=== PATIENT | male | born 1945 | race Caucasian/White ===

== ENCOUNTER 2016-10-29 11:22 | Inpatient (IN) | payer MEDICARE, BC ==
[~2016-10-29] VITALS: Ht 182.9 cm; Wt 99.2 kg
[~2016-10-29 11:22] MED LIST: CALC0.5C6 PO; COLA100C3 PO; RENACAP2 PO; SENS60TA PO; SEVEL800 PO
[2016-10-29 11:23] VITALS: BP 179/106; PULSE 123; RESP 18; TEMP 98.4; O2SAT 97
[2016-10-29] MEDS ORDERED: VANCOMYCIN INJ 1,000 MG in SODIUM CHLOR 0.9% 250 ML INJ 250 ML IV STA (11:47)
--- NOTE | 2016-10-29 12:21 | PD ---
HPI Chief Complaint: Abnormal Results Time Seen by Provider: 11:57 Travel History International Travel<30 days: No Contact w/Intl Traveler<30days: No Traveled to known affect area: No History of Present Illness HPI 71-year-old male patient with history of end-stage renal disease on dialysis and following up with Dr. Danielle, presents to the ER today sent in by Dr. Danielle for osteomyelitis of the spine. Patient apparently had not been feeling well and had low-grade fevers and back pains for the last few weeks, had been on vancomycin for the past month, and had an MRI done several days ago which shows osteomyelitis and discitis at the L1 level. He was sent in for further treatment. Patient denies any recent fevers but is still having some lower back pains. He denies any other symptoms. Modifying Factors: None Associated Signs & Symptoms: Possible osteomyelitis of the lumbar spine Risk Factors: On dialysis PFSH Past Medical History Anemia: Yes Autoimmune Disease: No Cancer: No Cardiovascular Problems: Yes High Cholesterol: Yes Congestive Heart Failure: Yes Diabetes: Yes (PRE) Dialysis: Yes Diminished Hearing: No Endocrine: Yes GERD: Yes Genitourinary: Yes Hepatitis: No Hiatal Hernia: No Hypertension: Yes (hx of ) Immune Disorder: No Implanted Vascular Access Dvce: No Musculoskeletal: Yes Neurologic: No Psychiatric: No Reproductive: No Respiratory: No Immunizations Current: Yes Renal Failure: Yes ( ) Sleep Apnea: Yes (undiagnosed) Thyroid Disease: No Past Surgical History Abdominal Surgery: Yes (UMBILICAL HERNIA REPAIR) Cardiac Surgery: No Ear Surgery: No Endocrine Surgery: No Eye Surgery: No Genitourinary Surgery: No Gynecologic Surgery: No Oral Surgery: No Pacemaker: No Thoracic Surgery: No Other Surgery: Yes (left arm dialysis shunt) Social History Alcohol Use: Yes (Rarely) Tobacco Use: No Substance Use: No Allergies-Medications (Allergen,Severity, Reaction): Coded Allergies: *MDRO Multi-Drug Resistant Organism (Verified Adverse Reaction, Unknown, 03/19/16) MRSA PCR screen POSITIVE - 03/13/16 Reported Meds & Prescriptions Reported Meds & Active Scripts Active Reported Renal Vitamin (B-Complex W/ C & Folic Acid) 1 Cap 1 Cap PO DAILY If on dialysis, take after treatment. Sensipar (Cinacalcet) 60 Mg Tab 60 Mg PO DAILY@1600 Renvela (Sevelamer Carbonate) 800 Mg Tab 3,200 Mg PO TID Colace (Docusate Sodium) 100 Mg Cap 100 Mg PO BID Calcitriol 0.5 Mcg Cap 0.5 Mcg PO DAILY Review of Systems Except as stated in HPI: all other systems reviewed are Neg Physical Exam Narrative GENERAL: Well-developed elderly white male patient currently not in acute distress. Awake and oriented 3. SKIN: Focused skin assessment warm/dry. HEAD: Atraumatic. Normocephalic. EYES: Pupils equal and round. No scleral icterus. No injection or drainage. ENT: No nasal bleeding or discharge. Mucous membranes pink and moist. NECK: Trachea midline. No JVD. CARDIOVASCULAR: Regular rate and rhythm. With a notable systolic murmur. RESPIRATORY: No accessory muscle use. Clear to auscultation. Breath sounds equal bilaterally. GASTROINTESTINAL: Abdomen soft, non-tender, nondistended. Hepatic and splenic margins not palpable. MUSCULOSKELETAL: No obvious deformities. No clubbing. No cyanosis. No edema. NEUROLOGICAL: Awake and alert. No obvious cranial nerve deficits. Motor grossly within normal limits. Normal speech. PSYCHIATRIC: Appropriate mood and affect; insight and judgment normal. Data Data Last Documented VS Vital Signs Date Time Temp Pulse Resp B/P Pulse Ox O2 Delivery O2 Flow Rate FiO2 10/29/16 11:23 98.4 123 18 179/106 97 Orders Complete Blood Count With Diff (10/29/16 11:47) Comprehensive Metabolic Panel (10/29/16 11:47) Lactic Acid Sepsis Protocol (10/29/16 11:47) Blood Culture (10/29/16 11:47) Blood Glucose (10/29/16 11:47) Ecg Monitoring (10/29/16 11:47) Iv Access Insert/Monitor (10/29/16 11:47) Oximetry (10/29/16 11:47) Oxygen Administration (10/29/16 11:47) Vancomycin Inj (Vancomycin Inj) (10/29/16 11:47) Admit Order (Ed Use Only) (10/29/16 14:14) Labs Laboratory Tests Test 10/29/16 12:10 White Blood Count 5.7 TH/MM3 Red Blood Count 2.76 MIL/MM3 Hemoglobin 8.8 GM/DL Hematocrit 25.7 % Mean Corpuscular Volume 93.3 FL Mean Corpuscular Hemoglobin 31.9 PG Mean Corpuscular Hemoglobin 34.2 % Concent Red Cell Distribution Width 14.1 % Platelet Count 378 TH/MM3 Mean Platelet Volume 6.9 FL Neutrophils (%) (Auto) 75.6 % Lymphocytes (%) (Auto) 12.4 % Monocytes (%) (Auto) 8.7 % Eosinophils (%) (Auto) 2.3 % Basophils (%) (Auto) 1.0 % Neutrophils # (Auto) 4.3 TH/MM3 Lymphocytes # (Auto) 0.7 TH/MM3 Monocytes # (Auto) 0.5 TH/MM3 Eosinophils # (Auto) 0.1 TH/MM3 Basophils # (Auto) 0.1 TH/MM3 CBC Comment DIFF FINAL Differential Comment Sodium Level 137 MEQ/L Potassium Level 3.9 MEQ/L Chloride Level 98 MEQ/L Carbon Dioxide Level 27.0 MEQ/L Anion Gap 12 MEQ/L Blood Urea Nitrogen 46 MG/DL Creatinine 11.56 MG/DL Estimat Glomerular Filtration 4 ML/MIN Rate Random Glucose 119 MG/DL Lactic Acid Level 1.2 mmol/L Calcium Level 10.4 MG/DL Total Bilirubin 0.4 MG/DL Aspartate Amino Transf 20 U/L (AST/SGOT) Alanine Aminotransferase 20 U/L (ALT/SGPT) Alkaline Phosphatase 62 U/L Total Protein 6.7 GM/DL Albumin 2.8 GM/DL [facility] Medical Decision Making Medical Screen Exam Complete: Yes Emergency Medical Condition: Yes Medical Record Reviewed: Yes Interpretation(s) Laboratory Tests Test 10/29/16 12:10 Red Blood Count 2.76 MIL/MM3 (4.50-5.90) Hemoglobin 8.8 GM/DL (13.0-17.0) Hematocrit 25.7 % (39.0-51.0) Mean Platelet Volume 6.9 FL (7.0-11.0) Neutrophils (%) (Auto) 75.6 % (16.0-70.0) Monocytes (%) (Auto) 8.7 % (0.0-8.0) Lymphocytes # (Auto) 0.7 TH/MM3 (1.0-4.8) Blood Urea Nitrogen 46 MG/DL (7-18) Creatinine 11.56 MG/DL (0.60-1.30) Estimat Glomerular Filtration 4 ML/MIN (>89) Rate Random Glucose 119 MG/DL (74-106) Calcium Level 10.4 MG/DL (8.5-10.1) Albumin 2.8 GM/DL (3.4-5.0) Differential Diagnosis Osteomyelitis of the lumbar spinerule out sepsis Narrative Course MRI is concerning for osteomyelitis. Case is discussed with Dr. Comer who states that he would have the patient admitted with consult to him. Case was discussed with and were for admission. Patient had been given IV antibiotics, IV vancomycin in the ER. Diagnosis Primary Impression: Osteomyelitis of lumbar spine Admitting Information Admitting Physician Requests: Admit New [place] MD Oct 29, 2016 12:21
[2016-10-29 12:41] LABS: AUTOMATED NEUTROPHIL # 4.3 TH/MM3 (1.8-7.7); BASOPHIL # 0.1 TH/MM3 (0-0.2); EOSINOPHIL # 0.1 TH/MM3 (0-0.4); EOSINOPHIL % 2.3 % (0.0-4.0); HEMATOCRIT 25.7 % (39.0-51.0); HEMO FLAGS DIFF FINAL; LYMPH % 12.4 % (9.0-44.0); LYMPHOCYTE # 0.7 TH/MM3 (1.0-4.8); MEAN CELL VOLUME 93.3 FL (80.0-100.0); MEAN CORPUSCULAR HEMOGLOBIN 31.9 PG (27.0-34.0); MEAN CORPUSCULAR HGB CONC 34.2 % (32.0-36.0); MONO % 8.7 % (0.0-8.0); NEUT % 75.6 % (16.0-70.0); PLATELET COUNT 378 TH/MM3 (150-450); RED BLOOD COUNT 2.76 MIL/MM3 (4.50-5.90); RED CELL DISTRIBUTION WIDTH 14.1 % (11.6-17.2); WHITE BLOOD COUNT 5.7 TH/MM3 (4.0-11.0)
[2016-10-29 13:05] LABS: ALT (GPT) 20 U/L (12-78); ANION GAP 12 MEQ/L (5-15); AST (GOT) 20 U/L (15-37); BLOOD UREA NITROGEN 46 MG/DL (7-18); CHLORIDE 98 MEQ/L (98-107); GLOMERULAR FILTRATION RATE 4 ML/MIN (>89); POTASSIUM 3.9 MEQ/L (3.5-5.1); SODIUM (NA) 137 MEQ/L (136-145)
[2016-10-29 13:07] LABS: ALKALINE PHOSPHATASE 62 U/L (45-117); TOTAL BILIRUBIN ADULT 0.4 MG/DL (0.2-1.0)
[2016-10-29 14:00] VITALS: BP 132/80; PULSE 94; RESP 17; O2SAT 98
--- NOTE | 2016-10-29 14:16 | PD.CONS ---
[facility] Service Neurosurg Consult Requested By Dr Shelton Reason for Consult Diskitis Primary Care Physician Araceli Freire MD History of Present Illness This is a 71-year-old male patient with history of end-stage renal disease, on chronic dialysis treatment, following up with Dr. Freire. He presents to the ER today sent by Dr. Freire for osteomyelitis of the spine. He had not been feeling well and had low-grade fevers and back pains for the last few weeks, had been on vancomycin for the past month, and had an MRI done several days ago which shows osteomyelitis and discitis at the L1. He denies any recent fevers but is still having some lower back pains. He denies any other symptoms. Past Family Social History Allergies: Coded Allergies: *MDRO Multi-Drug Resistant Organism (Verified Adverse Reaction, Unknown, 03/19/16) MRSA PCR screen POSITIVE - 03/13/16 Physical Exam Vital Signs Vital Signs Date Time Temp Pulse Resp B/P Pulse Ox O2 Delivery O2 Flow Rate FiO2 10/29/16 11:23 98.4 123 18 179/106 97 Laboratory Laboratory Tests Test 10/29/16 12:10 White Blood Count 5.7 Red Blood Count 2.76 Hemoglobin 8.8 Hematocrit 25.7 Mean Corpuscular Volume 93.3 Mean Corpuscular Hemoglobin 31.9 Mean Corpuscular Hemoglobin 34.2 Concent Red Cell Distribution Width 14.1 Platelet Count 378 Mean Platelet Volume 6.9 Neutrophils (%) (Auto) 75.6 Lymphocytes (%) (Auto) 12.4 Monocytes (%) (Auto) 8.7 Eosinophils (%) (Auto) 2.3 Basophils (%) (Auto) 1.0 Neutrophils # (Auto) 4.3 Lymphocytes # (Auto) 0.7 Monocytes # (Auto) 0.5 Eosinophils # (Auto) 0.1 Basophils # (Auto) 0.1 CBC Comment DIFF FINAL Differential Comment Sodium Level 137 Potassium Level 3.9 Chloride Level 98 Carbon Dioxide Level 27.0 Anion Gap 12 Blood Urea Nitrogen 46 Creatinine 11.56 Estimat Glomerular Filtration 4 Rate Random Glucose 119 Lactic Acid Level 1.2 Calcium Level 10.4 Total Bilirubin 0.4 Aspartate Amino Transf 20 (AST/SGOT) Alanine Aminotransferase 20 (ALT/SGPT) Alkaline Phosphatase 62 Total Protein 6.7 Albumin 2.8 Date/Time Procedure Status Source Growth 10/29/16 12:15 Aerobic Blood Culture Received Blood Peripheral Pending 10/29/16 12:15 Anaerobic Blood Culture Received Blood Peripheral Pending Result Diagram: 10/29/16 1210 10/29/16 1210 Attending Statement Neuro. Recommend admission. Obtain ESR, CRP. neuro checks in a serial fashion. CT guided biopsy of the disk space. Start immediate empiric IV antibiotics with vancomycin, Fortaz, Flagyl as he is at risk for sudden clinical deterioration . HTN. Treat with antihypertensives as needed Pulmonary. aggressive pulmonary toilette, nasotracheal suction, and breathing treatments with nebulizers. PT and OT evaluation Nutrition. NPO Renal. Continue diualysis. monitor closely urine output, BUN and creatinine Endocrine. Monitor serial Acu checks and SSI as needed in detail ID Iv ABX. Consult infectious disease Protonix for stress ulcer prophylaxis Isai galaviz and SCD's for DVT prophylaxis The exam, history, and the medical decision-making described in the above note were completed with the assistance of the mid-level provider. I reviewed and agree with the findings presented. I attest that I had a [id number] encounter with the patient on the same day, and personally performed and documented my assessment and findings in the medical record. John Comer MD Oct 29, 2016 14:16
[2016-10-29] MEDS ORDERED: MORPHINE SULFATE 4 MG/ML INJ IV PUSH PRN (16:00)
[2016-10-29] MEDS ORDERED: fentaNYL CITRATE 250 MCG/5 ML AMP ONE (17:00)
[2016-10-29] MEDS ORDERED: MIDAZOLAM HCL 5 MG/5 ML VIAL ONE (17:00)
[2016-10-29 17:03] LABS: APTT (PATIENT) 26.4 SEC (24.3-30.1); PROTHROMBIN TIME - PATIENT 11.3 SEC (9.8-11.6)
--- NOTE | 2016-10-29 17:25 | HHI.HP ---
[facility] Service [facility] Primary Care Physician Araceli Freire MD Admission Diagnosis osteomyelitis of the lumbar spine Diagnoses: Chief Complaint: back pain Travel History International Travel<30 Days: No Contact w/Intl Traveler <30 Da: No Traveled to Known Affected Are: No History of Present Illness This is a pleasant 71-year-old gentleman with a past medical history which includes high cholesterol, CHF, diabetes mellitus diet controlled, end- stage renal disease with hemodialysis, GERD, hypertension. Patient was sent to the emergency room by his department secretary Dr. Freire. Apparently, patient had been having low-grade fevers and back pains for the last few weeks. He had been on vancomycin for the past month. He had an MRI done several days ago which showed osteomyelitis and discitis at level I. Eyes any recent fevers, no chills. He still having some low back pain. Denies any cough, no sputum production. Patient was last admitted to this facility February 2016 after he was found with MSSA bacteremia and required IV antibiotics. Prior to that in 2014, he was found with strep sepsis and discitis as well as septic right shoulder that require arthroplasty. Patient has been evaluated by neurosurgery , Dr. Comer recommended CT-guided biopsy of disc space. He has been started on empiric antibiotics and cultures have been obtained. At this time, patient is going to interventional radiology for biopsy. Patient is hemodynamically stable. He has no other complaints. Patient is admitted for further evaluation and treatment Review of Systems Constitutional: DENIES: Diaphoretic episodes, Fatigue, Fever, Weight gain, Weight loss, Chills, Dizziness, Change in appetite, Night Sweats Endocrine: DENIES: Heat/cold intolerance, Polydipsia, Polyuria, Polyphagia Eyes: DENIES: Blurred vision, Diplopia, Eye inflammation, Eye pain, Vision loss , Photosensitivity, Double Vision Ears, nose, mouth, throat: DENIES: Tinnitus, Hearing loss, Vertigo, Nasal discharge, Oral lesions, Throat pain, Hoarseness, Ear Pain, Running Nose, Epistaxis, Sinus Pain, Toothache, Odynophagia Respiratory: DENIES: Apneas, Cough, Snoring, Wheezing, Hemoptysis, Sputum production, Shortness of breath Cardiovascular: DENIES: Chest pain, Palpitations, Syncope, Dyspnea on Exertion , PND, Lower Extremity Edema, Orthopnea, Claudication Gastrointestinal: DENIES: Abdominal pain, Black stools, Bloody stools, Constipation, Diarrhea, Nausea, Vomiting, Difficulty Swallowing, Anorexia Genitourinary: DENIES: Sexual dysfunction, Urinary frequency, Urinary incontinence, Urgency, Hematuria, Dysuria, Nocturia, Penile Discharge, Testicular Pain, Testicular Swelling Musculoskeletal: COMPLAINS OF: Back pain, DENIES: Joint pain, Muscle aches, Stiffness, Joint Swelling, Neck pain Integumentary: DENIES: Abnormal pigmentation, Nail changes, Pruritus, Rash Hematologic/lymphatic: DENIES: Bruising, Lymphadenopathy Immunologic/allergic: DENIES: Eczema, Urticaria Neurologic: DENIES: Abnormal gait, Headache, Localized weakness, Paresthesias, Seizures, Speech Problems, Tremor, Poor Balance Psychiatric: DENIES: Anxiety, Confusion, Mood changes, Depression, Hallucinations, Agitation, Suicidal Ideation, Homicidal Ideation, Delusions Past Family Social History Past Medical History high cholesterol, CHF, diabetes mellitus diet controlled, end-stage renal disease with hemodialysis, GERD, hypertension Admitted in March 2015 with strep sepsis, discitis, as well as septic right shoulder. Required Arthroplasty R shoulder with Dr. Alcantar MSSA bacteremia 02/2016, no source was found. Had LEONARD. Required IV antibiotics as OP Past Surgical History Umbilical hernia repair, AV fistula left forearm,04/08/2015 Arthroplasty R shoulder with Dr. Alcantar Reported Medications Reported Meds & Active Scripts Active Reported Renal Vitamin (B-Complex W/ C & Folic Acid) 1 Cap 1 Cap PO DAILY If on dialysis, take after treatment. Sensipar (Cinacalcet) 60 Mg Tab 60 Mg PO DAILY@1600 Renvela (Sevelamer Carbonate) 800 Mg Tab 3,200 Mg PO TID Colace (Docusate Sodium) 100 Mg Cap 100 Mg PO BID Calcitriol 0.5 Mcg Cap 0.5 Mcg PO DAILY Allergies: Coded Allergies: *MDRO Multi-Drug Resistant Organism (Verified Adverse Reaction, Unknown, 03/19/16) MRSA PCR screen POSITIVE - 03/13/16 Active Ordered Medications Inpatient Medications Acetaminophen (Tylenol) 650 mg Q4H PRN PO Temp > 100.4; Start 10/29/16 at 17:30 Al Hydrox/Mg Hydrox/Simethicone (Mag-Al Plus Susp Liq) 30 ml Q6H PRN PO DYSPEPSIA; Start 10/29/16 at 17:30 Calcitriol (Rocaltrol) 0.5 mcg DAILY PO ; Start 10/30/16 at 09:00 Cinacalcet (Sensipar) 60 mg DAILY@1600 PO ; Start 10/29/16 at 16:00 Docusate Sodium (Colace) 100 mg BID PO ; Start 10/29/16 at 21:00 Magnesium Hydroxide (Milk Of Magnsasha Liq) 30 ml DAILY PRN PO for Severe Constipation; Start 10/29/16 at 17:30 Morphine Sulfate (Morphine Inj) 4 mg Q4H PRN IV PUSH PAIN 5 TO 10; Start at 16:00 Ondansetron HCl (Zofran Inj) 4 mg Q6H PRN IV NAUSEA; Start 10/29/16 at 17:30 Sevelamer Carbonate (Renvela) 3,200 mg TID PO ; Start 10/29/16 at 18:00 Vancomycin HCl/ Sodium Chloride (Vancomycin Inj/ NS 250 ml Inj) 250 ml @ 250 mls/hr ONCE STAT IV Last administered on 10/29/16t 14:14; Start 10/29/16 at 11 :47; Stop 10/29/16 at 12:46; Status DC Vitamin B Complex/ Vit C/Folic Acid (Nephrocaps) 1 cap DAILY PO ; Start at 09:00 Family History Reviewed and noncontributory Social History Currently lives with roommates Reports rare EtOH use Denies tobacco use now or in the past Denies illicit drug use Physical Exam Vital Signs Vital Signs Date Time Temp Pulse Resp B/P Pulse Ox O2 Delivery O2 Flow Rate FiO2 10/29/16 14:00 94 17 132/80 98 Room Air 10/29/16 11:23 98.4 123 18 179/106 97 Physical Exam GENERAL: This is a well-nourished, well-developed patient, in no apparent distress. SKIN: No rashes, ecchymoses or lesions. Cool and dry. HEAD: Atraumatic. Normocephalic. No temporal or scalp tenderness. EYES: Pupils equal round and reactive. Extraocular motions intact. No scleral icterus. No injection or drainage. ENT: Nose without bleeding, purulent drainage or septal hematoma. Throat without erythema, tonsillar hypertrophy or exudate. Uvula midline. Airway patent. NECK: Trachea midline. No JVD or lymphadenopathy. Supple, nontender, no meningeal signs. CARDIOVASCULAR: Regular rate and rhythm without murmurs, gallops, or rubs. RESPIRATORY: Clear to auscultation. Breath sounds equal bilaterally. No wheezes , rales, or rhonchi. GASTROINTESTINAL: Abdomen soft, non-tender, nondistended. No hepato-splenomegaly , or palpable masses. No guarding. MUSCULOSKELETAL: Extremities without clubbing, cyanosis, or edema. No joint tenderness, effusion, or edema noted. No calf tenderness. Negative Homans sign bilaterally. NEUROLOGICAL: Awake and alert. Cranial nerves II through XII intact. Motor and sensory grossly within normal limits. Five out of 5 muscle strength in all muscle groups. Normal speech. Laboratory Laboratory Tests Test 10/29/16 10/29/16 12:10 16:20 White Blood Count 5.7 Red Blood Count 2.76 Hemoglobin 8.8 Hematocrit 25.7 Mean Corpuscular Volume 93.3 Mean Corpuscular Hemoglobin 31.9 Mean Corpuscular Hemoglobin 34.2 Concent Red Cell Distribution Width 14.1 Platelet Count 378 Mean Platelet Volume 6.9 Neutrophils (%) (Auto) 75.6 Lymphocytes (%) (Auto) 12.4 Monocytes (%) (Auto) 8.7 Eosinophils (%) (Auto) 2.3 Basophils (%) (Auto) 1.0 Neutrophils # (Auto) 4.3 Lymphocytes # (Auto) 0.7 Monocytes # (Auto) 0.5 Eosinophils # (Auto) 0.1 Basophils # (Auto) 0.1 CBC Comment DIFF FINAL Differential Comment Sodium Level 137 Potassium Level 3.9 Chloride Level 98 Carbon Dioxide Level 27.0 Anion Gap 12 Blood Urea Nitrogen 46 Creatinine 11.56 Estimat Glomerular Filtration 4 Rate Random Glucose 119 Lactic Acid Level 1.2 Calcium Level 10.4 Total Bilirubin 0.4 Aspartate Amino Transf 20 (AST/SGOT) Alanine Aminotransferase 20 (ALT/SGPT) Alkaline Phosphatase 62 Total Protein 6.7 Albumin 2.8 Prothrombin Time 11.3 Prothromb Time International 1.0 Ratio Activated Partial 26.4 Thromboplast Time Date/Time Procedure Status Source Growth 10/29/16 12:15 Aerobic Blood Culture Received Blood Peripheral Pending 10/29/16 12:15 Anaerobic Blood Culture Received Blood Peripheral Pending Result Diagram: 10/29/16 1210 10/29/16 1210 Assessment and Plan Problem List: (1) Osteomyelitis of lumbar spine (2) Discitis (3) Murmur, cardiac (4) Diabetes (5) Anemia (6) ESRD (end stage renal disease) on dialysis Assessment and Plan Admit to Dr. Chang 71-year-old male patient with history of MSSA bacteremia, strep sepsis and discitis and septic right shoulder. Presented to the emergency room with complaint of back pain, had MRI done as outpatient showing osteomyelitis and discitis at L1 level. -Neurosurgery has been consulted, Dr. Comer has evaluated patient and recommended CT-guided biopsy. -Patient going to interventional radiology for biopsy -Continue with empiric antibiotics and follow cultures -Consult infectious disease for assistance with antibiotic management ESRD on HD -Nephrology consult -HD per schedule HTN, stable -We'll have nursing complete medication reconciliation. -We'll add clonidine 0.1 mg by mouth every 6 when necessary for systolic greater than 160 and diastolic greater than 90 Diet controlled diabetes -Accuchecks with low dose ISS Anemia, secondary to chronic kidney disease Monitor CBC closely, hemoglobin 8.8, noted with drop since last admission when he was 12. Murmur, stable Continue to monitor Home medications reviewed, some initiated as indicated. SCDs for DVT prophylaxis Plan of care discussed with attending, RN, and pt. Further management of the patient will be dependent on the hospital course. This patient was seen by myself and Dr. Chang, this H/P is written on his behalf. Physician Certification 2 Midnight Certification Type: Admission for Inpatient Services Order for Inpatient Services The services are ordered in accordance with Medicare regulations or non- Medicare payer requirements, as applicable. In the case of services not specified as inpatient-only, they are appropriately provided as inpatient services in accordance with the 2-midnight benchmark. Estimated LOS (days): 2 2 days is the estimated time the patient will need to remain in the hospital, assuming treatment plan goals are met and no additional complications. 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
[2016-10-29] MEDS ORDERED: ALUMINUM/MAGNESIUM/SIMETH 30 ML CUP PO PRN (17:30)
[2016-10-29] MEDS ORDERED: ONDANSETRON HCL 4 MG/2 ML VIAL IV PRN ×2 (17:30→19:45)
[2016-10-29] MEDS ORDERED: ACETAMINOPHEN 325 MG TAB PO PRN (17:30)
--- NOTE | 2016-10-29 17:47 | PD.RAD ---
Post Procedure Progress Note Pre Procedure Diagnosis: (1) Discitis Post Procedure Diagnosis: (1) Discitis Procedure Date: Oct 29, 2016 Supervising Radiologist: Alexys Nicolas Anesthesia: Local, Conscious Sedation Plan of Activity Patient to Unit: Other Patient Condition: Good Additional Comments: 3---Biopsies of the L1/L2 disc space taken and sent to pathology Pt tolerated procedure well. See PACS Report for procedural detail/treatment Alexys Nicolas MD Oct 29, 2016 17:47
[2016-10-29] MEDS ORDERED: DEXTROSE 50% IN WATER 50 ML VIAL(D50) IV PRN (19:15)
[2016-10-29] MEDS ORDERED: GLUCAGON 1 MG/ML VIAL OTHER PRN (19:15)
[2016-10-29] MEDS ORDERED: cloNIDine HCL 0.1 MG TAB PO PRN ×2 (19:30→19:45)
--- NOTE | 2016-10-29 19:42 | PD.CONS ---
HPI Service Nephrology Consult Requested By Dr. Chang Reason for Consult ESRD management Primary Care Physician Araceli Freire MD History of Present Illness Patient is a 71-year-old male with history of end-stage renal disease with recurrent staph aureus infection who was out of town and developed fever and discovered to have similar infection. Patient came back and I advised the nurse to order MRI of thoracic spine and lumbar spine, Dr. Draper called me and reported thoracic epidural abscess, and lumbar spine showed discitis, patient was directed to come to the emergency for evaluation, neurosurgery has seen him and a biopsy of the disc was done. Patient to home hemodialysis and he missed his dialysis today. Review of Systems Constitutional: COMPLAINS OF: Fatigue, Fever Musculoskeletal: COMPLAINS OF: Joint pain, Back pain Past Family Social History Allergies: Coded Allergies: *MDRO Multi-Drug Resistant Organism (Verified Adverse Reaction, Unknown, 03/19/16) MRSA PCR screen POSITIVE - 03/13/16 Past Medical History End-stage renal disease Recurrent discitis Hypertension History of diabetes Left forearm AV fistula Anemia Past Surgical History History fistula left forearm ORIF of the left wrist Umbilical hernia repair Rotator cuff repair Reported Medications Reported Meds & Active Scripts Active Reported Renal Vitamin (B-Complex W/ C & Folic Acid) 1 Cap 1 Cap PO DAILY If on dialysis, take after treatment. Sensipar (Cinacalcet) 60 Mg Tab 60 Mg PO DAILY@1600 Renvela (Sevelamer Carbonate) 800 Mg Tab 3,200 Mg PO TID Colace (Docusate Sodium) 100 Mg Cap 100 Mg PO BID Calcitriol 0.5 Mcg Cap 0.5 Mcg PO DAILY Active Ordered Medications Current Medications Medications (Trade) Dose Ordered Sig/Zenobia Route Start Time Stop Time Status Last Admin (Nephrocaps) 1 cap DAILY PO 10/30/16 09:00 (Rocaltrol) 0.5 mcg DAILY PO 10/30/16 09:00 (Colace) 100 mg BID PO 10/29/16 21:00 (Renvela) 3,200 mg TID PO 10/29/16 18:00 (Sensipar) 60 mg DAILY@1600 PO 10/29/16 16:00 (Morphine Inj) 4 mg Q4H PRN IV PUSH 10/29/16 16:00 (Tylenol) 650 mg Q4H PRN PO 10/29/16 17:30 (Zofran Inj) 4 mg Q6H PRN IV 10/29/16 17:30 (Milk Of Magnesia Liq) 30 ml DAILY PRN PO 10/29/16 17:30 (Mag-Al Plus Susp Liq) 30 ml Q6H PRN PO 10/29/16 17:30 (D50w (Vial) Inj) 50 ml UNSCH PRN IV 10/29/16 19:15 UNV (Glucagon Inj) 1 mg UNSCH PRN OTHER 10/29/16 19:15 UNV (Catapres) 0.1 mg Q6H PRN PO 10/29/16 19:30 UNV Family History Noncontributory Social History Denies smoking or alcohol Physical Exam Vital Signs Vital Signs Date Time Temp Pulse Resp B/P Pulse Ox O2 Delivery O2 Flow Rate FiO2 10/29/16 19:00 93 17 148/96 100 Room Air 10/29/16 18:30 91 15 161/96 99 Room Air 10/29/16 18:15 93 17 139/89 98 Room Air 10/29/16 18:00 97 16 136/83 97 Room Air 10/29/16 17:59 97.7 98 16 131/79 97 Room Air 10/29/16 14:00 94 17 132/80 98 Room Air 10/29/16 11:23 98.4 123 18 179/106 97 Physical Exam GENERAL: Well-nourished, well-developed patient. SKIN: Warm and dry. HEAD: Normocephalic. EYES: No scleral icterus. No injection or drainage. NECK: Supple, trachea midline. No JVD or lymphadenopathy. CARDIOVASCULAR: Regular rate and rhythm without murmurs, gallops, or rubs. 346 systolic murmur RESPIRATORY: Breath sounds equal bilaterally. No accessory muscle use. GASTROINTESTINAL: Abdomen soft, non-tender, nondistended. EXTREMITIES: No cyanosis, or edema. AV fistula left forearm NEUROLOGICAL: Awake, alert, and oriented x 3. Non-focal. Laboratory Laboratory Tests Test 10/29/16 10/29/16 12:10 16:20 White Blood Count 5.7 Red Blood Count 2.76 Hemoglobin 8.8 Hematocrit 25.7 Mean Corpuscular Volume 93.3 Mean Corpuscular Hemoglobin 31.9 Mean Corpuscular Hemoglobin 34.2 Concent Red Cell Distribution Width 14.1 Platelet Count 378 Mean Platelet Volume 6.9 Neutrophils (%) (Auto) 75.6 Lymphocytes (%) (Auto) 12.4 Monocytes (%) (Auto) 8.7 Eosinophils (%) (Auto) 2.3 Basophils (%) (Auto) 1.0 Neutrophils # (Auto) 4.3 Lymphocytes # (Auto) 0.7 Monocytes # (Auto) 0.5 Eosinophils # (Auto) 0.1 Basophils # (Auto) 0.1 CBC Comment DIFF FINAL Differential Comment Sodium Level 137 Potassium Level 3.9 Chloride Level 98 Carbon Dioxide Level 27.0 Anion Gap 12 Blood Urea Nitrogen 46 Creatinine 11.56 Estimat Glomerular Filtration 4 Rate Random Glucose 119 Lactic Acid Level 1.2 Calcium Level 10.4 Total Bilirubin 0.4 Aspartate Amino Transf 20 (AST/SGOT) Alanine Aminotransferase 20 (ALT/SGPT) Alkaline Phosphatase 62 Total Protein 6.7 Albumin 2.8 Prothrombin Time 11.3 Prothromb Time International 1.0 Ratio Activated Partial 26.4 Thromboplast Time Date/Time Procedure Status Source Growth 10/29/16 12:15 Aerobic Blood Culture Received Blood Peripheral Pending 10/29/16 12:15 Anaerobic Blood Culture Received Blood Peripheral Pending Result Diagram: 10/29/16 1210 10/29/16 1210 Assessment and Plan Problem List: (1) ESRD (end stage renal disease) on dialysis Plan: I will provide him with hemodialysis 3 times a week while he is in the hospital it can be arranged for tomorrow continue to monitor his progress The case was discussed with Dr. 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
[2016-10-29] MEDS ORDERED: SODIUM CHLOR 0.9% 1000 ML INJ 1,000 ML IV PRN ×3 (19:43)
[2016-10-29] MEDS ORDERED: SODIUM CHLORIDE 0.9% FLUSH 10 ML FLUSH IV FLUSH PRN (19:45)
[2016-10-29] MEDS ORDERED: HEPARIN SODIUM - IV 10,000 UNITS/10 ML VIAL IVF PRN (19:45)
[2016-10-29] MEDS ORDERED: NITROGLYCERIN 0.4 MG SL 25 TABS/BTL SL PRN (19:45)
[2016-10-29] MEDS ORDERED: MANNITOL 12.5 GM/50 ML VIAL IV PRN (19:45)
[2016-10-29] MEDS ORDERED: diphenhydrAMINE HCL 25 MG CAP PO PRN (19:45)
[2016-10-29] MEDS ORDERED: ALBUMIN HUMAN 25% 25 GM/100 ML BAGP IV PRN (19:45)
[2016-10-29] MEDS ORDERED: GELATIN 12 MM/7 MM FOAM TOP PRN (19:45)
[2016-10-29 20:00] VITALS: BP 153/95; PULSE 93; RESP 18; TEMP 96.5; O2SAT 96
[2016-10-29] MEDS: VANCOMYCIN INJ 1,000 MG in SODIUM CHLOR 0.9% 250 ML INJ 250 ML IV ONE ×2 (20:00→20:56)
[2016-10-29] MEDS ORDERED: CEFEPIME INJ 2,000 MG in SODIUM CHLORIDE 0.9% INJ 100 ML IV PRN (20:15)
[2016-10-29] MEDS: INSULIN ASPART SUPPLEMENTAL SCALE SQ SCH (20:56)
[2016-10-29] MEDS: DOCUSATE SODIUM 100 MG CAP PO SCH (20:56)
[2016-10-30] MEDS: INSULIN ASPART SUPPLEMENTAL SCALE SQ SCH ×4 (07:00→21:00)
[2016-10-30] MEDS: DOCUSATE SODIUM 100 MG CAP PO SCH ×2 (08:29→22:53)
[2016-10-30] MEDS: SEVELAMER CARBONATE 800 MG TAB PO SCH ×3 (08:29→18:13)
[2016-10-30] MEDS: VITAMIN B CMPLX/VITC/FOLIC AC CAP PO SCH (08:30)
[2016-10-30] MEDS: CALCITRIOL 0.25 MCG CAP PO SCH (08:30)
[2016-10-30 09:23] LABS: POTASSIUM 4.2 MEQ/L (3.5-5.1)
--- NOTE | 2016-10-30 11:07 | HHI.NPPN ---
Subjective History of Present Illness Hx back pain MRI T spine Epidural spine MRI L spine Discitis Review of Systems General Constitutional: Fatigue Objective Data Data 10/29/16 10/30/16 19:00 07:00 Intake Total 240 ml Balance 240 ml Intake Oral 240 ml IV Total 0 ml # Voids 1 Vital Signs Date Time Temp Pulse Resp B/P Pulse Ox O2 Delivery O2 Flow Rate FiO2 10/29/16 20:00 96.5 93 18 153/95 96 10/29/16 19:30 98.0 92 15 147/91 99 Room Air 10/29/16 19:00 93 17 148/96 100 Room Air 10/29/16 18:30 91 15 161/96 99 Room Air 10/29/16 18:15 93 17 139/89 98 Room Air 10/29/16 18:00 97 16 136/83 97 Room Air 10/29/16 17:59 97.7 98 16 131/79 97 Room Air 10/29/16 14:00 94 17 132/80 98 Room Air 10/29/16 11:23 98.4 123 18 179/106 97 -: 10/29/16 1210 10/30/16 0744 Microbiology 10/29/16 Aerobic Blood Culture, Received Pending 10/29/16 Anaerobic Blood Culture, Received Pending 10/29/16 Aerobic Blood Culture, Received Pending 10/29/16 Anaerobic Blood Culture, Received Pending Physical Exam General Appearance: Well Developed, Well Nourished Eyes Eye Exam: Pupils Equal Neck Neck Exam: Neck Supple Pulmonary Resp Exam: Clear Bilaterally, Breath Sounds Equal Cardiology CV Exam: Regular, Normal Sinus Rhythm Gastrointestinal/Abdomen GI Exam: Soft, Non-Tender, Bowel Sounds Present Extremeties Extremities Exam: No Edema Assessment/Plan Problem List: (1) ESRD (end stage renal disease) on dialysis Plan: he is seen during dialysis 3 L UF Vancomycin follow ID Neuro surgery for Epidural Abscess continue to monitor (2) Osteomyelitis of lumbar spine Plan: On vancomycin and this will continue with dialysis (3) 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
[2016-10-30] MEDS: EPOETIN ALFA 10,000 UNITS/ML VIAL IV PRN (11:19)
[2016-10-30] MEDS: VANCOMYCIN INJ 1,000 MG in SODIUM CHLOR 0.9% 250 ML INJ 250 ML IV SCH (11:20)
[2016-10-30 11:35] VITALS: O2SAT 96
--- NOTE | 2016-10-30 14:14 | PD.CONS ---
History of Present Illness Service Infectious disease Consult Requested By Dr Bayron Chang Reason for Consult Evaluate patient with discitis, vertebral osteo- Primary Care Physician Araceli Freire MD Diagnoses: History of Present Illness Patient seen and examined. Records reviewed. Patient is a 71-year-old male, with history of end-stage renal disease, does home hemodialysis, admitted to the hospital after he had an MRI that showed abnormality in his lumbar spine. Patient had prior history of treatment for's group B strep sepsis with discitis in T11 L1, back in 2014. He had a septic right shoulder at that time, and underwent surgery, and his culture had staph epidermides. He was treated with 8 weeks of antibiotics, and there was improvement in his back pain. Patient last year was admitted for MSSA bacteremia, and source at that time was not clearly defined, and he even had a LEONARD done which did not show any evidence of endocarditis. He received 6 weeks of IV vancomycin. Patient has been doing fine, up until the middle of September when he went to [place] for a two-week vacation. He was going to the dialysis clinic close to him in [place], and while he was there he started having problem with back pain. It was in his low back. The nephrologists who follows him in [place] started him on IV vancomycin. When he came back here, he was continued on his IV vancomycin. He had imaging studies done, and the MRI showed evidence of infection in the lumbar spine. Patient was told to go to the hospital for further evaluation and treatment. He has not had any fever or chills or sweats. The back pain has improved. He has not had any problem with skin infection. No problem with his AV fistula. No respiratory, GI or any urinary complaints. Patient underwent CT-guided aspiration of L1. The blood cultures were done yesterday. One of the 2 blood culture is now showing gram- positive cocci in pairs and clusters. Patient was started on vancomycin and cefepime yesterday. Infectious disease consultation has been requested to evaluate the patient. Review of Systems Constitutional: DENIES: Fever, Chills, Night Sweats Eyes: DENIES: Eye pain Ears, nose, mouth, throat: DENIES: Nasal discharge, Oral lesions, Throat pain, Ear Pain, Sinus Pain Respiratory: DENIES: Cough, Shortness of breath Cardiovascular: DENIES: Chest pain, Palpitations, Syncope, Lower Extremity Edema Gastrointestinal: DENIES: Abdominal pain, Diarrhea, Nausea, Vomiting Genitourinary: DENIES: Dysuria Musculoskeletal: COMPLAINS OF: Back pain, DENIES: Joint pain, Neck pain Integumentary: DENIES: Rash Psychiatric: DENIES: Confusion, Hallucinations Past Family Social History Allergies: Coded Allergies: *MDRO Multi-Drug Resistant Organism (Verified Adverse Reaction, Unknown, 03/19/16) MRSA PCR screen POSITIVE - 03/13/16 Past Medical History Hypertension Diabetes ESRD, on hemodialysis Pneumonia Osteoarthritis Hyperlipidemia Strep sepsis last March 2015 Discitis treated last March 2015 Right shoulder septic joint, had surgery, and treated last March 2015 Past Surgical History ORIF left wrist Umbilical hernia repair Left forearm AV fistula Surgery on the right shoulder Active Ordered Medications Tylenol Antacids Albumin Rocaltrol Sensipar Clonidine Benadryl Colace Epogen Heparin Insulin MOM Mannitol Morphine SL NTG Zofran Renvela Vancomycin Social History Lives at home, has some roommates Denies smoking history Denies alcohol abuse Denies illicit drug use Physical Exam Vital Signs Vital Signs Date Time Temp Pulse Resp B/P Pulse Ox O2 Delivery O2 Flow Rate FiO2 10/30/16 11:35 96 10/29/16 20:00 96.5 93 18 153/95 96 10/29/16 19:30 98.0 92 15 147/91 99 Room Air 10/29/16 19:00 93 17 148/96 100 Room Air 10/29/16 18:30 91 15 161/96 99 Room Air 10/29/16 18:15 93 17 139/89 98 Room Air 10/29/16 18:00 97 16 136/83 97 Room Air 10/29/16 17:59 97.7 98 16 131/79 97 Room Air Physical Exam GENERAL: Patient is a well-nourished, well-developed CM, awake and alert, not in respiratory distress. SKIN: Warm and dry. No generalized rash, no ecchymoses and no evidence of embolic lesions. HEAD: Atraumatic. Normocephalic. No temporal wasting, or tenderness. EYES: [place] conjunctiva. No petechia or hemorrhage. Pupils equal, round and reactive to light. Extraocular movements full and intact. No scleral icterus. No injection or drainage. EARS, NOSE AND THROAT: Nose without bleeding or purulent nasal discharge. No sinus tenderness. Mucous membranes pink and moist. No oral lesions noted. No exudate. No oral thrush. NECK: Trachea midline. Supple and not tender, no meningeal signs CARDIOVASCULAR: Regular rate and rhythm. No murmurs, rubs or gallops heard RESPIRATORY: Clear to auscultation. Breath sounds equal bilaterally. No rales , wheezing or rhonchi ABDOMEN: Soft, non-tender, nondistended. Bowel sounds present and normoactive. No guarding. No rebound. No organomegaly. EXTREMITIES: No clubbing, cyanosis, or edema. No joint effusion, has good ROM. No calf tenderness. Well perfused and warm. AVF looks ok NEUROLOGICAL: Awake and alert. Cranial nerves grossly intact. Motor grossly within normal limits. PSYCHIATRIC: Normal affect, calm and cooperative. LINE: No evidence of infection Laboratory Laboratory Tests Test 10/29/16 10/30/16 16:20 07:44 Prothrombin Time 11.3 Prothromb Time International 1.0 Ratio Activated Partial 26.4 Thromboplast Time Sodium Level 135 Potassium Level 4.2 Chloride Level 96 Carbon Dioxide Level 23.0 Anion Gap 16 Blood Urea Nitrogen 49 Creatinine 12.53 Estimat Glomerular Filtration 4 Rate Random Glucose 92 Calcium Level 10.1 Date/Time Procedure Status Source Growth 10/29/16 17:32 Gram Stain Received Fluid Other Pending 10/29/16 17:32 Body Fluid Culture Received Fluid Other Pending 10/29/16 17:32 Fungal Smear Received Fluid Other Pending 10/29/16 17:32 Fungal Culture Received Fluid Other Pending 10/29/16 17:32 Acid Fast Stain Received Fluid Other Pending 10/29/16 17:32 Mycobacterial Culture Received Fluid Other Pending 10/29/16 12:15 Aerobic Blood Culture - Preliminary Resulted Blood Peripheral NO GROWTH IN 1 DAY 10/29/16 12:15 Anaerobic Blood Culture - Preliminary Resulted Blood Peripheral NO GROWTH IN 1 DAY Result Diagram: 10/29/16 1210 10/30/16 0744 Assessment and Plan Assessment and Plan IMPRESSION Discitis spine, L1 - previous Rx for Tll-L1 discitis 2014, had BC with GBS - ?recurrent infection - ?new infection from seeding of his MSSA bacteremia that was Rx 2015 (LEONARD negative) - his BC has GPC in pairs and clusters ESRD Patient on transplant list RECOMMENDATION I have added cultures to the disc aspirate Follow C/S and path report Continue Vanco Add Ancef for MSSA coverage Repeat BC ESR and CRP Neurosurgery following also Monitor progress US AVF to check for thrombus Will determine course of Rx once work-up completed I will follow along with you Thank you for this consultation Discussed Condition With Explained plan to the patient Angela Farmer MD Oct 30, 2016 14:14
[2016-10-30] MEDS: ceFAZolin 2 GM PREMIX 50 ML IV SCH (15:17)
[2016-10-30 16:00] VITALS: BP 119/76; PULSE 91; RESP 18; TEMP 99.2; O2SAT 97
--- NOTE | 2016-10-30 16:34 | HHI.PR ---
Subjective Remarks low back pain no paresthesias sitting up in [place] no fever no cp no sob feeling discouraged over admission and infection, he will be removed from transplant list. not sleeping much, requesting Restoril. Objective Objective Results - Vital Signs Date Time Temp Pulse Resp B/P Pulse Ox O2 Delivery O2 Flow Rate FiO2 10/30/16 11:35 96 10/29/16 20:00 96.5 93 18 153/95 96 10/29/16 19:30 98.0 92 15 147/91 99 Room Air 10/29/16 19:00 93 17 148/96 100 Room Air 10/29/16 18:30 91 15 161/96 99 Room Air 10/29/16 18:15 93 17 139/89 98 Room Air 10/29/16 18:00 97 16 136/83 97 Room Air 10/29/16 17:59 97.7 98 16 131/79 97 Room Air I/O 10/29/16 10/29/16 10/29/16 10/30/16 10/30/16 10/30/16 07:00 15:00 23:00 07:00 15:00 23:00 Intake Total 0 ml 240 ml 50 ml Output Total 3000 ml Balance 0 ml 240 ml -3000 ml 50 ml Intake Oral 0 ml 240 ml IV Total 0 ml 50 ml Output Hemodialysis 3000 ml # Voids 0 1 Result Diagram: 10/29/16 1210 10/30/16 0744 Other Results Laboratory Tests Test 10/30/16 07:44 Sodium Level 135 Potassium Level 4.2 Chloride Level 96 Carbon Dioxide Level 23.0 Anion Gap 16 Blood Urea Nitrogen 49 Creatinine 12.53 Estimat Glomerular Filtration 4 Rate Random Glucose 92 Calcium Level 10.1 Date/Time Procedure Status Source Growth 10/30/16 15:35 Aerobic Blood Culture Received Blood Peripheral Pending 10/30/16 15:35 Anaerobic Blood Culture Received Blood Peripheral Pending 10/29/16 17:32 Gram Stain Received Fluid Other Pending 10/29/16 17:32 Body Fluid Culture Received Fluid Other Pending 10/29/16 17:32 Fungal Smear Received Fluid Other Pending 10/29/16 17:32 Fungal Culture Received Fluid Other Pending 10/29/16 17:32 Acid Fast Stain Received Fluid Other Pending 10/29/16 17:32 Mycobacterial Culture Received Fluid Other Pending 10/29/16 12:15 Aerobic Blood Culture - Preliminary Resulted Blood Peripheral NO GROWTH IN 1 DAY 10/29/16 12:15 Anaerobic Blood Culture - Preliminary Resulted Blood Peripheral NO GROWTH IN 1 DAY ROS General: No: Fatigue, Weakness HEENT: No: Sore Throat, Dysphagia Cardiac: No: Chest Pain, Edema, Palpitations Pulmonary: No: Cough, SOB, Wheezing GI: No: Abdominal Pain, BM, Diarrhea, N/V /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 SKIN: No rashes, ecchymoses or lesions. Cool and dry. HEAD: Atraumatic. Normocephalic. No temporal or scalp tenderness. EYES: Pupils equal round and reactive. Extraocular motions intact. No scleral icterus. No injection or drainage. ENT: Nose without bleeding, purulent drainage or septal hematoma. Throat without erythema, tonsillar hypertrophy or exudate. Uvula midline. Airway patent. NECK: Trachea midline. No JVD or lymphadenopathy. Supple, nontender, no meningeal signs. CARDIOVASCULAR: Regular rate and rhythm without murmurs, gallops, or rubs. RESPIRATORY: Clear to auscultation. Breath sounds equal bilaterally. No wheezes , rales, or rhonchi. GASTROINTESTINAL: Abdomen soft, non-tender, nondistended. No hepato-splenomegaly , or palpable masses. No guarding. MUSCULOSKELETAL: Extremities without clubbing, cyanosis, or edema. No joint tenderness, effusion, or edema noted. No calf tenderness. Negative Homans sign bilaterally. NEUROLOGICAL: Awake and alert. Cranial nerves II through XII intact. Motor and sensory grossly within normal limits. Five out of 5 muscle strength in all muscle groups. Normal speech. 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 Presented to the emergency room with complaint of back pain, had MRI done as outpatient showing osteomyelitis and discitis at L1 level. Thoracic epidural abscess -Neurosurgery has been consulted, Dr. Comer input appreciated -S/P CT guided Biopsies of the L1/L2 disc space 10/29 -Continue with empiric antibiotics, Vanco and Ancef -BC 1/2 + GPC, sens pending -Appreciate ID input, recommends US AVF to check for thrombus ESRD on HD -Nephrology consult -HD per schedule -pt. was pursuing renal transplant however because of infection he will be removed from list HTN, stable -Continue Clonidine 0.1 mg by mouth every 6 when necessary for systolic greater than 160 and diastolic greater than 90 Diet controlled diabetes -Accuchecks with low dose ISS Anemia, secondary to chronic kidney disease Monitor CBC closely, hemoglobin 8.8, noted with drop since last admission when he was 12. Murmur, stable Continue to monitor SCDs for DVT prophylaxis Cont to follow cultures OOB to ambulate, PT eval Add Restoril PRN Miralax daily D/W RN D/W Dr. Chang D/W pt This patient was seen by myself and Dr. Chang, this note is written on his behalf. Problem Qualifiers (1) Discitis: Qualified Code: M46.46 - Discitis of lumbar region (2) Diabetes: Qualified Code: E11.22 - Type 2 diabetes mellitus with chronic kidney disease on chronic dialysis, unspecified buttermaker helper insulin use status (3) Anemia: Latrice Wilson Oct 30, 2016 16:33
[2016-10-30] MEDS: CINACALCET HYDROCHLORIDE 30 MG TAB PO SCH ×2 (17:07→17:09)
[2016-10-30 20:00] VITALS: BP 117/67; PULSE 92; RESP 22; TEMP 96.9; O2SAT 94
[2016-10-30] MEDS: MAGNESIUM HYDROXIDE SUSP 30 ML CUP PO PRN (22:53)
[2016-10-30] MEDS: TEMAZEPAM 15 MG CAP PO PRN (22:59)
[2016-10-31] MEDS: INSULIN ASPART SUPPLEMENTAL SCALE SQ SCH ×4 (06:38→21:00)
[2016-10-31] MEDS: DOCUSATE SODIUM 100 MG CAP PO SCH ×2 (08:14→22:12)
[2016-10-31] MEDS: POLYETHYLENE GLYCOL 17 GM PKG PO SCH (08:14)
[2016-10-31] MEDS: SEVELAMER CARBONATE 800 MG TAB PO SCH ×4 (08:14→17:04)
[2016-10-31] MEDS: VITAMIN B CMPLX/VITC/FOLIC AC CAP PO SCH (08:14)
[2016-10-31] MEDS: CALCITRIOL 0.25 MCG CAP PO SCH (08:15)
[2016-10-31 08:16] VITALS: BP 137/77; PULSE 84; RESP 16; TEMP 96.9; O2SAT 98
[2016-10-31 10:30] VITALS: O2SAT 98
--- NOTE | 2016-10-31 11:54 | RADRPT ---
EXAM DATE/TIME: 10/31/2016 10:15 [facility] COMPARISON: No previous studies available for comparison. INDICATIONS : Abscess. Epidural abscess. MEDICAL HISTORY : Hypertension. Renal failure. SURGICAL HISTORY : Inguinal hernia repair. Left wrist and rotator cuff. ENCOUNTER: Initial ACUITY: 1 day PAIN SCORE: 6/10 LOCATION: Back. TECHNIQUE: Multiplanar multisequence MRI of the thoracic spine was performed. FINDINGS: Alignment: Thoracic vertebral body alignment is well maintained. Osseous structures and facet joints: T2 hyperintensity consistent with bone marrow edema is identified in the T3 and T4 vertebral bodies. The T3-4 disc is hyperintense as well. Mild edema is identified extending into the pedicles of both T 3 and T4. Anterior and left anterolateral epidural fluid collection is identified extending from mid T3-T7. Imm ediately superior to the T3-4 disc the anterior collection is bilobed in appearance with 2 discrete a nterior epidural collections measuring approximate 5 mm each. The collection below the disc level is predominantly in the anterior epidural space to approximately the T5 level. The fluid then extends la terally to the left at T6 and T7. Thoracic vertebral bodies otherwise demonstrate normal signal intensity with no other edematous or de structive changes. Intervertebral disc spaces: The T3-4 disc demonstrates decreasing delineation of the endplates and increased signal intensity in T2-weighted images within the disc. Bone marrow edematous changes are noted as described above. Small central disc protrusion is identified at T6-7. Degenerative disc disease with small posterior disc osteophyte complexes are noted at T7-8 T8-9 T9-10 and T11-12 causing mild epidural effacement but no evidence of spinal cord compression. Destructive endplate changes with hyperintensity in the disc and significant bone marrow edema is enedina ntified at the L1-2 level. Neurologic structures: Mild anterior effacement of the spinal cord is noted at the T3-4 level from the anterior epidural flu id collection. There is no evidence of significant cord compression. CONCLUSION: T3-T4 inflammatory disc disease consistent with discitis. Epidural abscess extending from T3-T7 as described. No significant cord compression is noted. Degenerative disc disease with disc osteophyte complexes causing mild anterior epidural effacement bu t no significant cord compression. Destructive disc process at L1 to characteristic of discitis and osteomyelitis. Magan Black MD on October 31, 2016 at 11:20 Board Certified Radiologist. This report was verified electronically.
--- NOTE | 2016-10-31 12:00 | RADRPT ---
EXAM DATE/TIME: 10/31/2016 10:15 [facility] COMPARISON: No previous studies available for comparison. INDICATIONS : Abscess. Epidural abscess. MEDICAL HISTORY : Hypertension. Renal failure. SURGICAL HISTORY : Inguinal hernia repair. Left wrist and rotator cuff. ENCOUNTER: Initial ACUITY: 1 day PAIN SCORE: 6/10 LOCATION: Back. TECHNIQUE: Multiplanar, multisequence MRI examination of the cervical spine was performed. FINDINGS: Alignment: Craniocervical and cervical vertebral body alignment are well-maintained. Osseous structures and facet joints: Cervical vertebral bodies and a straight normal height and signal intensity. There is no evidence of bone marrow edema, compression deformity or destructive changes. Inflammatory process is again noted involving the T3 vertebral body with diffuse bone marrow edema. Mild to moderate facet arthropathy is seen throughout the cervical spine slightly worse on the left. Epidural fluid collection described on MRI of the thoracic spine extends just above the T2-3 disc int erspace. There is no extension into the cervical spine. Intervertebral disc spaces: Degenerative disc changes ranging from mild to moderately severe noted. There is disc space narrowing with mild marginal spondylosis in C2-3, C3-4 C4-5. There is no signific ant disc herniation. Moderate degenerative disease is noted at C5-6 and C6-7. There is significant disc space narrowing, m ild endplate reactive changes and posterior disc osteophyte complex. There is no significant epidural mass effect. Small left paracentral disc protrusion identified at C7 T1 without significant mass effect. Neurologic structures: Spinal cord is normal in caliber and signal intensity. There is no significant compression in the cer vical spine. Mild abutment anterior effacement of the spinal cord is identified at the T3 level secondary to anter ior epidural fluid collection. CONCLUSION: Degenerative disc disease of the cervical spine without evidence of inflammatory dest ructive disc or vertebral body changes. Bone marrow edema in the T3 vertebral body secondary to the patient's suspected discitis. No evidence of acute disc herniation or focal spinal cord abnormalities. Magan Black MD on October 31, 2016 at 11:52 Board Certified Radiologist. This report was verified electronically.
[2016-10-31] MEDS: ceFAZolin 2 GM PREMIX 50 ML IV SCH (12:11)
[2016-10-31 13:06] VITALS: BP 136/77; PULSE 105; RESP 18; TEMP 97.1; O2SAT 96
--- NOTE | 2016-10-31 13:38 | HHI.IDPN ---
Subjective Subjective Remarks 71 Y/O with ESRD on HD, previous hx GBS bacteremia, L1 discitis 2014, MSSA bacteremia treated 2015, LEONARD negative; admitted with back pain, has been on IV Vancomycin since middle or end of September, admitted due to abnormal MRI done as outpatient Notes reviewed Temps 99+ One BC with Staph aureus MRI with T3-T4 discitis, epidural abscess T3-T7, L1 discitis/osteo D/W Dr Comer Aspirate L1-L2 negative so far; cytology pending ESR >140 CRP 5.86 Antibiotics Vanco with HD Ancef Lines PIV Past Medical History Hypertension Diabetes ESRD, on hemodialysis Pneumonia Osteoarthritis Hyperlipidemia Strep sepsis last March 2015 Discitis treated last March 2015 Right shoulder septic joint, had surgery, and treated last March 2015 Past Surgical History ORIF left wrist Umbilical hernia repair Left forearm AV fistula Surgery on the right shoulder Allergies: Coded Allergies: *MDRO Multi-Drug Resistant Organism (Verified Adverse Reaction, Unknown, 03/19/16) MRSA PCR screen POSITIVE - 03/13/16 Objective . Vital Signs Date Time Temp Pulse Resp B/P Pulse Ox O2 Delivery O2 Flow Rate FiO2 10/31/16 13:06 97.1 105 18 136/77 96 10/31/16 10:30 98 21 10/31/16 08:16 96.9 84 16 137/77 98 10/31/16 04:00 10/30/16 20:00 96.9 92 22 117/67 94 10/30/16 16:00 99.2 91 18 119/76 97 10/30/16 10/30/16 10/31/16 15:00 23:00 07:00 Intake Total 420 ml 50 ml Output Total 3000 ml Balance -2580 ml 50 ml Intake Oral 420 ml IV Total 50 ml Output Hemodialysis 3000 ml # Voids 0 . Laboratory Tests Test 10/30/16 15:35 Erythrocyte Sedimentation Rate GREATER THAN 140 mm/hr Laboratory Tests Test 10/30/16 10/30/16 07:44 15:35 Sodium Level 135 MEQ/L Potassium Level 4.2 MEQ/L Chloride Level 96 MEQ/L Carbon Dioxide Level 23.0 MEQ/L Anion Gap 16 MEQ/L Blood Urea Nitrogen 49 MG/DL Creatinine 12.53 MG/DL Estimat Glomerular Filtration 4 ML/MIN Rate Random Glucose 92 MG/DL Calcium Level 10.1 MG/DL C-Reactive Protein 5.86 MG/DL Microbiology Date/Time Procedure Status Source Growth 10/29/16 12:10 Aerobic Blood Culture - Preliminary Resulted Blood Peripheral NO GROWTH IN 2 DAYS 10/29/16 12:10 Anaerobic Blood Culture - Preliminary Resulted Staphylococcus Aureus 10/29/16 12:15 Aerobic Blood Culture - Preliminary Resulted Blood Peripheral NO GROWTH IN 2 DAYS 10/29/16 12:15 Anaerobic Blood Culture - Preliminary Resulted Blood Peripheral NO GROWTH IN 2 DAYS 10/29/16 17:32 Gram Stain - Final Resulted Fluid Other 10/29/16 17:32 Body Fluid Culture Resulted Fluid Other Pending 10/29/16 17:32 Acid Fast Stain - Final Resulted Fluid Other NO ACID FAST BACILLI SEEN 10/29/16 17:32 Mycobacterial Culture Resulted Fluid Other Pending 10/29/16 17:32 Fungal Smear - Final Resulted Fluid Other NO FUNGAL ELEMENTS SEEN. 10/29/16 17:32 Fungal Culture Resulted Fluid Other Pending 10/30/16 15:30 Aerobic Blood Culture - Preliminary Resulted Blood Peripheral NO GROWTH IN 1 DAY 10/30/16 15:30 Anaerobic Blood Culture - Preliminary Resulted Blood Peripheral NO GROWTH IN 1 DAY 10/30/16 15:35 Aerobic Blood Culture - Preliminary Resulted Blood Peripheral NO GROWTH IN 1 DAY 10/30/16 15:35 Anaerobic Blood Culture - Preliminary Resulted Blood Peripheral NO GROWTH IN 1 DAY Imaging Last Impressions Thoracic Spine MRI 10/31/16 0000 Signed Impressions: Service Date/Time: October 10:15 - CONCLUSION: T3-T4 inflammatory disc disease consistent with discitis. Epidural abscess extending from T3-T7 as described. No significant cord compression is noted. Degenerative disc disease with disc osteophyte complexes causing mild anterior epidural effacement but no significant cord compression. Destructive disc process at L1 to characteristic of discitis and osteomyelitis. Magan Black MD Cervical Spine MRI 10/31/16 0000 Signed Impressions: Service Date/Time: October 10:15 - CONCLUSION: Degenerative disc disease of the cervical spine without evidence of inflammatory destructive disc or vertebral body changes. Bone marrow edema in the T3 vertebral body secondary to the patient's suspected discitis. No evidence of acute disc herniation or focal spinal cord abnormalities. Magan Black MD Physical Exam GENERAL: awake and alert, not in respiratory distress. SKIN: Warm and dry. No generalized rash, no ecchymoses and no evidence of embolic lesions. HEAD: Atraumatic. Normocephalic. No temporal wasting, or tenderness. EYES: Laureles conjunctiva. No petechia or hemorrhage. Pupils equal, round and reactive to light. Extraocular movements full and intact. No scleral icterus. No injection or drainage. EARS, NOSE AND THROAT: Nose without bleeding or purulent nasal discharge. No sinus tenderness. Mucous membranes pink and moist. No oral lesions noted. No exudate. No oral thrush. NECK: Trachea midline. Supple and not tender, no meningeal signs CARDIOVASCULAR: Regular rate and rhythm. No murmurs, rubs or gallops heard RESPIRATORY: Clear to auscultation. Breath sounds equal bilaterally. No rales , wheezing or rhonchi ABDOMEN: Soft, non-tender, nondistended. Bowel sounds present and normoactive. No guarding. No rebound. No organomegaly. EXTREMITIES: No clubbing, cyanosis, or edema. No joint effusion, has good ROM. No calf tenderness. Well perfused and warm. AVF looks ok NEUROLOGICAL: Awake and alert. Cranial nerves grossly intact. Motor grossly within normal limits. PSYCHIATRIC: Normal affect, calm and cooperative. LINE: No evidence of infection Assessment & Plan Remarks IMPRESSION Discitis spine, L1 - previous Rx for T12-L1 discitis 2014, had BC with GBS - ?recurrent infection - ?new infection from seeding of his MSSA bacteremia that was Rx 2016 (LEONARD negative) - his BC has GPC in pairs and clusters New T3-T4 discitis and epidural abscess T3-T7 ESRD Patient on transplant list RECOMMENDATION Follow C/S and path report D/W Dr Comer - to sample new fluid collection Continue Vanco Continue Ancef for MSSA coverage Monitor progress US AVF to check for thrombus Will determine course of Rx once work-up completed Explained plan to the patient D/W Dr Comer D/W Angela Clements MD Oct 31, 2016 13:38
[2016-10-31] MEDS ORDERED: LIDOCAINE HCL 1% 20 ML VIAL ONE (14:22)
--- NOTE | 2016-10-31 14:26 | HHI.NPPN ---
Subjective History of Present Illness Hx back pain MRI T spine Epidural spine MRI L spine Discitis Review of Systems General Constitutional: Fatigue Objective Data Data 10/30/16 10/31/16 19:00 07:00 Intake Total 470 ml Output Total 3000 ml Balance -2530 ml Intake Oral 420 ml IV Total 50 ml Output Hemodialysis 3000 ml # Voids 0 Vital Signs Date Time Temp Pulse Resp B/P Pulse Ox O2 Delivery O2 Flow Rate FiO2 10/31/16 13:06 97.1 105 18 136/77 96 10/31/16 10:30 98 21 10/31/16 08:16 96.9 84 16 137/77 98 10/31/16 04:00 10/30/16 20:00 96.9 92 22 117/67 94 10/30/16 16:00 99.2 91 18 119/76 97 -: 10/29/16 1210 10/30/16 0744 Microbiology 10/30/16 Aerobic Blood Culture - Preliminary, Resulted NO GROWTH IN 1 DAY 10/30/16 Anaerobic Blood Culture - Preliminary, Resulted NO GROWTH IN 1 DAY 10/30/16 Aerobic Blood Culture - Preliminary, Resulted NO GROWTH IN 1 DAY 10/30/16 Anaerobic Blood Culture - Preliminary, Resulted NO GROWTH IN 1 DAY Physical Exam General Appearance: Well Developed, Well Nourished Eyes Eye Exam: Pupils Equal Neck Neck Exam: Neck Supple Pulmonary Resp Exam: Clear Bilaterally, Breath Sounds Equal Cardiology CV Exam: Regular, Normal Sinus Rhythm Gastrointestinal/Abdomen GI Exam: Soft, Non-Tender, Bowel Sounds Present Extremeties Extremities Exam: No Edema Assessment/Plan Problem List: (1) ESRD (end stage renal disease) on dialysis Plan: hemodialysis 3 times a week while he is in the hospital he has T spine Epidural Abscess, T3 discitis, L discitis osteo Staph Aureus in blood on Ancef and Vancomycin continue supportive care (2) Osteomyelitis of lumbar spine Plan: On vancomycin/Ancef and this will continue with dialysis (3) Abscess in epidural space of thoracic spine Plan: Patient is followed by neurosurgery Araceli Freire MD Oct 31, 2016 14:26
--- NOTE | 2016-10-31 14:33 | RADRPT ---
EXAM DATE/TIME: 10/31/2016 08:16 [facility] COMPARISON: US ARM LEFT HEMODIALYSIS DOPPLER, March 15, 2016, 21:44. INDICATIONS : Arm swelling. MEDICAL HISTORY : Hypercholesterolemia. Hypertension. Cardiac disorders. Sleep apnea. Umbilcal hernia. Renal failure. Dialysis. Back pain. Joint pain. Diabetes. Anemia. SURGICAL HISTORY : Umbilical hernia repair. Rotator cuff repair. Orif left wrist. Left arm dialysis shunt. ENCOUNTER: Initial ACUITY: > 1 year PAIN SCORE: 0/10 LOCATION: Left arm. AREA EVALUATED: Left forearm fistula. FINDINGS: The exam demonstrates a left arm AV fistula. No abscess or other significant abnormality is seen. The fistula is patent. CONCLUSION: 1. Left arm dialysis fistula. Exam is otherwise unremarkable. Alexys Nicolas MD on October 31, 2016 at 14:30 Board Certified Radiologist. This report was verified electronically.
[2016-10-31] MEDS ORDERED: MIDAZOLAM HCL 5 MG/5 ML VIAL ONE (15:04)
[2016-10-31] MEDS ORDERED: fentaNYL CITRATE 250 MCG/5 ML AMP ONE (15:04)
--- NOTE | 2016-10-31 16:08 | PD.RAD ---
Post CT Procedure Prog Note Pre Procedure Diagnosis: (1) Discitis (2) Bacteremia Post Procedure Diagnosis: (1) Discitis (2) Bacteremia Procedure Date: Oct 31, 2016 Supervising Radiologist: Magan Black Proceduralist/Assist: Saeid Ward RT(R)(CT) Anesthesia: Local, Conscious Sedation Plan of Activity Patient to Unit: Critical Care Patient Condition: Good See PACS Report for procedural detail/treatment Biopsy Imaging Guidance: CT Side: Right Biopsy Procedure: Soft Tissue, Spine Specimen: Core Biopsy Fluid Description: White Plan Gram stain, cytology and C&S Magan Black MD Oct 31, 2016 16:08
[2016-10-31 16:20] VITALS: BP 123/77; PULSE 89; RESP 20; TEMP 98.3; O2SAT 96
[2016-10-31 16:35] VITALS: BP 123/75; PULSE 89; RESP 18; O2SAT 95
[2016-10-31] MEDS: CINACALCET HYDROCHLORIDE 30 MG TAB PO SCH (17:05)
--- NOTE | 2016-10-31 17:08 | RADRPT ---
EXAM DATE/TIME: 10/29/2016 17:44 [facility] COMPARISON: No previous studies available for comparison. INDICATIONS : Patient with osteomyelitis of L1-L2 in need of Disc aspiration. MEDICAL HISTORY : 1.Anemia 2.CHF 3.DM 4.Renal disease 5.GERD 6. SURGICAL HISTORY : 1.Umbilical hernia 2.Left arm dialysis shunt ENCOUNTER: Initial ACUITY: 2 weeks PAIN SCORE: 0/10 FLUORO TIME: 5.7 minutes IMAGE SERIES: 0 SEDATION TIME: 30 minutes MEDICATION(S): 1.) 3 mcg fentanyl (Sublimaze) IV 2.) 150 mg midazolam (Versed) IV DEVICE(S): 1.) 22 gauge Chiba needle Core specimen(s) was obtained and submitted to laboratory for pathologic evaluation. PROCEDURE : 1. Fluoroscopically guided needle biopsy. 2. Conscious sedation with continuous EKG and Oximetry monitoring. Clinical history: The patient is a dialysis patient who developed back pain [place]. The patient was undergoi ng dialysis and has been treated on multiple occasions with vancomycin. He states that since having t he course of vancomycin and vancomycin giving during the dialysis his back pain has subsided. The pat ient underwent MRI imaging demonstrating extensive changes at the L1-2 disc space concerning for disc itis. The risks, benefits and alternatives to the procedure were explained and verbal and written consent w as obtained. The site was prepped in sterile fashion. Full sterile technique was used, including cap, mask, steri le gloves and gown and a large sterile sheet. Hand hygiene and 2% chlorhexidine and/or betadine/alco hol prep was utilized per protocol for cutaneous antisepsis. The skin and subcutaneous tissues were infiltrated with local anesthetic solution. A 22 gauge Chiba needle was advanced through the skin into the L1/L2 disc space. A total of 3 aspirat ion biopsies of the disc were performed. These were placed in sterile saline and sent to pathology. Conscious sedation was performed with the prescribed dosages and duration as above in the presence of an independent trained radiology nurse to assist in the monitoring of the patient. EKG and oximetry remained stable throughout the procedure. CONCLUSION: Uncomplicated needle biopsy of the L1/L2 disc space as above. Alexys Nicolas MD on October 31, 2016 at 17:05 Board Certified Radiologist. This report was verified electronically.
--- NOTE | 2016-10-31 17:16 | HHI.PR ---
Subjective Remarks Went for biopsy of thoracic spine, tolerated well Slept very well last night Some back pain Ambulatory No chest pain No shortness of breath Afebrile (Latrice Wilson) Objective Objective Results - Vital Signs Date Time Temp Pulse Resp B/P Pulse Ox O2 Delivery O2 Flow Rate FiO2 10/31/16 16:35 89 18 123/75 95 10/31/16 16:20 98.3 89 20 123/77 96 10/31/16 13:06 97.1 105 18 136/77 96 10/31/16 10:30 98 21 10/31/16 08:16 96.9 84 16 137/77 98 10/31/16 04:00 10/30/16 20:00 96.9 92 22 117/67 94 I/O 10/30/16 10/30/16 10/30/16 10/31/16 10/31/16 10/31/16 07:00 15:00 23:00 07:00 15:00 23:00 Intake Total 240 ml 420 ml 50 ml 240 ml Output Total 3000 ml Balance 240 ml -2580 ml 50 ml 240 ml Intake Oral 240 ml 420 ml 240 ml IV Total 50 ml Output Hemodialysis 3000 ml # Voids 1 0 3 # Bowel Movements 0 (Latrice Wilson) Result Diagram: 10/29/16 1210 10/30/16 0744 Other Results Date/Time Procedure Status Source Growth 10/31/16 15:50 Gram Stain Received Abscess Back Pending 10/31/16 15:50 Wound Culture Received Abscess Back Pending 10/30/16 15:35 Aerobic Blood Culture - Preliminary Resulted Blood Peripheral NO GROWTH IN 1 DAY 10/30/16 15:35 Anaerobic Blood Culture - Preliminary Resulted Blood Peripheral NO GROWTH IN 1 DAY 10/29/16 17:32 Gram Stain - Final Resulted Fluid Other 10/29/16 17:32 Body Fluid Culture - Preliminary Resulted Fluid Other NO GROWTH IN 24 HOURS. 10/29/16 17:32 Fungal Smear - Final Resulted Fluid Other NO FUNGAL ELEMENTS SEEN. 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 SKIN: No rashes, ecchymoses or lesions. Cool and dry. HEAD: Atraumatic. Normocephalic. No temporal or scalp tenderness. EYES: Pupils equal round and reactive. Extraocular motions intact. No scleral icterus. No injection or drainage. ENT: Nose without bleeding, purulent drainage or septal hematoma. Throat without erythema, tonsillar hypertrophy or exudate. Uvula midline. Airway patent. NECK: Trachea midline. No JVD or lymphadenopathy. Supple, nontender, no meningeal signs. CARDIOVASCULAR: Regular rate and rhythm without murmurs, gallops, or rubs. RESPIRATORY: Clear to auscultation. Breath sounds equal bilaterally. No wheezes , rales, or rhonchi. GASTROINTESTINAL: Abdomen soft, non-tender, nondistended. No hepato-splenomegaly , or palpable masses. No guarding. MUSCULOSKELETAL: Extremities without clubbing, cyanosis, or edema. No joint tenderness, effusion, or edema noted. No calf tenderness. Negative Homans sign bilaterally. NEUROLOGICAL: Awake and alert. Cranial nerves II through XII intact. Motor and sensory grossly within normal limits. Five out of 5 muscle strength in all muscle groups. Normal speech. (Latrice Wilson HYBRID DERIVATIVES TRADER) Urinary Catheter: No (Latrice Wilson. HYBRID DERIVATIVES TRADER) Vascular Central Line Catheter: No (Latrice Wilson. HYBRID DERIVATIVES TRADER) A/P Diagnosis: (1) Abscess in epidural space of thoracic spine (2) Osteomyelitis of lumbar spine (3) Discitis (4) Murmur, cardiac (5) Diabetes (6) Anemia (7) ESRD (end stage renal disease) on dialysis Assessment and Plan 71-year-old male patient with history of MSSA bacteremia, strep sepsis and discitis and septic right shoulder. Presented to the emergency room with complaint of back pain, had MRI done as outpatient showing osteomyelitis and discitis at L1 level. Thoracic epidural abscess -Neurosurgery has been consulted, Dr. Comer input appreciated -S/P CT guided Biopsies of the L1/L2 disc space 10/29 -Continue with empiric antibiotics, Vanco and Ancef -BC 1/2 positive for staph aureus, sens pending -Appreciate ID input, recommends US AVF negative for thrombus -Thoracic spine MRI done, inflammatory disc disease consistent with discitis, epidural abscess extending from T3 -T7. No cord compression. -Went to IR for CT-guided biopsy of thoracic epidural abscess 10/31 -Neurosurgery does not recommend surgery at this time. -Continue to follow cultures ESRD on HD -Nephrology consult -HD per schedule -pt. was pursuing renal transplant however because of infection he will be removed from list HTN, stable -Continue Clonidine 0.1 mg by mouth every 6 when necessary for systolic greater than 160 and diastolic greater than 90 Diet controlled diabetes -Accuchecks with low dose ISS Anemia, secondary to chronic kidney disease Monitor CBC closely, hemoglobin 8.8, noted with drop since last admission when he was 12. Murmur, stable Continue to monitor SCDs for DVT prophylaxis OOB to ambulate, PT eval Cont to follow cultures Discharge planning, likely to go home with antibiotics as outpatient. D/W RN D/W Dr. Chang D/W pt This patient was seen by myself and Dr. Chang, this note is written on his behalf. 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
--- NOTE | 2016-10-31 17:53 | HHI.NSPN ---
(Meghan Stiles) Note Status Status: Progress Note (Meghan Stiles) Interval History Interval History This is a 71-year-old male patient with history of end-stage renal disease, on chronic dialysis treatment, following up with Dr. Freire. He presents to the ER today sent by Dr. Freire for osteomyelitis of the spine. He had not been feeling well and had low-grade fevers and back pains for the last few weeks, had been on vancomycin for the past month, and had an MRI done several days ago which shows osteomyelitis and discitis at the L1. He denies any recent fevers but is still having some lower back pains. He denies any other symptoms. 10/31: reports of low back pain, MRI C, T spine w/o contrast (Meghan Stiles) Labs, Micro, & Vital Signs Results Date Time Temp Pulse Resp B/P Pulse Ox O2 Delivery O2 Flow Rate FiO2 10/31/16 16:35 89 18 123/75 95 10/31/16 16:20 98.3 89 20 123/77 96 10/31/16 13:06 97.1 105 18 136/77 96 10/31/16 10:30 98 21 10/31/16 08:16 96.9 84 16 137/77 98 10/31/16 04:00 10/30/16 20:00 96.9 92 22 117/67 94 10/31/16 07:00 Intake Total 470 ml Output Total 3000 ml Balance -2530 ml Constitutional Vital Signs Date Time Temp Pulse Resp B/P Pulse Ox O2 Delivery O2 Flow Rate FiO2 10/31/16 16:35 89 18 123/75 95 10/31/16 16:20 98.3 89 20 123/77 96 10/31/16 13:06 97.1 105 18 136/77 96 10/31/16 10:30 98 21 10/31/16 08:16 96.9 84 16 137/77 98 10/31/16 04:00 10/30/16 20:00 96.9 92 22 117/67 94 10/31/16 07:00 Intake Total 470 ml Output Total 3000 ml Balance -2530 ml (Meghan Stiles) Review of Systems/Exam Exam Mr. Conrad is alert, awake and oriented to time, place and person. Speech is fluent. Cranial nerve examination demonstrates the pupils to be equal, round, and reactive to light. Extra-ocular movements are intact. Facial motor and sensory function are normal and symmetrical. Neck is soft and supple. Muscle strength is 5/5 in all muscle groups of both upper extremities including deltoid, biceps, triceps, brachioradialis, wrist extension and fsr. In the lower extremities, strength is 5/5 in both iliopsoas, quadriceps, hamstrings, plantar flexion, dorsiflexion, and extensor hallicus longus. Sensory examination is intact to light touch in both the upper and lower extremities, symmetrically. Bilateral plantar flexion response. Hoffmanns sign is negative. There is no clonus or other abnormal reflexes noted. Cerebellar examination is intact to [id number] test (Meghan Stiles) Medications Current Medications Current Medications Medications (Trade) Dose Ordered Sig/Zenobia Route PRN Reason Start Time Stop Time Status Last Admin Dose Admin Vitamin B Complex/ Vit C/Folic Acid (Nephrocaps) 1 cap DAILY PO 10/30/16 09:00 10/31/16 08:14 Calcitriol (Rocaltrol) 0.5 mcg DAILY PO 10/30/16 09:00 10/31/16 08:15 Docusate Sodium (Colace) 100 mg BID PO 10/29/16 21:00 10/31/16 08:14 Sevelamer Carbonate (Renvela) 3,200 mg TID PO 10/29/16 18:00 10/31/16 12:11 Cinacalcet (Sensipar) 60 mg DAILY@1600 PO 10/29/16 16:00 10/31/16 17:05 Morphine Sulfate (Morphine Inj) 4 mg Q4H PRN IV PUSH PAIN 5 TO 10 10/29/16 16:00 Acetaminophen (Tylenol) 650 mg Q4H PRN PO Temp > 100.4 10/29/16 17:30 Ondansetron HCl (Zofran Inj) 4 mg Q6H PRN IV NAUSEA 10/29/16 17:30 Magnesium Hydroxide (Milk Of Magnesia Liq) 30 ml DAILY PRN PO for Severe Constipation 10/29/16 17:30 10/30/16 22:53 Al Hydrox/Mg Hydrox/Simethicone (Mag-Al Plus Susp Liq) 30 ml Q6H PRN PO DYSPEPSIA 10/29/16 17:30 Dextrose (D50w (Vial) Inj) 50 ml UNSCH PRN IV HYPOGLYCEMIA-SEE COMMENTS 10/29/16 19:15 Glucagon (Glucagon Inj) 1 mg UNSCH PRN OTHER HYPOGLYCEMIA-SEE COMMENTS 10/29/16 19:15 Clonidine 0.1 mg 0.1 mg Q6H PRN PO SBP>160, DBP>90 10/29/16 19:30 Sodium Chloride (NS 1000 ml Inj) 1,000 ml @ 0 mls/hr Q0M PRN IV For Prime & Rinse Back 10/29/16 19:43 Heparin Sodium (Porcine) 8000 units 8,000 units UNSCH PRN IVF WITH DIALYSIS 10/29/16 19:45 Sodium Chloride 1,000 ml @ 200 mls/hr Q5H PRN IV WITH DIALYSIS 10/29/16 19:43 Sodium Chloride (NS 1000 ml Inj) 1,000 ml @ 0 mls/hr Q0M PRN IV WITH DIALYSIS 10/29/16 19:43 Mannitol (Mannitol Inj) 12.5 gm UNSCH PRN IV WITH DIALYSIS 10/29/16 19:45 Albumin Human (Albumin 25% Inj) 25 gm UNSCH PRN IV WITH DIALYSIS 10/29/16 19:45 Sodium Chloride (NS Flush) 5 ml UNSCH PRN IV FLUSH WITH DIALYSIS 10/29/16 19:45 Ondansetron HCl (Zofran Inj) 4 mg UNSCH PRN IV WITH DIALYSIS 10/29/16 19:45 Acetaminophen (Tylenol) 650 mg UNSCH PRN PO for headach, pain, temp > 101F 10/29/16 19:45 Diphenhydramine HCl (Benadryl) 25 mg UNSCH PRN PO for hives/itching/anaphylaxis 10/29/16 19:45 Nitroglycerin (Nitrostat Sl) 0.4 mg UNSCH PRN SL CHEST PAIN 10/29/16 19:45 Clonidine (Catapres) 0.1 mg UNSCH PRN PO for BP > 180/100 X 2 readings 10/29/16 19:45 Epoetin Aidan (Epogen Inj) 10,000 units UNSCH PRN IV WITH DIALYSIS 10/29/16 19:45 10/30/16 11:19 Gelatin 1 foam 1 foam UNSCH PRN TOP SEE LABEL COMMENTS 10/29/16 19:45 Cefazolin Sodium/ Dextrose (Ancef 2 Gm Premix) 50 ml @ 100 mls/hr Q24H IV 10/30/16 14:00 10/31/16 12:11 Polyethylene Glycol (Miralax) 17 gm DAILY PO 10/31/16 09:00 10/31/16 08:14 Temazepam (Restoril) 30 mg HS PRN PO INSOMNIA 10/30/16 19:00 10/30/16 22:59 (Meghan Stiles) Medical Decision Making MDM Remarks 71 y/o male with lumbar discitis, osteomyelitis, possible thoracic epidural abscess (Meghan Stiles) Plan Plan Remarks MRIs reviewed by Dr. Comer, recommends CT guided biopsy of epidural fluid collection at T3-4, f/u cultures, cont abx per ID (Meghan Stiles) Attending Statement The exam, history, and the medical decision-making described in the above note were completed with the assistance of the mid-level provider. I reviewed and agree with the findings presented. I attest that I had a [id number] encounter with the patient on the same day, and personally performed and documented my assessment and findings in the medical record. (John Comer MD) Meghan Stiles Oct 31, 2016 17:53 John Comer MD Nov 01, 2016 16:27
[2016-10-31 20:00] VITALS: BP 126/72; PULSE 96; RESP 18; TEMP 97.9; O2SAT 98
[2016-10-31] MEDS: MAGNESIUM HYDROXIDE SUSP 30 ML CUP PO PRN (22:12)
[2016-10-31] MEDS: TEMAZEPAM 15 MG CAP PO PRN (22:12)
[2016-11-01] MEDS: INSULIN ASPART SUPPLEMENTAL SCALE SQ SCH ×4 (06:29→21:00)
[2016-11-01 08:13] VITALS: BP 122/68; PULSE 91; RESP 18; TEMP 96.2; O2SAT 96
--- NOTE | 2016-11-01 08:17 | RADRPT ---
EXAM DATE/TIME: 10/31/2016 15:07 [facility] COMPARISON: No previous studies available for comparison. INDICATIONS : Discitis. SEDATION TIME: 30 minutes BIOPSY SITE: T3-T4. MEDICATION(S): 1.) 5 mg midazolam (Versed) IV 2.) 250 mcg fentanyl (Sublimaze) IV DEVICE(S): 1.) 20 gauge Temno core biopsy needle MEDICAL HISTORY : Hernia, umbilical. Renal failure, chronic. Hypertension. Diabetes. SURGICAL HISTORY : Umbilical hernia repair. ENCOUNTER: Initial ACUITY: 1 day PAIN SCORE: 5/10 LOCATION: mid-back. A total of three core specimen(s) were obtained and sent to the laboratory for pathologic evaluation. PROCEDURE: 1. CT guided vertebral disc biopsy. 2. Conscious sedation with continuous EKG and oximetry monitoring. 3. EKG and oximetry remained stable throughout the procedure. Prior to the procedure informed consent was obtained. Any appropriate prior imaging studies were rev iewed. Using automated exposure control and adjustment of the mA and/or kV according to patient size, radiat ion dose was kept as low as reasonably achievable to obtain optimal diagnostic quality images. The site was prepped in a sterile fashion. Full sterile technique was used, including cap, mask, jeffrey rile gloves and gown and a large sterile sheet. Hand hygiene and 2% chlorhexidine and/or betadine/al cohol prep was utilized per protocol for cutaneous antisepsis. The skin and subcutaneous tissues wer e infiltrated with local anesthetic solution. With CT guidance the previously identified target was localized. Biopsy was performed using the presc ribed needle as above. Core biopsies were obtained of the right paraspinal soft tissue swelling adjac ent to the T3-4 disc interspace. A window for disc biopsy could not be identified. Adequate hemostasi s was obtained with compression at the puncture site. Follow-up CT scan reveals no hemorrhage. The patient tolerated the procedure well and there were no complications. The patient was returned to the Radiology Outpatient Unit in stable condition. CONCLUSION: Uncomplicated CT guided biopsy. Magan Black MD on November 01, 2016 at 8:15 Board Certified Radiologist. This report was verified electronically.
[2016-11-01] MEDS: POLYETHYLENE GLYCOL 17 GM PKG PO SCH (08:38)
[2016-11-01] MEDS: SEVELAMER CARBONATE 800 MG TAB PO SCH ×3 (08:38→17:04)
[2016-11-01] MEDS: DOCUSATE SODIUM 100 MG CAP PO SCH ×2 (08:38→22:28)
[2016-11-01] MEDS: CALCITRIOL 0.25 MCG CAP PO SCH (08:38)
[2016-11-01] MEDS: VITAMIN B CMPLX/VITC/FOLIC AC CAP PO SCH (08:38)
--- NOTE | 2016-11-01 09:55 | HHI.PR ---
Subjective Remarks no pain ambulating no cp no sob no fever thinks he's going home today, explained we need to wait for cultures. Verbalizes understanding Objective Objective Results - Vital Signs Date Time Temp Pulse Resp B/P Pulse Ox O2 Delivery O2 Flow Rate FiO2 11/01/16 08:13 96.2 91 18 122/68 96 10/31/16 20:00 97.9 96 18 126/72 98 10/31/16 16:35 89 18 123/75 95 10/31/16 16:20 98.3 89 20 123/77 96 10/31/16 13:06 97.1 105 18 136/77 96 10/31/16 10:30 98 21 I/O 10/31/16 10/31/16 10/31/16 11/01/16 11/01/16 11/01/16 07:00 15:00 23:00 07:00 15:00 23:00 Intake Total 240 ml Balance 240 ml Intake Oral 240 ml # Voids 3 1 # Bowel Movements 0 1 Result Diagram: 10/29/16 1210 10/30/16 0744 Other Results Date/Time Procedure Status Source Growth 10/31/16 15:50 Gram Stain - Final Resulted Abscess Back 10/31/16 15:50 Wound Culture Resulted Abscess Back Pending 10/30/16 15:35 Aerobic Blood Culture - Preliminary Resulted Blood Peripheral NO GROWTH IN 1 DAY 10/30/16 15:35 Anaerobic Blood Culture - Preliminary Resulted Blood Peripheral NO GROWTH IN 1 DAY 10/29/16 17:32 Fungal Smear - Final Resulted Fluid Other NO FUNGAL ELEMENTS SEEN. 10/29/16 17:32 Fungal Culture Resulted Fluid Other Pending 10/29/16 17:32 Acid Fast Stain - Final Resulted Fluid Other NO ACID FAST BACILLI SEEN 10/29/16 17:32 Mycobacterial Culture Resulted Fluid Other Pending ROS General: No: Fatigue, Weakness HEENT: No: Sore Throat, Dysphagia Cardiac: No: Chest Pain, Edema, Palpitations Pulmonary: No: Cough, SOB, Wheezing GI: No: Abdominal Pain, BM, Diarrhea, N/V /[employer] COUNSELOR: No: Dysuria, Urgency Neuro/MS: No: Lightheaded, Confusion Psych: No: Anxiety, Depression Skin: No: Itching, Rash Physical Exam Physical Exam GENERAL: This is a well-nourished, well-developed patient, in no apparent distress. SKIN: No rashes, ecchymoses or lesions. Cool and dry. HEAD: Atraumatic. Normocephalic. No temporal or scalp tenderness. EYES: Pupils equal round and reactive. Extraocular motions intact. No scleral icterus. No injection or drainage. ENT: Nose without bleeding, purulent drainage or septal hematoma. Throat without erythema, tonsillar hypertrophy or exudate. Uvula midline. Airway patent. NECK: Trachea midline. No JVD or lymphadenopathy. Supple, nontender, no meningeal signs. CARDIOVASCULAR: Regular rate and rhythm without murmurs, gallops, or rubs. RESPIRATORY: Clear to auscultation. Breath sounds equal bilaterally. No wheezes , rales, or rhonchi. GASTROINTESTINAL: Abdomen soft, non-tender, nondistended. No hepato-splenomegaly , or palpable masses. No guarding. MUSCULOSKELETAL: Extremities without clubbing, cyanosis, or edema. No joint tenderness, effusion, or edema noted. No calf tenderness. Negative Homans sign bilaterally. NEUROLOGICAL: Awake and alert. Cranial nerves II through XII intact. Motor and sensory grossly within normal limits. Five out of 5 muscle strength in all muscle groups. Normal speech. 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 Presented to the emergency room with complaint of back pain, had MRI done as outpatient showing osteomyelitis and discitis at L1 level. Thoracic epidural abscess -Neurosurgery has been consulted, Dr. Comer input appreciated -S/P CT guided Biopsies of the L1/L2 disc space 10/29 -Continue with empiric antibiotics, Vanco and Ancef -BC 1/2 positive for staph aureus, sens pending -Appreciate ID input, recommends US AVF negative for thrombus -Thoracic spine MRI done, inflammatory disc disease consistent with discitis, epidural abscess extending from T3 -T7. No cord compression. -Went to IR for CT-guided biopsy of thoracic epidural abscess 10/31 -Neurosurgery does not recommend surgery at this time. -Continue to follow cultures ESRD on HD -Nephrology consult -HD per schedule -pt. was pursuing renal transplant however because of infection he will be removed from list HTN, stable -Continue Clonidine 0.1 mg by mouth every 6 when necessary for systolic greater than 160 and diastolic greater than 90 Diet controlled diabetes -Accuchecks with low dose ISS Anemia, secondary to chronic kidney disease Monitor CBC closely, hemoglobin 8.8, noted with drop since last admission when he was 12. Murmur, stable Continue to monitor SCDs for DVT prophylaxis OOB to ambulate, PT eval Cont to follow cultures Discharge planning, likely to go home with antibiotics as outpatient. Labs in am D/W RN D/W Dr. Chang D/W pt This patient was seen by myself and Dr. Chang, this note is written on his behalf. 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
[2016-11-01 12:27] VITALS: BP 130/80; PULSE 90; RESP 18; TEMP 97; O2SAT 100
--- NOTE | 2016-11-01 13:01 | HHI.IDPN ---
Subjective Subjective Remarks 71 Y/O with ESRD on HD, previous hx GBS bacteremia, L1 discitis 2014, MSSA bacteremia treated 2015, LEONARD negative; admitted with back pain, has been on IV Vancomycin since middle or end of September, admitted due to abnormal MRI done as outpatient Notes reviewed Having HD Temps ok Had procedure at T3-T4 level G/S no organism C/S L1 - negative One BC with MRSA No new (+) BC MRI with T3-T4 discitis, epidural abscess T3-T7, L1 discitis/osteo D/W Dr Comer Aspirate L1-L2 negative so far; cytology pending ESR >140 CRP 5.86 US AVF - no thrombus D/W Dr Freire Patient had (+) BC from the dialysis center in [place] Antibiotics Vanco with HD Ancef Lines PIV Past Medical History Hypertension Diabetes ESRD, on hemodialysis Pneumonia Osteoarthritis Hyperlipidemia Strep sepsis last March 2015 Discitis treated last March 2015 Right shoulder septic joint, had surgery, and treated last March 2015 Past Surgical History ORIF left wrist Umbilical hernia repair Left forearm AV fistula Surgery on the right shoulder Allergies: Coded Allergies: *MDRO Multi-Drug Resistant Organism (Verified Adverse Reaction, Unknown, 03/19/16) MRSA PCR screen POSITIVE - 03/13/16 Objective . Vital Signs Date Time Temp Pulse Resp B/P Pulse Ox O2 Delivery O2 Flow Rate FiO2 11/01/16 12:27 97.0 90 18 130/80 100 11/01/16 08:13 96.2 91 18 122/68 96 10/31/16 20:00 97.9 96 18 126/72 98 10/31/16 16:35 89 18 123/75 95 10/31/16 16:20 98.3 89 20 123/77 96 10/31/16 13:06 97.1 105 18 136/77 96 10/31/16 10/31/16 11/01/16 15:00 23:00 07:00 Intake Total 240 ml Balance 240 ml Intake Oral 240 ml # Voids 3 1 # Bowel Movements 0 . Laboratory Tests Test 10/30/16 15:35 Erythrocyte Sedimentation Rate GREATER THAN 140 mm/hr Laboratory Tests Test 10/30/16 15:35 C-Reactive Protein 5.86 MG/DL Microbiology Date/Time Procedure Status Source Growth 10/29/16 17:32 Gram Stain - Final Resulted Fluid Other 10/29/16 17:32 Body Fluid Culture - Preliminary Resulted Fluid Other NO GROWTH IN 48 HOURS. 10/29/16 17:32 Acid Fast Stain - Final Resulted Fluid Other NO ACID FAST BACILLI SEEN 10/29/16 17:32 Mycobacterial Culture Resulted Fluid Other Pending 10/29/16 17:32 Fungal Smear - Final Resulted Fluid Other NO FUNGAL ELEMENTS SEEN. 10/29/16 17:32 Fungal Culture Resulted Fluid Other Pending 10/30/16 15:30 Aerobic Blood Culture - Preliminary Resulted Blood Peripheral NO GROWTH IN 2 DAYS 10/30/16 15:30 Anaerobic Blood Culture - Preliminary Resulted Blood Peripheral NO GROWTH IN 2 DAYS 10/30/16 15:35 Aerobic Blood Culture - Preliminary Resulted Blood Peripheral NO GROWTH IN 2 DAYS 10/30/16 15:35 Anaerobic Blood Culture - Preliminary Resulted Blood Peripheral NO GROWTH IN 2 DAYS 10/31/16 15:50 Gram Stain - Final Resulted Abscess Back 10/31/16 15:50 Wound Culture Resulted Abscess Back Pending Imaging Last Impressions Thoracic Spine MRI 10/31/16 0000 Signed Impressions: Service Date/Time: October 10:15 - CONCLUSION: T3-T4 inflammatory disc disease consistent with discitis. Epidural abscess extending from T3-T7 as described. No significant cord compression is noted. Degenerative disc disease with disc osteophyte complexes causing mild anterior epidural effacement but no significant cord compression. Destructive disc process at L1 to characteristic of discitis and osteomyelitis. Magan Black MD Cervical Spine MRI 10/31/16 0000 Signed Impressions: Service Date/Time: October 10:15 - CONCLUSION: Degenerative disc disease of the cervical spine without evidence of inflammatory destructive disc or vertebral body changes. Bone marrow edema in the T3 vertebral body secondary to the patient's suspected discitis. No evidence of acute disc herniation or focal spinal cord abnormalities. Magan Black MD Physical Exam GENERAL: awake and alert, not in respiratory distress. SKIN: Warm and dry. No generalized rash, no ecchymoses and no evidence of embolic lesions. HEAD: Atraumatic. Normocephalic. No temporal wasting, or tenderness. EYES: Diboll conjunctiva. No petechia or hemorrhage. Pupils equal, round and reactive to light. Extraocular movements full and intact. No scleral icterus. No injection or drainage. EARS, NOSE AND THROAT: Nose without bleeding or purulent nasal discharge. No sinus tenderness. Mucous membranes pink and moist. No oral lesions noted. No exudate. No oral thrush. NECK: Trachea midline. Supple and not tender, no meningeal signs CARDIOVASCULAR: Regular rate and rhythm. No murmurs, rubs or gallops heard RESPIRATORY: Clear to auscultation. Breath sounds equal bilaterally. No rales , wheezing or rhonchi ABDOMEN: Soft, non-tender, nondistended. Bowel sounds present and normoactive. No guarding. No rebound. No organomegaly. EXTREMITIES: No clubbing, cyanosis, or edema. No joint effusion, has good ROM. No calf tenderness. Well perfused and warm. AVF looks ok NEUROLOGICAL: Awake and alert. Cranial nerves grossly intact. Motor grossly within normal limits. PSYCHIATRIC: Normal affect, calm and cooperative. LINE: No evidence of infection Assessment & Plan Remarks IMPRESSION Discitis spine, L1 - previous Rx for T12-L1 discitis 2014, had BC with GBS - ?recurrent infection - ?new infection from seeding of his MSSA bacteremia that was Rx 2015 (LEONARD negative) - his BC has GPC in pairs and clusters New T3-T4 discitis and epidural abscess T3-T7 ESRD Patient on transplant list RECOMMENDATION Follow C/S and path report Continue Vanco - will check level and see if needs a higher dose - currently getting 1 gm with HD I spoke with micro and they will do an E-test for Vanco, since ANGELO is 2 D/C Ancef since BC with MRSA Add Rifampin (synergy vs Staph aureus) - follow LFT Monitor progress Will determine course of Rx once work-up completed Angela Farmer MD Nov 01, 2016 13:01
--- NOTE | 2016-11-01 13:35 | HHI.NPPN ---
Subjective History of Present Illness Hx back pain MRI T spine Epidural spine MRI L/T spine Discitis Review of Systems General Constitutional: Fatigue Objective Data Data 10/31/16 11/01/16 19:00 07:00 Intake Total 240 ml Balance 240 ml Intake Oral 240 ml # Voids 3 1 # Bowel Movements 0 Vital Signs Date Time Temp Pulse Resp B/P Pulse Ox O2 Delivery O2 Flow Rate FiO2 11/01/16 12:27 97.0 90 18 130/80 100 11/01/16 08:13 96.2 91 18 122/68 96 10/31/16 20:00 97.9 96 18 126/72 98 10/31/16 16:35 89 18 123/75 95 10/31/16 16:20 98.3 89 20 123/77 96 -: 10/29/16 1210 10/30/16 0744 Microbiology 10/31/16 Gram Stain - Final, Resulted 10/31/16 Wound Culture, Resulted Pending Physical Exam General Appearance: Well Developed, Well Nourished Eyes Eye Exam: Pupils Equal Neck Neck Exam: Neck Supple Pulmonary Resp Exam: Clear Bilaterally, Breath Sounds Equal Cardiology CV Exam: Regular, Normal Sinus Rhythm Gastrointestinal/Abdomen GI Exam: Soft, Non-Tender, Bowel Sounds Present Extremeties Extremities Exam: No Edema Assessment/Plan Problem List: (1) ESRD (end stage renal disease) on dialysis Plan: hemodialysis 3 times a week while he is in the hospital seen during dialysis 3 L planned he has T spine Epidural Abscess, T3 discitis, L discitis osteo Staph Aureus in blood on Ancef and Vancomycin continue supportive care ID to finalize the antibiotics T spine abscess needle aspiration culture pending (2) Osteomyelitis of lumbar spine Plan: On vancomycin/Ancef and this will continue with dialysis (3) Abscess in epidural space of thoracic spine Plan: Patient is followed by neurosurgery Araceli Freire MD Nov 01, 2016 13:35
[2016-11-01] MEDS: EPOETIN ALFA 10,000 UNITS/ML VIAL IV PRN (14:15)
[2016-11-01] MEDS: VANCOMYCIN INJ 1,000 MG in SODIUM CHLOR 0.9% 250 ML INJ 250 ML IV SCH (14:16)
[2016-11-01 16:18] VITALS: BP 148/83; PULSE 96; RESP 19; TEMP 97.3; O2SAT 96
--- NOTE | 2016-11-01 16:43 | HHI.NSPN ---
Note Status Status: Progress Note Interval History Diagnosis Recurrent chronic abscess Interval History This is a 71-year-old male patient with history of end-stage renal disease, on chronic dialysis treatment, following up with Dr. Freire. He presents to the ER today sent by Dr. Freire for osteomyelitis of the spine. He had not been feeling well and had low-grade fevers and back pains for the last few weeks, had been on vancomycin for the past month, and had an MRI done several days ago which shows osteomyelitis and discitis at the L1. He denies any recent fevers but is still having some lower back pains. He denies any other symptoms. 10/31: reports of low back pain, MRI C, T spine w/o contrast 11/01. Neurologically stable. No neurological deficits. Status post CT guided biopsy of T3 infection Labs, Micro, & Vital Signs Results Date Time Temp Pulse Resp B/P Pulse Ox O2 Delivery O2 Flow Rate FiO2 11/01/16 16:18 97.3 96 19 148/83 96 11/01/16 12:27 97.0 90 18 130/80 100 11/01/16 08:13 96.2 91 18 122/68 96 10/31/16 20:00 97.9 96 18 126/72 98 11/01/16 07:00 Intake Total 240 ml Balance 240 ml Constitutional Vital Signs Date Time Temp Pulse Resp B/P Pulse Ox O2 Delivery O2 Flow Rate FiO2 11/01/16 16:18 97.3 96 19 148/83 96 11/01/16 12:27 97.0 90 18 130/80 100 11/01/16 08:13 96.2 91 18 122/68 96 10/31/16 20:00 97.9 96 18 126/72 98 11/01/16 07:00 Intake Total 240 ml Balance 240 ml Review of Systems/Exam Exam Mr. Conrad is alert, awake and oriented to time, place and person. Speech is fluent. Cranial nerve examination demonstrates the pupils to be equal, round, and reactive to light. Extra-ocular movements are intact. Facial motor and sensory function are normal and symmetrical. Neck is soft and supple. Muscle strength is 5/5 in all muscle groups of both upper extremities including deltoid, biceps, triceps, brachioradialis, wrist extension and signal inspector. In the lower extremities, strength is 5/5 in both iliopsoas, quadriceps, hamstrings, plantar flexion, dorsiflexion, and extensor hallicus longus. Sensory examination is intact to light touch in both the upper and lower extremities, symmetrically. Bilateral plantar flexion response. Hoffmanns sign is negative. There is no clonus or other abnormal reflexes noted. Cerebellar examination is intact to [id number] test Medications Current Medications Current Medications Vancomycin HCl/ Sodium Chloride (Vancomycin Inj/ NS 250 ml Inj) 250 ml @ 250 mls/hr ONCE STAT IV Last administered on 10/29/16 14:14; Start 10/29/16 at 11 :47; Stop 10/29/16 at 12:46; Status DC Vitamin B Complex/ Vit C/Folic Acid (Nephrocaps) 1 cap DAILY PO Last administered on 11/01/16 08:38; Start 10/30/16 at 09:00 Calcitriol (Rocaltrol) 0.5 mcg DAILY PO Last administered on 11/01/16 08:38; Start 10/30/16 at 09:00 Docusate Sodium (Colace) 100 mg BID PO Last administered on 11/01/16 08:38; Start 10/29/16 at 21:00 Sevelamer Carbonate (Renvela) 3,200 mg TID PO Last administered on 10/31/16 12 :11; Start 10/29/16 at 18:00 Cinacalcet (Sensipar) 60 mg DAILY@1600 PO Last administered on 10/31/16 17:05 ; Start 10/29/16 at 16:00 Morphine Sulfate (Morphine Inj) 4 mg Q4H PRN IV PUSH PAIN 5 TO 10; Start at 16:00 Midazolam HCl (Versed Inj) 5 mg STK-MED ONCE .ROUTE Last administered on 17:00; Start 10/29/16 at 17:00; Stop 10/29/16 at 17:01; Status DC Fentanyl Citrate (fentaNYL INJ) 250 mcg STK-MED ONCE .ROUTE Last administered on 10/29/16 17:00; Start 10/29/16 at 17:00; Stop 10/29/16 at 17:01; Status DC Acetaminophen (Tylenol) 650 mg Q4H PRN PO Temp > 100.4; Start 10/29/16 at 17:30 Ondansetron HCl (Zofran Inj) 4 mg Q6H PRN IV NAUSEA; Start 10/29/16 at 17:30 Magnesium Hydroxide (Milk Of Magnesia Liq) 30 ml DAILY PRN PO for Severe Constipation Last administered on 10/31/16t 22:12; Start 10/29/16 at 17:30 Al Hydrox/Mg Hydrox/Simethicone (Mag-Al Plus Susp Liq) 30 ml Q6H PRN PO DYSPEPSIA; Start 10/29/16 at 17:30 Dextrose (D50w (Vial) Inj) 50 ml UNSCH PRN IV HYPOGLYCEMIA-SEE COMMENTS; Start 10/29/16 at 19:15 Glucagon (Glucagon Inj) 1 mg UNSCH PRN OTHER HYPOGLYCEMIA-SEE COMMENTS; Start 10/29/16 at 19:15 Insulin Aspart (NovoLOG SUPPLEMENTAL SCALE) 1 ACHS SLIDING SCALE SQ ; Start at 21:00 Clonidine 0.1 mg 0.1 mg Q6H PRN PO SBP>160, DBP>90; Start 10/29/16 at 19:30 Vancomycin HCl 1000 mg/Sodium Chloride 250 ml @ 250 mls/hr WITH DIALYSIS IV Last administered on 11/01/16t 14:16; Start 10/29/16 at 19:45 Sodium Chloride (NS 1000 ml Inj) 1,000 ml @ 0 mls/hr Q0M PRN IV For Prime & Rinse Back; Start 10/29/16 at 19:43 Heparin Sodium (Porcine) 8000 units 8,000 units UNSCH PRN IVF WITH DIALYSIS; Start 10/29/16 at 19:45 Sodium Chloride 1,000 ml @ 200 mls/hr Q5H PRN IV WITH DIALYSIS; Start 10/29/16 at 19:43 Sodium Chloride (NS 1000 ml Inj) 1,000 ml @ 0 mls/hr Q0M PRN IV WITH DIALYSIS; Start 10/29/16 at 19:43 Mannitol (Mannitol Inj) 12.5 gm UNSCH PRN IV WITH DIALYSIS; Start 10/29/16 at 19:45 Albumin Human (Albumin 25% Inj) 25 gm UNSCH PRN IV WITH DIALYSIS; Start at 19:45 Sodium Chloride (NS Flush) 5 ml UNSCH PRN IV FLUSH WITH DIALYSIS; Start at 19:45 Ondansetron HCl (Zofran Inj) 4 mg UNSCH PRN IV WITH DIALYSIS; Start 10/29/16 at 19:45 Acetaminophen (Tylenol) 650 mg UNSCH PRN PO for headach, pain, temp > 101F; Start 10/29/16 at 19:45 Diphenhydramine HCl (Benadryl) 25 mg UNSCH PRN PO for hives/itching/anaphylaxis ; Start 10/29/16 at 19:45 Nitroglycerin (Nitrostat Sl) 0.4 mg UNSCH PRN SL CHEST PAIN; Start 10/29/16 at 19:45 Clonidine (Catapres) 0.1 mg UNSCH PRN PO for BP > 180/100 X 2 readings; Start 10/29/16 at 19:45 Epoetin Aidan (Epogen Inj) 10,000 units UNSCH PRN IV WITH DIALYSIS Last administered on 11/01/16 14:15; Start 10/29/16 at 19:45 Gelatin 1 foam 1 foam UNSCH PRN TOP SEE LABEL COMMENTS; Start 10/29/16 at 19:45 Vancomycin HCl 1000 mg/Sodium Chloride 250 ml @ 250 mls/hr ONCE ONCE IV ; Start 10/29/16 at 20:00; Stop 10/29/16 at 20:59; Status DC Cefepime HCl 2000 mg/Sodium Chloride 100 ml @ 200 mls/hr Q48H PRN IV WITH DIALYSIS; Start 10/29/16 at 20:15; Stop 10/30/16 at 13:26; Status DC Cefazolin Sodium/ Dextrose (Ancef 2 Gm Premix) 50 ml @ 100 mls/hr Q24H IV Last administered on 10/31/16 12:11; Start 10/30/16 at 14:00 Polyethylene Glycol (Miralax) 17 gm DAILY PO Last administered on 11/01/16 08: 38; Start 10/31/16 at 09:00 Temazepam (Restoril) 30 mg HS PRN PO INSOMNIA Last administered on 10/31/16 22 :12; Start 10/30/16 at 19:00 Lidocaine HCl (Xylocaine 1% Inj) 20 ml STK-MED ONCE .ROUTE ; Start 10/31/16 at 14:22; Stop 10/31/16 at 14:23; Status DC Fentanyl Citrate (fentaNYL INJ) 250 mcg STK-MED ONCE .ROUTE Last administered on 10/31/16t 15:04; Start 10/31/16 at 15:04; Stop 10/31/16 at 15:05; Status DC Midazolam HCl (Versed Inj) 5 mg STK-MED ONCE .ROUTE Last administered on t 15:04; Start 10/31/16 at 15:04; Stop 10/31/16 at 15:05; Status DC Rifampin (Rifampin) 300 mg Q12HR PO ; Start 11/01/16 at 13:15 Medical Decision Making MDM Remarks Last Impressions Upper Extremity Ultrasound 10/31/16 0000 Signed Impressions: Service Date/Time: October 08:16 - CONCLUSION: 1. Left arm dialysis fistula. Exam is otherwise unremarkable. Alexys Nicolas MD Thoracic Spine MRI 10/31/16 0000 Signed Impressions: Service Date/Time: October 10:15 - CONCLUSION: T3-T4 inflammatory disc disease consistent with discitis. Epidural abscess extending from T3-T7 as described. No significant cord compression is noted. Degenerative disc disease with disc osteophyte complexes causing mild anterior epidural effacement but no significant cord compression. Destructive disc process at L1 to characteristic of discitis and osteomyelitis. Magan Black MD Needle Biopsy CT 10/31/16 0000 Signed Impressions: Service Date/Time: October 15:07 - CONCLUSION: Uncomplicated CT guided biopsy. Magan Black MD Cervical Spine MRI 10/31/16 0000 Signed Impressions: Service Date/Time: October 10:15 - CONCLUSION: Degenerative disc disease of the cervical spine without evidence of inflammatory destructive disc or vertebral body changes. Bone marrow edema in the T3 vertebral body secondary to the patient's suspected discitis. No evidence of acute disc herniation or focal spinal cord abnormalities. Magan Black MD Needle Biopsy/Aspiration X-Ray 10/29/16 [id number] Signed Impressions: Service Date/Time: Saturday, October 29, 2016 17:44 - CONCLUSION: Uncomplicated needle biopsy of the L1/L2 disc space as above. Alexys Nicolas MD Plan Plan Remarks 71 y/o male with lumbar discitis, osteomyelitis, possible thoracic epidural abscess Attending Statement Status post CT guided biopsy of epidural fluid collection at T3, Neurologically stable Follow up cultures, continue IV abx per ID Protonix for stress ulcer prophylaxis LINNEA hose and sequential compression devices for DVT prophylaxis. John Gunderson MD Nov 01, 2016 16:43
[2016-11-01] MEDS: RIFAMPIN 150 MG CAP PO SCH ×2 (17:01→22:28)
[2016-11-01] MEDS: ceFAZolin 2 GM PREMIX 50 ML IV SCH (17:02)
[2016-11-01] MEDS: CINACALCET HYDROCHLORIDE 30 MG TAB PO SCH (17:04)
[2016-11-01 20:00] VITALS: BP 135/96; PULSE 96; RESP 24; TEMP 97.2; O2SAT 96
--- NOTE | 2016-11-01 20:22 | RADRPT ---
EXAM DATE/TIME: 11/01/2016 19:15 [facility] COMPARISON: CHEST SINGLE AP, March 13, 2016, 1:10. INDICATIONS : Evaluate for pneumonia, pneumothorax, or communicable diseases. MEDICAL HISTORY : None. SURGICAL HISTORY : None. ENCOUNTER: Initial ACUITY: 1 day PAIN SCORE: 0/10 LOCATION: chest FINDINGS: Single AP view of the chest. Minimal blunting of the right costophrenic sulcus. Mild central pulmonar y vascular prominence. Lungs are clear. No evidence of pneumothorax. Diffuse aortic calcification. Ca rdiomediastinal silhouette otherwise within normal limits. CONCLUSION: Small right pleural effusion. Mild central pulmonary vascular congestion. Marvin Torres MD on November 01, 2016 at 20:18 Board Certified Radiologist. This report was verified electronically.
[2016-11-01] MEDS: TEMAZEPAM 15 MG CAP PO PRN (22:31)
[2016-11-02] MEDS: INSULIN ASPART SUPPLEMENTAL SCALE SQ SCH ×4 (06:11→21:00)
[2016-11-02 08:00] VITALS: BP 134/77; PULSE 92; RESP 18; TEMP 96.3; O2SAT 92
[2016-11-02] MEDS: SEVELAMER CARBONATE 800 MG TAB PO SCH (09:00)
[2016-11-02 09:35] LABS: MEAN CELL VOLUME 93.2 FL (80.0-100.0); MEAN CORPUSCULAR HEMOGLOBIN 31.9 PG (27.0-34.0); MEAN CORPUSCULAR HGB CONC 34.3 % (32.0-36.0); PLATELET COUNT 355 TH/MM3 (150-450); RED BLOOD COUNT 2.79 MIL/MM3 (4.50-5.90); RED CELL DISTRIBUTION WIDTH 14.3 % (11.6-17.2); REVIEW FLAG FINAL; WHITE BLOOD COUNT 6.5 TH/MM3 (4.0-11.0)
[2016-11-02] MEDS: DOCUSATE SODIUM 100 MG CAP PO SCH ×2 (09:55→21:18)
[2016-11-02] MEDS: POLYETHYLENE GLYCOL 17 GM PKG PO SCH (09:55)
[2016-11-02] MEDS: CALCITRIOL 0.25 MCG CAP PO SCH (09:56)
[2016-11-02] MEDS: RIFAMPIN 150 MG CAP PO SCH ×2 (09:57→21:18)
[2016-11-02] MEDS: VITAMIN B CMPLX/VITC/FOLIC AC CAP PO SCH (09:57)
--- NOTE | 2016-11-02 10:21 | HHI.NPPN ---
Subjective History of Present Illness Hx back pain MRI T spine Epidural spine MRI L/T spine Discitis Interval History Underwent HD on Friday. We will continue dialysis MWF. Review of Systems General Constitutional: Fatigue Objective Data Data 11/01/16 11/02/16 19:00 07:00 Intake Total 240 ml Output Total 3500 ml Balance -3500 ml 240 ml Intake Oral 240 ml Output Hemodialysis 3500 ml # Voids 3 # Bowel Movements 1 Vital Signs Date Time Temp Pulse Resp B/P Pulse Ox O2 Delivery O2 Flow Rate FiO2 11/02/16 08:00 96.3 92 18 134/77 92 11/01/16 20:00 97.2 96 24 135/96 96 11/01/16 16:18 97.3 96 19 148/83 96 11/01/16 12:27 97.0 90 18 130/80 100 -: 11/02/16 0758 10/30/16 0744 Physical Exam General Appearance: Well Developed, Well Nourished Eyes Eye Exam: Pupils Equal Neck Neck Exam: Neck Supple Pulmonary Resp Exam: Clear Bilaterally, Breath Sounds Equal Cardiology CV Exam: Regular, Normal Sinus Rhythm Gastrointestinal/Abdomen GI Exam: Soft, Non-Tender, Bowel Sounds Present Extremeties Extremities Exam: No Edema Assessment/Plan Problem List: (1) ESRD (end stage renal disease) on dialysis Plan: hemodialysis 3 times a week while he is in the hospital he has T spine Epidural Abscess, T3 discitis, L discitis osteo Staph Aureus in blood on Ancef and Vancomycin continue supportive care The patient is on Ancef daily: plan is to to stop it. Also on Vancomycin on MWF with dialysis. Rifampin added. T spine abscess needle aspiration culture pending Culture from 10/29 grew MRSA. 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
[2016-11-02 10:32] LABS: BICARBONATE 32.4 MEQ/L (21.0-32.0)
[2016-11-02 11:49] VITALS: BP 118/70; PULSE 87; RESP 18; TEMP 98.3; O2SAT 96
--- NOTE | 2016-11-02 13:23 | EKG ---
Date Performed: 11/01/2016 Time Performed: 19:17:19 PTAGE: 71 years EKG: Sinus rhythm MODERATE INTRAVENTRICULAR CONDUCTION DELAY NONSPECIFIC ST & T-WAVE ABNORMALITY ABNORMAL ECG PREVIOUS TRACING : 03/13/2016 01.42 Compared to prior tracing no significant change DOCTOR: Emery Mack Interpretating Date/Time 11/02/2016 13:22:05
[2016-11-02] MEDS: ceFAZolin 2 GM PREMIX 50 ML IV SCH (13:33)
--- NOTE | 2016-11-02 13:55 | HHI.PR ---
Subjective Remarks no pain ambulating no cp no sob no fever (Latrice WilsonP) Objective Objective Results - Vital Signs Date Time Temp Pulse Resp B/P Pulse Ox O2 Delivery O2 Flow Rate FiO2 11/02/16 11:49 98.3 87 18 118/70 96 11/02/16 08:00 96.3 92 18 134/77 92 11/01/16 20:00 97.2 96 24 135/96 96 11/01/16 16:18 97.3 96 19 148/83 96 I/O 11/01/16 11/01/16 11/01/16 11/02/16 11/02/16 11/02/16 06:59 14:59 22:59 06:59 14:59 22:59 Intake Total 240 ml Output Total 3500 ml Balance -3500 ml 240 ml Intake Oral 240 ml Output Hemodialysis 3500 ml # Voids 1 1 2 # Bowel Movements 1 (Latrice Wilson) Result Diagram: 11/02/16 0758 11/02/16 0758 Other Results Laboratory Tests Test 11/01/16 11/02/16 17:29 07:58 Random Vancomycin Level 22.1 White Blood Count 6.5 Red Blood Count 2.79 Hemoglobin 8.9 Hematocrit 26.0 Mean Corpuscular Volume 93.2 Mean Corpuscular Hemoglobin 31.9 Mean Corpuscular Hemoglobin 34.3 Concent Red Cell Distribution Width 14.3 Platelet Count 355 Mean Platelet Volume 7.4 Sodium Level 134 Potassium Level 4.0 Chloride Level 94 Carbon Dioxide Level 32.4 Anion Gap 8 Blood Urea Nitrogen 32 Creatinine 8.49 Estimat Glomerular Filtration 6 Rate Random Glucose 102 Calcium Level 10.2 Date/Time Procedure Status Source Growth 10/31/16 15:50 Gram Stain - Final Resulted Abscess Back 10/31/16 15:50 Wound Culture - Preliminary Resulted Abscess Back NO GROWTH IN 48 HOURS. 10/30/16 15:35 Aerobic Blood Culture - Preliminary Resulted Blood Peripheral NO GROWTH IN 3 DAYS 10/30/16 15:35 Anaerobic Blood Culture - Preliminary Resulted Blood Peripheral NO GROWTH IN 3 DAYS 10/29/16 17:32 Fungal Smear - Final Resulted Fluid Other NO FUNGAL ELEMENTS SEEN. 10/29/16 17:32 Fungal Culture Resulted Fluid Other Pending 10/29/16 17:32 Acid Fast Stain - Final Resulted Fluid Other NO ACID FAST BACILLI SEEN 10/29/16 17:32 Mycobacterial Culture Resulted Fluid Other Pending (Latrice Wilson) ROS General: No: Fatigue, Weakness HEENT: No: Sore Throat, Dysphagia Cardiac: No: Chest Pain, Edema, Palpitations Pulmonary: No: Cough, SOB, Wheezing GI: No: Abdominal Pain, BM, Diarrhea, N/V /HEAD OF SALES PROMOTION: No: Dysuria, Urgency Neuro/MS: No: Lightheaded, Confusion Psych: No: Anxiety, Depression Skin: No: Itching, Rash (Latrice Wilson) Physical Exam Physical Exam GENERAL: This is a well-nourished, well-developed patient, in no apparent distress. SKIN: No rashes, ecchymoses or lesions. Cool and dry. HEAD: Atraumatic. Normocephalic. No temporal or scalp tenderness. EYES: Pupils equal round and reactive. Extraocular motions intact. No scleral icterus. No injection or drainage. ENT: Nose without bleeding, purulent drainage or septal hematoma. Throat without erythema, tonsillar hypertrophy or exudate. Uvula midline. Airway patent. NECK: Trachea midline. No JVD or lymphadenopathy. Supple, nontender, no meningeal signs. CARDIOVASCULAR: Regular rate and rhythm without murmurs, gallops, or rubs. RESPIRATORY: Clear to auscultation. Breath sounds equal bilaterally. No wheezes , rales, or rhonchi. GASTROINTESTINAL: Abdomen soft, non-tender, nondistended. No hepato-splenomegaly , or palpable masses. No guarding. MUSCULOSKELETAL: Extremities without clubbing, cyanosis, or edema. No joint tenderness, effusion, or edema noted. No calf tenderness. Negative Homans sign bilaterally. NEUROLOGICAL: Awake and alert. Cranial nerves II through XII intact. Motor and sensory grossly within normal limits. Five out of 5 muscle strength in all muscle groups. Normal speech. (Latrice Wilson) Urinary Catheter: No (Latrice Wilson) Vascular Central Line Catheter: No (Latrice Wilson) A/P Diagnosis: (1) Abscess in epidural space of thoracic spine (2) Osteomyelitis of lumbar spine (3) Discitis (4) Murmur, cardiac (5) Diabetes (6) Anemia (7) ESRD (end stage renal disease) on dialysis Assessment and Plan 71-year-old male patient with history of MSSA bacteremia, strep sepsis and discitis and septic right shoulder. Presented to the emergency room with complaint of back pain, had MRI done as outpatient showing osteomyelitis and discitis at L1 level. Thoracic epidural abscess -Neurosurgery has been consulted, Dr. Comer input appreciated -S/P CT guided Biopsies of the L1/L2 disc space 10/29 -Continue with empiric antibiotics, Vanco and Ancef -BC 10/29, + MRSA, continue vanco, Rifampin added. Monitor LFTs. -continue to follow most recent cultures, pending -Appreciate ID input, recommends US AVF negative for thrombus -Thoracic spine MRI done, inflammatory disc disease consistent with discitis, epidural abscess extending from T3 -T7. No cord compression. -CT-guided biopsy of thoracic epidural abscess 10/31 -Neurosurgery does not recommend surgery at this time. -Continue to follow cultures ESRD on HD -Nephrology consult -HD per schedule -pt. was pursuing renal transplant however because of infection he will be removed from list HTN, stable -Continue Clonidine 0.1 mg by mouth every 6 when necessary for systolic greater than 160 and diastolic greater than 90 Diet controlled diabetes -Accuchecks with low dose ISS Anemia, secondary to chronic kidney disease Monitor CBC closely, hemoglobin 8.8, noted with drop since last admission when he was 12. Murmur, stable Continue to monitor SCDs for DVT prophylaxis OOB to ambulate, PT eval Cont to follow cultures Discharge planning, likely to go home with antibiotics as outpatient. LFTs in am D/W RN D/W Dr. Chang D/W pt This patient was seen by myself and Dr. Chang, this note is written on his behalf. (Latrice Wilson) Assessment and Plan pt is seen & examined d/w PT d/w Latrice bonds w above cont Vanco/rifampin f/u blood c/s cont current tx will f/u (Melecio Chang MD) Problem Qualifiers (1) Discitis: Qualified Code: M46.46 - Discitis of lumbar region (2) Diabetes: Qualified Code: E11.22 - Type 2 diabetes mellitus with chronic kidney disease on chronic dialysis, unspecified correction insulin use status (3) Anemia: Latrice Wilson Nov 02, 2016 13:55 Melecio Chang MD Nov 02, 2016 15:25
--- NOTE | 2016-11-02 15:25 | HHI.NSPN ---
History Chief Complaint: no complaints Interval History 71-year-old male on chronic dialysis. Recently presented with new onset back pain. Previous history of L1 discitis-recent treatment with IV vancomycin. 10/31/16-thoracic CT guided biopsy. Exam Results Vital Signs Date Time Temp Pulse Resp B/P Pulse Ox O2 Delivery O2 Flow Rate FiO2 11/02/16 11:49 98.3 87 18 118/70 96 10/31/16 10:30 21 10/29/16 19:30 Room Air Intake and Output 11/01/16 11/01/16 11/02/16 08:00 16:00 00:00 Output Total 3500 ml Balance -3500 ml Physical Examination Mr. Conrad is alert, awake and oriented to time, place and person. Speech is fluent. Neck is soft and supple. Sitting up in a chair in no apparent distress. Muscle strength is 5/5 in all muscle groups of both upper extremities including deltoid, biceps, triceps, brachioradialis, wrist extension and wire brusher. In the lower extremities, strength is 5/5 in both iliopsoas, quadriceps, hamstrings, plantar flexion, dorsiflexion, and extensor hallicus longus. Sensory examination is intact to light touch in both the upper and lower extremities, symmetrically. Bilateral plantar flexion response. Hoffmanns sign is negative. There is no clonus or other abnormal reflexes noted. Cerebellar examination is intact to [id number] test Lab, Micro, Other Results Microbiology Date/Time Procedure Status Source Growth 10/30/16 15:30 Aerobic Blood Culture - Preliminary Resulted Blood Peripheral NO GROWTH IN 3 DAYS 10/30/16 15:30 Anaerobic Blood Culture - Preliminary Resulted Blood Peripheral NO GROWTH IN 3 DAYS 10/30/16 15:35 Aerobic Blood Culture - Preliminary Resulted Blood Peripheral NO GROWTH IN 3 DAYS 10/30/16 15:35 Anaerobic Blood Culture - Preliminary Resulted Blood Peripheral NO GROWTH IN 3 DAYS 10/31/16 15:50 Gram Stain - Final Resulted Abscess Back 10/31/16 15:50 Wound Culture - Preliminary Resulted Abscess Back NO GROWTH IN 48 HOURS. Medical Decision Making Impression and Plan Impression: 1. T3-4 discitis-osteomyelitis. Remote L1 osteomyelitis. Ongoing treatment with vancomycin. Plan: Discussed with patient. Neurologic exam remains stable. No significant back pain Most recent CT-guided T3-4 aspiration no growth Rifampin added per infectious disease No neurosurgical intervention anticipated at this time Devonte Myers MD Nov 02, 2016 15:25
[2016-11-02] MEDS: CINACALCET HYDROCHLORIDE 30 MG TAB PO SCH (15:57)
[2016-11-02 16:00] VITALS: BP 122/73; PULSE 89; RESP 18; TEMP 97.3; O2SAT 98
[2016-11-02 20:00] VITALS: BP 118/70; PULSE 94; RESP 20; TEMP 97; O2SAT 98
[2016-11-02] MEDS: ACETAMINOPHEN 325 MG TAB PO PRN (21:21)
[2016-11-02] MEDS: TEMAZEPAM 15 MG CAP PO PRN (21:22)
[2016-11-03] MEDS: INSULIN ASPART SUPPLEMENTAL SCALE SQ SCH ×4 (06:21→20:25)
[2016-11-03 08:00] VITALS: BP 130/70; PULSE 88; RESP 20; TEMP 96.4; O2SAT 96
[2016-11-03 08:36] LABS: ALT (GPT) LESS THAN 6 U/L (12-78); AST (GOT) 32 U/L (15-37)
[2016-11-03 08:39] LABS: ALKALINE PHOSPHATASE 62 U/L (45-117); INDIRECT BILIRUBIN 0.2 MG/DL (0.0-0.8); TOTAL BILIRUBIN ADULT 0.3 MG/DL (0.2-1.0)
[2016-11-03] MEDS: SEVELAMER CARBONATE 800 MG TAB PO SCH ×3 (09:00→18:00)
[2016-11-03] MEDS: POLYETHYLENE GLYCOL 17 GM PKG PO SCH (09:03)
[2016-11-03] MEDS: DOCUSATE SODIUM 100 MG CAP PO SCH ×2 (09:03→20:34)
[2016-11-03] MEDS: CALCITRIOL 0.25 MCG CAP PO SCH (09:03)
[2016-11-03] MEDS: RIFAMPIN 150 MG CAP PO SCH ×2 (09:03→20:34)
[2016-11-03] MEDS: VITAMIN B CMPLX/VITC/FOLIC AC CAP PO SCH (09:03)
--- NOTE | 2016-11-03 09:46 | HHI.NPPN ---
Subjective History of Present Illness Hx back pain MRI T spine Epidural spine MRI L/T spine Discitis Interval History Neurosurgery noted. No plans for surgery at this time. Review of Systems General Constitutional: Fatigue Objective Data Data 11/02/16 11/03/16 19:00 07:00 Intake Total 240 ml Balance 240 ml Intake Oral 240 ml # Voids 6 3 # Bowel Movements 1 0 Vital Signs Date Time Temp Pulse Resp B/P Pulse Ox O2 Delivery O2 Flow Rate FiO2 11/03/16 08:00 96.4 88 20 130/70 96 11/02/16 20:00 97.0 94 20 118/70 98 11/02/16 16:00 97.3 89 18 122/73 98 11/02/16 11:49 98.3 87 18 118/70 96 -: 11/02/16 0758 11/02/16 0758 Physical Exam General Appearance: Well Developed, Well Nourished Eyes Eye Exam: Pupils Equal Neck Neck Exam: Neck Supple Pulmonary Resp Exam: Clear Bilaterally, Breath Sounds Equal Cardiology CV Exam: Regular, Normal Sinus Rhythm Gastrointestinal/Abdomen GI Exam: Soft, Non-Tender, Bowel Sounds Present Extremeties Extremities Exam: No Edema Assessment/Plan Problem List: (1) ESRD (end stage renal disease) on dialysis Plan: hemodialysis 3 times a week while he is in the hospital he has T spine Epidural Abscess, T3 discitis, L discitis osteo Staph Aureus in blood on Ancef and Vancomycin continue supportive care Also on Vancomycin on MWF with dialysis. Rifampin added. Consider stopping Ancef. T spine abscess needle aspiration culture pending Culture from 10/29 grew MRSA. (2) Osteomyelitis of lumbar spine Plan: See above. No plans for surgery. Medical management with antibiotics. (3) Abscess in epidural space of thoracic spine Plan: Patient is followed by neurosurgery Nando Ledezma MD Nov 03, 2016 09:46
--- NOTE | 2016-11-03 11:41 | HHI.PR ---
Subjective Remarks back pain yesterday, Tylenol took the "edge" off, better today indigestion yesterday, resolved now ate okay no n/v no fever moving bowels Objective Objective Results - Vital Signs Date Time Temp Pulse Resp B/P Pulse Ox O2 Delivery O2 Flow Rate FiO2 11/03/16 08:00 96.4 88 20 130/70 96 11/02/16 20:00 97.0 94 20 118/70 98 11/02/16 16:00 97.3 89 18 122/73 98 11/02/16 11:49 98.3 87 18 118/70 96 I/O 11/02/16 11/02/16 11/02/16 11/03/16 11/03/16 11/03/16 07:00 15:00 23:00 07:00 15:00 23:00 Intake Total 240 ml 240 ml Balance 240 ml 240 ml Intake Oral 240 ml 240 ml # Voids 2 6 2 1 # Bowel Movements 1 0 Result Diagram: 11/02/16 0758 11/02/16 0758 Other Results Laboratory Tests Test 11/03/16 07:44 Total Bilirubin 0.3 Direct Bilirubin 0.1 Indirect Bilirubin 0.2 Aspartate Amino Transf 32 (AST/SGOT) Alanine Aminotransferase LESS THAN 6 (ALT/SGPT) Alkaline Phosphatase 62 Total Protein 6.2 Albumin 2.6 Date/Time Procedure Status Source Growth 10/31/16 15:50 Gram Stain - Final Complete Abscess Back 10/31/16 15:50 Wound Culture - Final Complete Abscess Back NO GROWTH IN 72 HRS.--AEROBICALLY OR ... 10/30/16 15:35 Aerobic Blood Culture - Preliminary Resulted Blood Peripheral NO GROWTH IN 4 DAYS 10/30/16 15:35 Anaerobic Blood Culture - Preliminary Resulted Blood Peripheral NO GROWTH IN 4 DAYS 10/29/16 17:32 Fungal Smear - Final Resulted Fluid Other NO FUNGAL ELEMENTS SEEN. 10/29/16 17:32 Fungal Culture Resulted Fluid Other Pending 10/29/16 17:32 Acid Fast Stain - Final Resulted Fluid Other NO ACID FAST BACILLI SEEN 10/29/16 17:32 Mycobacterial Culture Resulted Fluid Other Pending 10/29/16 12:15 Aerobic Blood Culture - Final Complete Blood Peripheral NO GROWTH IN 5 DAYS 10/29/16 12:15 Anaerobic Blood Culture - Final Complete Blood Peripheral NO GROWTH IN 5 DAYS ROS General: No: Fatigue, Weakness HEENT: No: Sore Throat, Dysphagia Cardiac: No: Chest Pain, Edema, Palpitations Pulmonary: No: Cough, SOB, Wheezing GI: No: Abdominal Pain, BM, Diarrhea, N/V /ORDNANCE EQUIPMENT WORKER: No: Dysuria, Urgency Neuro/MS: No: Lightheaded, Confusion Psych: No: Anxiety, Depression Skin: No: Itching, Rash Physical Exam Physical Exam GENERAL: This is a well-nourished, well-developed patient, in no apparent distress. SKIN: No rashes, ecchymoses or lesions. Cool and dry. HEAD: Atraumatic. Normocephalic. No temporal or scalp tenderness. EYES: Pupils equal round and reactive. Extraocular motions intact. No scleral icterus. No injection or drainage. ENT: Nose without bleeding, purulent drainage or septal hematoma. Throat without erythema, tonsillar hypertrophy or exudate. Uvula midline. Airway patent. NECK: Trachea midline. No JVD or lymphadenopathy. Supple, nontender, no meningeal signs. CARDIOVASCULAR: Regular rate and rhythm without murmurs, gallops, or rubs. RESPIRATORY: Clear to auscultation. Breath sounds equal bilaterally. No wheezes , rales, or rhonchi. GASTROINTESTINAL: Abdomen soft, non-tender, nondistended. No hepato-splenomegaly , or palpable masses. No guarding. MUSCULOSKELETAL: Extremities without clubbing, cyanosis, or edema. No joint tenderness, effusion, or edema noted. No calf tenderness. Negative Homans sign bilaterally. NEUROLOGICAL: Awake and alert. Cranial nerves II through XII intact. Motor and sensory grossly within normal limits. Five out of 5 muscle strength in all muscle groups. Normal speech. 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 Presented to the emergency room with complaint of back pain, had MRI done as outpatient showing osteomyelitis and discitis at L1 level. Thoracic epidural abscess -Neurosurgery has been consulted, Dr. Comer input appreciated -S/P CT guided Biopsies of the L1/L2 disc space 10/29 -Continue with empiric antibiotics, Vanco and Ancef -BC 10/29, + MRSA, continue vanco, Rifampin added. LFTs okay -continue to follow most recent cultures, pending -Appreciate ID input, recommends US AVF negative for thrombus -Thoracic spine MRI done, inflammatory disc disease consistent with discitis, epidural abscess extending from T3 -T7. No cord compression. -CT-guided biopsy of thoracic epidural abscess 10/31 -Neurosurgery does not recommend surgery at this time. -Continue to follow cultures, negative so far. Patho pending ESRD on HD -Nephrology consult -HD per schedule -pt. was pursuing renal transplant however because of infection he will be removed from list HTN, stable -Continue Clonidine 0.1 mg by mouth every 6 when necessary for systolic greater than 160 and diastolic greater than 90 Diet controlled diabetes -Accuchecks with low dose ISS Anemia, secondary to chronic kidney disease Monitor CBC closely, hemoglobin 8.8, noted with drop since last admission when he was 12. Murmur, stable Continue to monitor SCDs for DVT prophylaxis OOB daily add [place] 7.5/35 PRN pain Cont to follow cultures Discharge planning, likely to go home with antibiotics as outpatient. darien dc tomorrow D/W RN D/W Dr. Chang D/W pt This patient was seen by myself and Dr. Chang, this note is written on his behalf. Problem Qualifiers (1) Discitis: Qualified Code: M46.46 - Discitis of lumbar region (2) Diabetes: Qualified Code: E11.22 - Type 2 diabetes mellitus with chronic kidney disease on chronic dialysis, unspecified terminal carman insulin use status (3) Anemia: Latrice Wilson Nov 03, 2016 11:40
[2016-11-03 11:45] VITALS: BP 124/87; PULSE 87; RESP 20; TEMP 97; O2SAT 98
[2016-11-03] MEDS ORDERED: ACETAMINOPHEN/HYDROcodone 325 MG/7.5 MG TAB PO PRN (11:45)
--- NOTE | 2016-11-03 13:20 | HHI.NSPN ---
(Andrei Bowles) History Chief Complaint: Some back pain earlier (Andrei Bowles) Interval History 71-year-old male on chronic dialysis. Recently presented with new onset back pain. Previous history of L1 discitis-recent treatment with IV vancomycin. 10/31/16-thoracic CT guided biopsy. 11/03: The patient is doing well when seen this afternoon. He has no complaints when seen but did endorse some back pain between the shoulder blades last night. He said that the plan is to discharge him home tomorrow after dialysis and for him to follow up in the clinic for his intravenous antibiotics. (Andrei Bowles) System Review Comments CONSTITUTIONAL: Denies any fever or chills. NECK: Denies any neck pain or limited movement. MUSCULOSKELETAL: Some back pain across the shoulder blades last night but none at present. Denies any arm or leg pain or weakness. NEUROLOGICAL: Denies any headache, dizziness, numbness or tingling. (Andrei Bowles) Exam Results Vital Signs Date Time Temp Pulse Resp B/P Pulse Ox O2 Delivery O2 Flow Rate FiO2 11/03/16 11:45 97.0 87 20 124/87 98 10/31/16 10:30 21 Intake and Output 11/02/16 11/02/16 11/02/16 07:59 15:59 23:59 Intake Total 240 ml 240 ml Balance 240 ml 240 ml (Andrei Bowles) Physical Examination GENERAL: Awake & alert, readily interacts, normal affect. HEENT: Normocephalic, atraumatic. NECK: Midline cervical spine NTTP, full AROM, no JVD, trachea midline. MUSCULOSKELETAL: DAVID w/o difficulty, no evident discolouration, deformity or clubbing. Thoracolumbar spine NTTP. Extremities NTTP. NEUROLOGICAL: AAOx3 Speech clear & appropriate Follows simple commands Sensation to light touch intact to all extremities Motor strength 5/5 to all major flexion & extension muscle groups (Andrei Bowles) Medical Decision Making Impression and Plan Impression: 1. T3-4 discitis-osteomyelitis. Remote L1 osteomyelitis. Ongoing treatment with vancomycin. Patient is doing well, neurologically intact Plan: Discussed plan of care with patient Primary mgmt per Hospitalist Abx per Infectious Disease No NSGY intervention indicated at present (Andrei Bowles) Attending Statement I have personally seen and examined the patient on the date of this note. Pertinent documentation and study results have been reviewed by the undersigned. I have personally developed the treatment plan and performed medical decision making. Agree with findings, exam, and treatment plan as noted above. Patient's neurologic exam remains within normal limits upper and lower extremities today. Discussed treatment plan with the patient. He is stable for discharge from neurosurgery standpoint with outpatient follow- up. (Devonte Myers MD) Andrei Bowles Nov 03, 2016 13:20 Devonte Myers MD Nov 03, 2016 20:12
[2016-11-03] MEDS: ACETAMINOPHEN 325 MG TAB PO PRN (14:00)
[2016-11-03] MEDS: ceFAZolin 2 GM PREMIX 50 ML IV SCH (14:01)
[2016-11-03 16:00] VITALS: BP 105/66; PULSE 83; RESP 20; TEMP 97.1; O2SAT 97
[2016-11-03] MEDS: CINACALCET HYDROCHLORIDE 30 MG TAB PO SCH (17:12)
[2016-11-03] MEDS: TEMAZEPAM 15 MG CAP PO PRN (20:34)
[2016-11-03 21:46] VITALS: BP 116/68; PULSE 88; RESP 20; TEMP 98.1; O2SAT 96
[2016-11-04] MEDS: ACETAMINOPHEN 325 MG TAB PO PRN ×2 (06:34→21:29)
[2016-11-04] MEDS: INSULIN ASPART SUPPLEMENTAL SCALE SQ SCH ×4 (06:35→21:00)
[2016-11-04 08:06] VITALS: BP 122/72; PULSE 81; RESP 20; TEMP 96; O2SAT 97
[2016-11-04] MEDS: SEVELAMER CARBONATE 800 MG TAB PO SCH ×3 (08:19→17:00)
[2016-11-04] MEDS: DOCUSATE SODIUM 100 MG CAP PO SCH ×2 (08:19→21:29)
[2016-11-04] MEDS: VITAMIN B CMPLX/VITC/FOLIC AC CAP PO SCH (08:19)
[2016-11-04] MEDS: RIFAMPIN 150 MG CAP PO SCH ×2 (08:19→21:29)
[2016-11-04] MEDS: CALCITRIOL 0.25 MCG CAP PO SCH (08:19)
[2016-11-04] MEDS: POLYETHYLENE GLYCOL 17 GM PKG PO SCH (08:19)
--- NOTE | 2016-11-04 11:04 | HHI.NPPN ---
Subjective History of Present Illness Hx back pain MRI T spine Epidural spine MRI L/T spine Discitis Review of Systems General Constitutional: Fatigue Objective Data Data 11/03/16 11/04/16 19:00 07:00 Output Total 0 ml Balance 0 ml Output Stool Total 0 ml # Voids 1 1 Vital Signs Date Time Temp Pulse Resp B/P Pulse Ox O2 Delivery O2 Flow Rate FiO2 11/04/16 08:06 96.0 81 20 122/72 97 11/03/16 21:46 98.1 88 20 116/68 96 11/03/16 16:00 97.1 83 20 105/66 97 11/03/16 15:15 16 11/03/16 11:45 97.0 87 20 124/87 98 -: 11/02/16 0758 11/02/16 0758 Physical Exam General Appearance: Well Developed, Well Nourished Eyes Eye Exam: Pupils Equal Neck Neck Exam: Neck Supple Pulmonary Resp Exam: Clear Bilaterally, Breath Sounds Equal Cardiology CV Exam: Regular, Normal Sinus Rhythm Gastrointestinal/Abdomen GI Exam: Soft, Non-Tender, Bowel Sounds Present Extremeties Extremities Exam: No Edema Assessment/Plan Problem List: (1) ESRD (end stage renal disease) on dialysis Plan: hemodialysis 3 times a week while he is in the hospital he has T spine Epidural Abscess, T3 discitis, L discitis osteo seen during dialysis 2.3 L UF on 3 K /hco3 Staph Aureus in blood on Vancomycin continue supportive care Also on Vancomycin on MWF with dialysis. Rifampin added. Consider stopping Ancef. T spine abscess needle aspiration culture pending Culture from 10/29 grew MRSA. (2) Osteomyelitis of lumbar spine Plan: See above. No plans for surgery. Medical management with antibiotics. 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
[2016-11-04] MEDS: EPOETIN ALFA 10,000 UNITS/ML VIAL IV PRN (12:09)
[2016-11-04] MEDS: VANCOMYCIN INJ 1,000 MG in SODIUM CHLOR 0.9% 250 ML INJ 250 ML IV SCH (12:10)
[2016-11-04] MEDS: ceFAZolin 2 GM PREMIX 50 ML IV SCH (13:24)
--- NOTE | 2016-11-04 14:32 | HHI.PR ---
Subjective Remarks pt is sitting on chair without any apparent distress Feeling better Review of system for 10 point system otherwise unremarkable Objective Objective Results - Vital Signs Date Time Temp Pulse Resp B/P Pulse Ox O2 Delivery O2 Flow Rate FiO2 11/04/16 08:06 96.0 81 20 122/72 97 11/03/16 21:46 98.1 88 20 116/68 96 11/03/16 16:00 97.1 83 20 105/66 97 11/03/16 15:15 16 I/O 11/03/16 11/03/16 11/03/16 11/04/16 11/04/16 11/04/16 07:00 15:00 23:00 07:00 15:00 23:00 Output Total 0 ml 2900 ml Balance 0 ml -2900 ml Output Stool Total 0 ml Hemodialysis 2900 ml # Voids 1 1 1 Result Diagram: 11/02/16 0758 11/02/16 0758 Other Results Date/Time Procedure Status Source Growth 10/31/16 15:50 Gram Stain - Final Complete Abscess Back 10/31/16 15:50 Wound Culture - Final Complete Abscess Back NO GROWTH IN 72 HRS.--AEROBICALLY OR ... 10/30/16 15:35 Aerobic Blood Culture - Final Complete Blood Peripheral NO GROWTH IN 5 DAYS 10/30/16 15:35 Anaerobic Blood Culture - Final Complete Blood Peripheral NO GROWTH IN 5 DAYS Physical Exam Physical Exam GENERAL: This is a well-nourished, well-developed patient, in no apparent distress. SKIN: Cool and dry. HEAD: Atraumatic. Normocephalic. No temporal or scalp tenderness. EYES: Extraocular motions intact. No scleral icterus. No injection or drainage. ENT: Airway patent. NECK: Trachea midline. CARDIOVASCULAR: Regular rate and rhythm, 3/6 systolic ejection murmurs, gallops , or rubs. RESPIRATORY: Clear to auscultation. Breath sounds equal bilaterally. No wheezes , rales, or rhonchi. GASTROINTESTINAL: Abdomen soft, non-tender, nondistended. No hepato-splenomegaly , or palpable masses. No guarding. MUSCULOSKELETAL: Extremities without clubbing, cyanosis, or edema. No joint tenderness, effusion, or edema noted. No calf tenderness. Negative Homans sign bilaterally. NEUROLOGICAL: Awake and alert. Cranial nerves II through XII intact. Motor and sensory grossly within normal limits. Five out of 5 muscle strength in all muscle groups. Normal speech. Urinary Catheter: No Vascular Central Line Catheter: No A/P Assessment and Plan (1) Abscess in epidural space of thoracic spine (2) Osteomyelitis of lumbar spine (3) Discitis (4) Murmur, cardiac (5) Diabetes (6) Anemia (7) ESRD (end stage renal disease) on dialysis Plan 71-year-old male patient with history of MSSA bacteremia, strep sepsis and discitis and septic right shoulder. Presented to the emergency room with complaint of back pain, had MRI done as outpatient showing osteomyelitis and discitis at L1 level. Thoracic epidural abscess -Neurosurgery has been consulted, Dr. Comer input appreciated -S/P CT guided Biopsies of the L1/L2 disc space 10/29 -Continue with empiric antibiotics, Vanco and Ancef -BC 10/29, + MRSA, continue vanco, Rifampin added. LFTs okay -continue to follow most recent cultures, pending -Appreciate ID input, recommends US AVF negative for thrombus -Thoracic spine MRI done, inflammatory disc disease consistent with discitis, epidural abscess extending from T3 -T7. No cord compression. -CT-guided biopsy of thoracic epidural abscess 10/31 -Neurosurgery does not recommend surgery at this time. -Continue to follow cultures, negative so far. Patho pending -Final recommendation of antibiotic as per ID ESRD on HD -Nephrology consult and input appreciated -HD per schedule -pt. was pursuing renal transplant however because of infection he will be removed from list HTN, stable -Continue Clonidine 0.1 mg by mouth every 6 when necessary for systolic greater than 160 and diastolic greater than 90 Diet controlled diabetes -Accuchecks with low dose ISS Anemia, secondary to chronic kidney disease Monitor CBC closely, hemoglobin 8.8, noted with drop since last admission when he was 12. Murmur, stable Continue to monitor SCDs for DVT prophylaxis OOB daily add [place] 7.5/35 PRN pain Cont to follow cultures Discharge planning, likely to go home with antibiotics as outpatient. Depending on the final recommendation by infectious disease Dr. ledezma dc tomorrow D/W RN Alejandro Evans MD Nov 04, 2016 14:32
[2016-11-04 16:05] VITALS: BP 109/64; PULSE 91; RESP 18; TEMP 98.2; O2SAT 99
[2016-11-04] MEDS: CINACALCET HYDROCHLORIDE 30 MG TAB PO SCH (17:00)
--- NOTE | 2016-11-04 17:41 | HHI.IDPN ---
Subjective Subjective Remarks 71 Y/O with ESRD on HD, previous hx GBS bacteremia, L1 discitis 2014, MSSA bacteremia treated 2015, LEONARD negative; admitted with back pain, has been on IV Vancomycin since middle or end of September, admitted due to abnormal MRI done as outpatient Notes reviewed Temps ok Had procedure at T3-T4 level - C/S negative C/S L1 - negative One BC with MRSA No new (+) BC D/W Dr luna last Friday - BC from [place] [facility] clinic had MSSA MRI with T3-T4 discitis, epidural abscess T3-T7, L1 discitis/osteo Biopsy back - chronic inflammation ESR >140 CRP 5.86 US AVF - no thrombus Antibiotics Vanco with HD Rifampin Lines PIV Past Medical History Hypertension Diabetes ESRD, on hemodialysis Pneumonia Osteoarthritis Hyperlipidemia Strep sepsis last March 2015 Discitis treated last March 2015 Right shoulder septic joint, had surgery, and treated last March 2015 Past Surgical History ORIF left wrist Umbilical hernia repair Left forearm AV fistula Surgery on the right shoulder Allergies: Coded Allergies: *MDRO Multi-Drug Resistant Organism (Verified Adverse Reaction, Unknown, ) MRSA PCR screen POSITIVE - 03/13/16 MRSA (blood)-10/29/16 Objective . Vital Signs Date Time Temp Pulse Resp B/P Pulse Ox O2 Delivery O2 Flow Rate FiO2 11/04/16 16:05 98.2 91 18 109/64 99 11/04/16 08:06 96.0 81 20 122/72 97 11/03/16 21:46 98.1 88 20 116/68 96 11/03/16 11/03/16 11/04/16 15:00 23:00 07:00 Output Total 0 ml Balance 0 ml Output Stool Total 0 ml # Voids 1 1 . Laboratory Tests Test 11/03/16 07:44 Total Bilirubin 0.3 MG/DL Direct Bilirubin 0.1 MG/DL Indirect Bilirubin 0.2 MG/DL Aspartate Amino Transf 32 U/L (AST/SGOT) Alanine Aminotransferase LESS THAN 6 U/L (ALT/SGPT) Alkaline Phosphatase 62 U/L Total Protein 6.2 GM/DL Albumin 2.6 GM/DL Imaging Last Impressions Thoracic Spine MRI 10/31/16 0000 Signed Impressions: Service Date/Time: October 10:15 - CONCLUSION: T3-T4 inflammatory disc disease consistent with discitis. Epidural abscess extending from T3-T7 as described. No significant cord compression is noted. Degenerative disc disease with disc osteophyte complexes causing mild anterior epidural effacement but no significant cord compression. Destructive disc process at L1 to characteristic of discitis and osteomyelitis. Magan Black MD Cervical Spine MRI 10/31/16 0000 Signed Impressions: Service Date/Time: , October 31, 2016 10:15 - CONCLUSION: Degenerative disc disease of the cervical spine without evidence of inflammatory destructive disc or vertebral body changes. Bone marrow edema in the T3 vertebral body secondary to the patient's suspected discitis. No evidence of acute disc herniation or focal spinal cord abnormalities. Magan Black MD Physical Exam GENERAL: awake and alert, not in respiratory distress. SKIN: Warm and dry. No generalized rash, no ecchymoses and no evidence of embolic lesions. HEENT: [place] conjunctiva. No petechia or hemorrhage. No scleral icterus. No injection or drainage. Mucous membranes pink and moist. No oral lesions noted. No exudate. No oral thrush. NECK: Trachea midline. Supple and not tender, no meningeal signs CARDIOVASCULAR: Regular rate and rhythm. No murmurs, rubs or gallops heard RESPIRATORY: Clear to auscultation. Breath sounds equal bilaterally. No rales , wheezing or rhonchi ABDOMEN: Soft, non-tender, nondistended. Bowel sounds present and normoactive. No guarding. No rebound. No organomegaly. EXTREMITIES: No clubbing, cyanosis, or edema. No joint effusion, has good ROM. No calf tenderness. Well perfused and warm. AVF looks ok NEUROLOGICAL: Awake and alert. Cranial nerves grossly intact. Motor grossly within normal limits. PSYCHIATRIC: Normal affect, calm and cooperative. LINE: No evidence of infection Assessment & Plan Remarks IMPRESSION Discitis spine, L1 - previous Rx for T12-L1 discitis 2014, had BC with GBS - ?recurrent infection - ?new infection from seeding of his MSSA bacteremia that was Rx 2015 (LEONARD negative) - BC from [place] last September with MSSA - BC here with MRSA New T3-T4 discitis and epidural abscess T3-T7 ESRD Patient on transplant list RECOMMENDATION Continue Vanco - give at least 12 weeks - follow ESR/CRP, should improve, may need longer if not decreasing and repeat imaging studies Continue Rifampin, longer if tolerated but at least 6 weeks - follow LFT while on this Monitor progress D/C plans noted Angela Farmer MD Nov 04, 2016 17:41
[2016-11-04 20:36] VITALS: BP 103/66; PULSE 90; RESP 19; TEMP 98.3; O2SAT 97
[2016-11-04] MEDS: TEMAZEPAM 15 MG CAP PO PRN (21:29)
[2016-11-05] MEDS: INSULIN ASPART SUPPLEMENTAL SCALE SQ SCH ×2 (06:43→11:00)
[2016-11-05 08:00] VITALS: BP 120/72; PULSE 85; RESP 18; TEMP 96.9; O2SAT 96
[2016-11-05 08:56] VITALS: BP 171/101
[2016-11-05] MEDS: SEVELAMER CARBONATE 800 MG TAB PO SCH ×3 (09:00→13:00)
--- NOTE | 2016-11-05 09:07 | HHI.PR ---
Subjective Remarks Sitting up in chair Alert oriented No acute pain or shortness of breath Afebrile vital signs with normal trends (Natasha Dumont) Objective Objective Results - Vital Signs Date Time Temp Pulse Resp B/P Pulse Ox O2 Delivery O2 Flow Rate FiO2 11/05/16 08:56 171/101 11/05/16 08:00 96.9 85 18 120/72 96 11/04/16 20:36 98.3 90 19 103/66 97 11/04/16 16:05 98.2 91 18 109/64 99 I/O 11/04/16 11/04/16 11/04/16 11/05/16 11/05/16 11/05/16 07:00 15:00 23:00 07:00 15:00 23:00 Output Total 5800 ml Balance -5800 ml Hemodialysis 5800 ml # Voids 1 1 (Natasha Dumont) Result Diagram: 11/02/16 0758 11/02/16 0758 ROS General: Fatigue (mild ), Other (10 point ROS done positives noted) GI: BM (bowel regimen) Skin: Other (discitis dural abscess) (Natasha Dumont) Physical Exam Physical Exam PHYSICAL EXAMINATION GENERAL: This is a well-developed, elderly male who appears to be in no acute distress. He is alert and awake, sitting up in chair HEAD: Normocephalic atraumatic OROPHARYNGEAL: Oropharynx clear NECK: Supple. CARDIAC: Regular rhythm, regular rate, S1 and S2 are heard. LUNGS: Clear to auscultation anteriorly and posteriorly ABDOMEN: Soft, nontender, bowel sounds are active EXTREMITIES: no edema. Pulses intact NEUROLOGICAL: Patient mood and affect appropriate. No focal deficit SKIN:Warm and moist (Natasha Dumont) A/P Assessment and Plan (1) Abscess in epidural space of thoracic spine (2) Osteomyelitis of lumbar spine (3) Discitis (4) Murmur, cardiac (5) Diabetes (6) Anemia (7) ESRD (end stage renal disease) on dialysis Plan Brief history 71-year-old male patient with history of MSSA bacteremia, strep sepsis and discitis and septic right shoulder. Presented to the emergency room with complaint of back pain, had MRI done as outpatient showing osteomyelitis and discitis at L1 level. Signs reviewed, patient is afebrile normal trends Labs reviewed Thoracic epidural abscess -Neurosurgery consulted, Dr. Comer input appreciated -S/P CT guided Biopsies of the L1/L2 disc space 10/29 -Continue with empiric antibiotics, vancomycin IV -BC 10/29, + MRSA, continue vanco, Rifampin for 6 week course -continue to follow most recent cultures, pending -Appreciate ID consult and input -Thoracic spine MRI done, inflammatory disc disease consistent with discitis, epidural abscess extending from T3 -T7. No cord compression. -CT-guided biopsy of thoracic epidural abscess 10/31 ESRD on HD -Nephrology consult and input appreciated -HD per schedule, working with case management for set up 3 times a week. Patient was currently on a 4 PM schedule. HTN, stable -Continue Clonidine 0.1 mg by mouth every 6 when necessary for systolic greater than 160 and diastolic greater than 90 Diet controlled diabetes -Accuchecks with low dose ISS Anemia, secondary to chronic kidney disease Monitor CBC Systolic Murmur, stable Continue to monitor SCDs for DVT prophylaxis OOB daily activity as tolerated Cont to follow cultures, pain management Discharge planning, likely to go home with antibiotics as outpatient. Her ID note vancomycin will be a 12 week course. Rifampin will be a 6 week course. Patient does dialysis in outpatient setting and is currently able to drive himself. Possible today Discussed with nurse Discussed with patient Discussed with case management Discussed with Dr. Evans, seen on his behalf (Natasha Dumont) Assessment and Plan pt seen and examined as above dw ID and nephrology about arrangement of abx dw casework supervisor about dc planning and arrangement of abx as outpt dw electrical test engineer about dc planning dw pt meds reviewed dw rn dc home today to follow pcp and ID as outpt as per dr luna he already gave instruction of abx vancomycin dose and timming and labs for dialysis center labs scripts given to pt note for pcp given to pt as well pt understood all (Alejandro Evans MD) Natasha Dumont Nov 05, 2016 09:07 Alejandro Evans MD Nov 05, 2016 10:17
[2016-11-05] MEDS: CALCITRIOL 0.25 MCG CAP PO SCH (09:46)
[2016-11-05] MEDS: RIFAMPIN 150 MG CAP PO SCH (09:47)
[2016-11-05] MEDS: DOCUSATE SODIUM 100 MG CAP PO SCH (09:47)
[2016-11-05] MEDS: VITAMIN B CMPLX/VITC/FOLIC AC CAP PO SCH (09:47)
[2016-11-05] MEDS: POLYETHYLENE GLYCOL 17 GM PKG PO SCH (09:47)
[2016-11-05] MEDS ORDERED: PERC5TAB12 PO (10:27)
[2016-11-05] MEDS ORDERED: SUCR5CHW CHEW (10:27)
[2016-11-05] MEDS ORDERED: RIFA150C2 PO (10:27)
[2016-11-05 12:00] VITALS: BP 130/80; PULSE 98; RESP 18; TEMP 98.5; O2SAT 96
--- NOTE | 2016-11-05 12:15 | HHI.FF ---
Infusion Therapy Location of Infusion Therapy: Dialysis Center Patient Information Patient Weight 99.2 kg Diagnosis: Diagnosis Discitis, epidural abscess thoracic spine MRSA bacteremia Coded Allergies: *MDRO Multi-Drug Resistant Organism (Verified Adverse Reaction, Unknown, ) MRSA PCR screen POSITIVE - 03/13/16 MRSA (blood)-10/29/16 Administer Medication Vancomycin 1 gram IV q 48 hours w/Hemodialysis ,,Fri Stop Treatment: Jan 27, 2017 Additional Information Venous access: Other (AVF) Additional Instructions [x] Peripheral flush and dressing changes per protocol [x] Implanted port and central online content editor: * Implanted port: 10 ml Normal Saline followed by 5 ml Heparin 100 units/ml Heparin flush after each use and monthly to maintain. [] May leave port accessed during therapy. [] May leave peripheral site accessed for duration of therapy. [x] If patient has SOB or respiratory distress, check oxygen saturation. If less than 90% or clinical signs of respiratory distress, administer oxygen at 2 L/min. via nasal cannula and notify physician. [x] Anaphylaxis/Reaction orders: * Stop infusion. * Keep IV line open with saline flush. * Notify physician. * Monitor vital signs every 15 minutes until symptoms resolve. * Check Oxygen saturation; Oxygen at 2 L/min. via nasal cannula if less than 90% or clinical signs of respiratory distress. * Administer diphenhydramine (Benadryl) 25 mg IV STAT, (unless patient has received as pre-med). May repeat once, if necessary. * Solu-Cortef 250 mg IVP over 30-60 seconds, use 100 mg vials for each dissolution. * Epinephrine (1mg/1 ml) 0.3 mg subcutaneously or IVP now with any signs of respiratory distress. * Check with physician for new additional pre-med orders if patient is re- challenged or re-treated. [x] May remove PICC line when treatment complete, after confirming with Physician. [x] If the patient is admitted to the hospital, the ED, or transferred via [facility] , complete transfer form including medication reconciliation order sheet. Laboratory Tests Weekly Labs: CBC w/diff, Creatinine, LFT's (Hepatic function test) (every friday) Angela Farmer MD Nov 05, 2016 12:14
--- NOTE | 2016-11-05 14:49 | HHI.DS ---
Discharge Summary Admission Date Oct 29, 2016 at 14:16 Admitting Diagnosis osteomyelitis of the lumbar spine (1) Abscess in epidural space of thoracic spine Diagnosis: Principal (2) Osteomyelitis of lumbar spine Diagnosis: Principal (3) Discitis Diagnosis: Principal (4) Murmur, cardiac Diagnosis: Secondary (5) Diabetes Diagnosis: Secondary (6) Anemia Diagnosis: Secondary (7) ESRD (end stage renal disease) on dialysis Diagnosis: Secondary Brief History This was a pleasant 71-year-old gentleman with a past medical history which includes high cholesterol, CHF, diabetes mellitus diet controlled, end- stage renal disease with hemodialysis, GERD, hypertension. Patient was sent to the emergency room by his hat lining paster Dr. Freire. Apparently, patient had been having low-grade fevers and back pains for the last few weeks. He had been on vancomycin for the past month. He had an MRI done several days ago which showed osteomyelitis and discitis at level I. Eyes any recent fevers, no chills. He still having some low back pain. Denies any cough, no sputum production. Patient was last admitted to this facility February 2016 after he was found with MSSA bacteremia and required IV antibiotics. Prior to that in 2014, he was found with strep sepsis and discitis as well as septic right shoulder that require arthroplasty. Patient had been evaluated by neurosurgery , Dr. Comer recommended CT-guided biopsy of disc space. He had been started on empiric antibiotics and cultures have been obtained. At this time, patient was going to interventional radiology for biopsy. Patient was hemodynamically stable. He had no other complaints. Patient was admitted for further evaluation and treatment CBC/BMP: 11/02/16 0758 11/02/16 0758 Significant Findings Laboratory Tests Test 11/03/16 07:44 Alanine Aminotransferase LESS THAN 6 (ALT/SGPT) U/L (12-78) Total Protein 6.2 GM/DL (6.4-8.2) Albumin 2.6 GM/DL (3.4-5.0) Imaging Last Impressions Chest X-Ray 11/01/16 0000 Signed Impressions: Service Date/Time: Tuesday, November 01, 2016 19:15 - CONCLUSION: Small right pleural effusion. Mild central pulmonary vascular congestion. Marvin Torres MD Upper Extremity Ultrasound 10/31/16 0000 Signed Impressions: Service Date/Time: October 08:16 - CONCLUSION: 1. Left arm dialysis fistula. Exam is otherwise unremarkable. Alexys Nicolas MD Thoracic Spine MRI 10/31/16 0000 Signed Impressions: Service Date/Time: October 10:15 - CONCLUSION: T3-T4 inflammatory disc disease consistent with discitis. Epidural abscess extending from T3-T7 as described. No significant cord compression is noted. Degenerative disc disease with disc osteophyte complexes causing mild anterior epidural effacement but no significant cord compression. Destructive disc process at L1 to characteristic of discitis and osteomyelitis. Magan Black MD Needle Biopsy CT 10/31/16 0000 Signed Impressions: Service Date/Time: October 15:07 - CONCLUSION: Uncomplicated CT guided biopsy. Magan Black MD Cervical Spine MRI 10/31/16 0000 Signed Impressions: Service Date/Time: , October 31, 2016 10:15 - CONCLUSION: Degenerative disc disease of the cervical spine without evidence of inflammatory destructive disc or vertebral body changes. Bone marrow edema in the T3 vertebral body secondary to the patient's suspected discitis. No evidence of acute disc herniation or focal spinal cord abnormalities. Magan Black MD Needle Biopsy/Aspiration X-Ray 10/29/16 1744 Signed Impressions: Service Date/Time: Saturday, October 29, 2016 17:44 - CONCLUSION: Uncomplicated needle biopsy of the L1/L2 disc space as above. Alexys Nicolas MD PE at Discharge Physical Exam PHYSICAL EXAMINATION GENERAL: This is a well-developed, elderly male who appears to be in no acute distress. He is alert and awake, sitting up in chair HEAD: Normocephalic atraumatic OROPHARYNGEAL: Oropharynx clear NECK: Supple. CARDIAC: Regular rhythm, regular rate, S1 and S2 are heard. LUNGS: Clear to auscultation anteriorly and posteriorly ABDOMEN: Soft, nontender, bowel sounds are active EXTREMITIES: no edema. Pulses intact NEUROLOGICAL: Patient mood and affect appropriate. No focal deficit SKIN:Warm and moist Hospital Course These are the diagnoses that were used to treat this patient during this hospital stay (1) Abscess in epidural space of thoracic spine (2) Osteomyelitis of lumbar spine (3) Discitis (4) Murmur, cardiac (5) Diabetes (6) Anemia (7) ESRD (end stage renal disease) on dialysis Plan Brief history 71-year-old male patient with history of MSSA bacteremia, strep sepsis and discitis and septic right shoulder. Presented to the emergency room with complaint of back pain, had MRI done as outpatient showing osteomyelitis and discitis at L1 level. Vital signs reviewed throughout patient's hospital stay, patient is afebrile normal trends on last day before discharge Labs reviewed throughout hospital stay and treated per his individualized needs. Thoracic epidural abscess -Neurosurgery consulted, Dr. Comer input appreciated -S/P CT guided Biopsies of the L1/L2 disc space 10/29 empiric antibiotics were initiated throughout hospital stay which included, vancomycin IV -BC 10/29, + MRSA, continue vanco, Rifampin for 6 week course -continue to follow most recent cultures, pending negative so far -Appreciate ID consult and input -Thoracic spine MRI done, inflammatory disc disease consistent with discitis, epidural abscess extending from T3 -T7. No cord compression. -CT-guided biopsy of thoracic epidural abscess 10/31 ESRD on HD -Nephrology consult and input appreciated Patient received his hemodialysis during hospital stay, worked with case management when patient was stable for discharge for his home set up -HD per schedule, working with case management for set up 3 times a week. Patient was currently on a 4 PM schedule. HTN, stable, monitored every 4 hours and when necessary throughout hospital stay. Patient did request not to be awake and during the a.m. hours if his vital signs have been stable trends -Continue Clonidine 0.1 mg by mouth every 6 when necessary for systolic greater than 160 and diastolic greater than 90 Diet controlled diabetes -Accuchecks with low dose ISS monitor throughout hospital stay Anemia, secondary to chronic kidney disease, monitored with his labs Monitor CBC Systolic Murmur, stable, no acute changes noted Continue to monitor SCDs for DVT prophylaxis OOB daily activity as tolerated Cont to follow cultures, pain management throughout his hospital stay. During this stay patient was up in the chair and up in his room without acute shortness of breath or unbearable pain Agents appetite was evaluated and monitored throughout stay which included renal needs. Discharge planning, likely to go home with antibiotics as outpatient. Her ID note vancomycin will be a 12 week course. Rifampin will be a 6 week course. Patient does dialysis in outpatient setting and is currently able to drive himself. Dr. 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 sekou pilot plant supervisor about dc planning dw pt meds reviewed dw rn dc home today to follow pcp and ID as outpt as per dr freire he already gave instruction of abx vancomycin dose and timming and labs for dialysis center labs scripts given to pt note for pcp given to pt as well pt understood all these discharge instructions were discussed with patient Pt Condition on Discharge: Good Discharge Disposition: Discharge Home Discharge Instructions DIET: Follow Instructions for: Renal Failure Diet Activities you can perform: Weight Bearing as [place] Follow up Referrals: Infectious Disease - 3 Weeks with bonnie deleon PCP Follow-up - 1 Week New Medications: Oxycodone-Acetaminophen (Percocet) 5-325 mg Tab 1 TAB PO Q6H PRN PAIN #30 Ref 0 TAB Sucroferric Oxyhydroxide (Velphoro) 500 Mg Chew 500 MG CHEW TIDPC High phosphate levels #90 Ref 0 TAB Rifampin (Rifampin) 150 Mg Cap 300 MG PO Q12HR bacterial infection #112 CAP Continued Medications: B-Complex W/ C & Folic Acid (Renal Vitamin) 1 Cap 1 CAP PO DAILY If on dialysis, take after treatment. Nutritional Supplement #30 Ref 0 CAP Calcitriol (Calcitriol) 0.5 Mcg Cap 0.5 MCG PO DAILY Calcium Supplement #30 Ref 0 CAP Cinacalcet (Sensipar) 60 Mg Tab 60 MG PO DAILY@1600 #30 Ref 0 TAB Docusate Sodium (Colace) 100 Mg Cap 100 MG PO BID Constipation #60 Ref 0 CAP Discontinued Medications: Sevelamer Carbonate (Renvela) 800 Mg Tab 3200 MG PO TID Control phosphorous levels #90 Ref 0 TAB Natasha Dumont Nov 05, 2016 14:49
== END 2016-11-05 13:41 | disposition home or self-care (01) | DRG 629 ==
LOC: NEPC 11:22 → NEDA 14:16 → N05A 20:01
PROVIDERS: ADMIT Specialist; ATTEND Specialist
PROC: 0QB03ZX Excision of Lumbar Vertebra, Percutaneous Approach, Diagnostic (ICD-10-PCS; principal; 2016-10-29)
PROC: 5A1D60Z (ICD-10-PCS; 2016-10-30)
PROC: 0PB43ZX Excision of Thoracic Vertebra, Percutaneous Approach, Diagnostic (ICD-10-PCS; 2016-10-31)
DX: E11.69 Type 2 diabetes mellitus with other specified complication (principal); M46.26 Osteomyelitis of vertebra, lumbar region; M86.9 Osteomyelitis, unspecified; G06.1 Intraspinal abscess and granuloma; I13.2 Hypertensive heart and chronic kidney disease with heart failure and with stage 5 chronic kidney disease, or end stage renal disease; Z76.82 Awaiting organ transplant status; N18.6 End stage renal disease; E11.22 Type 2 diabetes mellitus with diabetic chronic kidney disease; D63.1 Anemia in chronic kidney disease; K21.9 Gastro-esophageal reflux disease without esophagitis; E78.00 Pure hypercholesterolemia, unspecified; M46.46 Discitis, unspecified, lumbar region; R01.1 Cardiac murmur, unspecified; E78.4 Other hyperlipidemia; I50.9 Heart failure, unspecified; Z99.2 Dependence on renal dialysis; B95.61 Methicillin susceptible Staphylococcus aureus infection as the cause of diseases classified elsewhere
CPT/HCPCS: 62267; 71010; 72141; 72146; 77002; 77003; 77012; 80048; 80053; 80074; 80076; 80202; 82948; 83605; 85025; 85027; 85610; 85652; 85730; 86140; 86403; 87015; 87040; 87070; 87102; 87116; 87147; 87186; 87205; 87206; 88112; 88304; 88311; 90935; 93005; 93990; 96365; 96374; 96375; 99152; 99153; C1729; C1769; J0690; J2250; J3010; J3370; J7050; Q4081

== ENCOUNTER 2016-11-16 12:31 | Inpatient (IN) | payer MEDICARE, BC ==
[~2016-11-16] VITALS: Ht 182.9 cm; Wt 108.5 kg
[2016-11-16] VITALS (8 sets, daily range): BP systolic 97–137; BP diastolic 54–89; PULSE 66–109; RESP 17–30; TEMP 97.4–98.4; O2SAT 93–100
[~2016-11-16 12:31] MED LIST changes: +EPINEPHrine HCL (1:10,000) 1 MG/10 ML SYRINGE IV ONE; +PERC5TAB12 PO; +RIFA150C2 PO; -SEVEL800 PO; +SUCR5CHW CHEW
--- NOTE | 2016-11-16 12:42 | PD ---
HPI Chief Complaint: Cardiopulmonary Arrest Time Seen by Provider: 12:39 Travel History International Travel<30 days: No Contact w/Intl Traveler<30days: No History of Present Illness HPI The patient 71 years old. He arrives from dialysis where he suddenly became unresponsive. On scene providers performed CPR for approximately 5 minutes. He underwent defibrillation twice and had a return of spontaneous circulation evidently. The patient states he felt sleepy this morning and believes he may have actually fell asleep during dialysis. He does not recall the actual loss of consciousness. EMS reports that on scene he had a blood pressure 127/80 and a heart rate of 110 sinus tach. Occasional PVCs were observed. There is a glucose is 168. The dialysis session was about 50% complete when he became unresponsive and then was sent to the ER. At the time my examination the patient has no medical complaint. PFSH Past Medical History Anemia: Yes Autoimmune Disease: No Anxiety: No Depression: No Cancer: No Cardiovascular Problems: Yes High Cholesterol: Yes Congestive Heart Failure: No Diabetes: Yes (PRE-DIABETIC) Dialysis: Yes Diminished Hearing: No Endocrine: Yes GERD: No Genitourinary: Yes Hepatitis: No Hiatal Hernia: No Hypertension: Yes (hx of ) Immune Disorder: No Implanted Vascular Access Dvce: No Musculoskeletal: No Neurologic: No Psychiatric: No Reproductive: No Respiratory: No Immunizations Current: Yes Renal Failure: Yes ( ) Sleep Apnea: Yes (undiagnosed) Thyroid Disease: No Past Surgical History Abdominal Surgery: Yes (UMBILICAL HERNIA REPAIR) Cardiac Surgery: No Ear Surgery: No Endocrine Surgery: No Eye Surgery: No Genitourinary Surgery: No Gynecologic Surgery: No Oral Surgery: No Pacemaker: No Thoracic Surgery: No Other Surgery: Yes (left arm dialysis shunt) Social History Alcohol Use: Yes (Rarely) Tobacco Use: No Substance Use: No Allergies-Medications (Allergen,Severity, Reaction): Coded Allergies: *MDRO Multi-Drug Resistant Organism (Verified Adverse Reaction, Unknown, ) MRSA PCR screen POSITIVE - 03/13/16 MRSA (blood)-10/29/16 Reported Meds & Prescriptions Reported Meds & Active Scripts Active Velphoro (Sucroferric Oxyhydroxide) 500 Mg Chew 500 Mg CHEW TIDPC Rifampin 150 Mg Cap 300 Mg PO Q12HR Percocet (Oxycodone-Acetaminophen) 5-325 mg Tab 1 Tab PO Q6H PRN Reported Temazepam 30 Mg Cap 30 Mg PO HS PRN Vielka-Jitendra (B-Complex W/ C & Folic Acid) 1 Tab 1 Tab PO DAILY Fish Oil 1000 mg (Erwin-3 Fatty Acids) 1 Cap Cap Unknown Dose PO DAILY Aspirin 325 Mg Tab 325 Mg PO DAILY Colace (Docusate Sodium) 100 Mg Capsule 100 Mg PO DAILY Sensipar (Cinacalcet) 60 Mg Tab 60 Mg PO DAILY@1600 Calcitriol 0.5 Mcg Cap 0.5 Mcg PO DAILY Review of Systems Except as stated in HPI: all other systems reviewed are Neg General / Constitutional: No: Fever, Chills Musculoskeletal: Positive: Other (patient has a chronic recurrent epidural abscess and is currently receiving vancomycin with dialysis) Physical Exam Narrative GENERAL: 71-year-old male well-nourished well-developed speaking full sentences. SKIN: Focused skin assessment warm/dry. HEAD: Atraumatic. Normocephalic. EYES: Pupils equal and round. No scleral icterus. No injection or drainage. ENT: No nasal bleeding or discharge. Mucous membranes pink and moist. NECK: Trachea midline. No JVD. CARDIOVASCULAR: Regular rate and rhythm. No murmur appreciated. RESPIRATORY: No accessory muscle use. Clear to auscultation. Breath sounds equal bilaterally. GASTROINTESTINAL: Abdomen soft, non-tender, nondistended. Hepatic and splenic margins not palpable. MUSCULOSKELETAL: No obvious deformities. No clubbing. No cyanosis. There is a hemodialysis catheter in the left arteriovenous fistula. NEUROLOGICAL: Awake and alert. No obvious cranial nerve deficits. Motor grossly within normal limits. Normal speech. PSYCHIATRIC: Appropriate mood and affect; insight and judgment normal. Data Data Last Documented VS Vital Signs Date Time Temp Pulse Resp B/P Pulse Ox O2 Delivery O2 Flow Rate FiO2 11/16/16 15:16 76 17 108/57 97 Room Air 11/16/16 12:42 98.4 Vital signs reviewed Orders Complete Blood Count With Diff (11/16/16 12:40) Comprehensive Metabolic Panel (11/16/16 12:40) Act Partial Throm Time (Ptt) (11/16/16 12:40) Prothrombin Time / Inr (Pt) (11/16/16 12:40) Magnesium (Mg) (11/16/16 12:40) Ckmb (Isoenzyme) Profile (11/16/16 12:40) Troponin I (11/16/16 12:40) Iv Access Insert/Monitor (11/16/16 12:40) Electrocardiogram (11/16/16 12:40) Ecg Monitoring (11/16/16 12:40) Oximetry (11/16/16 12:40) Oxygen Administration (11/16/16 12:40) Chest, Single Ap (11/16/16 12:40) Sodium Chloride 0.9% Flush (Ns Flush) (11/16/16 12:45) Ventilation & Perfusion Scan (11/16/16 ) Electrocardiogram (11/16/16 14:06) Calcium Gluconate Inj (Calcium Gluconate (11/16/16 14:15) Sodium Polysty Sulfate Liq (Kayexalate L (11/16/16 14:15) Cefepime Inj (Maxipime Inj) (11/16/16 15:45) Vancomycin Inj (Vancomycin Inj) (11/16/16 15:45) Blood Culture (11/16/16 15:32) Admit Order (Ed Use Only) (11/16/16 15:39) Labs Laboratory Tests Test 11/16/16 12:50 White Blood Count 5.5 TH/MM3 Red Blood Count 2.72 MIL/MM3 Hemoglobin 8.9 GM/DL Hematocrit 26.4 % Mean Corpuscular Volume 97.2 FL Mean Corpuscular Hemoglobin 32.6 PG Mean Corpuscular Hemoglobin 33.5 % Concent Red Cell Distribution Width 16.3 % Platelet Count 322 TH/MM3 Mean Platelet Volume 7.7 FL Neutrophils (%) (Auto) 69.3 % Lymphocytes (%) (Auto) 17.3 % Monocytes (%) (Auto) 10.7 % Eosinophils (%) (Auto) 2.0 % Basophils (%) (Auto) 0.7 % Neutrophils # (Auto) 3.8 TH/MM3 Lymphocytes # (Auto) 0.9 TH/MM3 Monocytes # (Auto) 0.6 TH/MM3 Eosinophils # (Auto) 0.1 TH/MM3 Basophils # (Auto) 0.0 TH/MM3 CBC Comment DIFF FINAL Differential Comment Prothrombin Time 11.8 SEC Prothromb Time International 1.1 RATIO Ratio Activated Partial 38.3 SEC Thromboplast Time Sodium Level 140 MEQ/L Potassium Level 3.5 MEQ/L Chloride Level 99 MEQ/L Carbon Dioxide Level 28.4 MEQ/L Anion Gap 13 MEQ/L Blood Urea Nitrogen 26 MG/DL Creatinine 7.24 MG/DL Estimat Glomerular Filtration 8 ML/MIN Rate Random Glucose 171 MG/DL Calcium Level 9.9 MG/DL Magnesium Level 2.2 MG/DL Total Bilirubin 0.5 MG/DL Aspartate Amino Transf 62 U/L (AST/SGOT) Alanine Aminotransferase 28 U/L (ALT/SGPT) Alkaline Phosphatase 97 U/L Total Creatine Kinase 44 U/L Troponin I 1.26 NG/ML Total Protein 7.0 GM/DL Albumin 3.1 GM/DL MDM Medical Decision Making Medical Screen Exam Complete: Yes Emergency Medical Condition: Yes Medical Record Reviewed: Yes Differential Diagnosis Arrhythmia, anemia, electrolyte imbalance, PE, acute coronary syndrome Narrative Course CBC & BMP Diagram 11/16/16 12:50 AST 62 LFTs otherwise normal Troponin 1.26 Last 24 hours Impressions Chest X-Ray 11/16/16 1240 Signed Impressions: Service Date/Time: Wednesday, November 16, 2016 12:41 - CONCLUSION: Basilar airspace disease suspected, mild. This is a change from the previous study. Steve Yates MD EKG reveals on one study atrial fibrillation with rate about 110 Repeat EKG appears to demonstrate P waves with a rate of approximately 100 consistent with a sinus tachycardia Rhythm strip appears irregular. Patient will be admitted to the IM. Case discussed with Dr. Evans for [facility]. Case d/w Dr Craig of cardiology who advised amiodarone, which has been started. Patient has remained comfortable throughout his ER stay. In nuclear medicine the patient became unresponsive. ALCS protocol was initiated and the patient was defibrillated once followed by a ROSC and normal mentation. Pt will be admitted to the thermal intelligence analyst service. Dr Rios of thermal intelligence analyst service present nuclear medicine suite. Diagnosis Primary Impression: Cardiopulmonary arrest with successful resuscitation Additional Impression: Elevated troponin Admitting Information Admitting Physician Requests: Admit Alexys Miller MD Nov 16, 2016 12:42
[2016-11-16] MEDS ORDERED: SODIUM CHLORIDE 0.9% FLUSH 10 ML FLUSH IVF PRN (12:45)
[2016-11-16] MEDS ORDERED: RENATAB5 PO (12:57)
[2016-11-16] MEDS ORDERED: COLA100C PO (12:57)
[2016-11-16] MEDS ORDERED: FISH100020 PO (12:57)
[2016-11-16] MEDS ORDERED: ASPI325T PO (12:57)
[2016-11-16] MEDS ORDERED: TEMA30CA PO (12:57)
--- NOTE | 2016-11-16 12:59 | RADRPT ---
EXAM DATE/TIME: 11/16/2016 12:41 [facility] COMPARISON: CHEST SINGLE AP, November 01, 2016, 19:15. INDICATIONS : Shortness of breath and syncopal episode. MEDICAL HISTORY : None. SURGICAL HISTORY : None. ENCOUNTER: Initial ACUITY: 1 day PAIN SCORE: 0/10 LOCATION: chest FINDINGS: Small right pleural effusion unchanged. Minimal patchy opacities at both lung bases slightly increase d in conspicuity from the previous study. CONCLUSION: Basilar airspace disease suspected, mild. This is a change from the previous study. Steve Yates MD on November 16, 2016 at 12:55 Board Certified Radiologist. This report was verified electronically.
[2016-11-16 13:05] LABS: AUTOMATED NEUTROPHIL # 3.8 TH/MM3 (1.8-7.7); BASOPHIL % 0.7 % (0.0-2.0); EOSINOPHIL # 0.1 TH/MM3 (0-0.4); HEMATOCRIT 26.4 % (39.0-51.0); HEMO FLAGS DIFF FINAL; LYMPH % 17.3 % (9.0-44.0); LYMPHOCYTE # 0.9 TH/MM3 (1.0-4.8); MEAN CELL VOLUME 97.2 FL (80.0-100.0); MEAN CORPUSCULAR HEMOGLOBIN 32.6 PG (27.0-34.0); MEAN CORPUSCULAR HGB CONC 33.5 % (32.0-36.0); MONO % 10.7 % (0.0-8.0); NEUT % 69.3 % (16.0-70.0); PLATELET COUNT 322 TH/MM3 (150-450); RED BLOOD COUNT 2.72 MIL/MM3 (4.50-5.90); RED CELL DISTRIBUTION WIDTH 16.3 % (11.6-17.2); WHITE BLOOD COUNT 5.5 TH/MM3 (4.0-11.0)
[2016-11-16 13:13] LABS: APTT (PATIENT) 38.3 SEC (24.3-30.1); INTERNATIONAL NORMALIZED RATIO 1.1 RATIO; PROTHROMBIN TIME - PATIENT 11.8 SEC (9.8-11.6)
[2016-11-16 13:27] LABS: ANION GAP 13 MEQ/L (5-15); AST (GOT) 62 U/L (15-37); BICARBONATE 28.4 MEQ/L (21.0-32.0); BLOOD UREA NITROGEN 26 MG/DL (7-18); CHLORIDE 99 MEQ/L (98-107); GLOMERULAR FILTRATION RATE 8 ML/MIN (>89); MAGNESIUM 2.2 MG/DL (1.5-2.5); POTASSIUM 3.5 MEQ/L (3.5-5.1); SODIUM (NA) 140 MEQ/L (136-145)
[2016-11-16 13:32] LABS: ALKALINE PHOSPHATASE 97 U/L (45-117); ALT (GPT) 28 U/L (12-78); TOTAL BILIRUBIN ADULT 0.5 MG/DL (0.2-1.0)
[2016-11-16 13:38] LABS: CREATINE KINASE 44 U/L (39-308)
[2016-11-16] MEDS ORDERED: SODIUM POLYSTYRENE SULFONATE SUSP 15 GM/60 ML CUP PO ONE (14:15)
[2016-11-16] MEDS ORDERED: CALCIUM GLUCONATE 10% 1 GM/10 ML VIAL SLOW IVP ONE (14:15)
[2016-11-16] MEDS ORDERED: CEFEPIME INJ 1,000 MG in SODIUM CHLORIDE 0.9% INJ 100 ML IV ONE (15:45)
[2016-11-16] MEDS ORDERED: VANCOMYCIN INJ 1,000 MG in SODIUM CHLOR 0.9% 250 ML INJ 250 ML IV ONE (15:45)
[2016-11-16] MEDS ORDERED: AMIODARONE INJ 900 MG in D5W 500 ML (EXCEL BAG) 482 ML IV SCH (16:00)
[2016-11-16] MEDS ORDERED: MAGNESIUM HYDROXIDE SUSP 30 ML CUP PO PRN (16:15)
[2016-11-16] MEDS ORDERED: oxyCODONE/ACETAMINOPHEN 5 MG/325 MG TAB PO PRN (16:15)
[2016-11-16] MEDS ORDERED: SENNOSIDES 8.6 MG TAB PO PRN (16:15)
[2016-11-16] MEDS ORDERED: AMIODARONE INJ 150 MG in DEXTROSE 5% IN WATER 100ML INJ 97 ML IV ONE ×2 (16:15)
[2016-11-16] MEDS ORDERED: TEMAZEPAM 15 MG CAP PO PRN (16:15)
[2016-11-16] MEDS ORDERED: BISACODYL 10 MG SUPP RECTAL PRN (16:15)
[2016-11-16] MEDS ORDERED: ONDANSETRON HCL 4 MG/2 ML VIAL IVP PRN (16:15)
[2016-11-16] MEDS ORDERED: NALOXONE HCL 0.4 MG/ML AMP IV PRN (16:15)
[2016-11-16] MEDS ORDERED: LACTULOSE SYRUP 20 GM/30 ML CUP PO PRN (16:15)
[2016-11-16] MEDS ORDERED: SODIUM CHLORIDE 0.9% FLUSH 10 ML FLUSH IV FLUSH PRN (16:15)
--- NOTE | 2016-11-16 16:48 | MB ---
cc: VALERY ART M.D., JAWED GOLDSMITH, ALAN S. M.D. HORENSTEIN, JOSHUA A. MD DATE OF CONSULTATION: 11/16/2016. REASON FOR CONSULTATION: Cardiac arrest. HISTORY OF PRESENT ILLNESS: I have reviewed office and hospital records. The patient is a pleasant 71-year-old gentleman who I am seeing for cardiac arrest. The patient has end-stage renal disease and is on dialysis. He had been considered for renal transplant but this is on hold because of a recent infection. Transesophageal echocardiogram last month showed preserved ventricular function without any vegetations or significant valvular disease and SPECT nuclear 07/05 was normal with a fixed inferior defect. The patient was in dialysis today when he was noted to be unresponsive. Apparently he was not on a monitor. An AED was used to the did have a shockable rhythm requiring two shocks and CPR. He does not remember any of this. He has no cardiac symptoms now. He does note that he might have been perhaps a little short of breath last night but really not out of the ordinary and has no cardiac symptoms otherwise. PAST MEDICAL HISTORY: 1. Cardiac as above. 2. Staph aureus epidural abscess and right shoulder abscess 03/03 with shoulder surgery. He had recurrent back pain a month ago was found to have L1 osteomyelitis with MRSA. He has been on vancomycin and rifampin as an outpatient. His back pain is feeling better. 3. Hypertension 4. Pre diabetes 5. Left AV fistula. 6. End-stage renal disease. 7. Left wrist surgery 8. Umbilical hernia repair. SOCIAL HISTORY: He is single and does not smoke and rarely drinks. FAMILY HISTORY: Remarkable for father with an ID. ALLERGIES: NONE. MEDICATIONS: Medication list reviewed. REVIEW OF SYSTEMS: Review of systems only remarkable for the mild back discomfort but is otherwise unremarkable. PHYSICAL EXAMINATION: GENERAL: On exam, he is alert and oriented times three and resting comfortably. VITAL SIGNS: Afebrile. The vital signs are stable with borderline heart rate. SKIN: There are no xanthelasma and oropharyngeal mucosa normal. CHEST: Clear. CARDIOVASCULAR: JVD normal. S1, S2 with a 2/6 early peaking systolic ejection murmur at the base, which he states he has had. ABDOMEN: Benign except for a scar. EXTREMITIES: No cyanosis, clubbing or edema. PULSES: Carotids without bruits. There is a left AV fistula with 2+ pulse. Right radial 2+. Femorals 2+ without bruits. Pedals 1+. NEUROLOGIC: He was not ambulated. EKGS: EKG and monitor shows perhaps slow atrial flutter with borderline controlled heart rate and borderline nonspecific intraventricular conduction defect. IMAGING STUDIES: Chest x-ray: Mild basilar air disease. LABORATORY DATA: He is anemic with hematocrit 26.4, which he has had before. PT/PTT normal. Potassium 3.5, creatinine 7.24. Troponin 1.26 which he has had before and a CPK of 44 with minimally elevated liver functions. PROBLEMS: 1. Cardiac arrest. 2. Paroxysmal atrial flutter -- apparently in the last he was told he might have had atrial fibrillation or flutter, but this was not documented. 3. Recent recurrent disc osteomyelitis. 4. End-stage renal disease. 5. Mildly elevated troponin - nonspecific. 6. Pre-diabetes. RECOMMENDATIONS: 1. Continue home medication. 2. DVT prophylaxis. 3. I will hold anticoagulation at this point given lack of chest pain and the fact that he is significantly anemic. 4. He has been placed on an amiodarone drip. 5. I will consult Dr. Bucio (I have spoken with him) to see the patient tomorrow, assume care and possibly pursue cardiac catheterization. This is a very difficult situation as the patient does have an active infection and bypass surgery would probably be out of the question. All questions have been answered. MD MOHSEN Choi/JOSE MIGUEL /4:21 PM /4:41 PM MARI
[2016-11-16] MEDS ORDERED: GLUCAGON 1 MG/ML VIAL OTHER PRN (17:30)
[2016-11-16] MEDS ORDERED: DEXTROSE 50% IN WATER 50 ML VIAL(D50) IV PRN (17:30)
--- NOTE | 2016-11-16 17:36 | RADRPT ---
EXAM DATE/TIME: 11/16/2016 16:52 [facility] COMPARISON: No previous studies available for comparison. INDICATIONS : Dyspnea. DOSE: 8.5 mCi Tc99m Labeled MAA IV MEDICAL HISTORY : Hypertension. Renal failure, chronic. SURGICAL HISTORY : Hernia repair. ENCOUNTER: Initial ACUITY: 1 day PAIN SCALE: 0/10 LOCATION: chest TECHNIQUE: The patient was injected with MAA, and eight-view perfusion scan was performed. FINDINGS: PERFUSION: There is a homogenous pattern of radiotracer uptake throughout both lungs. CONCLUSION: Negative for pulmonary embolism. Kei Gu MD on November 16, 2016 at 17:32 Board Certified Radiologist. This report was verified electronically.
--- NOTE | 2016-11-16 18:00 | MH ---
cc: WILLY EVANS DATE OF ADMISSION: 11/16/2016 REASON FOR ADMISSION: Cardiopulmonary arrest while in the dialysis center. TRAVEL IN THE LAST THIRTY DAYS: None, according to the record. HISTORY OF PRESENT ILLNESS: This is a 71-year-old male who has been on dialysis for approximately seven years. He was diagnosed with end-stage renal disease and was initially placed on the kidney transplant list. The patient had to be removed from that list very recently due to some infection in his spine. He states that he also had a stress echocardiogram done in June of 2016 for his workup related to the kidney transplant. The patient denies any type of chest pain. He does note some shortness of breath last night before he went to bed. He went on for his dialysis today and approximately alf through the dialysis, he became unresponsive. According to the record, the patient was defibrillated twice and CPR was done for approximately five minutes. He regained spontaneous circulation and was sent to the emergency room for further testing. The patient was alert and oriented, cooperative and answering simple questions. He did not remember any of the event that happened at dialysis. He denies any headache. He has no numbness or tingling and no weakness in his extremities. Amiodarone drip was started and the patient was sent over to have a VQ scan where he arrested for the second time. CPR was initiated. The patient was defibrillated times one back into a sinus tachycardia rhythm with unifocal PVCs noted. The patient currently is again alert, oriented. He did remember this time the sensation of feeling like he was passing out before his unresponsiveness. Currently the patient has one-on-one nursing care and there is an attempt being made to complete his VQ scan before admission to the coronary intensive care unit. The patient has no significant history of heart disease. PAST MEDICAL HISTORY: His past medical history according to the record: 1. Anemia. 2. End-stage renal disease approximately seven years on hemodialysis. 3. Hyperlipidemia. 4. Pre-diabetes. 5. Hypertension. 6. According to the record, undiagnosed sleep apnea. PAST SURGICAL HISTORY: 1. Umbilical hernia repair. 2. Left arm dialysis shunt. ALLERGIES: 1. MULTIDRUG-RESISTANT ORGANISM. 2. HE IS POSITIVE FOR MRSA PCR SCREEN AND HE HAS DOCUMENTED MRSA IN HIS BLOOD FROM OCTOBER 29, 2016. ACTIVE MEDICATIONS: 1. Rifampin. 2. Percocet. 3. Temazepam. 4. Vitamin B-complex with folic acid. 5. Fish oil. 6. Aspirin. 7. Velphoro. 8. Colace. 9. Sensipar. 10. Calcium. SOCIAL HISTORY: According to the record, rare alcohol use. No tobacco use. No illicit drug use. REVIEW OF SYSTEMS: Limited secondary to the patient's recent cardiopulmonary arrest. Positives noted are some shortness of breath initially noted last night before he went to bed. Denies any chest pain. Denies any numbness or tingling in his extremities. Other systems negative or unremarkable. PHYSICAL EXAMINATION: VITAL SIGNS: Currently temperature was 98.4, pulse 68, respirations 21, blood pressure 121/74, 02 saturation 96%. He was currently on room air but now on nasal cannula at 2 liters. GENERAL: Well-developed white male looks to be his stated age resting on a stretcher currently alert and able to respond and give symptomatic information. SKIN: Skin color is lindy. The mucous membranes are pale-pink. HEAD, EYES, EARS, NOSE, THROAT: Pupils equal, round and reactive to light and accommodation. NECK: The neck is supple. CARDIOVASCULAR: S1 and S2. Heart sounds are distant but a mild murmur is detected. He has a trace of edema in his lower extremities bilaterally. They are warm to touch. PULMONARY: Lung sounds essentially clear anteriorly and posteriorly with no wheezes or rhonchi. He does have some diminished sounds in his bases. ABDOMEN: Flat, soft, nontender, nondistended. Bowel sounds are soft but active. MUSCULOSKELETAL: Moving his extremities with purpose. He has equal hand placement interviewer. No obvious deformities. NEUROLOGIC: He is now alert, understands where he is and can give symptomatic information on recent events. PSYCHIATRIC: Mood and affect are appropriate. DIAGNOSTIC DATA: WBC count is 5.5, RBCs 2.72, hemoglobin 8.9, hematocrit 26.4. The differential shows elevated monocyte count at 10.7. PT and INR is 1.1. Sodium 140, potassium 3.5, chloride 99, carbon dioxide 28.4, anion gap 13, BUN 26, creatinine 7.24. GFR 8. Random glucose 171. Initial troponin was 1.26. Albumin 3.1. IMAGING STUDIES: Chest x-ray has basilar airspace disease. This is a change from his previous study. ASSESSMENT: 1. Cardiopulmonary arrest x2 with successful resuscitation. One event was in the field at the dialysis center and the other event was here in the radiology department during his emergency room stay. 2. End-stage renal disease on hemodialysis. 3. History of hypertension. 4. Anemia. 5. Pre-diabetes. 6. Dysrhythmias. 7. Rule out myocardial infarction. PLAN: 1. Admit inpatient status. 2. Will monitor his vital signs q. 1-4 as warranted based on his medications. 3. His home medications have been reviewed and continued as needed. 4. 02 therapy. 5. Continuous ECG monitoring. 6. He received a dose of Cefepime and Vancomycin in the emergency room. 7. Amiodarone IV was started. A bolus was given and drip was started. 8. Consult cardiology for his expert opinion. 9. SCDs for DVT prophylaxis. 10. PRN medications for pain, nausea, bowel regimen. 11. MRSA PCR surveillance. Will need contact isolation. The patient is full code, full aggressive care. We will continue to follow. I spoke to Dr. Evans and updated him on the patient's condition. We will also consult the intensivists for their expert care during the cardiac intensive care stay. Dictated by NATASHA Nettles. Willy Evans MD JP/JOSE MIGUEL /5:19 PM /5:40 PM Patient was seen and examined yesterday in the ER as above [id number] time spent with patient Chart was reviewed and some of all records were reviewed Discussed with ER physician in detail Discussed with patient Plan of care discussed with STONE CRUSHER OPERATOR in detail Discussed with band instrument repairer later on as well Appreciate cardiology input and help Condition critical prognosis guarded MTDD
--- NOTE | 2016-11-16 18:06 | PD.CONS ---
[facility] Service Critical Care Medicine Consult Requested By Dr. Evans Reason for Consult Recurrent Cardiac arrest Primary Care Physician Andres Alvarenag MD (Paul) History of Present Illness History of Present Illness HPI 71 years old male with ESRD on HD who was brought to ER from dialysis where he suddenly became unresponsive. On scene providers performed CPR for approximately 5 minutes. He underwent defibrillation twice and had a return of spontaneous circulation per ER documentation. The patient states he felt sleepy this morning and believes he may have actually fell asleep during dialysis. He does not recall the actual loss of consciousness. EMS reports that on scene he had a blood pressure 127/80 and a heart rate of 110 sinus tach. Occasional PVCs were observed. FS Glucose was 168. The dialysis session was about 50% complete when he became unresponsive and then was sent to the ER. On evaluation in the ER patient was completely asymptomatic without any chest pain. He was admitted by [facility] and was evaluated by Dr. Craig from cardiology. Patient was initiated on amiodarone drip and subsequently proceeded for VQ scan where he had another episode of V. tach arrest, CODE BLUE cardiac arrest code was activated. Patient was shocked out of the V. tach had about 2.5 minutes of CPR at that time. Subsequently he was transported to [facility] where I evaluated him immediately following his arrival. At that time patient was awake and alert and denied any chest pain or shortness of breath. He says that he passed out and does not recollect any other events. Shortly following patient's arrival to ICU he had a third episode where he became unresponsive and went into V. tach arrest. CPR/ACLS protocol initiated, patient converted spontaneously to sinus rhythm prior to defibrillation and became responsive. He denied any chest pain or shortness of breath following regaining of consciousness. Patient was given amiodarone 300 mg IV bolus following third episode of V. tach along with 2 g of magnesium sulfate IV push as well as 1 g of calcium chloride. Discussed with Dr. Craig followed by Dr. Issac Bucio from cardiology-Dr. Bucio planning cardiac catheterization. Patient is being treated with antibiotics for L1 osteomyelitis/ epidural abscess with rifampin and IV vancomycin. PFSH Past Medical History Anemia: Yes Autoimmune Disease: No Anxiety: No Depression: No Cancer: No Cardiovascular Problems: Yes High Cholesterol: Yes Congestive Heart Failure: No Diabetes: Yes (PRE-DIABETIC) Dialysis: Yes Diminished Hearing: No Endocrine: Yes GERD: No Genitourinary: Yes Hepatitis: No Hiatal Hernia: No Hypertension: Yes (hx of ) Immune Disorder: No Implanted Vascular Access Dvce: No Musculoskeletal: No Neurologic: No Psychiatric: No Reproductive: No Respiratory: No Immunizations Current: Yes Renal Failure: Yes ( ) Sleep Apnea: Yes (undiagnosed) Thyroid Disease: No Past Surgical History Abdominal Surgery: Yes (UMBILICAL HERNIA REPAIR) Cardiac Surgery: No Ear Surgery: No Endocrine Surgery: No Eye Surgery: No Genitourinary Surgery: No Gynecologic Surgery: No Oral Surgery: No Pacemaker: No Thoracic Surgery: No Other Surgery: Yes (left arm dialysis shunt) Social History Alcohol Use: Yes (Rarely) Tobacco Use: No Substance Use: No Allergies-Medications (Allergen,Severity, Reaction): Coded Allergies: *MDRO Multi-Drug Resistant Organism (Verified Adverse Reaction, Unknown, ) MRSA PCR screen POSITIVE - 03/13/16 MRSA (blood)-10/29/16 Reported Meds & Prescriptions Reported Meds & Active Scripts Active Velphoro (Sucroferric Oxyhydroxide) 500 Mg Chew 500 Mg CHEW TIDPC Rifampin 150 Mg Cap 300 Mg PO Q12HR Percocet (Oxycodone-Acetaminophen) 5-325 mg Tab 1 Tab PO Q6H PRN Reported Temazepam 30 Mg Cap 30 Mg PO HS PRN Vielka-Jitendra (B-Complex W/ C & Folic Acid) 1 Tab 1 Tab PO DAILY Fish Oil 1000 mg (Sigourney-3 Fatty Acids) 1 Cap Cap Unknown Dose PO DAILY Aspirin 325 Mg Tab 325 Mg PO DAILY Colace (Docusate Sodium) 100 Mg Capsule 100 Mg PO DAILY Sensipar (Cinacalcet) 60 Mg Tab 60 Mg PO DAILY@1600 Calcitriol 0.5 Mcg Cap 0.5 Mcg PO DAILY Review of Systems Except as stated in HPI: all other systems reviewed are Neg General / Constitutional: No: Fever, Chills Musculoskeletal: Positive: Other (patient has a chronic recurrent epidural abscess and is currently receiving vancomycin with dialysis) Review of Systems ROS Limitations: Clinical Condition Physical Exam Vital Signs Vital Signs Date Time Temp Pulse Resp B/P Pulse Ox O2 Delivery O2 Flow Rate FiO2 11/16/16 17:30 100 Non-Rebreather 10.00 11/16/16 16:23 68 21 121/74 96 Room Air 11/16/16 15:16 76 17 108/57 97 Room Air 11/16/16 15:10 76 17 97/54 97 Room Air 11/16/16 12:42 98.4 109 19 137/76 100 Room Air 11/16/16 12:35 98.4 109 23 100 Physical Exam Physical Exam Narrative GENERAL: 71-year-old male well-nourished well-developed speaking full sentences. SKIN: Focused skin assessment warm/dry. HEAD: Atraumatic. Normocephalic. EYES: Pupils equal and round. No scleral icterus. No injection or drainage. ENT: No nasal bleeding or discharge. Mucous membranes pink and moist. NECK: Trachea midline. No JVD. CARDIOVASCULAR: Regular rate and rhythm. No murmur appreciated. RESPIRATORY: No accessory muscle use. Clear to auscultation. Breath sounds equal bilaterally. GASTROINTESTINAL: Abdomen soft, non-tender, nondistended. Hepatic and splenic margins not palpable. MUSCULOSKELETAL: No obvious deformities. No clubbing. No cyanosis. Left arteriovenous fistula. NEUROLOGICAL: Awake and alert. No obvious cranial nerve deficits. Motor grossly within normal limits. Normal speech. PSYCHIATRIC: Appropriate mood and affect; insight and judgment normal. Laboratory Laboratory Tests Test 11/16/16 12:50 White Blood Count 5.5 Red Blood Count 2.72 Hemoglobin 8.9 Hematocrit 26.4 Mean Corpuscular Volume 97.2 Mean Corpuscular Hemoglobin 32.6 Mean Corpuscular Hemoglobin 33.5 Concent Red Cell Distribution Width 16.3 Platelet Count 322 Mean Platelet Volume 7.7 Neutrophils (%) (Auto) 69.3 Lymphocytes (%) (Auto) 17.3 Monocytes (%) (Auto) 10.7 Eosinophils (%) (Auto) 2.0 Basophils (%) (Auto) 0.7 Neutrophils # (Auto) 3.8 Lymphocytes # (Auto) 0.9 Monocytes # (Auto) 0.6 Eosinophils # (Auto) 0.1 Basophils # (Auto) 0.0 CBC Comment DIFF FINAL Differential Comment Prothrombin Time 11.8 Prothromb Time International 1.1 Ratio Activated Partial 38.3 Thromboplast Time Sodium Level 140 Potassium Level 3.5 Chloride Level 99 Carbon Dioxide Level 28.4 Anion Gap 13 Blood Urea Nitrogen 26 Creatinine 7.24 Estimat Glomerular Filtration 8 Rate Random Glucose 171 Calcium Level 9.9 Magnesium Level 2.2 Total Bilirubin 0.5 Aspartate Amino Transf 62 (AST/SGOT) Alanine Aminotransferase 28 (ALT/SGPT) Alkaline Phosphatase 97 Total Creatine Kinase 44 Troponin I 1.26 Total Protein 7.0 Albumin 3.1 Date/Time Procedure Status Source Growth 11/16/16 16:05 Aerobic Blood Culture Received Blood Peripheral Pending 11/16/16 16:05 Anaerobic Blood Culture Received Blood Peripheral Pending Result Diagram: 11/16/16 1250 11/16/16 1250 Imaging Last Impressions Chest X-Ray 11/16/16 1240 Signed Impressions: Service Date/Time: Friday, November 16, 2016 12:41 - CONCLUSION: Basilar airspace disease suspected, mild. This is a change from the previous study. Steve Yates MD Assessment and Plan Assessment and Plan 71-year-old male with: Recurrent ventricular tachycardia Elevated troponin End-stage renal disease on hemodialysis L1 osteomyelitis/epidural abscess status on IV vancomycin/rifampin Hypertension Prediabetes Anemia Plan: Neuro: Follow neuro status. Cardiovascular: 3 episodes of V. tach arrest status post CPR/ACLS. Patient has been evaluated by cardiology and has been loaded with amiodarone which will be continued as drip. Given magnesium sulfate 2 g IV and calcium chloride 1 g IV following third episode of V. tach. Discussed with Dr. Issac Bucio and Dr. Craig from cardiology. Dr. Bucio planning cardiac catheterization now for further evaluation. Serial cardiac enzymes. Continue ASA Pulmonary: Continue supplemental O2. Adequately protecting airway at this time. If he continues to have the current V. tach may require endotracheal intubation. GI/liver: Nothing by mouth for now Renal/: Underwent hemodialysis today. Nephrology consult to continue hemodialysis while in hospital. Strict intake output, monitor and replete electrolytes, follow BUN/creatinine. ID: Continue IV vancomycin and rifampin for L1 osteomyelitis/epidural abscess. We'll consult ID for further evaluation. Endocrine: SSI for glycemic control as needed Prophylaxis: SCDs, subcutaneous heparin/Lovenox if okay with cardiology following cardiac catheterization. Time spent on critical care excluding procedures 60 minutes Jarrett Moreno MD Nov 16, 2016 18:06
[2016-11-16] MEDS ORDERED: SUCROFERRIC OXYHYDROXIDE 500 MG CHEW SCH (18:30)
[2016-11-16] MEDS ORDERED: ASPIRIN 81 MG CHEW TAB ONE (18:42)
[2016-11-16] MEDS ORDERED: MIDAZOLAM HCL 2 MG/2 ML VIAL ONE (18:47)
[2016-11-16] MEDS ORDERED: HEPARIN-NS/PF INJ 500 ML ONE (18:51)
[2016-11-16 19:34] LABS: I-STAT POTASSIUM 3.4 MMOL/L (3.5-4.9)
[2016-11-16 19:37] LABS: MAGNESIUM 2.8 MG/DL (1.5-2.5)
[2016-11-16] MEDS ORDERED: HEPARIN SODIUM - IV 10,000 UNITS/10 ML VIAL ONE (19:40)
[2016-11-16] MEDS ORDERED: NITROGLYCERIN-DEXTROSE INJ 250 ML ONE (19:40)
[2016-11-16] MEDS ORDERED: METOPROLOL TARTRATE 5 MG/5 ML VIAL ONE (19:45)
[2016-11-16 20:07] LABS: AUTOMATED NEUTROPHIL # 9.8 TH/MM3 (1.8-7.7); BASOPHIL % 0.4 % (0.0-2.0); EOSINOPHIL % 0.4 % (0.0-4.0); HEMO FLAGS DIFF FINAL; LYMPH % 4.4 % (9.0-44.0); LYMPHOCYTE # 0.5 TH/MM3 (1.0-4.8); MEAN CELL VOLUME 96.7 FL (80.0-100.0); MEAN CORPUSCULAR HEMOGLOBIN 31.8 PG (27.0-34.0); MEAN CORPUSCULAR HGB CONC 32.9 % (32.0-36.0); MONO % 6.4 % (0.0-8.0); NEUT % 88.4 % (16.0-70.0); PLATELET COUNT 300 TH/MM3 (150-450); RED BLOOD COUNT 2.59 MIL/MM3 (4.50-5.90); RED CELL DISTRIBUTION WIDTH 15.6 % (11.6-17.2); WHITE BLOOD COUNT 11.1 TH/MM3 (4.0-11.0)
[2016-11-16 20:16] LABS: APTT (PATIENT) 25.9 SEC (24.3-30.1); PROTHROMBIN TIME - PATIENT 11.5 SEC (9.8-11.6)
--- NOTE | 2016-11-16 20:24 | PD.CONS ---
History of Present Illness Service CT Surgery Consult Requested By Dr. Bucio Reason for Consult Ventricular fibrillation arrest, multivessel CAD Primary Care Physician Andres Alvarenga MD (Paul) Diagnoses: (1) Elevated troponin I level (2) Bacteremia (3) ESRD (end stage renal disease) on dialysis (4) Cardiopulmonary arrest with successful resuscitation (5) Aortic stenosis (6) 3-vessel coronary artery disease (7) Non-STEMI (non-ST elevated myocardial infarction) (8) Coronary aneurysm History of Present Illness 71 y/o male presented with cardiac arrest during dialysis. He was successfully resuscitated and emergently taken to the ED. He experienced a second arrest and was resuscitated ~5:30 PM. He denies chest pain, nausea, dyspnea, diaphoresis, palpitations. He was emergently taken to the [facility] where he was found to have 3 vessel CAD with a large aneurysm of a diagonal vessel. The patient has numerous comorbidities including dialysis dependent renal failure with recent sepsis for which he is on IV Vancomycin. He is being considered for CABG and may also have aortic valve disease. He denies a prior cardiac history except a heart murmur for which he has been followed by Dr. Nuñez. Review of Systems ROS Limitations: Clinical Condition Constitutional: COMPLAINS OF: Fatigue, DENIES: Diaphoretic episodes, Fever, Weight gain, Weight loss, Chills, Dizziness, Change in appetite, Night Sweats Endocrine: DENIES: Heat/cold intolerance, Polydipsia, Polyuria, Polyphagia Eyes: DENIES: Blurred vision, Diplopia, Eye inflammation, Eye pain, Vision loss , Photosensitivity, Double Vision Ears, nose, mouth, throat: DENIES: Tinnitus, Hearing loss, Vertigo, Nasal discharge, Oral lesions, Throat pain, Hoarseness, Ear Pain, Running Nose, Epistaxis, Sinus Pain, Toothache, Odynophagia Respiratory: DENIES: Apneas, Cough, Snoring, Wheezing, Hemoptysis, Sputum production, Shortness of breath Cardiovascular: DENIES: Chest pain, Palpitations, Syncope, Dyspnea on Exertion , PND, Lower Extremity Edema, Orthopnea, Claudication Gastrointestinal: DENIES: Abdominal pain, Black stools, Bloody stools, Constipation, Diarrhea, Nausea, Vomiting, Difficulty Swallowing, Anorexia Genitourinary: DENIES: Sexual dysfunction, Urinary frequency, Urinary incontinence, Urgency, Hematuria, Dysuria, Nocturia, Penile Discharge, Testicular Pain, Testicular Swelling Musculoskeletal: DENIES: Joint pain, Muscle aches, Stiffness, Joint Swelling, Back pain, Neck pain Integumentary: DENIES: Abnormal pigmentation, Nail changes, Pruritus, Rash Hematologic/lymphatic: COMPLAINS OF: Bruising Immunologic/allergic: DENIES: Eczema, Urticaria Neurologic: DENIES: Abnormal gait, Headache, Localized weakness, Paresthesias, Seizures, Speech Problems, Tremor, Poor Balance Psychiatric: DENIES: Anxiety, Confusion, Mood changes, Depression, Hallucinations, Agitation, Suicidal Ideation, Homicidal Ideation, Delusions He has chronic anemia related to renal failure Past Family Social History Allergies: Coded Allergies: *MDRO Multi-Drug Resistant Organism (Verified Adverse Reaction, Unknown, ) MRSA PCR screen POSITIVE - 03/13/16 MRSA (blood)-10/29/16 Past Medical History ESRD HTN Type 2 DM MRSA sepsis 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 Mason Active Ordered Medications Current Medications Medications (Trade) Dose Ordered Sig/Zenobia Route Start Time Stop Time Status Last Admin Amiodarone HCl 450 mg/Dextrose 250 ml @ 0 mls/hr CONTINUOUS IV 11/16/16 16:15 11/17/16 02:43 (NS 1000 ml Inj) 1,000 ml @ 15 mls/hr Q24H IV 11/16/16 17:00 11/16/16 21:17 (NS Flush) 2 ml UNSCH PRN IV FLUSH 11/16/16 16:15 (NS Flush) 2 ml BID IV FLUSH 11/16/16 21:00 11/17/16 09:49 (Tylenol) 650 mg Q4H PRN PO 11/16/16 16:15 (Narcan Inj) 0.4 mg UNSCH PRN IV 11/16/16 16:15 (Indu-Colace) 1 tab BID PO 11/16/16 21:00 11/17/16 09:49 (Milk Of Magnesia Liq) 30 ml Q12H PRN PO 11/16/16 16:15 (Senokot) 17.2 mg Q12H PRN PO 11/16/16 16:15 (Dulcolax Supp) 10 mg DAILY PRN RECTAL 11/16/16 16:15 (Lactulose Liq) 30 ml DAILY PRN PO 11/16/16 16:15 (Aspirin) 325 mg DAILY PO 11/17/16 09:00 11/17/16 09:49 (Rocaltrol) 0.5 mcg DAILY PO 11/17/16 09:00 11/17/16 09:48 (Percocet 5-325 Mg) 1 tab Q6H PRN PO 11/16/16 16:15 (Rifampin) 300 mg Q12HR PO 11/16/16 21:00 11/17/16 09:49 (Restoril) 30 mg HS PRN PO 11/16/16 16:15 (Nephrocaps) 1 cap DAILY PO 11/17/16 09:00 11/17/16 09:48 (Sensipar) 60 mg DAILY@16 PO 11/17/16 16:00 Patient Own Medication PT OWN MED:VELPHORO(SUCROFERRIC OXYHYDROXIDE)500... TIDAC OTHER 11/17/16 08:00 Hold (D50w (Vial) Inj) 50 ml UNSCH PRN IV 11/16/16 17:30 (Glucagon Inj) 1 mg UNSCH PRN OTHER 11/16/16 17:30 (Heparin Inj) 5,000 units UNSCH PRN IV 11/17/16 02:30 Heparin Sodium (Porcine) 2500 units 2,500 units UNSCH PRN IV 11/17/16 02:30 11/17/16 04:55 Heparin Sodium/ Dextrose 250 ml @ 0 mls/hr TITRATE IV 11/16/16 20:30 11/16/16 21:19 (Nitroglycerin-Dextrose Inj) 250 ml @ 0 mls/hr TITRATE IV 11/16/16 20:30 Ondansetron HCl 4 mg 4 mg Q4H PRN IV 11/16/16 20:30 (NS 250 ml Inj) 250 ml @ 15 mls/hr ONCE ONCE IV 11/17/16 07:00 11/17/16 23:39 11/17/16 08:51 (Lopressor) 25 mg BID PO 11/17/16 21:00 Current Medications Medications (Trade) Dose Ordered Sig/Zenobia Route Start Time Stop Time Status Last Admin Amiodarone HCl 450 mg/Dextrose 250 ml @ 0 mls/hr CONTINUOUS IV 11/16/16 16:15 (NS 1000 ml Inj) 1,000 ml @ 50 mls/hr Q20H IV 11/16/16 17:00 (NS Flush) 2 ml UNSCH PRN IV FLUSH 11/16/16 16:15 (NS Flush) 2 ml BID IV FLUSH 11/16/16 21:00 (Tylenol) 650 mg Q4H PRN PO 11/16/16 16:15 (Zofran Inj) 4 mg Q6H PRN IVP 11/16/16 16:15 11/16/16 18:27 (Narcan Inj) 0.4 mg UNSCH PRN IV 11/16/16 16:15 (Indu-Colace) 1 tab BID PO 11/16/16 21:00 (Milk Of Magnesia Liq) 30 ml Q12H PRN PO 11/16/16 16:15 (Senokot) 17.2 mg Q12H PRN PO 11/16/16 16:15 (Dulcolax Supp) 10 mg DAILY PRN RECTAL 11/16/16 16:15 (Lactulose Liq) 30 ml DAILY PRN PO 11/16/16 16:15 (Aspirin) 325 mg DAILY PO 11/17/16 09:00 (Rocaltrol) 0.5 mcg DAILY PO 11/17/16 09:00 (Percocet 5-325 Mg) 1 tab Q6H PRN PO 11/16/16 16:15 (Rifampin) 300 mg Q12HR PO 11/16/16 21:00 (Restoril) 30 mg HS PRN PO 11/16/16 16:15 (Nephrocaps) 1 cap DAILY PO 11/17/16 09:00 (Sensipar) 60 mg DAILY@16 PO 11/17/16 16:00 Patient Own Medication PT OWN MED:VELPHORO(SUCROFERRIC OXYHYDROXIDE)500... 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 Denies tobacco, ETOH abuse Physical Exam Vital Signs Vital Signs Date Time Temp Pulse Resp B/P Pulse Ox O2 Delivery O2 Flow Rate FiO2 11/16/16 18:13 100 Nasal Cannula 5.00 11/16/16 17:30 97.7 102 30 129/89 93 11/16/16 17:30 100 Non-Rebreather 10.00 11/16/16 16:23 68 21 121/74 96 Room Air 11/16/16 15:16 76 17 108/57 97 Room Air 11/16/16 15:10 76 17 97/54 97 Room Air 11/16/16 12:42 98.4 109 19 137/76 100 Room Air 11/16/16 12:35 98.4 109 23 100 Physical Exam GENERAL: This is a well-nourished, well-developed patient, in no apparent distress. SKIN: No rashes, ecchymoses or lesions. Cool and dry. HEAD: Atraumatic. Normocephalic. No temporal or scalp tenderness. EYES: Pupils equal round and reactive. Extraocular motions intact. No scleral icterus. No injection or drainage. ENT: Nose without bleeding, purulent drainage or septal hematoma. Throat without erythema, tonsillar hypertrophy or exudate. Uvula midline. Airway patent. NECK: Trachea midline. No JVD or lymphadenopathy. Supple, nontender, no meningeal signs. CARDIOVASCULAR: Regular rate and rhythm with 3/6 TONY at the RUSB. RESPIRATORY: Clear to auscultation. Breath sounds equal bilaterally. No wheezes , rales, or rhonchi. GASTROINTESTINAL: Abdomen soft, non-tender, nondistended. No hepato-splenomegaly , or palpable masses. No guarding. MUSCULOSKELETAL: Extremities without clubbing, cyanosis, or edema. No joint tenderness, effusion, or edema noted. No calf tenderness. Negative Homans sign bilaterally. Patent AV fistula in left arm NEUROLOGICAL: Awake and alert. Cranial nerves II through XII intact. Motor and sensory grossly within normal limits. Five out of 5 muscle strength in all muscle groups. Normal speech. Laboratory Laboratory Tests Test 11/16/16 11/16/16 12:50 18:58 White Blood Count 5.5 11.1 Red Blood Count 2.72 2.59 Hemoglobin 8.9 8.2 Hematocrit 26.4 25.0 Mean Corpuscular Volume 97.2 96.7 Mean Corpuscular Hemoglobin 32.6 31.8 Mean Corpuscular Hemoglobin 33.5 32.9 Concent Red Cell Distribution Width 16.3 15.6 Platelet Count 322 300 Mean Platelet Volume 7.7 7.6 Neutrophils (%) (Auto) 69.3 88.4 Lymphocytes (%) (Auto) 17.3 4.4 Monocytes (%) (Auto) 10.7 6.4 Eosinophils (%) (Auto) 2.0 0.4 Basophils (%) (Auto) 0.7 0.4 Neutrophils # (Auto) 3.8 9.8 Lymphocytes # (Auto) 0.9 0.5 Monocytes # (Auto) 0.6 0.7 Eosinophils # (Auto) 0.1 0.0 Basophils # (Auto) 0.0 0.0 CBC Comment DIFF FINAL DIFF FINAL Differential Comment Prothrombin Time 11.8 Prothromb Time International 1.1 Ratio Activated Partial 38.3 Thromboplast Time Sodium Level 140 Potassium Level 3.5 Chloride Level 99 Carbon Dioxide Level 28.4 Anion Gap 13 Blood Urea Nitrogen 26 Creatinine 7.24 Estimat Glomerular Filtration 8 Rate Random Glucose 171 Calcium Level 9.9 Magnesium Level 2.2 2.8 Total Bilirubin 0.5 Aspartate Amino Transf 62 (AST/SGOT) Alanine Aminotransferase 28 (ALT/SGPT) Alkaline Phosphatase 97 Total Creatine Kinase 44 Troponin I 1.26 Total Protein 7.0 Albumin 3.1 Bedside Hemoglobin 8.8 Bedside Hematocrit 26.0 Bedside Sodium 138 Bedside Potassium 3.4 Bedside Chloride 100 Bedside Blood Urea Nitrogen 27 Bedside Creatinine 7.3 Bedside Glucose 178 Date/Time Procedure Status Source Growth 11/16/16 16:05 Aerobic Blood Culture Received Blood Peripheral Pending 11/16/16 16:05 Anaerobic Blood Culture Received Blood Peripheral Pending Result Diagram: 11/16/16 1858 11/16/16 1250 Imaging Last Impressions Chest X-Ray 11/16/16 1240 Signed Impressions: Service Date/Time: Wednesday, November 16, 2016 12:41 - CONCLUSION: Basilar airspace disease suspected, mild. This is a change from the previous study. Steve Yates MD Lung Scan Nuclear Medicine 11/16/16 0000 Signed Impressions: Service Date/Time: Wednesday, November 16, 2016 16:52 - CONCLUSION: Negative for pulmonary embolism. Kei Gu MD Course Patient stabilized with amiodarone and beta lobo tx. He had an ECHO this morning which shows significant MAC as well as a moderately calcified AV with mild /trace AI. EF ~45%. Assessment and Plan Problem List: (1) Elevated troponin I level Status: Acute (2) Cardiopulmonary arrest with successful resuscitation Status: Acute (3) ESRD (end stage renal disease) on dialysis Status: Acute (4) CAD (coronary artery disease) Status: Acute (5) Coronary aneurysm Status: Acute Assessment and Plan 71 y/o male presents with ventricular fibrillation arrest x 2. He was found to have multivessel CAD on [facility] this evening with a coronary aneurysm from a diagonal branch. The etiology of this may be mycotic given his recent h/o MRSA sepsis. STS risk as follows: RISK SCORES About the STS Risk Calculator Procedure: CAB Only Risk of Mortality: 5.354% Morbidity or Mortality: 32.006% Long Length of Stay: 16.214% Short Length of Stay: 11.22% Permanent Stroke: 1.545% Prolonged Ventilation: 24.238% DSW Infection: 1.288% Renal Failure: N/A Reoperation: 10.081% This is underestimated based on him also having a coronary aneurysm/ pseudoaneurysm. He has blood cultures and an ID consult pending. I would not intervene on the aortic valve at this time due to the /AI being mild and his infection risk. His rhythm has stabilized with IV amiodarone and beta blockade. I will request preop studies as well as a non-contrast CT of the chest. I would tentatively plan surgery for 11/20/16. Discussed Condition With patient Problem Qualifiers (1) Aortic stenosis: Qualified Code: I35.0 - Aortic valve stenosis, unspecified etiology (2) CAD (coronary artery disease): Qualified Code: I25.118 - Coronary artery disease involving [place] coronary artery of [place] heart with other form of angina pectoris Mariel Pretty MD Nov 16, 2016 20:24
[2016-11-16] MEDS ORDERED: NITROGLYCERIN-DEXTROSE INJ 250 ML IV SCH (20:30)
[2016-11-16] MEDS ORDERED: ONDANSETRON HCL 4 MG/2 ML VIAL IV PRN (20:30)
--- NOTE | 2016-11-16 20:41 | CATHPROC ---
[employer] HIS Report Study Information Study Number Admission Scheduled Start Study Start [id number] Nov 16 2016 3:40PM 11/16/2016 Nov 16 2016 6:32PM [place] Service Cardiac Catheterization Admit Source Facility Department Emergency department [facility] Physician and Clinical Staff Initial Issac Robles School Bus Driver Berhane Vides,RT(R) School Bus Driver Oni RN, Anjel Recorder Bruna Newsome,RT(R) (BS) Scrub Xavier Chou RCIS(BS) Procedures Performed Procedure Location (Site) Vessel Name Angiogram LV LV Ventricle Coronary Angiograms LCA Left Coronary Coronary Angiograms RCA Right Coronary L Heart Cath PTCA ADD ON'S Wire insertion Fem Art (right) Femoral Art Equipment Time Injury/Safety Hazard Assessment Description Size Mfg Part Number Used/Scraped TRANSDUCER, JES [id number] 18:53 NanoRacks DOTSON * Used W/STOCKCOCK *[id number] *[id number] 534-622T *[id number] MPA-2 INFINITI 125CM 534-544T CATHETER *[id number] PIGTAIL ANG. 145 INFINITI 534-652S CATHETER *[id number] PIGTAIL ANG. 145 INFINITI 534-652S CATHETER *[id number] 20:04 DAIG/[facility] ANGIOSEAL, FR6 VIP FR 6 Used *[id number] 18:53 MEDLINE INDUSTRIES PACK, CCL CUSTOM * Used *[id number] 18:53 tab ticketbroker PACER PEN, SKIN DUAL W/ RULER * Used *[id number] 19:06 Lolly Wolly Doodle MEDICAL 30 LEENA INDEFLATOR Used *[id number] 18:53 InCytu SHEATH, FR6.5 PRELUDE 11CM FR 6.5 038ACT Used *[id number] 18:53 Lolly Wolly Doodle MEDICAL WIRE, 3MMJ .035 180CM 180CM Used *[id number] 19:25 Lolly Wolly Doodle MEDICAL WIRE, EXCHANGE 260CM 3MMJ 260CM Used *[id number] 18:53 NAMIC MANIFOLD, 4 PORT * Used *[id number] 18:53 NYCOMED OMNIPAQUE, 350 MG, 100ML 100ML [id number] Used [id number] 18:53 Technisys BLANKET,WARM AIR CCL * Used *[id number] Equipment Model, Serial, Lot Number and Expiration Data Description Model Number Serial Number Lot Number Expiration Date EMILY MIX [facility] [id number] 07-16-2017 History: Current Medications Medication Dosage/Unit Route Frequency Last Date/Time Taken ASA History: Allergies Allergy Reaction *MDRO Multi-Drug Resistant Organism History: Risk Factors Family History of Hypertension Dyslipidemia Previous [place] Previous Heart Failure Premature CAD No No No No No Prior Valve Prior PCI Prior CABG Surgery No No No Cerebrovascular Peripheral Artery Chronic Lung On Dialysis Diabetes Diabetes Therapy Disease Disease Disease Yes No No No Yes Diet History: Stress Tests Stress or Imaging Studies Performed No History: Other Current Smoker No Labs Hgb (g/dl) Hct (%) RBC (MIL/MM3) WBC (l/cumm) Platelets (thousands) 11.60-17.00 35.00-51.00 4.00-5.90 4.00-11.00 150.00-450.00 8.9 26.4 2.7 5.5 322 Glucose (mg/dl) BUN (mg/dl) Creatinine (mg/dl) BUN:Creatinine (1:x) 74.00-106.00 7.00-18.00 0.50-1.30 10.00-20.00 171 26 7.2 3.6 Na (meq/l) K (meq/l) Cl (meq/l) CO2 (mmol/L) Ca (mg/dl) 136.00-145.00 3.50-5.10 98.00-107.00 21.00-32.00 8.50-10.10 140 3.5 99 28.4 9.9 PT (sec) PTT (sec) INR (PTT:PT) 9.80-11.60 24.30-30.10 0.90-1.10 11.8 38.3 1.1 Troponin I (ng/ml) CPK-MB (ng/ML) 0.02-0.05 0.50-3.60 1.26 Not Drawn Medication Medication Total Dose (Bolus/Oral) Medication Total Dosage/Unit 1% XYLOCAINE 20 mL ASPIRIN 325 mg HEPARIN 5000 units METOPROLOL 5 mg VERSED 2 mg Medications (Bolus/Oral) Medication Time Given Dosage/Unit Administered By Reason ASPIRIN 11/16/2016 6:45:25 PM 325 mg Anjel Bunn RN 325 mg ASPIRIN given by Anjel Bunn RN via Oral. VERSED 11/16/2016 6:49:12 PM 1 mg Anjel Bunn RN 1 mg VERSED given in lab by Anjel Bunn RN in Right Antecubital via Peripheral IV. VERSED 11/16/2016 6:51:11 PM 1 mg Anjel Bunn RN 1 mg VERSED given in lab by Anjel Bunn RN in Right Antecubital via Peripheral IV. 1% XYLOCAINE 11/16/2016 6:54:22 PM 20 mL Issac Bucio 20 mL 1% XYLOCAINE given in lab by Issac Bucio in Right Groin via Subcutaneous. HEPARIN 11/16/2016 7:41:01 PM 5000 units Anjel Bunn RN 5000 units HEPARIN given in lab by Anjel Bunn RN in Right Antecubital via Peripheral IV. METOPROLOL 11/16/2016 7:47:33 PM 5 mg Anjel Bunn RN 5 mg METOPROLOL given in lab by Anjel Bunn RN in Right Radial via Peripheral IV. Medication (Drip) Medication Time Given Dosage/Unit Concentration/Unit Diluent (ml) Solutio n Amiodarone Drip 11/16/2016 6:55:59 PM 0.99 mg/min 450 mg 250 D5W Patient arrived on 0.99 mg/min Amiodarone Drip given by Issac Bucio in Right Antecubital via Periph eral IV. Pump/Drip Flow = 33 ml/hr using D5W with a concentration of 450 mg in 250 ml. IV Solutions 11/16/2016 6:50:29 PM 0 mL (IV) 500 NaCl .9 Patient arrived on IV Solutions in Right Antecubital via Peripheral IV. Pump/Drip Flow = 20 ml/hr usi ng NaCl .9. NITROGLYCERIN DRIP 11/16/2016 7:44:59 PM 5 mcg/min 50 mg 250 D5W 5 mcg/min NITROGLYCERIN DRIP given in lab by Anjel Bunn RN in Right Antecubital via Peripheral IV. Pump/Drip Flow = 1.5 ml/hr using D5W with a concentration of 50 mg in 250 ml. Initial Case Assessment Cardiovascular HR Rhythm NIBP Chest Pain 82 reg 132/84 0 Edema Present Skin color Skin None Normal Warm Dry Circulatory - Right Pulses Dorsalis Pedis Femoral 2 2 Scale (0,1,2,3,4,d) Circulatory - Left Pulses Dorsalis Pedis Femoral 2 2 Scale (0,1,2,3,4,d) Circulatory - Lower Extremities Color Lower Right Color Lower Left Normal Normal Neurological State Oriented to time-place- Alert Moves all extremities person Respiration - General Respiration Rate SpO2 (%) O2 (lpm) (B/min) 19 95 2 Chronological Log Time Study Chronological Log 18:28:43 [facility] called to inform them recyclable materials sorter is on the way to get patient 18:39:05 Patient arrived via Bed. 18:39:06 Patient Name, D.O.B, / Armband Verified By R.N. 18:39:07 Consent signed by the physician and the patient and verified by the [facility] staff. 18:39:15 MD arrived 18:39:18 Disposable Defibrillator Pads Placed On Patient. 18:45:25 325 mg ASPIRIN given by Anjel Bunn RN via Oral. 18:48:15 Right groin prepped with 2% chlorhexidine, and with a 3 min. waiting time. 18:48:53 Pre-op and post- op instructions given; patient acknowledges understanding of instructions. 18:48:53 Verbal Stimulation=2 Physical Stimulation=2 Airway=2 Respiration=2 TOTAL=8. (0=absent, 1=li mited, 2=present) 18:48:56 Presedation assessment performed by [facility] RN. 18:49:00 Patient has been NPO for More than 6Hrs. 18:49:05 Skin Breakdown- none per pt 18:49:12 1 mg VERSED given in lab by Anjel Bunn RN in Right Antecubital via Peripheral IV. Vitals capture started with the following parameters, Patient=Adult, Interval=5 min, Initial Pr cazyub=378 mmHg, 18:50:00 Deflation Rate=5 mmHg 18:50:16 Patient Warmer Placed on the Table. 18:50:26 Alden Prominences Protected 18:50:29 A # 20 IV was noted in the Antecubital (right). Grade = 0 18:50:29 Patient arrived on IV Solutions in Right Antecubital via Peripheral IV. Pump/Drip Flow = 20 ml/hr using NaCl .9. 18:50:31 History and physical on the chart or being dictated. Assessment: Initial Case, HR=82 BPM, Rhythm=reg, XMMC=196/84 mmhg, Chest Pain=0, Edema=None, Co dolores=Normal, Skin = Warm, Dry Right Pulses: Hernan Ped=2, Femoral=2 Left Pulses: Hernan Ped=2, Femoral=2 18:50:33 Lower Right Extremities: Color=Normal Lower Left Extremities: Color=Normal Neurological: State=Alert, Ox3, DAVID Respiration: Resp=19 B/min, SpO2=95 %, O2=2 lpm 18:50:39 HR=96 bpm, LYZJ=725/84 mmhg, SpO2=98.0 %, Resp=24 B/min 18:51:11 1 mg VERSED given in lab by Anjel Bunn RN in Right Antecubital via Peripheral IV. Time Out. Correct patient, correct procedure,correct physician, power injector not loaded with contrast with surgical 18:51:31 team present. Time Out Concurred by , individual staff in procedure 18:51:45 Case Start 18:52:40 HR=91 bpm, CDFQ=550/74 mmhg, SpO2=92.0 %, Resp=21 B/min, Pain=0, Wilson=10, Hall=2 18:53:04 Pressure channel 1 zeroed. 18:53:54 Reference ECG taken 18:54:22 20 mL 1% XYLOCAINE given in lab by Issac Bucio in Right Groin via Subcutaneous. 18:54:35 HR=90 bpm, UOCX=132/69 mmhg, SpO2=87.0 %, Resp=29 B/min, Pain=0, Wilson=10, Hall=2 Patient arrived on 0.99 mg/min Amiodarone Drip given by Issac Bucio in Right Antecubital via Peripheral IV. 18:55:59 Pump/Drip Flow = 33 ml/hr using D5W with a concentration of 450 mg in 250 ml. 18:56:33 Access site was Right Femoral Artery. 18:56:36 HR=88 bpm, QDAQ=237/72 mmhg, SpO2=87.0 %, Resp=23 B/min, Pain=0, Wilson=10, Hall=2 18:56:38 A SHEATH, FR6.5 PRELUDE 11CM FR 6.5 was advanced into the Fem Art (right) using the Percuta neous technique. A JL 5.0 INFINITI CATHETER FR 6 was advanced over a wire. OMNIPAQUE, 350 MG, 100ML 100ML was us ed for 18:57:53 injections. 18:58:32 HR=93 bpm, RQDC=664/79 mmhg, SpO2=91.0 %, Resp=28 B/min, Pain=0, Wilson=10, Hall=2 Recorded Pressure: Ao, HR=93, Condition=Condition 1 18:59:04 (Aorta) Ao 114/71/89 19:00:02 The LCA was injected and visualized at various angles. OMNIPAQUE, 350 MG, 100ML 100ML used . 19:00:37 HR=66 bpm, DPJU=564/59 mmhg, SpO2=93.0 %, Resp=22 B/min, Pain=0, Wilson=10, Hall=2 19:02:36 HR=55 bpm, MHFZ=223/56 mmhg, SpO2=95.0 %, Resp=19 B/min, Pain=0, Wilson=10, Hall=2 19:02:45 MD reviewing images. 19:04:35 HR=55 bpm, XWTN=436/61 mmhg, SpO2=97.0 %, Resp=22 B/min, Pain=0, Wilson=10, Hall=2 19:05:34 OMNIPAQUE, 350 MG, 100ML 100ML and 30 LEENA INDEFLATOR added. 19:06:36 HR=64 bpm, CNQW=204/66 mmhg, SpO2=97.0 %, Resp=21 B/min, Pain=0, Wilson=10, Hall=2 19:08:34 HR=64 bpm, EVLL=434/75 mmhg, SpO2=96.0 %, Resp=20 B/min, Pain=0, Wilson=10, Hall=2 19:10:37 HR=78 bpm, LBEK=922/65 mmhg, SpO2=99.0 %, Resp=21 B/min, Pain=0, Wilson=10, Hall=2 19:12:36 HR=87 bpm, XJOF=175/68 mmhg, SpO2=98.0 %, Resp=17 B/min, Pain=0, Wilson=10, Hall=2 19:14:35 HR=86 bpm, XRZC=363/67 mmhg, JhY6=247.0 %, Resp=17 B/min, Pain=0, Wilson=10, Hall=2 After removing the current catheter a 3DRC INFINITI CATHETER FR 6 was advanced over a WIRE, 3MM J .035 180CM 19:15:09 180CM. 19:16:36 HR=86 bpm, SNJQ=192/72 mmhg, SpO2=99.0 %, Resp=22 B/min, Pain=0, Wilson=10, Hall=2 19:18:10 The RCA was injected and visualized at various angles. OMNIPAQUE, 350 MG, 100ML 100ML used . 19:18:35 HR=84 bpm, KQSI=388/74 mmhg, SpO2=99.0 %, Resp=18 B/min, Pain=0, Wilosn=10, Hall=2 19:19:38 Catheter was removed A PIGTAIL ANG. 145 INFINITI CATHETER FR 6 was advanced over a wire. OMNIPAQUE, 350 MG, 100ML 10 0ML was 19:20:17 used for injections. 19:20:37 HR=67 bpm, AFMX=172/65 mmhg, SpO2=98.0 %, Resp=23 B/min, Pain=0, Wilson=10, Hall=2 19:22:36 HR=89 bpm, UBUF=540/72 mmhg, SpO2=98.0 %, Resp=20 B/min, Pain=0, Wilson=10, Hall=2 19:22:52 Catheter was removed A MPA-2 INFINITI 125CM CATHETER FR 5 was advanced over a wire. OMNIPAQUE, 350 MG, 100ML 100ML w as used 19:23:44 for injections. 19:24:39 HR=88 bpm, PWEF=412/63 mmhg, SpO2=98.0 %, Resp=20 B/min, Pain=0, Wilson=10, Hall=2 19:24:49 Wire removed 19:25:55 A WIRE, EXCHANGE 260CM 3MMJ 260CM was inserted via Fem Art (right). 19:26:36 HR=86 bpm, NIBP=99/69 mmhg, SpO2=99.0 %, Resp=10 B/min, Pain=0, Wilson=10, Hall=2 After removing the current catheter a PIGTAIL ANG. 145 INFINITI CATHETER FR 6 was advanced over a WIRE, 19:27:25 EXCHANGE 260CM 3MMJ 260CM. 19:28:37 HR=85 bpm, EJXU=089/72 mmhg, SpO2=97.0 %, Resp=18 B/min, Pain=0, Wilson=10, Hall=2 Recorded Pressure: LV, HR=85, Condition=Condition 1 19:29:39 (Left Ventricle) LV 129/7/28 19:30:30 The LV was injected at 10 cc/sec for a total of 40. OMNIPAQUE, 350 MG, 100ML 100ML used. 19:30:38 HR=86 bpm, YLOD=089/72 mmhg, SpO2=97.0 %, Resp=26 B/min, Pain=0, Wilson=10, Hall=2 Recorded Pressure: LV, Ao, HR=85, Condition=Condition 1 19:31:19 (Left Ventricle) LV 135/9/28, (Aorta) Ao 115/68/89 19:32:26 Catheter was removed 19:32:38 HR=89 bpm, AIMY=527/75 mmhg, SpO2=97.0 %, Resp=32 B/min, Pain=0, Wilson=10, Hall=2 19:32:58 An injection in the Fem Art (right) was made through the SHEATH, FR6.5 PRELUDE 11CM FR 6.5. 19:34:39 HR=84 bpm, WPKY=361/72 mmhg, SpO2=97.0 %, Resp=17 B/min, Pain=0, Wilson=10, Hall=2 19:36:34 HR=84 bpm, DWJP=717/74 mmhg, SpO2=97.0 %, Resp=20 B/min, Pain=0, Wilson=10, Hall=2 19:38:39 HR=86 bpm, SNQD=707/71 mmhg, SpO2=98.0 %, Resp=22 B/min, Pain=0, Wilson=10, Hall=2 19:40:42 HR=90 bpm, LLDA=511/75 mmhg, SpO2=96.0 %, Resp=20 B/min, Pain=0, Wilson=10, Hall=2 19:41:01 5000 units HEPARIN given in lab by Anjel Bunn RN in Right Antecubital via Peripheral IV. 19:42:41 HR=83 bpm, JPJG=165/83 mmhg, SpO2=97.0 %, Resp=20 B/min, Pain=0, Wilson=10, Hall=2 19:44:39 HR=85 bpm, UHSW=093/81 mmhg, SpO2=96.0 %, Resp=20 B/min, Pain=0, Wilson=10, Hall=2 5 mcg/min NITROGLYCERIN DRIP given in lab by Anjel Bunn RN in Right Antecubital via Periphera l IV. Pump/Drip Flow 19:44:59 = 1.5 ml/hr using D5W with a concentration of 50 mg in 250 ml. 19:46:42 HR=68 bpm, ASJX=942/77 mmhg, SpO2=96.0 %, Resp=22 B/min, Pain=0, Wilson=10, Hall=2 19:47:33 5 mg METOPROLOL given in lab by Anjel Bunn RN in Right Radial via Peripheral IV. 19:48:41 HR=75 bpm, CXWQ=117/73 mmhg, SpO2=96.0 %, Resp=20 B/min, Pain=0, Wilson=10, Hall=2 19:50:[address] surgeon 19:50:42 HR=71 bpm, LGBG=796/69 mmhg, SpO2=95.0 %, Resp=21 B/min, Pain=0, Wilson=10, Hall=2 19:52:41 HR=71 bpm, GFAK=939/70 mmhg, SpO2=93.0 %, Resp=27 B/min, Pain=0, Wilson=10, Hall=2 19:54:37 HR=69 bpm, YTKE=984/74 mmhg, SpO2=96.0 %, Resp=18 B/min, Pain=0, Wilson=10, Hall=2 19:56:38 HR=70 bpm, KFNL=848/72 mmhg, SpO2=97.0 %, Resp=17 B/min, Pain=0, Wilson=10, Hall=2 19:58:39 HR=71 bpm, MNXP=452/72 mmhg, SpO2=98.0 %, Resp=19 B/min, Pain=0, Wilson=10, Hall=2 20:00:40 HR=70 bpm, RIVF=519/68 mmhg, SpO2=99.0 %, Resp=22 B/min, Pain=0, Wilson=10, Hall=2 20:02:39 HR=71 bpm, LUMS=470/70 mmhg, SpO2=97.0 %, Resp=8 B/min, Pain=0, Wilson=10, Hall=2 20:04:32 ANGIOSEAL, FR6 VIP FR 6 placement in the Fem Art (right) 20:04:40 HR=71 bpm, SQNH=545/71 mmhg, SpO2=96.0 %, Resp=17 B/min, Pain=0, Wilson=10, Hall=2 20:04:50 Case End 20:04:56 Catheter(s) removed without difficulty 20:05:03 No case complications noted. 20:05:04 Cine recording checked. 20:05:06 Bedside Report will be given. 20:05:08 Implantable Device card placed in patient's chart. 20:05:16 Contrast Scanned 20:05:22 A Left Heart Cath was performed. 20:06:38 HR=70 bpm, LIDL=646/72 mmhg, SpO2=96.0 %, Resp=10 B/min, Pain=0, Wilson=10, Hall=2 20:08:41 HR=71 bpm, NIBP=99/73 mmhg, SpO2=97.0 %, Resp=18 B/min, Pain=0, Wilson=10, Hall=2 20:10:40 HR=70 bpm, LMSQ=062/72 mmhg, JoG5=907.0 %, Resp=16 B/min, Pain=0, Wilson=10, Hall=2 20:12:41 HR=70 bpm, NIBP=96/70 mmhg, SpO2=99.0 %, Resp=22 B/min, Pain=0, Wilson=10, Hall=2 20:14:40 HR=70 bpm, HOUS=483/73 mmhg, SpO2=98.0 %, Resp=19 B/min, Pain=0, Wilson=10, Hall=2 20:16:40 HR=70 bpm, WTIK=715/71 mmhg, KgN5=997.0 %, Resp=20 B/min, Pain=0, Wilson=10, Hall=2 20:18:41 HR=72 bpm, NIBP=98/69 mmhg, MmN4=091.0 %, Resp=19 B/min, Pain=0, Wilson=10, Hall=2 20:20:40 HR=70 bpm, FNFQ=179/70 mmhg, DzI6=186.0 %, Resp=4 B/min, Pain=0, Wilson=10, Hall=2 20:22:41 HR=70 bpm, NIBP=99/68 mmhg, AwZ1=539.0 %, Resp=19 B/min, Pain=0, Wilson=10, Hall=2 20:24:40 HR=71 bpm, XTKB=191/72 mmhg, VfX3=105.0 %, Resp=26 B/min, Pain=0, Wilson=10, Hall=2 Vitals capture started with the following parameters, Patient=Adult, Interval=5 min, Initial Pr pmbfcx=593 mmHg, 20:26:25 Deflation Rate=5 mmHg 20:26:38 Patient moved to stretcher 20:26:59 HR=72 bpm, UPZJ=113/62 mmhg, KdX1=395.0 %, Resp=22 B/min, Pain=0, Wilson=10, Hall=2 20:31:58 HR=69 bpm, FTIW=897/67 mmhg, SpO2=99.0 %, Resp=15 B/min, Pain=0, Wilson=10, Hall=2 20:36:57 HR=68 bpm, OODC=592/69 mmhg, CvB0=900.0 %, Resp=17 B/min, Pain=0, Wilson=10, Hall=2 20:41:08 Vitals capture stopped. End Study - Contrast Media Used In Study Contrast Total Opened (mL) Total Used (mL) Total Wasted (mL) Omnipaque 130 130 0 End Study - Maximum Contrast Load Max Contrast Load (mL) 70.7 End Study - Radiation Exposure Fluoro Time (minutes) 8.5 End Study - Sheaths Sheaths Pulled By Sheath Hold Time (min) Issac Bucio End Study - Patient Disposition Complications Transferred To Interventional Outcome No Critical Care Bed No attempt made
[2016-11-16] MEDS: INSULIN NovoLIN REGULAR SUPPLEMENTAL SCALE SQ SCH (21:00)
[2016-11-16] MEDS ORDERED: POTASSIUM CHLOR 20 MEQ PREMIX 100 ML IV ONE (21:15)
[2016-11-16] MEDS: SODIUM CHLOR 0.9% 1000 ML INJ 1,000 ML IV SCH (21:17)
[2016-11-16] MEDS: AMIODARONE INJ 450 MG in DEXTROSE 5% IN WATE(EXCEL) INJ 241 ML IV SCH ×2 (21:18)
[2016-11-16] MEDS: HEPARIN-D5W INJ 250 ML IV SCH (21:19)
--- NOTE | 2016-11-16 21:38 | MA ---
cc: JOAN BARTH M.D. DATE 11/16/16 PROCEDURE PERFORMED Left heart catheterization, left ventriculography, coronary angiography, right femoral angiography with Angio-Seal placement. BRIEF HISTORY Roland Conrad is a complicated 71-year-old man with hypertension, prediabetes and end-stage renal disease. He has had two VF arrests today. He has had no anginal symptoms. He is still having ongoing salvos of VT. Decision was made to perform emergency cardiac catheterization to see if there was an ischemic etiology. DESCRIPTION OF PROCEDURE The patient was brought to the cardiac laborer landscape. He had not eaten since this morning, he was in a fasting state. He received a total 2 milligrams of IV Versed for sedation. He was prepped and draped in sterile fashion. Using 1% lidocaine for local anesthesia a 6.5-Croatian sheath was inserted in the right femoral artery. Coronary angiography was then performed. Next, using a Halima for the left coronary artery and a 3DRC for the right coronary artery, I tried to cross the aortic valve with the pigtail catheter but the pigtail was not long enough to reach. I was able to cross the valve with a multipurpose catheter and then using a long J exchange wire exchanged to a pigtail catheter whereupon I performed left ventriculography and then a pullback. Angiography was then obtained of the right femoral artery via the sheath followed by uncomplicated Angio-Seal placement with good hemostasis. Dr. Mariel Pretty was consulted during the case who came in during the procedure. Decision was made to perform bypass surgery but not tonight, at a later date. The patient received 5 mg of IV metoprolol which dramatically improved his cardiac rhythm. Instead of being in sinus rhythm in the 90s he converted to sinus rhythm at 70 and all of his ventricular ectopy stopped. He also was started on a 5 microgram nitroglycerin drip and an IV heparin bolus and IV heparin drip were started. The patient has no anginal symptoms and is comfortable at this time. FINDINGS 1. Hemodynamics. Left ventricular pressure was 135/9 with an end-diastolic pressure of 28. The aortic pressure is 115/68 with a mean of 89. There is a 20 mm cndt-id-pajw gradient during pullback. 2. Left ventriculography: Left ventriculography shows anterolateral akinesis, apical hypokinesis. Ejection fraction appears to be 35-40%. There is no mitral regurgitation seen. There is significant coronary artery and valvular calcification. 3. Coronary angiography: The left main coronary artery is a large vessel that appears normal. It bifurcates into the LAD and circumflex vessels. The LAD has proximal irregularities with about a 15% ostial stenosis. After the first septal theatrical rigger branch the LAD has a tubular 80% stenosis. Coming off the LAD is a very small diagonal branch that comes off at about the same level as where the septal branch comes off. The diagonal branch feeds an aneurysm that appears to be about 3 cm in size. There is no distal flow on the diagonal branch and one could see some calcification and diagonal branch but no flow. The circumflex artery is codominant and gives off multiple branches. The first marginal branch courses almost like a ramus intermediate branch and has about 70% ostial disease but is somewhat small. The second obtuse marginal branch also comes off proximally. This was a large vessel and it has an 80% stenosis. Coming off next are the posterolateral branches. There is a small posterolateral branch and then a large posterolateral branch. The large posterolateral branch has 80-90% stenosis. Then there are two additional posterolateral branches given off that are small. The right coronary artery is codominant, demonstrates complex disease. There is a 95% proximal stenosis just before an area of marked ectasia. Coming out of the area of marked ectasia is a large acute marginal branch just beyond the large ectotic segment is another tubular 95% stenosis. There is good flow, however, in the right coronary artery. Distally near the crux is a 35% stenosis. CONCLUSION 1. Impaired LV function, estimated ejection fraction of 35%. Wall motion abnormalities correspond best to the diagonal branch. 2. 20 mm aortic valve gradient consistent with at least mild aortic stenosis. 3. Critical three-vessel coronary artery disease. 4. 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 PLAN The patient's rhythm has stabilized dramatically with the use of beta blockers, so bypass surgery will be avoided tonight. He is having no anginal symptoms. I am going to continue him on a beta lobo, nitroglycerin and IV heparin. He needs further evaluation by ID. He needs a 2-D echo Doppler study. Plan is to have bypass surgery once all the other issues have been sorted out. If he remains stable this probably can wait till Friday. MD ENDY Shafer/WILLOW /8:24 PM /9:23 PM
[2016-11-16] MEDS: METOPROLOL TARTRATE 25 MG TAB PO SCH ×2 (22:00→22:51)
[2016-11-16] MEDS: RIFAMPIN 150 MG CAP PO SCH (22:51)
[2016-11-16] MEDS: DOCUSATE SODIUM 50 MG/SENNA 8.6 MG TAB PO SCH (22:51)
[2016-11-16] MEDS: SODIUM CHLORIDE 0.9% FLUSH 10 ML FLUSH IV FLUSH SCH (23:04)
[2016-11-17] VITALS (8 sets, daily range): BP systolic 95–116; BP diastolic 64–82; PULSE 62–69; RESP 16–20; TEMP 97.6–98.4; O2SAT 98–99
[2016-11-17] MEDS ORDERED: HEPARIN SODIUM - IV 10,000 UNITS/10 ML VIAL IV PRN (02:30)
[2016-11-17] MEDS: AMIODARONE INJ 450 MG in DEXTROSE 5% IN WATE(EXCEL) INJ 241 ML IV SCH ×4 (02:43→16:25)
[2016-11-17 04:15] LABS: AUTOMATED NEUTROPHIL # 5.4 TH/MM3 (1.8-7.7); BASOPHIL # 0.1 TH/MM3 (0-0.2); BASOPHIL % 0.9 % (0.0-2.0); EOSINOPHIL % 0.4 % (0.0-4.0); HEMATOCRIT 23.2 % (39.0-51.0); HEMO FLAGS DIFF FINAL; LYMPH % 8.8 % (9.0-44.0); LYMPHOCYTE # 0.6 TH/MM3 (1.0-4.8); MEAN CELL VOLUME 97.1 FL (80.0-100.0); MEAN CORPUSCULAR HEMOGLOBIN 31.5 PG (27.0-34.0); MEAN CORPUSCULAR HGB CONC 32.4 % (32.0-36.0); MONO % 9.1 % (0.0-8.0); NEUT % 80.8 % (16.0-70.0); PLATELET COUNT 213 TH/MM3 (150-450); RED BLOOD COUNT 2.38 MIL/MM3 (4.50-5.90); RED CELL DISTRIBUTION WIDTH 15.8 % (11.6-17.2); WHITE BLOOD COUNT 6.7 TH/MM3 (4.0-11.0)
[2016-11-17 04:26] LABS: APTT (PATIENT) 36.9 SEC (24.3-30.1)
[2016-11-17 04:48] LABS: ALKALINE PHOSPHATASE 75 U/L (45-117); ALT (GPT) 23 U/L (12-78); ANION GAP 10 MEQ/L (5-15); AST (GOT) 39 U/L (15-37); BICARBONATE 26.4 MEQ/L (21.0-32.0); BLOOD UREA NITROGEN 33 MG/DL (7-18); CHLORIDE 100 MEQ/L (98-107); GLOMERULAR FILTRATION RATE 7 ML/MIN (>89); POTASSIUM 4.5 MEQ/L (3.5-5.1); SODIUM (NA) 136 MEQ/L (136-145); TOTAL BILIRUBIN ADULT 0.5 MG/DL (0.2-1.0)
[2016-11-17] MEDS: HEPARIN SODIUM - IV 10,000 UNITS/10 ML VIAL IV PRN ×2 (04:55→22:37)
[2016-11-17] MEDS: INSULIN NovoLIN REGULAR SUPPLEMENTAL SCALE SQ SCH ×4 (06:03→21:00)
[2016-11-17] MEDS: METOPROLOL TARTRATE 25 MG TAB PO SCH ×2 (06:12→21:33)
[2016-11-17] MEDS ORDERED: SODIUM CHLOR 0.9% 250 ML INJ 250 ML IV ONE (07:00)
--- NOTE | 2016-11-17 07:29 | HHI.CCPN ---
Subjective Remarks/Hospital Course 11/16: 71 years old male with ESRD on HD who was brought to ER from dialysis where he suddenly became unresponsive. On scene providers performed CPR for approximately 5 minutes. He underwent defibrillation twice and had a return of spontaneous circulation per ER documentation. The patient states he felt sleepy this morning and believes he may have actually fell asleep during dialysis. He does not recall the actual loss of consciousness. EMS reports that on scene he had a blood pressure 127/80 and a heart rate of 110 sinus tach. Occasional PVCs were observed. FS Glucose was 168. The dialysis session was about 50% complete when he became unresponsive and then was sent to the ER. On evaluation in the ER patient was completely asymptomatic without any chest pain. [facility] and was evaluated by Dr. Craig from cardiology. Patient was initiated on amiodarone drip and subsequently proceeded for VQ scan where he had another episode of V. tach arrest, CODE BLUE cardiac arrest code was activated. Patient was shocked out of the V. tach had about 2.5 minutes of CPR at that time. Subsequently he was transported to [facility] where I evaluated him immediately following his arrival. At that time patient was awake and alert and denied any chest pain or shortness of breath. He says that he passed out and does not recollect any other events. Shortly following patient's arrival to ICU he had a third episode where he became unresponsive and went into V. tach arrest. CPR/ACLS protocol initiated, patient converted spontaneously to sinus rhythm prior to defibrillation and became responsive. He denied any chest pain or shortness of breath following regaining of consciousness. Patient was given amiodarone 300 mg IV bolus following third episode of V. tach along with 2 g of magnesium sulfate IV push as well as 1 g of calcium chloride. Discussed with Dr. Craig followed by Dr. Issac Bucio from cardiology-Dr. Bucio planning cardiac catheterization. Patient is being treated with antibiotics for L1 osteomyelitis/ epidural abscess with rifampin and IV vancomycin. 11/17: Underwent cardiac cath by Dr. Bucio last night. 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 Placed on heparin and NTG gtt following cardiac cath and evaluated by CTS dr Conrad. No episodes of Vtach following cardiac cath. Denies any chest pain/ SOB this morning. Objective Vital Signs Date Time Temp Pulse Resp B/P Pulse Ox O2 Delivery O2 Flow Rate FiO2 11/17/16 04:00 98 Nasal Cannula 4.00 11/17/16 04:00 64 11/17/16 04:00 97.6 18 102/72 Result Diagram: 11/17/16 0337 11/17/16 0337 Other Results Laboratory Tests Test 11/16/16 11/16/16 11/16/16 11/17/16 12:50 18:58 23:15 03:37 White Blood Count 5.5 TH/MM3 11.1 TH/MM3 6.7 TH/MM3 Red Blood Count 2.72 MIL/MM3 2.59 MIL/MM3 2.38 MIL/MM3 Hemoglobin 8.9 GM/DL 8.2 GM/DL 7.5 GM/DL Hematocrit 26.4 % 25.0 % 23.2 % Mean Corpuscular Volume 97.2 FL 96.7 FL 97.1 FL Mean Corpuscular Hemoglobin 32.6 PG 31.8 PG 31.5 PG Mean Corpuscular Hemoglobin 33.5 % 32.9 % 32.4 % Concent Red Cell Distribution Width 16.3 % 15.6 % 15.8 % Platelet Count 322 TH/MM3 300 TH/MM3 213 TH/MM3 Mean Platelet Volume 7.7 FL 7.6 FL 7.4 FL Neutrophils (%) (Auto) 69.3 % 88.4 % 80.8 % Lymphocytes (%) (Auto) 17.3 % 4.4 % 8.8 % Monocytes (%) (Auto) 10.7 % 6.4 % 9.1 % Eosinophils (%) (Auto) 2.0 % 0.4 % 0.4 % Basophils (%) (Auto) 0.7 % 0.4 % 0.9 % Neutrophils # (Auto) 3.8 TH/MM3 9.8 TH/MM3 5.4 TH/MM3 Lymphocytes # (Auto) 0.9 TH/MM3 0.5 TH/MM3 0.6 TH/MM3 Monocytes # (Auto) 0.6 TH/MM3 0.7 TH/MM3 0.6 TH/MM3 Eosinophils # (Auto) 0.1 TH/MM3 0.0 TH/MM3 0.0 TH/MM3 Basophils # (Auto) 0.0 TH/MM3 0.0 TH/MM3 0.1 TH/MM3 CBC Comment DIFF FINAL DIFF FINAL DIFF FINAL Differential Comment Prothrombin Time 11.8 SEC 11.5 SEC Prothromb Time International 1.1 RATIO 1.0 RATIO Ratio Activated Partial 38.3 SEC 25.9 SEC 36.9 SEC Thromboplast Time Sodium Level 140 MEQ/L 136 MEQ/L Potassium Level 3.5 MEQ/L 4.5 MEQ/L Chloride Level 99 MEQ/L 100 MEQ/L Carbon Dioxide Level 28.4 MEQ/L 26.4 MEQ/L Anion Gap 13 MEQ/L 10 MEQ/L Blood Urea Nitrogen 26 MG/DL 33 MG/DL Creatinine 7.24 MG/DL 7.99 MG/DL Estimat Glomerular Filtration 8 ML/MIN 7 ML/MIN Rate Random Glucose 171 MG/DL 121 MG/DL Calcium Level 9.9 MG/DL 10.4 MG/DL 9.7 MG/DL Magnesium Level 2.2 MG/DL 2.8 MG/DL Total Bilirubin 0.5 MG/DL 0.5 MG/DL Aspartate Amino Transf 62 U/L 39 U/L (AST/SGOT) Alanine Aminotransferase 28 U/L 23 U/L (ALT/SGPT) Alkaline Phosphatase 97 U/L 75 U/L Total Creatine Kinase 44 U/L 56 U/L Troponin I 1.26 NG/ML 1.24 NG/ML Total Protein 7.0 GM/DL 6.0 GM/DL Albumin 3.1 GM/DL 2.6 GM/DL Bedside Hemoglobin 8.8 G/DL Bedside Hematocrit 26.0 % Bedside Sodium 138 MMOL/L Bedside Potassium 3.4 MMOL/L Bedside Chloride 100 MMOL/L Bedside Blood Urea Nitrogen 27 MG/DL Bedside Creatinine 7.3 MG/DL Bedside Glucose 178 MG/DL B-Type Natriuretic Peptide 1688 PG/ML Blood Type O POSITIVE Antibody Screen NEGATIVE Nasal Screen MRSA (PCR) MRSA DETECTED Imaging Last Impressions Chest X-Ray 11/16/16 1240 Signed Impressions: Service Date/Time: Wednesday, November 16, 2016 12:41 - CONCLUSION: Basilar airspace disease suspected, mild. This is a change from the previous study. Steve Yates MD Objective Remarks Physical Exam Narrative GENERAL: 71-year-old male well-nourished well-developed. Resting comfortably in bed, in no acute distress. SKIN: Focused skin assessment warm/dry. HEAD: Atraumatic. Normocephalic. EYES: Pupils equal and round. No scleral icterus. No injection or drainage. ENT: No nasal bleeding or discharge. Mucous membranes pink and moist. NECK: Trachea midline. No JVD. CARDIOVASCULAR: Regular rate and rhythm. No murmur appreciated. RESPIRATORY: No accessory muscle use. Clear to auscultation. Breath sounds equal bilaterally. GASTROINTESTINAL: Abdomen soft, non-tender, nondistended. Hepatic and splenic margins not palpable. MUSCULOSKELETAL: No obvious deformities. No clubbing. No cyanosis. Left arteriovenous fistula. NEUROLOGICAL: Awake and alert. No obvious cranial nerve deficits. Motor grossly within normal limits. Normal speech. PSYCHIATRIC: Appropriate mood and affect; insight and judgment normal. A/P Assessment and Plan 71-year-old male with: Recurrent ventricular tachycardia Elevated troponin End-stage renal disease on hemodialysis thoracic/ lumbar spine osteomyelitis/epidural abscess on IV vancomycin/rifampin Hypertension Prediabetes Anemia Plan: Neuro: Follow neuro status. Cardiovascular: 3 episodes of V. tach arrest status post CPR/ACLS. Patient has been evaluated by cardiology and has been loaded with amiodarone which was continued as drip. Given magnesium sulfate 2 g IV and calcium chloride 1 g IV following third episode of V. tach. Discussed with Dr. Issac Bucio and Dr. Craig from cardiology. 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 Placed on heparin and NTG gtt following cardiac cath and evaluated by CTS dr Conrad for CABG. Serial cardiac enzymes. Continue ASA Pulmonary: Continue supplemental O2. Adequately protecting airway at this time. GI/liver: Renal diet as tolerated. Renal/: Underwent hemodialysis 11/16. Nephrology consult to continue hemodialysis while in hospital. Strict intake output, monitor and replete electrolytes, follow BUN/creatinine. ID: Continue IV vancomycin and rifampin for L1 osteomyelitis/epidural abscess. ID consulted for further evaluation as patient will need CABG. Heme: Ordered 1 unit PRBCs for Hgb 7.5 Endocrine: SSI for glycemic control as needed Prophylaxis: SCDs, subcutaneous heparin/Lovenox if okay with cardiology following cardiac catheterization. Jarrett Moreno MD Nov 17, 2016 07:29
[2016-11-17] MEDS ORDERED: [UNRECOGNIZED DRUG - OTHER] OTHER SCH (08:00)
[2016-11-17] MEDS ORDERED: NON-FORMULARY DRUG (B-Complex W/ C & Folic Acid (Rena-Vite) 1 TAB) PO SCH (09:00)
[2016-11-17] MEDS ORDERED: DOCUSATE SODIUM 100 MG CAP PO SCH (09:00)
[2016-11-17] MEDS: CALCITRIOL 0.25 MCG CAP PO SCH (09:48)
[2016-11-17] MEDS: VITAMIN B CMPLX/VITC/FOLIC AC CAP PO SCH (09:48)
[2016-11-17] MEDS: DOCUSATE SODIUM 50 MG/SENNA 8.6 MG TAB PO SCH ×2 (09:49→21:33)
[2016-11-17] MEDS: ASPIRIN 325 MG TAB PO SCH (09:49)
[2016-11-17] MEDS: SODIUM CHLORIDE 0.9% FLUSH 10 ML FLUSH IV FLUSH SCH ×3 (09:49→21:33)
[2016-11-17] MEDS: RIFAMPIN 150 MG CAP PO SCH ×2 (09:49→21:33)
--- NOTE | 2016-11-17 10:08 | ECHRPT ---
Indication: cad CONCLUSIONS Normal left ventricular size. Wall thickness is measured at the upper limits of normal. The left ventricular systolic function is moderately reduced with an estimated ejection fraction in the range of 40-45%. There is global left ventricular dysfunction. Mild thickening of the mitral valve leaflets. Moderate mitral annular calcification. Trace mitral valve regurgitation. The aortic valve is not well visualized. Severe thickening of the aortic valve leaflets. Mild to moderate aortic valve stenosis. AV max gradient is 27mmhg mean PG 16 VMAX is 259 cm/s There is moderate tricuspid regurgitation. 29 RVSPThe pulmonary valve is not well visualized. The inferior vena cava is dilated. BP: / HR: Rhythm: MEASUREMENTS (Male / Female) Normal Values Technical Quality:Technically difficult study, Pierre r 2D ECHO LV Diastolic Diameter PLAX 4.9 cm 4.2 - 5.9 / 3.9 - 5.3 cm LV Systolic Diameter PLAX 4.2 cm IVS Diastolic Thickness 1.1 cm 0.6 - 1.0 / 0.6 - 0.9 cm LVPW Diastolic Thickness 1.3 cm 0.6 - 1.0 / 0.6 - 0.9 cm LV Relative Wall Thickness 0.5 RV Internal Dim ED PLAX 3.8 cm LVOT Diameter 2.2 cm M-MODE Aortic Root Diameter MM 3.9 cm LA Systolic Diameter MM 3.8 cm LA Ao Ratio MM 1.0 AV Cusp Separation MM 1.0 cm DOPPLER AV Peak Velocity 254.5 cm/s AV Peak Gradient 25.9 mmHg AV Mean Gradient 14.7 mmHg AV Velocity Time Integral 55.5 cm LVOT Peak Velocity 66.9 cm/s LVOT Peak Gradient 1.8 mmHg LVOT Velocity Time Integral 15.9 cm AV Area Cont Eq vti 1.1 cm AV Area Cont Eq pk 1.0 cm Mitral E Point Velocity 131.0 cm/s Mitral A Point Velocity 56.3 cm/s Mitral E to A Ratio 2.3 LV E' Lateral Velocity 9.0 cm/s Mitral E to LV E' Lateral Ratio 14.6 LV E' Septal Velocity 7.7 cm/s Mitral E to LV E' Septal Ratio 17.0 TR Peak Velocity 273.0 cm/s TR Peak Gradient 29.8 mmHg FINDINGS LEFT VENTRICLE Normal left ventricular size. Wall thickness is measured at the upper limits of normal. The left ventricular systolic function is moderately reduced with an estimated ejection fraction in the range of 40-45%. There is global left ventricular dysfunction. RIGHT VENTRICLE Normal right ventricular size and systolic function. LEFT ATRIUM The left atrial size is normal. RIGHT ATRIUM The right atrial size is normal. ATRIAL SEPTUM Normal atrial septal thickness without atrial level shunting by limited color doppler interrogation. AORTA The aortic root and proximal ascending aorta are normal in size on limited imaging. MITRAL VALVE Mild thickening of the mitral valve leaflets. Moderate mitral annular calcification. Trace mitral valve regurgitation. AORTIC VALVE The aortic valve is not well visualized. Severe thickening of the aortic valve leaflets. Mild to moderate aortic valve stenosis. AV max gradient is 27mmhg mean PG 16 VMAX is 259 cm/s TRICUSPID VALVE Structurally normal tricuspid valve. There is moderate tricuspid regurgitation. 29 RVSP PULMONARY VALVE The pulmonary valve is not well visualized. VESSELS The inferior vena cava is dilated. PERICARDIUM No pericardial effusion. Davi Craig MD (Electronically Signed) Final Date:17 November 2016 10:07
--- NOTE | 2016-11-17 11:17 | PD.CARD.PN ---
Subjective Subjective Remarks Ribs hurt with deep breath. No angina. No SOB Objective Medications Current Medications Medications (Trade) Dose Ordered Sig/Zenobia Route Start Time Stop Time Status Last Admin Amiodarone HCl 450 mg/Dextrose 250 ml @ 0 mls/hr CONTINUOUS IV 11/16/16 16:15 11/17/16 02:43 (NS 1000 ml Inj) 1,000 ml @ 15 mls/hr Q24H IV 11/16/16 17:00 11/16/16 21:17 (NS Flush) 2 ml UNSCH PRN IV FLUSH 11/16/16 16:15 (NS Flush) 2 ml BID IV FLUSH 11/16/16 21:00 11/17/16 09:49 (Tylenol) 650 mg Q4H PRN PO 11/16/16 16:15 (Narcan Inj) 0.4 mg UNSCH PRN IV 11/16/16 16:15 (Indu-Colace) 1 tab BID PO 11/16/16 21:00 11/17/16 09:49 (Milk Of Magnesia Liq) 30 ml Q12H PRN PO 11/16/16 16:15 (Senokot) 17.2 mg Q12H PRN PO 11/16/16 16:15 (Dulcolax Supp) 10 mg DAILY PRN RECTAL 11/16/16 16:15 (Lactulose Liq) 30 ml DAILY PRN PO 11/16/16 16:15 (Aspirin) 325 mg DAILY PO 11/17/16 09:00 11/17/16 09:49 (Rocaltrol) 0.5 mcg DAILY PO 11/17/16 09:00 11/17/16 09:48 (Percocet 5-325 Mg) 1 tab Q6H PRN PO 11/16/16 16:15 (Rifampin) 300 mg Q12HR PO 11/16/16 21:00 11/17/16 09:49 (Restoril) 30 mg HS PRN PO 11/16/16 16:15 (Nephrocaps) 1 cap DAILY PO 11/17/16 09:00 11/17/16 09:48 (Sensipar) 60 mg DAILY@16 PO 11/17/16 16:00 Patient Own Medication PT OWN MED:VELPHORO(SUCROFERRIC OXYHYDROXIDE)500... TIDAC OTHER 11/17/16 08:00 Hold (D50w (Vial) Inj) 50 ml UNSCH PRN IV 11/16/16 17:30 (Glucagon Inj) 1 mg UNSCH PRN OTHER 11/16/16 17:30 (Heparin Inj) 5,000 units UNSCH PRN IV 11/17/16 02:30 Heparin Sodium (Porcine) 2500 units 2,500 units UNSCH PRN IV 11/17/16 02:30 11/17/16 04:55 Heparin Sodium/ Dextrose 250 ml @ 0 mls/hr TITRATE IV 11/16/16 20:30 11/16/16 21:19 (Nitroglycerin-Dextrose Inj) 250 ml @ 0 mls/hr TITRATE IV 11/16/16 20:30 Ondansetron HCl 4 mg 4 mg Q4H PRN IV 11/16/16 20:30 (NS 250 ml Inj) 250 ml @ 15 mls/hr ONCE ONCE IV 11/17/16 07:00 11/17/16 23:39 11/17/16 08:51 (Lopressor) 25 mg BID PO 11/17/16 21:00 UNV Vital Signs / I&O Vital Signs Date Time Temp Pulse Resp B/P Pulse Ox O2 Delivery O2 Flow Rate FiO2 11/17/16 07:00 66 11/17/16 07:00 97.7 66 20 107/73 99 11/17/16 07:00 99 Nasal Cannula 4.00 11/17/16 04:00 98 Nasal Cannula 4.00 11/17/16 04:00 64 11/17/16 04:00 97.6 69 18 102/72 99 11/17/16 00:00 98 Nasal Cannula 4.00 11/17/16 00:00 68 11/17/16 00:00 68 16 95/64 98 11/16/16 23:00 98 Nasal Cannula 4.00 11/16/16 21:00 97.4 67 18 100/71 99 11/16/16 21:00 66 11/16/16 21:00 99 Nasal Cannula 2.00 11/16/16 20:51 99 Nasal Cannula 2.00 11/16/16 18:13 100 Nasal Cannula 5.00 11/16/16 17:30 97.7 102 30 129/89 93 11/16/16 17:30 100 Non-Rebreather 10.00 11/16/16 16:23 68 21 121/74 96 Room Air 11/16/16 15:16 76 17 108/57 97 Room Air 11/16/16 15:10 76 17 97/54 97 Room Air 11/16/16 12:42 98.4 109 19 137/76 100 Room Air 11/16/16 12:35 98.4 109 23 100 I/O 11/16/16 11/16/16 11/16/16 11/17/16 11/17/16 11/17/16 07:00 15:00 23:00 07:00 15:00 23:00 Intake Total 1346 ml Output Total 0 ml Balance 1346 ml Intake Oral 240 ml IV Total 1106 ml Output Urine Total 0 ml # Bowel Movements 0 Physical Exam Alert Chest: trace crackles left base CV S1S2 RRR. 2/6 mild-mod murmur. Abd: soft Ext: Right groin without hematoma. pedal pulse weak but present and foot is warm Tele: NSR with first degree AV block Laboratory Laboratory Tests Test 11/16/16 11/16/16 11/16/16 11/17/16 12:50 18:58 23:15 03:37 White Blood Count 5.5 TH/MM3 11.1 TH/MM3 6.7 TH/MM3 Red Blood Count 2.72 MIL/MM3 2.59 MIL/MM3 2.38 MIL/MM3 Hemoglobin 8.9 GM/DL 8.2 GM/DL 7.5 GM/DL Hematocrit 26.4 % 25.0 % 23.2 % Mean Corpuscular Volume 97.2 FL 96.7 FL 97.1 FL Mean Corpuscular Hemoglobin 32.6 PG 31.8 PG 31.5 PG Mean Corpuscular Hemoglobin 33.5 % 32.9 % 32.4 % Concent Red Cell Distribution Width 16.3 % 15.6 % 15.8 % Platelet Count 322 TH/MM3 300 TH/MM3 213 TH/MM3 Mean Platelet Volume 7.7 FL 7.6 FL 7.4 FL Neutrophils (%) (Auto) 69.3 % 88.4 % 80.8 % Lymphocytes (%) (Auto) 17.3 % 4.4 % 8.8 % Monocytes (%) (Auto) 10.7 % 6.4 % 9.1 % Eosinophils (%) (Auto) 2.0 % 0.4 % 0.4 % Basophils (%) (Auto) 0.7 % 0.4 % 0.9 % Neutrophils # (Auto) 3.8 TH/MM3 9.8 TH/MM3 5.4 TH/MM3 Lymphocytes # (Auto) 0.9 TH/MM3 0.5 TH/MM3 0.6 TH/MM3 Monocytes # (Auto) 0.6 TH/MM3 0.7 TH/MM3 0.6 TH/MM3 Eosinophils # (Auto) 0.1 TH/MM3 0.0 TH/MM3 0.0 TH/MM3 Basophils # (Auto) 0.0 TH/MM3 0.0 TH/MM3 0.1 TH/MM3 CBC Comment DIFF FINAL DIFF FINAL DIFF FINAL Differential Comment Prothrombin Time 11.8 SEC 11.5 SEC Prothromb Time International 1.1 RATIO 1.0 RATIO Ratio Activated Partial 38.3 SEC 25.9 SEC 36.9 SEC Thromboplast Time Sodium Level 140 MEQ/L 136 MEQ/L Potassium Level 3.5 MEQ/L 4.5 MEQ/L Chloride Level 99 MEQ/L 100 MEQ/L Carbon Dioxide Level 28.4 MEQ/L 26.4 MEQ/L Anion Gap 13 MEQ/L 10 MEQ/L Blood Urea Nitrogen 26 MG/DL 33 MG/DL Creatinine 7.24 MG/DL 7.99 MG/DL Estimat Glomerular Filtration 8 ML/MIN 7 ML/MIN Rate Random Glucose 171 MG/DL 121 MG/DL Calcium Level 9.9 MG/DL 10.4 MG/DL 9.7 MG/DL Magnesium Level 2.2 MG/DL 2.8 MG/DL 2.7 MG/DL Total Bilirubin 0.5 MG/DL 0.5 MG/DL Aspartate Amino Transf 62 U/L 39 U/L (AST/SGOT) Alanine Aminotransferase 28 U/L 23 U/L (ALT/SGPT) Alkaline Phosphatase 97 U/L 75 U/L Total Creatine Kinase 44 U/L 56 U/L Troponin I 1.26 NG/ML 1.24 NG/ML Total Protein 7.0 GM/DL 6.0 GM/DL Albumin 3.1 GM/DL 2.6 GM/DL Bedside Hemoglobin 8.8 G/DL Bedside Hematocrit 26.0 % Bedside Sodium 138 MMOL/L Bedside Potassium 3.4 MMOL/L Bedside Chloride 100 MMOL/L Bedside Blood Urea Nitrogen 27 MG/DL Bedside Creatinine 7.3 MG/DL Bedside Glucose 178 MG/DL B-Type Natriuretic Peptide 1688 PG/ML Blood Type O POSITIVE Antibody Screen NEGATIVE Nasal Screen MRSA (PCR) MRSA DETECTED Test 11/17/16 07:13 Blood Type O POSITIVE Crossmatch Leukocyte-Reduced Red Blood Cells Blood Bank Comment Imaging Last 48 hours Impressions Chest X-Ray 11/16/16 1240 Signed Impressions: Service Date/Time: Wednesday, November 16, 2016 12:41 - CONCLUSION: Basilar airspace disease suspected, mild. This is a change from the previous study. Steve Yates MD Lung Scan Nuclear Medicine 11/16/16 0000 Signed Impressions: Service Date/Time: Wednesday, November 16, 2016 16:52 - CONCLUSION: Negative for pulmonary embolism. Kei Gu MD Assessment and Plan Problem List: (1) Aortic stenosis Assessment and Plan: At least mild. (2) Ventricular fibrillation Assessment and Plan: Probably due to ischemia (3) 3-vessel coronary artery disease Assessment and Plan: Severe. 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 Rec ligation during CABG (5) Cardiopulmonary arrest with successful resuscitation (6) Elevated troponin I level Assessment and Plan: Due to NSTEMI (7) Non-STEMI (non-ST elevated myocardial infarction) Assessment and Plan: secondary to occluded diagonal. EF in 40's (8) First degree AV block Assessment and Plan Beta lobo reduced to 25 mg bid. Await ID consult Issac Bucio MD Nov 17, 2016 11:17
[2016-11-17] MEDS ORDERED: CHLORHEXIDINE GLUCONATE 4% SOLN 120 ML BTL TOPICAL SCH (11:45)
[2016-11-17] MEDS ORDERED: SODIUM CHLORIDE 0.9% FLUSH 10 ML FLUSH IV FLUSH PRN ×2 (11:45→14:30)
[2016-11-17] MEDS ORDERED: INSULIN REGULAR (IV INFUSION) 100 UNITS in SODIUM CHLORIDE 0.9% INJ 100 ML IV SCH (11:45)
[2016-11-17] MEDS ORDERED: VANCOMYCIN INJ 1,000 MG in SODIUM CHLOR 0.9% 250 ML INJ 250 ML IV SCH (11:45)
[2016-11-17] MEDS ORDERED: VANCOMYCIN INJ 1,000 MG in SODIUM CHLORIDE 0.9% IRR BTL 1,000 ML IRRIGATION SCH (11:45)
[2016-11-17] MEDS ORDERED: PAPAVERINE INJ 60 MG, NITROGLYCERIN INJ 100 MCG, DILTIAZEM INJ 100 MG in SODIUM CHLORID... IRRIGATION SCH (11:45)
[2016-11-17] MEDS: MUPIROCIN 2% OINT 1 APPLIC/GM SYR EACH NARE SCH ×2 (12:54→21:33)
[2016-11-17 13:01] LABS: APTT (PATIENT) 42.2 SEC (24.3-30.1)
[2016-11-17 13:02] LABS: HEMOGLOBIN A1a 1.9 %; HEMOGLOBIN A1b 0.9 %; HEMOGLOBIN Ao 83.2 %; HEMOGLOBIN F 1.5 %; HEMOGLOBIN LA1C 2.3 %; HEMOGLOBIN P3 5.8 %
[2016-11-17 13:19] LABS: INTERNATIONAL NORMALIZED RATIO 1.1 RATIO; PROTHROMBIN TIME - PATIENT 12.7 SEC (9.8-11.6)
--- NOTE | 2016-11-17 13:25 | PD.ID.CON ---
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 Primary Care Physician Andres Alvarenga MD (Paul) Diagnoses: History of Present Illness Mr. Conrad is a 71-year-old occasional male with past medical history significant for end-stage renal disease on hemodialysis using an AV fistula. His past medical history is also significant for multiple infections likely related to Hemodialysis access site. Upon review of medical records it appears that in March 2015 patient had group B strep bacteremia. In February 2016 patient had MSSA bacteremia. 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 Upon review of the medical records it appears that patient was being seen by Dr. Farmer of infectious disease and the plan was to treat him for 12 weeks with IV vancomycin as well as rifampin. Patient reports having seen Dr. Mckeon of infectious diseases outpatient for follow-up. At the present time I do not have the records of his vancomycin levels or any other workup done as outpatient during this course of treatment. Patient reports to me that he is now into week 3 of his vancomycin IV and rifampin oral treatment. Patient reports to me that last week he had pain in his back which was new despite being on IV antibiotics. Patient reports compliance with his hemodialysis sessions. Patient also sees Dr. Nav Dean every 3 months for his dialysis access site maintenance. Upon discussion with the patient reports no issues with his IV access site recently. Patient was brought in from his dialysis session to the emergency room at [facility] when he suddenly became unresponsive. On seeing providers provided CPR for approximately 5 minutes. He underwent defibrillation twice and had a return of spontaneous circulation per ER documentation. The patient reports that he felt sleepy this morning and believes he may actually have been following asleep during dialysis on multiple occasions. Patient reports that he has been told that he may have sleep apnea but this remains to be confirmed. EMS reported that on scene his blood pressure 121 27 x 80 and a heart rate of 110 sinus tachycardia. Occasional PVCs were observed as well. Patient's fasting blood sugar was 168. The dialysis session was about 50% complete when he turned in his unresponsive and was brought to the emergency room. On evaluation in the ER patient was completely asymptomatic without any chest pain. [facility] and was evaluated by Dr. Craig from cardiology. Patient was initiated on amiodarone drip and subsequently proceeded for VQ scan where he had another episode of V. tach arrest, CODE BLUE cardiac arrest code was activated. Patient was shocked out of the V. tach had about 2.5 minutes of CPR at that time. Shortly following patient's arrival to ICU he had a third episode where he became unresponsive and went into V. tach arrest. CPR/ACLS protocol initiated, patient converted spontaneously to sinus rhythm prior to defibrillation and became responsive. He denied any chest pain or shortness of breath following regaining of consciousness. Patient was given amiodarone 300 mg IV bolus following third episode of V. tach along with 2 g of magnesium sulfate IV push as well as [address] Bucio of cardiology performed and there was a 3 cm distal aneurysm noted. 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 I discussed the case with Dr. Bucio as well as . Given the patient's history of being treated for MRSA spinal osteomyelitis the aneurysm could possibly be infected/mycotic. I also discussed case with Dr.Danny Dean and he was ok with me ordering an MRI spine without contrast given new back pain. Review of Systems Constitutional: DENIES: Diaphoretic episodes, Fatigue, Fever, Weight gain, Weight loss, Chills, Dizziness, Change in appetite, Night Sweats Endocrine: DENIES: Heat/cold intolerance, Polydipsia, Polyuria, Polyphagia Eyes: DENIES: Blurred vision, Diplopia, Eye inflammation, Eye pain, Vision loss , Photosensitivity, Double Vision Ears, nose, mouth, throat: DENIES: Tinnitus, Hearing loss, Vertigo, Nasal discharge, Oral lesions, Throat pain, Hoarseness, Ear Pain, Running Nose, Epistaxis, Sinus Pain, Toothache, Odynophagia Respiratory: DENIES: Apneas, Cough, Snoring, Wheezing, Hemoptysis, Sputum production, Shortness of breath Cardiovascular: DENIES: Chest pain, Palpitations, Syncope, Dyspnea on Exertion , PND, Lower Extremity Edema, Orthopnea, Claudication Gastrointestinal: DENIES: Abdominal pain, Black stools, Bloody stools, Constipation, Diarrhea, Nausea, Vomiting, Difficulty Swallowing, Anorexia Genitourinary: DENIES: Sexual dysfunction, Urinary frequency, Urinary incontinence, Urgency, Hematuria, Dysuria, Nocturia, Penile Discharge, Testicular Pain, Testicular Swelling Musculoskeletal: COMPLAINS OF: Back pain, DENIES: Joint pain, Muscle aches, Stiffness, Joint Swelling, Neck pain Integumentary: DENIES: Abnormal pigmentation, Nail changes, Pruritus, Rash Hematologic/lymphatic: DENIES: Bruising, Lymphadenopathy Immunologic/allergic: DENIES: Eczema, Urticaria Neurologic: DENIES: Abnormal gait, Headache, Localized weakness, Paresthesias, Seizures, Speech Problems, Tremor, Poor Balance Psychiatric: DENIES: Anxiety, Confusion, Mood changes, Depression, Hallucinations, Agitation, Suicidal Ideation, Homicidal Ideation, Delusions Except as stated in HPI: all other systems reviewed are Neg Past Family Social History Allergies: Coded Allergies: *MDRO Multi-Drug Resistant Organism (Verified Adverse Reaction, Unknown, ) MRSA PCR screen POSITIVE - 03/13/16 MRSA (blood)-10/29/16 Past Medical History Prior history of infections as described in history of present illness No known history of endocarditis in the past. 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 Coronary artery disease High cholesterol Anemia of chronic disease Past Surgical History Umbilical hernia repair Cardiac catheterization Left arm AV shunt for dialysis Reported Medications Reported Meds & Active Scripts Active Velphoro (Sucroferric Oxyhydroxide) 500 Mg Chew 500 Mg CHEW TIDPC Rifampin 150 Mg Cap 300 Mg PO Q12HR Percocet (Oxycodone-Acetaminophen) 5-325 mg Tab 1 Tab PO Q6H PRN Reported Temazepam 30 Mg Cap 30 Mg PO HS PRN Vielka-Jitendra (B-Complex W/ C & Folic Acid) 1 Tab 1 Tab PO DAILY Fish Oil 1000 mg (Bigelow-3 Fatty Acids) 1 Cap Cap Unknown Dose PO DAILY Aspirin 325 Mg Tab 325 Mg PO DAILY Colace (Docusate Sodium) 100 Mg Capsule 100 Mg PO DAILY Sensipar (Cinacalcet) 60 Mg Tab 60 Mg PO DAILY@1600 Calcitriol 0.5 Mcg Cap 0.5 Mcg PO DAILY Vanco in HD Active Ordered Medications Current Medications Medications (Trade) Dose Ordered Sig/Zenobia Route Start Time Stop Time Status Last Admin Amiodarone HCl 450 mg/Dextrose 250 ml @ 0 mls/hr CONTINUOUS IV 11/16/16 16:15 11/17/16 02:43 (NS 1000 ml Inj) 1,000 ml @ 15 mls/hr Q24H IV 11/16/16 17:00 11/16/16 21:17 (NS Flush) 2 ml UNSCH PRN IV FLUSH 11/16/16 16:15 (NS Flush) 2 ml BID IV FLUSH 11/16/16 21:00 11/17/16 09:49 (Tylenol) 650 mg Q4H PRN PO 11/16/16 16:15 (Narcan Inj) 0.4 mg UNSCH PRN IV 11/16/16 16:15 (Indu-Colace) 1 tab BID PO 11/16/16 21:00 11/17/16 09:49 (Milk Of Magnesia Liq) 30 ml Q12H PRN PO 11/16/16 16:15 (Senokot) 17.2 mg Q12H PRN PO 11/16/16 16:15 (Dulcolax Supp) 10 mg DAILY PRN RECTAL 11/16/16 16:15 (Lactulose Liq) 30 ml DAILY PRN PO 11/16/16 16:15 (Aspirin) 325 mg DAILY PO 11/17/16 09:00 11/17/16 09:49 (Rocaltrol) 0.5 mcg DAILY PO 11/17/16 09:00 11/17/16 09:48 (Percocet 5-325 Mg) 1 tab Q6H PRN PO 11/16/16 16:15 (Rifampin) 300 mg Q12HR PO 11/16/16 21:00 11/17/16 09:49 (Restoril) 30 mg HS PRN PO 11/16/16 16:15 (Nephrocaps) 1 cap DAILY PO 11/17/16 09:00 11/17/16 09:48 (Sensipar) 60 mg DAILY@16 PO 11/17/16 16:00 Patient Own Medication PT OWN MED:VELPHORO(SUCROFERRIC OXYHYDROXIDE)500... TIDAC OTHER 11/17/16 08:00 Hold (D50w (Vial) Inj) 50 ml UNSCH PRN IV 11/16/16 17:30 (Glucagon Inj) 1 mg UNSCH PRN OTHER 11/16/16 17:30 (Heparin Inj) 5,000 units UNSCH PRN IV 11/17/16 02:30 Heparin Sodium (Porcine) 2500 units 2,500 units UNSCH PRN IV 11/17/16 02:30 11/17/16 04:55 Heparin Sodium/ Dextrose 250 ml @ 0 mls/hr TITRATE IV 11/16/16 20:30 11/16/16 21:19 (Nitroglycerin-Dextrose Inj) 250 ml @ 0 mls/hr TITRATE IV 11/16/16 20:30 Ondansetron HCl 4 mg 4 mg Q4H PRN IV 11/16/16 20:30 (NS 250 ml Inj) 250 ml @ 15 mls/hr ONCE ONCE IV 11/17/16 07:00 11/17/16 23:39 11/17/16 08:51 (Lopressor) 25 mg BID PO 11/17/16 21:00 (NS Flush) 2 ml BID IV FLUSH 11/17/16 21:00 (NS Flush) 2 ml UNSCH PRN IV FLUSH 11/17/16 11:45 Mupirocin 1 applic 1 applic BID EACH NARE 11/17/16 11:45 11/22/16 11:44 11/17/16 12:54 (Cubicin Inj/NS Inj) 100 ml @ 200 mls/hr Q24H IV 11/17/16 15:00 Family History Father 95 yrs old and healthy Mother details not known Brothers ok. Son healthy Social History Lives in [facility]. He rents part of his home to a couple. Father lives in [facility]. Son lives in [place]. Alcohol Use: Yes (Rarely) Tobacco Use: No Substance Use: No Physical Exam Vital Signs Vital Signs Date Time Temp Pulse Resp B/P Pulse Ox O2 Delivery O2 Flow Rate FiO2 11/17/16 07:00 66 11/17/16 07:00 97.7 66 20 107/73 99 11/17/16 07:00 99 Nasal Cannula 4.00 11/17/16 04:00 98 Nasal Cannula 4.00 11/17/16 04:00 64 11/17/16 04:00 97.6 69 18 102/72 99 11/17/16 00:00 98 Nasal Cannula 4.00 11/17/16 00:00 68 11/17/16 00:00 68 16 95/64 98 11/16/16 23:00 98 Nasal Cannula 4.00 11/16/16 21:00 97.4 67 18 100/71 99 11/16/16 21:00 66 11/16/16 21:00 99 Nasal Cannula 2.00 11/16/16 20:51 99 Nasal Cannula 2.00 11/16/16 18:13 100 Nasal Cannula 5.00 11/16/16 17:30 97.7 102 30 129/89 93 11/16/16 17:30 100 Non-Rebreather 10.00 11/16/16 16:23 68 21 121/74 96 Room Air 11/16/16 15:16 76 17 108/57 97 Room Air 11/16/16 15:10 76 17 97/54 97 Room Air Physical Exam GENERAL: This is a well-nourished, well-developed patient, in no apparent distress. SKIN: No rashes, ecchymoses or lesions. Cool and dry. HEAD: Atraumatic. Normocephalic. No temporal or scalp tenderness. EYES: Pupils equal round and reactive. Extraocular motions intact. No scleral icterus. No injection or drainage. ENT: Nose without bleeding, purulent drainage or septal hematoma. Throat without erythema, tonsillar hypertrophy or exudate. Uvula midline. Airway patent. NECK: Trachea midline. Supple, nontender, no meningeal signs. CARDIOVASCULAR: HS audible. RESPIRATORY: Clear to auscultation. Breath sounds equal bilaterally. No wheezes , rales, or rhonchi. GASTROINTESTINAL: Abdomen soft, non-tender, nondistended. MUSCULOSKELETAL: Extremities without clubbing, cyanosis, or edema. No joint tenderness, effusion, or edema noted. No calf tenderness. Negative Homans sign bilaterally. NEUROLOGICAL: Awake and alert. Grossly non focal Psych: cooperative IV line sites with no e.o infection. Laboratory Laboratory Tests Test 11/16/16 11/16/16 11/17/16 11/17/16 18:58 23:15 03:37 07:13 White Blood Count 11.1 6.7 Red Blood Count 2.59 2.38 Hemoglobin 8.2 7.5 Bedside Hemoglobin 8.8 Hematocrit 25.0 23.2 Bedside Hematocrit 26.0 Mean Corpuscular Volume 96.7 97.1 Mean Corpuscular Hemoglobin 31.8 31.5 Mean Corpuscular Hemoglobin 32.9 32.4 Concent Red Cell Distribution Width 15.6 15.8 Platelet Count 300 213 Mean Platelet Volume 7.6 7.4 Neutrophils (%) (Auto) 88.4 80.8 Lymphocytes (%) (Auto) 4.4 8.8 Monocytes (%) (Auto) 6.4 9.1 Eosinophils (%) (Auto) 0.4 0.4 Basophils (%) (Auto) 0.4 0.9 Neutrophils # (Auto) 9.8 5.4 Lymphocytes # (Auto) 0.5 0.6 Monocytes # (Auto) 0.7 0.6 Eosinophils # (Auto) 0.0 0.0 Basophils # (Auto) 0.0 0.1 CBC Comment DIFF FINAL DIFF FINAL Differential Comment Prothrombin Time 11.5 Prothromb Time International 1.0 Ratio Activated Partial 25.9 36.9 Thromboplast Time Bedside Sodium 138 Bedside Potassium 3.4 Bedside Chloride 100 Bedside Blood Urea Nitrogen 27 Bedside Creatinine 7.3 Bedside Glucose 178 Calcium Level 10.4 9.7 Magnesium Level 2.8 2.7 Total Creatine Kinase 56 Troponin I 1.24 1.45 B-Type Natriuretic Peptide 1688 Blood Type O POSITIVE O POSITIVE Antibody Screen NEGATIVE Nasal Screen MRSA (PCR) MRSA DETECTED Sodium Level 136 Potassium Level 4.5 Chloride Level 100 Carbon Dioxide Level 26.4 Anion Gap 10 Blood Urea Nitrogen 33 Creatinine 7.99 Estimat Glomerular Filtration 7 Rate Random Glucose 121 Total Bilirubin 0.5 Aspartate Amino Transf 39 (AST/SGOT) Alanine Aminotransferase 23 (ALT/SGPT) Alkaline Phosphatase 75 Total Protein 6.0 Albumin 2.6 Crossmatch Leukocyte-Reduced Red Blood Cells Blood Bank Comment Test 11/17/16 11/17/16 11:43 12:16 Crossmatch Leukocyte-Reduced Red Blood Cells Blood Bank Comment Prothrombin Time 12.7 Prothromb Time International 1.1 Ratio Activated Partial 42.2 Thromboplast Time Date/Time Procedure Status Source Growth 11/16/16 16:05 Aerobic Blood Culture - Preliminary Resulted Blood Peripheral NO GROWTH IN 1 DAY 11/16/16 16:05 Anaerobic Blood Culture - Preliminary Resulted Blood Peripheral NO GROWTH IN 1 DAY Result Diagram: 11/17/16 0337 11/17/16 0337 Imaging Last Impressions Chest X-Ray 11/16/16 1240 Signed Impressions: Service Date/Time: Wednesday, November 16, 2016 12:41 - CONCLUSION: Basilar airspace disease suspected, mild. This is a change from the previous study. Steve Yates MD Lung Scan Nuclear Medicine 11/16/16 0000 Signed Impressions: Service Date/Time: Wednesday, November 16, 2016 16:52 - CONCLUSION: Negative for pulmonary embolism. 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 CAD h/o code blue this admission. Recs: Daptomycin 10 mg/kg IV q 48 hours, 1st dose now. (ASP: Clinical Suspected Vanco failure, Vanco ANGELO 2 on last blood culture) Continue Rifampin. Check CRP MRI L-,C-,T-Spine to workup for any drainable foci given new back pain and possibility of surgery early next week. D/w Dr.Danny Dean about MRI non contrast Dw Radiology about optimal imaging technique. d.w RN D.w Will d/w CTS about sending a coronary segment intraop (if possible) to pathology and microbiology to confirm the diagnosis of coronary mycotic aneurysm. Follow cultures Follow clinically. Jemma Moreno MD Nov 17, 2016 13:25
--- NOTE | 2016-11-17 13:28 | EKG ---
Date Performed: 11/16/2016 Time Performed: 14:12:50 PTAGE: 71 years EKG: SINUS TACHYCARDIA INTRAVENTRICULAR CONDUCTION DELAY ABNORMAL ECG PREVIOUS TRACING : 11/16/2016 12.40 Compared to prior tracing no significant change DOCTOR: Krystal Kee Interpretating Date/Time 11/17/2016 13:21:16
--- NOTE | 2016-11-17 13:28 | EKG ---
Date Performed: 11/17/2016 Time Performed: 06:15:08 PTAGE: 71 years EKG: Possible ectopic atrial rhythm IV conduction defect Abnormal ECG PREVIOUS TRACING : 11/16/2016 17.27 Compared to prior tracing no significant change DOCTOR: Krystal Kee Interpretating Date/Time 11/17/2016 13:21:25
--- NOTE | 2016-11-17 14:17 | EKG ---
Date Performed: 11/16/2016 Time Performed: 12:40:09 PTAGE: 71 years EKG: Supraventricular tachycardia of uncertain mechanism as there is too much baseline artifact to determine the rhythm. A repeat tracing is advised. PREMATURE COMPLEXES INTRAVENTRICULAR CONDUCTION DELAY ABNORMAL ECG PREVIOUS TRACING 11/01/2016 Since the prior tracing, there is improvement in the ST segment de pression in V4-V6 and an increase in the supraventricular rate. DOCTOR: Krystal Kee Interpretating Date/Time 11/17/2016 14:15:59
--- NOTE | 2016-11-17 14:19 | EKG ---
Date Performed: 11/16/2016 Time Performed: 17:27:36 PTAGE: 71 years EKG: Probable sinus tachycardia although the artifact in the tracing makes it difficult to preci sely determine the rhythm IV conduction defect Possible left ventricular hypertrophy Lateral ST-T brennon nges are probably due to ventricular hypertrophy Abnormal ECG PREVIOUS TRACING : 11/16/2016 14.12 There appears to be organized atrial activity at least in l ead V2. Since the prior tracing, there has been no significant serial change. DOCTOR: Krystal Kee Interpretating Date/Time 11/17/2016 14:17:45
[2016-11-17] MEDS ORDERED: SODIUM CHLOR 0.9% 1000 ML INJ 1,000 ML IV PRN ×3 (14:23)
[2016-11-17] MEDS ORDERED: GELATIN 12 MM/7 MM FOAM TOP PRN (14:30)
[2016-11-17] MEDS ORDERED: GENTAMICIN SULFATE (DIALYSIS USE ONLY) 20 MG/2 ML VIAL IV PRN (14:30)
[2016-11-17] MEDS ORDERED: ONDANSETRON HCL 4 MG/2 ML VIAL IV PRN (14:30)
[2016-11-17] MEDS ORDERED: HEPARIN SODIUM - IV 10,000 UNITS/10 ML VIAL PRN (14:30)
[2016-11-17] MEDS ORDERED: diphenhydrAMINE HCL 25 MG CAP PO PRN (14:30)
[2016-11-17] MEDS ORDERED: ACETAMINOPHEN 325 MG TAB PO PRN (14:30)
[2016-11-17] MEDS ORDERED: cloNIDine HCL 0.1 MG TAB PO PRN (14:30)
[2016-11-17] MEDS ORDERED: MANNITOL 12.5 GM/50 ML VIAL IV PRN (14:30)
[2016-11-17] MEDS ORDERED: NITROGLYCERIN 0.4 MG SL 25 TABS/BTL SL PRN (14:30)
[2016-11-17] MEDS ORDERED: ALBUMIN HUMAN 25% 25 GM/100 ML BAGP IV PRN (14:30)
[2016-11-17] MEDS ORDERED: HEPARIN SODIUM - IV 10,000 UNITS/10 ML VIAL IVF PRN (14:30)
[2016-11-17] MEDS ORDERED: DAPTOMYCIN IV ONE (15:00)
[2016-11-17] MEDS ORDERED: SODIUM CHLORIDE 0.9% IV ONE (15:00)
[2016-11-17] MEDS ORDERED: SODIUM CHLORIDE 0.9% IV SCH (15:00)
[2016-11-17] MEDS ORDERED: DAPTOMYCIN IV SCH (15:00)
[2016-11-17 15:28] LABS: HEMATOCRIT 30.1 % (39.0-51.0); REVIEW FLAG FINAL
--- NOTE | 2016-11-17 15:32 | HHI.PR ---
Subjective Remarks Patient is feeling okay Offering no complaint no chest pain shortness of breath nausea or vomiting No abdominal pain Review of system for 12 point system otherwise unremarkable Objective Objective Results - Vital Signs Date Time Temp Pulse Resp B/P Pulse Ox O2 Delivery O2 Flow Rate FiO2 11/17/16 11:00 99 Nasal Cannula 4.00 11/17/16 11:00 62 11/17/16 11:00 98.2 62 20 115/76 99 11/17/16 09:30 99 Nasal Cannula 4.00 11/17/16 07:00 66 11/17/16 07:00 97.7 66 20 107/73 99 11/17/16 07:00 99 Nasal Cannula 4.00 11/17/16 04:00 98 Nasal Cannula 4.00 11/17/16 04:00 64 11/17/16 04:00 97.6 69 18 102/72 99 11/17/16 00:00 98 Nasal Cannula 4.00 11/17/16 00:00 68 11/17/16 00:00 68 16 95/64 98 11/16/16 23:00 98 Nasal Cannula 4.00 11/16/16 21:00 97.4 67 18 100/71 99 11/16/16 21:00 66 11/16/16 21:00 99 Nasal Cannula 2.00 11/16/16 20:51 99 Nasal Cannula 2.00 11/16/16 18:13 100 Nasal Cannula 5.00 11/16/16 17:30 97.7 102 30 129/89 93 11/16/16 17:30 100 Non-Rebreather 10.00 11/16/16 16:23 68 21 121/74 96 Room Air I/O 11/16/16 11/16/16 11/16/16 11/17/16 11/17/16 11/17/16 07:00 15:00 23:00 07:00 15:00 23:00 Intake Total 1346 ml Output Total 0 ml Balance 1346 ml Intake Oral 240 ml IV Total 1106 ml Output Urine Total 0 ml # Bowel Movements 0 Result Diagram: 11/17/16 0337 11/17/16 0337 Other Results Laboratory Tests Test 11/16/16 11/16/16 11/17/16 11/17/16 18:58 23:15 03:37 07:13 White Blood Count 11.1 6.7 Red Blood Count 2.59 2.38 Hemoglobin 8.2 7.5 Bedside Hemoglobin 8.8 Hematocrit 25.0 23.2 Bedside Hematocrit 26.0 Mean Corpuscular Volume 96.7 97.1 Mean Corpuscular Hemoglobin 31.8 31.5 Mean Corpuscular Hemoglobin 32.9 32.4 Concent Red Cell Distribution Width 15.6 15.8 Platelet Count 300 213 Mean Platelet Volume 7.6 7.4 Neutrophils (%) (Auto) 88.4 80.8 Lymphocytes (%) (Auto) 4.4 8.8 Monocytes (%) (Auto) 6.4 9.1 Eosinophils (%) (Auto) 0.4 0.4 Basophils (%) (Auto) 0.4 0.9 Neutrophils # (Auto) 9.8 5.4 Lymphocytes # (Auto) 0.5 0.6 Monocytes # (Auto) 0.7 0.6 Eosinophils # (Auto) 0.0 0.0 Basophils # (Auto) 0.0 0.1 CBC Comment DIFF FINAL DIFF FINAL Differential Comment Prothrombin Time 11.5 Prothromb Time International 1.0 Ratio Activated Partial 25.9 36.9 Thromboplast Time Bedside Sodium 138 Bedside Potassium 3.4 Bedside Chloride 100 Bedside Blood Urea Nitrogen 27 Bedside Creatinine 7.3 Bedside Glucose 178 Calcium Level 10.4 9.7 Magnesium Level 2.8 2.7 Total Creatine Kinase 56 64 Troponin I 1.24 1.45 B-Type Natriuretic Peptide 1688 Blood Type O POSITIVE O POSITIVE Antibody Screen NEGATIVE Nasal Screen MRSA (PCR) MRSA DETECTED Sodium Level 136 Potassium Level 4.5 Chloride Level 100 Carbon Dioxide Level 26.4 Anion Gap 10 Blood Urea Nitrogen 33 Creatinine 7.99 Estimat Glomerular Filtration 7 Rate Random Glucose 121 Total Bilirubin 0.5 Aspartate Amino Transf 39 (AST/SGOT) Alanine Aminotransferase 23 (ALT/SGPT) Alkaline Phosphatase 75 Total Protein 6.0 Albumin 2.6 Crossmatch Leukocyte-Reduced Red Blood Cells Blood Bank Comment Test 11/17/16 11/17/16 11:43 12:16 Crossmatch Leukocyte-Reduced Red Blood Cells Blood Bank Comment Prothrombin Time 12.7 Prothromb Time International 1.1 Ratio Activated Partial 42.2 Thromboplast Time Date/Time Procedure Status Source Growth 11/16/16 16:05 Aerobic Blood Culture - Preliminary Resulted Blood Peripheral NO GROWTH IN 1 DAY 11/16/16 16:05 Anaerobic Blood Culture - Preliminary Resulted Blood Peripheral NO GROWTH IN 1 DAY Physical Exam Physical Exam GENERAL: Well-developed white male looks to be his stated age resting on a Bed currently alert and able to respond and give symptomatic information. SKIN: Skin color is lindy. The mucous membranes are pale-pink. HEAD, EYES, EARS, NOSE, THROAT: Pupils equal, round and reactive to light and accommodation. NECK: The neck is supple. CARDIOVASCULAR: S1 and S2. Heart sounds are distant but a mild murmur is detected. He has a trace of edema in his lower extremities bilaterally. They are warm to touch. PULMONARY: Lung sounds essentially clear anteriorly and posteriorly with no wheezes or rhonchi. He does have some diminished sounds in his bases. ABDOMEN: Flat, soft, nontender, nondistended. Bowel sounds are soft but active. MUSCULOSKELETAL: Moving his extremities with purpose. 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 No obvious deformities. NEUROLOGIC: He is now alert, understands where he is and can give symptomatic information on recent events. PSYCHIATRIC: Mood and affect are appropriate. A/P Assessment and Plan 1. Cardiopulmonary arrest x3 with successful resuscitation. One event was in the field at the dialysis center and the other event was here in the Hospital. 2. End-stage renal disease on hemodialysis. 3. History of hypertension. 4. Anemia. 5. Pre-diabetes. 6. Dysrhythmias. 7. Rule out myocardial infarction. PLAN: Seen in CVICU Labs reviewed Leukocytosis improved Anemia for blood transfusion Increased troponin likely secondary to shock during code Status post cardiac catheterization report reviewed and discussed with Dr. Bucio. 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 Antibiotic as per infectious disease Labs for tomorrow For MRI of back home medications have been reviewed and continued as needed. 02 therapy as needed. DVT prophylaxis. PRN medications for pain, nausea, bowel regimen. MRSA PCR surveillance. Will need contact isolation. Discussed with RN Discussed with patient Condition critical Prognosis guarded Alejandro Evans MD Nov 17, 2016 15:31
[2016-11-17] MEDS ORDERED: NON-FORMULARY DRUG (Cinacalcet (Sensipar) 60 MG) PO SCH (16:00)
--- NOTE | 2016-11-17 16:22 | RADRPT ---
EXAM DATE/TIME: 11/17/2016 15:18 [facility] COMPARISON: No previous studies available for comparison. INDICATIONS : Preop cardiac surgery. MEDICAL HISTORY : Myocardial infarction. Hypercholesterolemia. Arthritis. Irregular heartbeat. HTN. Dyspnea. Renal dise ase and failure. Diabetes. Anemia. Anticoagulant therapy, Aspirin 325mg. MRSA. SURGICAL HISTORY : Umbilical hernia repair. Peritoneal dialysis. ORIF left wrist. Rotator cuff repair. Left arm fistula. Blood transfusions. Cardiac cath. ENCOUNTER: Initial ACUITY: 1 day PAIN SCORE: 0/10 LOCATION: Bilateral leg. TECHNIQUE: Venous ultrasound of the left and right leg was performed from the inguinal ligament to the proximal calf. Real-time, color Doppler and spectral tracing, compression and augmentation techniques were us ed. FINDINGS: RIGHT LEG: There is normal compressibility of the deep venous system from the inguinal region to the proximal ca lf. No echogenic clot is seen in the lumen of the common femoral, femoral, popliteal, and posterior tibial veins. There is a normal response of the venous system to proximal and distal augmentation an d respiration. LEFT LEG: There is normal compressibility of the deep venous system from the inguinal region to the proximal ca lf. No echogenic clot is seen in the lumen of the common femoral, femoral, popliteal, and posterior tibial veins. There is a normal response of the venous system to proximal and distal augmentation an d respiration. CONCLUSION: No DVT. Geovanni Flanagan MD on November 17, 2016 at 16:19 Board Certified Radiologist. This report was verified electronically.
--- NOTE | 2016-11-17 16:24 | RADRPT ---
EXAM DATE/TIME: 11/17/2016 15:27 [facility] COMPARISON: No previous studies available for comparison. INDICATIONS : Preop cardiac surgery. MEDICAL HISTORY : Myocardial infarction. Hypercholesterolemia. Arthritis. Irregular heartbeat. HTN. Dyspnea. Renal dise ase and failure. Diabetes. Anemia. Anticoagulant therapy, Aspirin 325mg. MRSA. SURGICAL HISTORY : Umbilical hernia repair. Peritoneal dialysis. ORIF left wrist. Rotator cuff repair. Left arm fistul a. Blood transfusions. Cardiac cath. ENCOUNTER: Initial ACUITY: 1 day PAIN SCORE: 0/10 LOCATION: Bilateral leg. GREATER SAPHENOUS VEIN THIGH: PROXIMAL: Right 5 mm Left 6 mm MID: Right 3 mm Left 5 mm DISTAL: Right 3 mm Left 3 mm CALF: PROXIMAL: Right 3 mm Left 3 mm MID: Right 3 mm Left 2 mm DISTAL: Right 1 mm Left 2 mm FINDINGS: The venous system of the lower extremities are patent by color Doppler imaging. Measurements of the leg veins (in mm) are listed above. CONCLUSION: Venous mapping as delineated above. Geovanni Flanagan MD on November 17, 2016 at 16:21 Board Certified Radiologist. This report was verified electronically.
[2016-11-17] MEDS: CINACALCET HYDROCHLORIDE 30 MG TAB PO SCH (16:25)
--- NOTE | 2016-11-17 16:44 | RADRPT ---
EXAM DATE/TIME: 11/17/2016 15:05 [facility] COMPARISON: No previous studies available for comparison. INDICATIONS : Preop cardiac surgery. MEDICAL HISTORY : Myocardial infarction. Hypercholesterolemia. Arthritis. Irregular heartbeat. HTN. Dyspnea. Renal dise ase and failure. Diabetes. Anemia. Anticoagulant therapy, Aspirin 325mg. MRSA. SURGICAL HISTORY : Umbilical hernia repair. Peritoneal dialysis. ORIF left wrist. Rotator cuff repair. Left arm fist cora. Blood transfusions. Cardiac cath. ENCOUNTER: Initial ACUITY: 1 day PAIN SCORE: 0/10 LOCATION: Bilateral neck PEAK SYSTOLIC VELOCITIES (cm/sec): ICA/CCA RATIO: Right: 0.9 Left: 0.9 ICA: Right: 55 Left: 53 CCA: Right: 59 Left: 62 ECA: Right: 63 Left: 50 VERTEBRAL: Right: 29 antegrade Left: 37 antegrade Elevated flow velocities and ICA/CCA ratios have been found to correlate with increased degrees of vessel stenosis, calculated as percentage of diameter relative to a normal segment of distal ICA/CCA FINDINGS: RIGHT CAROTID: No significant stenosis is visualized. The waveforms are within normal limits. LEFT CAROTID: No significant stenosis is visualized. The waveforms are within normal limits. VERTEBRAL ARTERIES: Antegrade flow is seen in both vertebral arteries. MISCELLANEOUS: None. CONCLUSION: 1. Calcified plaque seen in the carotid arteries bilaterally, especially around the bifurcations. How ever, no hemodynamically significant stenosis is identified. Vertebral artery flow antegrade marlena kirkpatrick. Kei Gu MD on November 17, 2016 at 16:39 Board Certified Radiologist. This report was verified electronically.
[2016-11-17] MEDS: ACETAMINOPHEN 325 MG TAB PO PRN ×2 (16:48→21:42)
[2016-11-17] MEDS ORDERED: EPINEPHrine HCL (1:10,000) 1 MG/10 ML SYRINGE ONE (17:00)
[2016-11-17] MEDS ORDERED: ATROPINE SULFATE 1 MG/10 ML SYRINGE ONE (17:01)
--- NOTE | 2016-11-17 18:45 | RADRPT ---
EXAM DATE/TIME: 11/17/2016 17:29 [facility] COMPARISON: MRI THORACIC SPINE W/O CONTRAST, October 31, 2016, 10:15. INDICATIONS : Abscess. MEDICAL HISTORY : Renal failure, chronic. SURGICAL HISTORY : Umbilical hernia repair. Orthopaedic surgeries. ENCOUNTER: Initial ACUITY: 1 day PAIN SCORE: 4/10 LOCATION: Paraspinal TECHNIQUE: Multiplanar multisequence MRI of the thoracic spine was performed. FINDINGS: Comparison is October 31. Again seen is abnormal signal in T3 and T4 as well as abnormal signal in the i n the disc interspace characteristic of an evolving discitis and osteomyelitis. There is residual dis c disease at L3-4 effacing the anterior thecal sac. The previous epidural fluid collection extending from C3-C7 has resolved. Previous disc protrusion seen at T6-7 is stable. Currently no significant canal stenosis within the thoracic spine. No fracture or spondylolisthesis. No cord signal abnormality. CONCLUSION: 1. Resolution of previous epidural abscess. 2. Residual probable disc protrusion at T3-4 and T6-7 is stable. 3. Discitis and osteomyelitis at T3-4 with a relatively stable signal changes in the structures since October 31. Kei Gu MD on November 17, 2016 at 18:36 Board Certified Radiologist. This report was verified electronically.
--- NOTE | 2016-11-17 18:47 | RADRPT ---
EXAM DATE/TIME: 11/17/2016 17:29 [facility] COMPARISON: MRI CERVICAL SPINE W/O CONTRAST, October 31, 2016, 10:15. INDICATIONS : Abscess. MEDICAL HISTORY : Renal failure, chronic. SURGICAL HISTORY : Umbilical hernia repair. Orthopaedic surgeries. ENCOUNTER: Initial ACUITY: 1 day PAIN SCORE: 5/10 LOCATION: Paraspinal TECHNIQUE: Multiplanar, multisequence MRI examination of the cervical spine was performed. FINDINGS: Compare October 31. No significant abnormality at C2-3. Stable central disc osteophyte complex at C3-4. At C4-5, C5-6 and C6-7 as well as C7-T1 there are stable posterior disc osteophyte complexes. Mild ca nal stenosis at C5-6 is stable. No cord signal abnormality. No fracture or spondylolisthesis. CONCLUSION: 1. Stable moderate degenerative disc disease since October 31. Mild canal stenosis at C5-6. No cord sign al abnormality. No evidence for discitis or osteomyelitis of the cervical spine. Kei Gu MD on November 17, 2016 at 18:43 Board Certified Radiologist. This report was verified electronically.
--- NOTE | 2016-11-17 18:53 | RADRPT ---
EXAM DATE/TIME: 11/17/2016 17:29 [facility] COMPARISON: No previous studies available for comparison. INDICATIONS : Abscess. MEDICAL HISTORY : Renal failure, chronic. SURGICAL HISTORY : Umbilical hernia repair. Orthopaedic surgeries. ENCOUNTER: Initial ACUITY: 1 day PAIN SCORE: 4/10 LOCATION: Paraspinal TECHNIQUE: Multiplanar multisequence MRI of the lumbar spine was performed without contrast. FINDINGS: At T12-L1 there is a mild disc bulge without significant stenosis. At L1-2 there is a broad-based disc osteophyte complex resulting in a mild to moderate canal and fora maryann stenosis at this level. At L2-3, L3-4, L4-5 there are posterior disc osteophyte complexes that result in mild encroachment of the recesses. This also true at L5-S1. Please note that the disc interspaces are labeled differently from March 2015 based on the current thoracic spine MRI. Also previous epidural fluid collections have resolved. CONCLUSION: 1. Chronic disc degeneration at L1-2 with mild to moderate stenosis. No other significant canal steno sis. No evidence for acute discitis or osteomyelitis. Kei Gu MD on November 17, 2016 at 18:45 Board Certified Radiologist. This report was verified electronically.
--- NOTE | 2016-11-17 18:57 | RADRPT ---
EXAM DATE/TIME: 11/17/2016 18:23 [facility] COMPARISON: No previous studies available for comparison. INDICATIONS : Post code; congestive heart failure. RADIATION DOSE: 8.07 CTDIvol (mGy) MEDICAL HISTORY : Renal failure, chronic. Diabetes mellitus type 1. Hypertension. SURGICAL HISTORY : Umbilical hernia repair. ENCOUNTER: Initial ACUITY: 1 day PAIN SCALE: 0/10 LOCATION: chest TECHNIQUE: Volumetric scanning of the chest was performed. Using automated exposure control and adjustment of t he mA and/or kV according to patient size, radiation dose was kept as low as reasonably achievable to obtain optimal diagnostic quality images. DICOM format image data is available electronically for r eview and comparison. FINDINGS: There is a small right-sided pleural effusion and [id number] left pleural effusion with depend ent consolidation in both lungs. There is no pericardial effusion. There is severe coronary artery calcifications. No hilar, mediastinal axillary adenopathy. No acute findings in the upper abdomen. No acute bony abnormalities. CONCLUSION: 1. Small right-sided effusion and small to moderate left effusion. Right effusion is at least partial ly loculated. There is dependent consolidation and atelectasis in both lungs. No adenopathy or pneumo thorax. Kei Gu MD on November 17, 2016 at 18:52 Board Certified Radiologist. This report was verified electronically.
[2016-11-17] MEDS: SODIUM CHLOR 0.9% 1000 ML INJ 1,000 ML IV SCH (18:59)
[2016-11-17] MEDS: HEPARIN-D5W INJ 250 ML IV SCH (19:07)
--- NOTE | 2016-11-17 19:40 | MB ---
cc: CHRISTOPHER MCDONALD MD DATE OF CONSULTATION: 11/17/2016. REASON FOR CONSULTATION: End-stage renal disease management. HISTORY OF PRESENT ILLNESS: This is a 71-year-old male with history of end-stage renal disease on hemodialysis Friday, and Friday. The patient is followed up as an outpatient with Dr. Freire for his dialysis issues. The patient recently has been evaluated for multiple infections and had a recent diagnosis of MRSA bacteremia with apparent lumbar and thoracic diskitis and osteomyelitis. He is in week three apparently of outpatient treatment with vancomycin as well as rifampin. The patient was at his dialysis treatment on Friday. Approximately correction through his treatment after about an hour and a half, the patient had become unresponsive. Apparently he was defibrillated there and was coded. The patient was resuscitated and brought to the emergency room. When the patient was brought here to [facility], he again became unresponsive and had CPR for five more minutes with defibrillation twice with return of circulation. Subsequently the patient had a third episode later in the day in the ICU with CPR. All these times he was resuscitated back. The patient was seen with cardiology and had an urgent cardiac cath which revealed three-vessel disease. 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 The patient otherwise is stable at this point and is resting comfortably in his bed. His respiratory status has remained stable and he is being monitored in the cardiac ICU. The patient reports he had been feeling generally well prior to all these episodes. Yesterday he had some weakness at home and was looking forward to catching some rest and taking a nap at dialysis. Otherwise, he reports he has had some mild constipation but otherwise feels well. Nephrology was consulted for further evaluation of end-stage renal disease management. PAST MEDICAL HISTORY: Past medical history includes: 1. Previous infections with MSSA then MRSA attributed to diskitis and treatment on vancomycin. 2. No history of endocarditis in the past. 3. 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 4. History of coronary artery disease. 5. Dyslipidemia. 6. Anemia. 7. End-stage renal disease on dialysis Tuesdays, and Saturdays followed up with Dr. Freire as an outpatient. PAST SURGICAL HISTORY: His surgical history includes: 1. Umbilical hernia repair. 2. Left radiocephalic AV fistula. ALLERGIES NO KNOWN DRUG ALLERGIES. MEDICATIONS AT HOME: 1. Rifampin. 2. Percocet. 3. Temazepam. 4. Vitamin D. 5. Fish oil. 6. Aspirin. 7. Velphoro. 8. Colace. 9. Sensipar. 10. Calcium. SOCIAL HISTORY: Social alcohol use. No tobacco or drug use. The patient lives at home. REVIEW OF SYSTEMS: The patient denies any fevers, chills, no nausea, no vomiting, no diarrhea. The patient does report having some constipation. No current chest pains; however, did have previous chest tightness and dizziness at time of cardiac episodes. Otherwise review of systems is negative. PHYSICAL EXAMINATION: VITAL SIGNS: At the time of evaluation, temperature 98.2, pulse 62, respiratory 20, blood pressure 115/76, pulse ox 99% on 4 liters nasal cannula. GENERAL: Awake, alert, oriented, no apparent distress. HEAD, EYES, EARS, NOSE, THROAT / NECK: Soft supple. CARDIAC: Regular rate and rhythm. PULMONARY: Lungs clear auscultation. ABDOMEN: Soft, nontender, nondistended. EXTREMITIES: No edema. Left radiocephalic with good thrill at the fistula. LABORATORY FINDINGS: White count 6.7, hemoglobin 7.5, hematocrit 23.2 with platelet count of 213,000. Sodium 136, potassium of 4.5, chloride 100, bicarb 26.4, BUN 33, creatinine 7.99 with glucose of 121, magnesium 2.7, AST 39, ALT 23, alkaline phosphatase 75, albumin 2.6. ASSESSMENT AND PLAN: 1. End-stage renal disease: The patient has outpatient hemodialysis Friday, and Saturdays and is followed up with Dr. Freire. He had approximately 1-1/2 hours of hemodialysis on Friday when he developed a cardiac arrest. The patient was adequately resuscitated after several further arrests here in the hospital. At this point, the patient's volume status and electrolytes are stable. He is resting comfortably and breathing well without any respiratory issues. His volume status is stable. He is anuric; however, at this point I do not believe he needs any further hemodialysis at this point and it looks like he got adequate treatment on Friday. He apparently had a goal for 2 liters of ultrafiltration with his dialysis at that point. Continue monitor at this time. Would ideally further stabilize over the next 24 hours and may consider further dialysis on Friday prior to planned CABG surgery Friday. Continue to monitor volume status and electrolytes at this time. 2. Coronary artery disease with NSTEMI and ventricular tachycardia: The patient coded three times yesterday and was adequately resuscitated. At this point, he is resting comfortably. A cardiac catheterization reveals signs of triple-vessel disease and the plan is for a possible CABG on Friday. Continue medical management and continue to monitor. The patient was found to have 35% to 40% ejection fraction. 3. 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 The patient had been on Vancomycin as well as rifampin and was on week three of an apparent twelve weeks of therapy. The patient was seen with Dr. Moreno here. The plan is for repeat imaging of the spine given his apparent ongoing back pains. Avoid any gadolinium as possible with the risk of nephrogenic systemic fibrosis. Discussed with Dr. Moreno. CT with iodine contrast may be possible if necessary. However, a plain MRI has been ordered and will continue to follow results of that. 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 Continue to follow up with cardiology as well as infectious disease. 4. Anemia. The patient has a hemoglobin of 7.5. He was transfused one unit of blood, which was ordered for today. Continue to monitor hemoglobin as well as volume status. Can give Epogen with dialysis as well. MD STEFFANIE Meade/JOSE MIGUEL /2:54 PM /7:25 PM MARI
[2016-11-17 21:29] LABS: APTT (PATIENT) 33.1 SEC (24.3-30.1)
[2016-11-18] VITALS (9 sets, daily range): BP systolic 81–123; BP diastolic 51–73; PULSE 54–62; RESP 16–18; TEMP 97.5–98.2; O2SAT 97–99
[2016-11-18] MEDS ORDERED: MORPHINE SULFATE 4 MG/ML INJ IV PUSH PRN (03:00)
[2016-11-18] MEDS: oxyCODONE/ACETAMINOPHEN 10 MG/325 MG TAB PO PRN ×4 (03:04→21:32)
[2016-11-18 05:00] LABS: HEMATOCRIT 27.9 % (39.0-51.0); MEAN CELL VOLUME 95.6 FL (80.0-100.0); MEAN CORPUSCULAR HEMOGLOBIN 31.5 PG (27.0-34.0); MEAN CORPUSCULAR HGB CONC 32.9 % (32.0-36.0); PLATELET COUNT 216 TH/MM3 (150-450); RED BLOOD COUNT 2.92 MIL/MM3 (4.50-5.90); RED CELL DISTRIBUTION WIDTH 17.6 % (11.6-17.2); REVIEW FLAG FINAL; WHITE BLOOD COUNT 8.7 TH/MM3 (4.0-11.0)
[2016-11-18 05:14] LABS: APTT (PATIENT) 40.6 SEC (24.3-30.1)
[2016-11-18 06:54] LABS: BICARBONATE 24.4 MEQ/L (21.0-32.0); POTASSIUM 5.1 MEQ/L (3.5-5.1)
[2016-11-18] MEDS: INSULIN NovoLIN REGULAR SUPPLEMENTAL SCALE SQ SCH ×4 (07:00→21:39)
[2016-11-18] MEDS: MUPIROCIN 2% OINT 1 APPLIC/GM SYR EACH NARE SCH ×2 (08:07→20:51)
[2016-11-18] MEDS: VITAMIN B CMPLX/VITC/FOLIC AC CAP PO SCH (08:07)
[2016-11-18] MEDS: RIFAMPIN 150 MG CAP PO SCH ×2 (08:07→20:47)
[2016-11-18] MEDS: CALCITRIOL 0.25 MCG CAP PO SCH (08:08)
[2016-11-18] MEDS: ASPIRIN 325 MG TAB PO SCH (08:08)
[2016-11-18] MEDS: METOPROLOL TARTRATE 25 MG TAB PO SCH ×2 (08:30→20:47)
[2016-11-18] MEDS: DOCUSATE SODIUM 50 MG/SENNA 8.6 MG TAB PO SCH ×2 (08:31→20:47)
[2016-11-18] MEDS: SODIUM CHLORIDE 0.9% FLUSH 10 ML FLUSH IV FLUSH SCH ×3 (08:31→20:51)
[2016-11-18] MEDS: AMIODARONE INJ 450 MG in DEXTROSE 5% IN WATE(EXCEL) INJ 241 ML IV SCH ×2 (08:41)
--- NOTE | 2016-11-18 09:29 | HHI.CCPN ---
Subjective Remarks/Hospital Course 11/16: 71 years old male with ESRD on HD who was brought to ER from dialysis where he suddenly became unresponsive. On scene providers performed CPR for approximately 5 minutes. He underwent defibrillation twice and had a return of spontaneous circulation per ER documentation. The patient states he felt sleepy this morning and believes he may have actually fell asleep during dialysis. He does not recall the actual loss of consciousness. EMS reports that on scene he had a blood pressure 127/80 and a heart rate of 110 sinus tach. Occasional PVCs were observed. FS Glucose was 168. The dialysis session was about 50% complete when he became unresponsive and then was sent to the ER. On evaluation in the ER patient was completely asymptomatic without any chest pain. He was admitted by [facility] and was evaluated by Dr. Craig from cardiology. Patient was initiated on amiodarone drip and subsequently proceeded for VQ scan where he had another episode of V. tach arrest, CODE BLUE cardiac arrest code was activated. Patient was shocked out of the V. tach had about 2.5 minutes of CPR at that time. Subsequently he was transported to [facility] where I evaluated him immediately following his arrival. At that time patient was awake and alert and denied any chest pain or shortness of breath. He says that he passed out and does not recollect any other events. Shortly following patient's arrival to ICU he had a third episode where he became unresponsive and went into V. tach arrest. CPR/ACLS protocol initiated, patient converted spontaneously to sinus rhythm prior to defibrillation and became responsive. He denied any chest pain or shortness of breath following regaining of consciousness. Patient was given amiodarone 300 mg IV bolus following third episode of V. tach along with 2 g of magnesium sulfate IV push as well as 1 g of calcium chloride. Discussed with Dr. Craig followed by Dr. Issac Bucio from cardiology-Dr. Bucio planning cardiac catheterization. Patient is being treated with antibiotics for L1 osteomyelitis/ epidural abscess with rifampin and IV vancomycin. 11/17: Underwent cardiac cath by Dr. Bucio last night. 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 Placed on heparin and NTG gtt following cardiac cath and evaluated by CTS dr Conrad. No episodes of Vtach following cardiac cath. Denies any chest pain/ SOB this morning. 11/18: Complaining of low back pain. Denies any chest pain or shortness of breath currently. Objective Vital Signs Date Time Temp Pulse Resp B/P Pulse Ox O2 Delivery O2 Flow Rate FiO2 11/18/16 08:34 98 Nasal Cannula 2.00 11/18/16 07:00 97.8 59 16 91/56 Intake and Output 11/17/16 11/17/16 11/18/16 08:00 16:00 00:00 Intake Total 1346 ml 1444 ml Output Total 0 ml 0 ml Balance 1346 ml 1444 ml Result Diagram: 11/18/16 0450 11/18/16 0450 Other Results Laboratory Tests Test 11/17/16 11/17/16 11/17/16 11/17/16 11:43 12:16 14:10 20:06 Crossmatch Leukocyte-Reduced Red Blood Cells Blood Bank Comment Prothrombin Time 12.7 SEC Prothromb Time International 1.1 RATIO Ratio Activated Partial 42.2 SEC 33.1 SEC Thromboplast Time Hemoglobin 10.0 GM/DL Hematocrit 30.1 % Platelet Function Screen (ADP) 93 SECONDS Platelet Function Scrn 176 SECONDS (Epinephrine Test 11/18/16 04:50 White Blood Count 8.7 TH/MM3 Red Blood Count 2.92 MIL/MM3 Hemoglobin 9.2 GM/DL Hematocrit 27.9 % Mean Corpuscular Volume 95.6 FL Mean Corpuscular Hemoglobin 31.5 PG Mean Corpuscular Hemoglobin 32.9 % Concent Red Cell Distribution Width 17.6 % Platelet Count 216 TH/MM3 Mean Platelet Volume 7.7 FL Activated Partial 40.6 SEC Thromboplast Time Sodium Level 134 MEQ/L Potassium Level 5.1 MEQ/L Chloride Level 98 MEQ/L Carbon Dioxide Level 24.4 MEQ/L Anion Gap 12 MEQ/L Blood Urea Nitrogen 47 MG/DL Creatinine 9.30 MG/DL Estimat Glomerular Filtration 6 ML/MIN Rate Random Glucose 110 MG/DL Calcium Level 9.6 MG/DL C-Reactive Protein 5.76 MG/DL Imaging Last Impressions Chest X-Ray 11/16/16 1240 Signed Impressions: Service Date/Time: Wednesday, November 16, 2016 12:41 - CONCLUSION: Basilar airspace disease suspected, mild. This is a change from the previous study. Steve Yates MD Objective Remarks Physical Exam Narrative GENERAL: 71-year-old male well-nourished well-developed. Resting comfortably in bed, in no acute distress. SKIN: Focused skin assessment warm/dry. HEAD: Atraumatic. Normocephalic. EYES: Pupils equal and round. No scleral icterus. No injection or drainage. ENT: No nasal bleeding or discharge. Mucous membranes pink and moist. NECK: Trachea midline. No JVD. CARDIOVASCULAR: Regular rate and rhythm. No murmur appreciated. RESPIRATORY: No accessory muscle use. Clear to auscultation. Breath sounds equal bilaterally. GASTROINTESTINAL: Abdomen soft, non-tender, nondistended. Hepatic and splenic margins not palpable. MUSCULOSKELETAL: No obvious deformities. No clubbing. No cyanosis. Left arteriovenous fistula. NEUROLOGICAL: Awake and alert. No obvious cranial nerve deficits. Motor grossly within normal limits. Normal speech. PSYCHIATRIC: Appropriate mood and affect; insight and judgment normal. A/P Assessment and Plan 71-year-old male with: Recurrent ventricular tachycardia Elevated troponin End-stage renal disease on hemodialysis thoracic/ lumbar spine osteomyelitis/epidural abscess on IV vancomycin/rifampin Hypertension Prediabetes Anemia Plan: Neuro: Follow neuro status. MRI C-spine/thoracolumbar spine did not reveal any new lesions. Cardiovascular: 3 episodes of V. tach arrest status post CPR/ACLS. Patient has been evaluated by cardiology and has been loaded with amiodarone which was continued as drip. Given magnesium sulfate 2 g IV and calcium chloride 1 g IV following third episode of V. tach. Discussed with Dr. Issac Bucio and Dr. Craig from cardiology. 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 Placed on heparin and NTG gtt following cardiac cath and evaluated by CTS dr Conrad for CABG. Serial cardiac enzymes. Continue ASA, beta lobo Pulmonary: Continue supplemental O2. Adequately protecting airway at this time. GI/liver: Renal diet as tolerated. Renal/: Underwent hemodialysis 11/16. Nephrology consulted to continue hemodialysis while in hospital. Strict intake output, monitor and replete electrolytes, follow BUN/creatinine. ID: IV vancomycin switched to daptomycin on 11/17. Continue rifampin for thoracolumbar osteomyelitis/cervical epidural abscess which is now resolved. ID consulted and following for further evaluation as patient will need CABG. Heme: Transfused 1 unit PRBCs for Hgb 7.5 on 11/17. Endocrine: SSI for glycemic control as needed Prophylaxis: SCDs, subcutaneous heparin/Lovenox when okay with cardiology/ CTS Critical care will sign off at this time, please reconsult if needed. Patient being followed by Dr. [facility]. Jarrett Moreno MD Nov 18, 2016 09:29
[2016-11-18] MEDS ORDERED: PILL SPLITTER OTHER PRN (10:45)
[2016-11-18 11:59] LABS: APTT (PATIENT) 37.4 SEC (24.3-30.1)
--- NOTE | 2016-11-18 12:28 | HHI.PR ---
Subjective Interval History Alert, oriented, feeling fatigued and some back pain but otherwise without pain , no chest pain Review of Systems Constitutional Constitutional Remarks General weakness, back pain, intolerance to minimal activity, 10 systems reviewed otherwise negative Vitals/Results Intake & Output 11/17/16 11/17/16 11/18/16 15:00 23:00 07:00 Intake Total 1444 ml 657 ml Output Total 0 ml 0 ml Balance 1444 ml 657 ml Intake Oral 720 ml 240 ml IV Total 474 ml 417 ml Packed Cells 250 ml Output Urine Total 0 ml 0 ml # Bowel Movements 0 0 Vital Signs Vital Signs Date Time Temp Pulse Resp B/P Pulse Ox O2 Delivery O2 Flow Rate FiO2 11/18/16 11:00 98 Nasal Cannula 2.00 11/18/16 11:00 56 11/18/16 11:00 97.8 59 16 91/56 98 11/18/16 09:08 16 11/18/16 08:34 98 Nasal Cannula 2.00 11/18/16 07:00 97.8 59 16 91/56 98 11/18/16 07:00 98 Nasal Cannula 2.00 11/18/16 07:00 56 11/18/16 04:00 54 11/18/16 04:00 98 Nasal Cannula 4.00 11/18/16 04:00 98.0 54 18 81/51 98 11/18/16 00:00 59 16 98/67 99 11/18/16 00:00 99 Nasal Cannula 4.00 11/18/16 00:00 59 11/17/16 21:04 99 Nasal Cannula 3.50 11/17/16 20:00 68 11/17/16 20:00 98 Nasal Cannula 4.00 11/17/16 20:00 97.7 68 18 116/82 98 11/17/16 15:00 99 Nasal Cannula 4.00 11/17/16 15:00 98.4 64 20 116/69 99 11/17/16 15:00 64 CBC/BMP: 11/18/16 0450 11/18/16 0450 Lab Results Laboratory Tests Test 11/17/16 11/17/16 11/18/16 11/18/16 14:10 20:06 04:50 11:08 Hemoglobin 10.0 GM/DL 9.2 GM/DL Hematocrit 30.1 % 27.9 % Activated Partial 33.1 SEC 40.6 SEC Thromboplast Time Platelet Function Screen (ADP) 93 SECONDS Platelet Function Scrn 176 SECONDS (Epinephrine White Blood Count 8.7 TH/MM3 Red Blood Count 2.92 MIL/MM3 Mean Corpuscular Volume 95.6 FL Mean Corpuscular Hemoglobin 31.5 PG Mean Corpuscular Hemoglobin 32.9 % Concent Red Cell Distribution Width 17.6 % Platelet Count 216 TH/MM3 Mean Platelet Volume 7.7 FL Sodium Level 134 MEQ/L Potassium Level 5.1 MEQ/L Chloride Level 98 MEQ/L Carbon Dioxide Level 24.4 MEQ/L Anion Gap 12 MEQ/L Blood Urea Nitrogen 47 MG/DL Creatinine 9.30 MG/DL Estimat Glomerular Filtration 6 ML/MIN Rate Random Glucose 110 MG/DL Calcium Level 9.6 MG/DL C-Reactive Protein 5.76 MG/DL Phosphorus Level 4.8 MG/DL Test 11/18/16 11:28 Activated Partial 37.4 SEC Thromboplast Time Physical Exam General General Appearance: Well Developed, Comfortable Ears & Nose Ears & Nose Exam: Nasal Mucosa [place] Throat Throat Exam: Oral Mucosa [place] & Moist Neck Neck Exam: Trachea Midline Pulmonary Resp Exam: Breath Sounds Equal, No Distress Cardiology CV Exam: Irregular, Murmur Gastrointestinal/Abdomen GI Exam: Soft, Non-Tender, Bowel Sounds Present Musculoskeletal MS Exam: Normal Tone Integumentary Skin Exam: Warm, Dry Extremeties Extremeties Remarks AV fistula both upper extremities Neurologic Neuro Exam: Alert, Awake, Oriented, Speech Clear, Moving All Extremities, Firearms Inspector Equal, No Focal Deficits Psychiatric Psych Exam: Appropriate Responses Assessment/Plan Assessment/Plan Assessment Syncope Status post cardiac arrest 3 Non-ST elevation myocardial infarction Status post cardiac catheterization 11/17/16 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
[2016-11-18] MEDS: HEPARIN SODIUM - IV 10,000 UNITS/10 ML VIAL IV PRN (12:36)
--- NOTE | 2016-11-18 14:03 | PD.CARD.PN ---
Subjective Subjective Remarks No CV complaints Objective Medications Current Medications Medications (Trade) Dose Ordered Sig/Zenobia Route Start Time Stop Time Status Last Admin Amiodarone HCl 450 mg/Dextrose 250 ml @ 0 mls/hr CONTINUOUS IV 11/16/16 16:15 11/18/16 08:41 (NS 1000 ml Inj) 1,000 ml @ 15 mls/hr Q24H IV 11/16/16 17:00 11/17/16 18:59 (Tylenol) 650 mg Q4H PRN PO 11/16/16 16:15 11/17/16 21:42 (Narcan Inj) 0.4 mg UNSCH PRN IV 11/16/16 16:15 (Indu-Colace) 1 tab BID PO 11/16/16 21:00 11/17/16 21:33 (Milk Of Magnesia Liq) 30 ml Q12H PRN PO 11/16/16 16:15 (Senokot) 17.2 mg Q12H PRN PO 11/16/16 16:15 (Dulcolax Supp) 10 mg DAILY PRN RECTAL 11/16/16 16:15 (Lactulose Liq) 30 ml DAILY PRN PO 11/16/16 16:15 (Aspirin) 325 mg DAILY PO 11/17/16 09:00 11/18/16 08:08 (Rocaltrol) 0.5 mcg DAILY PO 11/17/16 09:00 11/18/16 08:08 (Rifampin) 300 mg Q12HR PO 11/16/16 21:00 11/18/16 08:07 (Restoril) 30 mg HS PRN PO 11/16/16 16:15 (Nephrocaps) 1 cap DAILY PO 11/17/16 09:00 11/18/16 08:07 (Sensipar) 60 mg DAILY@16 PO 11/17/16 16:00 11/17/16 16:25 Patient Own Medication PT OWN MED:VELPHORO(SUCROFERRIC OXYHYDROXIDE)500... TIDAC OTHER 11/17/16 08:00 Hold (D50w (Vial) Inj) 50 ml UNSCH PRN IV 11/16/16 17:30 (Glucagon Inj) 1 mg UNSCH PRN OTHER 11/16/16 17:30 (Heparin Inj) 5,000 units UNSCH PRN IV 11/17/16 02:30 Heparin Sodium (Porcine) 2500 units 2,500 units UNSCH PRN IV 11/17/16 02:30 11/18/16 12:36 Heparin Sodium/ Dextrose 250 ml @ 0 mls/hr TITRATE IV 11/16/16 20:30 11/17/16 19:07 (Nitroglycerin-Dextrose Inj) 250 ml @ 0 mls/hr TITRATE IV 11/16/16 20:30 (Zofran Inj) 4 mg Q4H PRN IV 11/16/16 20:30 11/17/16 19:02 (NS Flush) 2 ml BID IV FLUSH 11/17/16 21:00 11/17/16 21:33 (NS Flush) 2 ml UNSCH PRN IV FLUSH 11/17/16 11:45 Mupirocin 1 applic 1 applic BID EACH NARE 11/17/16 11:45 11/22/16 11:44 11/18/16 08:07 (NS 1000 ml Inj) 1,000 ml @ 0 mls/hr Q0M PRN IV 11/17/16 14:23 Heparin Sodium (Porcine) 8000 units 8,000 units UNSCH PRN IVF 11/17/16 14:30 Sodium Chloride 1,000 ml @ 200 mls/hr Q5H PRN IV 11/17/16 14:23 (NS 1000 ml Inj) 1,000 ml @ 0 mls/hr Q0M PRN IV 11/17/16 14:23 (Mannitol Inj) 12.5 gm UNSCH PRN IV 11/17/16 14:30 (Albumin 25% Inj) 25 gm UNSCH PRN IV 11/17/16 14:30 (NS Flush) 5 ml UNSCH PRN IV FLUSH 11/17/16 14:30 (Heparin Inj) UNSCH PRN .XX 11/17/16 14:30 (Gentamicin (Dialysis) Inj) 20 mg UNSCH PRN IV 11/17/16 14:30 (Zofran Inj) 4 mg UNSCH PRN IV 11/17/16 14:30 (Tylenol) 650 mg UNSCH PRN PO 11/17/16 14:30 (Benadryl) 25 mg UNSCH PRN PO 11/17/16 14:30 (Nitrostat Sl) 0.4 mg UNSCH PRN SL 11/17/16 14:30 (Catapres) 0.1 mg UNSCH PRN PO 11/17/16 14:30 (Gelfoam 12 Mm/7 Mm Top) 1 foam UNSCH PRN TOP 11/17/16 14:30 (Percocet 5-325 Mg) 1 tab Q4H PRN PO 11/18/16 06:15 (Percocet 10-325 Mg) 1 tab Q4H PRN PO 11/18/16 03:00 11/18/16 08:08 Morphine Sulfate 4 mg 4 mg Q3H PRN IV PUSH 11/18/16 03:00 (Cubicin Inj/NS Inj) 100 ml @ 200 mls/hr Q48H IV 11/18/16 15:00 (Lopressor) 12.5 mg BID PO 11/18/16 21:00 (Pill Splitter) 1 ea UNSCH PRN OTHER 11/18/16 10:45 Vital Signs / I&O Vital Signs Date Time Temp Pulse Resp B/P Pulse Ox O2 Delivery O2 Flow Rate FiO2 11/18/16 11:00 98 Nasal Cannula 2.00 11/18/16 11:00 56 11/18/16 11:00 97.8 59 16 91/56 98 11/18/16 09:08 16 11/18/16 08:34 98 Nasal Cannula 2.00 11/18/16 07:00 97.8 59 16 91/56 98 11/18/16 07:00 98 Nasal Cannula 2.00 11/18/16 07:00 56 11/18/16 04:00 54 11/18/16 04:00 98 Nasal Cannula 4.00 11/18/16 04:00 98.0 54 18 81/51 98 11/18/16 00:00 59 16 98/67 99 11/18/16 00:00 99 Nasal Cannula 4.00 11/18/16 00:00 59 11/17/16 21:04 99 Nasal Cannula 3.50 11/17/16 20:00 68 11/17/16 20:00 98 Nasal Cannula 4.00 11/17/16 20:00 97.7 68 18 116/82 98 11/17/16 15:00 99 Nasal Cannula 4.00 11/17/16 15:00 98.4 64 20 116/69 99 11/17/16 15:00 64 I/O 11/17/16 11/17/16 11/17/16 11/18/16 11/18/16 11/18/16 06:59 14:59 22:59 06:59 14:59 22:59 Intake Total 1346 ml 1444 ml 657 ml Output Total 0 ml 0 ml 0 ml Balance 1346 ml 1444 ml 657 ml Intake Oral 240 ml 720 ml 240 ml IV Total 1106 ml 474 ml 417 ml Packed Cells 250 ml Output Urine Total 0 ml 0 ml 0 ml # Bowel Movements 0 0 0 Physical Exam Alert Chest: clear CV S1S2 RRR. 2/6 mild-mod murmur. Abd: soft Ext: Right groin without hematoma. pedal pulse weak but present and foot is warm Tele: sinus julio c with 1sr degree AV block Laboratory Laboratory Tests Test 11/17/16 11/17/16 11/18/16 11/18/16 14:10 20:06 04:50 11:08 Hemoglobin 10.0 GM/DL 9.2 GM/DL Hematocrit 30.1 % 27.9 % Activated Partial 33.1 SEC 40.6 SEC Thromboplast Time Platelet Function Screen (ADP) 93 SECONDS Platelet Function Scrn 176 SECONDS (Epinephrine White Blood Count 8.7 TH/MM3 Red Blood Count 2.92 MIL/MM3 Mean Corpuscular Volume 95.6 FL Mean Corpuscular Hemoglobin 31.5 PG Mean Corpuscular Hemoglobin 32.9 % Concent Red Cell Distribution Width 17.6 % Platelet Count 216 TH/MM3 Mean Platelet Volume 7.7 FL Sodium Level 134 MEQ/L Potassium Level 5.1 MEQ/L Chloride Level 98 MEQ/L Carbon Dioxide Level 24.4 MEQ/L Anion Gap 12 MEQ/L Blood Urea Nitrogen 47 MG/DL Creatinine 9.30 MG/DL Estimat Glomerular Filtration 6 ML/MIN Rate Random Glucose 110 MG/DL Calcium Level 9.6 MG/DL C-Reactive Protein 5.76 MG/DL Phosphorus Level 4.8 MG/DL Test 11/18/16 11:28 Activated Partial 37.4 SEC Thromboplast Time Imaging Last 48 hours Impressions Thoracic Spine MRI 11/17/16 0000 Signed Impressions: Service Date/Time: Thursday, November 17, 2016 17:29 - CONCLUSION: 1. Resolution of previous epidural abscess. 2. Residual probable disc protrusion at T3-4 and T6- 7 is stable. 3. Discitis and osteomyelitis at T3-4 with a relatively stable signal changes in the structures since October 31. Kei Gu MD Lumbar Spine MRI 11/17/16 Signed Impressions: Service Date/Time: Thursday, November 17, 2016 17:29 - CONCLUSION: 1. Chronic disc degeneration at L1-2 with mild to moderate stenosis. No other significant canal stenosis. No evidence for acute discitis or osteomyelitis. Kei Gu MD Lower Extremity Ultrasound 11/17/16 Signed Impressions: Service Date/Time: Thursday, November 17, 2016 15:27 - CONCLUSION: Venous mapping as delineated above. Geovanni Flanagan MD Lower Extremity Ultrasound 11/17/16 Signed Impressions: Service Date/Time: Thursday, November 17, 2016 15:18 - CONCLUSION: No DVT. Geovanni Flanagan MD Chest CT 11/17/16 Signed Impressions: Service Date/Time: Thursday, November 17, 2016 18:23 - CONCLUSION: 1. Small right-sided effusion and small to moderate left effusion. Right effusion is at least partially loculated. There is dependent consolidation and atelectasis in both lungs. No adenopathy or pneumothorax. Kei Gu MD Cervical Spine MRI 11/17/16 Signed Impressions: Service Date/Time: Thursday, November 17, 2016 17:29 - CONCLUSION: 1. Stable moderate degenerative disc disease since October 31. Mild canal stenosis at C5-6. No cord signal abnormality. No evidence for discitis or osteomyelitis of the cervical spine. Kei Gu MD Carotid Artery Ultrasound 11/17/16 Signed Impressions: Service Date/Time: Thursday, November 17, 2016 15:05 - CONCLUSION: 1. Calcified plaque seen in the carotid arteries bilaterally, especially around the bifurcations. However, no hemodynamically significant stenosis is identified. Vertebral artery flow antegrade bilaterally. 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 Problem Qualifiers (1) Aortic stenosis: Qualified Code: I35.0 - Aortic valve stenosis, unspecified etiology Issac Bucio MD Nov 18, 2016 14:03
--- NOTE | 2016-11-18 14:53 | PD.CAR.PN ---
CVT Progress Note Subjective/Hospital Course: 11/16: 71 years old male with ESRD on HD who was brought to ER from dialysis where he suddenly became unresponsive. On scene providers performed CPR for approximately 5 minutes. He underwent defibrillation twice and had a return of spontaneous circulation per ER documentation. The patient states he felt sleepy this morning and believes he may have actually fell asleep during dialysis. He does not recall the actual loss of consciousness. EMS reports that on scene he had a blood pressure 127/80 and a heart rate of 110 sinus tach. Occasional PVCs were observed. FS Glucose was 168. The dialysis session was about 50% complete when he became unresponsive and then was sent to the ER. On evaluation in the ER patient was completely asymptomatic without any chest pain. He was admitted by [facility] and was evaluated by Dr. Craig from cardiology. Patient was initiated on amiodarone drip and subsequently proceeded for VQ scan where he had another episode of V. tach arrest, CODE BLUE cardiac arrest code was activated. Patient was shocked out of the V. tach had about 2.5 minutes of CPR at that time. Subsequently he was transported to [facility] where I evaluated him immediately following his arrival. At that time patient was awake and alert and denied any chest pain or shortness of breath. He says that he passed out and does not recollect any other events. Shortly following patient's arrival to ICU he had a third episode where he became unresponsive and went into V. tach arrest. CPR/ACLS protocol initiated, patient converted spontaneously to sinus rhythm prior to defibrillation and became responsive. He denied any chest pain or shortness of breath following regaining of consciousness. Patient was given amiodarone 300 mg IV bolus following third episode of V. tach along with 2 g of magnesium sulfate IV push as well as 1 g of calcium chloride.. Patient is being treated with antibiotics for L1 osteomyelitis/ epidural abscess with rifampin and IV vancomycin. 11/17:cardiac cath by Dr. Bucio last night. 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 on heparin and NTG gtt following cardiac cath 11/18 Dr Pretty spoke with Dr Novak ID , agree pt is high risk, however with 2 episodes of Vtach arrest / requiring resuscitation / pt is even higher risk without revascularization. Dr Pretty spoke in depth with pt today , he will receive dialysis on and is now scheduled for CABG on 11/20 will dc IV amiodarone and change to po amiodarone Objective: GENERAL: SKIN: Warm and dry. skin color fair HEAD: Normocephalic. EYES: No scleral icterus. No injection or drainage. NECK: Supple, trachea midline. No JVD or lymphadenopathy. CARDIOVASCULAR: Regular rate and rhythm without murmurs, gallops, or rubs. sinus julio c + AV bruit left forearm RESPIRATORY: few basilar crackles Breath sounds equal bilaterally. No accessory muscle use. GASTROINTESTINAL: Abdomen soft, non-tender, nondistended. MUSCULOSKELETAL: No cyanosis, or edema. BACK: Nontender without obvious deformity. No CVA tenderness. Vital Signs Date Time Temp Pulse Resp B/P Pulse Ox O2 Delivery O2 Flow Rate FiO2 11/18/16 11:00 98 Nasal Cannula 2.00 11/18/16 11:00 56 11/18/16 11:00 97.8 59 16 91/56 98 11/18/16 09:08 16 11/18/16 08:34 98 Nasal Cannula 2.00 11/18/16 07:00 97.8 59 16 91/56 98 11/18/16 07:00 98 Nasal Cannula 2.00 11/18/16 07:00 56 11/18/16 04:00 54 11/18/16 04:00 98 Nasal Cannula 4.00 11/18/16 04:00 98.0 54 18 81/51 98 11/18/16 00:00 59 16 98/67 99 11/18/16 00:00 99 Nasal Cannula 4.00 11/18/16 00:00 59 11/17/16 21:04 99 Nasal Cannula 3.50 11/17/16 20:00 68 11/17/16 20:00 98 Nasal Cannula 4.00 11/17/16 20:00 97.7 68 18 116/82 98 11/17/16 15:00 99 Nasal Cannula 4.00 11/17/16 15:00 98.4 64 20 116/69 99 11/17/16 15:00 64 Labs: Laboratory Tests Test 11/18/16 11/18/16 11/18/16 04:50 11:08 11:28 White Blood Count 8.7 TH/MM3 (4.0-11.0) Red Blood Count 2.92 MIL/MM3 (4.50-5.90) Hemoglobin 9.2 GM/DL (13.0-17.0) Hematocrit 27.9 % (39.0-51.0) Mean Corpuscular Volume 95.6 FL (80.0-100.0) Mean Corpuscular Hemoglobin 31.5 PG (27.0-34.0) Mean Corpuscular Hemoglobin 32.9 % Concent (32.0-36.0) Red Cell Distribution Width 17.6 % (11.6-17.2) Platelet Count 216 TH/MM3 (150-450) Mean Platelet Volume 7.7 FL (7.0-11.0) Activated Partial 40.6 SEC 37.4 SEC Thromboplast Time (24.3-30.1) (24.3-30.1) Sodium Level 134 MEQ/L (136-145) Potassium Level 5.1 MEQ/L (3.5-5.1) Chloride Level 98 MEQ/L (98-107) Carbon Dioxide Level 24.4 MEQ/L (21.0-32.0) Anion Gap 12 MEQ/L (5-15) Blood Urea Nitrogen 47 MG/DL (7-18) Creatinine 9.30 MG/DL (0.60-1.30) Estimat Glomerular Filtration 6 ML/MIN (>89) Rate Random Glucose 110 MG/DL (74-106) Calcium Level 9.6 MG/DL (8.5-10.1) C-Reactive Protein 5.76 MG/DL (0.00-0.30) Phosphorus Level 4.8 MG/DL (2.5-4.9) Result Diagram: 11/18/1644911/18/16449 Telemetry: sinus julio c (1) Aortic stenosis Plan: Mild (2) Ventricular fibrillation Plan: no recurrence (3) 3-vessel coronary artery disease Plan: needs CABG scheduled for 11/20 (4) Coronary aneurysm Plan: possibly mycotic (5) Cardiopulmonary arrest with successful resuscitation (6) Elevated troponin I level (7) Non-STEMI (non-ST elevated myocardial infarction) (8) First degree AV block Problem Qualifiers (1) Aortic stenosis: Qualified Code: I35.0 - Aortic valve stenosis, unspecified etiology Katie Riojas Nov 18, 2016 14:53
[2016-11-18] MEDS ORDERED: SODIUM CHLORIDE 0.9% IV SCH (15:00)
[2016-11-18] MEDS ORDERED: DAPTOMYCIN IV SCH (15:00)
[2016-11-18] MEDS: AMIODARONE 200 MG TAB PO SCH ×2 (15:15→20:46)
[2016-11-18] MEDS: SODIUM CHLORIDE 0.9% IV SCH (15:17)
[2016-11-18] MEDS: DAPTOMYCIN IV SCH (15:17)
[2016-11-18] MEDS ORDERED: IOHEXOL 350 MG/ML 100 ML BTL (for Cath Lab) OTHER ONE (16:00)
[2016-11-18] MEDS: CINACALCET HYDROCHLORIDE 30 MG TAB PO SCH (16:43)
[2016-11-18] MEDS: SODIUM CHLOR 0.9% 1000 ML INJ 1,000 ML IV SCH (17:00)
[2016-11-18 17:14] LABS: HEMOGLOBIN A1a 1.4 %; HEMOGLOBIN A1b 0.9 %; HEMOGLOBIN Ao 83.6 %; HEMOGLOBIN F 1.5 %; HEMOGLOBIN LA1C 2.3 %; HEMOGLOBIN P3 5.8 %
[2016-11-18] MEDS: HEPARIN-D5W INJ 250 ML IV SCH (17:44)
--- NOTE | 2016-11-18 18:35 | HHI.IDPN ---
Subjective Subjective Remarks History of Present Illness Mr. Conrad is a 71-year-old occasional male with past medical history significant for end-stage renal disease on hemodialysis using an AV fistula. His past medical history is also significant for multiple infections likely related to Hemodialysis access site. Upon review of medical records it appears that in March 2015 patient had group B strep bacteremia. In February 2016 patient had MSSA bacteremia. 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 Upon review of the medical records it appears that patient was being seen by Dr. Farmer of infectious disease and the plan was to treat him for 12 weeks with IV vancomycin as well as rifampin. 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 Overnight events reviewed. Remains in the ICU. Not on pressors. No fevers No rash No Diarrhea Antibiotics Daptomycin IV Rifampin oral Lines Line sites with no evidence of infection. Past Medical History Reviewed. Allergies: Coded Allergies: *MDRO Multi-Drug Resistant Organism (Verified Adverse Reaction, Unknown, ) MRSA PCR screen POSITIVE - 03/13/16 MRSA (blood)-10/29/16 Objective . Vital Signs Date Time Temp Pulse Resp B/P Pulse Ox O2 Delivery O2 Flow Rate FiO2 11/18/16 15:00 97.8 55 16 91/56 98 11/18/16 15:00 55 11/18/16 15:00 99 Nasal Cannula 2.00 11/18/16 11:00 98 Nasal Cannula 2.00 11/18/16 11:00 56 11/18/16 11:00 97.8 59 16 91/56 98 11/18/16 09:08 16 11/18/16 08:34 98 Nasal Cannula 2.00 11/18/16 07:00 97.8 59 16 91/56 98 11/18/16 07:00 98 Nasal Cannula 2.00 11/18/16 07:00 56 11/18/16 04:00 54 11/18/16 04:00 98 Nasal Cannula 4.00 11/18/16 04:00 98.0 54 18 81/51 98 11/18/16 00:00 59 16 98/67 99 11/18/16 00:00 99 Nasal Cannula 4.00 11/18/16 00:00 59 11/17/16 21:04 99 Nasal Cannula 3.50 7/2/17 20:00 68 11/17/16 20:00 98 Nasal Cannula 4.00 11/17/16 20:00 97.7 68 18 116/82 98 11/17/16 11/17/16 11/18/16 15:00 23:00 07:00 Intake Total 1444 ml 657 ml Output Total 0 ml 0 ml Balance 1444 ml 657 ml Intake Oral 720 ml 240 ml IV Total 474 ml 417 ml Packed Cells 250 ml Output Urine Total 0 ml 0 ml # Bowel Movements 0 0 . Laboratory Tests Test 11/16/16 11/17/16 11/17/16 11/18/16 18:58 03:37 14:10 04:50 White Blood Count 11.1 TH/MM3 6.7 TH/MM3 8.7 TH/MM3 Red Blood Count 2.59 MIL/MM3 2.38 MIL/MM3 2.92 MIL/MM3 Hemoglobin 8.2 GM/DL 7.5 GM/DL 10.0 GM/DL 9.2 GM/DL Bedside Hemoglobin 8.8 G/DL Hematocrit 25.0 % 23.2 % 30.1 % 27.9 % Bedside Hematocrit 26.0 % Mean Corpuscular Volume 96.7 FL 97.1 FL 95.6 FL Mean Corpuscular Hemoglobin 31.8 PG 31.5 PG 31.5 PG Mean Corpuscular Hemoglobin 32.9 % 32.4 % 32.9 % Concent Red Cell Distribution Width 15.6 % 15.8 % 17.6 % Platelet Count 300 TH/MM3 213 TH/MM3 216 TH/MM3 Mean Platelet Volume 7.6 FL 7.4 FL 7.7 FL Neutrophils (%) (Auto) 88.4 % 80.8 % Lymphocytes (%) (Auto) 4.4 % 8.8 % Monocytes (%) (Auto) 6.4 % 9.1 % Eosinophils (%) (Auto) 0.4 % 0.4 % Basophils (%) (Auto) 0.4 % 0.9 % Neutrophils # (Auto) 9.8 TH/MM3 5.4 TH/MM3 Lymphocytes # (Auto) 0.5 TH/MM3 0.6 TH/MM3 Monocytes # (Auto) 0.7 TH/MM3 0.6 TH/MM3 Eosinophils # (Auto) 0.0 TH/MM3 0.0 TH/MM3 Basophils # (Auto) 0.0 TH/MM3 0.1 TH/MM3 CBC Comment DIFF FINAL DIFF FINAL Differential Comment Laboratory Tests Test 11/16/16 11/17/16 11/18/16 11/18/16 18:58 03:37 04:50 11:08 Bedside Sodium 138 MMOL/L Bedside Potassium 3.4 MMOL/L Bedside Chloride 100 MMOL/L Bedside Blood Urea Nitrogen 27 MG/DL Bedside Creatinine 7.3 MG/DL Bedside Glucose 178 MG/DL Calcium Level 10.4 MG/DL 9.7 MG/DL 9.6 MG/DL Magnesium Level 2.8 MG/DL 2.7 MG/DL Total Creatine Kinase 56 U/L 64 U/L Troponin I 1.24 NG/ML 1.45 NG/ML B-Type Natriuretic Peptide 1688 PG/ML Sodium Level 136 MEQ/L 134 MEQ/L Potassium Level 4.5 MEQ/L 5.1 MEQ/L Chloride Level 100 MEQ/L 98 MEQ/L Carbon Dioxide Level 26.4 MEQ/L 24.4 MEQ/L Anion Gap 10 MEQ/L 12 MEQ/L Blood Urea Nitrogen 33 MG/DL 47 MG/DL Creatinine 7.99 MG/DL 9.30 MG/DL Estimat Glomerular Filtration 7 ML/MIN 6 ML/MIN Rate Random Glucose 121 MG/DL 110 MG/DL Total Bilirubin 0.5 MG/DL Aspartate Amino Transf 39 U/L (AST/SGOT) Alanine Aminotransferase 23 U/L (ALT/SGPT) Alkaline Phosphatase 75 U/L Total Protein 6.0 GM/DL Albumin 2.6 GM/DL C-Reactive Protein 5.76 MG/DL Phosphorus Level 4.8 MG/DL Microbiology Date/Time Procedure Status Source Growth 11/16/16 15:50 Aerobic Blood Culture - Preliminary Resulted Blood Peripheral NO GROWTH IN 2 DAYS 11/16/16 15:50 Anaerobic Blood Culture - Preliminary Resulted Blood Peripheral NO GROWTH IN 2 DAYS 11/16/16 16:05 Aerobic Blood Culture - Preliminary Resulted Blood Peripheral NO GROWTH IN 2 DAYS 11/16/16 16:05 Anaerobic Blood Culture - Preliminary Resulted Blood Peripheral NO GROWTH IN 2 DAYS Imaging Last Impressions Thoracic Spine MRI 11/17/16 0000 Signed Impressions: Service Date/Time: Thursday, November 17, 2016 17:29 - CONCLUSION: 1. Resolution of previous epidural abscess. 2. Residual probable disc protrusion at T3-4 and T6- 7 is stable. 3. Discitis and osteomyelitis at T3-4 with a relatively stable signal changes in the structures since October 31. Kei Gu MD Lumbar Spine MRI 11/17/16 0000 Signed Impressions: Service Date/Time: Thursday, November 17, 2016 17:29 - CONCLUSION: 1. Chronic disc degeneration at L1-2 with mild to moderate stenosis. No other significant canal stenosis. No evidence for acute discitis or osteomyelitis. Kei Gu MD Lower Extremity Ultrasound 11/17/16 Signed Impressions: Service Date/Time: Thursday, November 17, 2016 15:27 - CONCLUSION: Venous mapping as delineated above. Geovanni Flanagan MD Chest CT 11/17/16 Signed Impressions: Service Date/Time: Thursday, November 17, 2016 18:23 - CONCLUSION: 1. Small right-sided effusion and small to moderate left effusion. Right effusion is at least partially loculated. There is dependent consolidation and atelectasis in both lungs. No adenopathy or pneumothorax. Kei Gu MD Cervical Spine MRI 11/17/16 Signed Impressions: Service Date/Time: Thursday, November 17, 2016 17:29 - CONCLUSION: 1. Stable moderate degenerative disc disease since October 31. Mild canal stenosis at C5-6. No cord signal abnormality. No evidence for discitis or osteomyelitis of the cervical spine. Kei Gu MD Carotid Artery Ultrasound 11/17/16 0000 Signed Impressions: Service Date/Time: Thursday, November 17, 2016 15:05 - CONCLUSION: 1. Calcified plaque seen in the carotid arteries bilaterally, especially around the bifurcations. However, no hemodynamically significant stenosis is identified. Vertebral artery flow antegrade bilaterally. Kei Gu MD Chest X-Ray 11/16/16 1240 Signed Impressions: Service Date/Time: Wednesday, November 16, 2016 12:41 - CONCLUSION: Basilar airspace disease suspected, mild. This is a change from the previous study. Steve Yates MD Lung Scan Nuclear Medicine 11/16/16 0000 Signed Impressions: Service Date/Time: Wednesday, November 16, 2016 16:52 - CONCLUSION: Negative for pulmonary embolism. Kei Gu MD Physical Exam GENERAL: This is a well-nourished, well-developed patient, in no apparent distress. SKIN: No rashes, ecchymoses or lesions. Cool and dry. HEAD: Atraumatic. Normocephalic. No temporal or scalp tenderness. EYES: Pupils equal round and reactive. Extraocular motions intact. No scleral icterus. No injection or drainage. ENT: Nose without bleeding, purulent drainage or septal hematoma. Throat without erythema, tonsillar hypertrophy or exudate. Uvula midline. Airway patent. NECK: Trachea midline. Supple, nontender, no meningeal signs. CARDIOVASCULAR: HS audible. RESPIRATORY: Clear to auscultation. Breath sounds equal bilaterally. No wheezes , rales, or rhonchi. GASTROINTESTINAL: Abdomen soft, non-tender, nondistended. MUSCULOSKELETAL: Extremities without clubbing, cyanosis, or edema. No joint tenderness, effusion, or edema noted. No calf tenderness. Negative Homans sign bilaterally. NEUROLOGICAL: Awake and alert. Grossly non focal Psych: cooperative IV line sites with no e.o infection. 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 CAD h/o code blue this admission. Recs: Daptomycin 10 mg/kg IV q 48 hours, 1st dose now. (ASP: Clinical Suspected Vanco failure, Vanco ANGELO 2 on last blood culture) Continue Rifampin. CRP elevated. MRI L-,C-,T-Spine no drainable foci of infection. Discitis as noted in prior sites. No new foci of infection. d.w RN D/w CTS CABG ok to perform if medically necessary. Patient appears to have stable but ongoing infection at this time. Still concerned about mycotic aneurysm and seeding of blood vessel due to suboptimal vanco in HD. D/w him about sending a coronary segment intraop (if possible) to pathology and microbiology to confirm the diagnosis of coronary mycotic aneurysm. Follow cultures Follow clinically. Will follow after CABG. If any change in clinical condition or questions please call sooner. Jemma Moreno MD Nov 18, 2016 18:35
[2016-11-19] VITALS (9 sets, daily range): BP systolic 94–108; BP diastolic 55–67; PULSE 57–80; RESP 14–18; TEMP 97.4–98.4; O2SAT 95–100
[2016-11-19 01:09] LABS: APTT (PATIENT) 42.2 SEC (24.3-30.1)
--- NOTE | 2016-11-19 05:55 | PD.CARD.PN ---
Subjective Subjective Remarks Notes a little back pain he thinks from the bed. No angina Objective Medications Current Medications Medications (Trade) Dose Ordered Sig/Zenobia Route Start Time Stop Time Status Last Admin (NS 1000 ml Inj) 1,000 ml @ 15 mls/hr Q24H IV 11/16/16 17:00 11/17/16 18:59 (Tylenol) 650 mg Q4H PRN PO 11/16/16 16:15 11/17/16 21:42 (Narcan Inj) 0.4 mg UNSCH PRN IV 11/16/16 16:15 (Indu-Colace) 1 tab BID PO 11/16/16 21:00 11/18/16 20:47 (Milk Of Magnesia Liq) 30 ml Q12H PRN PO 11/16/16 16:15 (Senokot) 17.2 mg Q12H PRN PO 11/16/16 16:15 (Dulcolax Supp) 10 mg DAILY PRN RECTAL 11/16/16 16:15 (Lactulose Liq) 30 ml DAILY PRN PO 11/16/16 16:15 (Aspirin) 325 mg DAILY PO 11/17/16 09:00 11/18/16 08:08 (Rocaltrol) 0.5 mcg DAILY PO 11/17/16 09:00 11/18/16 08:08 (Rifampin) 300 mg Q12HR PO 11/16/16 21:00 11/18/16 20:47 (Restoril) 30 mg HS PRN PO 11/16/16 16:15 11/18/16 21:33 (Nephrocaps) 1 cap DAILY PO 11/17/16 09:00 11/18/16 08:07 (Sensipar) 60 mg DAILY@16 PO 11/17/16 16:00 11/18/16 16:43 Patient Own Medication PT OWN MED:VELPHORO(SUCROFERRIC OXYHYDROXIDE)500... TIDAC OTHER 11/17/16 08:00 Hold (D50w (Vial) Inj) 50 ml UNSCH PRN IV 11/16/16 17:30 (Glucagon Inj) 1 mg UNSCH PRN OTHER 11/16/16 17:30 (Heparin Inj) 5,000 units UNSCH PRN IV 11/17/16 02:30 Heparin Sodium (Porcine) 2500 units 2,500 units UNSCH PRN IV 11/17/16 02:30 11/18/16 12:36 Heparin Sodium/ Dextrose 250 ml @ 0 mls/hr TITRATE IV 11/16/16 20:30 11/18/16 17:44 (Nitroglycerin-Dextrose Inj) 250 ml @ 0 mls/hr TITRATE IV 11/16/16 20:30 (Zofran Inj) 4 mg Q4H PRN IV 11/16/16 20:30 11/17/16 19:02 (NS Flush) 2 ml BID IV FLUSH 11/17/16 21:00 11/18/16 20:51 (NS Flush) 2 ml UNSCH PRN IV FLUSH 11/17/16 11:45 Mupirocin 1 applic 1 applic BID EACH NARE 11/17/16 11:45 11/22/16 11:44 11/18/16 20:51 (NS 1000 ml Inj) 1,000 ml @ 0 mls/hr Q0M PRN IV 11/17/16 14:23 Heparin Sodium (Porcine) 8000 units 8,000 units UNSCH PRN IVF 11/17/16 14:30 Sodium Chloride 1,000 ml @ 200 mls/hr Q5H PRN IV 11/17/16 14:23 (NS 1000 ml Inj) 1,000 ml @ 0 mls/hr Q0M PRN IV 11/17/16 14:23 (Mannitol Inj) 12.5 gm UNSCH PRN IV 11/17/16 14:30 (Albumin 25% Inj) 25 gm UNSCH PRN IV 11/17/16 14:30 (NS Flush) 5 ml UNSCH PRN IV FLUSH 11/17/16 14:30 (Heparin Inj) UNSCH PRN .XX 11/17/16 14:30 (Gentamicin (Dialysis) Inj) 20 mg UNSCH PRN IV 11/17/16 14:30 (Zofran Inj) 4 mg UNSCH PRN IV 11/17/16 14:30 (Tylenol) 650 mg UNSCH PRN PO 11/17/16 14:30 (Benadryl) 25 mg UNSCH PRN PO 11/17/16 14:30 (Nitrostat Sl) 0.4 mg UNSCH PRN SL 11/17/16 14:30 (Catapres) 0.1 mg UNSCH PRN PO 11/17/16 14:30 (Gelfoam 12 Mm/7 Mm Top) 1 foam UNSCH PRN TOP 11/17/16 14:30 (Percocet 5-325 Mg) 1 tab Q4H PRN PO 11/18/16 06:15 (Percocet 10-325 Mg) 1 tab Q4H PRN PO 11/18/16 03:00 11/18/16 21:32 Morphine Sulfate 4 mg 4 mg Q3H PRN IV PUSH 11/18/16 03:00 (Cubicin Inj/NS Inj) 100 ml @ 200 mls/hr Q48H IV 11/18/16 15:00 11/18/16 15:17 (Lopressor) 12.5 mg BID PO 11/18/16 21:00 11/18/16 20:47 (Pill Splitter) 1 ea UNSCH PRN OTHER 11/18/16 10:45 (Cordarone) 400 mg Q12HR PO 11/18/16 15:00 11/18/16 20:46 Vital Signs / I&O Vital Signs Date Time Temp Pulse Resp B/P Pulse Ox O2 Delivery O2 Flow Rate FiO2 11/19/16 03:00 58 11/19/16 03:00 97.8 58 18 100/63 95 11/19/16 03:00 95 Nasal Cannula 2.00 11/18/16 23:00 98.2 62 18 107/70 97 11/18/16 23:00 62 11/18/16 23:00 97 Nasal Cannula 2.00 11/18/16 22:35 18 11/18/16 21:25 98 Nasal Cannula 2.00 11/18/16 19:00 61 11/18/16 19:00 98 Nasal Cannula 2.00 11/18/16 19:00 97.5 61 18 123/73 98 11/18/16 15:00 97.8 55 16 91/56 98 11/18/16 15:00 55 11/18/16 15:00 99 Nasal Cannula 2.00 11/18/16 11:00 98 Nasal Cannula 2.00 11/18/16 11:00 56 11/18/16 11:00 97.8 59 16 91/56 98 11/18/16 08:34 98 Nasal Cannula 2.00 11/18/16 07:00 97.8 59 16 91/56 98 11/18/16 07:00 98 Nasal Cannula 2.00 11/18/16 07:00 56 I/O 11/18/16 11/18/16 11/18/16 11/19/16 11/19/16 11/19/16 07:00 15:00 23:00 07:00 15:00 23:00 Intake Total 657 ml 1660 ml Output Total 0 ml 0 ml Balance 657 ml 1660 ml Intake Oral 240 ml 960 ml IV Total 417 ml 700 ml Output Urine Total 0 ml 0 ml # Bowel Movements 0 0 Physical Exam Alert Chest: clear CV S1S2 RRR. 2/6 mild-mod murmur. Abd: soft Ext: Right groin stable. No C/C/E Tele: sinus julio c/ sinus rhythm with 1sr degree AV block Laboratory Laboratory Tests Test 11/18/16 11/18/16 11/18/16 11/19/16 11:08 11:28 18:30 00:49 Phosphorus Level 4.8 MG/DL Activated Partial 37.4 SEC 48.0 SEC 42.2 SEC Thromboplast Time Assessment and Plan Problem List: (1) Aortic stenosis Assessment and Plan: [id number]. (2) Ventricular fibrillation Assessment and Plan: has stabilized very well with BB/ Amio. Hardly any ectopy. 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 Conrad. He is stable on IV heparin/ current meds. I' m out until next week. My group available prn for follow-up. Problem Qualifiers (1) Aortic stenosis: Qualified Code: I35.0 - Aortic valve stenosis, unspecified etiology Issac Bucio MD Nov 19, 2016 05:55
[2016-11-19] MEDS: oxyCODONE/ACETAMINOPHEN 10 MG/325 MG TAB PO PRN ×3 (06:39→20:40)
[2016-11-19] MEDS: INSULIN NovoLIN REGULAR SUPPLEMENTAL SCALE SQ SCH ×4 (06:45→20:41)
[2016-11-19 07:56] LABS: HEMATOCRIT 26.3 % (39.0-51.0); MEAN CELL VOLUME 95.6 FL (80.0-100.0); MEAN CORPUSCULAR HEMOGLOBIN 31.7 PG (27.0-34.0); MEAN CORPUSCULAR HGB CONC 33.2 % (32.0-36.0); PLATELET COUNT 199 TH/MM3 (150-450); RED BLOOD COUNT 2.76 MIL/MM3 (4.50-5.90); RED CELL DISTRIBUTION WIDTH 17.2 % (11.6-17.2); REVIEW FLAG FINAL
[2016-11-19 08:10] LABS: APTT (PATIENT) 39.2 SEC (24.3-30.1)
[2016-11-19] MEDS: SODIUM CHLORIDE 0.9% FLUSH 10 ML FLUSH IV FLUSH SCH ×2 (09:00→20:41)
[2016-11-19] MEDS: METOPROLOL TARTRATE 25 MG TAB PO SCH ×2 (09:00→20:41)
[2016-11-19] MEDS: DOCUSATE SODIUM 50 MG/SENNA 8.6 MG TAB PO SCH ×2 (09:00→20:40)
[2016-11-19] MEDS: MUPIROCIN 2% OINT 1 APPLIC/GM SYR EACH NARE SCH ×2 (09:00→20:40)
--- NOTE | 2016-11-19 09:27 | PD.CAR.PN ---
CVT Progress Note Subjective/Hospital Course: 11/16: 71 years old male with ESRD on HD who was brought to ER from dialysis where he suddenly became unresponsive. On scene providers performed CPR for approximately 5 minutes. He underwent defibrillation twice and had a return of spontaneous circulation per ER documentation. The patient states he felt sleepy this morning and believes he may have actually fell asleep during dialysis. He does not recall the actual loss of consciousness. EMS reports that on scene he had a blood pressure 127/80 and a heart rate of 110 sinus tach. Occasional PVCs were observed. FS Glucose was 168. The dialysis session was about 50% complete when he became unresponsive and then was sent to the ER. On evaluation in the ER patient was completely asymptomatic without any chest pain. He was admitted by [facility] and was evaluated by Dr. Craig from cardiology. Patient was initiated on amiodarone drip and subsequently proceeded for VQ scan where he had another episode of V. tach arrest, CODE BLUE cardiac arrest code was activated. Patient was shocked out of the V. tach had about 2.5 minutes of CPR at that time. Subsequently he was transported to [facility] where I evaluated him immediately following his arrival. At that time patient was awake and alert and denied any chest pain or shortness of breath. He says that he passed out and does not recollect any other events. Shortly following patient's arrival to ICU he had a third episode where he became unresponsive and went into V. tach arrest. CPR/ACLS protocol initiated, patient converted spontaneously to sinus rhythm prior to defibrillation and became responsive. He denied any chest pain or shortness of breath following regaining of consciousness. Patient was given amiodarone 300 mg IV bolus following third episode of V. tach along with 2 g of magnesium sulfate IV push as well as 1 g of calcium chloride.. Patient is being treated with antibiotics for L1 osteomyelitis/ epidural abscess with rifampin and IV vancomycin. 11/17:cardiac cath by Dr. Bucio last night. 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 on heparin and NTG gtt following cardiac cath 11/18 Dr Pretty spoke with Dr Novak ID , agree pt is high risk, however with 2 episodes of Vtach arrest / requiring resuscitation / pt is even higher risk without revascularization. Dr Pretty spoke in depth with pt today , he will receive dialysis on and is now scheduled for CABG on 11/20 will dc IV amiodarone and change to po amiodarone 11/19 remain on heparin gtt, no fevers, receiving dialysis today no ectopy noted sinus julio c, will decrease dose of amiodarone for surgery in am Objective: GENERAL: SKIN: Warm and dry. color fair HEAD: Normocephalic. EYES: No scleral icterus. No injection or drainage. NECK: Supple, trachea midline. No JVD or lymphadenopathy. CARDIOVASCULAR: sinus julio c Regular rate and rhythm without murmurs, gallops, or rubs. RESPIRATORY: Breath sounds equal bilaterally. No accessory muscle use. GASTROINTESTINAL: Abdomen soft, non-tender, nondistended. MUSCULOSKELETAL: No cyanosis, or edema. BACK: Nontender without obvious deformity. No CVA tenderness. renal: receiving dialysis Vital Signs Date Time Temp Pulse Resp B/P Pulse Ox O2 Delivery O2 Flow Rate FiO2 11/19/16 07:39 16 11/19/16 07:00 98.4 57 16 95/66 95 11/19/16 07:00 95 Nasal Cannula 2.00 11/19/16 07:00 57 11/19/16 03:00 58 11/19/16 03:00 97.8 58 18 100/63 95 11/19/16 03:00 95 Nasal Cannula 2.00 11/18/16 23:00 98.2 62 18 107/70 97 11/18/16 23:00 62 11/18/16 23:00 97 Nasal Cannula 2.00 11/18/16 21:25 98 Nasal Cannula 2.00 11/18/16 19:00 61 11/18/16 19:00 98 Nasal Cannula 2.00 11/18/16 19:00 97.5 61 18 123/73 98 11/18/16 15:00 97.8 55 16 91/56 98 11/18/16 15:00 55 11/18/16 15:00 99 Nasal Cannula 2.00 11/18/16 11:00 98 Nasal Cannula 2.00 11/18/16 11:00 56 11/18/16 11:00 97.8 59 16 91/56 98 Labs: Laboratory Tests Test 11/19/16 11/19/16 00:49 07:42 Activated Partial 42.2 SEC 39.2 SEC Thromboplast Time (24.3-30.1) (24.3-30.1) White Blood Count 9.0 TH/MM3 (4.0-11.0) Red Blood Count 2.76 MIL/MM3 (4.50-5.90) Hemoglobin 8.7 GM/DL (13.0-17.0) Hematocrit 26.3 % (39.0-51.0) Mean Corpuscular Volume 95.6 FL (80.0-100.0) Mean Corpuscular Hemoglobin 31.7 PG (27.0-34.0) Mean Corpuscular Hemoglobin 33.2 % Concent (32.0-36.0) Red Cell Distribution Width 17.2 % (11.6-17.2) Platelet Count 199 TH/MM3 (150-450) Mean Platelet Volume 8.1 FL (7.0-11.0) Blood Type O POSITIVE Antibody Screen NEGATIVE Crossmatch Leukocyte-Reduced Red Blood Cells Blood Bank Comment Result Diagram: 11/19/16 0742 11/18/16 0450 (1) Aortic stenosis Plan: [id number]. (2) Ventricular fibrillation Plan: has stabilized very well with BB/ Amio. Hardly any ectopy. decrease dose of amiodarone (3) 3-vessel coronary artery disease Plan: for surgery in am CABG (4) Coronary aneurysm Plan: Suspected mycotic (5) Cardiopulmonary arrest with successful resuscitation (6) Elevated troponin I level (7) Non-STEMI (non-ST elevated myocardial infarction) Plan: prob secondary to diagonal occlusion (8) First degree AV block Problem Qualifiers (1) Aortic stenosis: Qualified Code: I35.0 - Aortic valve stenosis, unspecified etiology Katie Riojas Nov 19, 2016 09:27
[2016-11-19] MEDS ORDERED: BISACODYL 10 MG SUPP RECTAL ONE (10:00)
[2016-11-19] MEDS ORDERED: LACTULOSE SYRUP 20 GM/30 ML CUP PO ONE (10:00)
--- NOTE | 2016-11-19 11:03 | HHI.NPPN ---
Subjective History of Present Illness late entry for 11/18 he was seen Objective Data Data 11/18/16 11/19/16 19:00 07:00 Intake Total 1660 ml 564 ml Output Total 0 ml 0 ml Balance 1660 ml 564 ml Intake Oral 960 ml 210 ml IV Total 700 ml 354 ml Output Urine Total 0 ml 0 ml # Bowel Movements 0 0 Vital Signs Date Time Temp Pulse Resp B/P Pulse Ox O2 Delivery O2 Flow Rate FiO2 11/19/16 07:39 16 11/19/16 07:00 98.4 57 16 95/66 95 11/19/16 07:00 95 Nasal Cannula 2.00 11/19/16 07:00 57 11/19/16 03:00 58 11/19/16 03:00 97.8 58 18 100/63 95 11/19/16 03:00 95 Nasal Cannula 2.00 11/18/16 23:00 98.2 62 18 107/70 97 11/18/16 23:00 62 11/18/16 23:00 97 Nasal Cannula 2.00 11/18/16 21:25 98 Nasal Cannula 2.00 11/18/16 19:00 61 11/18/16 19:00 98 Nasal Cannula 2.00 11/18/16 19:00 97.5 61 18 123/73 98 11/18/16 15:00 97.8 55 16 91/56 98 11/18/16 15:00 55 11/18/16 15:00 99 Nasal Cannula 2.00 -: 11/19/16 0742 11/18/16 0450 Physical Exam General Appearance: Well Developed, Comfortable Ears & Nose Ears & Nose Exam: Nasal Mucosa [place] Throat Throat Exam: Oral Mucosa [place] & Moist Neck Neck Exam: Trachea Midline Pulmonary Resp Exam: Breath Sounds Equal, No Distress Cardiology CV Exam: Irregular, Murmur Gastrointestinal/Abdomen GI Exam: Soft, Non-Tender, Bowel Sounds Present Musculoskeletal MS Exam: Normal Tone Integumentary Skin Exam: Warm, Dry Neurologic Neuro Exam: Alert, Awake, Oriented, Speech Clear, Moving All Extremities, Unit Secy Equal, No Focal Deficits Psychiatric Psych Exam: Appropriate Responses Assessment/Plan Problem List: (1) ESRD (end stage renal disease) on dialysis Plan: I saw him he was stable CAD Mycotic aneurysm no CP on HD MWF on Daptomycin for Epidural abscess Vtach resuscitated Araceli Freire MD Nov 19, 2016 11:03
--- NOTE | 2016-11-19 11:04 | HHI.NPPN ---
Subjective History of Present Illness he was seen at dialysis today Objective Data Data 11/18/16 11/19/16 19:00 07:00 Intake Total 1660 ml 564 ml Output Total 0 ml 0 ml Balance 1660 ml 564 ml Intake Oral 960 ml 210 ml IV Total 700 ml 354 ml Output Urine Total 0 ml 0 ml # Bowel Movements 0 0 Vital Signs Date Time Temp Pulse Resp B/P Pulse Ox O2 Delivery O2 Flow Rate FiO2 11/19/16 07:39 16 11/19/16 07:00 98.4 57 16 95/66 95 11/19/16 07:00 95 Nasal Cannula 2.00 11/19/16 07:00 57 11/19/16 03:00 58 11/19/16 03:00 97.8 58 18 100/63 95 11/19/16 03:00 95 Nasal Cannula 2.00 11/18/16 23:00 98.2 62 18 107/70 97 11/18/16 23:00 62 11/18/16 23:00 97 Nasal Cannula 2.00 11/18/16 21:25 98 Nasal Cannula 2.00 11/18/16 19:00 61 11/18/16 19:00 98 Nasal Cannula 2.00 11/18/16 19:00 97.5 61 18 123/73 98 11/18/16 15:00 97.8 55 16 91/56 98 11/18/16 15:00 55 11/18/16 15:00 99 Nasal Cannula 2.00 -: 11/19/16 0742 11/18/16 0450 Physical Exam General Appearance: Well Developed, Comfortable Ears & Nose Ears & Nose Exam: Nasal Mucosa Power Throat Throat Exam: Oral Mucosa Power & Moist Neck Neck Exam: Trachea Midline Pulmonary Resp Exam: Breath Sounds Equal, No Distress Cardiology CV Exam: Irregular, Murmur Gastrointestinal/Abdomen GI Exam: Soft, Non-Tender, Bowel Sounds Present Musculoskeletal MS Exam: Normal Tone Integumentary Skin Exam: Warm, Dry Neurologic Neuro Exam: Alert, Awake, Oriented, Speech Clear, Moving All Extremities, Metal [employer] Equal, No Focal Deficits Psychiatric Psych Exam: Appropriate Responses Assessment/Plan Problem List: (1) ESRD (end stage renal disease) on dialysis Plan: HD progress ow BP UF 1 L severe 3 vessel disease 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
[2016-11-19] MEDS: HEPARIN-D5W INJ 250 ML IV SCH (11:33)
--- NOTE | 2016-11-19 13:10 | HHI.PR ---
Subjective Subjective Remarks no cp no sob no ectopy on Amiodarone and hep gtt some back pain sleeping okay appetite fair Review of Systems Constitutional Constitutional Remarks 12 point ros completed, negative except as noted above Vitals/Results Intake & Output 11/18/16 11/18/16 11/19/16 15:00 23:00 07:00 Intake Total 1660 ml 564 ml Output Total 0 ml 0 ml Balance 1660 ml 564 ml Intake Oral 960 ml 210 ml IV Total 700 ml 354 ml Output Urine Total 0 ml 0 ml # Bowel Movements 0 0 Vital Signs Vital Signs Date Time Temp Pulse Resp B/P Pulse Ox O2 Delivery O2 Flow Rate FiO2 11/19/16 11:00 69 11/19/16 11:00 97.4 59 14 94/58 100 11/19/16 11:00 100 Nasal Cannula 1.00 11/19/16 07:39 16 11/19/16 07:00 98.4 57 16 95/66 95 11/19/16 07:00 95 Nasal Cannula 2.00 11/19/16 07:00 57 11/19/16 03:00 58 11/19/16 03:00 97.8 58 18 100/63 95 11/19/16 03:00 95 Nasal Cannula 2.00 11/18/16 23:00 98.2 62 18 107/70 97 11/18/16 23:00 62 11/18/16 23:00 97 Nasal Cannula 2.00 11/18/16 21:25 98 Nasal Cannula 2.00 11/18/16 19:00 61 11/18/16 19:00 98 Nasal Cannula 2.00 11/18/16 19:00 97.5 61 18 123/73 98 11/18/16 15:00 97.8 55 16 91/56 98 11/18/16 15:00 55 11/18/16 15:00 99 Nasal Cannula 2.00 CBC/BMP: 11/19/16 0742 11/18/16 0450 Lab Results Laboratory Tests Test 11/18/16 11/19/16 11/19/16 18:30 00:49 07:42 Activated Partial 48.0 SEC 42.2 SEC 39.2 SEC Thromboplast Time White Blood Count 9.0 TH/MM3 Red Blood Count 2.76 MIL/MM3 Hemoglobin 8.7 GM/DL Hematocrit 26.3 % Mean Corpuscular Volume 95.6 FL Mean Corpuscular Hemoglobin 31.7 PG Mean Corpuscular Hemoglobin 33.2 % Concent Red Cell Distribution Width 17.2 % Platelet Count 199 TH/MM3 Mean Platelet Volume 8.1 FL Blood Type O POSITIVE Antibody Screen NEGATIVE Crossmatch Leukocyte-Reduced Red Blood Cells Blood Bank Comment Physical Exam General General Appearance: Well Developed, Comfortable Eyes Eye Exam: Pupils Equal, Pupils Reactive Ears & Nose Ears & Nose Exam: Nasal Mucosa [place] Throat Throat Exam: Oral Mucosa [place] & Moist Neck Neck Exam: Trachea Midline Pulmonary Resp Exam: Breath Sounds Equal, No Distress Cardiology CV Exam: Irregular, Murmur Gastrointestinal/Abdomen GI Exam: Soft, Non-Tender, Bowel Sounds Present, Non-Distended Musculoskeletal MS Exam: Normal Tone Integumentary Skin Exam: Warm, Dry Extremeties Extremities Exam: Pedal Pulses Palpable, Trace Edema Neurologic Neuro Exam: Alert, Awake, Oriented, Speech Clear, Moving All Extremities, Printer Apprentice Equal, No Focal Deficits Psychiatric Psych Exam: Appropriate Responses VTE Prophylaxis VTE Prophylaxis Meds: Heparin Assessment/Plan Assessment/Plan Assessment Syncope Status post cardiac arrest 3 Non-ST elevation myocardial infarction Status post cardiac catheterization 11/17/16 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 Recinos This patient was seen by myself and Dr. Recinos, this note is written on his behalf. Latrice Wilson Nov 19, 2016 13:10
[2016-11-19 15:36] LABS: APTT (PATIENT) 49.1 SEC (24.3-30.1)
[2016-11-19] MEDS: CINACALCET HYDROCHLORIDE 30 MG TAB PO SCH (16:00)
[2016-11-19] MEDS: VITAMIN B CMPLX/VITC/FOLIC AC CAP PO SCH (16:44)
[2016-11-19] MEDS: ASPIRIN 325 MG TAB PO SCH (16:45)
[2016-11-19] MEDS: RIFAMPIN 150 MG CAP PO SCH ×2 (16:45→20:40)
[2016-11-19] MEDS: CALCITRIOL 0.25 MCG CAP PO SCH (16:46)
[2016-11-19] MEDS: SODIUM CHLOR 0.9% 1000 ML INJ 1,000 ML IV SCH (17:00)
[2016-11-19] MEDS: AMIODARONE 200 MG TAB PO SCH (20:41)
[2016-11-19 23:31] LABS: APTT (PATIENT) 45.7 SEC (24.3-30.1)
[2016-11-20] VITALS (10 sets, daily range): BP systolic 88–121; BP diastolic 47–72; PULSE 52–83; RESP 15–20; TEMP 97–98.8; O2SAT 95–99
[2016-11-20] MEDS: HEPARIN-D5W INJ 250 ML IV SCH (04:42)
[2016-11-20 04:58] LABS: APTT (PATIENT) 49.9 SEC (24.3-30.1)
[2016-11-20] MEDS ORDERED: PHENYLEPHRINE HCL 10 MG/ML VIAL IV ONE (05:00)
[2016-11-20] MEDS ORDERED: VECURONIUM BROMIDE 10 MG VIAL IV ONE (05:00)
[2016-11-20] MEDS ORDERED: SODIUM BICARBONATE 8.4% INJ 50 MEQ/50 ML SYR IV ONE ×2 (05:00→20:00)
[2016-11-20] MEDS ORDERED: ARTIFICIAL TEARS OPTH OINT 3.5 APPLIC/3.5 GM TUBO ONE (05:00)
[2016-11-20] MEDS ORDERED: PROTAMINE SULFATE 250 MG/25 ML VIAL IV ONE ×2 (05:00→13:11)
[2016-11-20] MEDS ORDERED: CALCIUM CHLORIDE 10% SOLN 1 GRAM/10 ML SYR IV ONE (05:00)
[2016-11-20] MEDS: INSULIN NovoLIN REGULAR SUPPLEMENTAL SCALE SQ SCH ×3 (06:17→20:03)
[2016-11-20] MEDS: METOPROLOL TARTRATE 25 MG TAB PO SCH ×3 (06:18→06:30)
[2016-11-20] MEDS: VITAMIN B CMPLX/VITC/FOLIC AC CAP PO SCH (09:00)
[2016-11-20] MEDS: CALCITRIOL 0.25 MCG CAP PO SCH (09:00)
[2016-11-20] MEDS: DOCUSATE SODIUM 50 MG/SENNA 8.6 MG TAB PO SCH ×2 (09:00→22:45)
[2016-11-20] MEDS: RIFAMPIN 150 MG CAP PO SCH ×2 (09:16→22:46)
[2016-11-20] MEDS: AMIODARONE 200 MG TAB PO SCH ×2 (09:16→22:46)
[2016-11-20] MEDS: MUPIROCIN 2% OINT 1 APPLIC/GM SYR EACH NARE SCH ×2 (09:16→20:04)
[2016-11-20] MEDS: SODIUM CHLORIDE 0.9% FLUSH 10 ML FLUSH IV FLUSH SCH ×2 (09:16→20:04)
[2016-11-20] MEDS: ASPIRIN 325 MG TAB PO SCH (09:16)
[2016-11-20] MEDS ORDERED: VANCOMYCIN HCL 1000 MG VIAL ONE ×2 (11:50→11:56)
[2016-11-20] MEDS ORDERED: methylPREDNISolone SOD SUCC 125 MG/2 ML VIAL ONE (11:56)
[2016-11-20] MEDS ORDERED: HEPARIN SODIUM - SQ 10,000 UNITS/ML VIAL ONE ×2 (11:56→12:00)
[2016-11-20] MEDS ORDERED: CARDIOPLEGIC IRR 1,000 ML ONE (12:19)
[2016-11-20] MEDS ORDERED: POTASSIUM CHLORIDE 40 MEQ/20 ML VIAL ONE (12:20)
[2016-11-20] MEDS ORDERED: HEPARIN SODIUM - IV 10,000 UNITS/10 ML VIAL ONE (12:20)
[2016-11-20] MEDS ORDERED: CHLORHEXIDINE GLUCONATE 2 % 1 PACK (2 CLOTHS) TOPICAL ONE (12:47)
[2016-11-20] MEDS ORDERED: SODIUM CHLOR 0.9% 250 ML INJ 500 ML IV ONE (13:11)
[2016-11-20] MEDS ORDERED: NITROGLYCERIN 50 MG/DEXTROSE 5% SOLN 250 ML BTL IV ONE (13:11)
[2016-11-20] MEDS ORDERED: NORMOSOL R INJ 1,000 ML IV ONE (13:11)
[2016-11-20] MEDS ORDERED: SODIUM CHLORIDE 0.9% INJ 200 ML IV ONE (13:11)
[2016-11-20] MEDS ORDERED: AMINOCAPROIC ACID INJ 250 MG/ML 20 ML VIAL IV ONE (13:11)
[2016-11-20] MEDS ORDERED: EPINEPHrine HCL (1:1000) 30 MG/30 ML VIAL IV ONE (13:11)
--- NOTE | 2016-11-20 15:26 | HHI.NPPN ---
Subjective History of Present Illness he is going for CV surgery Objective Data Data 11/19/16 11/20/16 19:00 07:00 Intake Total 457 ml 610 ml Output Total 1000 ml 0 ml Balance -543 ml 610 ml Intake Oral 120 ml 240 ml IV Total 337 ml 370 ml Output Urine Total 0 ml 0 ml Hemodialysis 1000 ml # Voids 0 # Bowel Movements 0 0 Vital Signs Date Time Temp Pulse Resp B/P Pulse Ox O2 Delivery O2 Flow Rate FiO2 11/20/16 11:00 98.8 66 18 121/72 99 11/20/16 11:00 66 11/20/16 11:00 99 Nasal Cannula 2.00 11/20/16 07:40 97.0 59 20 88/53 98 11/20/16 07:40 98 Nasal Cannula 2.00 11/20/16 07:00 55 11/20/16 03:02 95 Nasal Cannula 2.00 11/20/16 03:02 52 11/20/16 03:02 98.0 52 15 93/59 95 11/19/16 23:17 60 11/19/16 23:17 97.9 58 15 94/55 99 11/19/16 23:17 98 Nasal Cannula 2.00 11/19/16 20:50 97 Nasal Cannula 2.00 11/19/16 19:15 98.1 60 17 101/65 99 11/19/16 19:15 99 Nasal Cannula 2.00 11/19/16 19:00 61 11/19/16 15:55 97 2.00 11/19/16 15:50 16 -: 11/19/16 0742 11/18/16 0450 Physical Exam General Appearance: Well Developed, Comfortable Eyes Eye Exam: Pupils Equal, Pupils Reactive Ears & Nose Ears & Nose Exam: Nasal Mucosa [place] Throat Throat Exam: Oral Mucosa [place] & Moist Neck Neck Exam: Trachea Midline Pulmonary Resp Exam: Breath Sounds Equal, No Distress Cardiology CV Exam: Irregular, Murmur Gastrointestinal/Abdomen GI Exam: Soft, Non-Tender, Bowel Sounds Present, Non-Distended Musculoskeletal MS Exam: Normal Tone Integumentary Skin Exam: Warm, Dry Extremeties Extremities Exam: Pedal Pulses Palpable, Trace Edema Neurologic Neuro Exam: Alert, Awake, Oriented, Speech Clear, Moving All Extremities, Touch Up Worker Equal, No Focal Deficits Psychiatric Psych Exam: Appropriate Responses Assessment/Plan Problem List: (1) ESRD (end stage renal disease) on dialysis Plan: severe 3 vessel disease 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
[2016-11-20] MEDS ORDERED: DEXMEDETOMIDINE HCL 200 MCG/2 ML VIAL ONE (16:12)
[2016-11-20] MEDS ORDERED: ACETAMINOPHEN 1000 MG/100 ML VIAL IV ONE (16:12)
[2016-11-20] MEDS ORDERED: LACTATED RINGER'S 1000 ML INJ 500 ML IV PRN (18:08)
[2016-11-20] MEDS ORDERED: CLEVIDIPINE INJ 50 ML IV SCH (18:15)
[2016-11-20] MEDS ORDERED: DEXTROSE 50% IN WATER 50 ML VIAL(D50) IV PUSH PRN (18:15)
[2016-11-20] MEDS ORDERED: Post-op Orders (for Pharmacy) MISC OTHER ONE (18:15)
[2016-11-20] MEDS ORDERED: CALCIUM CHLORIDE INJ 1 GM in SODIUM CHLORIDE 0.9% INJ 100 ML IV PRN (18:15)
[2016-11-20] MEDS ORDERED: INSULIN REGULAR (IV INFUSION) 100 UNITS in SODIUM CHLORIDE 0.9% INJ 99 ML IV SCH (18:15)
[2016-11-20] MEDS ORDERED: MAGNESIUM SULFATE INJ 2 GM in SODIUM CHLORIDE 0.9% INJ 100 ML IV PRN ×4 (18:15)
[2016-11-20] MEDS ORDERED: RESP: RACEPINEPHRINE 2.25% 0.5 ML NEB NEB PRN (18:15)
[2016-11-20] MEDS ORDERED: ONDANSETRON HCL 4 MG/2 ML VIAL IV PUSH PRN (18:15)
[2016-11-20] MEDS ORDERED: hydrALAZINE HCL 20 MG/ML VIAL IV PRN (18:15)
[2016-11-20] MEDS ORDERED: ACETAMINOPHEN 650 MG SUPP RECTAL PRN (18:15)
[2016-11-20] MEDS ORDERED: ACETAMINOPHEN 325 MG TAB PO PRN (18:15)
[2016-11-20] MEDS ORDERED: CALCIUM CHLORIDE 10% 1 GRAM/10 ML VIAL IV PRN (18:15)
[2016-11-20] MEDS ORDERED: METOPROLOL TARTRATE 5 MG/5 ML VIAL IV PUSH PRN (18:15)
[2016-11-20] MEDS ORDERED: RESP: ALBUTEROL 2.5 MG/IPRATROPIUM 0.5 MG NEB (PRN) NEB (18:15)
--- NOTE | 2016-11-20 18:29 | PD.OP ---
cc: Mariel Pretty MD; Issac Bucio MD Operative Report Date of Surgery: Nov 20, 2016 Preoperative Diagnosis: (1) 3-vessel coronary artery disease (2) Non-STEMI (non-ST elevated myocardial infarction) (3) Coronary aneurysm (4) Cardiopulmonary arrest with successful resuscitation Postoperative Diagnosis: same Procedure: CABG x 5 NUNEZ to LAD SVG to AM SVG to LPDA SVG to OM2 SVG to D! 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 Pink Surgeon: Mariel Pretty Development Expert(s): LUIS ALBERTO Bello Operation and Findings: The risks, benefits, complications, treatment options, and expected outcomes were discussed with the patient. The possibilities of reaction to medication, pulmonary aspiration, perforation of viscus, bleeding, recurrent infection, the need for additional procedures, failure to diagnose a condition, and creating a complication requiring transfusion or operation were discussed with the patient. The patient concurred with the proposed plan, giving informed consent. The site of surgery properly noted/marked. The patient was taken to Operating Room, identified as Roland Conrad and the procedure verified as CABG, EVH, LEONARD, possible repair of coronary artery aneurysm. A Time Out was held and the above information confirmed. Standard monitoring lines were placed. General anesthesia was induced. The patient was prepped and draped in a sterile fashion. A median sternotomy was performed and electrocautery was used to obtain hemostasis. The left internal mammary artery was procured as a pedicle from the 7th rib to the 1st rib in the usual manner. A 700ml serous left pleural effusion was drained. Simultaneously left greater saphenous vein was procured from the left leg using a minimally invasive endoscopic technique. The vein was prepared for anastomosis and the leg wound was irrigated and closed in 2 layers. The pericardium was opened and a pericardial sling was created using interrupted 0 silk sutures. The patient was heparinized for cardiopulmonary bypass and the distal mammary pedicle was instrumented for anastomosis. The heart was instrumented for cardiopulmonary bypass in the usual manner. Antegrade blood cardioplegia was employed. The patient was placed on cardiopulmonary bypass. Adhesions between the pericardium and epicardium were encountered in the area of the coronary aneurysm. The LAD and D1 were palpably calcified. An aortic cross-clamp was applied and the heart was arrested using cold blood cardioplegia. Antegrade cardioplegia was administered after he each anastomosis. Adhesions were carefully lysed around this aneurysm which clearly involved the D1 artery. After adequate arrest, the distal right coronary circulation was investigated and the acute marginal artery was opened with a [place] blade and found to be a 1.5 millimeter fair target. Saphenous vein was approximated to the AM artery using a running 7 0 Prolene suture. The graft was measured for length and orientation and the proximal anastomosis was constructed to the ascending aorta using a running 5 0 Prolene suture after creating an aortotomy with a 5 millimeter punch. The left PDA was opened with a [place] blade and found to be a 1.5 millimeter fair target. Saphenous vein was approximated to the LPDA artery using a running 7 0 Prolene suture. The graft was measured for length and orientation and the proximal anastomosis was constructed to the ascending aorta using a running 5 0 Prolene suture after creating an aortotomy with a 5 millimeter punch. The OM2 artery was opened with a [place] blade and found to be a 1.5 millimeter fair target. Saphenous vein was approximated to the OM2 artery using a running 7 0 Prolene suture. The graft was measured for length and orientation and the proximal anastomosis was constructed to the ascending aorta using a running 5 0 Prolene suture after creating an aortotomy with a 5 millimeter punch. The 1st diagonal artery was then opened with a [place] blade and found to be a 1.5 millimeter good target. Saphenous vein was approximated to the D1 artery using a running 7 0 Prolene suture. The graft was measured for length and orientation and was suspended from the pericardium. The aneurysm was then opened and the wall was submitted for cultures as well as pathology. Thrombus was evacuated from the cavity and the origin was a fractured calcified D1 artery. This artery was ligated proximally and distally. to exclude the aneurysm. The distal LAD was opened with a [place] blade and found to be a 1.5 millimeter good target. The left internal mammary artery was approximated to the LAD using a running 7 0 Prolene suture. The pedicle was attached to the epicardium using interrupted 5 0 silk suture. The patient was systemically rewarmed and received a hotshot dose of warm blood cardioplegia. The aorta was vented and the proximal anastomosis to the D1 graft was accomplished using a running 5 0 Prolene suture after creating an aortotomy was a 5 millimeter punch. The cross-clamp was removed and all proximal and distal anastomoses were examined for hemostasis. Temporary atrial pacing on wires were positioned and brought out through the skin in the usual manner. The patient was weaned from cardiopulmonary bypass. Protamine was given. There was no adverse reaction. Decannulation was carried out without incident. Wound was checked for hemostasis which was obtained using electrocautery. A 36 Georgian mediastinal and 32 Georgian left pleural chest was were placed and secured to the skin with 0 silk suture. The sternum was closed with stainless steel wire. The fascia was closed with 1. PDS. The subcutaneous tissue was closed using a running 2-0 Vicryl suture. The skin was closed with 4-0 Monocryl. Sterile dressings were placed. At the end of the operation, all sponge, instruments, and needle counts were correct. The patient was transferred to the CVICU in stable condition. Findings: Large D1 pseudo aneurysm with surrounding inflammation. Diffuse CAD and moderate . XC: 102 min CPB: 138 min Drains: mediastinal x 1 pleural x 1 Specimens: aneurysm wall for culture and permanent examination Complications: none Disposition: to CVICU in guarded condition Condition:stable Pacing Wires: 2 atrial Mariel Pretty MD Nov 20, 2016 18:29
[2016-11-20] MEDS ORDERED: SODIUM BICARBONATE 8.4% INJ 50 ML ONE (19:15)
[2016-11-20] MEDS ORDERED: fentaNYL CITRATE 1000 MCG/20 ML VIAL ONE (19:35)
[2016-11-20] MEDS ORDERED: MIDAZOLAM HCL 5 MG/5 ML VIAL ONE (19:35)
--- NOTE | 2016-11-20 19:36 | RADRPT ---
EXAM DATE/TIME: 11/20/2016 19:06 [facility] COMPARISON: CHEST SINGLE AP, November 16, 2016, 12:41. INDICATIONS : Status post CABG. MEDICAL HISTORY : Renal failure, chronic. Diabetes mellitus type 1. Hypertension. SURGICAL HISTORY : CABG. ENCOUNTER: Initial ACUITY: 1 day PAIN SCORE: Non-responsive. LOCATION: Bilateral chest FINDINGS: A single view of the chest demonstrates endotracheal tube in satisfactory position. Central and left- sided chest tubes present. No pneumothorax. Right central line in right atrium. Small amount of locul ated fluid in minor fissure. Mild basilar atelectasis. No significant effusion. CONCLUSION: 1. Postoperative CABG with support apparatus as above. No pneumothorax. Small bowel loculated fluid r ight minor fissure. Subsegmental airspace disease at the bases most characteristic of atelectasis. Kei Gu MD on November 20, 2016 at 19:32 Board Certified Radiologist. This report was verified electronically.
[2016-11-20] MEDS: ALBUMIN HUMAN 5% 12.5 GM/250 ML BOTTLE IV PRN ×2 (20:09→22:46)
[2016-11-20] MEDS: ACETAMINOPHEN 1000 MG/100 ML VIAL IV SCH (20:41)
[2016-11-20] MEDS: RESP: ALBUTEROL 2.5 MG/IPRATROPIUM 0.5 MG NEB (SCH) NEB (21:29)
[2016-11-20] MEDS: PHENYLEPHRINE INJ 40 MG in DEXTROSE 5% IN WATE 500 ML INJ 496 ML IV SCH ×2 (22:23)
[2016-11-21] VITALS (9 sets, daily range): BP systolic 82–135; BP diastolic 43–72; PULSE 56–70; RESP 15–20; TEMP 97.3–98; O2SAT 98–100
[2016-11-21] MEDS: ACETAMINOPHEN 1000 MG/100 ML VIAL IV SCH ×3 (02:11→14:00)
[2016-11-21] MEDS: RESP: ALBUTEROL 2.5 MG/IPRATROPIUM 0.5 MG NEB (SCH) NEB ×3 (04:20→22:40)
--- NOTE | 2016-11-21 04:22 | RADRPT ---
EXAM DATE/TIME: 11/21/2016 03:42 [facility] COMPARISON: CHEST SINGLE AP, November 20, 2016, 19:06. INDICATIONS : Shortness of breath, possible pulmonary disease. MEDICAL HISTORY : Renal failure, chronic. Hypertension Anemia SURGICAL HISTORY : CABG. Umbilical hernia repair. Left arm A-V shunt ENCOUNTER: Subsequent ACUITY: 2 days PAIN SCORE: Non-responsive. LOCATION: Bilateral chest FINDINGS: A single view of the chest demonstrates right midlung fluid in the major fissure versus opacity. Lung s are otherwise clear. Right jugular central line in chest tubes are stable. No pneumothorax. Status post median sternotomy.. Osseous structures are intact. CONCLUSION: 1. Cardiomegaly and previous CABG. 2. No pneumothorax. 3. Minimal fluid in the minor fissure on the right versus minimal opacity. Chris Sorto MD on November 21, 2016 at 4:19 Board Certified Radiologist. This report was verified electronically.
[2016-11-21 04:35] LABS: HEMATOCRIT 27.9 % (39.0-51.0); MEAN CORPUSCULAR HEMOGLOBIN 30.8 PG (27.0-34.0); MEAN CORPUSCULAR HGB CONC 33.1 % (32.0-36.0); PLATELET COUNT 226 TH/MM3 (150-450); RED CELL DISTRIBUTION WIDTH 18.9 % (11.6-17.2); REVIEW FLAG FINAL; WHITE BLOOD COUNT 15.4 TH/MM3 (4.0-11.0)
[2016-11-21 05:06] LABS: BICARBONATE 24.8 MEQ/L (21.0-32.0); MAGNESIUM 3.2 MG/DL (1.5-2.5); POTASSIUM 5.1 MEQ/L (3.5-5.1)
[2016-11-21] MEDS: PHENYLEPHRINE INJ 40 MG in DEXTROSE 5% IN WATE 500 ML INJ 496 ML IV SCH ×4 (05:55→20:28)
[2016-11-21] MEDS: INSULIN NovoLIN REGULAR SUPPLEMENTAL SCALE SQ SCH (05:55)
[2016-11-21] MEDS: PANTOPRAZOLE SOD 40 MG DELAYED RELEASE TAB PO SCH (05:58)
[2016-11-21] MEDS ORDERED: SODIUM CHLOR 0.45% 500 ML INJ 500 ML IV ONE (07:30)
[2016-11-21] MEDS: SODIUM CHLORIDE 0.9% FLUSH 10 ML FLUSH IV FLUSH SCH ×2 (09:00→20:29)
[2016-11-21] MEDS: AMIODARONE 200 MG TAB PO SCH ×2 (09:00→20:29)
[2016-11-21] MEDS: RIFAMPIN 150 MG CAP PO SCH ×2 (09:00→20:29)
[2016-11-21] MEDS: VITAMIN B CMPLX/VITC/FOLIC AC CAP PO SCH (09:00)
[2016-11-21] MEDS: CALCITRIOL 0.25 MCG CAP PO SCH (09:00)
[2016-11-21] MEDS: ASPIRIN 81 MG CHEW TAB PO SCH (09:00)
[2016-11-21] MEDS: INSULIN ASPART SUPPLEMENTAL SCALE SQ SCH ×4 (10:00→22:00)
[2016-11-21] MEDS ORDERED: BISACODYL 10 MG SUPP RECTAL PRN (10:15)
[2016-11-21] MEDS ORDERED: DEXTROSE 50% IN WATER 50 ML VIAL(D50) IV PRN (10:15)
[2016-11-21] MEDS ORDERED: GLUCAGON 1 MG/ML VIAL OTHER PRN (10:15)
[2016-11-21] MEDS ORDERED: SOD PHOSPHATE/SOD BIPHOSPHATE (ADULT) ENEMA 133ML RECTAL PRN (10:15)
--- NOTE | 2016-11-21 10:32 | HHI.NPPN ---
Subjective History of Present Illness he had CV surgery Additional Remarks sitting in chair Review of Systems General Constitutional: Fatigue Cardiovascular Cardiac: Chest Pain Objective Data Data 11/20/16 11/21/16 19:00 07:00 Intake Total 1380 ml Output Total 770 ml Balance 610 ml Intake Oral 480 ml IV Total 900 ml Output Urine Total 0 ml Chest Tube Drainage Total 770 ml # Bowel Movements 0 Vital Signs Date Time Temp Pulse Resp B/P Pulse Ox O2 Delivery O2 Flow Rate FiO2 11/21/16 08:55 100 Nasal Cannula 2.00 11/21/16 03:11 98 Nasal Cannula 2.00 11/21/16 03:11 98.0 65 15 96/59 98 123/57 11/21/16 03:11 67 11/21/16 03:11 66 11/20/16 23:10 60 11/20/16 23:10 97.9 60 15 88/60 99 104/47 11/20/16 23:10 60 11/20/16 23:10 99 Nasal Cannula 2.00 11/20/16 21:31 97 Nasal Cannula 2.00 11/20/16 21:25 97 Nasal Cannula 2 11/20/16 21:00 98 40 11/20/16 21:00 40 11/20/16 19:05 99 Mechanical Ventilator 70 11/20/16 19:05 98.6 83 19 99/58 99 102/58 11/20/16 19:05 70 11/20/16 19:00 99 70 11/20/16 19:00 83 11/20/16 11:00 98.8 66 18 121/72 99 11/20/16 11:00 66 11/20/16 11:00 99 Nasal Cannula 2.00 -: 11/21/16 0357 11/21/16 0357 Microbiology 11/20/16 Gram Stain - Final, Resulted 11/20/16 Wound Culture, Resulted Pending 11/20/16 Acid Fast Stain, Received Pending 11/20/16 Mycobacterial Culture, Received Pending 11/20/16 Fungal Smear - Final, Resulted NO FUNGAL ELEMENTS SEEN. 11/20/16 Fungal Culture, Resulted Pending Medication Review Current Medications Medications (Trade) Dose Ordered Sig/[place] Route Start Time Stop Time Status Last Admin (Narcan Inj) 0.4 mg UNSCH PRN IV 11/16/16 16:15 (Dulcolax Supp) 10 mg DAILY PRN RECTAL 11/16/16 16:15 (Lactulose Liq) 30 ml DAILY PRN PO 11/16/16 16:15 (Rocaltrol) 0.5 mcg DAILY PO 11/17/16 09:00 11/19/16 16:46 (Rifampin) 300 mg Q12HR PO 11/16/16 21:00 11/20/16 22:46 (Nephrocaps) 1 cap DAILY PO 11/17/16 09:00 11/19/16 16:44 (Sensipar) 60 mg DAILY@16 PO 11/17/16 16:00 11/19/16 16:00 Patient Own Medication PT OWN MED:VELPHORO(SUCROFERRIC OXYHYDROXIDE)500... TIDAC OTHER 11/17/16 08:00 Hold (NS Flush) 2 ml BID IV FLUSH 11/17/16 21:00 11/20/16 20:04 (NS Flush) 2 ml UNSCH PRN IV FLUSH 11/17/16 11:45 (Bactroban Nasal 2% Oint) 1 applic BID EACH NARE 11/17/16 11:45 11/22/16 11:44 11/20/16 09:16 Oxycodone/ Acetaminophen 1 tab 1 tab Q4H PRN PO 11/18/16 06:15 (Cubicin Inj/NS Inj) 100 ml @ 200 mls/hr Q48H IV 11/18/16 15:00 11/18/16 15:17 (Pill Splitter) 1 ea UNSCH PRN OTHER 11/18/16 10:45 Amiodarone HCl 200 mg 200 mg Q12HR PO 11/19/16 21:00 11/20/16 22:46 (Neosynephrine Inj/D5W 500 ml Inj) 500 ml @ 0 mls/hr TITRATE IV 11/20/16 18:15 11/21/16 05:55 (Albumin 5% Inj) 12.5 gm UNSCH PRN IV 11/20/16 18:15 11/20/16 22:46 (Aspirin Chew) 81 mg DAILY PO 11/21/16 09:00 (Protonix) 40 mg DAILY@06 PO 11/21/16 06:00 11/21/16 05:58 (Tylenol) 650 mg Q4H PRN PO 11/20/16 18:15 (Ofirmev Inj) 1,000 mg Q6H IV 11/20/16 20:00 11/21/16 14:01 11/21/16 02:11 (Zofran Inj) 4 mg Q6H PRN IV PUSH 11/20/16 18:15 (Apresoline Inj) 10 mg Q4H PRN IV 11/20/16 18:15 (D50w (Vial) Inj) 50 ml UNSCH PRN IV PUSH 11/20/16 18:15 (Colace) 100 mg BID PO 11/21/16 21:00 (Theragran M Tab) 1 tab DAILY PO 11/22/16 09:00 UNV (Milk Of Magnesia Liq) 30 ml DAILY PO 11/22/16 09:00 UNV (Miralax) 17 gm DAILY PO 11/22/16 09:00 (Senokot) 8.6 mg HS PO 11/21/16 21:00 UNV (Fleets Enema (Adult)) 133 ml UNSCH PRN RECTAL 11/21/16 10:15 UNV (Lopressor) 12.5 mg BID PO 11/22/16 09:00 UNV (NovoLOG SUPPLEMENTAL SCALE) 1 02,06,10,14,18,22 SQ 11/21/16 14:00 UNV (D50w (Vial) Inj) 50 ml UNSCH PRN IV 11/21/16 10:15 UNV (Glucagon Inj) 1 mg UNSCH PRN OTHER 11/21/16 10:15 UNV Physical Exam General Appearance: Well Developed, Comfortable Eyes Eye Exam: Pupils Equal, Pupils Reactive Ears & Nose Ears & Nose Exam: Nasal Mucosa [place] Throat Throat Exam: Oral Mucosa [place] & Moist Neck Neck Exam: Trachea Midline Pulmonary Resp Exam: Breath Sounds Equal, No Distress Cardiology CV Exam: Irregular, Arrhythmia, Murmur Gastrointestinal/Abdomen GI Exam: Soft, Non-Tender, Bowel Sounds Present, Non-Distended Musculoskeletal MS Exam: Normal Tone Integumentary Skin Exam: Warm, Dry Extremeties Extremities Exam: Pedal Pulses Palpable, Trace Edema Neurologic Neuro Exam: Alert, Awake, Oriented, Speech Clear, Moving All Extremities, Corporate Administrator Equal, No Focal Deficits Psychiatric Psych Exam: Appropriate Responses Assessment/Plan Problem List: (1) ESRD (end stage renal disease) on dialysis Plan: severe 3 vessel disease Mycotic aneurysm had CV surgery follow culture on Daptomycin for Epidural abscess doing well BP low side may do HD tomorrow (2) 3-vessel coronary artery disease Plan: he had surgery mycotic aneurysm repaired Araceli Freire MD Nov 21, 2016 10:32
--- NOTE | 2016-11-21 11:08 | PD.CAR.PN ---
CVT Progress Note Subjective/Hospital Course: 11/16: 71 years old male with ESRD on HD who was brought to ER from dialysis where he suddenly became unresponsive. On scene providers performed CPR for approximately 5 minutes. He underwent defibrillation twice and had a return of spontaneous circulation per ER documentation. The patient states he felt sleepy this morning and believes he may have actually fell asleep during dialysis. He does not recall the actual loss of consciousness. EMS reports that on scene he had a blood pressure 127/80 and a heart rate of 110 sinus tach. Occasional PVCs were observed. FS Glucose was 168. The dialysis session was about 50% complete when he became unresponsive and then was sent to the ER. On evaluation in the ER patient was completely asymptomatic without any chest pain. [facility] and was evaluated by Dr. Craig from cardiology. Patient was initiated on amiodarone drip and subsequently proceeded for VQ scan where he had another episode of V. tach arrest, CODE BLUE cardiac arrest code was activated. Patient was shocked out of the V. tach had about 2.5 minutes of CPR at that time. Subsequently he was transported to [facility] where I evaluated him immediately following his arrival. At that time patient was awake and alert and denied any chest pain or shortness of breath. He says that he passed out and does not recollect any other events. Shortly following patient's arrival to ICU he had a third episode where he became unresponsive and went into V. tach arrest. CPR/ACLS protocol initiated, patient converted spontaneously to sinus rhythm prior to defibrillation and became responsive. He denied any chest pain or shortness of breath following regaining of consciousness. Patient was given amiodarone 300 mg IV bolus following third episode of V. tach along with 2 g of magnesium sulfate IV push as well as 1 g of calcium chloride.. Patient is being treated with antibiotics for L1 osteomyelitis/ epidural abscess with rifampin and IV vancomycin. 11/17:cardiac cath by Dr. Bucio last night. 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 on heparin and NTG gtt following cardiac cath 11/18 Dr Pretty spoke with Dr Novak ID , agree pt is high risk, however with 2 episodes of Vtach arrest / requiring resuscitation / pt is even higher risk without revascularization. Dr Pretty spoke in depth with pt today , he will receive dialysis on / and is now scheduled for CABG on 11/20 will dc IV amiodarone and change to po amiodarone 11/19 remain on heparin gtt, no fevers, receiving dialysis today no ectopy noted sinus julio c, will decrease dose of amiodarone for surgery in am 11/20 surgery: CABG x 5, NUNEZ to LAD, SVG to AM, SVG to LPDA, SVG to OM2, SVG to Diag , EVH, LEONARD crystalloid 1000cc, 1900cc cell saver, 2500cc EBL, one unit plt extubated after surgery 11/21 on Maikol gtt during the night on nasal cannula , received small fluid bolus last pm hold on dialysis today 06/20 labile BP / resume in am / and re-eval later today K + 5.1 aggressive pulm toileting , OOB ambulate leave in ICU today Objective: Vital Signs Date Time Temp Pulse Resp B/P Pulse Ox O2 Delivery O2 Flow Rate FiO2 11/21/16 08:55 100 Nasal Cannula 2.00 11/21/16 03:11 98 Nasal Cannula 2.00 11/21/16 03:11 98.0 65 15 96/59 98 123/57 11/21/16 03:11 67 11/21/16 03:11 66 11/20/16 23:10 60 11/20/16 23:10 97.9 60 15 88/60 99 104/47 11/20/16 23:10 60 11/20/16 23:10 99 Nasal Cannula 2.00 11/20/16 21:31 97 Nasal Cannula 2.00 11/20/16 21:25 97 Nasal Cannula 2 11/20/16 21:00 98 40 11/20/16 21:00 40 11/20/16 19:05 99 Mechanical Ventilator 70 11/20/16 19:05 98.6 83 19 99/58 99 102/58 11/20/16 19:05 70 11/20/16 19:00 99 70 11/20/16 19:00 83 11/20/16 11:00 98.8 66 18 121/72 99 11/20/16 11:00 66 11/20/16 11:00 99 Nasal Cannula 2.00 Labs: Laboratory Tests Test 11/21/16 03:57 White Blood Count 15.4 TH/MM3 (4.0-11.0) Red Blood Count 3.00 MIL/MM3 (4.50-5.90) Hemoglobin 9.2 GM/DL (13.0-17.0) Hematocrit 27.9 % (39.0-51.0) Mean Corpuscular Volume 93.0 FL (80.0-100.0) Mean Corpuscular Hemoglobin 30.8 PG (27.0-34.0) Mean Corpuscular Hemoglobin 33.1 % Concent (32.0-36.0) Red Cell Distribution Width 18.9 % (11.6-17.2) Platelet Count 226 TH/MM3 (150-450) Mean Platelet Volume 8.0 FL (7.0-11.0) Sodium Level 141 MEQ/L (136-145) Potassium Level 5.1 MEQ/L (3.5-5.1) Chloride Level 105 MEQ/L (98-107) Carbon Dioxide Level 24.8 MEQ/L (21.0-32.0) Anion Gap 11 MEQ/L (5-15) Blood Urea Nitrogen 39 MG/DL (7-18) Creatinine 8.11 MG/DL (0.60-1.30) Estimat Glomerular Filtration 7 ML/MIN (>89) Rate Random Glucose 110 MG/DL (74-106) Calcium Level 8.9 MG/DL (8.5-10.1) Magnesium Level 3.2 MG/DL (1.5-2.5) Total Creatine Kinase 115 U/L (39-308) Result Diagram: 11/21/1635611/21/167 Telemetry: NSR (1) Aortic stenosis Plan: [id number]. 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
[2016-11-21] MEDS: MAGNESIUM HYDROXIDE SUSP 30 ML CUP PO SCH (13:00)
[2016-11-21 13:39] LABS: APTT (PATIENT) 46.5 SEC (24.3-30.1)
[2016-11-21] MEDS: CINACALCET HYDROCHLORIDE 30 MG TAB PO SCH (16:00)
--- NOTE | 2016-11-21 17:46 | HHI.PR ---
Review of Systems Constitutional Constitutional Remarks General weakness, back pain, intolerance to minimal activity, 10 systems reviewed otherwise negative Vitals/Results Intake & Output 11/20/16 11/20/16 11/21/16 15:00 23:00 07:00 Intake Total 1380 ml Output Total 770 ml Balance 610 ml Intake Oral 480 ml IV Total 900 ml Output Urine Total 0 ml Chest Tube Drainage Total 770 ml # Bowel Movements 0 Vital Signs Vital Signs Date Time Temp Pulse Resp B/P Pulse Ox O2 Delivery O2 Flow Rate FiO2 11/21/16 17:03 98.0 11/21/16 15:00 61 11/21/16 15:00 64 11/21/16 15:00 97.6 61 20 135/43 100 94/44 11/21/16 15:00 Nasal Cannula 11/21/16 11:00 97.3 64 20 129/72 99 82/45 11/21/16 11:00 64 11/21/16 11:00 97.3 64 20 129/72 99 82/45 11/21/16 11:00 Nasal Cannula 2.00 11/21/16 11:00 64 11/21/16 08:55 100 Nasal Cannula 2.00 11/21/16 07:00 56 11/21/16 07:00 98.0 56 20 95/59 99 96/50 11/21/16 07:00 Nasal Cannula 2.00 11/21/16 03:11 98 Nasal Cannula 2.00 11/21/16 03:11 98.0 65 15 96/59 98 123/57 11/21/16 03:11 67 11/21/16 03:11 66 11/20/16 23:10 60 11/20/16 23:10 97.9 60 15 88/60 99 104/47 11/20/16 23:10 60 11/20/16 23:10 99 Nasal Cannula 2.00 11/20/16 21:31 97 Nasal Cannula 2.00 11/20/16 21:25 97 Nasal Cannula 2 11/20/16 21:00 98 40 11/20/16 21:00 40 11/20/16 19:05 99 Mechanical Ventilator 70 11/20/16 19:05 98.6 83 19 99/58 99 102/58 11/20/16 19:05 70 11/20/16 19:00 99 70 11/20/16 19:00 83 CBC/BMP: 11/21/16 0357 11/21/16 0357 Lab Results Laboratory Tests Test 11/21/16 11/21/16 03:57 12:17 White Blood Count 15.4 TH/MM3 Red Blood Count 3.00 MIL/MM3 Hemoglobin 9.2 GM/DL Hematocrit 27.9 % Mean Corpuscular Volume 93.0 FL Mean Corpuscular Hemoglobin 30.8 PG Mean Corpuscular Hemoglobin 33.1 % Concent Red Cell Distribution Width 18.9 % Platelet Count 226 TH/MM3 Mean Platelet Volume 8.0 FL Sodium Level 141 MEQ/L Potassium Level 5.1 MEQ/L Chloride Level 105 MEQ/L Carbon Dioxide Level 24.8 MEQ/L Anion Gap 11 MEQ/L Blood Urea Nitrogen 39 MG/DL Creatinine 8.11 MG/DL Estimat Glomerular Filtration 7 ML/MIN Rate Random Glucose 110 MG/DL Calcium Level 8.9 MG/DL Magnesium Level 3.2 MG/DL Total Creatine Kinase 115 U/L Activated Partial 46.5 SEC Thromboplast Time Physical Exam General General Appearance: Well Developed, Comfortable Eyes Eye Exam: Pupils Equal, Pupils Reactive Ears & Nose Ears & Nose Exam: Nasal Mucosa [place] Throat Throat Exam: Oral Mucosa [place] & Moist Neck Neck Exam: Trachea Midline Pulmonary Resp Exam: Breath Sounds Equal, No Distress Cardiology CV Exam: Irregular, Arrhythmia, Murmur Gastrointestinal/Abdomen GI Exam: Soft, Non-Tender, Bowel Sounds Present, Non-Distended Musculoskeletal MS Exam: Normal Tone Integumentary Skin Exam: Warm, Dry Extremeties Extremities Exam: Pedal Pulses Palpable, Trace Edema Extremeties Remarks AV fistula both upper extremities Neurologic Neuro Exam: Alert, Awake, Oriented, Speech Clear, Moving All Extremities, Director Cardiac Equal, No Focal Deficits Psychiatric Psych Exam: Appropriate Responses VTE Prophylaxis VTE Prophylaxis Meds: Heparin Assessment/Plan Assessment/Plan Assessment Admitted following Syncope Status post cardiac arrest 3 Non-ST elevation myocardial infarction Status post cardiac catheterization 11/17/16 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 Status post CABG 5 on 11/20/16 Postoperative hypotension on pressors L1 osteomyelitis with back pain, on abx per ID End-stage renal disease Chronic hyperphosphatemia, today's phosphate level is normal History of anemia, diabetes, hypertension Anemia CKD Valvular disease Management Continue pressors to keep mean arterial pressure above 65 Routine post open-heart protocol appreciate consultants input, Nephrology, infectious disease, critical care, cardiology and cardiac surgery following continue abx per ID We will follow peripherally while on ICU Discussed with patient Discussed with nurse Puma Recinos MD Nov 21, 2016 17:46
--- NOTE | 2016-11-21 19:00 | EKG ---
Date Performed: 11/21/2016 Time Performed: 05:15:44 PTAGE: 71 years EKG: Sinus rhythm with 1st degree A-V block. Incomplete LBBB Low QRS voltages in precordial leads Compared to previous tracing, there's been no significant serial change Abnormal ECG PREVIOUS TRACING : 11/17/2016 06.15 DOCTOR: Krystal Kee Interpretating Date/Time 11/21/2016 19:00:04
[2016-11-21] MEDS: SENNOSIDES 8.6 MG TAB PO SCH (20:28)
[2016-11-21] MEDS: MUPIROCIN 2% OINT 1 APPLIC/GM SYR EACH NARE SCH (20:29)
[2016-11-21] MEDS: DOCUSATE SODIUM 100 MG CAP PO SCH (20:29)
[2016-11-22] VITALS (8 sets, daily range): BP systolic 80–130; BP diastolic 53–74; PULSE 66–86; RESP 16–20; TEMP 97.5–98.2; O2SAT 96–100
[2016-11-22] MEDS: INSULIN ASPART SUPPLEMENTAL SCALE SQ SCH ×6 (02:00→21:48)
[2016-11-22 04:38] LABS: AUTOMATED NEUTROPHIL # 7.1 TH/MM3 (1.8-7.7); BASOPHIL # 0.1 TH/MM3 (0-0.2); BASOPHIL % 1.1 % (0.0-2.0); EOSINOPHIL # 0.4 TH/MM3 (0-0.4); EOSINOPHIL % 3.5 % (0.0-4.0); HEMATOCRIT 25.6 % (39.0-51.0); HEMO FLAGS DIFF FINAL; LYMPH % 11.7 % (9.0-44.0); LYMPHOCYTE # 1.2 TH/MM3 (1.0-4.8); MEAN CELL VOLUME 94.4 FL (80.0-100.0); MEAN CORPUSCULAR HGB CONC 32.9 % (32.0-36.0); MONO % 14.6 % (0.0-8.0); NEUT % 69.1 % (16.0-70.0); PLATELET COUNT 192 TH/MM3 (150-450); RED BLOOD COUNT 2.72 MIL/MM3 (4.50-5.90); RED CELL DISTRIBUTION WIDTH 18.7 % (11.6-17.2); WHITE BLOOD COUNT 10.2 TH/MM3 (4.0-11.0)
[2016-11-22 05:14] LABS: BICARBONATE 26.7 MEQ/L (21.0-32.0); POTASSIUM 4.8 MEQ/L (3.5-5.1)
[2016-11-22] MEDS: oxyCODONE/ACETAMINOPHEN 5 MG/325 MG TAB PO PRN (05:41)
[2016-11-22] MEDS: PANTOPRAZOLE SOD 40 MG DELAYED RELEASE TAB PO SCH (05:44)
[2016-11-22] MEDS: RESP: ALBUTEROL 2.5 MG/IPRATROPIUM 0.5 MG NEB (SCH) NEB ×3 (07:49→20:39)
[2016-11-22] MEDS: MAGNESIUM HYDROXIDE SUSP 30 ML CUP PO SCH (09:00)
[2016-11-22] MEDS ORDERED: METOPROLOL TARTRATE 25 MG TAB PO SCH (09:00)
--- NOTE | 2016-11-22 10:34 | HHI.NPPN ---
Subjective History of Present Illness he had CV surgery Additional Remarks back in bed c/o pain at surgery site Review of Systems General Constitutional: Fatigue Cardiovascular Cardiac: Chest Pain Objective Data Data 11/21/16 11/22/16 19:00 07:00 Intake Total 3018 ml 1147 ml Output Total 250 ml 450 ml Balance 2768 ml 697 ml Intake Oral 720 ml 360 ml IV Total 2298 ml 787 ml Output Urine Total 0 ml 0 ml Chest Tube Drainage Total 250 ml 450 ml # Bowel Movements 0 Vital Signs Date Time Temp Pulse Resp B/P Pulse Ox O2 Delivery O2 Flow Rate FiO2 11/22/16 07:49 100 Nasal Cannula 3.00 11/22/16 03:00 66 11/22/16 03:00 97.5 67 20 101/65 99 11/22/16 03:00 67 11/22/16 03:00 99 Nasal Cannula 2.00 11/21/16 23:00 99 Nasal Cannula 2.00 11/21/16 23:00 70 11/21/16 23:00 97.4 68 20 95/58 99 11/21/16 23:00 68 11/21/16 22:52 99 Nasal Cannula 3.00 11/21/16 19:00 67 11/21/16 19:00 99 Nasal Cannula 2.00 11/21/16 19:00 60 11/21/16 19:00 97.8 61 20 83/50 99 11/21/16 17:03 98.0 11/21/16 15:00 61 11/21/16 15:00 64 11/21/16 15:00 97.6 61 20 135/43 100 94/44 11/21/16 15:00 Nasal Cannula 11/21/16 11:00 97.3 64 20 129/72 99 82/45 11/21/16 11:00 64 11/21/16 11:00 97.3 64 20 129/72 99 82/45 11/21/16 11:00 Nasal Cannula 2.00 11/21/16 11:00 64 -: 11/22/16 0350 11/22/16 0350 Physical Exam General Appearance: Well Developed, Comfortable Eyes Eye Exam: Pupils Equal, Pupils Reactive Ears & Nose Ears & Nose Exam: Nasal Mucosa [place] Throat Throat Exam: Oral Mucosa [place] & Moist Neck Neck Exam: Trachea Midline Pulmonary Resp Exam: Breath Sounds Equal, No Distress Cardiology CV Exam: Irregular, Arrhythmia, Murmur Gastrointestinal/Abdomen GI Exam: Soft, Non-Tender, Bowel Sounds Present, Non-Distended Musculoskeletal MS Exam: Normal Tone Integumentary Skin Exam: Warm, Dry Extremeties Extremities Exam: Pedal Pulses Palpable, Trace Edema Neurologic Neuro Exam: Alert, Awake, Oriented, Speech Clear, Moving All Extremities, Cause Analyst Equal, No Focal Deficits Psychiatric Psych Exam: Appropriate Responses Assessment/Plan Problem List: (1) ESRD (end stage renal disease) on dialysis Plan: severe 3 vessel disease 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
[2016-11-22] MEDS: PHENYLEPHRINE INJ 40 MG in DEXTROSE 5% IN WATE 500 ML INJ 496 ML IV SCH ×2 (11:06)
[2016-11-22] MEDS: MULTIVITAMINS/MINERALS THERAPEUTIC TAB PO SCH (12:14)
[2016-11-22] MEDS: CALCITRIOL 0.25 MCG CAP PO SCH (12:14)
[2016-11-22] MEDS: DOCUSATE SODIUM 100 MG CAP PO SCH ×2 (12:14→21:44)
[2016-11-22] MEDS: ASPIRIN 81 MG CHEW TAB PO SCH (12:14)
[2016-11-22] MEDS: VITAMIN B CMPLX/VITC/FOLIC AC CAP PO SCH (12:14)
[2016-11-22] MEDS: RIFAMPIN 150 MG CAP PO SCH ×2 (12:14→21:44)
[2016-11-22] MEDS: SODIUM CHLORIDE 0.9% FLUSH 10 ML FLUSH IV FLUSH SCH ×2 (12:15→21:00)
[2016-11-22] MEDS: MUPIROCIN 2% OINT 1 APPLIC/GM SYR EACH NARE SCH (12:15)
[2016-11-22] MEDS: AMIODARONE 200 MG TAB PO SCH ×2 (12:16→21:44)
[2016-11-22] MEDS: POLYETHYLENE GLYCOL 17 GM PKG PO SCH (12:17)
--- NOTE | 2016-11-22 13:19 | HHI.IDPN ---
Subjective Subjective Remarks Mr. Conrad is a 71-year-old occasional male with past medical history significant for end-stage renal disease on hemodialysis using an AV fistula. His past medical history is also significant for multiple infections likely related to Hemodialysis access site. Upon review of medical records it appears that in March 2015 patient had group B strep bacteremia. In February 2016 patient had MSSA bacteremia. 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 Upon review of the medical records it appears that patient was being seen by Dr. Farmer of infectious disease and the plan was to treat him for 12 weeks with IV vancomycin as well as rifampin. 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 Overnight events reviewed. Remains in the ICU. Not on pressors. No fevers No rash No Diarrhea Antibiotics Daptomycin IV Rifampin oral Lines Line sites with no evidence of infection. Past Medical History Reviewed. Allergies: Coded Allergies: *MDRO Multi-Drug Resistant Organism (Verified Adverse Reaction, Unknown, ) MRSA PCR screen POSITIVE - 03/13/16 MRSA (blood)-10/29/16 Objective . Vital Signs Date Time Temp Pulse Resp B/P Pulse Ox O2 Delivery O2 Flow Rate FiO2 11/22/16 11:00 98.2 74 16 104/59 99 104/74 11/22/16 07:49 100 Nasal Cannula 3.00 11/22/16 07:00 97.9 66 16 92/55 98 80/57 11/22/16 07:00 98 Nasal Cannula 2.00 11/22/16 07:00 18 11/22/16 03:00 66 11/22/16 03:00 97.5 67 20 101/65 99 11/22/16 03:00 67 11/22/16 03:00 99 Nasal Cannula 2.00 11/21/16 23:00 99 Nasal Cannula 2.00 11/21/16 23:00 70 11/21/16 23:00 97.4 68 20 95/58 99 11/21/16 23:00 68 11/21/16 22:52 99 Nasal Cannula 3.00 11/21/16 19:00 67 11/21/16 19:00 99 Nasal Cannula 2.00 11/21/16 19:00 60 11/21/16 19:00 97.8 61 20 83/50 99 11/21/16 17:03 98.0 11/21/16 15:00 61 11/21/16 15:00 64 11/21/16 15:00 97.6 61 20 135/43 100 94/44 11/21/16 15:00 Nasal Cannula 11/21/16 11/21/16 11/22/16 15:00 23:00 07:00 Intake Total 3018 ml 1147 ml Output Total 250 ml 450 ml Balance 2768 ml 697 ml Intake Oral 720 ml 360 ml IV Total 2298 ml 787 ml Output Urine Total 0 ml 0 ml Chest Tube Drainage Total 250 ml 450 ml # Bowel Movements 0 . Laboratory Tests Test 11/21/16 11/22/16 03:57 03:50 White Blood Count 15.4 TH/MM3 10.2 TH/MM3 Red Blood Count 3.00 MIL/MM3 2.72 MIL/MM3 Hemoglobin 9.2 GM/DL 8.4 GM/DL Hematocrit 27.9 % 25.6 % Mean Corpuscular Volume 93.0 FL 94.4 FL Mean Corpuscular Hemoglobin 30.8 PG 31.0 PG Mean Corpuscular Hemoglobin 33.1 % 32.9 % Concent Red Cell Distribution Width 18.9 % 18.7 % Platelet Count 226 TH/MM3 192 TH/MM3 Mean Platelet Volume 8.0 FL 7.7 FL Neutrophils (%) (Auto) 69.1 % Lymphocytes (%) (Auto) 11.7 % Monocytes (%) (Auto) 14.6 % Eosinophils (%) (Auto) 3.5 % Basophils (%) (Auto) 1.1 % Neutrophils # (Auto) 7.1 TH/MM3 Lymphocytes # (Auto) 1.2 TH/MM3 Monocytes # (Auto) 1.5 TH/MM3 Eosinophils # (Auto) 0.4 TH/MM3 Basophils # (Auto) 0.1 TH/MM3 CBC Comment DIFF FINAL Differential Comment Laboratory Tests Test 11/21/16 11/22/16 03:57 03:50 Sodium Level 141 MEQ/L 134 MEQ/L Potassium Level 5.1 MEQ/L 4.8 MEQ/L Chloride Level 105 MEQ/L 98 MEQ/L Carbon Dioxide Level 24.8 MEQ/L 26.7 MEQ/L Anion Gap 11 MEQ/L 9 MEQ/L Blood Urea Nitrogen 39 MG/DL 43 MG/DL Creatinine 8.11 MG/DL 9.05 MG/DL Estimat Glomerular Filtration 7 ML/MIN 6 ML/MIN Rate Random Glucose 110 MG/DL 130 MG/DL Calcium Level 8.9 MG/DL 8.8 MG/DL Magnesium Level 3.2 MG/DL 3.0 MG/DL Total Creatine Kinase 115 U/L Microbiology Date/Time Procedure Status Source Growth 11/20/16 16:43 Gram Stain - Final Resulted Wound Other 11/20/16 16:43 Wound Culture - Preliminary Resulted Wound Other NO GROWTH IN 48 HOURS. 11/20/16 16:43 Acid Fast Stain - Final Resulted Wound Other NO ACID FAST BACILLI SEEN 11/20/16 16:43 Mycobacterial Culture Resulted Wound Other Pending 11/20/16 16:43 Fungal Smear - Final Resulted Wound Other NO FUNGAL ELEMENTS SEEN. 11/20/16 16:43 Fungal Culture Resulted Wound Other Pending Imaging Last Impressions Thoracic Spine MRI 11/17/16 0000 Signed Impressions: Service Date/Time: Thursday, November 17, 2016 17:29 - CONCLUSION: 1. Resolution of previous epidural abscess. 2. Residual probable disc protrusion at T3-4 and T6- 7 is stable. 3. Discitis and osteomyelitis at T3-4 with a relatively stable signal changes in the structures since October 31. Kei Gu MD Lumbar Spine MRI 11/17/16 0000 Signed Impressions: Service Date/Time: Thursday, November 17, 2016 17:29 - CONCLUSION: 1. Chronic disc degeneration at L1-2 with mild to moderate stenosis. No other significant canal stenosis. No evidence for acute discitis or osteomyelitis. Kei Gu MD Lower Extremity Ultrasound 11/17/16 0000 Signed Impressions: Service Date/Time: Thursday, November 17, 2016 15:27 - CONCLUSION: Venous mapping as delineated above. Geovanni Flanagan MD Chest CT 11/17/16 0000 Signed Impressions: Service Date/Time: Thursday, November 17, 2016 18:23 - CONCLUSION: 1. Small right-sided effusion and small to moderate left effusion. Right effusion is at least partially loculated. There is dependent consolidation and atelectasis in both lungs. No adenopathy or pneumothorax. Kei Gu MD Cervical Spine MRI 11/17/16 0000 Signed Impressions: Service Date/Time: Thursday, November 17, 2016 17:29 - CONCLUSION: 1. Stable moderate degenerative disc disease since October 31. Mild canal stenosis at C5-6. No cord signal abnormality. No evidence for discitis or osteomyelitis of the cervical spine. Kei Gu MD Carotid Artery Ultrasound 11/17/16 0000 Signed Impressions: Service Date/Time: Thursday, November 17, 2016 15:05 - CONCLUSION: 1. Calcified plaque seen in the carotid arteries bilaterally, especially around the bifurcations. However, no hemodynamically significant stenosis is identified. Vertebral artery flow antegrade bilaterally. Kei Gu MD Chest X-Ray 11/16/16 1240 Signed Impressions: Service Date/Time: Wednesday, November 16, 2016 12:41 - CONCLUSION: Basilar airspace disease suspected, mild. This is a change from the previous study. Steve Yates MD Lung Scan Nuclear Medicine 11/16/16 0000 Signed Impressions: Service Date/Time: Wednesday, November 16, 2016 16:52 - CONCLUSION: Negative for pulmonary embolism. Kei Gu MD Physical Exam GENERAL: This is a well-nourished, well-developed patient, in no apparent distress. SKIN: No rashes, ecchymoses or lesions. Cool and dry. HEAD: Atraumatic. Normocephalic. No temporal or scalp tenderness. EYES: Pupils equal round and reactive. Extraocular motions intact. No scleral icterus. No injection or drainage. ENT: Nose without bleeding, purulent drainage or septal hematoma. Throat without erythema, tonsillar hypertrophy or exudate. Uvula midline. Airway patent. NECK: Trachea midline. Supple, nontender, no meningeal signs. CARDIOVASCULAR: HS audible. RESPIRATORY: Clear to auscultation. Breath sounds equal bilaterally. No wheezes , rales, or rhonchi. GASTROINTESTINAL: Abdomen soft, non-tender, nondistended. MUSCULOSKELETAL: Extremities without clubbing, cyanosis, or edema. No joint tenderness, effusion, or edema noted. No calf tenderness. Negative Homans sign bilaterally. NEUROLOGICAL: Awake and alert. Grossly non focal Psych: cooperative IV line sites with no e.o infection. 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 CAD h/o code blue this admission. Recs: Continue IV Daptomycin 10 mg/kg IV q 48 hours, 1st dose now. (ASP: Clinical Suspected Vanco failure, Vanco ANGELO 2 on last blood culture) Continue Rifampin. CRP elevated. MRI L-,C-,T-Spine no drainable foci of infection. Discitis as noted in prior sites. No new foci of infection. tristonw RN D/w Pathologist to perform gram stain on Pathology specimen as at this point cultures can be negative due to being partially treated. Follow cultures Follow clinically. Patient known to she will resume care on Friday11/25/16. Jemma Moreno MD Nov 22, 2016 13:19
--- NOTE | 2016-11-22 15:52 | PD.CAR.PN ---
CVT Progress Note Subjective/Hospital Course: 11/16: 71 years old male with ESRD on HD who was brought to ER from dialysis where he suddenly became unresponsive. On scene providers performed CPR for approximately 5 minutes. He underwent defibrillation twice and had a return of spontaneous circulation per ER documentation. The patient states he felt sleepy this morning and believes he may have actually fell asleep during dialysis. He does not recall the actual loss of consciousness. EMS reports that on scene he had a blood pressure 127/80 and a heart rate of 110 sinus tach. Occasional PVCs were observed. FS Glucose was 168. The dialysis session was about 50% complete when he became unresponsive and then was sent to the ER. On evaluation in the ER patient was completely asymptomatic without any chest pain. [facility] and was evaluated by Dr. Craig from cardiology. Patient was initiated on amiodarone drip and subsequently proceeded for VQ scan where he had another episode of V. tach arrest, CODE BLUE cardiac arrest code was activated. Patient was shocked out of the V. tach had about 2.5 minutes of CPR at that time. Subsequently he was transported to [facility] where I evaluated him immediately following his arrival. At that time patient was awake and alert and denied any chest pain or shortness of breath. He says that he passed out and does not recollect any other events. Shortly following patient's arrival to ICU he had a third episode where he became unresponsive and went into V. tach arrest. CPR/ACLS protocol initiated, patient converted spontaneously to sinus rhythm prior to defibrillation and became responsive. He denied any chest pain or shortness of breath following regaining of consciousness. Patient was given amiodarone 300 mg IV bolus following third episode of V. tach along with 2 g of magnesium sulfate IV push as well as 1 g of calcium chloride.. Patient is being treated with antibiotics for L1 osteomyelitis/ epidural abscess with rifampin and IV vancomycin. 11/17:cardiac cath by Dr. Bucio last night. 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 on heparin and NTG gtt following cardiac cath 11/18 Dr Pretty spoke with Dr Novak ID , agree pt is high risk, however with 2 episodes of Vtach arrest / requiring resuscitation / pt is even higher risk without revascularization. Dr Pretty spoke in depth with pt today , he will receive dialysis on / and is now scheduled for CABG on 11/20 will dc IV amiodarone and change to po amiodarone 11/19 remain on heparin gtt, no fevers, receiving dialysis today no ectopy noted sinus julio c, will decrease dose of amiodarone for surgery in am 11/20 surgery: CABG x 5, NUNEZ to LAD, SVG to AM, SVG to LPDA, SVG to OM2, SVG to Diag , EVH, LEONARD crystalloid 1000cc, 1900cc cell saver, 2500cc EBL, one unit plt extubated after surgery 11/21 on Maikol gtt during the night on nasal cannula , received small fluid bolus last pm hold on dialysis today 2/2 labile BP / resume in am / and re-eval later today K + 5.1 aggressive pulm toileting , OOB ambulate leave in ICU today 11/22 Bp still labile, despite giving one unit PRBC with dialysis weaning Maikol gtt slowly, NO BB due to labile and low BP add midodrine to facilitate weaning off Maikol leave chest tubes in , drained 450cc serous bloody drainage Objective: GENERAL: SKIN: Warm and dry. prevena to chest HEAD: Normocephalic. EYES: No scleral icterus. No injection or drainage. NECK: Supple, trachea midline. No JVD or lymphadenopathy. CARDIOVASCULAR: Regular rate and rhythm without murmurs, gallops, or rubs. left forearm AV fistula RESPIRATORY: Breath sounds equal bilaterally. No accessory muscle use. GASTROINTESTINAL: Abdomen soft, non-tender, nondistended. MUSCULOSKELETAL: No cyanosis, or edema. BACK: Nontender without obvious deformity. No CVA tenderness. Vital Signs Date Time Temp Pulse Resp B/P Pulse Ox O2 Delivery O2 Flow Rate FiO2 11/22/16 11:00 98.2 74 16 104/59 99 104/74 11/22/16 11:00 74 11/22/16 11:00 99 Nasal Cannula 2.00 11/22/16 11:00 68 11/22/16 07:49 100 Nasal Cannula 3.00 11/22/16 07:00 97.9 66 16 92/55 98 80/57 11/22/16 07:00 68 11/22/16 07:00 98 Nasal Cannula 2.00 11/22/16 07:00 18 11/22/16 07:00 66 11/22/16 03:00 66 11/22/16 03:00 97.5 67 20 101/65 99 11/22/16 03:00 67 11/22/16 03:00 99 Nasal Cannula 2.00 11/21/16 23:00 99 Nasal Cannula 2.00 11/21/16 23:00 70 11/21/16 23:00 97.4 68 20 95/58 99 11/21/16 23:00 68 11/21/16 22:52 99 Nasal Cannula 3.00 11/21/16 19:00 67 11/21/16 19:00 99 Nasal Cannula 2.00 11/21/16 19:00 60 11/21/16 19:00 97.8 61 20 83/50 99 11/21/16 17:03 98.0 Labs: Laboratory Tests Test 11/22/16 11/22/16 03:50 09:40 White Blood Count 10.2 TH/MM3 (4.0-11.0) Red Blood Count 2.72 MIL/MM3 (4.50-5.90) Hemoglobin 8.4 GM/DL (13.0-17.0) Hematocrit 25.6 % (39.0-51.0) Mean Corpuscular Volume 94.4 FL (80.0-100.0) Mean Corpuscular Hemoglobin 31.0 PG (27.0-34.0) Mean Corpuscular Hemoglobin 32.9 % Concent (32.0-36.0) Red Cell Distribution Width 18.7 % (11.6-17.2) Platelet Count 192 TH/MM3 (150-450) Mean Platelet Volume 7.7 FL (7.0-11.0) Neutrophils (%) (Auto) 69.1 % (16.0-70.0) Lymphocytes (%) (Auto) 11.7 % (9.0-44.0) Monocytes (%) (Auto) 14.6 % (0.0-8.0) Eosinophils (%) (Auto) 3.5 % (0.0-4.0) Basophils (%) (Auto) 1.1 % (0.0-2.0) Neutrophils # (Auto) 7.1 TH/MM3 (1.8-7.7) Lymphocytes # (Auto) 1.2 TH/MM3 (1.0-4.8) Monocytes # (Auto) 1.5 TH/MM3 (0-0.9) Eosinophils # (Auto) 0.4 TH/MM3 (0-0.4) Basophils # (Auto) 0.1 TH/MM3 (0-0.2) CBC Comment DIFF FINAL Differential Comment Sodium Level 134 MEQ/L (136-145) Potassium Level 4.8 MEQ/L (3.5-5.1) Chloride Level 98 MEQ/L (98-107) Carbon Dioxide Level 26.7 MEQ/L (21.0-32.0) Anion Gap 9 MEQ/L (5-15) Blood Urea Nitrogen 43 MG/DL (7-18) Creatinine 9.05 MG/DL (0.60-1.30) Estimat Glomerular Filtration 6 ML/MIN (>89) Rate Random Glucose 130 MG/DL (74-106) Calcium Level 8.8 MG/DL (8.5-10.1) Magnesium Level 3.0 MG/DL (1.5-2.5) Blood Type O POSITIVE Antibody Screen NEGATIVE Crossmatch Leukocyte-Reduced Red Blood Cells Blood Bank Comment Result Diagram: 11/22/1634911/22/16349 Telemetry: NSR (1) Aortic stenosis Plan: [id number]. 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
[2016-11-22] MEDS: CINACALCET HYDROCHLORIDE 30 MG TAB PO SCH (15:56)
[2016-11-22] MEDS: DAPTOMYCIN IV SCH ×2 (15:57→15:59)
[2016-11-22] MEDS: SODIUM CHLORIDE 0.9% IV SCH ×2 (15:57→15:59)
--- NOTE | 2016-11-22 16:22 | HHI.PR ---
Subjective Interval History Alert, oriented, pain well-controlled, no trouble breathing, still on a small dose of Maikol-Synephrine, midodrine started today Review of Systems Constitutional Constitutional Remarks Improving General weakness, well-controlled back pain, intolerance to minimal activity, 10 systems reviewed otherwise negative Vitals/Results Intake & Output 11/21/16 11/21/16 11/22/16 15:00 23:00 07:00 Intake Total 3018 ml 1147 ml Output Total 250 ml 450 ml Balance 2768 ml 697 ml Intake Oral 720 ml 360 ml IV Total 2298 ml 787 ml Output Urine Total 0 ml 0 ml Chest Tube Drainage Total 250 ml 450 ml # Bowel Movements 0 Vital Signs Vital Signs Date Time Temp Pulse Resp B/P Pulse Ox O2 Delivery O2 Flow Rate FiO2 11/22/16 11:00 98.2 74 16 104/59 99 104/74 11/22/16 11:00 74 11/22/16 11:00 99 Nasal Cannula 2.00 11/22/16 11:00 68 11/22/16 07:49 100 Nasal Cannula 3.00 11/22/16 07:00 97.9 66 16 92/55 98 80/57 11/22/16 07:00 68 11/22/16 07:00 98 Nasal Cannula 2.00 11/22/16 07:00 18 11/22/16 07:00 66 11/22/16 03:00 66 11/22/16 03:00 97.5 67 20 101/65 99 11/22/16 03:00 67 11/22/16 03:00 99 Nasal Cannula 2.00 11/21/16 23:00 99 Nasal Cannula 2.00 11/21/16 23:00 70 11/21/16 23:00 97.4 68 20 95/58 99 11/21/16 23:00 68 11/21/16 22:52 99 Nasal Cannula 3.00 11/21/16 19:00 67 11/21/16 19:00 99 Nasal Cannula 2.00 11/21/16 19:00 60 11/21/16 19:00 97.8 61 20 83/50 99 11/21/16 17:03 98.0 CBC/BMP: 11/22/16 0350 11/22/16 0350 Lab Results Laboratory Tests Test 11/22/16 11/22/16 03:50 09:40 White Blood Count 10.2 TH/MM3 Red Blood Count 2.72 MIL/MM3 Hemoglobin 8.4 GM/DL Hematocrit 25.6 % Mean Corpuscular Volume 94.4 FL Mean Corpuscular Hemoglobin 31.0 PG Mean Corpuscular Hemoglobin 32.9 % Concent Red Cell Distribution Width 18.7 % Platelet Count 192 TH/MM3 Mean Platelet Volume 7.7 FL Neutrophils (%) (Auto) 69.1 % Lymphocytes (%) (Auto) 11.7 % Monocytes (%) (Auto) 14.6 % Eosinophils (%) (Auto) 3.5 % Basophils (%) (Auto) 1.1 % Neutrophils # (Auto) 7.1 TH/MM3 Lymphocytes # (Auto) 1.2 TH/MM3 Monocytes # (Auto) 1.5 TH/MM3 Eosinophils # (Auto) 0.4 TH/MM3 Basophils # (Auto) 0.1 TH/MM3 CBC Comment DIFF FINAL Differential Comment Sodium Level 134 MEQ/L Potassium Level 4.8 MEQ/L Chloride Level 98 MEQ/L Carbon Dioxide Level 26.7 MEQ/L Anion Gap 9 MEQ/L Blood Urea Nitrogen 43 MG/DL Creatinine 9.05 MG/DL Estimat Glomerular Filtration 6 ML/MIN Rate Random Glucose 130 MG/DL Calcium Level 8.8 MG/DL Magnesium Level 3.0 MG/DL Blood Type O POSITIVE Antibody Screen NEGATIVE Crossmatch Leukocyte-Reduced Red Blood Cells Blood Bank Comment Physical Exam General General Appearance: Well Developed, Comfortable Eyes Eye Exam: Pupils Equal, Pupils Reactive Ears & Nose Ears & Nose Exam: Nasal Mucosa [place] Throat Throat Exam: Oral Mucosa [place] & Moist Neck Neck Exam: Trachea Midline Pulmonary Resp Exam: Breath Sounds Equal, No Distress Resp Remarks Chest tubes in place Cardiology CV Exam: Irregular, Arrhythmia, Murmur Gastrointestinal/Abdomen GI Exam: Soft, Non-Tender, Bowel Sounds Present, Non-Distended Musculoskeletal MS Exam: Normal Tone Integumentary Skin Exam: Warm, Dry Extremeties Extremities Exam: Pedal Pulses Palpable, Trace Edema Extremeties Remarks AV fistula both upper extremities Neurologic Neuro Exam: Alert, Awake, Oriented, Speech Clear, Moving All Extremities, Rubber Goods Assembler Equal, No Focal Deficits Psychiatric Psych Exam: Appropriate Responses VTE Prophylaxis VTE Prophylaxis Meds: Heparin Assessment/Plan Assessment/Plan Assessment Admitted following Syncope Status post cardiac arrest 3 Non-ST elevation myocardial infarction Status post cardiac catheterization 11/17/16 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 Status post CABG 5 on 11/20/16 Postoperative hypotension on pressors L1 osteomyelitis with back pain, on abx per ID End-stage renal disease Chronic hyperphosphatemia, today's phosphate level is normal History of anemia, diabetes, hypertension Anemia CKD Valvular disease Management Continue pressors to keep mean arterial pressure above 65 Routine post open-heart protocol appreciate consultants input, Nephrology, infectious disease, critical care, cardiology and cardiac surgery following continue abx per ID We will follow peripherally while on ICU Discussed with patient Discussed with nurse Puma Recinos MD Nov 22, 2016 16:22
[2016-11-22] MEDS ORDERED: MIDODRINE 5 MG TAB PO SCH (17:00)
[2016-11-22] MEDS: MIDODRINE 5 MG TAB PO SCH (18:05)
[2016-11-22] MEDS: SENNOSIDES 8.6 MG TAB PO SCH (21:44)
[2016-11-23] VITALS (17 sets, daily range): BP systolic 89–153; BP diastolic 55–73; PULSE 68–84; RESP 18–20; TEMP 98–98.7; O2SAT 96–100
[2016-11-23] MEDS: INSULIN ASPART SUPPLEMENTAL SCALE SQ SCH ×6 (02:00→22:21)
[2016-11-23 05:28] LABS: BICARBONATE 29.2 MEQ/L (21.0-32.0); POTASSIUM 4.4 MEQ/L (3.5-5.1)
[2016-11-23] MEDS: PANTOPRAZOLE SOD 40 MG DELAYED RELEASE TAB PO SCH (06:00)
[2016-11-23] MEDS: MIDODRINE 5 MG TAB PO SCH ×4 (06:10→17:40)
[2016-11-23 06:39] LABS: MEAN CELL VOLUME 93.9 FL (80.0-100.0); MEAN CORPUSCULAR HGB CONC 31.9 % (32.0-36.0); PLATELET COUNT 136 TH/MM3 (150-450); RED BLOOD COUNT 2.56 MIL/MM3 (4.50-5.90); REVIEW FLAG FINAL; WHITE BLOOD COUNT 5.3 TH/MM3 (4.0-11.0)
--- NOTE | 2016-11-23 08:16 | PD.CAR.PN ---
CVT Progress Note Subjective/Hospital Course: 11/16: 71 years old male with ESRD on HD who was brought to ER from dialysis where he suddenly became unresponsive. On scene providers performed CPR for approximately 5 minutes. He underwent defibrillation twice and had a return of spontaneous circulation per ER documentation. The patient states he felt sleepy this morning and believes he may have actually fell asleep during dialysis. He does not recall the actual loss of consciousness. EMS reports that on scene he had a blood pressure 127/80 and a heart rate of 110 sinus tach. Occasional PVCs were observed. FS Glucose was 168. The dialysis session was about 50% complete when he became unresponsive and then was sent to the ER. On evaluation in the ER patient was completely asymptomatic without any chest pain. He was admitted by [facility] and was evaluated by Dr. Craig from cardiology. Patient was initiated on amiodarone drip and subsequently proceeded for VQ scan where he had another episode of V. tach arrest, CODE BLUE cardiac arrest code was activated. Patient was shocked out of the V. tach had about 2.5 minutes of CPR at that time. Subsequently he was transported to [facility] where I evaluated him immediately following his arrival. At that time patient was awake and alert and denied any chest pain or shortness of breath. He says that he passed out and does not recollect any other events. Shortly following patient's arrival to ICU he had a third episode where he became unresponsive and went into V. tach arrest. CPR/ACLS protocol initiated, patient converted spontaneously to sinus rhythm prior to defibrillation and became responsive. He denied any chest pain or shortness of breath following regaining of consciousness. Patient was given amiodarone 300 mg IV bolus following third episode of V. tach along with 2 g of magnesium sulfate IV push as well as 1 g of calcium chloride.. Patient is being treated with antibiotics for L1 osteomyelitis/ epidural abscess with rifampin and IV vancomycin. 11/17:cardiac cath by Dr. Bucio last night. 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 on heparin and NTG gtt following cardiac cath 11/18 Dr Pretty spoke with Dr Novak ID , agree pt is high risk, however with 2 episodes of Vtach arrest / requiring resuscitation / pt is even higher risk without revascularization. Dr Pretty spoke in depth with pt today , he will receive dialysis on / and is now scheduled for CABG on 11/20 will dc IV amiodarone and change to po amiodarone 11/19 remain on heparin gtt, no fevers, receiving dialysis today no ectopy noted sinus julio c, will decrease dose of amiodarone for surgery in am 11/20 surgery: CABG x 5, NUNEZ to LAD, SVG to AM, SVG to LPDA, SVG to OM2, SVG to Diag , EVH, LEONARD crystalloid 1000cc, 1900cc cell saver, 2500cc EBL, one unit plt extubated after surgery 11/21 on Maikol gtt during the night on nasal cannula , received small fluid bolus last pm hold on dialysis today 06/20 labile BP / resume in am / and re-eval later today K + 5.1 aggressive pulm toileting , OOB ambulate leave in ICU today 11/22 Bp still labile, despite giving one unit PRBC with dialysis weaning Maikol gtt slowly, NO BB due to labile and low BP add midodrine to facilitate weaning off Maikol leave chest tubes in , drained 450cc serous bloody drainage 11/23 Doing better Off of Maikol Maintain CT Ambulate Transfer CIC Objective: Vital Signs Date Time Temp Pulse Resp B/P Pulse Ox O2 Delivery O2 Flow Rate FiO2 11/23/16 07:00 71 11/23/16 07:00 71 11/23/16 07:00 98.3 71 20 114/64 99 Arterial Line 11/23/16 07:00 100 Nasal Cannula 3.00 11/23/16 03:00 98.0 83 18 102/73 100 11/23/16 03:00 99 Nasal Cannula 2.00 11/23/16 03:00 84 11/23/16 03:00 84 11/22/16 23:00 99 Nasal Cannula 2.00 11/22/16 23:00 86 11/22/16 23:00 97.9 86 20 130/60 100 11/22/16 23:00 87 11/22/16 20:39 99 Nasal Cannula 3.00 11/22/16 19:00 84 11/22/16 19:00 100 Nasal Cannula 2.00 11/22/16 19:00 98.0 69 20 111/69 100 11/22/16 19:00 84 11/22/16 15:00 98.0 72 16 103/60 96 93/53 11/22/16 15:00 72 11/22/16 15:00 96 Nasal Cannula 2.00 11/22/16 15:00 72 11/22/16 11:00 98.2 74 16 104/59 99 104/74 11/22/16 11:00 74 11/22/16 11:00 99 Nasal Cannula 2.00 11/22/16 11:00 68 Labs: Laboratory Tests Test 11/23/16 04:00 White Blood Count 5.3 TH/MM3 (4.0-11.0) Red Blood Count 2.56 MIL/MM3 (4.50-5.90) Hemoglobin 7.7 GM/DL (13.0-17.0) Hematocrit 24.0 % (39.0-51.0) Mean Corpuscular Volume 93.9 FL (80.0-100.0) Mean Corpuscular Hemoglobin 30.0 PG (27.0-34.0) Mean Corpuscular Hemoglobin 31.9 % Concent (32.0-36.0) Red Cell Distribution Width 18.0 % (11.6-17.2) Platelet Count 136 TH/MM3 (150-450) Mean Platelet Volume 7.7 FL (7.0-11.0) Sodium Level 136 MEQ/L (136-145) Potassium Level 4.4 MEQ/L (3.5-5.1) Chloride Level 97 MEQ/L (98-107) Carbon Dioxide Level 29.2 MEQ/L (21.0-32.0) Anion Gap 10 MEQ/L (5-15) Blood Urea Nitrogen 30 MG/DL (7-18) Creatinine 7.38 MG/DL (0.60-1.30) Estimat Glomerular Filtration 7 ML/MIN (>89) Rate Random Glucose 112 MG/DL (74-106) Calcium Level 8.8 MG/DL (8.5-10.1) Result Diagram: 11/23/1639911/23/160 (1) Aortic stenosis Plan: [id number]. 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
[2016-11-23] MEDS ORDERED: DEXTROSE 50% IN WATER 50 ML VIAL(D50) IV PRN (08:30)
[2016-11-23] MEDS ORDERED: GLUCAGON 1 MG/ML VIAL OTHER PRN (08:30)
[2016-11-23] MEDS: RESP: ALBUTEROL 2.5 MG/IPRATROPIUM 0.5 MG NEB (SCH) NEB ×3 (09:31→18:58)
--- NOTE | 2016-11-23 10:09 | HHI.NPPN ---
Subjective History of Present Illness he had CV surgery Additional Remarks Patient was seen and examined. Sitting on a chair. Off pressor. He is comfortable except for some post operative pain. Review of Systems General Constitutional: Fatigue Cardiovascular Cardiac: Chest Pain Objective Data Data 11/22/16 11/23/16 19:00 07:00 Intake Total 1380 ml 218 ml Output Total 1790 ml 230 ml Balance -410 ml -12 ml Intake Oral 480 ml 120 ml IV Total 550 ml 98 ml Packed Cells 350 ml Output Urine Total 0 ml Chest Tube Drainage Total 290 ml 230 ml Hemodialysis 1500 ml # Bowel Movements 0 Vital Signs Date Time Temp Pulse Resp B/P Pulse Ox O2 Delivery O2 Flow Rate FiO2 11/23/16 09:26 96 21 11/23/16 07:00 71 11/23/16 07:00 71 11/23/16 07:00 98.3 71 20 114/64 99 Arterial Line 11/23/16 07:00 100 Nasal Cannula 3.00 11/23/16 03:00 98.0 83 18 102/73 100 11/23/16 03:00 99 Nasal Cannula 2.00 11/23/16 03:00 84 11/23/16 03:00 84 11/22/16 23:00 99 Nasal Cannula 2.00 11/22/16 23:00 86 11/22/16 23:00 97.9 86 20 130/60 100 11/22/16 23:00 87 11/22/16 20:39 99 Nasal Cannula 3.00 11/22/16 19:00 84 11/22/16 19:00 100 Nasal Cannula 2.00 11/22/16 19:00 98.0 69 20 111/69 100 11/22/16 19:00 84 11/22/16 15:00 98.0 72 16 103/60 96 93/53 11/22/16 15:00 72 11/22/16 15:00 96 Nasal Cannula 2.00 11/22/16 15:00 72 11/22/16 11:00 98.2 74 16 104/59 99 104/74 11/22/16 11:00 74 11/22/16 11:00 99 Nasal Cannula 2.00 11/22/16 11:00 68 -: 11/23/16 0400 11/23/16 0400 Physical Exam General Appearance: Well Developed, Comfortable Eyes Eye Exam: Pupils Equal, Pupils Reactive Ears & Nose Ears & Nose Exam: Nasal Mucosa [place] Throat Throat Exam: Oral Mucosa [place] & Moist Neck Neck Exam: Trachea Midline Pulmonary Resp Exam: Breath Sounds Equal, No Distress Cardiology CV Exam: Irregular, Arrhythmia, Murmur Gastrointestinal/Abdomen GI Exam: Soft, Non-Tender, Bowel Sounds Present, Non-Distended Musculoskeletal MS Exam: Normal Tone Integumentary Skin Exam: Warm, Dry Extremeties Extremities Exam: No Edema, Pedal Pulses Palpable Neurologic Neuro Exam: Alert, Awake, Oriented, Speech Clear, Moving All Extremities, Machine Chocolate Molder Equal, No Focal Deficits Psychiatric Psych Exam: Appropriate Responses Assessment/Plan Problem List: (1) ESRD (end stage renal disease) on dialysis Plan: continue dialysis MWF. Continue to monitor fluid and electrolyte status. (2) 3-vessel coronary artery disease Plan: s/p CABG mycotic aneurysm repaired (3) Anemia Plan: Epogen with dialysis. Monitor. Nando Ledezma MD Nov 23, 2016 10:09
[2016-11-23] MEDS: MULTIVITAMINS/MINERALS THERAPEUTIC TAB PO SCH (10:15)
[2016-11-23] MEDS: VITAMIN B CMPLX/VITC/FOLIC AC CAP PO SCH (10:15)
[2016-11-23] MEDS: MAGNESIUM HYDROXIDE SUSP 30 ML CUP PO SCH (10:15)
[2016-11-23] MEDS: POLYETHYLENE GLYCOL 17 GM PKG PO SCH (10:15)
[2016-11-23] MEDS: CALCITRIOL 0.25 MCG CAP PO SCH (10:16)
[2016-11-23] MEDS: AMIODARONE 200 MG TAB PO SCH ×2 (10:16→21:49)
[2016-11-23] MEDS: DOCUSATE SODIUM 100 MG CAP PO SCH ×2 (10:17→21:49)
[2016-11-23] MEDS: ASPIRIN 81 MG CHEW TAB PO SCH (10:17)
[2016-11-23] MEDS: RIFAMPIN 150 MG CAP PO SCH ×2 (10:18→21:49)
[2016-11-23] MEDS: SODIUM CHLORIDE 0.9% FLUSH 10 ML FLUSH IV FLUSH SCH ×2 (10:20→22:21)
--- NOTE | 2016-11-23 15:58 | HHI.PR ---
Subjective Subjective Remarks Up in chair Awake alert talkative Family in room Denies any acute pain or distress Decreased appetite (Natasha Dumont) Review of Systems Constitutional Constitutional: Fatigue, Weakness Constitutional Remarks 10 point ROS done positives noted (Natasha Dumont) Pulmonary Respiratory: Coughing (encouraged to cough and deep breathe) (Natasha Dumont) Chest/Breast Chest/Breast: Tenderness Chest/Breast Remarks Recent CABG, midline chest dressing clean dry and intact (Natasha Dumont) GI/Abdomen GI/Abdominal Exam: Constipation (3-4 days, bowel regimen and discussed with patient) (Natasha Dumont) Musculoskeletal MS: Weakness (Natasha Dumont) Psychiatric Psychiatric: Normal Mood (Natasha Dumont) Vitals/Results Intake & Output 11/22/16 11/22/16 11/23/16 15:00 23:00 07:00 Intake Total 1380 ml 218 ml Output Total 1500 ml 290 ml 230 ml Balance -1500 ml 1090 ml -12 ml Intake Oral 480 ml 120 ml IV Total 550 ml 98 ml Packed Cells 350 ml Output Urine Total 0 ml Chest Tube Drainage Total 290 ml 230 ml Hemodialysis 1500 ml # Bowel Movements 0 Vital Signs Vital Signs Date Time Temp Pulse Resp B/P Pulse Ox O2 Delivery O2 Flow Rate FiO2 11/23/16 15:40 97 Room Air 11/23/16 15:39 68 11/23/16 15:00 76 11/23/16 11:00 68 11/23/16 11:00 98.1 68 20 153/63 99 11/23/16 11:00 98 Room Air 11/23/16 11:00 68 11/23/16 09:26 96 21 11/23/16 07:00 71 11/23/16 07:00 71 11/23/16 07:00 98.3 71 20 114/64 99 Arterial Line 11/23/16 07:00 100 Nasal Cannula 3.00 11/23/16 03:00 98.0 83 18 102/73 100 11/23/16 03:00 99 Nasal Cannula 2.00 11/23/16 03:00 84 11/23/16 03:00 84 11/22/16 23:00 99 Nasal Cannula 2.00 11/22/16 23:00 86 11/22/16 23:00 97.9 86 20 130/60 100 11/22/16 23:00 87 11/22/16 20:39 99 Nasal Cannula 3.00 11/22/16 19:00 84 11/22/16 19:00 100 Nasal Cannula 2.00 11/22/16 19:00 98.0 69 20 111/69 100 11/22/16 19:00 84 (Natasha Dumont) CBC/BMP: 11/23/16 0400 11/23/16 0400 Lab Results Laboratory Tests Test 11/23/16 04:00 White Blood Count 5.3 TH/MM3 Red Blood Count 2.56 MIL/MM3 Hemoglobin 7.7 GM/DL Hematocrit 24.0 % Mean Corpuscular Volume 93.9 FL Mean Corpuscular Hemoglobin 30.0 PG Mean Corpuscular Hemoglobin 31.9 % Concent Red Cell Distribution Width 18.0 % Platelet Count 136 TH/MM3 Mean Platelet Volume 7.7 FL Sodium Level 136 MEQ/L Potassium Level 4.4 MEQ/L Chloride Level 97 MEQ/L Carbon Dioxide Level 29.2 MEQ/L Anion Gap 10 MEQ/L Blood Urea Nitrogen 30 MG/DL Creatinine 7.38 MG/DL Estimat Glomerular Filtration 7 ML/MIN Rate Random Glucose 112 MG/DL Calcium Level 8.8 MG/DL Current Medications Administered Medications Medications (Trade) Dose Ordered Sig/Zenobia Route PRN Reason Start Time Stop Time Status Last Admin Dose Admin Calcitriol (Rocaltrol) 0.5 mcg DAILY PO 11/17/16 09:00 11/23/16 10:16 Rifampin (Rifampin) 300 mg Q12HR PO 11/16/16 21:00 11/23/16 10:18 Vitamin B Complex/ Vit C/Folic Acid (Nephrocaps) 1 cap DAILY PO 11/17/16 09:00 11/23/16 10:15 Cinacalcet (Sensipar) 60 mg DAILY@16 PO 11/17/16 16:00 11/22/16 15:56 Sodium Chloride (NS Flush) 2 ml BID IV FLUSH 11/17/16 21:00 11/23/16 10:20 Oxycodone/ Acetaminophen 1 tab 1 tab Q4H PRN PO PAIN 1-5 11/18/16 06:15 11/22/16 05:41 Daptomycin/Sodium Chloride (Cubicin Inj/NS Inj) 100 ml @ 200 mls/hr Q48H IV 11/18/16 15:00 11/22/16 15:59 Amiodarone HCl 200 mg 200 mg Q12HR PO 11/19/16 21:00 11/23/16 10:16 Phenylephrine HCl/ Dextrose (Neosynephrine Inj/D5W 500 ml Inj) 500 ml @ 0 mls/hr TITRATE IV 11/20/16 18:15 11/22/16 11:06 Albumin Human (Albumin 5% Inj) 12.5 gm UNSCH PRN IV SEE LABEL COMMENTS 11/20/16 18:15 11/20/16 22:46 Aspirin (Aspirin Chew) 81 mg DAILY PO 11/21/16 09:00 11/23/16 10:17 Pantoprazole Sodium (Protonix) 40 mg DAILY@06 PO 11/21/16 06:00 11/23/16 06:00 Docusate Sodium (Colace) 100 mg BID PO 11/21/16 21:00 11/23/16 10:17 Multivitamins/ Minerals Therapeutic (Theragran M Tab) 1 tab DAILY PO 11/22/16 09:00 11/23/16 10:15 Magnesium Hydroxide (Milk Of Magnesia Liq) 30 ml DAILY PO 11/21/16 13:00 11/23/16 10:15 Polyethylene Glycol (Miralax) 17 gm DAILY PO 11/22/16 09:00 11/23/16 10:15 Sennosides (Senokot) 8.6 mg HS PO 11/21/16 21:00 11/22/16 21:44 Insulin Aspart (NovoLOG SUPPLEMENTAL SCALE) 1 02,06,10,14,18,22 SQ 11/21/16 14:00 11/23/16 11:23 Midodrine (Proamatine) 2.5 mg TID@07,12,17 PO 11/22/16 17:00 11/23/16 11:21 (Natasha Dumont) Physical Exam General General Appearance: Well Developed, Comfortable (Ntaasha Dumont) Eyes Eye Exam: Pupils Equal, Pupils Reactive (Natasha Dumont) Ears & Nose Ears & Nose Exam: Nasal Mucosa [place] (HoustonNatasha M. BOBBIN CLEANER) Throat Throat Exam: Oral Mucosa [place] & Moist (JuliaNatasha M. BOBBIN CLEANER) Neck Neck Exam: Trachea Midline ([place]Natasha M. BOBBIN CLEANER) Pulmonary Resp Exam: Breath Sounds Equal, No Distress ([place]Natasha M. BOBBIN CLEANER) Cardiology CV Exam: Irregular, Arrhythmia, Murmur (JuliaNatasha M. BOBBIN CLEANER) Gastrointestinal/Abdomen GI Exam: Soft, Non-Tender, Bowel Sounds Present, Non-Distended ([place]Natasha M. BOBBIN CLEANER) Musculoskeletal MS Exam: Normal Tone ([place]Natasha M. BOBBIN CLEANER) Integumentary Skin Exam: Warm, Dry ([place]Natasha M. BOBBIN CLEANER) Extremeties Extremities Exam: No Edema, Pedal Pulses Palpable (HoustonNatasha M. BOBBIN CLEANER) Neurologic Neuro Exam: Alert, Awake, Oriented, Speech Clear, Moving All Extremities, Flight Line Mechanic Equal, No Focal Deficits ([place]Natasha M. BOBBIN CLEANER) Psychiatric Psych Exam: Appropriate Responses ([place],Natasha M. BOBBIN CLEANER) VTE Prophylaxis VTE Prophylaxis Meds: Heparin (JuliaNatasha M. BOBBIN CLEANER) Assessment/Plan Assessment/Plan Vital signs reviewed, normal trends for now, afebrile Labs reviewed, anemia, noted 7.7, patient has end-stage renal disease and is monitored per nephrology. Currently asymptomatic sitting up in chair Hypokalemia resolved currently 4.2 Leukocytosis normalized at 8.5 today Syncope Status post cardiac arrest 3 on admission in the first 12 hours. 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 up in chair, continue to increase activity and monitor symptoms of pain, SOB, vertigo, dysrhythmias. Continue and appreciate cardiology input as well as cardiothoracic surgeon, post op care per their expert opinion L1 osteomyelitis with back pain, on abx per ID , probable 10-12 weeks per patient. Will recieve during HD. End-stage renal disease, followed per nephrology currently patient is receiving hemodialysis Friday while in the hospital Chronic hyperphosphatemia, today's phosphate level is normal, appreciate their input monitoring History of anemia, medical management and monitor CBC as well as symptoms diabetes, Accu-Cheks before meals and at bedtime with sliding scale hypertension, normal trends for now monitor with medical management Bowel regimen, no BM in 3-4 days but patient feels the urge, meds available and discussed with him in detail Discussed with patient and family Discussed with nurse Discussed with Dr. Recinso, seen on his behalf (Natasha Dumont) Assessment/Plan seen, examined by myself, Dr Recinos, today 11/23/16 Discussed with patient Possible need for transfusion Discussed with mid level provider The exam, history, and the medical decision-making described in the above note were completed with the assistance of the mid-level provider. I reviewed the findings presented. I attest that I had a [id number] encounter with the patient on the same day, and personally performed and documented my assessment and findings in the medical record. (Puma Recinos MD) Natasha Dumont Nov 23, 2016 15:58 Puma Recinos MD Nov 23, 2016 17:24
[2016-11-23] MEDS: CINACALCET HYDROCHLORIDE 30 MG TAB PO SCH (17:41)
[2016-11-23] MEDS: SENNOSIDES 8.6 MG TAB PO SCH (21:49)
[2016-11-24] VITALS (30 sets, daily range): BP systolic 96–119; BP diastolic 55–73; PULSE 4–84; RESP 18–20; TEMP 97.8–98.2; O2SAT 96–99
[2016-11-24] MEDS: INSULIN ASPART SUPPLEMENTAL SCALE SQ SCH ×2 (02:30→06:23)
[2016-11-24 05:27] LABS: BICARBONATE 29.1 MEQ/L (21.0-32.0); MAGNESIUM 3.1 MG/DL (1.5-2.5); POTASSIUM 4.3 MEQ/L (3.5-5.1)
[2016-11-24 05:39] LABS: AUTOMATED NEUTROPHIL # 4.6 TH/MM3 (1.8-7.7); BASOPHIL # 0.1 TH/MM3 (0-0.2); BASOPHIL % 0.8 % (0.0-2.0); EOSINOPHIL # 0.2 TH/MM3 (0-0.4); EOSINOPHIL % 2.8 % (0.0-4.0); HEMATOCRIT 25.2 % (39.0-51.0); HEMO FLAGS DIFF FINAL; LYMPH % 12.9 % (9.0-44.0); LYMPHOCYTE # 0.8 TH/MM3 (1.0-4.8); MEAN CELL VOLUME 94.6 FL (80.0-100.0); MEAN CORPUSCULAR HEMOGLOBIN 31.6 PG (27.0-34.0); MEAN CORPUSCULAR HGB CONC 33.4 % (32.0-36.0); MONO % 11.4 % (0.0-8.0); NEUT % 72.1 % (16.0-70.0); PLATELET COUNT 175 TH/MM3 (150-450); RED BLOOD COUNT 2.66 MIL/MM3 (4.50-5.90); RED CELL DISTRIBUTION WIDTH 18.3 % (11.6-17.2); WHITE BLOOD COUNT 6.4 TH/MM3 (4.0-11.0)
[2016-11-24] MEDS: PANTOPRAZOLE SOD 40 MG DELAYED RELEASE TAB PO SCH (06:20)
[2016-11-24] MEDS: MIDODRINE 5 MG TAB PO SCH ×3 (06:20→16:27)
--- NOTE | 2016-11-24 08:54 | PD.CAR.PN ---
CVT Progress Note Subjective/Hospital Course: 11/16: 71 years old male with ESRD on HD who was brought to ER from dialysis where he suddenly became unresponsive. On scene providers performed CPR for approximately 5 minutes. He underwent defibrillation twice and had a return of spontaneous circulation per ER documentation. The patient states he felt sleepy this morning and believes he may have actually fell asleep during dialysis. He does not recall the actual loss of consciousness. EMS reports that on scene he had a blood pressure 127/80 and a heart rate of 110 sinus tach. Occasional PVCs were observed. FS Glucose was 168. The dialysis session was about 50% complete when he became unresponsive and then was sent to the ER. On evaluation in the ER patient was completely asymptomatic without any chest pain. [facility] and was evaluated by Dr. Craig from cardiology. Patient was initiated on amiodarone drip and subsequently proceeded for VQ scan where he had another episode of V. tach arrest, CODE BLUE cardiac arrest code was activated. Patient was shocked out of the V. tach had about 2.5 minutes of CPR at that time. Subsequently he was transported to [facility] where I evaluated him immediately following his arrival. At that time patient was awake and alert and denied any chest pain or shortness of breath. He says that he passed out and does not recollect any other events. Shortly following patient's arrival to ICU he had a third episode where he became unresponsive and went into V. tach arrest. CPR/ACLS protocol initiated, patient converted spontaneously to sinus rhythm prior to defibrillation and became responsive. He denied any chest pain or shortness of breath following regaining of consciousness. Patient was given amiodarone 300 mg IV bolus following third episode of V. tach along with 2 g of magnesium sulfate IV push as well as 1 g of calcium chloride.. Patient is being treated with antibiotics for L1 osteomyelitis/ epidural abscess with rifampin and IV vancomycin. 11/17:cardiac cath by Dr. Bucio last night. 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 on heparin and NTG gtt following cardiac cath 11/18 Dr Pretty spoke with Dr Novak ID , agree pt is high risk, however with 2 episodes of Vtach arrest / requiring resuscitation / pt is even higher risk without revascularization. Dr Pretty spoke in depth with pt today , he will receive dialysis on / and is now scheduled for CABG on 11/20 will dc IV amiodarone and change to po amiodarone 11/19 remain on heparin gtt, no fevers, receiving dialysis today no ectopy noted sinus julio c, will decrease dose of amiodarone for surgery in am 11/20 surgery: CABG x 5, NUNEZ to LAD, SVG to AM, SVG to LPDA, SVG to OM2, SVG to Diag , EVH, LEONARD crystalloid 1000cc, 1900cc cell saver, 2500cc EBL, one unit plt extubated after surgery 11/21 on Maikol gtt during the night on nasal cannula , received small fluid bolus last pm hold on dialysis today 2/2 labile BP / resume in am / and re-eval later today K + 5.1 aggressive pulm toileting , OOB ambulate leave in ICU today 11/22 Bp still labile, despite giving one unit PRBC with dialysis weaning Maikol gtt slowly, NO BB due to labile and low BP add midodrine to facilitate weaning off Maikol leave chest tubes in , drained 450cc serous bloody drainage 11/23 Doing better Off of Maikol Maintain CT Ambulate Transfer [facility] 11/[address] continue to drain Received PRBC yesterday Monitor CBC Objective: Vital Signs Date Time Temp Pulse Resp B/P Pulse Ox O2 Delivery O2 Flow Rate FiO2 11/24/16 08:00 81 11/24/16 08:00 98.0 84 18 112/60 96 11/24/16 07:49 95 Room Air 11/24/16 07:00 75 11/24/16 06:00 74 11/24/16 05:00 76 11/24/16 04:00 78 11/24/16 03:15 97 Room Air 11/24/16 03:00 97.8 84 18 100/59 96 11/24/16 03:00 75 11/24/16 02:00 73 11/24/16 01:00 76 11/24/16 00:00 78 11/23/16 23:40 97 Room Air 11/23/16 23:40 98.2 68 20 89/55 99 11/23/16 23:11 72 11/23/16 22:00 78 11/23/16 21:00 78 11/23/16 20:00 76 11/23/16 19:42 79 11/23/16 19:40 98.7 74 20 109/65 99 11/23/16 19:40 97 Room Air 11/23/16 18:58 99 21 11/23/16 18:00 78 11/23/16 17:29 98/62 11/23/16 17:00 75 11/23/16 16:00 98.2 68 20 138/62 99 11/23/16 16:00 78 11/23/16 15:40 97 Room Air 11/23/16 15:39 68 11/23/16 15:00 76 11/23/16 11:00 68 11/23/16 11:00 98.1 68 20 153/63 99 11/23/16 11:00 98 Room Air 11/23/16 11:00 68 11/23/16 09:26 96 21 Labs: Laboratory Tests Test 11/24/16 04:42 White Blood Count 6.4 TH/MM3 (4.0-11.0) Red Blood Count 2.66 MIL/MM3 (4.50-5.90) Hemoglobin 8.4 GM/DL (13.0-17.0) Hematocrit 25.2 % (39.0-51.0) Mean Corpuscular Volume 94.6 FL (80.0-100.0) Mean Corpuscular Hemoglobin 31.6 PG (27.0-34.0) Mean Corpuscular Hemoglobin 33.4 % Concent (32.0-36.0) Red Cell Distribution Width 18.3 % (11.6-17.2) Platelet Count 175 TH/MM3 (150-450) Mean Platelet Volume 7.7 FL (7.0-11.0) Neutrophils (%) (Auto) 72.1 % (16.0-70.0) Lymphocytes (%) (Auto) 12.9 % (9.0-44.0) Monocytes (%) (Auto) 11.4 % (0.0-8.0) Eosinophils (%) (Auto) 2.8 % (0.0-4.0) Basophils (%) (Auto) 0.8 % (0.0-2.0) Neutrophils # (Auto) 4.6 TH/MM3 (1.8-7.7) Lymphocytes # (Auto) 0.8 TH/MM3 (1.0-4.8) Monocytes # (Auto) 0.7 TH/MM3 (0-0.9) Eosinophils # (Auto) 0.2 TH/MM3 (0-0.4) Basophils # (Auto) 0.1 TH/MM3 (0-0.2) CBC Comment DIFF FINAL Differential Comment Sodium Level 134 MEQ/L (136-145) Potassium Level 4.3 MEQ/L (3.5-5.1) Chloride Level 98 MEQ/L (98-107) Carbon Dioxide Level 29.1 MEQ/L (21.0-32.0) Anion Gap 7 MEQ/L (5-15) Blood Urea Nitrogen 38 MG/DL (7-18) Creatinine 8.79 MG/DL (0.60-1.30) Estimat Glomerular Filtration 6 ML/MIN (>89) Rate Random Glucose 72 MG/DL (74-106) Calcium Level 9.5 MG/DL (8.5-10.1) Magnesium Level 3.1 MG/DL (1.5-2.5) Result Diagram: 11/24/1644111/24/16441 (1) Aortic stenosis Plan: [id number]. (2) Ventricular fibrillation Plan: on amiodarone No BB , pt BP labile , too low start midodrine (3) 3-vessel coronary artery disease (4) Coronary aneurysm Plan: Suspected mycotic (5) Cardiopulmonary arrest with successful resuscitation Plan: s/p (6) Elevated troponin I level (7) Non-STEMI (non-ST elevated myocardial infarction) Plan: prob secondary to diagonal occlusion (8) First degree AV block (9) S/P CABG x 5 Plan: on ASA, statin , No BB ( labile BP) pulm toileting nebs ezpap , acapellla OOB ambulate (10) ESRD (end stage renal disease) on dialysis Plan: hold dialysis today / resume in am Problem Qualifiers (1) Aortic stenosis: Qualified Code: I35.0 - Aortic valve stenosis, unspecified etiology Huyen Villatoro MD Nov 24, 2016 08:54
[2016-11-24] MEDS: SODIUM CHLORIDE 0.9% FLUSH 10 ML FLUSH IV FLUSH SCH ×2 (09:00→21:00)
[2016-11-24] MEDS ORDERED: TEMAZEPAM 15 MG CAP PO PRN (09:30)
[2016-11-24] MEDS: RESP: ALBUTEROL 2.5 MG/IPRATROPIUM 0.5 MG NEB (SCH) NEB ×3 (09:43→18:55)
--- NOTE | 2016-11-24 09:46 | HHI.NPPN ---
Subjective History of Present Illness he had CV surgery Additional Remarks Transferred out of ICU. Clinically stable. Review of Systems General Constitutional: Fatigue Cardiovascular Cardiac: Chest Pain Objective Data Data 11/23/16 11/24/16 19:00 07:00 Intake Total 1140 ml 240 ml Output Total 320 ml 280 ml Balance 820 ml -40 ml Intake Oral 1130 ml 240 ml IV Total 10 ml Output Urine Total 0 ml 0 ml Chest Tube Drainage Total 320 ml 280 ml # Bowel Movements 0 Vital Signs Date Time Temp Pulse Resp B/P Pulse Ox O2 Delivery O2 Flow Rate FiO2 11/24/16 08:00 81 11/24/16 08:00 98.0 84 18 112/60 96 11/24/16 07:49 95 Room Air 11/24/16 07:00 75 11/24/16 06:00 74 11/24/16 05:00 76 11/24/16 04:00 78 11/24/16 03:15 97 Room Air 11/24/16 03:00 97.8 84 18 100/59 96 11/24/16 03:00 75 11/24/16 02:00 73 11/24/16 01:00 76 11/24/16 00:00 78 11/23/16 23:40 97 Room Air 11/23/16 23:40 98.2 68 20 89/55 99 11/23/16 23:11 72 11/23/16 22:00 78 11/23/16 21:00 78 11/23/16 20:00 76 11/23/16 19:42 79 11/23/16 19:40 98.7 74 20 109/65 99 11/23/16 19:40 97 Room Air 11/23/16 18:58 99 21 11/23/16 18:00 78 11/23/16 17:29 98/62 11/23/16 17:00 75 11/23/16 16:00 98.2 68 20 138/62 99 11/23/16 16:00 78 11/23/16 15:40 97 Room Air 11/23/16 15:39 68 11/23/16 15:00 76 11/23/16 11:00 68 11/23/16 11:00 98.1 68 20 153/63 99 11/23/16 11:00 98 Room Air 11/23/16 11:00 68 -: 11/24/16 0442 11/24/16 0442 Physical Exam General Appearance: Well Developed, Comfortable Eyes Eye Exam: Pupils Equal, Pupils Reactive Ears & Nose Ears & Nose Exam: Nasal Mucosa [place] Throat Throat Exam: Oral Mucosa [place] & Moist Neck Neck Exam: Trachea Midline Pulmonary Resp Exam: Breath Sounds Equal, No Distress Cardiology CV Exam: Irregular, Arrhythmia, Murmur Gastrointestinal/Abdomen GI Exam: Soft, Non-Tender, Bowel Sounds Present, Non-Distended Musculoskeletal MS Exam: Normal Tone Integumentary Skin Exam: Warm, Dry Extremeties Extremities Exam: No Edema, Pedal Pulses Palpable Neurologic Neuro Exam: Alert, Awake, Oriented, Speech Clear, Moving All Extremities, Ssrs Report Developer Equal, No Focal Deficits Psychiatric Psych Exam: Appropriate Responses Assessment/Plan Problem List: (1) ESRD (end stage renal disease) on dialysis Plan: continue dialysis MWF. Continue to monitor fluid and electrolyte status. (2) 3-vessel coronary artery disease Plan: s/p CABG mycotic aneurysm repaired (3) Anemia Plan: Epogen with dialysis. Monitor. Nando Ledezma MD Nov 24, 2016 09:46
[2016-11-24] MEDS: POLYETHYLENE GLYCOL 17 GM PKG PO SCH (09:51)
[2016-11-24] MEDS: MAGNESIUM HYDROXIDE SUSP 30 ML CUP PO SCH (09:51)
[2016-11-24] MEDS: CALCITRIOL 0.25 MCG CAP PO SCH (09:53)
[2016-11-24] MEDS: VITAMIN B CMPLX/VITC/FOLIC AC CAP PO SCH (09:53)
[2016-11-24] MEDS: ASPIRIN 81 MG CHEW TAB PO SCH (09:54)
[2016-11-24] MEDS: DOCUSATE SODIUM 100 MG CAP PO SCH ×2 (09:54→21:00)
[2016-11-24] MEDS: RIFAMPIN 150 MG CAP PO SCH ×2 (09:54→21:00)
[2016-11-24] MEDS: MULTIVITAMINS/MINERALS THERAPEUTIC TAB PO SCH (09:55)
[2016-11-24] MEDS: AMIODARONE 200 MG TAB PO SCH ×2 (09:55→21:00)
[2016-11-24] MEDS ORDERED: MAGNESIUM CITRATE SOLN 300 ML BTL PO ONE (12:30)
--- NOTE | 2016-11-24 12:37 | HHI.PR ---
Subjective Subjective Remarks Up in chair Awake, oriented, feels better constipation continues Right Chest tube still draining clear fluid Review of Systems Constitutional Constitutional: Fatigue (improved), Weakness Constitutional Remarks 10 point ROS done positives noted Pulmonary Respiratory: Coughing (occasional improved) Chest/Breast Chest/Breast: Tenderness GI/Abdomen GI/Abdominal Exam: Constipation (3-4 days, bowel regimen and discussed with patient) Musculoskeletal MS: Weakness Psychiatric Psychiatric: Normal Mood Vitals/Results Intake & Output 11/23/16 11/23/16 11/24/16 15:00 23:00 07:00 Intake Total 660 ml 480 ml 240 ml Output Total 270 ml 50 ml 280 ml Balance 390 ml 430 ml -40 ml Intake Oral 650 ml 480 ml 240 ml IV Total 10 ml Output Urine Total 0 ml 0 ml 0 ml Chest Tube Drainage Total 270 ml 50 ml 280 ml # Bowel Movements 0 0 Vital Signs Vital Signs Date Time Temp Pulse Resp B/P Pulse Ox O2 Delivery O2 Flow Rate FiO2 11/24/16 11:52 98.2 84 18 119/73 96 11/24/16 11:27 95 Room Air 11/24/16 11:00 73 11/24/16 10:00 79 11/24/16 09:00 78 11/24/16 08:00 81 11/24/16 08:00 98.0 84 18 112/60 96 11/24/16 07:49 95 Room Air 11/24/16 07:00 75 11/24/16 06:00 74 11/24/16 05:00 76 11/24/16 04:00 78 11/24/16 03:15 97 Room Air 11/24/16 03:00 97.8 84 18 100/59 96 11/24/16 03:00 75 11/24/16 02:00 73 11/24/16 01:00 76 11/24/16 00:00 78 11/23/16 23:40 97 Room Air 11/23/16 23:40 98.2 68 20 89/55 99 11/23/16 23:11 72 11/23/16 22:00 78 11/23/16 21:00 78 11/23/16 20:00 76 11/23/16 19:42 79 11/23/16 19:40 98.7 74 20 109/65 99 11/23/16 19:40 97 Room Air 11/23/16 18:58 99 21 11/23/16 18:00 78 11/23/16 17:29 98/62 11/23/16 17:00 75 11/23/16 16:00 98.2 68 20 138/62 99 11/23/16 16:00 78 11/23/16 15:40 97 Room Air 11/23/16 15:39 68 11/23/16 15:00 76 CBC/BMP: 11/24/16 0442 11/24/16 0442 Lab Results Laboratory Tests Test 11/24/16 04:42 White Blood Count 6.4 TH/MM3 Red Blood Count 2.66 MIL/MM3 Hemoglobin 8.4 GM/DL Hematocrit 25.2 % Mean Corpuscular Volume 94.6 FL Mean Corpuscular Hemoglobin 31.6 PG Mean Corpuscular Hemoglobin 33.4 % Concent Red Cell Distribution Width 18.3 % Platelet Count 175 TH/MM3 Mean Platelet Volume 7.7 FL Neutrophils (%) (Auto) 72.1 % Lymphocytes (%) (Auto) 12.9 % Monocytes (%) (Auto) 11.4 % Eosinophils (%) (Auto) 2.8 % Basophils (%) (Auto) 0.8 % Neutrophils # (Auto) 4.6 TH/MM3 Lymphocytes # (Auto) 0.8 TH/MM3 Monocytes # (Auto) 0.7 TH/MM3 Eosinophils # (Auto) 0.2 TH/MM3 Basophils # (Auto) 0.1 TH/MM3 CBC Comment DIFF FINAL Differential Comment Sodium Level 134 MEQ/L Potassium Level 4.3 MEQ/L Chloride Level 98 MEQ/L Carbon Dioxide Level 29.1 MEQ/L Anion Gap 7 MEQ/L Blood Urea Nitrogen 38 MG/DL Creatinine 8.79 MG/DL Estimat Glomerular Filtration 6 ML/MIN Rate Random Glucose 72 MG/DL Calcium Level 9.5 MG/DL Magnesium Level 3.1 MG/DL Current Medications Administered Medications Medications (Trade) Dose Ordered Sig/Zenobia Route PRN Reason Start Time Stop Time Status Last Admin Dose Admin Calcitriol (Rocaltrol) 0.5 mcg DAILY PO 11/17/16 09:00 11/24/16 09:53 Rifampin (Rifampin) 300 mg Q12HR PO 11/16/16 21:00 11/24/16 09:54 Vitamin B Complex/ Vit C/Folic Acid (Nephrocaps) 1 cap DAILY PO 11/17/16 09:00 11/24/16 09:53 Cinacalcet (Sensipar) 60 mg DAILY@16 PO 11/17/16 16:00 11/23/16 17:41 Sodium Chloride (NS Flush) 2 ml BID IV FLUSH 11/17/16 21:00 11/24/16 09:00 Oxycodone/ Acetaminophen 1 tab 1 tab Q4H PRN PO PAIN 1-5 11/18/16 06:15 11/22/16 05:41 Daptomycin/Sodium Chloride (Cubicin Inj/NS Inj) 100 ml @ 200 mls/hr Q48H IV 11/18/16 15:00 11/22/16 15:59 Amiodarone HCl 200 mg 200 mg Q12HR PO 11/19/16 21:00 11/24/16 09:55 Phenylephrine HCl/ Dextrose (Neosynephrine Inj/D5W 500 ml Inj) 500 ml @ 0 mls/hr TITRATE IV 11/20/16 18:15 11/22/16 11:06 Albumin Human (Albumin 5% Inj) 12.5 gm UNSCH PRN IV SEE LABEL COMMENTS 11/20/16 18:15 11/20/16 22:46 Aspirin (Aspirin Chew) 81 mg DAILY PO 11/21/16 09:00 11/24/16 09:54 Pantoprazole Sodium (Protonix) 40 mg DAILY@06 PO 11/21/16 06:00 11/24/16 06:20 Docusate Sodium (Colace) 100 mg BID PO 11/21/16 21:00 11/24/16 09:54 Multivitamins/ Minerals Therapeutic (Theragran M Tab) 1 tab DAILY PO 11/22/16 09:00 11/24/16 09:55 Magnesium Hydroxide (Milk Of Magnesia Liq) 30 ml DAILY PO 11/21/16 13:00 11/24/16 09:51 Polyethylene Glycol (Miralax) 17 gm DAILY PO 11/22/16 09:00 11/24/16 09:51 Sennosides (Senokot) 8.6 mg HS PO 11/21/16 21:00 11/23/16 21:49 Midodrine (Proamatine) 2.5 mg TID@07,12,17 PO 11/22/16 17:00 11/24/16 11:50 Physical Exam General General Appearance: Well Developed, Comfortable Eyes Eye Exam: Pupils Equal, Pupils Reactive Ears & Nose Ears & Nose Exam: Nasal Mucosa [place] Throat Throat Exam: Oral Mucosa [place] & Moist Neck Neck Exam: Trachea Midline Pulmonary Resp Exam: Breath Sounds Equal, No Distress Cardiology CV Exam: Irregular, Arrhythmia, Murmur Gastrointestinal/Abdomen GI Exam: Soft, Non-Tender, Bowel Sounds Present, Non-Distended Musculoskeletal MS Exam: Normal Tone Integumentary Skin Exam: Warm, Dry Extremeties Extremities Exam: No Edema, Pedal Pulses Palpable Neurologic Neuro Exam: Alert, Awake, Oriented, Speech Clear, Moving All Extremities, [place] Chocolate Dipper Equal, No Focal Deficits Psychiatric Psych Exam: Appropriate Responses VTE Prophylaxis VTE Prophylaxis Meds: Heparin Assessment/Plan Assessment/Plan Assessment/Plan Vital signs reviewed, normal trends , rhythm regular sinus rhythm Labs reviewed, anemia, 8.4, Mild hyponatremia 134 hemoglobin up today Brief history Syncope Status post cardiac arrest 3 on admission in the first 12 hours. 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 up in chair, activity increased and monitored continue to increase activity and monitor symptoms of pain, SOB, vertigo, dysrhythmias. Continue and appreciate cardiology input as well as cardiothoracic surgeon, post op care per their expert opinion Bowel regimen constipation, no results from meds so far, patient feels the urge occasionally, passing gas, mag citrate ordered with bedside commode in case patient needs to move in a hurry. L1 osteomyelitis with back pain, on abx per ID , probable 10-12 weeks per patient. Will recieve during HD. End-stage renal disease, followed per nephrology currently patient is receiving hemodialysis Friday while in the hospital Check labs in the morning plan for hemodialysis History of anemia, trended to 7.7 yesterday, continue to monitor symptoms and his anemia, hemoglobin 8.4 today, patient feels much stronger today diabetes, Accu-Cheks before meals and at bedtime with sliding scale hypertension, normal trends for now monitor with medical management Patient requested sleep meds, ordered as needed for at bedtime per his medical team Discussed with patient Discussed with nurse Discussed with Dr. Recinos, patient seen on his behalf, 30 min. Natasha Dumont Nov 24, 2016 12:37 Natasha Dumont Nov 24, 2016 12:37
[2016-11-24] MEDS: CINACALCET HYDROCHLORIDE 30 MG TAB PO SCH (15:34)
[2016-11-24] MEDS: DAPTOMYCIN IV SCH (15:34)
[2016-11-24] MEDS: SODIUM CHLORIDE 0.9% IV SCH (15:34)
[2016-11-24] MEDS: SENNOSIDES 8.6 MG TAB PO SCH (21:00)
[2016-11-24] MEDS: TEMAZEPAM 15 MG CAP PO PRN (23:15)
[2016-11-25] VITALS (27 sets, daily range): BP systolic 95–116; BP diastolic 64–70; PULSE 68–83; RESP 16–20; TEMP 97.8–98.8; O2SAT 94–98
[2016-11-25] MEDS: oxyCODONE/ACETAMINOPHEN 5 MG/325 MG TAB PO PRN ×2 (01:20→06:42)
[2016-11-25] MEDS: MIDODRINE 5 MG TAB PO SCH ×3 (05:55→16:50)
[2016-11-25] MEDS: PANTOPRAZOLE SOD 40 MG DELAYED RELEASE TAB PO SCH (05:55)
[2016-11-25] MEDS: RESP: ALBUTEROL 2.5 MG/IPRATROPIUM 0.5 MG NEB (SCH) NEB (08:00)
[2016-11-25] MEDS ORDERED: HEPARIN SODIUM - IV 10,000 UNITS/10 ML VIAL IV FLUSH PRN (09:15)
[2016-11-25] MEDS ORDERED: ACETAMINOPHEN 325 MG TAB PO PRN (09:15)
[2016-11-25] MEDS ORDERED: diphenhydrAMINE HCL 25 MG CAP PO PRN (09:15)
[2016-11-25] MEDS ORDERED: SODIUM CHLORIDE 0.9% FLUSH 10 ML FLUSH IV FLUSH PRN (09:15)
[2016-11-25] MEDS ORDERED: cloNIDine HCL 0.1 MG TAB PO PRN (09:15)
[2016-11-25] MEDS ORDERED: GENTAMICIN SULFATE (DIALYSIS USE ONLY) 20 MG/2 ML VIAL OTHER PRN (09:15)
[2016-11-25] MEDS ORDERED: SODIUM CHLOR 0.9% 1000 ML IV PRN (09:15)
[2016-11-25] MEDS ORDERED: HEPARIN SODIUM - IV 10,000 UNITS/10 ML VIAL OTHER PRN (09:15)
[2016-11-25] MEDS ORDERED: NS 250 ML IV PRN (09:15)
[2016-11-25] MEDS ORDERED: ONDANSETRON HCL 4 MG/2 ML VIAL IV PRN (09:15)
[2016-11-25] MEDS ORDERED: NITROGLYCERIN 0.4 MG SL 25 TABS/BTL SL PRN (09:15)
[2016-11-25] MEDS ORDERED: MANNITOL 12.5 GM/50 ML VIAL IV PRN (09:15)
[2016-11-25] MEDS: ALBUMIN HUMAN 25% 25 GM/100 ML BAGP IV PRN (09:23)
[2016-11-25] MEDS: SODIUM CHLOR 0.9% 1000 ML IV PRN (09:23)
[2016-11-25] MEDS: GELATIN 12 MM/7 MM FOAM TOPICAL PRN (09:24)
[2016-11-25] MEDS: POLYETHYLENE GLYCOL 17 GM PKG PO SCH (12:00)
[2016-11-25] MEDS: MULTIVITAMINS/MINERALS THERAPEUTIC TAB PO SCH (12:00)
[2016-11-25] MEDS: VITAMIN B CMPLX/VITC/FOLIC AC CAP PO SCH (12:00)
[2016-11-25] MEDS: RIFAMPIN 150 MG CAP PO SCH ×2 (12:00→21:08)
[2016-11-25] MEDS: CALCITRIOL 0.25 MCG CAP PO SCH (12:00)
[2016-11-25] MEDS: DOCUSATE SODIUM 100 MG CAP PO SCH ×2 (12:00→21:00)
[2016-11-25] MEDS: MAGNESIUM HYDROXIDE SUSP 30 ML CUP PO SCH (12:00)
[2016-11-25] MEDS: SODIUM CHLORIDE 0.9% FLUSH 10 ML FLUSH IV FLUSH SCH ×2 (12:00→21:06)
[2016-11-25] MEDS: ASPIRIN 81 MG CHEW TAB PO SCH (12:00)
[2016-11-25] MEDS: AMIODARONE 200 MG TAB PO SCH ×2 (12:00→21:08)
--- NOTE | 2016-11-25 13:41 | HHI.NPPN ---
Subjective History of Present Illness he had CV surgery Additional Remarks Transferred out of ICU. Clinically stable. Review of Systems General Constitutional: Fatigue Cardiovascular Cardiac: Chest Pain Objective Data Data 11/24/16 11/25/16 19:00 07:00 Intake Total 1075 ml Output Total 130 ml 570 ml Balance 945 ml -570 ml Intake Oral 975 ml IV Total 100 ml Output Urine Total 0 ml Chest Tube Drainage Total 130 ml 570 ml Vital Signs Date Time Temp Pulse Resp B/P Pulse Ox O2 Delivery O2 Flow Rate FiO2 11/25/16 12:10 81 11/25/16 12:10 95 Room Air 11/25/16 12:10 98.0 81 20 116/68 95 11/25/16 07:45 98.7 72 16 105/64 98 11/25/16 07:40 94 Room Air 11/25/16 07:40 97.8 70 20 105/64 94 11/25/16 07:40 70 11/25/16 05:03 68 11/25/16 04:57 71 11/25/16 04:23 75 11/25/16 03:38 96 Room Air 11/25/16 03:36 97.9 72 18 95/64 96 11/25/16 03:34 18 11/25/16 03:00 75 11/25/16 02:00 75 11/25/16 01:00 75 11/25/16 00:00 76 11/24/16 23:53 96 Room Air 11/24/16 23:15 98.0 76 20 96/55 97 11/24/16 23:00 75 11/24/16 22:00 78 11/24/16 21:00 79 11/24/16 20:45 97 Room Air 11/24/16 20:44 98.1 74 20 102/68 97 11/24/16 20:00 82 11/24/16 19:00 80 11/24/16 18:59 99 21 11/24/16 18:00 75 11/24/16 17:00 72 11/24/16 16:00 73 11/24/16 15:15 97 Room Air 11/24/16 15:15 98.1 72 20 116/58 99 11/24/16 15:00 77 11/24/16 14:00 77 -: 11/24/16 0442 11/24/16 0442 Physical Exam General Appearance: Well Developed, Comfortable Eyes Eye Exam: Pupils Equal, Pupils Reactive Ears & Nose Ears & Nose Exam: Nasal Mucosa [place] Throat Throat Exam: Oral Mucosa [place] & Moist Neck Neck Exam: Trachea Midline Pulmonary Resp Exam: Breath Sounds Equal, No Distress Cardiology CV Exam: Irregular, Arrhythmia, Murmur Gastrointestinal/Abdomen GI Exam: Soft, Non-Tender, Bowel Sounds Present, Non-Distended Musculoskeletal MS Exam: Normal Tone Integumentary Skin Exam: Warm, Dry Extremeties Extremities Exam: No Edema, Pedal Pulses Palpable Neurologic Neuro Exam: Alert, Awake, Oriented, Speech Clear, Moving All Extremities, Insolvency Practitioner Equal, No Focal Deficits Psychiatric Psych Exam: Appropriate Responses Assessment/Plan Problem List: (1) ESRD (end stage renal disease) on dialysis Plan: continue dialysis MWF. HD done 3 L off tolerates it well Continue to monitor fluid and electrolyte status. (2) 3-vessel coronary artery disease Plan: s/p CABG mycotic aneurysm repaired (3) Anemia Plan: Epogen with dialysis. Monitor. Araceli Freire MD Nov 25, 2016 13:41
--- NOTE | 2016-11-25 13:50 | PD.CAR.PN ---
CVT Progress Note Subjective/Hospital Course: 11/16: 71 years old male with ESRD on HD who was brought to ER from dialysis where he suddenly became unresponsive. On scene providers performed CPR for approximately 5 minutes. He underwent defibrillation twice and had a return of spontaneous circulation per ER documentation. The patient states he felt sleepy this morning and believes he may have actually fell asleep during dialysis. He does not recall the actual loss of consciousness. EMS reports that on scene he had a blood pressure 127/80 and a heart rate of 110 sinus tach. Occasional PVCs were observed. FS Glucose was 168. The dialysis session was about 50% complete when he became unresponsive and then was sent to the ER. On evaluation in the ER patient was completely asymptomatic without any chest pain. He was admitted by [facility] and was evaluated by Dr. Craig from cardiology. Patient was initiated on amiodarone drip and subsequently proceeded for VQ scan where he had another episode of V. tach arrest, CODE BLUE cardiac arrest code was activated. Patient was shocked out of the V. tach had about 2.5 minutes of CPR at that time. Subsequently he was transported to [facility] where I evaluated him immediately following his arrival. At that time patient was awake and alert and denied any chest pain or shortness of breath. He says that he passed out and does not recollect any other events. Shortly following patient's arrival to ICU he had a third episode where he became unresponsive and went into V. tach arrest. CPR/ACLS protocol initiated, patient converted spontaneously to sinus rhythm prior to defibrillation and became responsive. He denied any chest pain or shortness of breath following regaining of consciousness. Patient was given amiodarone 300 mg IV bolus following third episode of V. tach along with 2 g of magnesium sulfate IV push as well as 1 g of calcium chloride.. Patient is being treated with antibiotics for L1 osteomyelitis/ epidural abscess with rifampin and IV vancomycin. 11/17:cardiac cath by Dr. Bucio last night. 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 on heparin and NTG gtt following cardiac cath 11/18 Dr Pretty spoke with Dr Novak ID , agree pt is high risk, however with 2 episodes of Vtach arrest / requiring resuscitation / pt is even higher risk without revascularization. Dr Pretty spoke in depth with pt today , he will receive dialysis on / and is now scheduled for CABG on 11/20 will dc IV amiodarone and change to po amiodarone 11/19 remain on heparin gtt, no fevers, receiving dialysis today no ectopy noted sinus julio c, will decrease dose of amiodarone for surgery in am 11/20 surgery: CABG x 5, NUNEZ to LAD, SVG to AM, SVG to LPDA, SVG to OM2, SVG to Diag , EVH, LEONARD crystalloid 1000cc, 1900cc cell saver, 2500cc EBL, one unit plt extubated after surgery 11/21 on Maikol gtt during the night on nasal cannula , received small fluid bolus last pm hold on dialysis today 06/20 labile BP / resume in am / and re-eval later today K + 5.1 aggressive pulm toileting , OOB ambulate leave in ICU today 11/22 Bp still labile, despite giving one unit PRBC with dialysis weaning Maikol gtt slowly, NO BB due to labile and low BP add midodrine to facilitate weaning off Maikol leave chest tubes in , drained 450cc serous bloody drainage 11/23 Doing better Off of Maikol Maintain CT Ambulate Transfer [facility] 11/[address] continue to drain Received PRBC yesterday Monitor CBC 11/25 still having large amount of serous drainage from chest tube will add colchicine and decadron had dialysis today / removed 3Kg still edematous in the legs remains in NSR + BM, place to water seal Objective: GENERAL: SKIN: Warm and dry. prevena to chest HEAD: Normocephalic. EYES: No scleral icterus. No injection or drainage. NECK: Supple, trachea midline. No JVD or lymphadenopathy. CARDIOVASCULAR: Regular rate and rhythm without murmurs, gallops, or rubs. + 2 edema lower ext RESPIRATORY: Breath sounds equal bilaterally. No accessory muscle use. chestt tube to wall suction, drained 570cc serous fluid / 12 hrs GASTROINTESTINAL: Abdomen soft, non-tender, nondistended. MUSCULOSKELETAL: No cyanosis, or edema. BACK: Nontender without obvious deformity. No CVA tenderness. Vital Signs Date Time Temp Pulse Resp B/P Pulse Ox O2 Delivery O2 Flow Rate FiO2 11/25/16 12:10 81 11/25/16 12:10 95 Room Air 11/25/16 12:10 98.0 81 20 116/68 95 11/25/16 07:45 98.7 72 16 105/64 98 11/25/16 07:40 94 Room Air 11/25/16 07:40 97.8 70 20 105/64 94 11/25/16 07:40 70 11/25/16 05:03 68 11/25/16 04:57 71 11/25/16 04:23 75 11/25/16 03:38 96 Room Air 11/25/16 03:36 97.9 72 18 95/64 96 11/25/16 03:34 18 11/25/16 03:00 75 11/25/16 02:00 75 11/25/16 01:00 75 11/25/16 00:00 76 11/24/16 23:53 96 Room Air 11/24/16 23:15 98.0 76 20 96/55 97 11/24/16 23:00 75 11/24/16 22:00 78 11/24/16 21:00 79 11/24/16 20:45 97 Room Air 11/24/16 20:44 98.1 74 20 102/68 97 11/24/16 20:00 82 11/24/16 19:00 80 11/24/16 18:59 99 21 11/24/16 18:00 75 11/24/16 17:00 72 11/24/16 16:00 73 11/24/16 15:15 97 Room Air 11/24/16 15:15 98.1 72 20 116/58 99 11/24/16 15:00 77 11/24/16 14:00 77 Result Diagram: 11/24/1644111/24/16441 Telemetry: NSR (1) Aortic stenosis Plan: [id number]. (2) Ventricular fibrillation Plan: on amiodarone No BB , pt BP labile , too low on midodrine (3) 3-vessel coronary artery disease (4) Coronary aneurysm Plan: Suspected mycotic (5) Cardiopulmonary arrest with successful resuscitation Plan: s/p (6) Elevated troponin I level (7) Non-STEMI (non-ST elevated myocardial infarction) Plan: prob secondary to diagonal occlusion (8) First degree AV block (9) S/P CABG x 5 Plan: on ASA, statin , No BB ( labile BP) pulm toileting nebs ezpap , acapellla OOB ambulate add Decadron and colchicine to decrease chest tube drainage (10) ESRD (end stage renal disease) on dialysis Plan: dialysis today / Problem Qualifiers (1) Aortic stenosis: Qualified Code: I35.0 - Aortic valve stenosis, unspecified etiology Katie Riojas Nov 25, 2016 13:50
--- NOTE | 2016-11-25 13:58 | HHI.FF ---
Face to Face Verification Diagnosis: (1) ESRD (end stage renal disease) on dialysis (2) Bacteremia (3) Diabetes (4) Non-STEMI (non-ST elevated myocardial infarction) (5) S/P CABG x 5 (6) Cardiopulmonary arrest with successful resuscitation Home Health Nursing Order: Signs/symptoms of disease process Medication education-adverse effect Wound care and dressing changes Nursing assessment with vital signs Instructions: Heart and Vascular Surgery patients *Special attention to sternal dressing Mandatory frequency Assess and evaluation, 4 days in a row The next week 3X week 2 times a week for 4 weeks 1 time a week for 5 weeks Schedule Heart and Vascular patients for full 60 day certification period Initial visit Review Open Heart Surgery Discharge Instructions (Sternal precautions, Activity, Elastic hose, Incision care, Driving, Incentive spirometry, Smoking, [place], Work and other) Need Betadine to paint incision Medication reconciliation Importance of follow up care/ check on appointments Make calendar record temperature daily When to call [facility] nurse, review instructions, phone list Incentive Spirometry, demonstration Visit 1- Begin discharge instruction for patient family and/ or caregiver using teach back method- Signs and symptoms of infection Disease characteristics Medicines and side effects Foods and nutrition/ appetite Infection control/ hand washing/ hygiene Visit 2- Continue teaching Discharge instructions- include additional information on smoking cessation , sternal dressing (sternal vac) Visit 3- Continue teaching- Cough and deep breathing, incision monitoring. Choose my plate Visit 4- Continue teaching- Discuss limitations Discuss how they are feeling Discuss progress toward goals Remaining visits- continue teaching and monitoring Incentive spirometry Q1 hr x 10, while awake, also use acapella device hourly whole awake Sternal Breast Bone Precautions: NO pushing or pulling, ( pt must use sternal pillow to support chest with all activities and with coughing ( takes up to 3 months breast bone to heal ) Daily incision care: ok to shower daily, no tub bath. Wash all incisions with liquid dial soap, clean wash cloth to each site, rinse and pat dry. Observe for any signs of infection, such as drainage which is dark yellow, morales, green or foul smelling. Immediately report to the surgeon any drainage from the chest incision, or legs, and for any abnormal drainage from the chest tube sites. Notify surgeon if any temp >101.5 degrees F. When specialty dressing removed/ or if you do not have one, continue to shower daily as above, then rinse and pat incision dry and paint with betadine daily x 5 days. Allow steri strips to fall off if you have any. Avoid lotions, creams, salves, oils, etc. for the first month For Dr. Pretty patients , please obtain CBC, BMP, PA & Lat CXR in 2 weeks, results to Dr. Pretty ( prescription will be given) ( ) (Tele: [phone]) , Valve replacement pts will need 2decho in 2 weeks with results to Dr. Pretty . Please obtain 2 d echo at your cna ltc office if possible F/U appointment: as per [facility] instructions: PCP in 2 weeks, CV surgeon 2 weeks, Cloth Examiner Machine 3-4 weeks For any questions regarding incisions/ dressing / meds / post op care or above Symptoms, Friday 8am-5pm Heart & Vascular Surgery Office ( Dr. Villatoro & Dr. Pretty), After Hours / Nights (5pm -8am) Weekends and Holidays Please call [facility] ([facility]) Charge Nurse I have seen patient Roland Conrad on 11/25/16. My clinical findings support the need for the requested home health care services because: Deconditioned w/ increased weakness I certify that my clinical findings support that this patient is homebound because: Post-op weakness Katie Riojas Nov 25, 2016 13:58
[2016-11-25] MEDS: DEXAMETHASONE SOD PHOS 4 MG/ML VIAL IV PUSH SCH ×2 (14:53→21:07)
--- NOTE | 2016-11-25 15:03 | HHI.PR ---
Subjective Subjective Remarks Up in chair father and younger brother in to visit. Awake, talkative constipation resolved, BMs X 2-3, formed Right Chest tube still draining clear fluid, amount decreasing (Natasha Dumont) Review of Systems Constitutional Constitutional: Fatigue (improved), Weakness Constitutional Remarks 10 point ROS done positives noted (Natasha Dumont) Pulmonary Respiratory: Coughing (occasional improved) (Natasha Dumont) Chest/Breast Chest/Breast: Tenderness (Natasha Dumont) GI/Abdomen GI/Abdominal Exam: Constipation (resolved, ) (Natasha Dumont) Musculoskeletal MS: Weakness (Natasha Dumont) Psychiatric Psychiatric: Normal Mood (Natasha Dumont) Vitals/Results Intake & Output 11/24/16 11/24/16 11/25/16 15:00 23:00 07:00 Intake Total 1075 ml Output Total 130 ml 570 ml Balance 945 ml -570 ml Intake Oral 975 ml IV Total 100 ml Output Urine Total 0 ml Chest Tube Drainage Total 130 ml 570 ml # Bowel Movements 1 Vital Signs Vital Signs Date Time Temp Pulse Resp B/P Pulse Ox O2 Delivery O2 Flow Rate FiO2 11/25/16 12:10 81 11/25/16 12:10 95 Room Air 11/25/16 12:10 98.0 81 20 116/68 95 11/25/16 07:45 98.7 72 16 105/64 98 11/25/16 07:40 94 Room Air 11/25/16 07:40 97.8 70 20 105/64 94 11/25/16 07:40 70 11/25/16 05:03 68 11/25/16 04:57 71 11/25/16 04:23 75 11/25/16 03:38 96 Room Air 11/25/16 03:36 97.9 72 18 95/64 96 11/25/16 03:34 18 11/25/16 03:00 75 11/25/16 02:00 75 11/25/16 01:00 75 11/25/16 00:00 76 11/24/16 23:53 96 Room Air 11/24/16 23:15 98.0 76 20 96/55 97 11/24/16 23:00 75 11/24/16 22:00 78 11/24/16 21:00 79 11/24/16 20:45 97 Room Air 11/24/16 20:44 98.1 74 20 102/68 97 11/24/16 20:00 82 11/24/16 19:00 80 11/24/16 18:59 99 21 11/24/16 18:00 75 11/24/16 17:00 72 11/24/16 16:00 73 11/24/16 15:15 97 Room Air 11/24/16 15:15 98.1 72 20 116/58 99 11/24/16 15:00 77 (Natasha Dumont) CBC/BMP: 11/24/16 0442 11/24/16 0442 Current Medications Administered Medications Medications (Trade) Dose Ordered Sig/[place] Route PRN Reason Start Time Stop Time Status Last Admin Dose Admin Calcitriol (Rocaltrol) 0.5 mcg DAILY PO 11/17/16 09:00 11/25/16 12:00 Rifampin (Rifampin) 300 mg Q12HR PO 11/16/16 21:00 11/25/16 12:00 Vitamin B Complex/ Vit C/Folic Acid (Nephrocaps) 1 cap DAILY PO 11/17/16 09:00 11/25/16 12:00 Cinacalcet (Sensipar) 60 mg DAILY@16 PO 11/17/16 16:00 11/24/16 15:34 Sodium Chloride (NS Flush) 2 ml BID IV FLUSH 11/17/16 21:00 11/25/16 12:00 Oxycodone/ Acetaminophen 1 tab 1 tab Q4H PRN PO PAIN 1-5 11/18/16 06:15 11/25/16 06:42 Daptomycin/Sodium Chloride (Cubicin Inj/NS Inj) 100 ml @ 200 mls/hr Q48H IV 11/18/16 15:00 11/24/16 15:34 Amiodarone HCl (Cordarone) 200 mg Q12HR PO 11/19/16 21:00 11/25/16 12:00 Albumin Human (Albumin 5% Inj) 12.5 gm UNSCH PRN IV SEE LABEL COMMENTS 11/20/16 18:15 11/20/16 22:46 Aspirin (Aspirin Chew) 81 mg DAILY PO 11/21/16 09:00 11/25/16 12:00 Pantoprazole Sodium (Protonix) 40 mg DAILY@06 PO 11/21/16 06:00 11/25/16 05:55 Docusate Sodium (Colace) 100 mg BID PO 11/21/16 21:00 11/25/16 12:00 Multivitamins/ Minerals Therapeutic (Theragran M Tab) 1 tab DAILY PO 11/22/16 09:00 11/25/16 12:00 Magnesium Hydroxide (Milk Of Magnesia Liq) 30 ml DAILY PO 11/21/16 13:00 11/24/16 09:51 Polyethylene Glycol (Miralax) 17 gm DAILY PO 11/22/16 09:00 11/24/16 09:51 Sennosides (Senokot) 8.6 mg HS PO 11/21/16 21:00 11/23/16 21:49 Midodrine (Proamatine) 2.5 mg TID@07,12,17 PO 11/22/16 17:00 11/25/16 12:19 Temazepam 15 mg 15 mg HS PRN PO insomnia 11/24/16 17:00 11/24/16 23:15 Sodium Chloride (NS 1000 ml Inj) 1,000 ml @ 0 mls/hr TITRATE PRN IV WITH DIALYSIS 11/25/16 09:15 11/25/16 09:23 Albumin Human (Albumin 25% Inj) 25 gm UNSCH PRN IV WITH DIALYSIS 11/25/16 09:15 11/25/16 09:23 Gelatin (Gelfoam 12 Mm/7 Mm Top) 1 foam UNSCH PRN TOPICAL WITH DIALYSIS 11/25/16 09:15 11/25/16 09:24 (Natasha Dumont) Physical Exam General General Appearance: Well Developed, Comfortable (Natasha Dumont) Eyes Eye Exam: Pupils Equal, Pupils Reactive (Natasha Dumont) Ears & Nose Ears & Nose Exam: Nasal Mucosa [place] (Natasha Dumont) Throat Throat Exam: Oral Mucosa [place] & Moist (Natasha Dumont) Neck Neck Exam: Trachea Midline (Natasha Dumont) Pulmonary Resp Exam: Breath Sounds Equal, No Distress (Julia,Susan M. BEAUTY THERAPIST) Cardiology CV Exam: Irregular, Arrhythmia, Murmur (Julia,Natasha M. BEAUTY THERAPIST) Gastrointestinal/Abdomen GI Exam: Soft, Non-Tender, Bowel Sounds Present, Non-Distended ([place],Natasha M. BEAUTY THERAPIST) Musculoskeletal MS Exam: Normal Tone (JuliaSwethaNatasha M. BEAUTY THERAPIST) Integumentary Skin Exam: Warm, Dry (JuliaNatasha M. BEAUTY THERAPIST) Extremeties Extremities Exam: No Edema, Pedal Pulses Palpable ([place],Natasha M. BEAUTY THERAPIST) Neurologic Neuro Exam: Alert, Awake, Oriented, Speech Clear, Moving All Extremities, Copying Machine Mechanic Equal, No Focal Deficits (Julia,Susan M. BEAUTY THERAPIST) Psychiatric Psych Exam: Appropriate Responses (Natasha Dumont M. BEAUTY THERAPIST) VTE Prophylaxis VTE Prophylaxis Meds: Heparin (Julia,Susan M. BEAUTY THERAPIST) Assessment/Plan Assessment/Plan Assessment/Plan Vital signs reviewed, normal trends , regular rhythm check labs am Brief history Syncope Status post cardiac arrest 3 on admission in the first 12 hours. 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 up in chair, activity increased and monitored continue to increase activity and monitor symptoms of pain, SOB, vertigo, dysrhythmias. Continue and appreciate cardiology input as well as cardiothoracic surgeon, post op care per their expert opinion chest tube still in. Bowel regimen constipation,effective last pm, BM X 2-3 formed. L1 osteomyelitis with back pain, on abx per ID , probable 10-12 weeks per patient. Will recieve during HD. End-stage renal disease, followed per nephrology currently patient is receiving hemodialysis Friday while in the hospita hemodialysis today. Monitoring BP, edema >rt. arm, lower extremities. History of anemia, monitoring hgb diabetes, Accu-Cheks before meals and at bedtime with sliding scale hypertension,low normal trends for now monitor with medical management Patient requested sleep meds, ordered as needed for at bedtime per his medical team Discussed with patient Discussed with nurse Discussed with Dr. Recinos, patient seen on his behalf, 35 min. (Natasha Dumont) Assessment/Plan seen, examined by myself, Dr Recinos, today 11/25/16 Discussed with patient He has a chronic systolic murmur As several bowel movements today, the last one with diarrhea Have swelling in the legs Overall feels better Chest tube still in place Had dialysis today Arrange for rehabilitation Discussed with mid level provider The exam, history, and the medical decision-making described in the above note were completed with the assistance of the mid-level provider. I reviewed the findings presented. I attest that I had a [id number] encounter with the patient on the same day, and personally performed and documented my assessment and findings in the medical record. 35 minutes spent (Puma Recinos MD) Natasha Dumont Nov 25, 2016 15:03 Puma Recinos MD Nov 25, 2016 15:26
[2016-11-25] MEDS: CINACALCET HYDROCHLORIDE 30 MG TAB PO SCH (15:06)
[2016-11-25] MEDS: COLCHICINE 0.6 MG TAB PO SCH (15:08)
[2016-11-25] MEDS: SENNOSIDES 8.6 MG TAB PO SCH (21:00)
[2016-11-25] MEDS: TEMAZEPAM 15 MG CAP PO PRN (23:40)
[2016-11-26] VITALS (29 sets, daily range): BP systolic 94–116; BP diastolic 56–74; PULSE 71–88; RESP 14–18; TEMP 97.5–98.3; O2SAT 96–99
[2016-11-26 05:54] LABS: HEMATOCRIT 26.9 % (39.0-51.0); MEAN CELL VOLUME 95.3 FL (80.0-100.0); MEAN CORPUSCULAR HEMOGLOBIN 31.1 PG (27.0-34.0); MEAN CORPUSCULAR HGB CONC 32.6 % (32.0-36.0); PLATELET COUNT 235 TH/MM3 (150-450); RED BLOOD COUNT 2.82 MIL/MM3 (4.50-5.90); RED CELL DISTRIBUTION WIDTH 19.3 % (11.6-17.2); REVIEW FLAG FINAL
[2016-11-26 06:09] LABS: BICARBONATE 30.6 MEQ/L (21.0-32.0); POTASSIUM 5.4 MEQ/L (3.5-5.1)
[2016-11-26] MEDS: PANTOPRAZOLE SOD 40 MG DELAYED RELEASE TAB PO SCH (06:42)
[2016-11-26] MEDS: MIDODRINE 5 MG TAB PO SCH ×3 (06:42→18:29)
[2016-11-26] MEDS: POLYETHYLENE GLYCOL 17 GM PKG PO SCH (09:00)
[2016-11-26] MEDS: SODIUM CHLORIDE 0.9% FLUSH 10 ML FLUSH IV FLUSH SCH ×2 (09:00→23:05)
[2016-11-26] MEDS: VITAMIN B CMPLX/VITC/FOLIC AC CAP PO SCH (09:00)
[2016-11-26] MEDS: MAGNESIUM HYDROXIDE SUSP 30 ML CUP PO SCH (09:00)
[2016-11-26] MEDS: COLCHICINE 0.6 MG TAB PO SCH (09:00)
[2016-11-26] MEDS: DOCUSATE SODIUM 100 MG CAP PO SCH ×2 (09:42→21:00)
[2016-11-26] MEDS: ASPIRIN 81 MG CHEW TAB PO SCH (09:43)
[2016-11-26] MEDS: MULTIVITAMINS/MINERALS THERAPEUTIC TAB PO SCH (09:44)
[2016-11-26] MEDS: CALCITRIOL 0.25 MCG CAP PO SCH (09:44)
[2016-11-26] MEDS: RIFAMPIN 150 MG CAP PO SCH ×2 (09:44→23:05)
[2016-11-26] MEDS: AMIODARONE 200 MG TAB PO SCH ×2 (09:44→23:05)
[2016-11-26] MEDS: DEXAMETHASONE SOD PHOS 4 MG/ML VIAL IV PUSH SCH ×2 (09:45→23:05)
--- NOTE | 2016-11-26 09:54 | PD.CAR.PN ---
CVT Progress Note Subjective/Hospital Course: 11/16: 71 years old male with ESRD on HD who was brought to ER from dialysis where he suddenly became unresponsive. On scene providers performed CPR for approximately 5 minutes. He underwent defibrillation twice and had a return of spontaneous circulation per ER documentation. The patient states he felt sleepy this morning and believes he may have actually fell asleep during dialysis. He does not recall the actual loss of consciousness. EMS reports that on scene he had a blood pressure 127/80 and a heart rate of 110 sinus tach. Occasional PVCs were observed. FS Glucose was 168. The dialysis session was about 50% complete when he became unresponsive and then was sent to the ER. On evaluation in the ER patient was completely asymptomatic without any chest pain. [facility] and was evaluated by Dr. Craig from cardiology. Patient was initiated on amiodarone drip and subsequently proceeded for VQ scan where he had another episode of V. tach arrest, CODE BLUE cardiac arrest code was activated. Patient was shocked out of the V. tach had about 2.5 minutes of CPR at that time. Subsequently he was transported to [facility] where I evaluated him immediately following his arrival. At that time patient was awake and alert and denied any chest pain or shortness of breath. He says that he passed out and does not recollect any other events. Shortly following patient's arrival to ICU he had a third episode where he became unresponsive and went into V. tach arrest. CPR/ACLS protocol initiated, patient converted spontaneously to sinus rhythm prior to defibrillation and became responsive. He denied any chest pain or shortness of breath following regaining of consciousness. Patient was given amiodarone 300 mg IV bolus following third episode of V. tach along with 2 g of magnesium sulfate IV push as well as 1 g of calcium chloride.. Patient is being treated with antibiotics for L1 osteomyelitis/ epidural abscess with rifampin and IV vancomycin. 11/17:cardiac cath by Dr. Bucio last night. 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 on heparin and NTG gtt following cardiac cath 11/18 Dr Pretty spoke with Dr Novak ID , agree pt is high risk, however with 2 episodes of Vtach arrest / requiring resuscitation / pt is even higher risk without revascularization. Dr Pretty spoke in depth with pt today , he will receive dialysis on / and is now scheduled for CABG on 11/20 will dc IV amiodarone and change to po amiodarone 11/19 remain on heparin gtt, no fevers, receiving dialysis today no ectopy noted sinus julio c, will decrease dose of amiodarone for surgery in am 11/20 surgery: CABG x 5, NUNEZ to LAD, SVG to AM, SVG to LPDA, SVG to OM2, SVG to Diag , EVH, LEONARD crystalloid 1000cc, 1900cc cell saver, 2500cc EBL, one unit plt extubated after surgery 11/21 on Maikol gtt during the night on nasal cannula , received small fluid bolus last pm hold on dialysis today 06/20 labile BP / resume in am / and re-eval later today K + 5.1 aggressive pulm toileting , OOB ambulate leave in ICU today 11/22 Bp still labile, despite giving one unit PRBC with dialysis weaning Maikol gtt slowly, NO BB due to labile and low BP add midodrine to facilitate weaning off Maikol leave chest tubes in , drained 450cc serous bloody drainage 11/23 Doing better Off of Maikol Maintain CT Ambulate Transfer CIC 11/[address] continue to drain Received PRBC yesterday Monitor CBC 11/25 still having large amount of serous drainage from chest tube will add colchicine and decadron had dialysis today / removed 3Kg still edematous in the legs remains in NSR + BM, place to water seal 11/26 decrease in chest tube drainage 140cc/ 12hrs leave chest tube in today on room air , still + balance, for dialysis tommorow elevate legs while in bed and in chair continue Decadron and colchicine Objective: GENERAL: SKIN: Warm and dry. prevena to chest , incisions to leg HEAD: Normocephalic. EYES: No scleral icterus. No injection or drainage. NECK: Supple, trachea midline. No JVD or lymphadenopathy. CARDIOVASCULAR: Regular rate and rhythm without murmurs, gallops, or rubs. + 2 edema lower ext RESPIRATORY: Breath sounds equal bilaterally. No accessory muscle use. GASTROINTESTINAL: Abdomen soft, non-tender, nondistended. MUSCULOSKELETAL: No cyanosis, or edema. BACK: Nontender without obvious deformity. No CVA tenderness. Vital Signs Date Time Temp Pulse Resp B/P Pulse Ox O2 Delivery O2 Flow Rate FiO2 11/26/16 08:04 97.9 76 14 94/56 97 11/26/16 07:28 73 11/26/16 06:00 80 11/26/16 05:00 81 11/26/16 04:00 82 11/26/16 03:00 97.6 81 16 101/65 98 11/26/16 03:00 98 Room Air 11/26/16 03:00 81 11/26/16 02:00 88 11/26/16 01:00 82 11/26/16 00:00 82 11/25/16 23:00 78 11/25/16 23:00 96 Room Air 11/25/16 23:00 98.1 79 16 112/70 96 11/25/16 22:00 76 11/25/16 21:00 78 11/25/16 20:00 97 Room Air 11/25/16 20:00 80 11/25/16 20:00 98.8 83 16 106/66 97 11/25/16 19:00 82 11/25/16 18:03 80 11/25/16 17:00 78 11/25/16 16:30 75 11/25/16 16:30 95 Room Air 11/25/16 16:30 97.8 75 18 108/66 95 11/25/16 16:00 74 11/25/16 15:00 72 11/25/16 14:00 76 11/25/16 13:00 80 11/25/16 12:10 81 11/25/16 12:10 95 Room Air 11/25/16 12:10 98.0 81 20 116/68 95 11/25/16 12:00 74 11/25/16 11:00 78 11/25/16 10:00 72 Labs: Laboratory Tests Test 11/26/16 05:11 White Blood Count 6.0 TH/MM3 (4.0-11.0) Red Blood Count 2.82 MIL/MM3 (4.50-5.90) Hemoglobin 8.8 GM/DL (13.0-17.0) Hematocrit 26.9 % (39.0-51.0) Mean Corpuscular Volume 95.3 FL (80.0-100.0) Mean Corpuscular Hemoglobin 31.1 PG (27.0-34.0) Mean Corpuscular Hemoglobin 32.6 % Concent (32.0-36.0) Red Cell Distribution Width 19.3 % (11.6-17.2) Platelet Count 235 TH/MM3 (150-450) Mean Platelet Volume 7.1 FL (7.0-11.0) Sodium Level 136 MEQ/L (136-145) Potassium Level 5.4 MEQ/L (3.5-5.1) Chloride Level 97 MEQ/L (98-107) Carbon Dioxide Level 30.6 MEQ/L (21.0-32.0) Anion Gap 8 MEQ/L (5-15) Blood Urea Nitrogen 32 MG/DL (7-18) Creatinine 8.23 MG/DL (0.60-1.30) Estimat Glomerular Filtration 7 ML/MIN (>89) Rate Random Glucose 104 MG/DL (74-106) Calcium Level 9.5 MG/DL (8.5-10.1) Result Diagram: 11/26/1651011/26/16510 Telemetry: NSR (1) Aortic stenosis Plan: [id number]. (2) Ventricular fibrillation Plan: on amiodarone No BB , pt BP labile , too low continue midodrine (3) 3-vessel coronary artery disease (4) Coronary aneurysm Plan: Suspected mycotic (5) Cardiopulmonary arrest with successful resuscitation Plan: s/p (6) Elevated troponin I level (7) Non-STEMI (non-ST elevated myocardial infarction) Plan: prob secondary to diagonal occlusion (8) First degree AV block (9) S/P CABG x 5 Plan: on ASA, statin , No BB ( labile BP) pulm toileting nebs ezpap , acapellla OOB ambulate continue Decadron and colchicine to decrease chest tube drainage eval for removal in am (10) ESRD (end stage renal disease) on dialysis Plan: dialysis in am Problem Qualifiers (1) Aortic stenosis: Qualified Code: I35.0 - Aortic valve stenosis, unspecified etiology Katie Riojas Nov 26, 2016 09:54
--- NOTE | 2016-11-26 11:57 | HHI.NPPN ---
Subjective History of Present Illness he had CV surgery Additional Remarks Clinically stable. Review of Systems General Constitutional: Fatigue Cardiovascular Cardiac: Chest Pain Objective Data Data 11/25/16 11/26/16 19:00 07:00 Intake Total 960 ml 480 ml Output Total 3240 ml 140 ml Balance -2280 ml 340 ml Intake Oral 960 ml 480 ml IV Total 0 ml Output Urine Total 0 ml Chest Tube Drainage Total 240 ml 140 ml Hemodialysis 3000 ml # Bowel Movements 1 1 Vital Signs Date Time Temp Pulse Resp B/P Pulse Ox O2 Delivery O2 Flow Rate FiO2 11/26/16 11:52 98.2 74 16 112/68 96 11/26/16 10:52 71 11/26/16 10:00 72 11/26/16 09:00 74 11/26/16 08:57 96 21 11/26/16 08:05 97 Room Air 11/26/16 08:04 97.9 76 14 94/56 97 11/26/16 08:00 74 11/26/16 07:28 73 11/26/16 07:00 80 11/26/16 06:00 80 11/26/16 05:00 81 11/26/16 04:00 82 11/26/16 03:00 97.6 81 16 101/65 98 11/26/16 03:00 98 Room Air 11/26/16 03:00 81 11/26/16 02:00 88 11/26/16 01:00 82 11/26/16 00:00 82 11/25/16 23:00 78 11/25/16 23:00 96 Room Air 11/25/16 23:00 98.1 79 16 112/70 96 11/25/16 22:00 76 11/25/16 21:00 78 11/25/16 20:00 97 Room Air 11/25/16 20:00 80 11/25/16 20:00 98.8 83 16 106/66 97 11/25/16 19:00 82 11/25/16 18:03 80 11/25/16 17:00 78 11/25/16 16:30 75 11/25/16 16:30 95 Room Air 11/25/16 16:30 97.8 75 18 108/66 95 11/25/16 16:00 74 11/25/16 15:00 72 11/25/16 14:00 76 11/25/16 13:00 80 11/25/16 12:10 81 11/25/16 12:10 95 Room Air 11/25/16 12:10 98.0 81 20 116/68 95 11/25/16 12:00 74 -: 11/26/16 0511 11/26/16 0511 Physical Exam General Appearance: Well Developed, Comfortable Eyes Eye Exam: Pupils Equal, Pupils Reactive Ears & Nose Ears & Nose Exam: Nasal Mucosa [place] Throat Throat Exam: Oral Mucosa [place] & Moist Neck Neck Exam: Trachea Midline Pulmonary Resp Exam: Breath Sounds Equal, No Distress Cardiology CV Exam: Irregular, Arrhythmia, Murmur Gastrointestinal/Abdomen GI Exam: Soft, Non-Tender, Bowel Sounds Present, Non-Distended Musculoskeletal MS Exam: Normal Tone Integumentary Skin Exam: Warm, Dry Extremeties Extremities Exam: No Edema, Pedal Pulses Palpable Neurologic Neuro Exam: Alert, Awake, Oriented, Speech Clear, Moving All Extremities, Senior Tax Analyst Equal, No Focal Deficits Psychiatric Psych Exam: Appropriate Responses Assessment/Plan Problem List: (1) ESRD (end stage renal disease) on dialysis Plan: continue dialysis MWF. HD next tomorrow K 5.4 restrict k in diet Continue to monitor fluid and electrolyte status. (2) 3-vessel coronary artery disease Plan: s/p CABG mycotic aneurysm repaired (3) Anemia Plan: Epogen with dialysis. Monitor. Araceli Freire MD Nov 26, 2016 11:57
[2016-11-26] MEDS: SODIUM CHLORIDE 0.9% IV SCH ×2 (15:00→16:00)
[2016-11-26] MEDS: DAPTOMYCIN IV SCH ×2 (15:00→16:00)
[2016-11-26] MEDS: CINACALCET HYDROCHLORIDE 30 MG TAB PO SCH (15:58)
[2016-11-26] MEDS: oxyCODONE/ACETAMINOPHEN 5 MG/325 MG TAB PO PRN (15:58)
[2016-11-26] MEDS: FLUTICASONE PROPIONATE 50 MCG/ACT 16 GM NASAL SPRAY NASAL SCH ×2 (16:00→23:06)
--- NOTE | 2016-11-26 16:01 | HHI.PR ---
Subjective Interval History Alert, oriented, complaining of postnasal drip, chest tube still in place Review of Systems Constitutional Constitutional: Fatigue (improved), Weakness Constitutional Remarks Improving General weakness, well-controlled back pain, postnasal drip,, 10 systems reviewed otherwise negative Pulmonary Respiratory: Coughing (occasional improved) Chest/Breast Chest/Breast: Tenderness GI/Abdomen GI/Abdominal Exam: Constipation (resolved, ) Musculoskeletal MS: Weakness Psychiatric Psychiatric: Normal Mood Vitals/Results Intake & Output 11/25/16 11/25/16 11/26/16 15:00 23:00 07:00 Intake Total 960 ml 480 ml Output Total 3000 ml 240 ml 140 ml Balance -3000 ml 720 ml 340 ml Intake Oral 960 ml 480 ml IV Total 0 ml Output Urine Total 0 ml Chest Tube Drainage Total 240 ml 140 ml Hemodialysis 3000 ml # Bowel Movements 1 1 Vital Signs Vital Signs Date Time Temp Pulse Resp B/P Pulse Ox O2 Delivery O2 Flow Rate FiO2 11/26/16 15:21 73 11/26/16 14:19 73 11/26/16 13:10 78 11/26/16 12:30 95 Room Air 11/26/16 12:30 73 11/26/16 11:52 98.2 74 16 112/68 96 11/26/16 10:52 71 11/26/16 10:00 72 11/26/16 09:00 74 11/26/16 08:57 96 21 11/26/16 08:05 97 Room Air 11/26/16 08:04 97.9 76 14 94/56 97 11/26/16 08:00 74 11/26/16 07:28 73 11/26/16 07:00 80 11/26/16 06:00 80 11/26/16 05:00 81 11/26/16 04:00 82 11/26/16 03:00 97.6 81 16 101/65 98 11/26/16 03:00 98 Room Air 11/26/16 03:00 81 11/26/16 02:00 88 11/26/16 01:00 82 11/26/16 00:00 82 11/25/16 23:00 78 11/25/16 23:00 96 Room Air 11/25/16 23:00 98.1 79 16 112/70 96 11/25/16 22:00 76 11/25/16 21:00 78 11/25/16 20:00 97 Room Air 11/25/16 20:00 80 11/25/16 20:00 98.8 83 16 106/66 97 11/25/16 19:00 82 11/25/16 18:03 80 11/25/16 17:00 78 11/25/16 16:30 75 11/25/16 16:30 95 Room Air 11/25/16 16:30 97.8 75 18 108/66 95 11/25/16 16:00 74 CBC/BMP: 11/26/16 0511 11/26/16 0511 Lab Results Laboratory Tests Test 11/26/16 05:11 White Blood Count 6.0 TH/MM3 Red Blood Count 2.82 MIL/MM3 Hemoglobin 8.8 GM/DL Hematocrit 26.9 % Mean Corpuscular Volume 95.3 FL Mean Corpuscular Hemoglobin 31.1 PG Mean Corpuscular Hemoglobin 32.6 % Concent Red Cell Distribution Width 19.3 % Platelet Count 235 TH/MM3 Mean Platelet Volume 7.1 FL Sodium Level 136 MEQ/L Potassium Level 5.4 MEQ/L Chloride Level 97 MEQ/L Carbon Dioxide Level 30.6 MEQ/L Anion Gap 8 MEQ/L Blood Urea Nitrogen 32 MG/DL Creatinine 8.23 MG/DL Estimat Glomerular Filtration 7 ML/MIN Rate Random Glucose 104 MG/DL Calcium Level 9.5 MG/DL Physical Exam General General Appearance: Well Developed, Comfortable Eyes Eye Exam: Pupils Equal, Pupils Reactive Ears & Nose Ears & Nose Exam: Nasal Mucosa [place] Throat Throat Exam: Oral Mucosa [place] & Moist Neck Neck Exam: Trachea Midline Pulmonary Resp Exam: Breath Sounds Equal, No Distress Resp Remarks Chest tubes in place Cardiology CV Exam: Irregular, Arrhythmia, Murmur Gastrointestinal/Abdomen GI Exam: Soft, Non-Tender, Bowel Sounds Present, Non-Distended Musculoskeletal MS Exam: Normal Tone Integumentary Skin Exam: Warm, Dry Extremeties Extremities Exam: No Edema, Pedal Pulses Palpable Extremeties Remarks AV fistula both upper extremities Neurologic Neuro Exam: Alert, Awake, Oriented, Speech Clear, Moving All Extremities, Casino Floor Runner Equal, No Focal Deficits Psychiatric Psych Exam: Appropriate Responses VTE Prophylaxis VTE Prophylaxis Meds: Heparin Assessment/Plan Assessment/Plan Assessment Postnasal drip today Admitted following Syncope Status post cardiac arrest 3 Non-ST elevation myocardial infarction Status post cardiac catheterization 11/17/16 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
[2016-11-26] MEDS: SENNOSIDES 8.6 MG TAB PO SCH (21:00)
[2016-11-26] MEDS: TEMAZEPAM 15 MG CAP PO PRN (23:06)
[2016-11-27] VITALS (28 sets, daily range): BP systolic 112–140; BP diastolic 66–87; PULSE 60–96; RESP 16–18; TEMP 97.3–98.4; O2SAT 95–98
[2016-11-27] MEDS: MIDODRINE 5 MG TAB PO SCH (06:28)
[2016-11-27] MEDS: PANTOPRAZOLE SOD 40 MG DELAYED RELEASE TAB PO SCH (06:28)
[2016-11-27] MEDS: GELATIN 12 MM/7 MM FOAM TOPICAL PRN (08:39)
[2016-11-27] MEDS: SODIUM CHLOR 0.9% 1000 ML IV PRN (08:39)
[2016-11-27] MEDS: ALBUMIN HUMAN 25% 25 GM/100 ML BAGP IV PRN (08:39)
[2016-11-27] MEDS: SODIUM CHLORIDE 0.9% FLUSH 10 ML FLUSH IV FLUSH SCH ×2 (09:00→21:00)
[2016-11-27] MEDS: VITAMIN B CMPLX/VITC/FOLIC AC CAP PO SCH (09:00)
[2016-11-27] MEDS: AMIODARONE 200 MG TAB PO SCH ×2 (09:00→21:13)
[2016-11-27] MEDS: FLUTICASONE PROPIONATE 50 MCG/ACT 16 GM NASAL SPRAY NASAL SCH ×2 (09:00→21:16)
[2016-11-27] MEDS: COLCHICINE 0.6 MG TAB PO SCH (09:00)
[2016-11-27] MEDS: MAGNESIUM HYDROXIDE SUSP 30 ML CUP PO SCH (09:00)
[2016-11-27] MEDS: DOCUSATE SODIUM 100 MG CAP PO SCH ×2 (09:00→21:15)
[2016-11-27] MEDS: POLYETHYLENE GLYCOL 17 GM PKG PO SCH (09:00)
--- NOTE | 2016-11-27 09:54 | RSPPFT ---
DATE OF PROCEDURE: 11/17/16 COMMENTS: Spirometry demonstrates an FEV1 of 1.9 at 55% of predicted, FVC of 2.3 at 50%, FEF 25-75 at 68%. Post-bronchodilator study was not conducted. Flow volume loops are incomplete due to a technical problem. Lung volumes were not performed. IMPRESSION: 1. Probable moderate restrictive disease. 2. No significant obstructive disease. 3. Please repeat with lung volumes to confirm restrictive disease.
--- NOTE | 2016-11-27 10:51 | HHI.IDPN ---
Subjective Subjective Remarks Mr. Conrad is a 71-year-old occasional male with past medical history significant for end-stage renal disease on hemodialysis using an AV fistula. His past medical history is also significant for multiple infections likely related to Hemodialysis access site. Upon review of medical records it appears that in March 2015 patient had group B strep bacteremia. In February 2016 patient had MSSA bacteremia. 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 He has been set up to complete 12 weeks IV vancomycin which will end Jan 27. Admitted this time after he had cardiac arrest during his HD and had 2nd arrest here. 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 He is S/P CABG x 5, path of aneurysm with neutrophils though G/S negative for presence of organisms His BC have been negative C/S from OR negative Patient seen during HD He is afebrile Has CT in place Has a vac dressing over his sternal incision Not SOB No rash or itching Having BM after laxatives given Back pain almost gone Patient plans to go home on D/C; brother in town to help him out Antibiotics Daptomycin IV Rifampin oral Lines Line sites with no evidence of infection. Past Medical History Reviewed. Allergies: Coded Allergies: *MDRO Multi-Drug Resistant Organism (Verified Adverse Reaction, Unknown, ) MRSA PCR screen POSITIVE - 03/13/16 MRSA (blood)-10/29/16 Objective . Vital Signs Date Time Temp Pulse Resp B/P Pulse Ox O2 Delivery O2 Flow Rate FiO2 11/27/16 10:00 68 11/27/16 09:34 98 21 11/27/16 09:00 80 11/27/16 08:00 71 11/27/16 07:00 98.0 77 16 129/69 11/27/16 07:00 86 11/27/16 06:00 77 11/27/16 05:00 75 11/27/16 04:00 77 11/27/16 03:20 97.3 78 16 121/74 98 11/27/16 03:00 78 11/27/16 02:00 73 11/27/16 01:00 79 11/27/16 00:00 73 11/26/16 23:00 97.9 73 16 101/65 99 11/26/16 23:00 71 11/26/16 22:00 72 11/26/16 21:00 74 11/26/16 20:30 98 Room Air 11/26/16 20:30 98.3 74 18 96/65 98 11/26/16 20:00 80 11/26/16 19:00 77 11/26/16 18:06 81 11/26/16 17:00 14 11/26/16 16:01 98 Room Air 11/26/16 16:01 78 11/26/16 16:00 97.5 78 14 116/74 98 11/26/16 15:21 73 11/26/16 14:19 73 11/26/16 13:10 78 11/26/16 12:30 95 Room Air 11/26/16 12:30 73 11/26/16 11:52 98.2 74 16 112/68 96 11/26/16 10:52 71 11/26/16 11/26/16 11/27/16 15:00 23:00 07:00 Intake Total 780 ml 720 ml Output Total 320 ml 130 ml Balance 460 ml 590 ml Intake Oral 680 ml 720 ml IV Total 100 ml 0 ml Output Urine Total 0 ml Chest Tube Drainage Total 320 ml 130 ml # Voids 6 # Bowel Movements 1 1 . Laboratory Tests Test 11/26/16 05:11 White Blood Count 6.0 TH/MM3 Red Blood Count 2.82 MIL/MM3 Hemoglobin 8.8 GM/DL Hematocrit 26.9 % Mean Corpuscular Volume 95.3 FL Mean Corpuscular Hemoglobin 31.1 PG Mean Corpuscular Hemoglobin 32.6 % Concent Red Cell Distribution Width 19.3 % Platelet Count 235 TH/MM3 Mean Platelet Volume 7.1 FL Laboratory Tests Test 11/26/16 05:11 Sodium Level 136 MEQ/L Potassium Level 5.4 MEQ/L Chloride Level 97 MEQ/L Carbon Dioxide Level 30.6 MEQ/L Anion Gap 8 MEQ/L Blood Urea Nitrogen 32 MG/DL Creatinine 8.23 MG/DL Estimat Glomerular Filtration 7 ML/MIN Rate Random Glucose 104 MG/DL Calcium Level 9.5 MG/DL Imaging Last Impressions Thoracic Spine MRI 11/17/16 0000 Signed Impressions: Service Date/Time: Thursday, November 17, 2016 17:29 - CONCLUSION: 1. Resolution of previous epidural abscess. 2. Residual probable disc protrusion at T3-4 and T6- 7 is stable. 3. Discitis and osteomyelitis at T3-4 with a relatively stable signal changes in the structures since October 31. Kei Gu MD Lumbar Spine MRI 11/17/16 Signed Impressions: Service Date/Time: Thursday, November 17, 2016 17:29 - CONCLUSION: 1. Chronic disc degeneration at L1-2 with mild to moderate stenosis. No other significant canal stenosis. No evidence for acute discitis or osteomyelitis. Kei Gu MD Lower Extremity Ultrasound 11/17/16 Signed Impressions: Service Date/Time: Thursday, November 17, 2016 15:27 - CONCLUSION: Venous mapping as delineated above. Geovanni Flanagan MD Chest CT 11/17/16 Signed Impressions: Service Date/Time: Thursday, November 17, 2016 18:23 - CONCLUSION: 1. Small right-sided effusion and small to moderate left effusion. Right effusion is at least partially loculated. There is dependent consolidation and atelectasis in both lungs. No adenopathy or pneumothorax. Kei Gu MD Cervical Spine MRI 11/17/16 0000 Signed Impressions: Service Date/Time: Thursday, November 17, 2016 17:29 - CONCLUSION: 1. Stable moderate degenerative disc disease since October 31. Mild canal stenosis at C5-6. No cord signal abnormality. No evidence for discitis or osteomyelitis of the cervical spine. Kei Gu MD Carotid Artery Ultrasound 11/17/16 0000 Signed Impressions: Service Date/Time: Thursday, November 17, 2016 15:05 - CONCLUSION: 1. Calcified plaque seen in the carotid arteries bilaterally, especially around the bifurcations. However, no hemodynamically significant stenosis is identified. Vertebral artery flow antegrade bilaterally. Kei Gu MD Chest X-Ray 11/16/16 1240 Signed Impressions: Service Date/Time: Wednesday, November 16, 2016 12:41 - CONCLUSION: Basilar airspace disease suspected, mild. This is a change from the previous study. Steve Yates MD Lung Scan Nuclear Medicine 11/16/16 0000 Signed Impressions: Service Date/Time: Wednesday, November 16, 2016 16:52 - CONCLUSION: Negative for pulmonary embolism. Kei Gu MD Physical Exam GENERAL: Awake and laert, in no apparent distress. SKIN: No rashes, ecchymoses or lesions. Cool and dry. HEAD: Atraumatic. Normocephalic. No temporal or scalp tenderness. EYES: Pupils equal round and reactive. No petchia or hemorrhage. No scleral icterus. No injection or drainage. ENT: Nose without bleeding, purulent drainage or septal hematoma. MOist oral mucosa, no oral lesions NECK: Trachea midline. Supple, nontender, no meningeal signs. CARDIOVASCULAR: Regular, with murmur at base of heart, no rub. has dressing on his sternal incision RESPIRATORY: CT in place. Decreased BS at bases GASTROINTESTINAL: Abdomen soft, non-tender, nondistended. (+) BS MUSCULOSKELETAL: Extremities without clubbing, cyanosis, or edema. No calf tenderness. Negative Homans sign bilaterally. AVF LUE looks ok NEUROLOGICAL: Awake and alert. Grossly non focal Psych: cooperative IV line sites with no e.o infection. 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 (ASP: Clinical Suspected Vanco failure, Vanco ANGELO 2 on last blood culture) - on his HD days, give after his HD Continue Rifampin. MRI L-,C-,T-Spine no drainable foci of infection. Discitis as noted in prior sites. No new foci of infection. PICC - D/W Dr Freire, and he is ok with this Lab monitoring while on Abx: CBC, LFT, CPK Plan to complete Rx Jan 27 Explained plan to the patient Will consult CM to arrange for home health nurse to administer his IV Abx Angela Farmer MD Nov 27, 2016 10:51
--- NOTE | 2016-11-27 11:10 | PD.CAR.PN ---
CVT Progress Note Subjective/Hospital Course: 11/16: 71 years old male with ESRD on HD who was brought to ER from dialysis where he suddenly became unresponsive. On scene providers performed CPR for approximately 5 minutes. He underwent defibrillation twice and had a return of spontaneous circulation per ER documentation. The patient states he felt sleepy this morning and believes he may have actually fell asleep during dialysis. He does not recall the actual loss of consciousness. EMS reports that on scene he had a blood pressure 127/80 and a heart rate of 110 sinus tach. Occasional PVCs were observed. FS Glucose was 168. The dialysis session was about 50% complete when he became unresponsive and then was sent to the ER. On evaluation in the ER patient was completely asymptomatic without any chest pain. [facility] and was evaluated by Dr. Craig from cardiology. Patient was initiated on amiodarone drip and subsequently proceeded for VQ scan where he had another episode of V. tach arrest, CODE BLUE cardiac arrest code was activated. Patient was shocked out of the V. tach had about 2.5 minutes of CPR at that time. Subsequently he was transported to [facility] where I evaluated him immediately following his arrival. At that time patient was awake and alert and denied any chest pain or shortness of breath. He says that he passed out and does not recollect any other events. Shortly following patient's arrival to ICU he had a third episode where he became unresponsive and went into V. tach arrest. CPR/ACLS protocol initiated, patient converted spontaneously to sinus rhythm prior to defibrillation and became responsive. He denied any chest pain or shortness of breath following regaining of consciousness. Patient was given amiodarone 300 mg IV bolus following third episode of V. tach along with 2 g of magnesium sulfate IV push as well as 1 g of calcium chloride.. Patient is being treated with antibiotics for L1 osteomyelitis/ epidural abscess with rifampin and IV vancomycin. 11/17:cardiac cath by Dr. Bucio last night. 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 on heparin and NTG gtt following cardiac cath 11/18 Dr Pretty spoke with Dr Novak ID , agree pt is high risk, however with 2 episodes of Vtach arrest / requiring resuscitation / pt is even higher risk without revascularization. Dr Pretty spoke in depth with pt today , he will receive dialysis on / and is now scheduled for CABG on 11/20 will dc IV amiodarone and change to po amiodarone 11/19 remain on heparin gtt, no fevers, receiving dialysis today no ectopy noted sinus julio c, will decrease dose of amiodarone for surgery in am 11/20 surgery: CABG x 5, NUNEZ to LAD, SVG to AM, SVG to LPDA, SVG to OM2, SVG to Diag , EVH, LEONARD crystalloid 1000cc, 1900cc cell saver, 2500cc EBL, one unit plt extubated after surgery 11/21 on Maikol gtt during the night on nasal cannula , received small fluid bolus last pm hold on dialysis today 06/20 labile BP / resume in am / and re-eval later today K + 5.1 aggressive pulm toileting , OOB ambulate leave in ICU today 11/22 Bp still labile, despite giving one unit PRBC with dialysis weaning Maikol gtt slowly, NO BB due to labile and low BP add midodrine to facilitate weaning off Maikol leave chest tubes in , drained 450cc serous bloody drainage 11/23 Doing better Off of Maikol Maintain CT Ambulate Transfer CIC 11/[address] continue to drain Received PRBC yesterday Monitor CBC 11/25 still having large amount of serous drainage from chest tube will add colchicine and decadron had dialysis today / removed 3Kg still edematous in the legs remains in NSR + BM, place to water seal 11/26 decrease in chest tube drainage 140cc/ 12hrs leave chest tube in today on room air , still + balance, for dialysis tommorow elevate legs while in bed and in chair continue Decadron and colchicine 11/27 chest tube drained 130cc serous drainage / will dc after dialysis today discussed with ID, will need IV antibiotics for home will need to have Nephro eval for outpt dialysis will he is IV antibiotics plan for possible dc in am Objective: GENERAL: SKIN: Warm and dry. prevena to chest , incision intact to leg HEAD: Normocephalic. EYES: No scleral icterus. No injection or drainage. NECK: Supple, trachea midline. No JVD or lymphadenopathy. CARDIOVASCULAR: Regular rate and rhythm soft systolic murmur + 1 edema lower ext RESPIRATORY: Breath sounds equal bilaterally. No accessory muscle use. GASTROINTESTINAL: Abdomen soft, non-tender, nondistended. MUSCULOSKELETAL: No cyanosis, or edema. BACK: Nontender without obvious deformity. No CVA tenderness. Vital Signs Date Time Temp Pulse Resp B/P Pulse Ox O2 Delivery O2 Flow Rate FiO2 11/27/16 10:00 68 11/27/16 09:34 98 21 11/27/16 09:00 80 11/27/16 08:00 71 11/27/16 07:00 98.0 77 16 129/69 11/27/16 07:00 86 11/27/16 06:00 77 11/27/16 05:00 75 11/27/16 04:00 77 11/27/16 03:20 97.3 78 16 121/74 98 11/27/16 03:00 78 11/27/16 02:00 73 11/27/16 01:00 79 11/27/16 00:00 73 11/26/16 23:00 97.9 73 16 101/65 99 11/26/16 23:00 71 11/26/16 22:00 72 11/26/16 21:00 74 11/26/16 20:30 98 Room Air 11/26/16 20:30 98.3 74 18 96/65 98 11/26/16 20:00 80 11/26/16 19:00 77 11/26/16 18:06 81 11/26/16 17:00 14 11/26/16 16:01 98 Room Air 11/26/16 16:01 78 11/26/16 16:00 97.5 78 14 116/74 98 11/26/16 15:21 73 11/26/16 14:19 73 11/26/16 13:10 78 11/26/16 12:30 95 Room Air 11/26/16 12:30 73 11/26/16 11:52 98.2 74 16 112/68 96 Result Diagram: 11/26/1651011/26/16510 Telemetry: NSR (1) Aortic stenosis Plan: [id number]. (2) Ventricular fibrillation Plan: on amiodarone No BB , pt BP labile , too low attempt to wean midodrine (3) 3-vessel coronary artery disease (4) Coronary aneurysm Plan: Suspected mycotic/ path coronary aneurysm/ scattered neutrophils (5) Cardiopulmonary arrest with successful resuscitation Plan: s/p (6) Elevated troponin I level (7) Non-STEMI (non-ST elevated myocardial infarction) Plan: prob secondary to diagonal occlusion (8) First degree AV block (9) S/P CABG x 5 Plan: on ASA, statin , No BB ( labile BP) pulm toileting nebs ezpap , acapellla OOB ambulate dc Decadron and colchicine dc chest tube after dialysis today eval for discharge in am (10) ESRD (end stage renal disease) on dialysis Plan: dialysis today Problem Qualifiers (1) Aortic stenosis: Qualified Code: I35.0 - Aortic valve stenosis, unspecified etiology Katie Riojas Nov 27, 2016 11:10
--- NOTE | 2016-11-27 11:16 | HHI.NPPN ---
Subjective History of Present Illness he had CV surgery Additional Remarks Clinically stable. Review of Systems General Constitutional: Fatigue Cardiovascular Cardiac: Chest Pain Objective Data Data 11/26/16 11/27/16 18:59 06:59 Intake Total 780 ml 720 ml Output Total 320 ml 130 ml Balance 460 ml 590 ml Intake Oral 680 ml 720 ml IV Total 100 ml 0 ml Output Urine Total 0 ml Chest Tube Drainage Total 320 ml 130 ml # Voids 6 # Bowel Movements 1 1 Vital Signs Date Time Temp Pulse Resp B/P Pulse Ox O2 Delivery O2 Flow Rate FiO2 11/27/16 10:00 68 11/27/16 09:34 98 21 11/27/16 09:00 80 11/27/16 08:00 71 11/27/16 07:00 98.0 77 16 129/69 11/27/16 07:00 86 11/27/16 06:00 77 11/27/16 05:00 75 11/27/16 04:00 77 11/27/16 03:20 97.3 78 16 121/74 98 11/27/16 03:00 78 11/27/16 02:00 73 11/27/16 01:00 79 11/27/16 00:00 73 11/26/16 23:00 97.9 73 16 101/65 99 11/26/16 23:00 71 11/26/16 22:00 72 11/26/16 21:00 74 11/26/16 20:30 98 Room Air 11/26/16 20:30 98.3 74 18 96/65 98 11/26/16 20:00 80 11/26/16 19:00 77 11/26/16 18:06 81 11/26/16 17:00 14 11/26/16 16:01 98 Room Air 11/26/16 16:01 78 11/26/16 16:00 97.5 78 14 116/74 98 11/26/16 15:21 73 11/26/16 14:19 73 11/26/16 13:10 78 11/26/16 12:30 95 Room Air 11/26/16 12:30 73 11/26/16 11:52 98.2 74 16 112/68 96 -: 11/26/16 0511 11/26/16 0511 Physical Exam General Appearance: Well Developed, Comfortable Eyes Eye Exam: Pupils Equal, Pupils Reactive Ears & Nose Ears & Nose Exam: Nasal Mucosa [place] Throat Throat Exam: Oral Mucosa [place] & Moist Neck Neck Exam: Trachea Midline Pulmonary Resp Exam: Breath Sounds Equal, No Distress Cardiology CV Exam: Irregular, Arrhythmia, Murmur Gastrointestinal/Abdomen GI Exam: Soft, Non-Tender, Bowel Sounds Present, Non-Distended Musculoskeletal MS Exam: Normal Tone Integumentary Skin Exam: Warm, Dry Extremeties Extremities Exam: No Edema, Pedal Pulses Palpable Neurologic Neuro Exam: Alert, Awake, Oriented, Speech Clear, Moving All Extremities, Switch Operator Equal, No Focal Deficits Psychiatric Psych Exam: Appropriate Responses Assessment/Plan Problem List: (1) ESRD (end stage renal disease) on dialysis Plan: continue dialysis MWF. HD Proceedings noted 3 L UF BP low normal D/W Dr. Darian TAPIA for PICC due to MRSA infection on Daptomycin Continue to monitor fluid and electrolyte status. (2) 3-vessel coronary artery disease Plan: s/p CABG mycotic aneurysm repaired (3) Anemia Plan: Epogen with dialysis. Monitor. Araceli Freire MD Nov 27, 2016 11:16
[2016-11-27] MEDS: MULTIVITAMINS/MINERALS THERAPEUTIC TAB PO SCH (12:07)
[2016-11-27] MEDS: ASPIRIN 81 MG CHEW TAB PO SCH (12:07)
[2016-11-27] MEDS: CALCITRIOL 0.25 MCG CAP PO SCH (12:08)
[2016-11-27] MEDS: RIFAMPIN 150 MG CAP PO SCH ×2 (12:09→21:13)
[2016-11-27] MEDS: DEXAMETHASONE SOD PHOS 4 MG/ML VIAL IV PUSH SCH (12:10)
--- NOTE | 2016-11-27 14:16 | HHI.PR ---
Subjective Subjective Remarks Resting in bed Young family member and Alert talkative No acute pain or shortness of breath Chest tube out (Natasha Dumont) Review of Systems Constitutional Constitutional: Fatigue (improved), Weakness Constitutional Remarks 10 point ROS done positives noted (Natasha Dumont) Pulmonary Respiratory: Coughing (occasional improved) (Natasha Dumont) Cardiology CV Remarks Chest tube removed today (Natasha Dumont) Chest/Breast Chest/Breast: Tenderness (Natasha Dumont) GI/Abdomen GI/Abdominal Exam: Constipation (resolved, ) (Natasha Dumont) Musculoskeletal MS: Weakness (Natasha Dumont) Psychiatric Psychiatric: Normal Mood (Natasha Dumont) Vitals/Results Intake & Output 11/26/16 11/26/16 11/27/16 15:00 23:00 07:00 Intake Total 780 ml 720 ml Output Total 320 ml 130 ml Balance 460 ml 590 ml Intake Oral 680 ml 720 ml IV Total 100 ml 0 ml Output Urine Total 0 ml Chest Tube Drainage Total 320 ml 130 ml # Voids 6 # Bowel Movements 1 1 Vital Signs Vital Signs Date Time Temp Pulse Resp B/P Pulse Ox O2 Delivery O2 Flow Rate FiO2 11/27/16 13:26 91 11/27/16 12:09 82 11/27/16 11:00 98.4 61 18 112/74 97 11/27/16 11:00 72 11/27/16 11:00 68 11/27/16 10:00 68 11/27/16 09:34 98 21 11/27/16 09:00 80 11/27/16 08:00 71 11/27/16 07:00 98.0 77 16 129/69 11/27/16 07:00 86 11/27/16 06:00 77 11/27/16 05:00 75 11/27/16 04:00 77 11/27/16 03:20 97.3 78 16 121/74 98 11/27/16 03:00 78 11/27/16 02:00 73 11/27/16 01:00 79 11/27/16 00:00 73 11/26/16 23:00 97.9 73 16 101/65 99 11/26/16 23:00 71 11/26/16 22:00 72 11/26/16 21:00 74 11/26/16 20:30 98 Room Air 11/26/16 20:30 98.3 74 18 96/65 98 11/26/16 20:00 80 11/26/16 19:00 77 11/26/16 18:06 81 11/26/16 17:00 14 11/26/16 16:01 98 Room Air 11/26/16 16:01 78 11/26/16 16:00 97.5 78 14 116/74 98 11/26/16 15:21 73 11/26/16 14:19 73 (Natasha Dumont) CBC/BMP: 11/26/16 0511 11/26/16 0511 Current Medications Administered Medications Medications (Trade) Dose Ordered Sig/[place] Route PRN Reason Start Time Stop Time Status Last Admin Dose Admin Calcitriol (Rocaltrol) 0.5 mcg DAILY PO 11/17/16 09:00 11/27/16 12:08 Rifampin (Rifampin) 300 mg Q12HR PO 11/16/16 21:00 11/27/16 12:09 Vitamin B Complex/ Vit C/Folic Acid (Nephrocaps) 1 cap DAILY PO 11/17/16 09:00 11/27/16 09:00 Cinacalcet (Sensipar) 60 mg DAILY@16 PO 11/17/16 16:00 11/26/16 15:58 Sodium Chloride (NS Flush) 2 ml BID IV FLUSH 11/17/16 21:00 11/27/16 09:00 Oxycodone/ Acetaminophen (Percocet 5-325 Mg) 1 tab Q4H PRN PO PAIN 1-5 11/18/16 06:15 11/26/16 15:58 Amiodarone HCl (Cordarone) 200 mg Q12HR PO 11/19/16 21:00 11/27/16 09:00 Albumin Human (Albumin 5% Inj) 12.5 gm UNSCH PRN IV SEE LABEL COMMENTS 11/20/16 18:15 11/20/16 22:46 Aspirin (Aspirin Chew) 81 mg DAILY PO 11/21/16 09:00 11/27/16 12:07 Pantoprazole Sodium (Protonix) 40 mg DAILY@06 PO 11/21/16 06:00 11/27/16 06:28 Docusate Sodium (Colace) 100 mg BID PO 11/21/16 21:00 11/26/16 09:42 Multivitamins/ Minerals Therapeutic (Theragran M Tab) 1 tab DAILY PO 11/22/16 09:00 11/27/16 12:07 Magnesium Hydroxide (Milk Of Magnesia Liq) 30 ml DAILY PO 11/21/16 13:00 11/24/16 09:51 Polyethylene Glycol (Miralax) 17 gm DAILY PO 11/22/16 09:00 11/27/16 09:00 Sennosides (Senokot) 8.6 mg HS PO 11/21/16 21:00 11/23/16 21:49 Temazepam 15 mg 15 mg HS PRN PO insomnia 11/24/16 17:00 11/26/16 23:06 Sodium Chloride (NS 1000 ml Inj) 1,000 ml @ 0 mls/hr TITRATE PRN IV WITH DIALYSIS 11/25/16 09:15 11/27/16 08:39 Albumin Human (Albumin 25% Inj) 25 gm UNSCH PRN IV WITH DIALYSIS 11/25/16 09:15 11/27/16 08:39 Gelatin (Gelfoam 12 Mm/7 Mm Top) 1 foam UNSCH PRN TOPICAL WITH DIALYSIS 11/25/16 09:15 11/27/16 08:39 Fluticasone Propionate (Flonase Carlos Spr) 1 spray BID NASAL 11/26/16 16:00 11/26/16 23:06 (Natasha Dumont) Physical Exam General General Appearance: Well Developed, Comfortable (Natasha Dumont) Eyes Eye Exam: Pupils Equal, Pupils Reactive (Natasha DumnotP) Ears & Nose Ears & Nose Exam: Nasal Mucosa [place] (Natasha Dumont) Throat Throat Exam: Oral Mucosa [place] & Moist (Natasha DumontP) Neck Neck Exam: Trachea Midline (Natasha DumontP) Pulmonary Resp Exam: Breath Sounds Equal, No Distress (Natasha DumontP) Cardiology CV Exam: Irregular, Arrhythmia, Murmur CV Remarks Chest tube removed today dressing clean dry and intact, no shortness of breath ( Natasha Dumont) Gastrointestinal/Abdomen GI Exam: Soft, Non-Tender, Bowel Sounds Present, Non-Distended (Natasha Dumont) Musculoskeletal MS Exam: Normal Tone MS Remarks Extremity edema 2-3+ (Natasha DumontP) Integumentary Skin Exam: Warm, Dry (Natasha Dumont) Extremeties Extremities Exam: No Edema, Pedal Pulses Palpable (Natasha DumontP) Neurologic Neuro Exam: Alert, Awake, Oriented, Speech Clear, Moving All Extremities, Freelance Copywriter Equal, No Focal Deficits (Natasha Dumont) Psychiatric Psych Exam: Appropriate Responses (Natasha Dumont) VTE Prophylaxis VTE Prophylaxis Meds: Heparin (Natasha Dumont) Assessment/Plan Assessment/Plan Assessment Vital signs reviewed trends are normal Labs reviewed, chest tube removed today, no shortness of breath Labs are stable Postnasal drip today, started Flonase twice a day Admitted following Syncope Status post cardiac arrest 3 Non-ST elevation myocardial infarction Status post cardiac catheterization 11/17/16 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 Status post CABG 5 on 11/20/16 Postoperative hypotension on pressors Chest tube removed today 11-27, continue activity Discharge planning tomorrow tentative L1 osteomyelitis with back pain, abx per ID continue IV antibiotics with hemodialysis, PICC line for extra dose that will be given per home health End-stage renal disease, hemodialysis will be done with antibiotic being given at that time, Chronic hyperphosphatemia, most recent level was normalized, appreciate nephrology consult and plan a care, dialysis due tomorrow History of anemia, diabetes, hypertension Anemia CKD, with hyperkalemia, lower extremity edema continues, upper extremities improvement Valvular disease Maintain nutrition, pain management Call for any acute pain or shortness of breath Activity continue out of bed and ambulating Discussed with patient and family at bedside Discussed with nurse Discussed with Dr. Recinos, seen on his behalf 25 minutes (Natasha Dumont) Assessment/Plan seen, examined by myself, Dr Recinos, today 11/27/16 Discussed with patient Chest tube is now removed Discussed with mid level provider The exam, history, and the medical decision-making described in the above note were completed with the assistance of the mid-level provider. I reviewed the findings presented. I attest that I had a [id number] encounter with the patient on the same day, and personally performed and documented my assessment and findings in the medical record. (Puma Recinos MD) Natasha Dumont Nov 27, 2016 14:16 Puma Recinos MD Nov 27, 2016 17:03
[2016-11-27] MEDS: CINACALCET HYDROCHLORIDE 30 MG TAB PO SCH (16:00)
--- NOTE | 2016-11-27 16:16 | RADRPT ---
EXAM DATE/TIME: 11/27/2016 15:48 [place] COMPARISON: CHEST SINGLE AP, November 21, 2016, 3:42. INDICATIONS : Post PICC line placement. MEDICAL HISTORY : Renal failure, chronic. Hypertension SURGICAL HISTORY : CABG. Umbilical hernia repair. ENCOUNTER: Initial ACUITY: 1 day PAIN SCORE: 0/10 LOCATION: Bilateral chest FINDINGS: Interval removal of right IJ central line, mediastinal drain, and left-sided chest tube. Interval esequiel cement of right-sided PICC line with tip in the central SVC approximately 2.5 cm above the atriocaval junction. Redemonstration of probable small amount of fluid sequestered in the minor fissure. Mild i nterstitial prominence. Cardiac silhouette is enlarged. Remainder of the exam is unchanged. CONCLUSION: 1. Right-sided PICC line tip in the central SVC approximately 2.5 cm above the cavoatrial junction. 2. Cardiomegaly with slight positive fluid balance. 3. Small amount of sequestered pleural fluid in the minor fissure. Kane Chapin MD on November 27, 2016 at 16:11 Board Certified Radiologist. This report was verified electronically.
[2016-11-27] MEDS ORDERED: SODIUM CHLORIDE 0.9% FLUSH 10 ML FLUSH IV FLUSH PRN (16:30)
[2016-11-27] MEDS ORDERED: MIDODRINE 5 MG TAB PO SCH (21:00)
[2016-11-27] MEDS: SENNOSIDES 8.6 MG TAB PO SCH (21:00)
[2016-11-27] MEDS: TEMAZEPAM 15 MG CAP PO PRN (23:14)
[2016-11-28] VITALS (14 sets, daily range): BP systolic 109–117; BP diastolic 62–68; PULSE 73–91; RESP 16–18; TEMP 98–98.3; O2SAT 94–99
[2016-11-28] MEDS: PANTOPRAZOLE SOD 40 MG DELAYED RELEASE TAB PO SCH (05:20)
[2016-11-28 05:39] LABS: AUTOMATED NEUTROPHIL # 4.6 TH/MM3 (1.8-7.7); BASOPHIL # 0.1 TH/MM3 (0-0.2); BASOPHIL % 1.5 % (0.0-2.0); EOSINOPHIL # 0.3 TH/MM3 (0-0.4); EOSINOPHIL % 4.4 % (0.0-4.0); HEMATOCRIT 24.4 % (39.0-51.0); HEMO FLAGS DIFF FINAL; LYMPH % 15.5 % (9.0-44.0); LYMPHOCYTE # 1.1 TH/MM3 (1.0-4.8); MEAN CORPUSCULAR HEMOGLOBIN 31.3 PG (27.0-34.0); MONO % 10.2 % (0.0-8.0); NEUT % 68.4 % (16.0-70.0); PLATELET COUNT 271 TH/MM3 (150-450); RED BLOOD COUNT 2.56 MIL/MM3 (4.50-5.90); RED CELL DISTRIBUTION WIDTH 19.8 % (11.6-17.2); WHITE BLOOD COUNT 6.8 TH/MM3 (4.0-11.0)
[2016-11-28] MEDS ORDERED: MIDODRINE 5 MG TAB PO SCH (06:00)
[2016-11-28 06:15] LABS: BICARBONATE 29.5 MEQ/L (21.0-32.0); POTASSIUM 4.7 MEQ/L (3.5-5.1)
[2016-11-28] MEDS: POLYETHYLENE GLYCOL 17 GM PKG PO SCH (09:00)
[2016-11-28] MEDS: VITAMIN B CMPLX/VITC/FOLIC AC CAP PO SCH (09:00)
[2016-11-28] MEDS: MAGNESIUM HYDROXIDE SUSP 30 ML CUP PO SCH (09:00)
[2016-11-28] MEDS ORDERED: SODIUM CHLORIDE 0.9% FLUSH 10 ML FLUSH IV FLUSH SCH (09:00)
[2016-11-28] MEDS: DOCUSATE SODIUM 100 MG CAP PO SCH (09:42)
[2016-11-28] MEDS: AMIODARONE 200 MG TAB PO SCH (09:42)
[2016-11-28] MEDS: MULTIVITAMINS/MINERALS THERAPEUTIC TAB PO SCH (09:43)
[2016-11-28] MEDS: ASPIRIN 81 MG CHEW TAB PO SCH (09:43)
[2016-11-28] MEDS: RIFAMPIN 150 MG CAP PO SCH (09:43)
[2016-11-28] MEDS: CALCITRIOL 0.25 MCG CAP PO SCH (09:43)
[2016-11-28] MEDS: FLUTICASONE PROPIONATE 50 MCG/ACT 16 GM NASAL SPRAY NASAL SCH (09:44)
[2016-11-28] MEDS: SODIUM CHLORIDE 0.9% FLUSH 10 ML FLUSH IV FLUSH SCH (09:45)
--- NOTE | 2016-11-28 10:08 | HHI.FF ---
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 Coded Allergies: *MDRO Multi-Drug Resistant Organism (Verified Adverse Reaction, Unknown, ) MRSA PCR screen POSITIVE - 03/13/16 MRSA (blood)-10/29/16 Administer Medication Cubicin 950 mg IV q48H, please give dose early evening Stop Treatment: Jan 27, 2017 Additional Information Additional Medications rifampin 300 mg po BID till Jan 27 Venous access: PICC Line Additional Instructions [x] Peripheral flush and dressing changes per protocol [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 [] May leave port accessed during therapy. [] May leave peripheral site accessed for duration of therapy. [x] If patient has SOB or respiratory distress, check oxygen saturation. If less than 90% or clinical signs of respiratory distress, administer oxygen at 2 L/min. via nasal cannula and notify physician. [x] Anaphylaxis/Reaction orders: * Stop infusion. * Keep IV line open with saline flush. * Notify physician. * Monitor vital signs every 15 minutes until symptoms resolve. * Check Oxygen saturation; Oxygen at 2 L/min. via nasal cannula if less than 90% or clinical signs of respiratory distress. * Administer diphenhydramine (Benadryl) 25 mg IV STAT, (unless patient has received as pre-med). May repeat once, if necessary. * Solu-Cortef 250 mg IVP over 30-60 seconds, use 100 mg vials for each dissolution. * Epinephrine (1mg/1 ml) 0.3 mg subcutaneously or IVP now with any signs of respiratory distress. * Check with physician for new additional pre-med orders if patient is re- challenged or re-treated. [x] May remove PICC line when treatment complete, after confirming with Physician. [x] If the patient is admitted to the hospital, the ED, or transferred via [facility] , complete transfer form including medication reconciliation order sheet. Laboratory Tests Weekly Labs: CBC w/diff, CRP, LFT's (Hepatic function test), SED Rate (labs every Friday, copy to me; please make sure that during his HD days, cubicin dose needs to be given after his HD) Angela Farmer MD Nov 28, 2016 10:08
[2016-11-28] MEDS ORDERED: RIFA300C2 PO (10:11)
[2016-11-28] MEDS ORDERED: AMIO200T PO (11:05)
[2016-11-28] MEDS: DAPTOMYCIN IV SCH (12:57)
[2016-11-28] MEDS: SODIUM CHLORIDE 0.9% IV SCH (12:57)
--- NOTE | 2016-11-28 14:34 | HHI.NPPN ---
Subjective History of Present Illness he had CV surgery Additional Remarks Clinically stable. Review of Systems General Constitutional: Fatigue Cardiovascular Cardiac: Chest Pain Objective Data Data 11/27/16 11/28/16 18:59 06:59 Intake Total 400 ml 240 ml Output Total 3100 ml 0 ml Balance -2700 ml 240 ml Intake Oral 400 ml 240 ml IV Total 0 ml Output Urine Total 0 ml 0 ml Chest Tube Drainage Total 100 ml Hemodialysis 3000 ml # Bowel Movements 0 Vital Signs Date Time Temp Pulse Resp B/P Pulse Ox O2 Delivery O2 Flow Rate FiO2 11/28/16 11:14 84 11/28/16 11:14 98.1 84 18 109/62 98 11/28/16 11:00 84 11/28/16 10:00 84 11/28/16 09:00 82 11/28/16 08:00 74 11/28/16 07:45 73 11/28/16 07:45 98.3 76 16 117/66 99 11/28/16 07:45 98.3 73 18 117/66 96 11/28/16 06:00 77 11/28/16 05:00 80 11/28/16 04:00 84 11/28/16 03:40 98.0 85 16 117/68 94 11/28/16 03:00 85 11/28/16 02:00 82 11/28/16 01:00 85 11/28/16 00:00 91 11/27/16 23:00 92 11/27/16 23:00 97.6 76 16 140/87 97 11/27/16 22:00 74 11/27/16 21:00 76 11/27/16 20:30 97.7 76 16 130/71 95 11/27/16 20:00 80 11/27/16 19:00 84 11/27/16 18:03 78 11/27/16 17:31 86 11/27/16 16:15 96 11/27/16 16:15 98.3 78 18 133/84 97 11/27/16 15:29 60 -: 11/28/16 0515 11/28/16 0515 Physical Exam General Appearance: Well Developed, Comfortable Eyes Eye Exam: Pupils Equal, Pupils Reactive Ears & Nose Ears & Nose Exam: Nasal Mucosa [place] Throat Throat Exam: Oral Mucosa [place] & Moist Neck Neck Exam: Trachea Midline Pulmonary Resp Exam: Breath Sounds Equal, No Distress Cardiology CV Exam: Irregular, Arrhythmia, Murmur Gastrointestinal/Abdomen GI Exam: Soft, Non-Tender, Bowel Sounds Present, Non-Distended Musculoskeletal MS Exam: Normal Tone Integumentary Skin Exam: Warm, Dry Extremeties Extremities Exam: No Edema, Pedal Pulses Palpable Neurologic Neuro Exam: Alert, Awake, Oriented, Speech Clear, Moving All Extremities, Workshop Manager Equal, No Focal Deficits Psychiatric Psych Exam: Appropriate Responses Assessment/Plan Problem List: (1) ESRD (end stage renal disease) on dialysis Plan: continue dialysis MWF. HD stable MRSA infection on Daptomycin Continue to monitor fluid and electrolyte status. (2) 3-vessel coronary artery disease Plan: s/p CABG mycotic aneurysm repaired (3) Anemia Plan: Epogen with dialysis. Monitor. Araceli Freire MD Nov 28, 2016 14:34
--- NOTE | 2016-11-28 15:50 | PD.CAR.PN ---
CVT Progress Note Subjective/Hospital Course: 11/16: 71 years old male with ESRD on HD who was brought to ER from dialysis where he suddenly became unresponsive. On scene providers performed CPR for approximately 5 minutes. He underwent defibrillation twice and had a return of spontaneous circulation per ER documentation. The patient states he felt sleepy this morning and believes he may have actually fell asleep during dialysis. He does not recall the actual loss of consciousness. EMS reports that on scene he had a blood pressure 127/80 and a heart rate of 110 sinus tach. Occasional PVCs were observed. FS Glucose was 168. The dialysis session was about 50% complete when he became unresponsive and then was sent to the ER. On evaluation in the ER patient was completely asymptomatic without any chest pain. He was admitted by [facility] and was evaluated by Dr. Craig from cardiology. Patient was initiated on amiodarone drip and subsequently proceeded for VQ scan where he had another episode of V. tach arrest, CODE BLUE cardiac arrest code was activated. Patient was shocked out of the V. tach had about 2.5 minutes of CPR at that time. Subsequently he was transported to [facility] where I evaluated him immediately following his arrival. At that time patient was awake and alert and denied any chest pain or shortness of breath. He says that he passed out and does not recollect any other events. Shortly following patient's arrival to ICU he had a third episode where he became unresponsive and went into V. tach arrest. CPR/ACLS protocol initiated, patient converted spontaneously to sinus rhythm prior to defibrillation and became responsive. He denied any chest pain or shortness of breath following regaining of consciousness. Patient was given amiodarone 300 mg IV bolus following third episode of V. tach along with 2 g of magnesium sulfate IV push as well as 1 g of calcium chloride.. Patient is being treated with antibiotics for L1 osteomyelitis/ epidural abscess with rifampin and IV vancomycin. 11/17:cardiac cath by Dr. Bucio last night. 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 on heparin and NTG gtt following cardiac cath 11/18 Dr Pretty spoke with Dr Novak ID , agree pt is high risk, however with 2 episodes of Vtach arrest / requiring resuscitation / pt is even higher risk without revascularization. Dr Pretty spoke in depth with pt today , he will receive dialysis on / and is now scheduled for CABG on 11/20 will dc IV amiodarone and change to po amiodarone 11/19 remain on heparin gtt, no fevers, receiving dialysis today no ectopy noted sinus julio c, will decrease dose of amiodarone for surgery in am 11/20 surgery: CABG x 5, NUNEZ to LAD, SVG to AM, SVG to LPDA, SVG to OM2, SVG to Diag , EVH, LEONARD crystalloid 1000cc, 1900cc cell saver, 2500cc EBL, one unit plt extubated after surgery 11/21 on Maikol gtt during the night on nasal cannula , received small fluid bolus last pm hold on dialysis today 06/20 labile BP / resume in am / and re-eval later today K + 5.1 aggressive pulm toileting , OOB ambulate leave in ICU today 11/22 Bp still labile, despite giving one unit PRBC with dialysis weaning Maikol gtt slowly, NO BB due to labile and low BP add midodrine to facilitate weaning off Maikol leave chest tubes in , drained 450cc serous bloody drainage 11/23 Doing better Off of Maikol Maintain CT Ambulate Transfer [facility] 11/[address] continue to drain Received PRBC yesterday Monitor CBC 11/25 still having large amount of serous drainage from chest tube will add colchicine and decadron had dialysis today / removed 3Kg still edematous in the legs remains in NSR + BM, place to water seal 11/26 decrease in chest tube drainage 140cc/ 12hrs leave chest tube in today on room air , still + balance, for dialysis tommorow elevate legs while in bed and in chair continue Decadron and colchicine 11/27 chest tube drained 130cc serous drainage / will dc after dialysis today discussed with ID, will need IV antibiotics for home will need to have Nephro eval for outpt dialysis _Thur-Sat will he is IV antibiotics plan for possible dc in am 11/28 stable for dc home with HHC, he will receive antibiotics with dialysis and one day with HHC/ s/p Picc line insertion BP stable off midodrine, will still hold on starting BB Objective: Vital Signs Date Time Temp Pulse Resp B/P Pulse Ox O2 Delivery O2 Flow Rate FiO2 11/28/16 11:14 84 11/28/16 11:14 98.1 84 18 109/62 98 11/28/16 11:00 84 11/28/16 10:00 84 11/28/16 09:00 82 11/28/16 08:00 74 11/28/16 07:45 73 11/28/16 07:45 98.3 76 16 117/66 99 11/28/16 07:45 98.3 73 18 117/66 96 11/28/16 06:00 77 11/28/16 05:00 80 11/28/16 04:00 84 11/28/16 03:40 98.0 85 16 117/68 94 11/28/16 03:00 85 11/28/16 02:00 82 11/28/16 01:00 85 11/28/16 00:00 91 11/27/16 23:00 92 11/27/16 23:00 97.6 76 16 140/87 97 11/27/16 22:00 74 11/27/16 21:00 76 11/27/16 20:30 97.7 76 16 130/71 95 11/27/16 20:00 80 11/27/16 19:00 84 11/27/16 18:03 78 11/27/16 17:31 86 11/27/16 16:15 96 11/27/16 16:15 98.3 78 18 133/84 97 Labs: Laboratory Tests Test 11/28/16 05:15 White Blood Count 6.8 TH/MM3 (4.0-11.0) Red Blood Count 2.56 MIL/MM3 (4.50-5.90) Hemoglobin 8.0 GM/DL (13.0-17.0) Hematocrit 24.4 % (39.0-51.0) Mean Corpuscular Volume 95.0 FL (80.0-100.0) Mean Corpuscular Hemoglobin 31.3 PG (27.0-34.0) Mean Corpuscular Hemoglobin 33.0 % Concent (32.0-36.0) Red Cell Distribution Width 19.8 % (11.6-17.2) Platelet Count 271 TH/MM3 (150-450) Mean Platelet Volume 6.8 FL (7.0-11.0) Neutrophils (%) (Auto) 68.4 % (16.0-70.0) Lymphocytes (%) (Auto) 15.5 % (9.0-44.0) Monocytes (%) (Auto) 10.2 % (0.0-8.0) Eosinophils (%) (Auto) 4.4 % (0.0-4.0) Basophils (%) (Auto) 1.5 % (0.0-2.0) Neutrophils # (Auto) 4.6 TH/MM3 (1.8-7.7) Lymphocytes # (Auto) 1.1 TH/MM3 (1.0-4.8) Monocytes # (Auto) 0.7 TH/MM3 (0-0.9) Eosinophils # (Auto) 0.3 TH/MM3 (0-0.4) Basophils # (Auto) 0.1 TH/MM3 (0-0.2) CBC Comment DIFF FINAL Differential Comment Sodium Level 134 MEQ/L (136-145) Potassium Level 4.7 MEQ/L (3.5-5.1) Chloride Level 98 MEQ/L (98-107) Carbon Dioxide Level 29.5 MEQ/L (21.0-32.0) Anion Gap 7 MEQ/L (5-15) Blood Urea Nitrogen 28 MG/DL (7-18) Creatinine 7.53 MG/DL (0.60-1.30) Estimat Glomerular Filtration 7 ML/MIN (>89) Rate Random Glucose 99 MG/DL (74-106) Calcium Level 9.5 MG/DL (8.5-10.1) Result Diagram: 11/28/1651411/28/1615 Telemetry: NSR (1) Aortic stenosis Plan: Dkys-as-tmypbobm. 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/ scattered neutrophils (5) Cardiopulmonary arrest with successful resuscitation Plan: s/p (6) Elevated troponin I level (7) Non-STEMI (non-ST elevated myocardial infarction) Plan: prob secondary to diagonal occlusion (8) First degree AV block (9) S/P CABG x 5 Plan: on ASA, statin , No BB ( labile BP) pulm toileting nebs ezpap , acapellla OOB ambulate ok to dc home with HHC eval for discharge in am (10) ESRD (end stage renal disease) on dialysis Plan: dialysis today Problem Qualifiers (1) Aortic stenosis: Qualified Code: I35.0 - Aortic valve stenosis, unspecified etiology Katie Riojas Nov 28, 2016 15:50 Katie Riojas Nov 28, 2016 15:50
--- NOTE | 2016-11-28 16:01 | HHI.PR ---
Review of Systems Constitutional Constitutional: Fatigue (improved), Weakness Constitutional Remarks Improving General weakness, well-controlled back pain, postnasal drip,, 10 systems reviewed otherwise negative Pulmonary Respiratory: Coughing (occasional improved) Chest/Breast Chest/Breast: Tenderness GI/Abdomen GI/Abdominal Exam: Constipation (resolved, ) Musculoskeletal MS: Weakness Psychiatric Psychiatric: Normal Mood Vitals/Results Intake & Output 11/27/16 11/27/16 11/28/16 15:00 23:00 07:00 Intake Total 400 ml 240 ml Output Total 3000 ml 100 ml 0 ml Balance -3000 ml 300 ml 240 ml Intake Oral 400 ml 240 ml IV Total 0 ml Output Urine Total 0 ml 0 ml Chest Tube Drainage Total 100 ml Hemodialysis 3000 ml # Bowel Movements 0 Vital Signs Vital Signs Date Time Temp Pulse Resp B/P Pulse Ox O2 Delivery O2 Flow Rate FiO2 11/28/16 11:14 84 11/28/16 11:14 98.1 84 18 109/62 98 11/28/16 11:00 84 11/28/16 10:00 84 11/28/16 09:00 82 11/28/16 08:00 74 11/28/16 07:45 73 11/28/16 07:45 98.3 76 16 117/66 99 11/28/16 07:45 98.3 73 18 117/66 96 11/28/16 06:00 77 11/28/16 05:00 80 11/28/16 04:00 84 11/28/16 03:40 98.0 85 16 117/68 94 11/28/16 03:00 85 11/28/16 02:00 82 11/28/16 01:00 85 11/28/16 00:00 91 11/27/16 23:00 92 11/27/16 23:00 97.6 76 16 140/87 97 11/27/16 22:00 74 11/27/16 21:00 76 11/27/16 20:30 97.7 76 16 130/71 95 11/27/16 20:00 80 11/27/16 19:00 84 11/27/16 18:03 78 11/27/16 17:31 86 11/27/16 16:15 96 11/27/16 16:15 98.3 78 18 133/84 97 CBC/BMP: 11/28/16 0515 11/28/16 0515 Lab Results Laboratory Tests Test 11/28/16 05:15 White Blood Count 6.8 TH/MM3 Red Blood Count 2.56 MIL/MM3 Hemoglobin 8.0 GM/DL Hematocrit 24.4 % Mean Corpuscular Volume 95.0 FL Mean Corpuscular Hemoglobin 31.3 PG Mean Corpuscular Hemoglobin 33.0 % Concent Red Cell Distribution Width 19.8 % Platelet Count 271 TH/MM3 Mean Platelet Volume 6.8 FL Neutrophils (%) (Auto) 68.4 % Lymphocytes (%) (Auto) 15.5 % Monocytes (%) (Auto) 10.2 % Eosinophils (%) (Auto) 4.4 % Basophils (%) (Auto) 1.5 % Neutrophils # (Auto) 4.6 TH/MM3 Lymphocytes # (Auto) 1.1 TH/MM3 Monocytes # (Auto) 0.7 TH/MM3 Eosinophils # (Auto) 0.3 TH/MM3 Basophils # (Auto) 0.1 TH/MM3 CBC Comment DIFF FINAL Differential Comment Sodium Level 134 MEQ/L Potassium Level 4.7 MEQ/L Chloride Level 98 MEQ/L Carbon Dioxide Level 29.5 MEQ/L Anion Gap 7 MEQ/L Blood Urea Nitrogen 28 MG/DL Creatinine 7.53 MG/DL Estimat Glomerular Filtration 7 ML/MIN Rate Random Glucose 99 MG/DL Calcium Level 9.5 MG/DL Physical Exam General General Appearance: Well Developed, Comfortable Eyes Eye Exam: Pupils Equal, Pupils Reactive Ears & Nose Ears & Nose Exam: Nasal Mucosa [place] Throat Throat Exam: Oral Mucosa [place] & Moist Neck Neck Exam: Trachea Midline Pulmonary Resp Exam: Breath Sounds Equal, No Distress Resp Remarks Chest tubes in place Cardiology CV Exam: Irregular, Arrhythmia, Murmur Gastrointestinal/Abdomen GI Exam: Soft, Non-Tender, Bowel Sounds Present, Non-Distended Musculoskeletal MS Exam: Normal Tone Integumentary Skin Exam: Warm, Dry Extremeties Extremities Exam: No Edema, Pedal Pulses Palpable Extremeties Remarks AV fistula both upper extremities Neurologic Neuro Exam: Alert, Awake, Oriented, Speech Clear, Moving All Extremities, Employment Office Clerk Equal, No Focal Deficits Psychiatric Psych Exam: Appropriate Responses VTE Prophylaxis VTE Prophylaxis Meds: Heparin Assessment/Plan Assessment/Plan Assessment Postnasal drip , improved Admitted following Syncope Status post cardiac arrest 3 Non-ST elevation myocardial infarction Status post cardiac catheterization 11/17/16 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 Status post CABG 5 on 11/20/16 Postoperative hypotension on pressors L1 osteomyelitis with back pain, abx per ID End-stage renal disease Chronic hyperphosphatemia, today's phosphate level is normal History of anemia, diabetes, hypertension Anemia CKD, with hyperkalemia Valvular disease Management Discharge home today With home health care abx per ID, currently on intravenous daptomycin and oral rifampin, stop date 04/04 IV antibiotics at home Wound care by home health Discussed with patient Discussed with nurse Follow-up with cardiology and cardiac surgery Continue dialysis as scheduled 45 minutes Discussed Condition with: Patient Discharge Minutes: 40 Puma Recinos MD Nov 28, 2016 16:01
== END 2016-11-28 15:01 | disposition home health service (06) | DRG 233 ==
LOC: NEPC 12:31 → NEDA 15:40 → N03B 17:20 → HCVR 20:49 → HCIN 11-23 12:54
PROVIDERS: ADMIT Specialist; ATTEND Specialist
PROC: 4A023N7 Measurement of Cardiac Sampling and Pressure, Left Heart, Percutaneous Approach (ICD-10-PCS; 2016-11-16)
PROC: B41F1ZZ Fluoroscopy of Right Lower Extremity Arteries using Low Osmolar Contrast (ICD-10-PCS; 2016-11-16)
PROC: B2111ZZ Fluoroscopy of Multiple Coronary Arteries using Low Osmolar Contrast (ICD-10-PCS; 2016-11-16)
PROC: B2151ZZ Fluoroscopy of Left Heart using Low Osmolar Contrast (ICD-10-PCS; 2016-11-16)
PROC: 5A2204Z Restoration of Cardiac Rhythm, Single (ICD-10-PCS; 2016-11-16)
PROC: 30233N1 Transfusion of Nonautologous Red Blood Cells into Peripheral Vein, Percutaneous Approach (ICD-10-PCS; 2016-11-17)
PROC: 5A1D60Z (ICD-10-PCS; 2016-11-19)
PROC: 02100Z9 Bypass Coronary Artery, One Artery from Left Internal Mammary, Open Approach (ICD-10-PCS; 2016-11-20)
PROC: 06BQ4ZZ Excision of Left Saphenous Vein, Percutaneous Endoscopic Approach (ICD-10-PCS; 2016-11-20)
PROC: 0W9B3ZZ Drainage of Left Pleural Cavity, Percutaneous Approach (ICD-10-PCS; 2016-11-20)
PROC: 5A1221Z Performance of Cardiac Output, Continuous (ICD-10-PCS; 2016-11-20)
PROC: B246ZZ4 Ultrasonography of Right and Left Heart, Transesophageal (ICD-10-PCS; 2016-11-20)
PROC: 30233R1 Transfusion of Nonautologous Platelets into Peripheral Vein, Percutaneous Approach (ICD-10-PCS; 2016-11-20)
PROC: 021309W Bypass Coronary Artery, Four or More Arteries from Aorta with Autologous Venous Tissue, Open Approach (ICD-10-PCS; principal; 2016-11-20 11:53)
PROC: 02HV33Z Insertion of Infusion Device into Superior Vena Cava, Percutaneous Approach (ICD-10-PCS; 2016-11-27)
DX: I47.2 Ventricular tachycardia (principal); I21.4 Non-ST elevation (NSTEMI) myocardial infarction; I46.2 Cardiac arrest due to underlying cardiac condition; G06.1 Intraspinal abscess and granuloma; N18.6 End stage renal disease; M46.25 Osteomyelitis of vertebra, thoracolumbar region; B49 Unspecified mycosis; M46.26 Osteomyelitis of vertebra, lumbar region; J90 Pleural effusion, not elsewhere classified; E87.1 Hypo-osmolality and hyponatremia; I25.119 Atherosclerotic heart disease of native coronary artery with unspecified angina pectoris; I48.92 Unspecified atrial flutter; I25.41 Coronary artery aneurysm; I35.0 Nonrheumatic aortic (valve) stenosis; M46.44 Discitis, unspecified, thoracic region; I44.0 Atrioventricular block, first degree; I95.81 Postprocedural hypotension; E11.22 Type 2 diabetes mellitus with diabetic chronic kidney disease; I48.91 Unspecified atrial fibrillation; E78.5 Hyperlipidemia, unspecified; D63.8 Anemia in other chronic diseases classified elsewhere; B95.62 Methicillin resistant Staphylococcus aureus infection as the cause of diseases classified elsewhere; I49.01 Ventricular fibrillation; K59.00 Constipation, unspecified; E83.39 Other disorders of phosphorus metabolism; E87.6 Hypokalemia; R09.82 Postnasal drip; E87.5 Hyperkalemia; Z82.49 Family history of ischemic heart disease and other diseases of the circulatory system; Z86.14 Personal history of Methicillin resistant Staphylococcus aureus infection; Z99.2 Dependence on renal dialysis
CPT/HCPCS: 36430; 36569; 71010; 71250; 72141; 72146; 72148; 76937; 78580; 80048; 80053; 82310; 82435; 82550; 82565; 82947; 82948; 83036; 83735; 83880; 84100; 84132; 84295; 84484; 84520; 85014; 85018; 85025; 85027; 85576; 85610; 85730; 86140; 86850; 86900; 86901; 86920; 87015; 87040; 87070; 87102; 87116; 87176; 87205; 87206; 87641; 88304; 88312; 90935; 93005; 93306; 93318; 93458; 93880; 93970; 93998; 94002; 94010; 94150; 94640; 94664; 94667; 94668; 96374; A9540; C1760; C1769; C1893; G0269; J0131; J0171; J0282; J0461; J0692; J0878; J1100; J1642; J1644; J1815; J2250; J2370; J2405; J2440; J2720; J2930; J3010; J3370; J3480; J7030; J7050; J7060; P9016; P9035; P9045; P9047; Q9967

== ENCOUNTER 2016-12-20 13:19 | Inpatient (IN) | payer MEDICARE, BC ==
[~2016-12-20] VITALS: Ht 182.9 cm; Wt 97.6 kg
[~2016-12-20 13:19] MED LIST changes: +AMIO200T PO; +ASPI325T PO; +COLA100C PO; -COLA100C3 PO; -EPINEPHrine HCL (1:10,000) 1 MG/10 ML SYRINGE IV ONE; +FISH100020 PO; -RENACAP2 PO; +RENATAB5 PO; -RIFA150C2 PO; +RIFA300C2 PO; +TEMA30CA PO
[2016-12-20 13:21] VITALS: BP 144/69; PULSE 107; RESP 17; TEMP 97.8; O2SAT 88
--- NOTE | 2016-12-20 13:47 | PD ---
HPI Chief Complaint: Respiratory Symptoms Time Seen by Provider: 13:39 Travel History International Travel<30 days: No Contact w/Intl Traveler<30days: No Traveled to known affect area: No History of Present Illness HPI 71- year old male presents to the ED due to shortness of breath with activity. The patient was seen by Dr. Pretty yesterday and was told that he had crackles in his lungs. The patient was scheduled for a CXR today. However, due to his SOB his home health nurse decided it would be better if he came to the ED instead. The patient reports that he had a 5- way CABG on October 21, 2016. He denies any chest pain or shortness of breath while at rest in his bed. He denies any fever, chills, nausea, vomiting, or diarrhea. He reports that he takes ASA and amiodarone, and undergoes dialysis. PFSH Past Medical History Hx Anticoagulant Therapy: Yes (ASPIRIN 325MG) Anemia: Yes Arthritis: Yes (RIGHT SHOULDER) Autoimmune Disease: No Anxiety: No Depression: No Heart Rhythm Problems: Yes (VF TODAY) Cancer: No Cardiovascular Problems: Yes High Cholesterol: Yes Congestive Heart Failure: No Diabetes: Yes (PRE-DIABETIC) Dialysis: Yes (TUES, THURS, SAT.) Diminished Hearing: No Endocrine: Yes Gastrointestinal Disorders: Yes (umbilical hernia) GERD: No Genitourinary: Yes Hepatitis: No Hiatal Hernia: No Hypertension: Yes (HISTORY) Immune Disorder: No Implanted Vascular Access Dvce: No Musculoskeletal: Yes Neurologic: No Psychiatric: No Reproductive: No Respiratory: No Immunizations Current: Yes Renal Failure: Yes ( ) Sleep Apnea: No Thyroid Disease: No Past Surgical History Abdominal Surgery: No (UMBILICAL HERNIA REPAIR/ PERITONEAL DIALYSIS) Cardiac Surgery: No Ear Surgery: No Endocrine Surgery: No Eye Surgery: No Genitourinary Surgery: No Gynecologic Surgery: No Oral Surgery: No Pacemaker: No Thoracic Surgery: No Other Surgery: Yes (left arm dialysis shunt) Social History Alcohol Use: Yes (Rarely) Tobacco Use: No Substance Use: No Allergies-Medications (Allergen,Severity, Reaction): Coded Allergies: *MDRO Multi-Drug Resistant Organism (Verified Adverse Reaction, Unknown, ) MRSA PCR screen POSITIVE - 03/13/16 MRSA (blood)-10/29/16 Reported Meds & Prescriptions Reported Meds & Active Scripts Active Amiodarone (Amiodarone HCl) 200 Mg Tab 200 Mg PO Q12HR Ask certified pedorthotist if refills needed beyond 3 months Velphoro (Sucroferric Oxyhydroxide) 500 Mg Chew 500 Mg CHEW TIDPC Percocet (Oxycodone-Acetaminophen) 5-325 mg Tab 1 Tab PO Q6H PRN Reported Rifampin 300 Mg Cap 300 Mg PO DAILY Temazepam 30 Mg Cap 30 Mg PO HS PRN Vielka-Jitendra (B-Complex W/ C & Folic Acid) 1 Tab 1 Tab PO DAILY Aspirin 325 Mg Tab 325 Mg PO DAILY Colace (Docusate Sodium) 100 Mg Capsule 100 Mg PO DAILY Sensipar (Cinacalcet) 60 Mg Tab 60 Mg PO DAILY@1600 Calcitriol 0.5 Mcg Cap 0.5 Mcg PO DAILY Review of Systems General / Constitutional: No: Fever, Chills, Weight Gain, Weight Loss, Other Eyes: No: Diploplia, Blurred Vision, Photophobia, Drainage, Redness, Foreign Body Sensation, Pain, Tearing, Blind Spots, Visual changes, Blindness, Other HENT: No: Headaches, Vertigo, Lightheadedness, Sore Throat, Rhinitis, Rhinorrhea, Congestion, Nosebleed, Neck Stiffness, Neck Pain, Masses, Gingival Bleeding, Dental Difficulties, Ear Discharge, Earache, Other Cardiovascular: No: Chest Pain or Discomfort, Palpitations, Irregular Rhythm, Tachycardia, Diaphoresis, Syncope, Dyspnea on exertion, Varicosities, Edema, Cyanosis, Varicosities, Phlebitis, Claudication, Other Respiratory: Positive: Shortness of Breath, No: Cough, Wheezing, Sneezing, Orthopnea, Hemoptysis, Stridor, Night Sweats, Pleuritic Pain, Other Gastrointestinal: No: Nausea, Vomiting, Diarrhea, Abdominal Pain, Hematemesis, Hematochezia, Constipation, Changes in Bowel Habits, Indigestion, Dysphagia, Loss of Appetite, Other Genitourinary: No: Urgency, Frequency, Dysuria, Nocturia, Hematuria, Decreased Urinary Output, Oliguria, Hesitancy, Dribbling, Incontinence, Pelvic Pain, Flank Pain, Dyspareunia, Discharge, Dysmenorrhea, Menorrhagia, Metorrhagia, Vaginal Bleeding, Other Musculoskeletal: No: Myalgias, Arthralgias, Limited ROM, Weakness, Cramping, Edema, Pain, Atrophy, Other Skin: No Rash, No Itching, No Dryness, No Lumps, No Hives, No Change in Pigmentation, No Change in nails, No Alopecia, No Lesions, No Breast Lumps, No Breast Tenderness, No Breast Swelling, No Other Neurologic: No: Weakness, Dizziness, Syncope, Focal Abnormalities, Coordination Problem, Tremor, Ataxia, Headache, Change in Mentation, Slurred Speech, Paresthesia, Incontinence, Seizures, Sensory Disturbance, Other Psychiatric: No: Anxiety, Depression, Suicidal Ideations, Disorder of Thought, Mood Disorder, Substance Abuse, Homicidal Ideation, Other Endocrine: No: Heat Intolerance, Cold Intolerance, Polyuria, Polydipsia, Other Hematologic/Lymphatic: No: Easy Bruising, Lymph Node Enlargement, Other Physical Exam Narrative GENERAL: SKIN: Warm and dry. HEAD: Atraumatic. Normocephalic. EYES: Pupils equal and round. No scleral icterus. No injection or drainage. ENT: No nasal bleeding or discharge. Mucous membranes pink and moist. NECK: Trachea midline. No JVD. CARDIOVASCULAR: Regular rate and rhythm. RESPIRATORY: Crackles bilaterally. No accessory muscle use. Breath sounds equal bilaterally. GASTROINTESTINAL: Abdomen soft, non-tender, nondistended. Hepatic and splenic margins not palpable. MUSCULOSKELETAL: Extremities without clubbing, cyanosis, or edema. No obvious deformities. NEUROLOGICAL: Awake and alert. No obvious cranial nerve deficits. Motor grossly within normal limits. Five out of 5 muscle strength in the arms and legs. Normal speech. PSYCHIATRIC: Appropriate mood and affect; insight and judgment normal. Data Data Last Documented VS Vital Signs Date Time Temp Pulse Resp B/P Pulse Ox O2 Delivery O2 Flow Rate FiO2 12/20/16 15:54 102 20 148/71 97 Nasal Cannula 3 12/20/16 13:21 97.8 Orders Complete Blood Count With Diff (12/20/16 13:47) Comprehensive Metabolic Panel (12/20/16 13:47) ^ Insert Iv (12/20/16 13:47) Chest, Single Ap (12/20/16 ) B-Type Natriuretic Peptide (12/20/16 13:47) Troponin I (12/20/16 13:47) Electrocardiogram (12/20/16 ) Labs Laboratory Tests Test 12/20/16 14:05 White Blood Count 11.4 TH/MM3 Red Blood Count 2.95 MIL/MM3 Hemoglobin 9.2 GM/DL Hematocrit 28.2 % Mean Corpuscular Volume 95.9 FL Mean Corpuscular Hemoglobin 31.2 PG Mean Corpuscular Hemoglobin 32.6 % Concent Red Cell Distribution Width 18.8 % Platelet Count 515 TH/MM3 Mean Platelet Volume 7.0 FL Neutrophils (%) (Auto) 79.4 % Lymphocytes (%) (Auto) 6.4 % Monocytes (%) (Auto) 8.7 % Eosinophils (%) (Auto) 4.4 % Basophils (%) (Auto) 1.1 % Neutrophils # (Auto) 9.1 TH/MM3 Lymphocytes # (Auto) 0.7 TH/MM3 Monocytes # (Auto) 1.0 TH/MM3 Eosinophils # (Auto) 0.5 TH/MM3 Basophils # (Auto) 0.1 TH/MM3 CBC Comment DIFF FINAL Differential Comment Sodium Level 136 MEQ/L Potassium Level 3.7 MEQ/L Chloride Level 96 MEQ/L Carbon Dioxide Level 29.8 MEQ/L Anion Gap 10 MEQ/L Blood Urea Nitrogen 30 MG/DL Creatinine 5.40 MG/DL Estimat Glomerular Filtration 11 ML/MIN Rate Random Glucose 111 MG/DL Calcium Level 11.3 MG/DL Total Bilirubin 0.3 MG/DL Aspartate Amino Transf 31 U/L (AST/SGOT) Alanine Aminotransferase 21 U/L (ALT/SGPT) Alkaline Phosphatase 83 U/L Troponin I 0.04 NG/ML B-Type Natriuretic Peptide 686 PG/ML Total Protein 6.3 GM/DL Albumin 2.3 GM/DL [facility] Medical Decision Making Medical Screen Exam Complete: Yes Emergency Medical Condition: Yes Medical Record Reviewed: Yes (pt was admitted recently and had a CABG by Dr. Pretty on 11/20.) Interpretation(s) EKG: nsr, no st changes mild luekocytosis anemia thrombocytosis renal failure bnp 686 Last 24 hours Impressions Chest X-Ray 12/20/16 0000 Signed Impressions: Service Date/Time: Tuesday, December 20, 2016 14:21 - CONCLUSION: 1. Pulmonary avascular congestion pattern with mild bilateral lower lobe airspace disease and small pleural effusions. Kane Chapin MD Differential Diagnosis CHF, pulmonary embolism, pleural effusion, pneumonia Narrative Course This is a 71-year-old male who had a CABG about a month ago who presents to the emergency department with increasing shortness of breath. On exam he appears volume up. He was placed on a monitor and an IV was established. He is anemic. BNP is elevated and chest x-ray demonstrates pulmonary congestion. I don't see a discrete large pleural effusion amenable to thoracentesis. I think he would benefit from admission and expedited dialysis. He may require home oxygen. Case was discussed with Dr. Pope's team who came to see the patient in the ER and the patient will be admitted to [facility]. Diagnosis Primary Impression: Pulmonary edema Qualified Code: J81.0 - Acute pulmonary edema Admitting Information Admitting Physician Requests: Admit Amira Rocha MD Dec 20, 2016 13:47
[2016-12-20] MEDS ORDERED: RIFA300C2 PO (14:21)
[2016-12-20 14:32] LABS: AUTOMATED NEUTROPHIL # 9.1 TH/MM3 (1.8-7.7); BASOPHIL # 0.1 TH/MM3 (0-0.2); BASOPHIL % 1.1 % (0.0-2.0); EOSINOPHIL # 0.5 TH/MM3 (0-0.4); EOSINOPHIL % 4.4 % (0.0-4.0); HEMATOCRIT 28.2 % (39.0-51.0); HEMO FLAGS DIFF FINAL; LYMPH % 6.4 % (9.0-44.0); LYMPHOCYTE # 0.7 TH/MM3 (1.0-4.8); MEAN CELL VOLUME 95.9 FL (80.0-100.0); MEAN CORPUSCULAR HEMOGLOBIN 31.2 PG (27.0-34.0); MEAN CORPUSCULAR HGB CONC 32.6 % (32.0-36.0); MONO % 8.7 % (0.0-8.0); NEUT % 79.4 % (16.0-70.0); PLATELET COUNT 515 TH/MM3 (150-450); RED BLOOD COUNT 2.95 MIL/MM3 (4.50-5.90); RED CELL DISTRIBUTION WIDTH 18.8 % (11.6-17.2); WHITE BLOOD COUNT 11.4 TH/MM3 (4.0-11.0)
[2016-12-20 14:54] LABS: ALT (GPT) 21 U/L (12-78); ANION GAP 10 MEQ/L (5-15); AST (GOT) 31 U/L (15-37); BICARBONATE 29.8 MEQ/L (21.0-32.0); BLOOD UREA NITROGEN 30 MG/DL (7-18); CHLORIDE 96 MEQ/L (98-107); GLOMERULAR FILTRATION RATE 11 ML/MIN (>89); POTASSIUM 3.7 MEQ/L (3.5-5.1); SODIUM (NA) 136 MEQ/L (136-145)
[2016-12-20 14:58] LABS: ALKALINE PHOSPHATASE 83 U/L (45-117); TOTAL BILIRUBIN ADULT 0.3 MG/DL (0.2-1.0)
--- NOTE | 2016-12-20 14:59 | RADRPT ---
EXAM DATE/TIME: 12/20/2016 14:21 [facility] COMPARISON: CHEST SINGLE AP, November 27, 2016, 15:48. INDICATIONS : Shortness of breath, low oxygen, low engery. Chest X-ray at Doctor's office indicated fluid in lungs. MEDICAL HISTORY : None. SURGICAL HISTORY : CABG. ENCOUNTER: Initial ACUITY: 1 day PAIN SCORE: 0/10 LOCATION: Bilateral chest FINDINGS: Right-sided PICC line with tip now in the central SVC. Bilateral lower lung zone airspace disease and associated small pleural effusions. Cardiomediastinal contours are stable. Central pulmonary vascula rity is indistinct. CONCLUSION: 1. Pulmonary avascular congestion pattern with mild bilateral lower lobe airspace disease and small p leural effusions. Kane Chapin MD on December 20, 2016 at 14:55 Board Certified Radiologist. This report was verified electronically.
[2016-12-20 15:54] VITALS: BP 148/71; PULSE 102; RESP 20; O2SAT 97
--- NOTE | 2016-12-20 16:11 | PD.CAR.PN ---
CVT Progress Note Subjective/Hospital Course: 71/ male admitted november 16, discharged november 28 s/p 1) Cardiopulmonary arrest with successful resuscitation (2) CAD (coronary artery disease) (3) Ventricular fibrillation (4) Aortic stenosis (5) 3-vessel coronary artery disease (6) Non-STEMI (non-ST elevated myocardial infarction) (7) Anemia (8) Diabetes (9) S/P CABG x 5 7 (10) Discitis/ dc home with IV antibiotics (11) ESRD on dialysis seen yesterday in office for follow up, c/o of shortness of breath / 02 sat 88 % on room air pt did have to right lower lobe crackles , no fever or chills pt instructed to continue with his dialysis yesterday afternoon, obtain CXR first thing this am , we did recieve a call from [facility], that his 02 sat 86-88 %, instead of getting outside CXR, instructed to come to ed to eval for right pleural effusion vs right lower lobe PNA he has been continued on IV cubicin, and po rifampin at home Objective: GENERAL: SKIN: Warm and dry. sternal incision intact and well approximated HEAD: Normocephalic. EYES: No scleral icterus. No injection or drainage. NECK: Supple, trachea midline. No JVD or lymphadenopathy. CARDIOVASCULAR: Regular rate and rhythm without murmurs, gallops, or rubs. +_ 2 edema lower ext RESPIRATORY: Breath sounds equal bilaterally. No accessory muscle use. diminsihed in bases , few crackles GASTROINTESTINAL: Abdomen soft, non-tender, nondistended. MUSCULOSKELETAL: No cyanosis, or edema. BACK: Nontender without obvious deformity. No CVA tenderness. Vital Signs Date Time Temp Pulse Resp B/P Pulse Ox O2 Delivery O2 Flow Rate FiO2 12/20/16 15:54 102 20 148/71 97 Nasal Cannula 3 12/20/16 13:50 18 86 Room Air 12/20/16 13:21 97.8 107 17 144/69 88 Labs: Laboratory Tests Test 12/20/16 14:05 White Blood Count 11.4 TH/MM3 (4.0-11.0) Red Blood Count 2.95 MIL/MM3 (4.50-5.90) Hemoglobin 9.2 GM/DL (13.0-17.0) Hematocrit 28.2 % (39.0-51.0) Mean Corpuscular Volume 95.9 FL (80.0-100.0) Mean Corpuscular Hemoglobin 31.2 PG (27.0-34.0) Mean Corpuscular Hemoglobin 32.6 % Concent (32.0-36.0) Red Cell Distribution Width 18.8 % (11.6-17.2) Platelet Count 515 TH/MM3 (150-450) Mean Platelet Volume 7.0 FL (7.0-11.0) Neutrophils (%) (Auto) 79.4 % (16.0-70.0) Lymphocytes (%) (Auto) 6.4 % (9.0-44.0) Monocytes (%) (Auto) 8.7 % (0.0-8.0) Eosinophils (%) (Auto) 4.4 % (0.0-4.0) Basophils (%) (Auto) 1.1 % (0.0-2.0) Neutrophils # (Auto) 9.1 TH/MM3 (1.8-7.7) Lymphocytes # (Auto) 0.7 TH/MM3 (1.0-4.8) Monocytes # (Auto) 1.0 TH/MM3 (0-0.9) Eosinophils # (Auto) 0.5 TH/MM3 (0-0.4) Basophils # (Auto) 0.1 TH/MM3 (0-0.2) CBC Comment DIFF FINAL Differential Comment Sodium Level 136 MEQ/L (136-145) Potassium Level 3.7 MEQ/L (3.5-5.1) Chloride Level 96 MEQ/L (98-107) Carbon Dioxide Level 29.8 MEQ/L (21.0-32.0) Anion Gap 10 MEQ/L (5-15) Blood Urea Nitrogen 30 MG/DL (7-18) Creatinine 5.40 MG/DL (0.60-1.30) Estimat Glomerular Filtration 11 ML/MIN (>89) Rate Random Glucose 111 MG/DL (74-106) Calcium Level 11.3 MG/DL (8.5-10.1) Total Bilirubin 0.3 MG/DL (0.2-1.0) Aspartate Amino Transf 31 U/L (15-37) (AST/SGOT) Alanine Aminotransferase 21 U/L (12-78) (ALT/SGPT) Alkaline Phosphatase 83 U/L (45-117) Troponin I 0.04 NG/ML (0.02-0.05) B-Type Natriuretic Peptide 686 PG/ML (0-100) Total Protein 6.3 GM/DL (6.4-8.2) Albumin 2.3 GM/DL (3.4-5.0) Result Diagram: 12/20/16 1405 12/20/16 1405 Telemetry: NSR Plan: would continue home meds, eval for home 02 pt did recieve his dialysis yesterday still on IV abx at home for discitis, doubt new infection medical management eval for observation status, if pt meets criteria (1) S/P CABG x 5 (2) Diabetes (3) Discitis (4) ESRD (end stage renal disease) on dialysis Katie Riojas Dec 20, 2016 16:11
[2016-12-20] MEDS ORDERED: NALOXONE HCL 0.4 MG/ML AMP IV PRN (16:30)
[2016-12-20] MEDS ORDERED: ONDANSETRON HCL 4 MG/2 ML VIAL IVP PRN (16:30)
[2016-12-20] MEDS ORDERED: MAGNESIUM HYDROXIDE SUSP 30 ML CUP PO PRN (16:30)
[2016-12-20] MEDS ORDERED: SODIUM CHLORIDE 0.9% FLUSH 10 ML FLUSH IV FLUSH PRN ×2 (16:30→18:30)
[2016-12-20] MEDS ORDERED: BISACODYL 10 MG SUPP RECTAL PRN (16:30)
[2016-12-20] MEDS ORDERED: ACETAMINOPHEN 325 MG TAB PO PRN (16:30)
[2016-12-20] MEDS ORDERED: LACTULOSE SYRUP 20 GM/30 ML CUP PO PRN (16:30)
[2016-12-20] MEDS ORDERED: SENNOSIDES 8.6 MG TAB PO PRN (16:30)
--- NOTE | 2016-12-20 17:00 | HHI.HP ---
[facility] Andres Alvarenga MD (Paul) Admission Diagnosis pulmonary edema Diagnoses: Chief Complaint: sob (Latrice Wilson) Travel History International Travel<30 Days: No Contact w/Intl Traveler <30 Da: No Traveled to Known Affected Are: No (Latrice Wilson) History of Present Illness This a pleasant 71-year-old male with significant past medical history of end- stage renal disease on dialysis, recent diagnosis of discitis currently on antibiotics, coronary artery disease. Patient has had recent hospitalizations for lumbar epidural abscess and is currently on Cubicin. November 16, patient presented with syncopal episode, he had cardiopulmonary arrest 3 found with V. fib and was resuscitated. He underwent cardiac catheter and was found with three-vessel disease. He underwent CABG 5 on 11/20/2016. Patient was discharged home in stable condition. Today, patient was noted with increased shortness of breath, he was in to see Dr. Pretty yesterday for follow-up appointment and was told he had some rales. He was scheduled to have x-ray today. When his home health care nurse checked on him today she noted that he had low saturation of 86-88% and decided that he will be better if he came to the emergency room. Patient is somewhat anxious about having to be admitted. His friend who has been staying with him has noted that in the last week, patient has been more short of breath with any minimal activity. Patient admits that he has had very poor appetite and can only ambulate 50 steps and then has to sit down. He denies any chest pain, no palpitations, no recent fever, no chills, no cough, no sputum production. Patient has been compliant with dialysis, he had a treatment yesterday. His schedule is Friday. He is currently on Cubicin 950 mg every 48 hours and it was due today for discitis as well as rifampin 300 mg by mouth daily. Patient has a PICC line to the right upper extremity. Patient was evaluated in emergency room. CBC was remarkable for WBC of 11.4, chronic anemia, hemoglobin 9.2, hematocrit 28.2. P natruretic peptide 686. Chest x-ray remarkable for pulmonary vascular congestion pattern with mild bilateral lower lobe airspace disease and small pleural effusions. Sats were 88% on room air. Patient doesn' t use oxygen at home. He was noted slightly tachycardic, afebrile. Patient is now admitted for further evaluation and treatment. (Latrice Wilson) Review of Systems Constitutional: COMPLAINS OF: Change in appetite, DENIES: Diaphoretic episodes , Fatigue, Fever, Weight gain, Weight loss, Chills, Dizziness, Night Sweats Endocrine: DENIES: Heat/cold intolerance, Polydipsia, Polyuria, Polyphagia Eyes: DENIES: Blurred vision, Diplopia, Eye inflammation, Eye pain, Vision loss , Photosensitivity, Double Vision Ears, nose, mouth, throat: DENIES: Tinnitus, Hearing loss, Vertigo, Nasal discharge, Oral lesions, Throat pain, Hoarseness, Ear Pain, Running Nose, Epistaxis, Sinus Pain, Toothache, Odynophagia Respiratory: DENIES: Apneas, Cough, Snoring, Wheezing, Hemoptysis, Sputum production, Shortness of breath Cardiovascular: COMPLAINS OF: Dyspnea on Exertion, Lower Extremity Edema, DENIES: Chest pain, Palpitations, Syncope, PND, Orthopnea, Claudication Gastrointestinal: DENIES: Abdominal pain, Black stools, Bloody stools, Constipation, Diarrhea, Nausea, Vomiting, Difficulty Swallowing, Anorexia Genitourinary: DENIES: Sexual dysfunction, Urinary frequency, Urinary incontinence, Urgency, Hematuria, Dysuria, Nocturia, Penile Discharge, Testicular Pain, Testicular Swelling Musculoskeletal: DENIES: Joint pain, Muscle aches, Stiffness, Joint Swelling, Back pain, Neck pain Integumentary: DENIES: Abnormal pigmentation, Nail changes, Pruritus, Rash Hematologic/lymphatic: DENIES: Bruising, Lymphadenopathy Immunologic/allergic: DENIES: Eczema, Urticaria Neurologic: DENIES: Abnormal gait, Headache, Localized weakness, Paresthesias, Seizures, Speech Problems, Tremor, Poor Balance Psychiatric: DENIES: Anxiety, Confusion, Mood changes, Depression, Hallucinations, Agitation, Suicidal Ideation, Homicidal Ideation, Delusions ( Latrice Wilson) Past Family Social History Past Medical History high cholesterol, CHF, diabetes mellitus diet controlled, end-stage renal disease with hemodialysis, GERD, hypertension Admitted in March 2015 with strep sepsis, discitis, as well as septic right shoulder. Required Arthroplasty R shoulder with Dr. Alcantar Valvular heart disease MSSA bacteremia 02/2016, no source was found. Had LEONARD. Required IV antibiotics as OP admitted 10/29-11/05 for lumbar discitis and epidural abscess, + MRSA, being treated for Cubicin and Rifampin admitted 11/16 -11/28,cardiopulmonary arrest, vfib, found with 3 vessel disease. CABG x 5 11/20 Past Surgical History Umbilical hernia repair, AV fistula left forearm,04/08/2015 Arthroplasty R shoulder with Dr. Alcantar S/P CT guided Biopsies of the L1/L2 disc space 10/29 CT-guided biopsy of thoracic epidural abscess 10/[address] Bucio last night. 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 11/17/2016 CABG x 5 11/20/2016 Reported Medications Reported Meds & Active Scripts Active Amiodarone (Amiodarone HCl) 200 Mg Tab 200 Mg PO Q12HR Ask groundhand if refills needed beyond 3 months Velphoro (Sucroferric Oxyhydroxide) 500 Mg Chew 500 Mg CHEW TIDPC Percocet (Oxycodone-Acetaminophen) 5-325 mg Tab 1 Tab PO Q6H PRN Reported Rifampin 300 Mg Cap 300 Mg PO DAILY Temazepam 30 Mg Cap 30 Mg PO HS PRN Vielka-Jitendra (B-Complex W/ C & Folic Acid) 1 Tab 1 Tab PO DAILY Aspirin 325 Mg Tab 325 Mg PO DAILY Colace (Docusate Sodium) 100 Mg Capsule 100 Mg PO DAILY Sensipar (Cinacalcet) 60 Mg Tab 60 Mg PO DAILY@1600 Calcitriol 0.5 Mcg Cap 0.5 Mcg PO DAILY (Latrice Wilson) Allergies: Coded Allergies: *MDRO Multi-Drug Resistant Organism (Verified Adverse Reaction, Unknown, ) MRSA PCR screen POSITIVE - 03/13/16 MRSA (blood)-10/29/16 Active Ordered Medications Inpatient Medications Acetaminophen (Tylenol) 650 mg Q4H PRN PO TEMP > 100.4; Start 12/20/16 at 16:30 Amiodarone HCl (Cordarone) 200 mg Q12HR PO ; Start 12/20/16 at 21:00 Aspirin (Aspirin) 325 mg DAILY PO ; Start 12/21/16 at 09:00 Bisacodyl (Dulcolax Supp) 10 mg DAILY PRN RECTAL SEVERE CONSITIPATION; Start at 16:30 Calcitriol (Rocaltrol) 0.5 mcg DAILY PO ; Start 12/21/16 at 09:00 Cinacalcet (Sensipar) 60 mg DAILY@16 PO ; Start 12/20/16 at 17:00 Lactulose (Lactulose Liq) 30 ml DAILY PRN PO SEVERE CONSITIPATION; Start at 16:30 Magnesium Hydroxide (Milk Of Magnesia Liq) 30 ml Q12H PRN PO MILD - MODERATE CONSTIPATION; Start 12/20/16 at 16:30 Naloxone HCl (Narcan Inj) 0.4 mg UNSCH PRN IV SEE LABEL COMMENTS; Start at 16:30 Ondansetron HCl (Zofran Inj) 4 mg Q6H PRN IVP NAUSEA OR VOMITING; Start at 16:30 Patient Own Medication PT OWN MED: VELPHORO(SUCROFERRIC)... TIDPC OTHER ; Start 12/20/16 at 18:30; Status Future Hold Rifampin (Rifampin) 300 mg DAILY PO ; Start 12/21/16 at 09:00 Senna/Docusate Sodium (Indu-Colace) 1 tab BID PO ; Start 12/20/16 at 21:00 Sennosides (Senokot) 17.2 mg Q12H PRN PO MODERATE - SEVERE CONSTIPATION; Start 12/20/16 at 16:30 Sodium Chloride (NS Flush) 2 ml BID IV FLUSH ; Start 12/20/16 at 21:00 Vitamin B Complex/ Vit C/Folic Acid (Nephrocaps) 1 cap DAILY PO ; Start 12/21/16 at 09:00 Family History Reviewed and noncontributory Social History Currently lives with roommates Reports rare EtOH use Denies tobacco use now or in the past Denies illicit drug use (Latrice Wilson) Physical Exam Vital Signs Vital Signs Date Time Temp Pulse Resp B/P Pulse Ox O2 Delivery O2 Flow Rate FiO2 12/20/16 15:54 102 20 148/71 97 Nasal Cannula 3 12/20/16 13:50 18 86 Room Air 12/20/16 13:21 97.8 107 17 144/69 88 Physical Exam GENERAL: This is a well-nourished, well-developed patient, in no apparent distress. SKIN: No rashes, ecchymoses or lesions. Cool and dry. HEAD: Atraumatic. Normocephalic. No temporal or scalp tenderness. EYES: Pupils equal round and reactive. Extraocular motions intact. No scleral icterus. No injection or drainage. ENT: Nose without bleeding, purulent drainage or septal hematoma. Throat without erythema, tonsillar hypertrophy or exudate. Uvula midline. Airway patent. NECK: Trachea midline. No JVD or lymphadenopathy. Supple, nontender, no meningeal signs. CARDIOVASCULAR: Regular rate and rhythm with soft murmurs, gallops, or rubs. RESPIRATORY: Bibasilar Rales. Midsternal with insufficient, healing well. There are insertion wounds from chest tubes, they're crusted over, no exudate. GASTROINTESTINAL: Abdomen soft, non-tender, nondistended. No hepato-splenomegaly , or palpable masses. No guarding. MUSCULOSKELETAL: Extremities without clubbing, cyanosis. Bilateral pedal edema from knees down to feet, 2+. Has LINNEA hose in place. Pedal pulses 2+ bilaterally. No joint tenderness, effusion, or edema noted. No calf tenderness. Negative Homans sign bilaterally. NEUROLOGICAL: Awake and alert. Cranial nerves II through XII intact. Motor and sensory grossly within normal limits. Five out of 5 muscle strength in all muscle groups. Normal speech. Laboratory Laboratory Tests Test 12/20/16 14:05 White Blood Count 11.4 Red Blood Count 2.95 Hemoglobin 9.2 Hematocrit 28.2 Mean Corpuscular Volume 95.9 Mean Corpuscular Hemoglobin 31.2 Mean Corpuscular Hemoglobin 32.6 Concent Red Cell Distribution Width 18.8 Platelet Count 515 Mean Platelet Volume 7.0 Neutrophils (%) (Auto) 79.4 Lymphocytes (%) (Auto) 6.4 Monocytes (%) (Auto) 8.7 Eosinophils (%) (Auto) 4.4 Basophils (%) (Auto) 1.1 Neutrophils # (Auto) 9.1 Lymphocytes # (Auto) 0.7 Monocytes # (Auto) 1.0 Eosinophils # (Auto) 0.5 Basophils # (Auto) 0.1 CBC Comment DIFF FINAL Differential Comment Sodium Level 136 Potassium Level 3.7 Chloride Level 96 Carbon Dioxide Level 29.8 Anion Gap 10 Blood Urea Nitrogen 30 Creatinine 5.40 Estimat Glomerular Filtration 11 Rate Random Glucose 111 Calcium Level 11.3 Total Bilirubin 0.3 Aspartate Amino Transf 31 (AST/SGOT) Alanine Aminotransferase 21 (ALT/SGPT) Alkaline Phosphatase 83 Troponin I 0.04 B-Type Natriuretic Peptide 686 Total Protein 6.3 Albumin 2.3 (Latrice Wilson) Result Diagram: 12/20/16 1405 12/20/16 1405 Imaging Last Impressions Chest X-Ray 12/20/16 0000 Signed Impressions: Service Date/Time: Tuesday, December 20, 2016 14:21 - CONCLUSION: 1. Pulmonary avascular congestion pattern with mild bilateral lower lobe airspace disease and small pleural effusions. Kane Chapin MD (Latrice Wilson) Assessment and Plan Problem List: (1) Pulmonary edema (2) ESRD (end stage renal disease) on dialysis (3) Discitis (4) Anemia (5) S/P CABG x 5 (6) hx recent cardiac arrest (7) Aortic stenosis (8) CAD (coronary artery disease) Assessment and Plan Admit to Dr. Evans 71-year-old male with significant past medical history of recent cardiac arrest with successful resuscitation 3, found with three-vessel disease, status post CABG 5 November 20, 2016. Presented to the emergency room with dyspnea with exertion, leg edema. Found with BNP 686, chest x-ray significant for pulmonary vascular congestion pattern with mild bilateral lower lobe airspace disease and small pleural effusions. Pulmonary edema -Continuous cardiac telemetry Patient to continue with hemodialysis per nephrology management Nephrology has been consulted Cardiothoracic has evaluated patient History of discitis, had recent epidural and lumbar abscess, positive for MRSA -Consult infectious disease, patient is known to Dr. Farmer Continue with Cubicin and rifampin End-stage renal disease on dialysis Nephrology has been consulted Valvular disease Status post CABG 5 Continue home medication Diet controlled diabetes -Accuchecks with low dose ISS Anemia, secondary to chronic kidney disease CBC stable, continue to monitor Home medications reviewed, some initiated as indicated. SCDs for DVT prophylaxis Plan of care discussed with attending, RN, and pt. Further management of the patient will be dependent on the hospital course. This patient was seen by myself and Dr. Evans, this H/P is written on his behalf. (Latrice Wilson) Assessment and Plan pt's evaluation done as above chart was reviewed plan of care was dw wireless sales expert cond guareded (Alejandro Evans MD) Physician Certification 2 Midnight Certification Type: Admission for Inpatient Services Order for Inpatient Services The services are ordered in accordance with Medicare regulations or non- Medicare payer requirements, as applicable. In the case of services not specified as inpatient-only, they are appropriately provided as inpatient services in accordance with the 2-midnight benchmark. Estimated LOS (days): 2 2 days is the estimated time the patient will need to remain in the hospital, assuming treatment plan goals are met and no additional complications. Post-Hospital Plan: Home Health (Latrice Wilson) Problem Qualifiers (1) Pulmonary edema: Qualified Code: J81.0 - Acute pulmonary edema (2) Discitis: Qualified Code: M46.46 - Discitis of lumbar region (3) Anemia: Qualified Code: N18.6 - Anemia in chronic kidney disease, on chronic dialysis (4) Aortic stenosis: Qualified Code: I35.0 - Nonrheumatic aortic valve stenosis (5) CAD (coronary artery disease): Qualified Code: I25.10 - Coronary artery disease involving koi coronary artery of koi heart without angina pectoris Latrice Wilson Dec 20, 2016 17:00 Alejandro Evans MD Dec 21, 2016 15:33
[2016-12-20] MEDS ORDERED: SODIUM CHLOR 0.9% 1000 ML INJ 1,000 ML IV PRN ×3 (18:18)
[2016-12-20 18:24] VITALS: O2SAT 94
[2016-12-20] MEDS ORDERED: NITROGLYCERIN 0.4 MG SL 25 TABS/BTL SL PRN (18:30)
[2016-12-20] MEDS ORDERED: ALBUMIN HUMAN 25% 25 GM/100 ML BAGP IV PRN (18:30)
[2016-12-20] MEDS ORDERED: HEPARIN SODIUM - IV 10,000 UNITS/10 ML VIAL IVF PRN (18:30)
[2016-12-20] MEDS ORDERED: MANNITOL 12.5 GM/50 ML VIAL IV PRN (18:30)
[2016-12-20] MEDS ORDERED: cloNIDine HCL 0.1 MG TAB PO PRN (18:30)
[2016-12-20] MEDS ORDERED: GELATIN 12 MM/7 MM FOAM TOP PRN (18:30)
[2016-12-20] MEDS ORDERED: ONDANSETRON HCL 4 MG/2 ML VIAL IV PRN (18:30)
[2016-12-20] MEDS ORDERED: diphenhydrAMINE HCL 25 MG CAP PO PRN (18:30)
[2016-12-20] MEDS ORDERED: SUCROFERRIC OXYHYDROXIDE 500 MG CHEW SCH (18:30)
[2016-12-20] MEDS ORDERED: SUCROFERRIC OXYHYDROXIDE 500 MG OTHER SCH (18:30)
--- NOTE | 2016-12-20 18:32 | PD.CONS ---
HPI Service Nephrology Consult Requested By Dr. Evans Reason for Consult ESRD management Primary Care Physician Andres Alvarenga MD (Paul) History of Present Illness Patient is a 71-year-old white male with history of coronary artery disease status post CABG October 21, 2016, epidural abscess, staphylococcal was infection with me on hemodialysis, Friday, and Friday, patient has increasing swelling of the feet and was feeling tired and weak he was admitted today. He states he has been taking Cubicin and 950 mg every other day, he has shortness of breath on exertion. Review of Systems Constitutional: COMPLAINS OF: Fatigue Respiratory: COMPLAINS OF: Shortness of breath Cardiovascular: COMPLAINS OF: Lower Extremity Edema Musculoskeletal: COMPLAINS OF: Joint pain Psychiatric: COMPLAINS OF: Depression Past Family Social History Allergies: Coded Allergies: *MDRO Multi-Drug Resistant Organism (Verified Adverse Reaction, Unknown, ) MRSA PCR screen POSITIVE - 03/13/16 MRSA (blood)-10/29/16 Past Medical History Epidural abscess Coronary artery bypass surgery Coronary artery disease Hyperlipidemia Hypertension Diabetes ESRD History of ventricular fibrillation Past Surgical History AV fistula left forearm Umbilical hernia repair Tenckhoff catheter placement and removal Coronary artery bypass graft ORIF wrist Shoulder. Reported Medications Reported Meds & Active Scripts Active Amiodarone (Amiodarone HCl) 200 Mg Tab 200 Mg PO Q12HR Ask director of institutional research if refills needed beyond 3 months Velphoro (Sucroferric Oxyhydroxide) 500 Mg Chew 500 Mg CHEW TIDPC Percocet (Oxycodone-Acetaminophen) 5-325 mg Tab 1 Tab PO Q6H PRN Reported Rifampin 300 Mg Cap 300 Mg PO DAILY Temazepam 30 Mg Cap 30 Mg PO HS PRN Vielka-Jitendra (B-Complex W/ C & Folic Acid) 1 Tab 1 Tab PO DAILY Aspirin 325 Mg Tab 325 Mg PO DAILY Colace (Docusate Sodium) 100 Mg Capsule 100 Mg PO DAILY Sensipar (Cinacalcet) 60 Mg Tab 60 Mg PO DAILY@1600 Calcitriol 0.5 Mcg Cap 0.5 Mcg PO DAILY Active Ordered Medications Current Medications Medications (Trade) Dose Ordered Sig/Zenobia Route Start Time Stop Time Status Last Admin (NS Flush) 2 ml UNSCH PRN IV FLUSH 12/20/16 16:30 (NS Flush) 2 ml BID IV FLUSH 12/20/16 21:00 (Tylenol) 650 mg Q4H PRN PO 12/20/16 16:30 (Zofran Inj) 4 mg Q6H PRN IVP 12/20/16 16:30 (Narcan Inj) 0.4 mg UNSCH PRN IV 12/20/16 16:30 (Indu-Colace) 1 tab BID PO 12/20/16 21:00 (Milk Of Magnesia Liq) 30 ml Q12H PRN PO 12/20/16 16:30 (Senokot) 17.2 mg Q12H PRN PO 12/20/16 16:30 (Dulcolax Supp) 10 mg DAILY PRN RECTAL 12/20/16 16:30 (Lactulose Liq) 30 ml DAILY PRN PO 12/20/16 16:30 (Cordarone) 200 mg Q12HR PO 12/20/16 21:00 (Aspirin) 325 mg DAILY PO 12/21/16 09:00 (Rocaltrol) 0.5 mcg DAILY PO 12/21/16 09:00 (Sensipar) 60 mg DAILY@16 PO 12/20/16 17:00 (Nephrocaps) 1 cap DAILY PO 12/21/16 09:00 (Rifampin) 300 mg DAILY PO 12/21/16 09:00 Patient Own Medication PT OWN MED: VELPHORO(SUCROFERRIC)... TIDPC OTHER 12/20/16 18:30 Future Hold Family History Noncontributory Social History Denies smoking or alcohol use Physical Exam Vital Signs Vital Signs Date Time Temp Pulse Resp B/P Pulse Ox O2 Delivery O2 Flow Rate FiO2 12/20/16 15:54 102 20 148/71 97 Nasal Cannula 3 12/20/16 13:50 18 86 Room Air 12/20/16 13:21 97.8 107 17 144/69 88 Physical Exam GENERAL: Well-nourished, well-developed patient. SKIN: Warm and dry. HEAD: Normocephalic. EYES: No scleral icterus. No injection or drainage. NECK: Supple, trachea midline. No JVD or lymphadenopathy. CARDIOVASCULAR: Regular rate and rhythm without murmurs, gallops, or rubs. RESPIRATORY: Breath sounds diminished at bases GASTROINTESTINAL: Abdomen soft, non-tender, nondistended. EXTREMITIES: No cyanosis, 2+ edema. AV fistula left forearm NEUROLOGICAL: Awake, alert, and oriented x 3. Non-focal. Laboratory Laboratory Tests Test 12/20/16 14:05 White Blood Count 11.4 Red Blood Count 2.95 Hemoglobin 9.2 Hematocrit 28.2 Mean Corpuscular Volume 95.9 Mean Corpuscular Hemoglobin 31.2 Mean Corpuscular Hemoglobin 32.6 Concent Red Cell Distribution Width 18.8 Platelet Count 515 Mean Platelet Volume 7.0 Neutrophils (%) (Auto) 79.4 Lymphocytes (%) (Auto) 6.4 Monocytes (%) (Auto) 8.7 Eosinophils (%) (Auto) 4.4 Basophils (%) (Auto) 1.1 Neutrophils # (Auto) 9.1 Lymphocytes # (Auto) 0.7 Monocytes # (Auto) 1.0 Eosinophils # (Auto) 0.5 Basophils # (Auto) 0.1 CBC Comment DIFF FINAL Differential Comment Sodium Level 136 Potassium Level 3.7 Chloride Level 96 Carbon Dioxide Level 29.8 Anion Gap 10 Blood Urea Nitrogen 30 Creatinine 5.40 Estimat Glomerular Filtration 11 Rate Random Glucose 111 Calcium Level 11.3 Total Bilirubin 0.3 Aspartate Amino Transf 31 (AST/SGOT) Alanine Aminotransferase 21 (ALT/SGPT) Alkaline Phosphatase 83 Troponin I 0.04 B-Type Natriuretic Peptide 686 Total Protein 6.3 Albumin 2.3 Result Diagram: 12/20/16 1405 12/20/16 1405 Imaging Last Impressions Chest X-Ray 12/20/16 0000 Signed Impressions: Service Date/Time: Tuesday, December 20, 2016 14:21 - CONCLUSION: 1. Pulmonary avascular congestion pattern with mild bilateral lower lobe airspace disease and small pleural effusions. Kane Chapin MD Assessment and Plan Problem List: (1) ESRD (end stage renal disease) on dialysis Plan: Hemodialysis will plan on Friday, and Friday and we will attempt to take off extra fluid he is comfortable. Continue to monitor while in the hospital I will be away next week and Dr. Ledezma, Dr. Childs to follow (2) S/P CABG x 5 Plan: Continue to monitor (3) Diabetes Plan: Monitor blood glucose (4) Abscess in epidural space of thoracic spine Plan: Continue with daptomycin 950 mg every 48 Araceli Freire MD Dec 20, 2016 18:32
[2016-12-20] MEDS: CINACALCET HYDROCHLORIDE 30 MG TAB PO SCH (18:50)
[2016-12-20] MEDS ORDERED: GLUCAGON 1 MG/ML VIAL OTHER PRN (19:15)
[2016-12-20] MEDS ORDERED: DEXTROSE 50% IN WATER 50 ML SYRINGE IV PRN (19:30)
[2016-12-20 19:53] VITALS: BP 129/65; PULSE 95; RESP 18; O2SAT 95
[2016-12-20] MEDS ORDERED: SODIUM CHLORIDE 0.9% IV ONE (20:00)
[2016-12-20] MEDS ORDERED: DAPTOMYCIN IV ONE (20:00)
[2016-12-20] MEDS: AMIODARONE 200 MG TAB PO SCH (20:21)
[2016-12-20] MEDS: DOCUSATE SODIUM 50 MG/SENNA 8.6 MG TAB PO SCH (20:22)
[2016-12-20] MEDS: SODIUM CHLORIDE 0.9% FLUSH 10 ML FLUSH IV FLUSH SCH (21:00)
[2016-12-20] MEDS: INSULIN ASPART SUPPLEMENTAL SCALE SQ SCH (21:16)
[2016-12-20 22:15] VITALS: BP 144/72; PULSE 86; RESP 18; O2SAT 94
[2016-12-20 23:08] VITALS: BP 117/74
[2016-12-21] VITALS (8 sets, daily range): BP systolic 108–123; BP diastolic 56–83; PULSE 82–100; RESP 18–20; TEMP 98.2–99.7; O2SAT 90–97
[2016-12-21] MEDS: INSULIN ASPART SUPPLEMENTAL SCALE SQ SCH ×4 (07:00→20:48)
[2016-12-21] MEDS: AMIODARONE 200 MG TAB PO SCH ×3 (09:00→20:49)
[2016-12-21] MEDS ORDERED: RIFAMPIN 300 MG PO SCH (09:00)
[2016-12-21] MEDS: CALCITRIOL 0.25 MCG CAP PO SCH ×2 (09:00→17:36)
[2016-12-21] MEDS: RIFAMPIN 150 MG CAP PO SCH ×2 (09:00→17:36)
[2016-12-21] MEDS: DOCUSATE SODIUM 50 MG/SENNA 8.6 MG TAB PO SCH ×2 (09:00→20:49)
[2016-12-21] MEDS: ASPIRIN 325 MG TAB PO SCH ×2 (09:00→17:35)
[2016-12-21] MEDS: SODIUM CHLORIDE 0.9% FLUSH 10 ML FLUSH IV FLUSH SCH ×2 (09:00→20:49)
[2016-12-21] MEDS: VITAMIN B CMPLX/VITC/FOLIC AC CAP PO SCH ×2 (09:00→17:35)
[2016-12-21] MEDS ORDERED: NON-FORMULARY DRUG (B-Complex W/ C & Folic Acid (Rena-Vite) 1 TAB) PO SCH (09:00)
--- NOTE | 2016-12-21 10:20 | HHI.NPPN ---
Subjective Additional Remarks patient admitted yesterday, to have dialysis today. On Daptomycin for epidural abscess, it will be given after dialysis. Review of Systems General Constitutional: Fatigue Objective Data Data 12/20/16 12/21/16 19:00 07:00 Intake Total 120 ml Output Total 0 ml Balance 120 ml Intake Oral 120 ml Output Urine Total 0 ml # Bowel Movements 0 Vital Signs Date Time Temp Pulse Resp B/P Pulse Ox O2 Delivery O2 Flow Rate FiO2 12/21/16 08:07 98.3 84 19 119/61 92 12/21/16 03:40 Nasal Cannula 3.00 12/21/16 03:40 98.9 90 18 120/57 91 12/21/16 00:53 99 12/21/16 00:00 Nasal Cannula 3.00 12/21/16 00:00 98.2 91 20 111/56 92 12/20/16 23:08 96 18 117/74 95 12/20/16 22:15 86 18 144/72 94 Nasal Cannula 12/20/16 19:53 95 18 129/65 95 Room Air 12/20/16 18:24 94 Nasal Cannula 3.00 12/20/16 15:54 102 20 148/71 97 Nasal Cannula 3 12/20/16 13:50 18 86 Room Air 12/20/16 13:21 97.8 107 17 144/69 88 -: 12/20/16 1405 12/20/16 1405 Physical Exam General Appearance: Well Developed, No Acute Distress Ears & Nose Ears & Nose Exam: Tympanic Membranes Normal Neck Neck Exam: Neck Supple Pulmonary Resp Exam: Clear Bilaterally Cardiology CV Exam: Regular Gastrointestinal/Abdomen GI Exam: Soft, Non-Tender, Bowel Sounds Present Musculoskeletal MS Exam: Joints Intact Integumentary Skin Exam: Intact Extremeties Extremities Exam: Moderate Edema Neurologic Neuro Exam: Alert, Moving All Extremities Assessment/Plan Problem List: (1) ESRD (end stage renal disease) on dialysis Plan: Hemodialysis will plan on Friday, and Friday and we will attempt to take off extra fluid he is comfortable. Continue to monitor while in the hospital (2) S/P CABG x 5 Plan: Continue to monitor (3) Diabetes Plan: Monitor blood glucose (4) Abscess in epidural space of thoracic spine Plan: Continue with daptomycin 950 mg every 48 hours, after dialysis on dialysis days. (5) Anemia Plan: Epogen with dialysis. Problem Qualifiers (1) Anemia: Qualified Code: N18.6 - Anemia in chronic kidney disease, on chronic dialysis Nando Ledezma MD Dec 21, 2016 10:20
[2016-12-21] MEDS: ACETAMINOPHEN 325 MG TAB PO PRN (13:01)
--- NOTE | 2016-12-21 13:21 | HHI.PR ---
Subjective Remarks going for HD today legs with less swelling SOB ok while at rest no cp "bored" understands he has to stay no fever Objective Objective Results - Vital Signs Date Time Temp Pulse Resp B/P Pulse Ox O2 Delivery O2 Flow Rate FiO2 12/21/16 12:28 98.2 88 19 123/62 92 12/21/16 09:00 82 12/21/16 09:00 97 Nasal Cannula 2.00 12/21/16 08:07 98.3 84 19 119/61 92 12/21/16 03:40 Nasal Cannula 3.00 12/21/16 03:40 98.9 90 18 120/57 91 12/21/16 00:53 99 12/21/16 00:00 Nasal Cannula 3.00 12/21/16 00:00 98.2 91 20 111/56 92 12/20/16 23:08 96 18 117/74 95 12/20/16 22:15 86 18 144/72 94 Nasal Cannula 12/20/16 19:53 95 18 129/65 95 Room Air 12/20/16 18:24 94 Nasal Cannula 3.00 12/20/16 15:54 102 20 148/71 97 Nasal Cannula 3 12/20/16 13:50 18 86 Room Air I/O 12/20/16 12/20/16 12/20/16 12/21/16 12/21/16 12/21/16 07:00 15:00 23:00 07:00 15:00 23:00 Intake Total 120 ml Output Total 0 ml Balance 120 ml Intake Oral 120 ml Output Urine Total 0 ml # Bowel Movements 0 Result Diagram: 12/20/16 1405 12/20/16 1405 Imaging Last Impressions Chest X-Ray 12/20/16 0000 Signed Impressions: Service Date/Time: Tuesday, December 20, 2016 14:21 - CONCLUSION: 1. Pulmonary avascular congestion pattern with mild bilateral lower lobe airspace disease and small pleural effusions. Kane Chapin MD Other Results Laboratory Tests Test 12/20/16 14:05 White Blood Count 11.4 Red Blood Count 2.95 Hemoglobin 9.2 Hematocrit 28.2 Mean Corpuscular Volume 95.9 Mean Corpuscular Hemoglobin 31.2 Mean Corpuscular Hemoglobin 32.6 Concent Red Cell Distribution Width 18.8 Platelet Count 515 Mean Platelet Volume 7.0 Neutrophils (%) (Auto) 79.4 Lymphocytes (%) (Auto) 6.4 Monocytes (%) (Auto) 8.7 Eosinophils (%) (Auto) 4.4 Basophils (%) (Auto) 1.1 Neutrophils # (Auto) 9.1 Lymphocytes # (Auto) 0.7 Monocytes # (Auto) 1.0 Eosinophils # (Auto) 0.5 Basophils # (Auto) 0.1 CBC Comment DIFF FINAL Differential Comment Sodium Level 136 Potassium Level 3.7 Chloride Level 96 Carbon Dioxide Level 29.8 Anion Gap 10 Blood Urea Nitrogen 30 Creatinine 5.40 Estimat Glomerular Filtration 11 Rate Random Glucose 111 Calcium Level 11.3 Total Bilirubin 0.3 Aspartate Amino Transf 31 (AST/SGOT) Alanine Aminotransferase 21 (ALT/SGPT) Alkaline Phosphatase 83 Troponin I 0.04 B-Type Natriuretic Peptide 686 Total Protein 6.3 Albumin 2.3 ROS General: No: Fatigue, Weakness HEENT: No: Sore Throat, Dysphagia Cardiac: Edema, No: Chest Pain, Palpitations, Other Pulmonary: SOB, No: Cough, Wheezing, Other GI: No: Abdominal Pain, BM, Diarrhea, 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 SKIN: No rashes, ecchymoses or lesions. Cool and dry. HEAD: Atraumatic. Normocephalic. No temporal or scalp tenderness. EYES: Pupils equal round and reactive. Extraocular motions intact. No scleral icterus. No injection or drainage. ENT: Nose without bleeding, purulent drainage or septal hematoma. Throat without erythema, tonsillar hypertrophy or exudate. Uvula midline. Airway patent. NECK: Trachea midline. No JVD or lymphadenopathy. Supple, nontender, no meningeal signs. CARDIOVASCULAR: Regular rate and rhythm with soft murmurs, gallops, or rubs. RESPIRATORY: Bibasilar Rales. Midsternal with insufficient, healing well. There are insertion wounds from chest tubes, they're crusted over, no exudate. GASTROINTESTINAL: Abdomen soft, non-tender, nondistended. No hepato-splenomegaly , or palpable masses. No guarding. MUSCULOSKELETAL: Extremities without clubbing, cyanosis. Bilateral pedal edema from knees down to feet, 2+. Has LINNEA hose in place. Pedal pulses 2+ bilaterally. No joint tenderness, effusion, or edema noted. No calf tenderness. Negative Homans sign bilaterally. NEUROLOGICAL: Awake and alert. Cranial nerves II through XII intact. Motor and sensory grossly within normal limits. Five out of 5 muscle strength in all muscle groups. Normal speech. Urinary Catheter: No Vascular Central Line Catheter: No A/P Diagnosis: (1) Pulmonary edema (2) ESRD (end stage renal disease) on dialysis (3) Discitis (4) Anemia (5) S/P CABG x 5 (6) hx recent cardiac arrest (7) Aortic stenosis (8) CAD (coronary artery disease) Assessment and Plan 71-year-old male with significant past medical history of recent cardiac arrest with successful resuscitation 3, found with three-vessel disease, status post CABG 5 November 20, 2016. Presented to the emergency room with dyspnea with exertion, leg edema. Found with BNP 686, chest x-ray significant for pulmonary vascular congestion pattern with mild bilateral lower lobe airspace disease and small pleural effusions. Pulmonary edema -Continuous cardiac telemetry Patient to continue with hemodialysis per nephrology management Nephrology has been consulted, input appreciated. For HD today Cardiothoracic has evaluated patient History of discitis, had recent epidural and lumbar abscess, positive for MRSA -Consult infectious disease, patient is known to Dr. Farmer Continue with Cubicin and rifampin End-stage renal disease on dialysis Nephrology has been consulted, input appreciated Valvular disease Status post CABG 5 Continue home medication Diet controlled diabetes -Accuchecks with low dose ISS Anemia, secondary to chronic kidney disease CBC stable, continue to monitor SCDs for DVT prophylaxis Continue with HD, improving D/W RN D/W Dr. Evans D/W pt This patient was seen by myself and Dr. Evans, this note is written on his behalf. Problem Qualifiers (1) Pulmonary edema: Qualified Code: J81.0 - Acute pulmonary edema (2) Discitis: Qualified Code: M46.46 - Discitis of lumbar region (3) Anemia: Qualified Code: N18.6 - Anemia in chronic kidney disease, on chronic dialysis (4) Aortic stenosis: Qualified Code: I35.0 - Nonrheumatic aortic valve stenosis (5) CAD (coronary artery disease): Qualified Code: I25.10 - Coronary artery disease involving hughes coronary artery of hughes heart without angina pectoris Latrice Wilson Dec 21, 2016 13:21
--- NOTE | 2016-12-21 13:23 | EKG ---
Date Performed: 12/20/2016 Time Performed: 14:11:40 PTAGE: 71 years EKG: Sinus rhythm WITH FIRST DEGREE AV BLOCK WITH OCCASIONAL SUPRAVENTRICULAR PREMATURE COMPLEXES MODERATE INTRAVENTRI CULAR CONDUCTION DELAY NONSPECIFIC ST & T-WAVE ABNORMALITY ABNORMAL ECG PREVIOUS TRACING : 11/21/2016 05.15.44 Since previous tracing, no significant change noted DOCTOR: Johanna Byrnes Interpretating Date/Time 12/23/2016 06:41:19
--- NOTE | 2016-12-21 15:01 | HHI.FF ---
Face to Face Verification Diagnosis: (1) Pulmonary edema (2) hx recent cardiac arrest Physical Therapy Order: Evaluate and Treat Home Health Nursing Order: Medical education Signs/symptoms of disease process Nursing assessment with vital signs I have seen patient Roland Conrad on 12/21/16. My clinical findings support the need for the requested home health care services because: Patient has SOB Deconditioned w/ increased weakness Limited ability to care for self Need for psychosocial assistance High risk of falls I certify that my clinical findings support that this patient is homebound because: Unsteady gait/balance Unsafe to leave home unassisted Need for psychosocial assistance Poor cardiac reserve Latrice Wilson [facility] Dec 21, 2016 15:01
[2016-12-21] MEDS: CINACALCET HYDROCHLORIDE 30 MG TAB PO SCH (16:00)
[2016-12-21] MEDS: EPOETIN ALFA 10,000 UNITS/ML VIAL IV PRN (16:02)
--- NOTE | 2016-12-21 20:37 | MB ---
cc: MT CADET MD DATE OF CONSULTATION: 12/21/2016. REASON FOR CONSULTATION: Patient with known discitis on Cubicin. REQUESTING PHYSICIAN: NATASHA Chan. HISTORY OF PRESENT ILLNESS: This is a 71-year-old white male who has a diagnosis of discitis of the lumbar spine. The patient has been receiving home intravenous antibiotics in the form of Cubicin, which is to be continued as prescribed by Dr. Farmer until January 27, 2017. He is also on rifampin by mouth until January 27 also. The patient had a chest x-ray that showed pulmonary vascular congestion pattern with mild bilateral lower lobe airspace disease and small pleural effusions. The patient was admitted to the hospital after he went to see the cardiothoracic surgeons the day before and was told that he had crackles in the lungs and was supposed to get a chest x-ray. He however developed shortness of breath and his home health nurse decided that it would be better for him to come to the emergency department where he came and he was evaluated. He had a heart rate of 102 and a chest x-ray showed congestive heart failure and therefore he was admitted. There is also concern for pulmonary embolism and pneumonia. Currently the patient feels well. He states that his back pain has significantly improved since he was discharged from the hospital in November. He says that his breathing is better. He gets dialyzed and he had dialysis yesterday. Currently he is feeling well and is afebrile. PAST MEDICAL HISTORY: 1. 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 Coronary artery disease status post coronary bypass graft surgery. 3. End-stage renal disease on hemodialysis. 4. Hypercholesteremia. ALLERGIES: NO KNOWN DRUG ALLERGIES. MEDICATIONS: 1. Cubicin. 2. Aspirin. 3. Calcitriol. 4. Rifampin. 5. Indu-Colace. 6. Cordarone. 7. Sensipar. SOCIAL HISTORY: Occasional alcohol. No tobacco, no illicit drugs. FAMILY HISTORY Noncontributory. REVIEW OF SYSTEMS: Review of systems negative on 10-point review. PHYSICAL EXAMINATION: GENERAL: This is a slender male who is in no acute distress. He is awake and alert and oriented. VITAL SIGNS: Include temperature 98.2, blood pressure 123/62, respirations 19, heart rate 88. HEAD, EYES, EARS, NOSE, THROAT: Head is atraumatic. Extraocular movements grossly intact, pupils reactive to light. No icterus. No conjunctival erythema. Oropharynx moist mucosa. No lesions. NECK: Supple without adenopathy or swelling. LUNGS: Clear to auscultation with slightly diminished breath sounds at the bases. HEART: Regular S1-S2 without audible murmurs or rubs or gallops. ABDOMEN: Bowel sounds present, soft, no tenderness appreciated. No tenderness at the lower back. RECTAL: Not performed. EXTREMITIES: 1+ pitting edema at the lower extremities. No clubbing or cyanosis. NEUROLOGIC: No gross focal findings. SKIN: No rash. PSYCHIATRIC: The patient is calm and cooperative. LABORATORY DATA WBCs 11.4, platelet count 515,000, hemoglobin 9.2, 79% neutrophils. Creatinine 5.40, BUN 30, estimated GFR 11. Brain natriuretic peptide 686. IMPRESSION: This is a patient with diagnosis of thoracic and lumbar osteomyelitis and discitis due to MRSA with ongoing treatment scheduled to continue until January 27, 2017 with Cubicin and Rifampin. The patient appears to have had congestive heart failure which prompted this admission. He is clinically stable from an infectious disease standpoint. RECOMMENDATIONS: 1. Continue the patient's Cubicin and Rifampin as previously ordered. 2. The patient can be discharged and continue with his home administration of antibiotics. Thank you for this consultation. Please call if further input is needed. Mt Cadet MD FD/JOSE MIGUEL /7:44 PM /8:21 PM
[2016-12-21] MEDS: ACETAMINOPHEN/HYDROcodone 325 MG/7.5 MG TAB PO PRN (20:50)
[2016-12-22] VITALS (9 sets, daily range): BP systolic 96–114; BP diastolic 51–71; PULSE 82–96; RESP 18–20; TEMP 97.5–99.4; O2SAT 92–95
[2016-12-22 00:26] LABS: AUTOMATED NEUTROPHIL # 8.7 TH/MM3 (1.8-7.7); BASOPHIL # 0.1 TH/MM3 (0-0.2); BASOPHIL % 1.2 % (0.0-2.0); EOSINOPHIL # 0.5 TH/MM3 (0-0.4); EOSINOPHIL % 4.7 % (0.0-4.0); HEMO FLAGS DIFF FINAL; LYMPH % 6.1 % (9.0-44.0); LYMPHOCYTE # 0.7 TH/MM3 (1.0-4.8); MEAN CELL VOLUME 96.2 FL (80.0-100.0); MEAN CORPUSCULAR HEMOGLOBIN 31.6 PG (27.0-34.0); MEAN CORPUSCULAR HGB CONC 32.9 % (32.0-36.0); PLATELET COUNT 485 TH/MM3 (150-450); RED CELL DISTRIBUTION WIDTH 18.8 % (11.6-17.2); WHITE BLOOD COUNT 11.2 TH/MM3 (4.0-11.0)
[2016-12-22] MEDS: INSULIN ASPART SUPPLEMENTAL SCALE SQ SCH ×4 (06:24→20:44)
[2016-12-22] MEDS: AMIODARONE 200 MG TAB PO SCH ×2 (09:00→20:45)
[2016-12-22] MEDS: SODIUM CHLORIDE 0.9% FLUSH 10 ML FLUSH IV FLUSH SCH ×2 (09:00→20:46)
[2016-12-22] MEDS: DOCUSATE SODIUM 50 MG/SENNA 8.6 MG TAB PO SCH ×2 (09:00→20:44)
[2016-12-22] MEDS: ASPIRIN 325 MG TAB PO SCH (09:14)
[2016-12-22] MEDS: VITAMIN B CMPLX/VITC/FOLIC AC CAP PO SCH (09:15)
[2016-12-22] MEDS: RIFAMPIN 150 MG CAP PO SCH (09:15)
[2016-12-22] MEDS: CALCITRIOL 0.25 MCG CAP PO SCH (09:15)
--- NOTE | 2016-12-22 09:20 | HHI.NPPN ---
Subjective Additional Remarks Had dialysis yesterday with removal of 3.5 liters. Seen by ID, plan is to continue Cubicin and Rifampin. Review of Systems General Constitutional: Fatigue Objective Data Data 12/21/16 12/22/16 19:00 07:00 Intake Total 240 ml Output Total 3500 ml Balance -3260 ml Intake Oral 240 ml Output Urine Total 0 ml Hemodialysis 3500 ml # Bowel Movements 0 Vital Signs Date Time Temp Pulse Resp B/P Pulse Ox O2 Delivery O2 Flow Rate FiO2 12/22/16 04:00 Nasal Cannula 4.00 12/22/16 04:00 99.4 96 20 107/59 92 12/22/16 00:00 Nasal Cannula 4.00 12/22/16 00:00 98.8 96 18 96/51 92 12/21/16 20:00 99.7 99 18 108/83 90 12/21/16 20:00 Nasal Cannula 2.00 12/21/16 20:00 100 12/21/16 12:28 98.2 88 19 123/62 92 12/21/16 12:00 97 Nasal Cannula 2.00 -: 12/21/16 2355 12/20/16 1405 Physical Exam General Appearance: Well Developed, No Acute Distress Ears & Nose Ears & Nose Exam: Tympanic Membranes Normal Neck Neck Exam: Neck Supple Pulmonary Resp Exam: Crackles Cardiology CV Exam: Regular Gastrointestinal/Abdomen GI Exam: Soft, Non-Tender, Bowel Sounds Present Musculoskeletal MS Exam: Joints Intact Integumentary Skin Exam: Intact Extremeties Extremities Exam: Moderate Edema, Dependent Edema Neurologic Neuro Exam: Alert, Moving All Extremities Assessment/Plan Problem List: (1) ESRD (end stage renal disease) on dialysis Plan: Underwent dialysis yesterday. Tolerated it well. Outpatient dialysis is set up. Previously was on home hemodialysis. He continues to demonstrate signs of fluid overload. He will have an extra dialysis/UF tomorrow for fluid removal. (2) S/P CABG x 5 Plan: Continue to monitor (3) Diabetes Plan: Monitor blood glucose (4) Abscess in epidural space of thoracic spine Plan: Continue with daptomycin 950 mg every 48 hours, after dialysis on dialysis days. (5) Anemia Plan: Epogen with dialysis. Problem Qualifiers (1) Anemia: Qualified Code: N18.6 - Anemia in chronic kidney disease, on chronic dialysis Nando Ledezma MD Dec 22, 2016 09:20
[2016-12-22] MEDS: ACETAMINOPHEN 325 MG TAB PO PRN (11:37)
--- NOTE | 2016-12-22 13:21 | HHI.PR ---
Subjective Remarks had HD yesterday leg swelling improved SOB improved no cp no fever (Latrice Wilson) Objective Objective Results - Vital Signs Date Time Temp Pulse Resp B/P Pulse Ox O2 Delivery O2 Flow Rate FiO2 12/22/16 12:00 98.5 85 20 114/59 93 12/22/16 11:42 94 Nasal Cannula 4.00 12/22/16 09:00 98 Nasal Cannula 4.00 12/22/16 08:00 98.6 90 20 113/71 93 12/22/16 04:00 Nasal Cannula 4.00 12/22/16 04:00 99.4 96 20 107/59 92 12/22/16 00:00 Nasal Cannula 4.00 12/22/16 00:00 98.8 96 18 96/51 92 12/21/16 20:00 99.7 99 18 108/83 90 12/21/16 20:00 Nasal Cannula 2.00 12/21/16 20:00 100 I/O 12/21/16 12/21/16 12/21/16 12/22/16 12/22/16 12/22/16 07:00 15:00 23:00 07:00 15:00 23:00 Intake Total 120 ml 240 ml Output Total 0 ml 0 ml 3500 ml Balance 120 ml 240 ml -3500 ml Intake Oral 120 ml 240 ml Output Urine Total 0 ml 0 ml Hemodialysis 3500 ml # Bowel Movements 0 0 (Latrice Wilson) Result Diagram: 12/21/16 2355 12/20/16 1405 Imaging Last Impressions Chest X-Ray 12/20/16 0000 Signed Impressions: Service Date/Time: Tuesday, December 20, 2016 14:21 - CONCLUSION: 1. Pulmonary avascular congestion pattern with mild bilateral lower lobe airspace disease and small pleural effusions. Kane Chapin MD Other Results Laboratory Tests Test 12/21/16 23:55 White Blood Count 11.2 Red Blood Count 2.70 Hemoglobin 8.5 Hematocrit 26.0 Mean Corpuscular Volume 96.2 Mean Corpuscular Hemoglobin 31.6 Mean Corpuscular Hemoglobin 32.9 Concent Red Cell Distribution Width 18.8 Platelet Count 485 Mean Platelet Volume 6.6 Neutrophils (%) (Auto) 78.0 Lymphocytes (%) (Auto) 6.1 Monocytes (%) (Auto) 10.0 Eosinophils (%) (Auto) 4.7 Basophils (%) (Auto) 1.2 Neutrophils # (Auto) 8.7 Lymphocytes # (Auto) 0.7 Monocytes # (Auto) 1.1 Eosinophils # (Auto) 0.5 Basophils # (Auto) 0.1 CBC Comment DIFF FINAL Differential Comment (Latrice Wilson) ROS General: No: Fatigue, Weakness HEENT: No: Sore Throat, Dysphagia Cardiac: Edema, No: Chest Pain, Palpitations Pulmonary: SOB, No: Cough, Wheezing GI: No: Abdominal Pain, BM, Diarrhea, N/V /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 SKIN: No rashes, ecchymoses or lesions. Cool and dry. HEAD: Atraumatic. Normocephalic. No temporal or scalp tenderness. EYES: Pupils equal round and reactive. Extraocular motions intact. No scleral icterus. No injection or drainage. ENT: Nose without bleeding, purulent drainage or septal hematoma. Throat without erythema, tonsillar hypertrophy or exudate. Uvula midline. Airway patent. NECK: Trachea midline. No JVD or lymphadenopathy. Supple, nontender, no meningeal signs. CARDIOVASCULAR: Regular rate and rhythm with soft murmurs, gallops, or rubs. RESPIRATORY: Bibasilar Rales. Midsternal with insufficient, healing well. There are insertion wounds from chest tubes, they're crusted over, no exudate. GASTROINTESTINAL: Abdomen soft, non-tender, nondistended. No hepato-splenomegaly , or palpable masses. No guarding. MUSCULOSKELETAL: Extremities without clubbing, cyanosis. Bilateral pedal edema from knees down to feet, 2+. Has LINNEA hose in place. Pedal pulses 2+ bilaterally. No joint tenderness, effusion, or edema noted. No calf tenderness. Negative Homans sign bilaterally. NEUROLOGICAL: Awake and alert. Cranial nerves II through XII intact. Motor and sensory grossly within normal limits. Five out of 5 muscle strength in all muscle groups. Normal speech. (Latrice Wilson) A/P Diagnosis: (1) Pulmonary edema (2) ESRD (end stage renal disease) on dialysis (3) Discitis (4) Anemia (5) S/P CABG x 5 (6) hx recent cardiac arrest (7) Aortic stenosis (8) CAD (coronary artery disease) Assessment and Plan 71-year-old male with significant past medical history of recent cardiac arrest with successful resuscitation 3, found with three-vessel disease, status post CABG 5 November 20, 2016. Presented to the emergency room with dyspnea with exertion, leg edema. Found with BNP 686, chest x-ray significant for pulmonary vascular congestion pattern with mild bilateral lower lobe airspace disease and small pleural effusions. Pulmonary edema -Continuous cardiac telemetry Patient to continue with hemodialysis per nephrology management Nephrology has been consulted, input appreciated. For HD today Cardiothoracic has evaluated patient -Improving with dialysis treatment, we'll check walk test to assess whether he will need oxygen when he is discharge History of discitis, had recent epidural and lumbar abscess, positive for MRSA -Appreciate ID input, continue with present treatment. Continue with Cubicin and rifampin End-stage renal disease on dialysis Nephrology has been consulted, input appreciated Valvular disease Status post CABG 5 Continue home medication Diet controlled diabetes -Accuchecks with low dose ISS Anemia, secondary to chronic kidney disease CBC stable, continue to monitor SCDs for DVT prophylaxis Continue with HD, improving-had tx yesterday, improving Walk test he is to have another treatment tomorrow, then plan to dc if ok with nephro CM consult to resume C D/W RN D/W Dr. Evans D/W pt This patient was seen by myself and Dr. Evans, this note is written on his behalf. (Latrice Wilson) Assessment and Plan pt seen and examined as above dw pt labs reviewed [facility] help sekou foxp about plan of care (Alejandro Evans MD) Problem Qualifiers (1) Pulmonary edema: Qualified Code: J81.0 - Acute pulmonary edema (2) Discitis: Qualified Code: M46.46 - Discitis of lumbar region (3) Anemia: Qualified Code: N18.6 - Anemia in chronic kidney disease, on chronic dialysis (4) Aortic stenosis: Qualified Code: I35.0 - Nonrheumatic aortic valve stenosis (5) CAD (coronary artery disease): Qualified Code: I25.10 - Coronary artery disease involving napaimute coronary artery of napaim[place] heart without angina pectoris Latrice Wilson Dec 22, 2016 13:21 Alejandro Evans MD Dec 22, 2016 14:48
[2016-12-22] MEDS: DAPTOMYCIN IV SCH (17:43)
[2016-12-22] MEDS: SODIUM CHLORIDE 0.9% IV SCH (17:43)
[2016-12-22] MEDS: CINACALCET HYDROCHLORIDE 30 MG TAB PO SCH (17:43)
[2016-12-23] VITALS (11 sets, daily range): BP systolic 98–137; BP diastolic 54–70; PULSE 87–103; RESP 18–20; TEMP 97.9–99.7; O2SAT 90–95
[2016-12-23] MEDS: INSULIN ASPART SUPPLEMENTAL SCALE SQ SCH ×4 (06:29→20:24)
[2016-12-23] MEDS: SODIUM CHLORIDE 0.9% FLUSH 10 ML FLUSH IV FLUSH SCH ×2 (09:00→20:24)
[2016-12-23] MEDS: DOCUSATE SODIUM 50 MG/SENNA 8.6 MG TAB PO SCH ×2 (10:58→20:23)
[2016-12-23] MEDS: AMIODARONE 200 MG TAB PO SCH ×2 (10:58→20:24)
--- NOTE | 2016-12-23 11:59 | HHI.PR ---
Subjective Remarks Sitting up in chair Alert oriented, conversational Denies any chest pain Low-grade fever 99.1 Telemetry shows heart rate in the 90s borderline 100 with bundle branch block and occasional PVCs, isolated (Natasha Dumont) Objective Objective Results - Vital Signs Date Time Temp Pulse Resp B/P Pulse Ox O2 Delivery O2 Flow Rate FiO2 12/23/16 08:00 99.1 87 20 98/54 93 12/23/16 08:00 Nasal Cannula 3.00 12/23/16 04:00 Nasal Cannula 4.00 12/23/16 04:00 97.9 93 18 129/60 90 12/23/16 00:00 Nasal Cannula 3.00 12/23/16 00:00 97.9 87 18 125/59 92 12/22/16 20:00 85 12/22/16 20:00 Nasal Cannula 3.00 12/22/16 18:39 98.5 82 20 114/54 95 12/22/16 18:23 95 Nasal Cannula 3.00 12/22/16 16:00 97.5 94 20 98/55 93 12/22/16 12:00 98.5 85 20 114/59 93 I/O 12/22/16 12/22/16 12/22/16 12/23/16 12/23/16 12/23/16 06:59 14:59 22:59 06:59 14:59 22:59 Intake Total 480 ml 240 ml 240 ml Output Total 200 ml 250 ml Balance 480 ml 40 ml -10 ml Intake Oral 480 ml 240 ml 240 ml Output Urine Total 200 ml 250 ml # Bowel Movements 1 0 0 (Natasha Dumont) Result Diagram: 12/21/16 2355 12/20/16 1405 ROS General: Fatigue, Weakness, Other (10 point ROS done positives noted) Cardiac: Edema (lower extremities with special attention to his feet) Pulmonary: SOB (exertional) (Natasha Dumont) Physical Exam Physical Exam PHYSICAL EXAMINATION GENERAL: This is a well-developed, male who appears to be in no acute distress. He is alert and awake, talkative HEAD: Normocephalic without any lesion or mass noted. Facial features appear symmetric. OROPHARYNGEAL: Oropharynx without erythema or edema., Clear NECK: Supple. No nuchal rigidity or lymphadenopathy. Trachea midline without deviation. CARDIAC: Regular rhythm, regular rate, S1 and S2 are heard. Loud holosystolic murmur grade 4/6, heard throughout the precordium LUNGS: Mild diminished to auscultation bilaterally. Occasional cough, nonproductive ABDOMEN: Soft, nontender, no organomegaly or masses. Bowel sounds active EXTREMITIES: 2+ bilateral feet edema. 1+ bilateral lower extremities NEUROLOGICAL: Patient mood and affect appropriate. No focal deficit SKIN:Warm and dry (Natasha Dumont) A/P Assessment and Plan Vital signs reviewed, low-grade fever 99 1, BP transient this a.m. 98/54, denies any dizziness, telemetry shows sinus rhythm with bundle branch block heart rate in the 90s borderline 100 occasional isolated PVC noted, Labs reviewed, anemia hemoglobin 8.5, leukocytosis mild 11.2, BNP 686, Bowel regimen BM yesterday, monitor for any needs Pulmonary edema telemetry, medical management with diuretics, as well as hemodialysis usually 3 times a week Appreciate nephrology consult, patient is to receive extra treatment today, and restart his normal routine tomorrow Patient is up in chair, coverage to elevate lower extremities as much as possible, decreased edema noted in his lower extremities, both feet still with edema 2+ Cardiothoracic consult and evaluation, for dominantly medical management Walk test positive O2 sat dropped to 85, spoke to case management to set up for home O2 History of discitis, had recent epidural and lumbar abscess, positive for MRSA No obvious wound noted Appreciate ID input, continue with present treatment. Continue with Cubicin and rifampin End-stage renal disease on dialysis Nephrology has been consulted, input appreciated , hemodialysis and lab monitoring Valvular disease, loud systolic murmur noted but patient denies any pain Medical management, recent hospital stay and multiple cardiac arrest Diet controlled diabetes -Accuchecks with low dose ISS Continue ambulation and strengthening Nutritional renal diet, ADA, heart healthy SCDs for DVT prophylaxis Continue with HD, to have extra treatment this afternoon Walk test , needs set up for home O2 discussed with case management CM consult to resume C D/W RN D/W Dr. Recinos, seen on his behalf D/W pt (Natasha Dumont) Assessment and Plan seen, examined by myself, Dr Recinos, today Discussed with patient Discussed with nurse Possible discharge home tomorrow with home oxygen Discussed with mid level provider The exam, history, and the medical decision-making described in the above note were completed with the assistance of the mid-level provider. I reviewed the findings presented. I attest that I had a [id number] encounter with the patient on the same day, and personally performed and documented my assessment and findings in the medical record. (Puma Recinos MD) Natasha Dumont Dec 23, 2016 11:59 Puma Recinos MD Dec 23, 2016 20:13
--- NOTE | 2016-12-23 14:33 | HHI.FF ---
Face to Face Verification Diagnosis: (1) hx recent cardiac arrest (2) Pulmonary edema (3) CAD (coronary artery disease) (4) Aortic stenosis (5) ESRD (end stage renal disease) on dialysis (6) Discitis (7) Non-STEMI (non-ST elevated myocardial infarction) (8) Ventricular fibrillation (9) Coronary aneurysm (10) Pneumonia Home Health Nursing Order: Nursing assessment with vital signs Instructions: Home O2, 2 L NC I have seen patient Roland Conrad on 12/23/16. My clinical findings support the need for the requested home health care services because: Ltd mobility - disease progression Deconditioned w/ increased weakness I certify that my clinical findings support that this patient is homebound because: Poor cardiac reserve Patient needs home oxygen at 2 L, NC with ambulation and as needed at rest. Natasha Dumont Dec 23, 2016 14:33
[2016-12-23] MEDS ORDERED: OXYGENDME NAS.CANULA (15:09)
--- NOTE | 2016-12-23 16:24 | HHI.NPPN ---
Subjective History of Present Illness 71-year-old white male with history of coronary artery disease status post CABG October 21, 2016, epidural abscess, staphylococcal infection following with Dr. Freire, on hemodialysis, Friday, and Friday, patient has increasing swelling of the feet and was feeling tired and weak. Additional Remarks Patient seen after HD, alert, breathing is better, with nasal cannula. Review of Systems General Constitutional: Fatigue Objective Data Data 12/22/16 12/23/16 18:59 06:59 Intake Total 480 ml 480 ml Output Total 450 ml Balance 480 ml 30 ml Intake Oral 480 ml 480 ml Output Urine Total 450 ml # Bowel Movements 1 0 Vital Signs Date Time Temp Pulse Resp B/P Pulse Ox O2 Delivery O2 Flow Rate FiO2 12/23/16 16:00 98.3 98 20 126/61 91 12/23/16 12:00 98.3 98 20 126/61 91 12/23/16 10:33 92 Nasal Cannula 3.00 12/23/16 08:08 98 12/23/16 08:00 99.1 87 20 98/54 93 12/23/16 08:00 Nasal Cannula 3.00 12/23/16 04:00 Nasal Cannula 4.00 12/23/16 04:00 97.9 93 18 129/60 90 12/23/16 00:00 Nasal Cannula 3.00 12/23/16 00:00 97.9 87 18 125/59 92 12/22/16 20:00 85 12/22/16 20:00 Nasal Cannula 3.00 12/22/16 18:39 98.5 82 20 114/54 95 12/22/16 18:23 95 Nasal Cannula 3.00 -: 12/21/16 2355 12/20/16 1405 Physical Exam General Appearance: No Acute Distress, Comfortable Ears & Nose Ears & Nose Exam: Tympanic Membranes Normal Neck Neck Exam: Neck Supple Pulmonary Resp Exam: Breath Sounds Equal, No Distress, Crackles, Rhonchi, Decreased Bases , Diminished Breath Sounds Cardiology CV Exam: Regular Gastrointestinal/Abdomen GI Exam: Soft, Non-Tender, Bowel Sounds Present Musculoskeletal MS Exam: Joints Intact Integumentary Skin Exam: Intact Extremeties Extremities Exam: Moderate Edema, Dependent Edema Neurologic Neuro Exam: Alert, Awake Assessment/Plan Problem List: (1) ESRD (end stage renal disease) on dialysis Plan: Patient had HD today, extra, with 3 liters fluid removal. Tolerated well, BP is stable. Continue HD, TTS, on his regular days. (2) S/P CABG x 5 Plan: Continue to monitor (3) Diabetes Plan: Monitor blood glucose (4) Abscess in epidural space of thoracic spine Plan: Continue with daptomycin 950 mg every 48 hours, after dialysis on dialysis days. Remain afebrile. (5) Anemia Plan: Epogen with dialysis. Problem Qualifiers (1) Anemia: Qualified Code: N18.6 - Anemia in chronic kidney disease, on chronic dialysis Reinaldo Childs MD Dec 23, 2016 16:24
[2016-12-23] MEDS: CINACALCET HYDROCHLORIDE 30 MG TAB PO SCH (17:51)
[2016-12-24] MEDS: ACETAMINOPHEN/HYDROcodone 325 MG/7.5 MG TAB PO PRN ×2 (01:02→13:08)
[2016-12-24 04:00] VITALS: BP 96/55; PULSE 86; RESP 20; TEMP 98.1; O2SAT 93
[2016-12-24] MEDS: INSULIN ASPART SUPPLEMENTAL SCALE SQ SCH ×3 (05:45→17:13)
[2016-12-24 08:00] VITALS: BP 118/56; PULSE 92; RESP 20; TEMP 97.4; O2SAT 94
[2016-12-24] MEDS: AMIODARONE 200 MG TAB PO SCH (09:20)
[2016-12-24 09:22] VITALS: PULSE 83
--- NOTE | 2016-12-24 11:49 | HHI.PR ---
Subjective Remarks Out of a room for dialysis this a.m. (Natasha Dumont) Objective Objective Results - Vital Signs Date Time Temp Pulse Resp B/P Pulse Ox O2 Delivery O2 Flow Rate FiO2 12/24/16 09:22 Nasal Cannula 3.00 12/24/16 09:22 83 12/24/16 08:00 97.4 92 20 118/56 94 12/24/16 04:00 Nasal Cannula 3.00 12/24/16 04:00 98.1 86 20 96/55 93 12/24/16 00:00 Nasal Cannula 3.00 12/23/16 23:00 98.8 96 20 125/70 93 12/23/16 20:00 99.7 100 20 126/60 92 12/23/16 20:00 Nasal Cannula 3.00 12/23/16 17:53 98.5 103 20 137/65 95 12/23/16 16:58 95 Nasal Cannula 3.00 12/23/16 16:00 98.3 98 20 126/61 91 12/23/16 12:00 98.3 98 20 126/61 91 I/O 12/23/16 12/23/16 12/23/16 12/24/16 12/24/16 12/24/16 06:59 14:59 22:59 06:59 14:59 22:59 Intake Total 240 ml 480 ml 480 ml 240 ml Output Total 250 ml 3000 ml Balance -10 ml 480 ml -2520 ml 240 ml Intake Oral 240 ml 480 ml 480 ml 240 ml Output Urine Total 250 ml 0 ml Hemodialysis 3000 ml # Voids 2 1 # Bowel Movements 0 (Natasha Dumont) Result Diagram: 12/21/16 2355 12/20/16 1405 Physical Exam Physical Exam PHYSICAL EXAMINATION GENERAL: This is a well-developed, well-nourished male who appears to be in no acute distress. He is alert and awake, []. HEAD: Normocephalic without any lesion or mass noted. Facial features appear symmetric. OROPHARYNGEAL: Oropharynx without erythema or edema. NECK: Supple. No nuchal rigidity or lymphadenopathy. Trachea midline without deviation. CARDIAC: Regular rhythm, regular rate, S1 and S2 are heard. Murmur []; no gallops or rubs. LUNGS: Clear to auscultation bilaterally. [] wheeze, [] rhonchi or [] rale. No use of accessory muscles on inspiration or expiration. ABDOMEN: Soft, nontender, no organomegaly or masses. Bowel sounds are heard in all four quadrants. No rebound. No guarding. EXTREMITIES: [] edema. Pulses equal bilateral. [] cyanosis. NEUROLOGICAL: Patient mood and affect appropriate. No focal deficit SKIN:Warm and moist (Natasha Dumont) A/P Assessment and Plan Vital signs reviewed, fever resolved 98 1 this a.m., BP 96/55 Bowel regimen BM within the last 2 days, monitor for any needs Patient down for dialysis this morning getting back on his routine Pulmonary edema telemetry, medical management with diuretics, as well as hemodialysis usually 3 times a week Appreciate nephrology consult, routine dialysis today, patient has end-stage renal disease Encourage activity and elevation of lower extremities when up in chair Set up for home O2 Walk test positive O2 sat dropped to 85, spoke to case management to set up for home O2 History of discitis, had recent epidural and lumbar abscess, positive for MRSA No obvious wound noted Appreciate ID input, continue with present treatment. Continue with Cubicin and rifampin Valvular disease, loud systolic murmur noted but patient denies any pain Medical management, recent hospital stay and multiple cardiac arrest Diet controlled diabetes -Accuchecks with low dose ISS SCDs for DVT prophylaxis Continue with HD, to have extra treatment this afternoon Walk test , needs set up for home O2 done, planned for discharge today after dialysis complete if medically stable CM consult to resume [facility] D/W RN D/W Dr. Recinos, seen on his behalf D/W pt (Natasha Dumont) Assessment and Plan seen, examined by myself, Dr Recinos, today Discussed with patient Home on the following Cubicin 950 mg IV q48H Stop Treatment: Jan 27, 2017 Administer Medication Rifampin 300 mg po BID Stop Treatment: Jan 27, 2017 Discussed with mid level provider The exam, history, and the medical decision-making described in the above note were completed with the assistance of the mid-level provider. I reviewed the findings presented. I attest that I had a [id number] encounter with the patient on the same day, and personally performed and documented my assessment and findings in the medical record. (Puma Recinos MD) Natasha Dumont Dec 24, 2016 11:49 Puma Recinos MD Dec 24, 2016 15:49
[2016-12-24] MEDS: EPOETIN ALFA 10,000 UNITS/ML VIAL IV PRN (11:56)
[2016-12-24 12:00] VITALS: BP 115/58; PULSE 97; RESP 20; TEMP 98.1; O2SAT 93
[2016-12-24 12:55] VITALS: O2SAT 93
[2016-12-24] MEDS: ASPIRIN 325 MG TAB PO SCH (13:07)
[2016-12-24] MEDS: VITAMIN B CMPLX/VITC/FOLIC AC CAP PO SCH (13:07)
[2016-12-24] MEDS: DOCUSATE SODIUM 50 MG/SENNA 8.6 MG TAB PO SCH (13:07)
[2016-12-24] MEDS: RIFAMPIN 150 MG CAP PO SCH (13:07)
[2016-12-24] MEDS: CALCITRIOL 0.25 MCG CAP PO SCH (13:08)
[2016-12-24] MEDS: SODIUM CHLORIDE 0.9% FLUSH 10 ML FLUSH IV FLUSH SCH (13:08)
--- NOTE | 2016-12-24 14:49 | HHI.IDPN ---
Subjective Subjective Remarks 71 year old male, admitted with SOB, Dx pulmonary edema. 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 Vital Signs Date Time Temp Pulse Resp B/P Pulse Ox O2 Delivery O2 Flow Rate FiO2 12/24/16 12:55 93 Nasal Cannula 3.00 12/24/16 12:00 98.1 97 20 115/58 93 12/24/16 09:22 Nasal Cannula 3.00 12/24/16 09:22 83 12/24/16 08:00 97.4 92 20 118/56 94 12/24/16 04:00 Nasal Cannula 3.00 12/24/16 04:00 98.1 86 20 96/55 93 12/24/16 00:00 Nasal Cannula 3.00 12/23/16 23:00 98.8 96 20 125/70 93 12/23/16 20:00 99.7 100 20 126/60 92 12/23/16 20:00 Nasal Cannula 3.00 12/23/16 17:53 98.5 103 20 137/65 95 12/23/16 16:58 95 Nasal Cannula 3.00 12/23/16 16:00 98.3 98 20 126/61 91 12/23/16 12/23/16 12/24/16 14:59 22:59 06:59 Intake Total 480 ml 480 ml 240 ml Output Total 3000 ml Balance 480 ml -2520 ml 240 ml Intake Oral 480 ml 480 ml 240 ml Output Urine Total 0 ml Hemodialysis 3000 ml # Voids 2 1 . Laboratory Tests Test 12/23/16 20:00 Lactic Acid Level 0.9 mmol/L Physical Exam GENERAL: Awake and laert, in no apparent distress. SKIN: No rashes, ecchymoses HEAD: Atraumatic. Normocephalic. No temporal or scalp tenderness. EYES: Pupils equal round and reactive. No petchia or hemorrhage. No scleral icterus. No injection or drainage. ENT: Nose without bleeding, purulent drainage or septal hematoma. Moist oral mucosa, no oral lesions NECK: Trachea midline. Supple, nontender, no meningeal signs. CARDIOVASCULAR: Regular, with murmur at base of heart, no rub. has dressing on his sternal incision RESPIRATORY: CT in place. Decreased BS at bases GASTROINTESTINAL: Abdomen soft, non-tender, nondistended. (+) BS MUSCULOSKELETAL: Extremities without clubbing, cyanosis, or edema. No calf tenderness. Negative Homans sign bilaterally. AVF LUE looks ok NEUROLOGICAL: Awake and alert. Grossly non focal Psych: cooperative IV line sites with no e.o infection. 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 - end date Jan 27 I have filled out the form OK for D/C once his Abx have been confirmed Explained plan to patient Angela Farmer MD Dec 24, 2016 14:49
--- NOTE | 2016-12-24 14:52 | HHI.FF ---
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 Coded Allergies: *MDRO Multi-Drug Resistant Organism (Verified Adverse Reaction, Unknown, ) MRSA PCR screen POSITIVE - 03/13/16 MRSA (blood)-10/29/16 Administer Medication Cubicin 950 mg IV q48H Stop Treatment: Jan 27, 2017 Administer Medication Rifampin 300 mg po BID Stop Treatment: Jan 27, 2017 Additional Information Venous access: PICC Line Additional Instructions [x] Peripheral flush and dressing changes per protocol [x] Implanted port and central supervisor facepiece line: * Implanted port: 10 ml Normal Saline followed by 5 ml Heparin 100 units/ml Heparin flush after each use and monthly to maintain. [] May leave port accessed during therapy. [] May leave peripheral site accessed for duration of therapy. [x] If patient has SOB or respiratory distress, check oxygen saturation. If less than 90% or clinical signs of respiratory distress, administer oxygen at 2 L/min. via nasal cannula and notify physician. [x] Anaphylaxis/Reaction orders: * Stop infusion. * Keep IV line open with saline flush. * Notify physician. * Monitor vital signs every 15 minutes until symptoms resolve. * Check Oxygen saturation; Oxygen at 2 L/min. via nasal cannula if less than 90% or clinical signs of respiratory distress. * Administer diphenhydramine (Benadryl) 25 mg IV STAT, (unless patient has received as pre-med). May repeat once, if necessary. * Solu-Cortef 250 mg IVP over 30-60 seconds, use 100 mg vials for each dissolution. * Epinephrine (1mg/1 ml) 0.3 mg subcutaneously or IVP now with any signs of respiratory distress. * Check with physician for new additional pre-med orders if patient is re- challenged or re-treated. [x] May remove PICC line when treatment complete, after confirming with Physician. [x] If the patient is admitted to the hospital, the ED, or transferred via [facility] , complete transfer form including medication reconciliation order sheet. Laboratory Tests Weekly Labs: CBC w/diff, CRP (CBC w/diff, CRP, LFT's (Hepatic function test), SED Rate (labs every Friday, copy to me; please make sure that during his HD days, cubicin dose needs to be given after his HD)), LFT's (Hepatic function test) (CBC w/diff, CRP, LFT's (Hepatic function test), SED Rate (labs every Friday, copy to me; please make sure that during his HD days, cubicin dose needs to be given after his HD)), SED Rate Angela Farmer MD Dec 24, 2016 14:52
[2016-12-24] MEDS ORDERED: DAPT500P IV (15:51)
[2016-12-24 16:00] VITALS: BP 109/53; PULSE 91; RESP 20; TEMP 98.6; O2SAT 94
--- NOTE | 2016-12-24 16:37 | HHI.NPPN ---
Subjective History of Present Illness 71-year-old white male with history of coronary artery disease status post CABG October 21, 2016, epidural abscess, staphylococcal infection following with Dr. Freire, on hemodialysis, Friday, and Friday, patient has increasing swelling of the feet and was feeling tired and weak. Additional Remarks Patient is alert, feeling better, want to go home. Review of Systems General Constitutional: Fatigue Objective Data Data 12/23/16 12/24/16 18:59 06:59 Intake Total 480 ml 720 ml Output Total 3000 ml 0 ml Balance -2520 ml 720 ml Intake Oral 480 ml 720 ml Output Urine Total 0 ml Hemodialysis 3000 ml # Voids 3 Vital Signs Date Time Temp Pulse Resp B/P Pulse Ox O2 Delivery O2 Flow Rate FiO2 12/24/16 12:55 93 Nasal Cannula 3.00 12/24/16 12:00 98.1 97 20 115/58 93 12/24/16 09:22 Nasal Cannula 3.00 12/24/16 09:22 83 12/24/16 08:00 97.4 92 20 118/56 94 12/24/16 04:00 Nasal Cannula 3.00 12/24/16 04:00 98.1 86 20 96/55 93 12/24/16 00:00 Nasal Cannula 3.00 12/23/16 23:00 98.8 96 20 125/70 93 12/23/16 20:00 99.7 100 20 126/60 92 12/23/16 20:00 Nasal Cannula 3.00 12/23/16 17:53 98.5 103 20 137/65 95 12/23/16 16:58 95 Nasal Cannula 3.00 -: 12/21/16 2355 12/20/16 1405 Physical Exam General Appearance: No Acute Distress, Comfortable Ears & Nose Ears & Nose Exam: Tympanic Membranes Normal Neck Neck Exam: Neck Supple Pulmonary Resp Exam: Breath Sounds Equal, No Distress, Crackles, Rhonchi, Decreased Bases , Diminished Breath Sounds Cardiology CV Exam: Regular Gastrointestinal/Abdomen GI Exam: Soft, Non-Tender, Bowel Sounds Present Musculoskeletal MS Exam: Joints Intact Integumentary Skin Exam: Intact Extremeties Extremities Exam: Moderate Edema, Dependent Edema Neurologic Neuro Exam: Alert, Awake Assessment/Plan Problem List: (1) ESRD (end stage renal disease) on dialysis Plan: Patient had HD today, extra, with 3 liters fluid removal. Feeling better, breathing improved. Remain afebrile. ID follow up noted. Will need to continue Cubicin. If D/C, will continue HD as scheduled. (2) S/P CABG x 5 Plan: Continue to monitor (3) Diabetes Plan: Monitor blood glucose (4) Abscess in epidural space of thoracic spine Plan: Continue with daptomycin 950 mg every 48 hours, after dialysis on dialysis days. Remain afebrile. (5) Anemia Plan: Epogen with dialysis. Problem Qualifiers (1) Anemia: Qualified Code: N18.6 - Anemia in chronic kidney disease, on chronic dialysis Reinaldo Childs MD Dec 24, 2016 16:37
[2016-12-24] MEDS: DAPTOMYCIN IV SCH (17:11)
[2016-12-24] MEDS: CINACALCET HYDROCHLORIDE 30 MG TAB PO SCH (17:11)
[2016-12-24] MEDS: SODIUM CHLORIDE 0.9% IV SCH (17:11)
== END 2016-12-24 18:56 | disposition home health service (06) | DRG 291 ==
LOC: NEPC 13:19 → NEDA 15:54 → NEDH 19:44 → N04B 23:35
PROVIDERS: ADMIT Specialist; ATTEND Specialist
PROC: 5A1D60Z (ICD-10-PCS; principal; 2016-12-21)
DX: I13.2 Hypertensive heart and chronic kidney disease with heart failure and with stage 5 chronic kidney disease, or end stage renal disease (principal); N18.6 End stage renal disease; G06.2 Extradural and subdural abscess, unspecified; D69.6 Thrombocytopenia, unspecified; E11.22 Type 2 diabetes mellitus with diabetic chronic kidney disease; I50.9 Heart failure, unspecified; I35.0 Nonrheumatic aortic (valve) stenosis; K21.9 Gastro-esophageal reflux disease without esophagitis; E78.5 Hyperlipidemia, unspecified; D63.1 Anemia in chronic kidney disease; R01.1 Cardiac murmur, unspecified; M46.46 Discitis, unspecified, lumbar region; Z96.611 Presence of right artificial shoulder joint; I25.10 Atherosclerotic heart disease of native coronary artery without angina pectoris; Z86.14 Personal history of Methicillin resistant Staphylococcus aureus infection; Z86.74 Personal history of sudden cardiac arrest; Z95.1 Presence of aortocoronary bypass graft; Z99.2 Dependence on renal dialysis; Z79.82 Long term (current) use of aspirin
CPT/HCPCS: 71010; 80053; 82948; 83605; 83880; 84484; 85025; 90935; 93005; 96374; 96375; 99285; J0878; J1815; P9047; Q4081

== ENCOUNTER 2016-12-31 19:32 | Inpatient (IN) | payer MEDICARE, BC ==
[~2016-12-31 19:32] MED LIST changes: +DAPT500P IV; -FISH100020 PO; +OXYGENDME NAS.CANULA
[2016-12-31 19:36] VITALS: BP 103/52; PULSE 79; RESP 16; TEMP 97.9; O2SAT 100
--- NOTE | 2016-12-31 20:08 | PD ---
Physical Exam Date Seen by Provider: Dec 31, 2016 Time Seen by Provider: 20:05 Narrative 71 YOWM C/O SOB , BACK PAIN AND WORSENING WEAKNESS. KS GETTING WORSE ON 4 L NC VS REVIEWED AWAITING BED PLACEMENT Data Data Last Documented VS Vital Signs Date Time Temp Pulse Resp B/P Pulse Ox O2 Delivery O2 Flow Rate FiO2 12/31/16 19:36 97.9 79 16 103/52 100 MDM Supervised Visit with TONY: Kei Farrar Dec 31, 2016 20:08
[2016-12-31 22:02] VITALS: BP 142/66; PULSE 92; RESP 18; O2SAT 95
--- NOTE | 2016-12-31 22:09 | PD ---
HPI Chief Complaint: Respiratory Symptoms Time Seen by Provider: 21:47 Travel History International Travel<30 days: No Contact w/Intl Traveler<30days: No Traveled to known affect area: No History of Present Illness HPI The patient is a 71-year-old male who presents to [facility] emergency Department with a history of reportedly being postop from a 5 vessel CABG on November 20. He reports that after having the surgery he had difficulty with fluid in his lungs. He reports that he has had a history of chronic renal failure and is on dialysis Friday, , and Friday. He reports that with dialysis he was able to get most of the fluid out of his lungs. He reports that his lower extremity edema has improved over time over the last 2 weeks. The patient reports that in spite of this he has had increased shortness of breath and an intermittent dry cough. He reports that a chest x-ray was recently done which showed no acute abnormality. The patient on arrival is noted to have O2 saturations of 86% on room air. He denies being on any O2 at home. On review of systems otherwise, the patient denies any recent fevers, neck pain, chest pain, abdominal pain, vomiting, diarrhea, or neurologic symptoms. The patient incidentally reports on review of systems that when he did his dialysis today from sitting in the chair he developed a back pain in the upper back. [facility], [facility] Past Medical History Narrative Medical The patient's past medical history is significant for chronic renal failure on hemodialysis for the last 70 years, hyperlipidemia, history of congestive heart failure, diabetes mellitus, acid reflux, hypertension, prior history of having a septic right shoulder joint, history of discitis, history of valvular heart disease with an underlying heart murmur, history of having a PICC line in place currently related to sepsis, bacteremia of undetermined origin. He is currently on antibiotic for this. Hx Anticoagulant Therapy: Yes (ASPIRIN 325MG) Anemia: Yes Arthritis: Yes (RIGHT SHOULDER) Autoimmune Disease: No Anxiety: No Depression: No Heart Rhythm Problems: Yes (V-TACH) Cancer: No Cardiovascular Problems: Yes High Cholesterol: Yes Congestive Heart Failure: No Diabetes: No Dialysis: Yes (, , SAT.) Diminished Hearing: No Endocrine: Yes Gastrointestinal Disorders: Yes (umbilical hernia) GERD: No Genitourinary: Yes Hepatitis: No Hiatal Hernia: No Hypertension: Yes (HISTORY) Immune Disorder: No Implanted Vascular Access Dvce: Yes Musculoskeletal: Yes Neurologic: No Psychiatric: No Reproductive: No Respiratory: Yes Immunizations Current: Yes Renal Failure: Yes ( ) Sleep Apnea: No Thyroid Disease: No Past Surgical History Narrative Surgical The patient's past surgical history is significant for an umbilical hernia repair, AV fistula placement left forearm, arthroplasty of the right shoulder, CT scan guided biopsies of the L1-L2 disc space, cardiac catheterization, coronary artery bypass grafting 5 vessels November 20, 2016. Abdominal Surgery: Yes (UMBILICAL HERNIA REPAIR/ PERITONEAL DIALYSIS) Arteriovenous Shunt: Yes (LEFT ARM DIALYSIS FISTULA) Body Medical Devices: STERNAL WIRES Cardiac Surgery: Yes (CABG) Ear Surgery: No Endocrine Surgery: No Eye Surgery: No Genitourinary Surgery: No Gynecologic Surgery: No Oral Surgery: No Pacemaker: No Thoracic Surgery: No Other Surgery: Yes (left arm dialysis shunt) Social History Alcohol Use: Yes (Rarely) Tobacco Use: No Substance Use: No Allergies-Medications (Allergen,Severity, Reaction): Coded Allergies: *MDRO Multi-Drug Resistant Organism (Verified Adverse Reaction, Unknown, ) MRSA PCR screen POSITIVE - 03/13/16 MRSA (blood)-10/29/16 Reported Meds & Prescriptions Reported Meds & Active Scripts Active Cubicin Inj (Daptomycin) 500 Mg Bag 950 Mg IV Q48H Must dilute in appropriate IV Fluid prior to administration Oxygen (O2) Device 2 Liter GIORGIO.CANULA CONTINUOUS PRN Oxygen Concentrator Portable Gaseous 2 L/min via Nasal Canula Continuous For 99 months Amiodarone (Amiodarone HCl) 200 Mg Tab 200 Mg PO Q12HR Ask linderman machine operator if refills needed beyond 3 months Velphoro (Sucroferric Oxyhydroxide) 500 Mg Chew 500 Mg CHEW TIDPC Percocet (Oxycodone-Acetaminophen) 5-325 mg Tab 1 Tab PO Q6H PRN Reported Rifampin 300 Mg Cap 300 Mg PO DAILY Temazepam 30 Mg Cap 30 Mg PO HS PRN Vielka-Jitendra (B-Complex W/ C & Folic Acid) 1 Tab 1 Tab PO DAILY Aspirin 325 Mg Tab 325 Mg PO DAILY Colace (Docusate Sodium) 100 Mg Capsule 100 Mg PO DAILY Sensipar (Cinacalcet) 60 Mg Tab 60 Mg PO DAILY@1600 Calcitriol 0.5 Mcg Cap 0.5 Mcg PO DAILY Review of Systems Except as stated in HPI: all other systems reviewed are Neg General / Constitutional: No: Fever Eyes: No: Visual changes HENT: No: Headaches Cardiovascular: No: Chest Pain or Discomfort Respiratory: Positive: Cough, Shortness of Breath Gastrointestinal: No: Nausea, Vomiting, Diarrhea, Abdominal Pain Genitourinary: No: Dysuria Musculoskeletal: Positive: Myalgias, Pain Skin: No Rash Neurologic: No: Weakness Psychiatric: No: Depression Endocrine: No: Polydipsia Hematologic/Lymphatic: No: Easy Bruising Physical Exam Narrative General: The patient is a well-developed well-nourished male in no acute distress. O2 saturations on room air 86%. Head and Neck exam: Head is normocephalic atraumatic. Eyes: EOMI, pupils are equal round and reactive to light. Nose: Midline septum with pink mucous membranes Mouth: Dentition unremarkable. Moist mucus membranes. Posterior oropharynx is not erythematous. No tonsillar hypertrophy. Uvula midline. Airway patent. Neck: No palpable lymphadenopathy. No nuchal rigidity. No thyromegaly. Cardiovascular: Regular rate and rhythm with a 2 to 3/6 systolic murmur best audible at the second intercostal space right side. No gallops or rubs. Lungs: Clear to auscultation bilaterally. No wheezes, rhonchi, or rales. Abdomen: Soft, without tenderness to palpation in all 4 quadrants of the abdomen. No guarding, rebound, or rigidity. Normal bowel sounds are audible. No tenderness on palpation of McBurney's point. Negative Phoenix sign. Extremities: No clubbing or cyanosis. The patient has trace pedal edema bilateral lower extremities. 2+ pulses in all 4 extremities. No calf tenderness on palpation. Back: No spinous process tenderness to palpation. No costovertebral angle tenderness to palpation. The patient has tenderness on palpation that he reports underneath bilateral scapula. This is involving the musculature. There is no flail segment, step-off or crepitus. No erythema or ecchymosis. Neurologic Exam: Grossly nonfocal. Skin Exam: No rash noted. Intact skin that is warm and dry. Data Data Last Documented VS Vital Signs Date Time Temp Pulse Resp B/P Pulse Ox O2 Delivery O2 Flow Rate FiO2 12/31/16 22:39 16 95 Nasal Cannula 4 12/31/16 22:02 92 142/66 12/31/16 19:36 97.9 Orders Electrocardiogram (12/31/16 22:04) Complete Blood Count With Diff (12/31/16 22:04) Comprehensive Metabolic Panel (12/31/16 22:04) Creatine Kinase (Cpk) (12/31/16 22:04) Ckmb (Isoenzyme) Profile (12/31/16 22:04) Troponin I (12/31/16 22:04) B-Type Natriuretic Peptide (12/31/16 22:04) Prothrombin Time / Inr (Pt) (12/31/16 22:04) Act Partial Throm Time (Ptt) (12/31/16 22:04) C-Reactive Protein (Crp) (12/31/16 22:04) Lipase (12/31/16 22:04) D-Dimer (12/31/16 22:04) Magnesium (Mg) (12/31/16 22:04) Thyroid Stimulating Hormone (12/31/16 22:04) Chest, Single Ap (12/31/16 22:04) Iv Access Insert/Monitor (12/31/16 22:04) Ecg Monitoring (12/31/16 22:04) Oxygen Administration (12/31/16 22:04) Oximetry (12/31/16 22:04) Ventilation & Perfusion Scan (12/31/16 ) Lactic Acid Sepsis Protocol (12/31/16 22:26) Blood Culture (12/31/16 22:26) Ceftriaxone Inj (Rocephin Inj) (01/01/17 00:15) Azithromycin Inj (Zithromax Inj) (01/01/17 00:15) Admit Order (Ed Use Only) (01/01/17 00:04) Sodium Chlor 0.9% 250 Ml Inj (Ns 250 Ml (01/01/17 00:15) Labs Laboratory Tests Test 12/31/16 12/31/16 22:25 22:35 White Blood Count 12.5 TH/MM3 Red Blood Count 3.20 MIL/MM3 Hemoglobin 10.1 GM/DL Hematocrit 30.8 % Mean Corpuscular Volume 96.3 FL Mean Corpuscular Hemoglobin 31.4 PG Mean Corpuscular Hemoglobin 32.6 % Concent Red Cell Distribution Width 18.6 % Platelet Count 493 TH/MM3 Mean Platelet Volume 7.3 FL Neutrophils (%) (Auto) 79.8 % Lymphocytes (%) (Auto) 6.8 % Monocytes (%) (Auto) 8.3 % Eosinophils (%) (Auto) 4.1 % Basophils (%) (Auto) 1.0 % Neutrophils # (Auto) 10.0 TH/MM3 Lymphocytes # (Auto) 0.8 TH/MM3 Monocytes # (Auto) 1.0 TH/MM3 Eosinophils # (Auto) 0.5 TH/MM3 Basophils # (Auto) 0.1 TH/MM3 CBC Comment DIFF FINAL Differential Comment Prothrombin Time 11.7 SEC Prothromb Time International 1.1 RATIO Ratio Activated Partial 36.9 SEC Thromboplast Time D-Dimer Quantitative (PE/DVT) 1.85 MG/L FEU Sodium Level 136 MEQ/L Potassium Level 3.7 MEQ/L Chloride Level 100 MEQ/L Carbon Dioxide Level 29.0 MEQ/L Anion Gap 7 MEQ/L Blood Urea Nitrogen 25 MG/DL Creatinine 4.63 MG/DL Estimat Glomerular Filtration 13 ML/MIN Rate Random Glucose 96 MG/DL Calcium Level 11.5 MG/DL Magnesium Level 2.3 MG/DL Total Bilirubin 0.1 MG/DL Aspartate Amino Transf 21 U/L (AST/SGOT) Alanine Aminotransferase 27 U/L (ALT/SGPT) Alkaline Phosphatase 85 U/L Total Creatine Kinase 24 U/L Troponin I 0.03 NG/ML C-Reactive Protein 13.00 MG/DL Total Protein 6.3 GM/DL Albumin 2.6 GM/DL Lipase 69 U/L Thyroid Stimulating Hormone 13.800 uIU/ML 3rd Gen B-Type Natriuretic Peptide 473 PG/ML Lactic Acid Level 0.9 mmol/L MDM Medical Decision Making Medical Screen Exam Complete: Yes Emergency Medical Condition: Yes Medical Record Reviewed: Yes Interpretation(s) Last Impressions Chest X-Ray 12/31/162203 Signed Impressions: Service Date/Time: Saturday, December 31, 2016 22:23 - CONCLUSION: Right base infiltrate slightly worse in the interim, superimposed on mostly chronic appearing subpleural interstitial lung disease. Geovanni Naranjo MD Differential Diagnosis Congestive heart failure exacerbation, versus pulmonary embolism, versus pneumonia, versus pleural effusion Narrative Course During the course of the patients emergency department visit, the patients history, examination, and differential diagnosis were reviewed with the patient. The patient had IV access obtained and blood work sent for analysis. The patient was placed on a pvc monitor with oximetry and blood pressure monitoring. The patient had an EKG done on arrival that shows a sinus rhythm at 91, moderate intraventricular conduction delay with a QRS duration is 128 ms , QTC 408 ms, no acute ST segment elevation. Nonspecific ST-T wave abnormalities. The patient was initially provided nasal cannula O2 which brought his oxygen saturation up to 94%. The patients laboratory studies were reviewed and remarkable for a white count of 12.5, hemoglobin 10.1, platelets 493 with 79.8 neutrophils, lymphocytes 6.8, monocytes 4.1, CMP is remarkable for a BUN of 25, creatinine 4.63, GFR 13, calcium 11.5, lactic acid 0.9, CPK 24, troponin I is 0.03, C-reactive protein 13 , lipase 69, TSH 13.8, BNP is 473, PT 11.7, PTT 36.9, d-dimer 1.85. Radiology studies were reviewed and remarkable for a chest x-ray that shows a right base infiltrate that is slightly worse in the interim, superimposed on mostly chronic appearing subpleural interstitial lung disease, VQ scan is low probability for PE. Given the concern for pneumonia, the patient was given Rocephin 1 g IV, Zithromax 500 IV. The patients results were discussed with the patient, including the plan of care. I explained that further testing and/ or monitoring is indicated based on the patients history, examination, and/ or laboratory findings. Therefore, I recommended admission for additional evaluation. The patient expressed understanding and was agreeable with this plan. The patient was admitted to the hospital in stable condition and [facility]. Sepsis Criteria SIRS Criteria (2 or more): WBC > 52379, < 4000 or > 10% bands Physician Communication Physician Communication The patient's case was discussed with Geovanni Cadet. He did agree to admit the patient for further evaluation and treatment at this time. Diagnosis Primary Impression: Pneumonia Qualified Code: J18.1 - Pneumonia of right lower lobe due to infectious organism Additional Impressions: Hypoxemia Hypothyroidism Qualified Code: E03.9 - Hypothyroidism, unspecified type Admitting Information Admitting Physician Requests: Admit Kelsea Bucio MD Dec 31, 2016 22:09
[2016-12-31 22:39] VITALS: RESP 16; O2SAT 95
--- NOTE | 2016-12-31 22:50 | RADRPT ---
EXAM DATE/TIME: 12/31/2016 22:23 [facility] COMPARISON: CHEST SINGLE AP, December 20, 2016, 14:21. INDICATIONS : Shortness of breath. MEDICAL HISTORY : Renal failure, chronic. Diabetes mellitus type 1. Hypertension SURGICAL HISTORY : CABG. Umbilical hernia repair ENCOUNTER: Initial ACUITY: 1 week PAIN SCORE: 7/10 LOCATION: Bilateral chest FINDINGS: Diffuse subpleural infiltrates are seen of both lungs, similar to before. An area of focally more den se consolidation is seen of the right lung base, slightly worse in the interim. Small right pleural e ffusion suspected, not significantly changed. I don't see a pneumothorax. Heart size stable, upper limits of normal. There is been previous median sternotomy. Thoracic aorta i s tortuous. CONCLUSION: Right base infiltrate slightly worse in the interim, superimposed on mostly chronic appearing subpleu ral interstitial lung disease. Geovanni Naranjo MD on December 31, 2016 at 22:48 Board Certified Radiologist. This report was verified electronically.
[2016-12-31 23:18] LABS: BASOPHIL # 0.1 TH/MM3 (0-0.2); EOSINOPHIL # 0.5 TH/MM3 (0-0.4); EOSINOPHIL % 4.1 % (0.0-4.0); HEMATOCRIT 30.8 % (39.0-51.0); HEMO FLAGS DIFF FINAL; LYMPH % 6.8 % (9.0-44.0); LYMPHOCYTE # 0.8 TH/MM3 (1.0-4.8); MEAN CELL VOLUME 96.3 FL (80.0-100.0); MEAN CORPUSCULAR HEMOGLOBIN 31.4 PG (27.0-34.0); MEAN CORPUSCULAR HGB CONC 32.6 % (32.0-36.0); MONO % 8.3 % (0.0-8.0); NEUT % 79.8 % (16.0-70.0); PLATELET COUNT 493 TH/MM3 (150-450); RED CELL DISTRIBUTION WIDTH 18.6 % (11.6-17.2); WHITE BLOOD COUNT 12.5 TH/MM3 (4.0-11.0)
[2016-12-31 23:35] LABS: APTT (PATIENT) 36.9 SEC (24.3-30.1); INTERNATIONAL NORMALIZED RATIO 1.1 RATIO; PROTHROMBIN TIME - PATIENT 11.7 SEC (9.8-11.6)
[2016-12-31 23:41] LABS: ALT (GPT) 27 U/L (12-78); ANION GAP 7 MEQ/L (5-15); AST (GOT) 21 U/L (15-37); BLOOD UREA NITROGEN 25 MG/DL (7-18); CHLORIDE 100 MEQ/L (98-107); GLOMERULAR FILTRATION RATE 13 ML/MIN (>89); MAGNESIUM 2.3 MG/DL (1.5-2.5); POTASSIUM 3.7 MEQ/L (3.5-5.1); SODIUM (NA) 136 MEQ/L (136-145)
[2016-12-31 23:51] LABS: ALKALINE PHOSPHATASE 85 U/L (45-117); TOTAL BILIRUBIN ADULT 0.1 MG/DL (0.2-1.0)
[2016-12-31 23:52] LABS: CREATINE KINASE 24 U/L (39-308)
[2017-01-01] VITALS (12 sets, daily range): BP systolic 119–152; BP diastolic 57–86; PULSE 81–93; RESP 16–20; TEMP 97.6–98.7; O2SAT 92–100
--- NOTE | 2017-01-01 | RADRPT ---
EXAM DATE/TIME: 12/31/2016 23:16 [facility] COMPARISON: CHEST SINGLE AP, December 31, 2016, 22:23. INDICATIONS : Shortness of breath for 1 day. DOSE: 8.1 mCi Tc99m MAA IV 0.5 mCi Tc99m DTPA aerosol MEDICAL HISTORY : Renal failure, acute. Hypertension. SURGICAL HISTORY : CABG Right shoulder. ENCOUNTER: Initial ACUITY: 1 day PAIN SCALE: 3/10 LOCATION: Bilateral chest TECHNIQUE: Following five minutes of tidal breathing of DTPA aerosol, planar images of the lungs were performed in eight projections. The patient was then injected with MAA, and eight-view perfusion scan was perf ormed. FINDINGS: There is a homogeneous pattern of aerosol delivery to the periphery of both lungs. No focal ventilat ory defects are seen. The perfusion lung scan demonstrates a homogenous pattern of uptake in both lungs. No segmental or s ubsegmental defects are seen. Chest x-ray demonstrates diffuse interstitial infiltrates throughout both lungs and consolidation in the right lower lung. CONCLUSION: Low probability pulmonary embolism. Nadir Serrano MD on December 31, 2016 at 23:58 Board Certified Radiologist. This report was verified electronically.
[2017-01-01] MEDS ORDERED: SODIUM CHLOR 0.9% 250 ML INJ 250 ML IV ONE (00:15)
[2017-01-01] MEDS ORDERED: AZITHROMYCIN INJ 500 MG in SODIUM CHLOR 0.9% 250 ML INJ 250 ML IV ONE (00:15)
[2017-01-01] MEDS ORDERED: cefTRIAXone INJ 1,000 MG in SODIUM CHLORIDE 0.9% INJ 100 ML IV ONE (00:15)
[2017-01-01] MEDS ORDERED: SODIUM CHLORIDE 0.9% FLUSH 10 ML FLUSH IV FLUSH PRN ×2 (01:30→12:00)
[2017-01-01] MEDS ORDERED: ONDANSETRON HCL 4 MG/2 ML VIAL IV PRN ×2 (01:30→12:00)
[2017-01-01] MEDS ORDERED: RESP: ALBUTEROL 2.5 MG/IPRATROPIUM 0.5 MG NEB (PRN) INH (01:30)
[2017-01-01] MEDS ORDERED: ACETAMINOPHEN 325 MG TAB PO PRN ×2 (01:30→12:00)
[2017-01-01] MEDS ORDERED: ACETAMINOPHEN/HYDROcodone 325 MG/5 MG TAB PO ONE (02:15)
[2017-01-01] MEDS: SODIUM CHLORIDE 0.9% FLUSH 10 ML FLUSH IV FLUSH SCH ×2 (09:35→21:01)
[2017-01-01] MEDS: LEVOTHYROXINE SODIUM 50 MCG TAB PO SCH (09:45)
[2017-01-01] MEDS: HEPARIN SODIUM - SQ 10,000 UNITS/ML VIAL SQ SCH ×2 (10:12→21:00)
--- NOTE | 2017-01-01 10:37 | MH ---
cc: RAGHAV ROWE MD DATE OF ADMISSION: 01/01/2017 CHIEF COMPLAINT Cough, congestion and respiratory symptom. HISTORY OF PRESENT ILLNESS This is a 71-year male with past medical and surgical history significant for chronic renal failure and hemodialysis dependent for the last 69 years, hyperlipidemia, history of congestive heart failure, diabetes mellitus, acid reflux, having septic right shoulder joint, history of diskitis, history of valvular heart disease with underlying heart murmur, history of having a PICC line in place currently related to sepsis, bacteremia of undetermined origin and is currently on antibiotic for this, history of ventricular tachycardia. He has a history of bypass surgery, five-vessel on November 20, 2016, AV fistula placement in left forearm, arthroplasty of the right shoulder, CT-guided biopsy of the L1-L2 disk space, cardiac catheterization, umbilical hernia repair, peritoneal dialysis in the past. The patient came to the ER at [facility] complaining of cough, congestion. He is status post five-vessel bypass surgery on November 20, 2016 and he reports that after having surgery he had difficulty with fluid in his lungs. He reported that he has a history of chronic renal failure and getting dialysis Friday, and Friday. He reports that with dialysis he was unable to get most of his fluid out of the lung. He reports that his lower extremity edema has improved over time over the past 2 weeks. The patient reports that in spite of this he has had increased shortness of breath and intermittent tight cough. Chest x-ray was done recently and shows no acute abnormality. The patient on arrival was noted to have oxygen saturation of 86% on room air. He denies any chest pain, any abdominal pain, any nausea or vomiting, diarrhea, any neurological symptoms or any genitourinary symptoms, other than that nothing significant. PAST MEDICAL-SURGICAL HISTORY As dictated above. SOCIAL HISTORY Denies any alcohol or drug abuse. Lives at home with a young couple and he is retired. FAMILY HISTORY Nothing significant. ALLERGIES NO KNOWN DRUG ALLERGIES. MEDICATIONS Include: 1. Cubicin injection 500 mg q.i.d. q.48 hours. 2. Oxygen by nasal cannula 2 liters per minute. 3. Amiodarone 200 mg p.o. q. 12-hours. 4. Velphoro 500 mg chewable three times a day. 5. Percocet 5/325 q. 6-hour. 6. Rifampin 300 mg p.o. daily. 7. Temazepam 30 mg p.o. at bedtime. 8. Vielka-Jitendra one p.o. daily. 9. Aspirin 325 mg p.o. daily. 10. Colace 100 mg p.o. daily. 11. Sensipar 60 mg daily. 12. Calcitriol 0.5 mcg p.o. daily. REVIEW OF SYSTEMS Review of systems positive for feeling weak, tired, having shortness of breath and cough with some yellow phlegm and leg edema. All other review of systems are negative. PHYSICAL EXAMINATION GENERAL: This is a 71-year-old male laying on the bed, not in acute distress. VITAL SIGNS: Temperature 97.9, heart rate 83, respirations 18, blood pressure 119/57, O2 saturation 97% at 4 liters nasal cannula. HEENT: Normocephalic, atraumatic. EOMI. PERRL. Oral mucosa moist. NECK: Supple. No visible thyromegaly or neck mass. Trachea central. CVS: Regular rate and rhythm. Midsternal wound visible. RESPIRATIONS: Bilateral mild crackles and wheezing, decreased air entry. ABDOMEN: Soft, nontender. Bowel sounds audible. EXTREMITIES: No cyanosis or clubbing. Has pitting edema bilateral lower extremities and +2 pulses. No calf tenderness. BACK: No tenderness. No CVA tenderness. NEUROLOGIC EXAMINATION: Awake, alert, oriented x4. No focal deficits. SKIN: Warm and dry. Scar on the anterior chest status post CABG. PSYCHE: The patient is cooperative. Mood and affect is normal. LABORATORY DATA Include CBC showed WBC count 12.5 high, hemoglobin 10.1 low, hematocrit 30.8 low, RDW 18.6 high, platelet count 493 high, neutrophils is 79.8 high, lymph 6.8 low, mono is 8.3 high. BMP totally unremarkable except for BUN 25 high, creatinine 4.63 high, calcium 11.5 high, total creatine kinase 24 low, troponin-I is 0.03, C-reactive protein 13 high, BNP 473 high, total protein 6.3 low, albumin 2.6 low, lipase 69 low. Third generation TSH is 13.8 high. Blood cultures x2 done and negative so far. VQ scan of the lung done shows low probability for pulmonary embolism. Chest x-ray was done and shows right basilar infiltrate slightly worse in the interim superimposed on mostly chronic-appearing subpleural interstitial lung disease. ASSESSMENT/PLAN 1. This is a 71-year-old male who came to the ER diagnosed with shortness of breath, cough, congestion secondary to right-sided pneumonia. The patient is on Zithromax 500 mg IV daily and Rocephin 1 gram IV daily. I will consult pulmonary for further recommendation. 2. Chronic renal failure. Nephrology consulted. The patient needs dialysis Friday, and Friday. 3. High TSH. I will start 50 mcg of levothyroxine daily. 4. History of insomnia. Continue with temazepam 30 mg p.o. at bedtime. 5. History of constipation. Continue home medication. 6. History of for chronic renal failure. Continue home medication. The patient is on dialysis. 7. Leukocytosis most likely secondary to pneumonia. 8. Anemia secondary to chronic disease including renal failure. 9. Having septic right shoulder joint. I will consult infectious disease for further recommendation of antibiotic. 10. Sepsis on admission. The patient is on antibiotic. 11. DVT prophylaxis. Heparin 5000 units subcutaneous twice a day. 12. GI prophylaxis, Protonix 40 mg p.o. daily. We are going to manage the patient on a daily basis and make recommendation on a daily basis. Raghav Rowe MD EA/JAI /9:30 AM /9:47 AM
--- NOTE | 2017-01-01 10:50 | PD.CONS ---
HPI Service Nephrology Consult Requested By Dr. Fletcher Reason for Consult ESRD Primary Care Physician Andres Alvarenga MD (Paul) History of Present Illness 71 Year old white male with ESRD, HTN, Diabetes, CAD, S/P CABG in November 2016, he has slow recovery, he states, his swelling is better with dialysis, but his shortness of breath did not improve, he was admitted for treatment on Pneumnia, he states he couldn't tolerates Renvela and is on Velphoro. His dialysis is on Friday, and Friday, he had it yesterday. Review of Systems Constitutional: COMPLAINS OF: Fatigue Respiratory: COMPLAINS OF: Shortness of breath Cardiovascular: COMPLAINS OF: Lower Extremity Edema Musculoskeletal: COMPLAINS OF: Joint pain Psychiatric: COMPLAINS OF: Anxiety Past Family Social History Allergies: Coded Allergies: *MDRO Multi-Drug Resistant Organism (Verified Adverse Reaction, Unknown, ) MRSA PCR screen POSITIVE - 03/13/16 MRSA (blood)-10/29/16 Past Medical History ESRD Anemia HPTH CAD S/P CABG DM HTN Hx of Ventricular fibrillation Epidural abscess Discitis Past Surgical History AVF Umbical hernia Tenkhoff catheter placement and removal Rotator cuff repair L wrist surgery Abscess aspiration via needle Reported Medications Reported Meds & Active Scripts Active Cubicin Inj (Daptomycin) 500 Mg Bag 950 Mg IV Q48H Must dilute in appropriate IV Fluid prior to administration Oxygen (O2) Device 2 Liter GIORGIO.CANULA CONTINUOUS PRN Oxygen Concentrator Portable Gaseous 2 L/min via Nasal Canula Continuous For 99 months Amiodarone (Amiodarone HCl) 200 Mg Tab 200 Mg PO Q12HR Ask credit union examiner if refills needed beyond 3 months Velphoro (Sucroferric Oxyhydroxide) 500 Mg Chew 500 Mg CHEW TIDPC Percocet (Oxycodone-Acetaminophen) 5-325 mg Tab 1 Tab PO Q6H PRN Reported Rifampin 300 Mg Cap 300 Mg PO DAILY Temazepam 30 Mg Cap 30 Mg PO HS PRN Vielka-Jitendra (B-Complex W/ C & Folic Acid) 1 Tab 1 Tab PO DAILY Aspirin 325 Mg Tab 325 Mg PO DAILY Colace (Docusate Sodium) 100 Mg Capsule 100 Mg PO DAILY Sensipar (Cinacalcet) 60 Mg Tab 60 Mg PO DAILY@1600 Calcitriol 0.5 Mcg Cap 0.5 Mcg PO DAILY Active Ordered Medications Current Medications Medications (Trade) Dose Ordered Sig/Zenobia Route Start Time Stop Time Status Last Admin (NS Flush) 2 ml UNSCH PRN IV FLUSH 01/01/17 01:30 Sodium Chloride 2 ml 2 ml BID IV FLUSH 01/01/17 09:00 01/01/17 09:35 Ceftriaxone Sodium 1000 mg/ Sodium Chloride 100 ml @ 200 mls/hr Q24H IV 01/02/17 00:00 (Zithromax Inj/ NS 250 ml Inj) 250 ml @ 250 mls/hr Q24H IV 01/02/17 01:00 (Tylenol) 650 mg Q4H PRN PO 01/01/17 01:30 (Zofran Inj) 4 mg Q6H PRN IV 01/01/17 01:30 (Heparin Inj) 5,000 units Q12HR SQ 01/01/17 09:00 01/01/17 10:12 (Synthroid) 50 mcg DAILY@0600 PO 01/01/17 09:45 (Cordarone) 200 mg Q12HR PO 01/01/17 10:30 UNV (Aspirin) 325 mg DAILY PO 01/01/17 10:30 UNV (Rocaltrol) 0.5 mcg DAILY PO 01/01/17 10:30 UNV (Colace) 100 mg DAILY PO 01/01/17 10:30 UNV (Percocet 5-325 Mg) 1 tab Q6H PRN PO 01/01/17 10:30 UNV (Restoril) 30 mg HS PRN PO 01/01/17 10:30 UNV Non-Formulary Medication 1 tab DAILY PO 01/01/17 10:30 UNV Non-Formulary Medication 60 mg DAILY@1600 PO 01/01/17 16:00 UNV Non-Formulary Medication 300 mg DAILY PO 01/01/17 10:30 UNV Non-Formulary Medication 500 mg TIDPC CHEW 01/01/17 13:30 UNV Family History Noncontributory Social History denies smoking/ETOH Physical Exam Vital Signs Vital Signs Date Time Temp Pulse Resp B/P Pulse Ox O2 Delivery O2 Flow Rate FiO2 01/01/17 09:00 93 16 123/59 96 Nasal Cannula 2 01/01/17 06:01 93 Nasal Cannula 3.00 01/01/17 05:20 83 18 119/57 97 Nasal Cannula 4 01/01/17 00:57 87 16 122/58 95 Nasal Cannula 4 12/31/16 22:39 16 95 Nasal Cannula 4 12/31/16 22:39 95 Nasal Cannula 4 12/31/16 22:02 92 18 142/66 95 Nasal Cannula 4 12/31/16 21:56 20 86 12/31/16 19:36 97.9 79 16 103/52 100 Physical Exam GENERAL: Well-nourished, well-developed patient. SKIN: Warm and dry. HEAD: Normocephalic. EYES: No scleral icterus. No injection or drainage. NECK: Supple, trachea midline. No JVD or lymphadenopathy. CARDIOVASCULAR: Regular rate and rhythm with systolic murmur Left chest. RESPIRATORY: Breath sounds diminished at bases GASTROINTESTINAL: Abdomen soft, non-tender, nondistended. EXTREMITIES: No cyanosis, or edema. NEUROLOGICAL: Awake, alert, and oriented x 3. Non-focal. Laboratory Laboratory Tests Test 12/31/16 12/31/16 22:25 22:35 White Blood Count 12.5 Red Blood Count 3.20 Hemoglobin 10.1 Hematocrit 30.8 Mean Corpuscular Volume 96.3 Mean Corpuscular Hemoglobin 31.4 Mean Corpuscular Hemoglobin 32.6 Concent Red Cell Distribution Width 18.6 Platelet Count 493 Mean Platelet Volume 7.3 Neutrophils (%) (Auto) 79.8 Lymphocytes (%) (Auto) 6.8 Monocytes (%) (Auto) 8.3 Eosinophils (%) (Auto) 4.1 Basophils (%) (Auto) 1.0 Neutrophils # (Auto) 10.0 Lymphocytes # (Auto) 0.8 Monocytes # (Auto) 1.0 Eosinophils # (Auto) 0.5 Basophils # (Auto) 0.1 CBC Comment DIFF FINAL Differential Comment Prothrombin Time 11.7 Prothromb Time International 1.1 Ratio Activated Partial 36.9 Thromboplast Time D-Dimer Quantitative (PE/DVT) 1.85 Sodium Level 136 Potassium Level 3.7 Chloride Level 100 Carbon Dioxide Level 29.0 Anion Gap 7 Blood Urea Nitrogen 25 Creatinine 4.63 Estimat Glomerular Filtration 13 Rate Random Glucose 96 Calcium Level 11.5 Magnesium Level 2.3 Total Bilirubin 0.1 Aspartate Amino Transf 21 (AST/SGOT) Alanine Aminotransferase 27 (ALT/SGPT) Alkaline Phosphatase 85 Total Creatine Kinase 24 Troponin I 0.03 C-Reactive Protein 13.00 Total Protein 6.3 Albumin 2.6 Lipase 69 Thyroid Stimulating Hormone 13.800 3rd Gen B-Type Natriuretic Peptide 473 Lactic Acid Level 0.9 Date/Time Procedure Status Source Growth 12/31/16 22:35 Aerobic Blood Culture Received Blood Peripheral Pending 12/31/16 22:35 Anaerobic Blood Culture Received Blood Peripheral Pending Result Diagram: 12/31/16222412/31/165 Imaging Last Impressions Chest X-Ray 12/31/162203 Signed Impressions: Service Date/Time: Saturday, December 31, 2016 22:23 - CONCLUSION: Right base infiltrate slightly worse in the interim, superimposed on mostly chronic appearing subpleural interstitial lung disease. Geovanni Naranjo MD Lung Scan-V Nuclear Medicine 12/31/16 0000 Signed Impressions: Service Date/Time: Saturday, December 31, 2016 23:16 - CONCLUSION: Low probability pulmonary embolism. Nadir Serrano MD Assessment and Plan Problem List: (1) ESRD (end stage renal disease) on dialysis Plan: he has dialysis yesterday keep him on T,T,S Schedule need to check T4 he was on Daptomycin to continue that I added Fosrenol (2) Pneumonia Plan: he is on Daptomycin (3) Hypoxemia Plan: observe on O2 (4) Diabetes Plan: monitor (5) CAD (coronary artery disease) Plan: recent CABG Problem Qualifiers (1) Pneumonia: Qualified Code: J18.1 - Pneumonia of right lower lobe due to infectious organism Araceli Freire MD Jan 01, 2017 10:50
[2017-01-01] MEDS ORDERED: SODIUM CHLOR 0.9% 1000 ML INJ 1,000 ML IV PRN (11:54)
[2017-01-01] MEDS ORDERED: cloNIDine HCL 0.1 MG TAB PO PRN (12:00)
[2017-01-01] MEDS ORDERED: MANNITOL 12.5 GM/50 ML VIAL IV PRN (12:00)
[2017-01-01] MEDS ORDERED: ALBUMIN HUMAN 25% 25 GM/100 ML BAGP IV PRN (12:00)
[2017-01-01] MEDS ORDERED: diphenhydrAMINE HCL 25 MG CAP PO PRN (12:00)
[2017-01-01] MEDS ORDERED: NITROGLYCERIN 0.4 MG SL 25 TABS/BTL SL PRN (12:00)
--- NOTE | 2017-01-01 12:48 | PD.CONS ---
History of Present Illness Service Infectious disease Consult Requested By Dr Fletcher Reason for Consult A patient with history of some sepsis on treatment, possible pneumonia Primary Care Physician Andres Alvarenga MD (Paul) Diagnoses: History of Present Illness Patient seen and examined. Records review. Patient is a 71-year-old male, multiple me from his multiple hospitalizations, presented to the hospital complaining of 2 day history of worsening shortness of breath, and generalized weakness. Patient has been getting IV antibiotics for MRSA thoracic and lumbar spine discitis. He was admitted in November and he had cardiac arrest at that time, and he was found to have significant coronary artery disease. 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 Cultures however were negative intraoperatively. LEONARD at that time showed evidence of moderate aortic stenosis. He was discharged, and he was readmitted December for which shortness of breath. He was treated for pulmonary edema, and he improved and went home on December 24. He has been staying with him at home. He used to do home dialysis, but since his had multiple hospitalizations and requiring IV antibiotics, he has been getting hemodialysis in the dialysis center, every Friday and Saturdays. About 2 days prior to admission, he started having significant weakness, and was getting short of breath. He also admits to some mild cough productive of whitish phlegm. His shortness of breath was severe on the day of admission, and his family convinced him to go to the hospital for further evaluation and treatment. He actually had hemodialysis prior to coming into the emergency room. Patient did not notice any improvement in his breathing after his hemodialysis. He denies any chest pain. Has not had any fever or chills or sweats. He has not had any nausea or vomiting. Patient's appetite has been quite poor. On presentation, patient has not been febrile. His WBC is normal. His chest x- ray has not shown any significant change compared to his chest x-ray from his last admission. He has by basilar infiltrates. BNP is elevated. Infectious disease consultation has been requested to evaluate the patient. Review of Systems Constitutional: COMPLAINS OF: Weight loss, Change in appetite, DENIES: Fever, Chills, Night Sweats Eyes: DENIES: Eye pain Ears, nose, mouth, throat: DENIES: Nasal discharge, Oral lesions, Throat pain, Ear Pain, Running Nose, Sinus Pain Respiratory: COMPLAINS OF: Cough, Sputum production, Shortness of breath, DENIES: Hemoptysis Cardiovascular: COMPLAINS OF: Lower Extremity Edema, DENIES: Chest pain, Palpitations, Syncope Gastrointestinal: DENIES: Abdominal pain, Diarrhea, Nausea, Vomiting, Difficulty Swallowing Musculoskeletal: DENIES: Back pain Integumentary: DENIES: Rash Neurologic: DENIES: Headache Psychiatric: DENIES: Confusion, Hallucinations Past Family Social History Allergies: Coded Allergies: *MDRO Multi-Drug Resistant Organism (Verified Adverse Reaction, Unknown, ) MRSA PCR screen POSITIVE - 03/13/16 MRSA (blood)-10/29/16 Past Medical History Hx MSSA bacteremia treated Hx Strep bacteremia trated Hx discitis lumbar - treated No known history of endocarditis in the past. 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 Son healthy Social History Lives at home No smoking Rare ETOH No illicit drugs Physical Exam Vital Signs Vital Signs Date Time Temp Pulse Resp B/P Pulse Ox O2 Delivery O2 Flow Rate FiO2 01/01/17 09:00 93 16 123/59 96 Nasal Cannula 2 01/01/17 06:01 93 Nasal Cannula 3.00 01/01/17 05:20 83 18 119/57 97 Nasal Cannula 4 01/01/17 00:57 87 16 122/58 95 Nasal Cannula 4 12/31/16 22:39 16 95 Nasal Cannula 4 12/31/16 22:39 95 Nasal Cannula 4 12/31/16 22:02 92 18 142/66 95 Nasal Cannula 4 12/31/16 21:56 20 86 12/31/16 19:36 97.9 79 16 103/52 100 Physical Exam GENERAL: Patient is a thin, well-developed patient, awake and alert, not in respiratory distress. Comfortable at rest SKIN: Warm and dry. No generalized rash, no ecchymoses and no evidence of embolic lesions. HEAD: Atraumatic. Normocephalic. No temporal wasting, or tenderness. EYES: [place] conjunctiva. No petechia or hemorrhage. Pupils equal, round and reactive to light. Extraocular movements full and intact. No scleral icterus. No injection or drainage. EARS, NOSE AND THROAT: Nose without bleeding or purulent nasal discharge. No sinus tenderness. Mucous membranes pink and moist. No oral lesions noted. No exudate. No oral thrush. NECK: Trachea midline. Supple and not tender, no meningeal signs CARDIOVASCULAR: Regular rate and rhythm. Has loud harsh systolic murmur heard over whole L precordium and at base of the heart, no rub. healed sternal incision RESPIRATORY: Breath sounds equal bilaterally. No rales, wheezing or rhonchi. Decreased breath sounds at bases, no E to A changes ABDOMEN: Soft, non-tender, nondistended. Bowel sounds present and normoactive. No guarding. No rebound. No organomegaly. EXTREMITIES: No clubbing, cyanosis, or joint effusion, has good ROM. Has pitting edema both LE, but improving. No calf tenderness. Well perfused and warm. LUE AVF looks ok. PICC ok NEUROLOGICAL: Awake and alert. Cranial nerves grossly intact. Motor grossly within normal limits. PSYCHIATRIC: Normal affect, calm and cooperative. LINE: No evidence of infection Laboratory Laboratory Tests Test 12/31/16 12/31/16 22:25 22:35 White Blood Count 12.5 Red Blood Count 3.20 Hemoglobin 10.1 Hematocrit 30.8 Mean Corpuscular Volume 96.3 Mean Corpuscular Hemoglobin 31.4 Mean Corpuscular Hemoglobin 32.6 Concent Red Cell Distribution Width 18.6 Platelet Count 493 Mean Platelet Volume 7.3 Neutrophils (%) (Auto) 79.8 Lymphocytes (%) (Auto) 6.8 Monocytes (%) (Auto) 8.3 Eosinophils (%) (Auto) 4.1 Basophils (%) (Auto) 1.0 Neutrophils # (Auto) 10.0 Lymphocytes # (Auto) 0.8 Monocytes # (Auto) 1.0 Eosinophils # (Auto) 0.5 Basophils # (Auto) 0.1 CBC Comment DIFF FINAL Differential Comment Prothrombin Time 11.7 Prothromb Time International 1.1 Ratio Activated Partial 36.9 Thromboplast Time D-Dimer Quantitative (PE/DVT) 1.85 Sodium Level 136 Potassium Level 3.7 Chloride Level 100 Carbon Dioxide Level 29.0 Anion Gap 7 Blood Urea Nitrogen 25 Creatinine 4.63 Estimat Glomerular Filtration 13 Rate Random Glucose 96 Calcium Level 11.5 Magnesium Level 2.3 Total Bilirubin 0.1 Aspartate Amino Transf 21 (AST/SGOT) Alanine Aminotransferase 27 (ALT/SGPT) Alkaline Phosphatase 85 Total Creatine Kinase 24 Troponin I 0.03 C-Reactive Protein 13.00 Total Protein 6.3 Albumin 2.6 Lipase 69 Thyroid Stimulating Hormone 13.800 3rd Gen B-Type Natriuretic Peptide 473 Lactic Acid Level 0.9 Date/Time Procedure Status Source Growth 12/31/16 22:35 Aerobic Blood Culture - Preliminary Resulted Blood Peripheral NO GROWTH IN 1 DAY 12/31/16 22:35 Anaerobic Blood Culture - Preliminary Resulted Blood Peripheral NO GROWTH IN 1 DAY Result Diagram: 12/31/16222412/31/165 Imaging RADIOLOGY STUDIES/FILMS REVIEWED Chest X-Ray 12/31/164 Signed Impressions: Service Date/Time: Saturday, December 31, 2016 22:23 - CONCLUSION: Right base infiltrate slightly worse in the interim, superimposed on mostly chronic appearing subpleural interstitial lung disease. Geovanni Naranjo MD Lung Scan- Nuclear Medicine 12/31/16 0000 Signed Impressions: Service Date/Time: Saturday, December 31, 2016 23:16 - CONCLUSION: Low probability pulmonary embolism. Nadir Serrano MD Assessment and Plan Assessment and Plan IMPRESSION SOB, etiology?, CXR no significant change in basilar infiltrates, has imprioved fairly quickly - possibly pulmonary edema, +/- PNA, he has some cough with white phlegm - temps ok, WBC mildly elevated - ? 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
--- NOTE | 2017-01-01 13:37 | MB ---
cc: Hemant HIRSCH M.D. DATE OF CONSULTATION: 01/01/2017 HISTORY OF PRESENT ILLNESS Mr. Conrad is a 71-year-old white male who has had several hospitalizations recently and first presented in November with syncope and some volume syncope and dyspnea. Catheterization revealed triple-vessel coronary disease. He underwent a bypass on November 20. He apparently had a fairly prolonged hospital course including difficulty with fluid because he has been on chronic hemodialysis for eight years but eventually was discharged home. He has been followed as an outpatient. 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 After discharge from the bypass he was seen in follow-up by the home health care nurse. She found that he was having increasing respiratory difficulty as well as increasing fluid so he was brought back to the emergency room. He presented with saturations in the 80s yesterday. Chest x-ray reveals continued interstitial edema, no significant effusions, possible pneumonia. I should mention that he was also admitted on December 20 with similar problems, again discharged home and followed as an outpatient. The patient states he is feeling better today. He was dialyzed yesterday, probably had some fluid removed. Chest x-rays have revealed bilateral lower lobe interstitial changes, no significant accumulation of pleural fluid. The question is whether or not he has underlying pneumonia superimposed on his edema. The patient has had some cough but minimal sputum. No purulent sputum. No hemoptysis. He also a ventilation/perfusion scan in the emergency room today which was low probability for pulmonary embolism. He has no significant prior pulmonary history and has never smoked regularly. PAST MEDICAL HISTORY 1. Congestive heart failure. 2. Diabetes mellitus, insulin dependent. 3. Hypertension. 4. Septic right shoulder joint. 5. Septic disc in his back that has been treated with antibiotics for months. He has been followed carefully by Infectious Disease during these admissions. ALLERGIES None. SOCIAL HISTORY Two daughters with him here are very supportive. He has never smoked. He rarely drinks alcohol. He tries to live independently, although he is somewhat debilitated on chronic hemodialysis. MEDICATIONS Medications are reviewed in the EMR. PHYSICAL EXAMINATION GENERAL: An alert and cooperative elderly gentleman in no distress. VITAL SIGNS: Pulse 90, blood pressure 120/60, respirations 16-18 and his sat on 2 liters is 96%. HEENT: Sclera pale, anicteric. NECK: Neck veins are not distended. LUNGS: He does have basilar rales, right greater than left. No rhonchi. No wheezes. HEART: Regular rhythm. Soft systolic murmur. No audible S3. ABDOMEN: Soft. EXTREMITIES: Some chronic edema in his legs. His daughters insist that this is much better than it has been in the recent past. No cyanosis. LABORATORY Blood cultures are pending. White count 12,000. BUN 25, creatinine 4.6. BNP 473. DISCUSSION Mr. Conrad presents with some respiratory difficulty, shortness of breath and congestion, but I suspect this is predominantly fluid related. However, in light of the recent hospitalizations, immobility and chronic infections he certainly could have some infection at the bases. Will try to collect a sputum. Infectious Disease is managing his antibiotics at this point and I will defer that management to them. He really does not need any other pulmonary intervention at the present time. Further diagnostic and/or therapeutic intervention will depend on his ongoing clinical course. R. MD ZARI Knight/ELIZABETH /1:02 PM /1:19 PM
[2017-01-01] MEDS: CALCITRIOL 0.25 MCG CAP PO SCH (14:15)
[2017-01-01] MEDS: RIFAMPIN 150 MG CAP PO SCH (14:15)
[2017-01-01] MEDS: ASPIRIN 325 MG TAB PO SCH (14:39)
[2017-01-01] MEDS: AMIODARONE 200 MG TAB PO SCH ×2 (14:39→21:00)
[2017-01-01] MEDS: DOCUSATE SODIUM 100 MG CAP PO SCH (14:39)
--- NOTE | 2017-01-01 14:47 | ECHRPT ---
Indication: CONCLUSIONS Normal left ventricular size. Mild concentric left ventricular hypertrophy. The left ventricular systolic function is [id number] reduced with an estimated ejection fra ction in the range of 35-40%. Mitral annular calcification is present. Moderate mitral annular calcification. Mild thickening of the aortic valve leaflets. Mild aortic valve regurgitation. Mild aortic valve stenosis. Aortic valve mean gradient is 22mmHg, Max 40 mmHg There is trace tricuspid valve regurgitation. There is estimated mild pulmonary hypertension present ( 47 mmHg). A large left sided pleural effusion is noted. BP: / HR: Rhythm: Sinus Technical Quality:Good FINDINGS LEFT VENTRICLE The left ventricular systolic function is mildly reduced with an estimated ejection fraction in the range of 45- 50%. Normal left ventricular size. Mild concentric left ventricular hypertrophy. RIGHT VENTRICLE Normal right ventricular size and systolic function. MITRAL VALVE Mitral annular calcification is present. Moderate mitral annular calcification. AORTIC VALVE Moderately calcified valve. Mild aortic valve regurgitation. Nkdy-ep-dasmvksu aortic valve stenosis. Aortic valve mean gradient is 22mmHg, Max 40 mmHg TRICUSPID VALVE There is trace tricuspid valve regurgitation. There is estimated mild pulmonary hypertension present ( 47 mmHg). PULMONARY VALVE No pulmonary valve regurgitation or stenosis. PERICARDIUM A large left sided pleural effusion is noted. Issac Bucio MD (Electronically Signed) Final Date:01 January 2017 14:47
[2017-01-01] MEDS: LANTHANUM CARBONATE 500 MG CHEWABLE TABLET CHEW SCH ×2 (15:13→18:40)
[2017-01-01] MEDS: CEFEPIME INJ 1,000 MG in SODIUM CHLORIDE 0.9% INJ 100 ML IV SCH (15:38)
[2017-01-01] MEDS: SODIUM CHLORIDE 0.9% IV SCH (18:39)
[2017-01-01] MEDS: DAPTOMYCIN IV SCH (18:39)
[2017-01-01] MEDS: VITAMIN B CMPLX/VITC/FOLIC AC CAP PO SCH (18:40)
[2017-01-01] MEDS: LINEZOLID 600 MG TAB PO SCH ×2 (18:41→21:00)
[2017-01-01] MEDS: CINACALCET HYDROCHLORIDE 30 MG TAB PO SCH (18:41)
[2017-01-01] MEDS: TEMAZEPAM 15 MG CAP PO PRN (21:00)
[2017-01-01] MEDS: oxyCODONE/ACETAMINOPHEN 5 MG/325 MG TAB PO PRN (21:00)
[2017-01-02] VITALS (18 sets, daily range): BP systolic 115–175; BP diastolic 65–88; PULSE 67–94; RESP 18–20; TEMP 97.5–98.3; O2SAT 93–98
[2017-01-02] MEDS ORDERED: cefTRIAXone INJ 1,000 MG in SODIUM CHLORIDE 0.9% INJ 100 ML IV SCH ×2
[2017-01-02] MEDS ORDERED: AZITHROMYCIN INJ 500 MG in SODIUM CHLOR 0.9% 250 ML INJ 250 ML IV SCH (01:00)
[2017-01-02] MEDS: LEVOTHYROXINE SODIUM 50 MCG TAB PO SCH (05:11)
[2017-01-02 06:48] LABS: AUTOMATED NEUTROPHIL # 6.9 TH/MM3 (1.8-7.7); BASOPHIL # 0.1 TH/MM3 (0-0.2); BASOPHIL % 1.2 % (0.0-2.0); EOSINOPHIL # 0.6 TH/MM3 (0-0.4); EOSINOPHIL % 6.6 % (0.0-4.0); HEMATOCRIT 28.2 % (39.0-51.0); HEMO FLAGS DIFF FINAL; LYMPH % 8.5 % (9.0-44.0); LYMPHOCYTE # 0.8 TH/MM3 (1.0-4.8); MEAN CELL VOLUME 96.2 FL (80.0-100.0); MEAN CORPUSCULAR HEMOGLOBIN 31.6 PG (27.0-34.0); MEAN CORPUSCULAR HGB CONC 32.9 % (32.0-36.0); MONO % 9.6 % (0.0-8.0); NEUT % 74.1 % (16.0-70.0); PLATELET COUNT 400 TH/MM3 (150-450); RED BLOOD COUNT 2.93 MIL/MM3 (4.50-5.90); RED CELL DISTRIBUTION WIDTH 18.8 % (11.6-17.2); WHITE BLOOD COUNT 9.3 TH/MM3 (4.0-11.0)
[2017-01-02 07:24] LABS: BICARBONATE 28.8 MEQ/L (21.0-32.0); POTASSIUM 4.1 MEQ/L (3.5-5.1); TOTAL BILIRUBIN ADULT 0.2 MG/DL (0.2-1.0)
--- NOTE | 2017-01-02 08:39 | EKG ---
Date Performed: 12/31/2016 Time Performed: 22:04:33 PTAGE: 71 years EKG: Sinus rhythm WITH FIRST DEGREE AV BLOCK MODERATE INTRAVENTRICULAR CONDUCTION DELAY NONSPECIFIC ST & T-WAVE ABNORM ALITY ABNORMAL ECG INTERPRETATION BASED ON A DEFAULT AGE OF 40 YEARS Compared to the PREVIOUS TRACING from 12/20/16, no significant change DOCTOR: Josep Miller Interpretating Date/Time 01/02/2017 08:37:57
[2017-01-02] MEDS: HEPARIN SODIUM - SQ 10,000 UNITS/ML VIAL SQ SCH ×2 (09:00→21:45)
[2017-01-02] MEDS: CALCITRIOL 0.25 MCG CAP PO SCH (09:00)
--- NOTE | 2017-01-02 09:50 | HHI.PR ---
Subjective History of Present Illness Patient getting hemodialysis feel better no acute issue. Review of Systems Constitutional Constitutional: Fatigue, Weakness Pulmonary Respiratory: Coughing, Shortness of Breath Vitals/Results Intake & Output 01/01/17 01/01/17 01/02/17 15:00 23:00 07:00 Intake Total 360 ml Output Total 0 ml Balance 360 ml Intake Oral 360 ml Output Urine Total 0 ml Emesis 0 ml # Bowel Movements 0 Vital Signs Vital Signs Date Time Temp Pulse Resp B/P Pulse Ox O2 Delivery O2 Flow Rate FiO2 01/02/17 06:00 81 01/02/17 05:01 94 01/02/17 05:00 84 01/02/17 04:00 84 01/02/17 03:38 97.6 88 20 115/71 93 01/02/17 03:00 89 01/02/17 02:00 90 01/02/17 01:00 92 01/02/17 00:00 94 01/01/17 23:43 97.6 92 20 125/67 92 01/01/17 23:00 90 01/01/17 22:00 88 01/01/17 22:00 20 01/01/17 21:00 86 01/01/17 20:00 98.2 85 20 152/86 100 01/01/17 20:00 82 01/01/17 19:00 81 01/01/17 19:00 98.2 85 20 152/86 100 01/01/17 16:00 98.7 88 20 141/78 97 01/01/17 14:40 91 16 125/69 100 3 CBC/BMP: 01/02/17 0620 01/02/17 0620 Lab Results Laboratory Tests Test 01/01/17 01/02/17 15:30 06:20 Total Creatine Kinase 26 U/L Thyroxine (T4) 5.1 MCG/DL White Blood Count 9.3 TH/MM3 Red Blood Count 2.93 MIL/MM3 Hemoglobin 9.3 GM/DL Hematocrit 28.2 % Mean Corpuscular Volume 96.2 FL Mean Corpuscular Hemoglobin 31.6 PG Mean Corpuscular Hemoglobin 32.9 % Concent Red Cell Distribution Width 18.8 % Platelet Count 400 TH/MM3 Mean Platelet Volume 6.8 FL Neutrophils (%) (Auto) 74.1 % Lymphocytes (%) (Auto) 8.5 % Monocytes (%) (Auto) 9.6 % Eosinophils (%) (Auto) 6.6 % Basophils (%) (Auto) 1.2 % Neutrophils # (Auto) 6.9 TH/MM3 Lymphocytes # (Auto) 0.8 TH/MM3 Monocytes # (Auto) 0.9 TH/MM3 Eosinophils # (Auto) 0.6 TH/MM3 Basophils # (Auto) 0.1 TH/MM3 CBC Comment DIFF FINAL Differential Comment Sodium Level 139 MEQ/L Potassium Level 4.1 MEQ/L Chloride Level 100 MEQ/L Carbon Dioxide Level 28.8 MEQ/L Anion Gap 10 MEQ/L Blood Urea Nitrogen 36 MG/DL Creatinine 6.92 MG/DL Estimat Glomerular Filtration 8 ML/MIN Rate Random Glucose 116 MG/DL Calcium Level 12.3 MG/DL Protein Corrected Calcium MG/DL Total Bilirubin 0.2 MG/DL Aspartate Amino Transf 20 U/L (AST/SGOT) Alanine Aminotransferase 25 U/L (ALT/SGPT) Alkaline Phosphatase 73 U/L Total Protein 5.7 GM/DL Albumin 2.2 GM/DL Physical Exam General General Appearance: No Acute Distress, Comfortable Eyes Eye Exam: Sclera White, Extraocular Movement Intact Throat Throat Exam: Oral Mucosa [place] & Moist, Oral Pharynx Normal Neck Neck Exam: Neck Supple, Trachea Midline Pulmonary Resp Exam: Clear Bilaterally, Breath Sounds Equal Cardiology CV Exam: Regular, Normal Sinus Rhythm Gastrointestinal/Abdomen GI Exam: Soft, Non-Tender, Bowel Sounds Present Musculoskeletal MS Exam: Joints Intact Integumentary Skin Exam: Warm, Dry Extremeties Extremities Exam: Pitting Edema Neurologic Neuro Exam: Alert, Awake, Oriented, No Focal Deficits Psychiatric Psych Exam: Appropriate Responses VTE Prophylaxis VTE Prophylaxis Meds: Heparin PUD Prophylasis PUD Prophylaxis: Protonix Assessment/Plan Assessment/Plan ASSESSMENT/PLAN 1. This is a 71-year-old male who came to the ER diagnosed with shortness of breath, cough, congestion secondary to right-sided pneumonia. The patient is on Daptomycin, Cefepime, Zithromax. pulmonary input noted for further recommendation. 2. Chronic renal failure. Nephrology input noted. The patient needs dialysis Friday, and Friday. 3. High TSH. on 50 mcg of levothyroxine daily. 4. History of insomnia. Continue with temazepam 30 mg p.o. at bedtime. 5. History of constipation. Continue home medication. 6. History of for chronic renal failure. Continue home medication. The patient is on hemodialysis. 7. Leukocytosis most likely secondary to pneumonia...better. 8. Anemia secondary to chronic disease including renal failure. 9. Having septic right shoulder joint. infectious disease input noted for further recommendation of antibiotic. 10. Sepsis on admission. The patient is on antibiotic. 11. DVT prophylaxis. Heparin 5000 units subcutaneous twice a day. 12. GI prophylaxis, Protonix 40 mg p.o. daily. We are going to manage the patient on a daily basis and make recommendation on a daily basis. Discussed Condition with: Patient Jonn Fletcher MD Jan 02, 2017 09:50
--- NOTE | 2017-01-02 10:16 | HHI.NPPN ---
Subjective History of Present Illness 71 year old with ESRD increased dyspnea Review of Systems Respiratory Lungs: SOB Objective Data Data 01/01/17 01/02/17 19:00 07:00 Intake Total 360 ml Output Total 0 ml Balance 360 ml Intake Oral 360 ml Output Urine Total 0 ml Emesis 0 ml # Bowel Movements 0 Vital Signs Date Time Temp Pulse Resp B/P Pulse Ox O2 Delivery O2 Flow Rate FiO2 01/02/17 06:00 81 01/02/17 05:01 94 01/02/17 05:00 84 01/02/17 04:00 84 01/02/17 03:38 97.6 88 20 115/71 93 01/02/17 03:00 89 01/02/17 02:00 90 01/02/17 01:00 92 01/02/17 00:00 94 01/01/17 23:43 97.6 92 20 125/67 92 01/01/17 23:00 90 01/01/17 22:00 88 01/01/17 22:00 20 01/01/17 21:00 86 01/01/17 20:00 98.2 85 20 152/86 100 01/01/17 20:00 82 01/01/17 19:00 81 01/01/17 19:00 98.2 85 20 152/86 100 01/01/17 16:00 98.7 88 20 141/78 97 01/01/17 14:40 91 16 125/69 100 3 -: 01/02/17 0620 01/02/17 0620 Physical Exam General Appearance: Well Developed, Well Nourished Neck Neck Exam: Neck Supple Pulmonary Resp Exam: Decreased Bases Cardiology CV Exam: Regular, Normal Sinus Rhythm, Murmur Gastrointestinal/Abdomen GI Exam: Soft, Non-Tender, Bowel Sounds Present Extremeties Extremities Exam: Trace Edema Neurologic Neuro Exam: Alert, Awake Assessment/Plan Problem List: (1) ESRD (end stage renal disease) on dialysis Plan: he is seen during Hemodialysis 3 K bath UF 2.5 L tolerating it well on Daptomycin/cefepime/Zithromax WBC decreased T4 normal High calcium will need to follow possible immobilization induced.check vit d PTH Give Pamidronate Echo 45% EF moderate , Large Left pleural effusion this will need Thoracentesis unlikely dialysis will able to be of any benefit to regress this US Chest for marking ordered (2) Pneumonia Plan: he is on Daptomycin, Cefepime, Zithromax (3) Hypoxemia Plan: observe on O2 (4) Diabetes Plan: monitor (5) CAD (coronary artery disease) Plan: recent CABG Problem Qualifiers (1) Pneumonia: Qualified Code: J18.1 - Pneumonia of right lower lobe due to infectious organism Araceli Freire MD Jan 02, 2017 10:16
[2017-01-02] MEDS: LANTHANUM CARBONATE 500 MG CHEWABLE TABLET CHEW SCH ×3 (11:45→16:28)
[2017-01-02] MEDS: AMIODARONE 200 MG TAB PO SCH ×2 (11:45→21:44)
[2017-01-02] MEDS: DOCUSATE SODIUM 100 MG CAP PO SCH (11:45)
[2017-01-02] MEDS: ASPIRIN 325 MG TAB PO SCH (11:45)
[2017-01-02] MEDS: LINEZOLID 600 MG TAB PO SCH ×2 (11:46→21:45)
[2017-01-02] MEDS: AZITHROMYCIN 250 MG TAB PO SCH (11:46)
[2017-01-02] MEDS: SODIUM CHLORIDE 0.9% FLUSH 10 ML FLUSH IV FLUSH SCH ×2 (11:47→21:44)
[2017-01-02] MEDS: RIFAMPIN 150 MG CAP PO SCH (11:47)
[2017-01-02] MEDS: VITAMIN B CMPLX/VITC/FOLIC AC CAP PO SCH (11:47)
[2017-01-02] MEDS ORDERED: PAMIDRONATE INJ 60 MG in SODIUM CHLORID 0.9% 500 ML INJ 500 ML IV ONE (12:00)
--- NOTE | 2017-01-02 12:25 | RADRPT ---
EXAM DATE/TIME: 01/02/2017 11:46 [facility] COMPARISON: US VENOUS MAPPING,LOW EXT,BILAT, November 17, 2016, 15:27. EXTERNAL COMPARISON : [facility], CT THORAX, W/O CONTRAST, April 07, 2012, January 29, 2011. INDICATIONS : Left pleural effusion. MEDICAL HISTORY : Myocardial infarction. Congestive heart failure. Hypercholesterolemia. V-tach. HTN. Dyspnea. Umbilica l hernia. Renal failure. Arthritis. Diabetes. Anemia. MRSA. Anticoagulant therapy, Aspirin 325mg. SURGICAL HISTORY : CABG. Umbilical hernia repair. Left arm dialysis fistula. ORIF left wrist. Rotator cuff repair. Blo od transfusions. ENCOUNTER: Initial ACUITY: 3 days PAIN SCORE: 0/10 LOCATION: Left chest MEASUREMENTS: SKIN TO PARIETAL PLEURA: 1.9 cm SKIN TO MAX SAFE DEPTH: 7.5 cm ESTIMATED FLUID VOLUME: 1871 cc FLUID COMPOSITION: simple FINDINGS: Pleural effusion as above. A guero was placed on the skin surface superficial to the pleural fluid col lection. CONCLUSION: 1. Left pleural effusion as above. Alexys Nicolas MD on January 02, 2017 at 12:24 Board Certified Radiologist. This report was verified electronically.
[2017-01-02] MEDS: CINACALCET HYDROCHLORIDE 30 MG TAB PO SCH (16:28)
[2017-01-02] MEDS: CEFEPIME INJ 1,000 MG in SODIUM CHLORIDE 0.9% INJ 100 ML IV SCH (16:29)
--- NOTE | 2017-01-02 16:30 | RADRPT ---
EXAM DATE/TIME: 01/02/2017 16:09 [facility] COMPARISON: CHEST PA & LAT, January 29, 2012, 11:49. INDICATIONS : Pleural effusion left side. MEDICAL HISTORY : Myocardial infarction. Congestive heart failure. Hypercholesterolemia. V-tach. HTN. Dyspnea. Umbilica l hernia. Renal failure. Arthritis. Diabetes. Anemia. MRSA. Anticoagulant therapy. Aspirin 325mg. SURGICAL HISTORY : CABG. Umbilical hernia repair. Left arm dialysis fistula. ORIF left wrist. Rotator cuff repair. Blood transfusions ENCOUNTER: Subsequent ACUITY: 2 days PAIN SCORE: 0/10 LOCATION: Left chest FINDINGS: Median sternotomy wires are noted status post cardiac surgery. Bilateral pulmonary infiltrates ate n oted consistent with pneumonia and/or pulmonary edema. Clinical correlation is recommended. A small right pleural effusion is noted. A right-sided PICC line has its tip in the superior vena cava. CONCLUSION: 1. Bilateral pulmonary infiltrates consistent with pneumonia and/or pulmonary edema. Clinical correla tion is recommended. 2. Small right pleural effusion. Humberto Barrera MD on January 02, 2017 at 16:25 Board Certified Radiologist. This report was verified electronically.
[2017-01-02] MEDS: EPOETIN ALFA 10,000 UNITS/ML VIAL IV PRN (17:20)
[2017-01-02] MEDS: GELATIN 12 MM/7 MM FOAM TOP PRN (17:20)
[2017-01-02] MEDS: SUCROFERRIC OXYHYDROXIDE 500 MG PO SCH (18:30)
[2017-01-02] MEDS: TEMAZEPAM 15 MG CAP PO PRN (21:45)
[2017-01-03] VITALS (23 sets, daily range): BP systolic 96–155; BP diastolic 52–78; PULSE 72–92; RESP 18–20; TEMP 97.2–98.5; O2SAT 92–98
[2017-01-03] MEDS: LEVOTHYROXINE SODIUM 50 MCG TAB PO SCH (06:00)
[2017-01-03 08:00] LABS: AUTOMATED NEUTROPHIL # 6.7 TH/MM3 (1.8-7.7); BASOPHIL # 0.1 TH/MM3 (0-0.2); BASOPHIL % 1.4 % (0.0-2.0); EOSINOPHIL # 0.6 TH/MM3 (0-0.4); EOSINOPHIL % 6.7 % (0.0-4.0); HEMATOCRIT 31.8 % (39.0-51.0); HEMO FLAGS DIFF FINAL; LYMPH % 10.3 % (9.0-44.0); LYMPHOCYTE # 0.9 TH/MM3 (1.0-4.8); MEAN CELL VOLUME 98.8 FL (80.0-100.0); MEAN CORPUSCULAR HGB CONC 32.4 % (32.0-36.0); MONO % 9.1 % (0.0-8.0); NEUT % 72.5 % (16.0-70.0); PLATELET COUNT 401 TH/MM3 (150-450); RED BLOOD COUNT 3.22 MIL/MM3 (4.50-5.90); RED CELL DISTRIBUTION WIDTH 18.9 % (11.6-17.2); WHITE BLOOD COUNT 9.2 TH/MM3 (4.0-11.0)
[2017-01-03 08:11] LABS: TOTAL BILIRUBIN ADULT 0.3 MG/DL (0.2-1.0)
[2017-01-03] MEDS: SODIUM CHLORIDE 0.9% IV SCH (09:00)
[2017-01-03] MEDS: DAPTOMYCIN IV SCH (09:00)
[2017-01-03] MEDS: SUCROFERRIC OXYHYDROXIDE 500 MG PO SCH ×3 (09:30→18:30)
[2017-01-03] MEDS: RIFAMPIN 150 MG CAP PO SCH (09:49)
[2017-01-03] MEDS: SODIUM CHLORIDE 0.9% FLUSH 10 ML FLUSH IV FLUSH SCH ×2 (09:49→20:55)
[2017-01-03] MEDS: AZITHROMYCIN 250 MG TAB PO SCH (09:49)
[2017-01-03] MEDS: LANTHANUM CARBONATE 500 MG CHEWABLE TABLET CHEW SCH ×3 (09:49→18:36)
[2017-01-03] MEDS: VITAMIN B CMPLX/VITC/FOLIC AC CAP PO SCH (09:49)
[2017-01-03] MEDS: AMIODARONE 200 MG TAB PO SCH ×2 (09:49→20:55)
[2017-01-03] MEDS: LINEZOLID 600 MG TAB PO SCH ×2 (09:49→20:55)
[2017-01-03] MEDS: CALCITRIOL 0.25 MCG CAP PO SCH (09:50)
[2017-01-03] MEDS: ASPIRIN 325 MG TAB PO SCH (09:50)
[2017-01-03] MEDS: DOCUSATE SODIUM 100 MG CAP PO SCH (09:50)
[2017-01-03] MEDS: HEPARIN SODIUM - SQ 10,000 UNITS/ML VIAL SQ SCH (09:50)
--- NOTE | 2017-01-03 09:50 | HHI.PR ---
Subjective History of Present Illness Patient feel better no acute issue. Review of Systems Constitutional Constitutional: Fatigue, Weakness Pulmonary Respiratory: Coughing, Shortness of Breath Vitals/Results Intake & Output 01/02/17 01/02/17 01/03/17 15:00 23:00 07:00 Intake Total 240 ml Output Total 2500 ml 0 ml Balance -2500 ml 240 ml Intake Oral 240 ml Output Urine Total 0 ml Hemodialysis 2500 ml # Bowel Movements 0 Vital Signs Vital Signs Date Time Temp Pulse Resp B/P Pulse Ox O2 Delivery O2 Flow Rate FiO2 01/03/17 07:00 83 01/03/17 06:00 86 01/03/17 05:00 85 01/03/17 04:00 82 01/03/17 03:30 98.3 87 20 107/64 94 01/03/17 03:00 88 01/03/17 02:00 86 01/03/17 01:00 92 01/03/17 00:00 98.5 83 18 104/52 95 01/03/17 00:00 86 01/02/17 23:00 84 01/02/17 22:00 86 01/02/17 21:00 80 01/02/17 20:00 84 01/02/17 20:00 98.3 84 18 136/65 95 01/02/17 19:28 95 01/02/17 19:00 84 01/02/17 16:00 97.8 68 20 175/88 95 01/02/17 12:00 97.8 67 20 150/88 98 CBC/BMP: 01/03/17 0640 01/03/17 0640 Lab Results Laboratory Tests Test 01/03/17 06:40 White Blood Count 9.2 TH/MM3 Red Blood Count 3.22 MIL/MM3 Hemoglobin 10.3 GM/DL Hematocrit 31.8 % Mean Corpuscular Volume 98.8 FL Mean Corpuscular Hemoglobin 32.0 PG Mean Corpuscular Hemoglobin 32.4 % Concent Red Cell Distribution Width 18.9 % Platelet Count 401 TH/MM3 Mean Platelet Volume 7.2 FL Neutrophils (%) (Auto) 72.5 % Lymphocytes (%) (Auto) 10.3 % Monocytes (%) (Auto) 9.1 % Eosinophils (%) (Auto) 6.7 % Basophils (%) (Auto) 1.4 % Neutrophils # (Auto) 6.7 TH/MM3 Lymphocytes # (Auto) 0.9 TH/MM3 Monocytes # (Auto) 0.8 TH/MM3 Eosinophils # (Auto) 0.6 TH/MM3 Basophils # (Auto) 0.1 TH/MM3 CBC Comment DIFF FINAL Differential Comment Sodium Level 138 MEQ/L Potassium Level 4.0 MEQ/L Chloride Level 99 MEQ/L Carbon Dioxide Level 32.0 MEQ/L Anion Gap 7 MEQ/L Blood Urea Nitrogen 25 MG/DL Creatinine 5.72 MG/DL Estimat Glomerular Filtration 10 ML/MIN Rate Random Glucose 83 MG/DL Calcium Level 11.6 MG/DL Protein Corrected Calcium MG/DL Total Bilirubin 0.3 MG/DL Aspartate Amino Transf 15 U/L (AST/SGOT) Alanine Aminotransferase 24 U/L (ALT/SGPT) Alkaline Phosphatase 71 U/L Total Protein 6.1 GM/DL Albumin 2.4 GM/DL 25-Hydroxy Vitamin D Total 27.0 ng/ML Parathyroid Hormone (Intact) 48.2 PG/ML Physical Exam General General Appearance: No Acute Distress, Comfortable Eyes Eye Exam: Sclera White, Extraocular Movement Intact Throat Throat Exam: Oral Mucosa [place] & Moist, Oral Pharynx Normal Neck Neck Exam: Neck Supple, Trachea Midline Pulmonary Resp Exam: Clear Bilaterally, Breath Sounds Equal Cardiology CV Exam: Regular, Normal Sinus Rhythm Gastrointestinal/Abdomen GI Exam: Soft, Non-Tender, Bowel Sounds Present Musculoskeletal MS Exam: Joints Intact Integumentary Skin Exam: Warm, Dry Extremeties Extremities Exam: Pitting Edema Neurologic Neuro Exam: Alert, Awake, Oriented, No Focal Deficits Psychiatric Psych Exam: Appropriate Responses VTE Prophylaxis VTE Prophylaxis Meds: Heparin PUD Prophylasis PUD Prophylaxis: Protonix Assessment/Plan Assessment/Plan ASSESSMENT/PLAN 1. This is a 71-year-old male who came to the ER diagnosed with shortness of breath, cough, congestion secondary to right-sided pneumonia. The patient is on Daptomycin, Cefepime, Zithromax. pulmonary input noted for further recommendation. 2. Chronic renal failure. Nephrology input noted. The patient needs dialysis Friday, and Friday. 3. High TSH. on 50 mcg of levothyroxine daily. 4. History of insomnia. Continue with temazepam 30 mg p.o. at bedtime. 5. History of constipation. Continue home medication. 6. History of for chronic renal failure. Continue home medication. The patient is on hemodialysis. 7. Leukocytosis most likely secondary to pneumonia...better. 8. Anemia secondary to chronic disease including renal failure. 9. Having septic right shoulder joint. infectious disease input noted for further recommendation of antibiotic. 10. Sepsis on admission. The patient is on antibiotic. 11. DVT prophylaxis. Heparin 5000 units subcutaneous twice a day. 12. GI prophylaxis, Protonix 40 mg p.o. daily. Check CBC with diff CMP in AM. We are going to manage the patient on a daily basis and make recommendation on a daily basis. Discussed Condition with: Patient Jonn Fletcher MD Jan 03, 2017 09:50
[2017-01-03] MEDS ORDERED: CHOLECALCIFEROL (VIT D3) 5000 UNIT CAP PO ONE (11:30)
--- NOTE | 2017-01-03 11:35 | HHI.NPPN ---
Subjective History of Present Illness 71 year old with ESRD increased dyspnea Review of Systems Respiratory Lungs: SOB Objective Data Data 01/02/17 01/03/17 19:00 07:00 Intake Total 240 ml Output Total 2500 ml 0 ml Balance -2500 ml 240 ml Intake Oral 240 ml Output Urine Total 0 ml Hemodialysis 2500 ml # Bowel Movements 0 Vital Signs Date Time Temp Pulse Resp B/P Pulse Ox O2 Delivery O2 Flow Rate FiO2 01/03/17 07:00 83 01/03/17 06:00 86 01/03/17 05:00 85 01/03/17 04:00 82 01/03/17 03:30 98.3 87 20 107/64 94 01/03/17 03:00 88 01/03/17 02:00 86 01/03/17 01:00 92 01/03/17 00:00 98.5 83 18 104/52 95 01/03/17 00:00 86 01/02/17 23:00 84 01/02/17 22:00 86 01/02/17 21:00 80 01/02/17 20:00 84 01/02/17 20:00 98.3 84 18 136/65 95 01/02/17 19:28 95 01/02/17 19:00 84 01/02/17 16:00 97.8 68 20 175/88 95 01/02/17 12:00 97.8 67 20 150/88 98 -: 01/03/17 0640 01/03/17 0640 Physical Exam General Appearance: No Acute Distress, Comfortable Eyes Eye Exam: Sclera White, Extraocular Movement Intact Throat Throat Exam: Oral Mucosa [place] & Moist, Oral Pharynx Normal Neck Neck Exam: Neck Supple, Trachea Midline Pulmonary Resp Exam: Decreased Bases Cardiology CV Exam: Regular, Normal Sinus Rhythm Gastrointestinal/Abdomen GI Exam: Soft, Non-Tender, Bowel Sounds Present Musculoskeletal MS Exam: Joints Intact Integumentary Skin Exam: Warm, Dry Extremeties Extremities Exam: Pitting Edema Neurologic Neuro Exam: Alert, Awake, Oriented, No Focal Deficits Psychiatric Psych Exam: Appropriate Responses PUD Prophylasis PUD Prophylaxis: Protonix Assessment/Plan Problem List: (1) ESRD (end stage renal disease) on dialysis Plan: Large L Pleural effusion 1.8 L seen with US Consult CV surgery as has CABG possibly need CT or Thoracentesis on Daptomycin/cefepime/Zithromax WBC decreased T4 normal High calcium better post Pamidronate Echo 45% EF moderate , Large Left pleural effusion await CV and Pulmonary Follow up ad Vitamin D 3 supplements (2) Pneumonia Plan: he is on Daptomycin, Cefepime, Zithromax (3) Hypoxemia Plan: observe on O2 (4) Diabetes Plan: monitor (5) CAD (coronary artery disease) Plan: recent CABG Problem Qualifiers (1) Pneumonia: Qualified Code: J18.1 - Pneumonia of right lower lobe due to infectious organism Araceli Freire MD Jan 03, 2017 11:35
--- NOTE | 2017-01-03 13:37 | PD.CAR.PN ---
CVT Progress Note Subjective/Hospital Course: Patient is s/p CABG with h/o ESRD on dialysis. Readmitted with SOB. He has no complaints currently Objective: Vital Signs Date Time Temp Pulse Resp B/P Pulse Ox O2 Delivery O2 Flow Rate FiO2 01/03/17 13:00 84 01/03/17 12:37 82 01/03/17 12:13 93 Nasal Cannula 3.00 01/03/17 11:00 97.4 87 18 96/57 92 01/03/17 11:00 84 01/03/17 11:00 84 01/03/17 07:00 83 01/03/17 06:00 86 01/03/17 05:00 85 01/03/17 04:00 82 01/03/17 03:30 98.3 87 20 107/64 94 01/03/17 03:00 88 01/03/17 02:00 86 01/03/17 01:00 92 01/03/17 00:00 98.5 83 18 104/52 95 01/03/17 00:00 86 01/02/17 23:00 84 01/02/17 22:00 86 01/02/17 21:00 80 01/02/17 20:00 84 01/02/17 20:00 98.3 84 18 136/65 95 01/02/17 19:28 95 01/02/17 19:00 84 01/02/17 16:00 97.8 68 20 175/88 95 Labs: Laboratory Tests Test 01/03/17 06:40 White Blood Count 9.2 TH/MM3 (4.0-11.0) Red Blood Count 3.22 MIL/MM3 (4.50-5.90) Hemoglobin 10.3 GM/DL (13.0-17.0) Hematocrit 31.8 % (39.0-51.0) Mean Corpuscular Volume 98.8 FL (80.0-100.0) Mean Corpuscular Hemoglobin 32.0 PG (27.0-34.0) Mean Corpuscular Hemoglobin 32.4 % Concent (32.0-36.0) Red Cell Distribution Width 18.9 % (11.6-17.2) Platelet Count 401 TH/MM3 (150-450) Mean Platelet Volume 7.2 FL (7.0-11.0) Neutrophils (%) (Auto) 72.5 % (16.0-70.0) Lymphocytes (%) (Auto) 10.3 % (9.0-44.0) Monocytes (%) (Auto) 9.1 % (0.0-8.0) Eosinophils (%) (Auto) 6.7 % (0.0-4.0) Basophils (%) (Auto) 1.4 % (0.0-2.0) Neutrophils # (Auto) 6.7 TH/MM3 (1.8-7.7) Lymphocytes # (Auto) 0.9 TH/MM3 (1.0-4.8) Monocytes # (Auto) 0.8 TH/MM3 (0-0.9) Eosinophils # (Auto) 0.6 TH/MM3 (0-0.4) Basophils # (Auto) 0.1 TH/MM3 (0-0.2) CBC Comment DIFF FINAL Differential Comment Sodium Level 138 MEQ/L (136-145) Potassium Level 4.0 MEQ/L (3.5-5.1) Chloride Level 99 MEQ/L (98-107) Carbon Dioxide Level 32.0 MEQ/L (21.0-32.0) Anion Gap 7 MEQ/L (5-15) Blood Urea Nitrogen 25 MG/DL (7-18) Creatinine 5.72 MG/DL (0.60-1.30) Estimat Glomerular Filtration 10 ML/MIN (>89) Rate Random Glucose 83 MG/DL (74-106) Calcium Level 11.6 MG/DL (8.5-10.1) Protein Corrected Calcium MG/DL (8.5-10.1) Total Bilirubin 0.3 MG/DL (0.2-1.0) Aspartate Amino Transf 15 U/L (15-37) (AST/SGOT) Alanine Aminotransferase 24 U/L (12-78) (ALT/SGPT) Alkaline Phosphatase 71 U/L (45-117) Total Protein 6.1 GM/DL (6.4-8.2) Albumin 2.4 GM/DL (3.4-5.0) 25-Hydroxy Vitamin D Total 27.0 ng/ML (30-100) Parathyroid Hormone (Intact) 48.2 PG/ML (12.4-76.8) Result Diagram: 01/03/1740 01/03/17 0640 Imaging: Last Impressions Chest X-Ray 01/02/17 0000 Signed Impressions: Service Date/Time: December 16:09 - CONCLUSION: 1. Bilateral pulmonary infiltrates consistent with pneumonia and/or pulmonary edema. Clinical correlation is recommended. 2. Small right pleural effusion. Humberto Barrera MD Chest Ultrasound 01/02/17 0000 Signed Impressions: Service Date/Time: December 11:46 - CONCLUSION: 1. Left pleural effusion as above. Alexys Nicolas MD Lung Scan-V Nuclear Medicine 12/31/16 0000 Signed Impressions: Service Date/Time: Saturday, December 31, 2016 23:16 - CONCLUSION: Low probability pulmonary embolism. Nadir Serrano MD Cardiovascular: RRR Telemetry: NSR Pulmonary: CTA Incision: dry and intact Plan: Patient has unimpressive CXR, but a significant left pleural effusion on U/S. I discussed with Dr. Horace Nicolas and he agreed to perform an U/S guided thoracentesis. Once this is done, patient should be ready for discharge. Mariel Pretty MD Jan 03, 2017 13:37
--- NOTE | 2017-01-03 14:03 | HHI.IDPN ---
Subjective Subjective Remarks Readmission for recurrent SOB. No fever. Mild cough. Breathing has improved fairly rapidly. Had HD yesterday. Chest US done for large L pleural effusion. Repeat echo still shows same mod . BC negative Notes reviewed Temps CV[facility] notes reviewed No new complaint SOB better Antibiotics Cubicin Zyvox Cefepime Lines PICC Past Medical History Hx MSSA bacteremia treated Hx Strep bacteremia trated Hx discitis lumbar - treated No known history of endocarditis in the past. 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 Vital Signs Date Time Temp Pulse Resp B/P Pulse Ox O2 Delivery O2 Flow Rate FiO2 01/03/17 13:00 84 01/03/17 12:37 82 01/03/17 12:13 93 Nasal Cannula 3.00 01/03/17 11:00 97.4 87 18 96/57 92 01/03/17 11:00 84 01/03/17 11:00 84 01/03/17 07:00 83 01/03/17 06:00 86 01/03/17 05:00 85 01/03/17 04:00 82 01/03/17 03:30 98.3 87 20 107/64 94 01/03/17 03:00 88 01/03/17 02:00 86 01/03/17 01:00 92 01/03/17 00:00 98.5 83 18 104/52 95 01/03/17 00:00 86 01/02/17 23:00 84 01/02/17 22:00 86 01/02/17 21:00 80 01/02/17 20:00 84 01/02/17 20:00 98.3 84 18 136/65 95 01/02/17 19:28 95 01/02/17 19:00 84 01/02/17 16:00 97.8 68 20 175/88 95 01/02/17 01/02/17 01/03/17 14:59 22:59 06:59 Intake Total 240 ml Output Total 2500 ml 0 ml Balance -2500 ml 240 ml Intake Oral 240 ml Output Urine Total 0 ml Hemodialysis 2500 ml # Bowel Movements 0 . Laboratory Tests Test 01/02/17 01/03/17 06:20 06:40 White Blood Count 9.3 TH/MM3 9.2 TH/MM3 Red Blood Count 2.93 MIL/MM3 3.22 MIL/MM3 Hemoglobin 9.3 GM/DL 10.3 GM/DL Hematocrit 28.2 % 31.8 % Mean Corpuscular Volume 96.2 FL 98.8 FL Mean Corpuscular Hemoglobin 31.6 PG 32.0 PG Mean Corpuscular Hemoglobin 32.9 % 32.4 % Concent Red Cell Distribution Width 18.8 % 18.9 % Platelet Count 400 TH/MM3 401 TH/MM3 Mean Platelet Volume 6.8 FL 7.2 FL Neutrophils (%) (Auto) 74.1 % 72.5 % Lymphocytes (%) (Auto) 8.5 % 10.3 % Monocytes (%) (Auto) 9.6 % 9.1 % Eosinophils (%) (Auto) 6.6 % 6.7 % Basophils (%) (Auto) 1.2 % 1.4 % Neutrophils # (Auto) 6.9 TH/MM3 6.7 TH/MM3 Lymphocytes # (Auto) 0.8 TH/MM3 0.9 TH/MM3 Monocytes # (Auto) 0.9 TH/MM3 0.8 TH/MM3 Eosinophils # (Auto) 0.6 TH/MM3 0.6 TH/MM3 Basophils # (Auto) 0.1 TH/MM3 0.1 TH/MM3 CBC Comment DIFF FINAL DIFF FINAL Differential Comment Laboratory Tests Test 01/01/17 01/02/17 01/03/17 15:30 06:20 06:40 Total Creatine Kinase 26 U/L Thyroxine (T4) 5.1 MCG/DL Sodium Level 139 MEQ/L 138 MEQ/L Potassium Level 4.1 MEQ/L 4.0 MEQ/L Chloride Level 100 MEQ/L 99 MEQ/L Carbon Dioxide Level 28.8 MEQ/L 32.0 MEQ/L Anion Gap 10 MEQ/L 7 MEQ/L Blood Urea Nitrogen 36 MG/DL 25 MG/DL Creatinine 6.92 MG/DL 5.72 MG/DL Estimat Glomerular Filtration 8 ML/MIN 10 ML/MIN Rate Random Glucose 116 MG/DL 83 MG/DL Calcium Level 12.3 MG/DL 11.6 MG/DL Protein Corrected Calcium MG/DL MG/DL Total Bilirubin 0.2 MG/DL 0.3 MG/DL Aspartate Amino Transf 20 U/L 15 U/L (AST/SGOT) Alanine Aminotransferase 25 U/L 24 U/L (ALT/SGPT) Alkaline Phosphatase 73 U/L 71 U/L Total Protein 5.7 GM/DL 6.1 GM/DL Albumin 2.2 GM/DL 2.4 GM/DL 25-Hydroxy Vitamin D Total 27.0 ng/ML Parathyroid Hormone (Intact) 48.2 PG/ML Microbiology Date/Time Procedure Status Source Growth 12/31/16 22:25 Aerobic Blood Culture - Preliminary Resulted Blood Peripheral NO GROWTH IN 3 DAYS 12/31/16 22:25 Anaerobic Blood Culture - Preliminary Resulted Blood Peripheral NO GROWTH IN 3 DAYS 12/31/16 22:35 Aerobic Blood Culture - Preliminary Resulted Blood Peripheral NO GROWTH IN 3 DAYS 12/31/16 22:35 Anaerobic Blood Culture - Preliminary Resulted Blood Peripheral NO GROWTH IN 3 DAYS Imaging Last Impressions Chest X-Ray 01/02/17 0000 Signed Impressions: Service Date/Time: December 16:09 - CONCLUSION: 1. Bilateral pulmonary infiltrates consistent with pneumonia and/or pulmonary edema. Clinical correlation is recommended. 2. Small right pleural effusion. Humberto Barrera MD Chest Ultrasound 01/02/17 0000 Signed Impressions: Service Date/Time: December 11:46 - CONCLUSION: 1. Left pleural effusion as above. Alexys Nicolas MD Lung Scan- Nuclear Medicine 12/31/16 0000 Signed Impressions: Service Date/Time: Saturday, December 31, 2016 23:16 - CONCLUSION: Low probability pulmonary embolism. Nadir Serrano MD Physical Exam GENERAL: awake and alert, not in respiratory distress. Comfortable at rest SKIN: Warm and dry. No generalized rash, no ecchymoses and no evidence of embolic lesions. HEAD: Atraumatic. Normocephalic. No temporal wasting, or tenderness. EYES: [place] conjunctiva. No petechia or hemorrhage. No scleral icterus. No injection or drainage. EARS, NOSE AND THROAT: Nose without bleeding or purulent nasal discharge. No sinus tenderness. Mucous membranes pink and moist. No oral lesions noted. NECK: Trachea midline. Supple and not tender, no meningeal signs CARDIOVASCULAR: Regular rate and rhythm. Has loud harsh systolic murmur heard over whole L precordium and at base of the heart, no rub. healed sternal incision RESPIRATORY: Breath sounds equal bilaterally. No rales, wheezing or rhonchi. Decreased breath sounds at bases, no E to A changes ABDOMEN: Soft, non-tender, nondistended. Bowel sounds present and normoactive. No guarding. No rebound. No organomegaly. EXTREMITIES: No clubbing, cyanosis, or joint effusion, has good ROM. Has pitting edema both LE, but improving. No calf tenderness. Well perfused and warm. LUE AVF looks ok. PICC ok NEUROLOGICAL: Non-focal PSYCHIATRIC: Normal affect, calm and cooperative. LINE: No evidence of infection Assessment & Plan Remarks IMPRESSION SOB, etiology?, CXR no significant change in basilar infiltrates, has imprioved fairly quickly - possibly pulmonary edema, +/- PNA, he has some cough with white phlegm - temps ok, WBC mildly elevated - ? 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
[2017-01-03] MEDS: CINACALCET HYDROCHLORIDE 30 MG TAB PO SCH (15:37)
[2017-01-03] MEDS: CEFEPIME INJ 1,000 MG in SODIUM CHLORIDE 0.9% INJ 100 ML IV SCH (15:38)
[2017-01-03] MEDS ORDERED: EPINEPHrine HCL (1:10,000) 1 MG/10 ML SYRINGE ONE (16:01)
[2017-01-03] MEDS ORDERED: ATROPINE SULFATE 1 MG/10 ML SYRINGE ONE (16:01)
--- NOTE | 2017-01-03 16:52 | RADRPT ---
EXAM DATE/TIME: 01/03/2017 16:28 [facility] COMPARISON: CHEST PA & LAT, January 02, 2017, 16:09. INDICATIONS : Post left thoracentesis MEDICAL HISTORY : Myocardial infarction. Congestive heart failure. Hypercholesterolemia. V-tach. HTN. Dyspnea. Umbilica l hernia. Renal failure. Arthritis. Diabetes. Anemia. MRSA. Anticoagulant therapy SURGICAL HISTORY : CABG. Umbilical hernia repair. Left arm dialysis fistula. ORIF left wrist. Rotator cuff repair. Blood transfusions ENCOUNTER: Initial ACUITY: 1 day PAIN SCORE: 0/10 LOCATION: Left chest FINDINGS: A single AP portable erect expiratory view of the chest was obtained and emonstrates no evidence of p neumothorax. Coarse airspace disease is noted in both lungs or consolidation again noted the right luz ng base. The right costophrenic angle remains blunted. The patient is again noted to be status post m edian sternotomy. The right-sided PICC line remains in place and there are multiple overlying electro cardiogram leads. Heart size appears at the upper limits of normal. The bony thorax is intact. CONCLUSION: 1. No evidence of pneumothorax status post thoracentesis. 2. Bilateral airspace disease remains with consolidation in the right lung base. 3. The right costophrenic angle remains blunted. Roland Ferguson MD on January 03, 2017 at 16:49 Board Certified Radiologist. This report was verified electronically.
[2017-01-03] MEDS ORDERED: LIDOCAINE HCL 1% PF 30 ML VIAL ONE (16:57)
[2017-01-03 18:02] LABS: TOTAL PROTEIN,PLEURAL FLUID 3.1 GM/DL
[2017-01-03 19:06] LABS: PLEURAL FLUID LYMPHS 19 %
[2017-01-03] MEDS: TEMAZEPAM 15 MG CAP PO PRN (20:55)
[2017-01-04] VITALS (26 sets, daily range): BP systolic 96–146; BP diastolic 53–74; PULSE 69–102; RESP 18; TEMP 98–98.4; O2SAT 90–99
[2017-01-04] MEDS: LEVOTHYROXINE SODIUM 50 MCG TAB PO SCH (05:02)
[2017-01-04] MEDS: VITAMIN B CMPLX/VITC/FOLIC AC CAP PO SCH (09:00)
[2017-01-04] MEDS: SUCROFERRIC OXYHYDROXIDE 500 MG PO SCH ×3 (09:30→18:17)
[2017-01-04 09:50] LABS: AUTOMATED NEUTROPHIL # 6.5 TH/MM3 (1.8-7.7); BASOPHIL # 0.2 TH/MM3 (0-0.2); EOSINOPHIL # 0.4 TH/MM3 (0-0.4); EOSINOPHIL % 4.9 % (0.0-4.0); HEMATOCRIT 26.6 % (39.0-51.0); HEMO FLAGS DIFF FINAL; LYMPH % 6.1 % (9.0-44.0); LYMPHOCYTE # 0.5 TH/MM3 (1.0-4.8); MEAN CELL VOLUME 97.3 FL (80.0-100.0); MEAN CORPUSCULAR HEMOGLOBIN 31.9 PG (27.0-34.0); MEAN CORPUSCULAR HGB CONC 32.9 % (32.0-36.0); PLATELET COUNT 373 TH/MM3 (150-450); RED BLOOD COUNT 2.73 MIL/MM3 (4.50-5.90); RED CELL DISTRIBUTION WIDTH 18.6 % (11.6-17.2)
--- NOTE | 2017-01-04 09:59 | HHI.NPPN ---
Subjective History of Present Illness 71 year old with ESRD increased dyspnea Additional Remarks Seen on HD today, tolerating HD well. Had thoracentesis yesterday Review of Systems Respiratory Lungs: SOB Objective Data Data 01/03/17 01/04/17 19:00 07:00 Intake Total 360 ml 490 ml Output Total 0 ml 0 ml Balance 360 ml 490 ml Intake Oral 360 ml 480 ml IV Total 10 ml Output Urine Total 0 ml 0 ml # Bowel Movements 0 Vital Signs Date Time Temp Pulse Resp B/P Pulse Ox O2 Delivery O2 Flow Rate FiO2 01/04/17 07:01 69 01/04/17 06:00 80 01/04/17 05:00 84 01/04/17 04:00 79 01/04/17 04:00 98.1 79 18 129/74 95 01/04/17 03:00 79 01/04/17 02:00 82 01/04/17 01:00 85 01/04/17 00:00 98.4 81 18 142/68 93 01/04/17 00:00 81 01/03/17 23:00 79 01/03/17 22:00 75 01/03/17 21:00 77 01/03/17 20:00 72 01/03/17 20:00 98.0 72 20 131/62 97 01/03/17 18:21 72 01/03/17 16:23 97.9 79 20 155/78 92 01/03/17 16:00 78 01/03/17 15:48 97.2 78 18 142/78 98 01/03/17 15:00 82 01/03/17 14:00 82 01/03/17 13:00 84 01/03/17 12:37 82 01/03/17 12:13 93 Nasal Cannula 3.00 01/03/17 11:00 97.4 87 18 96/57 92 01/03/17 11:00 84 01/03/17 11:00 84 -: 01/04/17 0850 01/03/17 0640 Microbiology 01/03/17 Gram Stain, Received Pending 01/03/17 Body Fluid Culture, Received Pending 01/03/17 Fungal Smear, Received Pending 01/03/17 Fungal Culture, Received Pending Physical Exam General Appearance: No Acute Distress, Comfortable Eyes Eye Exam: Sclera White, Extraocular Movement Intact Throat Throat Exam: Oral Mucosa [place] & Moist, Oral Pharynx Normal Neck Neck Exam: Neck Supple, Trachea Midline Pulmonary Resp Exam: Decreased Bases Cardiology CV Exam: Regular, Normal Sinus Rhythm Gastrointestinal/Abdomen GI Exam: Soft, Non-Tender, Bowel Sounds Present Musculoskeletal MS Exam: Joints Intact Integumentary Skin Exam: Warm, Dry Extremeties Extremities Exam: Pitting Edema Neurologic Neuro Exam: Alert, Awake, Oriented, No Focal Deficits Psychiatric Psych Exam: Appropriate Responses PUD Prophylasis PUD Prophylaxis: Protonix Assessment/Plan Problem List: (1) ESRD (end stage renal disease) on dialysis Plan: Seen on HD, tolerating HD well. Continue HD TTS Next HD Friday (outpatient if discharged) Had thoracentesis yesterday T4 normal High calcium better post Pamidronate added Vitamin D 3 supplements Echo 45% EF moderate , (2) Pneumonia Plan: on Daptomycin/cefepime/Zithromax - follow with ID. 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 S/P surgery WBC decreased, afebrile (3) Hypoxemia Plan: observe on O2 - feels better post thoracentesis (4) Diabetes Plan: monitor (5) CAD (coronary artery disease) Plan: recent CABG Problem Qualifiers (1) Pneumonia: Qualified Code: J18.1 - Pneumonia of right lower lobe due to infectious organism (2) Diabetes: Qualified Code: E13.22 - Other specified diabetes mellitus with chronic kidney disease on chronic dialysis, unspecified usp insulin use status (3) CAD (coronary artery disease): Qualified Code: I25.10 - Coronary artery disease involving [place] heart, angina presence unspecified, unspecified vessel or lesion type Alexys Dean MD Jan 04, 2017 09:59
--- NOTE | 2017-01-04 10:05 | HHI.PR ---
Subjective History of Present Illness Patient feel better no acute issue. have Left pleural effusion cardiothoracic surgeon input noted s/p U/S guided thoracentesis. getting hemodialysis today. Review of Systems Constitutional Constitutional: Fatigue, Weakness Pulmonary Respiratory: Coughing, Shortness of Breath Vitals/Results Intake & Output 01/03/17 01/03/17 01/04/17 14:59 22:59 06:59 Intake Total 360 ml 490 ml Output Total 0 ml 0 ml Balance 360 ml 490 ml Intake Oral 360 ml 480 ml IV Total 10 ml Output Urine Total 0 ml 0 ml # Bowel Movements 0 Vital Signs Vital Signs Date Time Temp Pulse Resp B/P Pulse Ox O2 Delivery O2 Flow Rate FiO2 01/04/17 07:01 69 01/04/17 06:00 80 01/04/17 05:00 84 01/04/17 04:00 79 01/04/17 04:00 98.1 79 18 129/74 95 01/04/17 03:00 79 01/04/17 02:00 82 01/04/17 01:00 85 01/04/17 00:00 98.4 81 18 142/68 93 01/04/17 00:00 81 01/03/17 23:00 79 01/03/17 22:00 75 01/03/17 21:00 77 01/03/17 20:00 72 01/03/17 20:00 98.0 72 20 131/62 97 01/03/17 18:21 72 01/03/17 16:23 97.9 79 20 155/78 92 01/03/17 16:00 78 01/03/17 15:48 97.2 78 18 142/78 98 01/03/17 15:00 82 01/03/17 14:00 82 01/03/17 13:00 84 01/03/17 12:37 82 01/03/17 12:13 93 Nasal Cannula 3.00 01/03/17 11:00 97.4 87 18 96/57 92 01/03/17 11:00 84 01/03/17 11:00 84 CBC/BMP: 01/04/17 0850 01/03/17 0640 Lab Results Laboratory Tests Test 01/03/17 01/04/17 16:30 08:50 Pleural Fluid WBC 455 /MM3 Pleural Fluid RBC 29 /MM3 Pleural Fluid Neutrophils 6 % Pleural Fluid Lymphocytes 19 % Pleural Fluid Eosinophils 5 % Pleural Fluid Basophils 1 % Pleural Fluid Histiocytes 62 % Pleural Fluid Mesothelial 7 % Cells Pleural Fluid Total Protein 3.1 GM/DL Pleural Fluid LDH 84 U/L Pleural Fluid Glucose 104 MG/DL White Blood Count 8.0 TH/MM3 Red Blood Count 2.73 MIL/MM3 Hemoglobin 8.7 GM/DL Hematocrit 26.6 % Mean Corpuscular Volume 97.3 FL Mean Corpuscular Hemoglobin 31.9 PG Mean Corpuscular Hemoglobin 32.9 % Concent Red Cell Distribution Width 18.6 % Platelet Count 373 TH/MM3 Mean Platelet Volume 6.8 FL Neutrophils (%) (Auto) 81.0 % Lymphocytes (%) (Auto) 6.1 % Monocytes (%) (Auto) 6.0 % Eosinophils (%) (Auto) 4.9 % Basophils (%) (Auto) 2.0 % Neutrophils # (Auto) 6.5 TH/MM3 Lymphocytes # (Auto) 0.5 TH/MM3 Monocytes # (Auto) 0.5 TH/MM3 Eosinophils # (Auto) 0.4 TH/MM3 Basophils # (Auto) 0.2 TH/MM3 CBC Comment DIFF FINAL Differential Comment Microbiology Microbiology 01/03/17 Gram Stain, Received Pending 01/03/17 Body Fluid Culture, Received Pending 01/03/17 Fungal Smear, Received Pending 01/03/17 Fungal Culture, Received Pending Physical Exam General General Appearance: No Acute Distress, Comfortable Eyes Eye Exam: Sclera White, Extraocular Movement Intact Throat Throat Exam: Oral Mucosa [place] & Moist, Oral Pharynx Normal Neck Neck Exam: Neck Supple, Trachea Midline Pulmonary Resp Exam: Clear Bilaterally, Breath Sounds Equal, Decreased Bases Cardiology CV Exam: Regular, Normal Sinus Rhythm Gastrointestinal/Abdomen GI Exam: Soft, Non-Tender, Bowel Sounds Present Musculoskeletal MS Exam: Joints Intact Integumentary Skin Exam: Warm, Dry Extremeties Extremities Exam: Pitting Edema Neurologic Neuro Exam: Alert, Awake, Oriented, No Focal Deficits Psychiatric Psych Exam: Appropriate Responses VTE Prophylaxis VTE Prophylaxis Meds: Heparin PUD Prophylasis PUD Prophylaxis: Protonix Assessment/Plan Assessment/Plan ASSESSMENT/PLAN 1. This is a 71-year-old male who came to the ER diagnosed with shortness of breath, cough, congestion secondary to right-sided pneumonia. The patient is on Daptomycin, Cefepime, Zithromax. pulmonary input noted for further recommendation. 2. Chronic renal failure. Nephrology input noted. The patient needs dialysis Friday, and Friday. 3. High TSH. on 50 mcg of levothyroxine daily. 4. History of insomnia. Continue with temazepam 30 mg p.o. at bedtime. 5. History of constipation. Continue home medication. 6. History of for chronic renal failure. Continue home medication. The patient is on hemodialysis. 7. Leukocytosis most likely secondary to pneumonia...better. 8. Anemia secondary to chronic disease including renal failure. 9. Having septic right shoulder joint. infectious disease input noted for further recommendation of antibiotic. 10. Sepsis on admission. The patient is on antibiotic. 11. DVT prophylaxis. Heparin 5000 units subcutaneous twice a day. 12. GI prophylaxis, Protonix 40 mg p.o. daily. 13. Left pleural effusion cardiothoracic surgeon input noted s/p U/S guided thoracentesis. Check CBC with diff CMP in AM. We are going to manage the patient on a daily basis and make recommendation on a daily basis. Discussed Condition with: Patient Jonn Fletcher MD Jan 04, 2017 10:05
[2017-01-04 10:08] LABS: ALKALINE PHOSPHATASE 66 U/L (45-117); ALT (GPT) 19 U/L (12-78); ANION GAP 10 MEQ/L (5-15); AST (GOT) 11 U/L (15-37); BICARBONATE 28.5 MEQ/L (21.0-32.0); BLOOD UREA NITROGEN 29 MG/DL (7-18); CHLORIDE 96 MEQ/L (98-107); GLOMERULAR FILTRATION RATE 9 ML/MIN (>89); SODIUM (NA) 134 MEQ/L (136-145); TOTAL BILIRUBIN ADULT 0.3 MG/DL (0.2-1.0)
[2017-01-04] MEDS: EPOETIN ALFA 10,000 UNITS/ML VIAL IV PRN (10:09)
[2017-01-04] MEDS: SODIUM CHLOR 0.9% 1000 ML INJ 1,000 ML IV PRN (10:09)
[2017-01-04] MEDS: GELATIN 12 MM/7 MM FOAM TOP PRN (10:09)
[2017-01-04] MEDS: LANTHANUM CARBONATE 500 MG CHEWABLE TABLET CHEW SCH ×4 (13:00→16:38)
[2017-01-04] MEDS: LINEZOLID 600 MG TAB PO SCH ×2 (13:09→20:01)
[2017-01-04] MEDS: ASPIRIN 325 MG TAB PO SCH (13:09)
[2017-01-04] MEDS: CALCITRIOL 0.25 MCG CAP PO SCH (13:09)
[2017-01-04] MEDS: AZITHROMYCIN 250 MG TAB PO SCH (13:09)
[2017-01-04] MEDS: DOCUSATE SODIUM 100 MG CAP PO SCH (13:09)
[2017-01-04] MEDS: RIFAMPIN 150 MG CAP PO SCH (13:09)
[2017-01-04] MEDS: AMIODARONE 200 MG TAB PO SCH ×2 (13:10→20:01)
[2017-01-04] MEDS: CHOLECALCIFEROL (VIT D3) 5000 UNIT CAP PO SCH (13:10)
[2017-01-04] MEDS: SODIUM CHLORIDE 0.9% FLUSH 10 ML FLUSH IV FLUSH SCH ×2 (13:10→20:01)
[2017-01-04] MEDS: CEFEPIME INJ 1,000 MG in SODIUM CHLORIDE 0.9% INJ 100 ML IV SCH (15:45)
[2017-01-04] MEDS: CINACALCET HYDROCHLORIDE 30 MG TAB PO SCH (15:45)
[2017-01-04] MEDS: oxyCODONE/ACETAMINOPHEN 5 MG/325 MG TAB PO PRN (16:35)
[2017-01-04] MEDS: TEMAZEPAM 15 MG CAP PO PRN (20:01)
[2017-01-05] VITALS (24 sets, daily range): BP systolic 104–144; BP diastolic 41–74; PULSE 16–83; RESP 18; TEMP 97.9–98.3; O2SAT 92–96
[2017-01-05] MEDS: oxyCODONE/ACETAMINOPHEN 5 MG/325 MG TAB PO PRN (02:20)
[2017-01-05 05:14] LABS: AUTOMATED NEUTROPHIL # 5.7 TH/MM3 (1.8-7.7); BASOPHIL # 0.2 TH/MM3 (0-0.2); BASOPHIL % 2.2 % (0.0-2.0); EOSINOPHIL # 0.5 TH/MM3 (0-0.4); EOSINOPHIL % 5.7 % (0.0-4.0); HEMATOCRIT 28.8 % (39.0-51.0); HEMO FLAGS DIFF FINAL; LYMPH % 10.8 % (9.0-44.0); LYMPHOCYTE # 0.9 TH/MM3 (1.0-4.8); MEAN CELL VOLUME 97.3 FL (80.0-100.0); MEAN CORPUSCULAR HEMOGLOBIN 31.9 PG (27.0-34.0); MEAN CORPUSCULAR HGB CONC 32.8 % (32.0-36.0); MONO % 9.3 % (0.0-8.0); PLATELET COUNT 365 TH/MM3 (150-450); RED BLOOD COUNT 2.96 MIL/MM3 (4.50-5.90); RED CELL DISTRIBUTION WIDTH 19.2 % (11.6-17.2)
[2017-01-05 05:24] LABS: ANION GAP 10 MEQ/L (5-15); AST (GOT) 12 U/L (15-37); BICARBONATE 31.1 MEQ/L (21.0-32.0); BLOOD UREA NITROGEN 23 MG/DL (7-18); CHLORIDE 94 MEQ/L (98-107); GLOMERULAR FILTRATION RATE 10 ML/MIN (>89); POTASSIUM 3.7 MEQ/L (3.5-5.1); SODIUM (NA) 135 MEQ/L (136-145)
[2017-01-05 05:25] LABS: ALT (GPT) 17 U/L (12-78)
[2017-01-05 05:27] LABS: ALKALINE PHOSPHATASE 85 U/L (45-117); TOTAL BILIRUBIN ADULT 0.2 MG/DL (0.2-1.0)
[2017-01-05] MEDS: LEVOTHYROXINE SODIUM 50 MCG TAB PO SCH (05:34)
[2017-01-05] MEDS: DAPTOMYCIN IV SCH (09:00)
[2017-01-05] MEDS: DOCUSATE SODIUM 100 MG CAP PO SCH (09:00)
[2017-01-05] MEDS: AMIODARONE 200 MG TAB PO SCH ×2 (09:00→20:04)
[2017-01-05] MEDS: ASPIRIN 325 MG TAB PO SCH (09:00)
[2017-01-05] MEDS: SODIUM CHLORIDE 0.9% FLUSH 10 ML FLUSH IV FLUSH SCH ×2 (09:00→20:05)
[2017-01-05] MEDS: LANTHANUM CARBONATE 500 MG CHEWABLE TABLET CHEW SCH ×4 (09:00→18:41)
[2017-01-05] MEDS: LINEZOLID 600 MG TAB PO SCH ×2 (09:00→20:04)
[2017-01-05] MEDS: CHOLECALCIFEROL (VIT D3) 5000 UNIT CAP PO SCH (09:00)
[2017-01-05] MEDS: RIFAMPIN 150 MG CAP PO SCH (09:00)
[2017-01-05] MEDS: CALCITRIOL 0.25 MCG CAP PO SCH (09:00)
[2017-01-05] MEDS: VITAMIN B CMPLX/VITC/FOLIC AC CAP PO SCH (09:00)
[2017-01-05] MEDS: AZITHROMYCIN 250 MG TAB PO SCH (09:00)
[2017-01-05] MEDS: SODIUM CHLORIDE 0.9% IV SCH (09:00)
[2017-01-05] MEDS: SUCROFERRIC OXYHYDROXIDE 500 MG PO SCH ×3 (09:30→18:30)
--- NOTE | 2017-01-05 11:52 | RADRPT ---
EXAM DATE/TIME: 01/05/2017 08:38 [facility] COMPARISON: CHEST PA & LAT, January 02, 2017, 16:09. INDICATIONS : Short of breath. MEDICAL HISTORY : Myocardial infarction. Congestive heart failure. Hypercholesterolemia. Vtach. SURGICAL HISTORY : CABG. Umbilical hernia repair. Left arm dialysis fistula. ORIF left wrist. ENCOUNTER: Subsequent ACUITY: 4 - 6 days PAIN SCORE: 0/10 LOCATION: Bilateral upper chest FINDINGS: PA and lateral views of the chest demonstrate coarse interstitial densities and scattered air space d isease greater in the right lower lobe. Cardiomegaly with previous CABG. Right-sided PICC line with tip in the SVC. Osseous structures are intact. CONCLUSION: 1. Course interstitial densities consistent with interstitial lung disease. 2. Scattered airspace disease greater in the right lower lobe. 3. No significant change. Chris Sorto MD on January 05, 2017 at 9:00 Board Certified Radiologist. This report was verified electronically.
[2017-01-05] MEDS: CINACALCET HYDROCHLORIDE 30 MG TAB PO SCH (15:05)
[2017-01-05] MEDS: CEFEPIME INJ 1,000 MG in SODIUM CHLORIDE 0.9% INJ 100 ML IV SCH (15:05)
--- NOTE | 2017-01-05 15:08 | HHI.NPPN ---
Subjective History of Present Illness 71 year old with ESRD increased dyspnea Additional Remarks No acute complaints Review of Systems Respiratory Lungs: SOB Objective Data Data Vital Signs Date Time Temp Pulse Resp B/P (MAP) Pulse Ox O2 Delivery O2 Flow Rate FiO2 01/05/17 14:00 74 01/05/17 13:22 75 01/05/17 12:00 78 01/05/17 11:00 97.9 78 18 105/59 (74) 95 01/05/17 11:00 76 01/05/17 10:00 76 01/05/17 09:00 82 01/05/17 07:47 92 Nasal Cannula 3.00 01/05/17 07:00 98.0 76 18 144/74 (97) 96 01/05/17 07:00 77 01/05/17 06:00 70 01/05/17 05:00 72 01/05/17 04:00 75 01/05/17 04:00 98.0 75 18 104/55 (71) 94 01/05/17 03:00 77 01/05/17 02:00 73 01/05/17 01:00 81 01/05/17 00:00 98.3 79 18 109/52 (71) 95 01/05/17 00:00 79 01/04/17 23:00 81 01/04/17 22:08 91 Nasal Cannula 3.00 01/04/17 22:00 75 01/04/17 21:00 80 01/04/17 20:00 98.1 79 18 96/53 (67) 95 01/04/17 20:00 79 01/04/17 18:03 84 01/04/17 17:58 86 01/04/17 16:01 91 01/04/17 15:30 98.3 92 18 146/65 (92) 93 01/04/17 15:30 88 -: 01/05/17 0346 01/05/17 0346 Physical Exam General Appearance: No Acute Distress, Comfortable Eyes Eye Exam: Sclera White, Extraocular Movement Intact Throat Throat Exam: Oral Mucosa [place] & Moist, Oral Pharynx Normal Neck Neck Exam: Neck Supple, Trachea Midline Pulmonary Resp Exam: Clear Bilaterally, Breath Sounds Equal, Decreased Bases Cardiology CV Exam: Regular, Normal Sinus Rhythm Gastrointestinal/Abdomen GI Exam: Soft, Non-Tender, Bowel Sounds Present Musculoskeletal MS Exam: Joints Intact Integumentary Skin Exam: Warm, Dry Extremeties Extremities Exam: Pitting Edema Neurologic Neuro Exam: Alert, Awake, Oriented, No Focal Deficits Psychiatric Psych Exam: Appropriate Responses PUD Prophylasis PUD Prophylaxis: Protonix Assessment/Plan Problem List: (1) ESRD (end stage renal disease) on dialysis ICD Codes: N18.6 - End stage renal disease; Z99.2 - Dependence on renal dialysis Status: Chronic Plan: Tolerated HD yesterday, with 3L UF. Continue HD TTS Some difficulty with venous needles, however had good treatment without infiltration. Next HD Friday (outpatient if discharged) Had thoracentesis Friday, feeling better. Volume status, electrolytes stable. T4 normal High calcium better post Pamidronate Previously added Vitamin D 3 supplements Echo 45% EF moderate , (2) Pneumonia ICD Codes: J18.9 - Pneumonia Status: Acute Plan: on Daptomycin/cefepime/Zithromax - follow with ID. 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
[2017-01-05] MEDS: TEMAZEPAM 15 MG CAP PO PRN (20:04)
[2017-01-06] VITALS (29 sets, daily range): BP systolic 95–130; BP diastolic 53–74; PULSE 66–96; RESP 16–18; TEMP 97.6–98.5; O2SAT 90–95
[2017-01-06] MEDS: oxyCODONE/ACETAMINOPHEN 5 MG/325 MG TAB PO PRN (00:44)
[2017-01-06] MEDS: LEVOTHYROXINE SODIUM 50 MCG TAB PO SCH (05:17)
--- NOTE | 2017-01-06 08:47 | HHI.PR ---
Subjective History of Present Illness Patient feel better no acute issue. discharge plan when ok with all. Review of Systems Constitutional Constitutional: Fatigue, Weakness Pulmonary Respiratory: Coughing Vitals/Results Vital Signs Vital Signs Date Time Temp Pulse Resp B/P (MAP) Pulse Ox O2 Delivery O2 Flow Rate FiO2 01/06/17 07:41 86 01/06/17 07:41 92 Nasal Cannula 1.50 01/06/17 07:32 98.1 85 18 102/53 (69) 92 01/06/17 06:00 90 01/06/17 05:00 89 01/06/17 04:00 96 01/06/17 04:00 98.4 96 18 123/74 (90) 92 01/06/17 03:00 89 01/06/17 02:00 88 01/06/17 01:00 80 01/06/17 00:00 98.0 94 18 130/60 (83) 93 01/06/17 00:00 84 01/05/17 23:00 80 01/05/17 22:00 82 01/05/17 21:00 78 01/05/17 20:00 82 01/05/17 20:00 98.1 82 18 119/56 (77) 94 01/05/17 18:01 78 01/05/17 17:00 76 01/05/17 16:17 83 01/05/17 15:12 97.9 77 18 108/41 (63) 94 01/05/17 15:01 77 01/05/17 14:00 74 01/05/17 13:22 75 01/05/17 12:00 78 01/05/17 11:00 97.9 78 18 105/59 (74) 95 01/05/17 11:00 76 01/05/17 10:00 76 01/05/17 09:00 82 CBC/BMP: 01/05/17 0346 01/05/17 0346 Physical Exam General General Appearance: No Acute Distress, Comfortable Eyes Eye Exam: Sclera White, Extraocular Movement Intact Throat Throat Exam: Oral Mucosa [place] & Moist, Oral Pharynx Normal Neck Neck Exam: Neck Supple, Trachea Midline Pulmonary Resp Exam: Clear Bilaterally, Breath Sounds Equal, Decreased Bases Cardiology CV Exam: Regular, Normal Sinus Rhythm Gastrointestinal/Abdomen GI Exam: Soft, Non-Tender, Bowel Sounds Present Musculoskeletal MS Exam: Joints Intact Integumentary Skin Exam: Warm, Dry Extremeties Extremities Exam: Pitting Edema Neurologic Neuro Exam: Alert, Awake, Oriented, No Focal Deficits Psychiatric Psych Exam: Appropriate Responses VTE Prophylaxis VTE Prophylaxis Meds: Heparin PUD Prophylasis PUD Prophylaxis: Protonix Assessment/Plan Assessment/Plan ASSESSMENT/PLAN 1. This is a 71-year-old male who came to the ER diagnosed with shortness of breath, cough, congestion secondary to right-sided pneumonia. The patient is on Daptomycin, Levaquin. pulmonary input noted for further recommendation. 2. Chronic renal failure. Nephrology input noted. The patient needs dialysis Friday, and Friday. 3. High TSH. on 50 mcg of levothyroxine daily. 4. History of insomnia. Continue with temazepam 30 mg p.o. at bedtime. 5. History of constipation. Continue home medication. 6. History of for chronic renal failure. Continue home medication. The patient is on hemodialysis. 7. Leukocytosis most likely secondary to pneumonia..resolved. 8. Anemia secondary to chronic disease including renal failure. 9. Having septic right shoulder joint. infectious disease input noted for further recommendation of antibiotic. 10. Sepsis on admission. The patient is on antibiotic per ID Recommendation. 11. DVT prophylaxis. Heparin 5000 units subcutaneous twice a day. 12. GI prophylaxis, Protonix 40 mg p.o. daily. 13. Left pleural effusion cardiothoracic surgeon input noted s/p U/S guided thoracentesis. Check CBC with diff CMP in AM. We are going to manage the patient on a daily basis and make recommendation on a daily basis. Discussed Condition with: Patient Jonn Fletcher MD Jan 06, 2017 08:47
--- NOTE | 2017-01-06 08:47 | HHI.PR ---
Subjective History of Present Illness Patient seen on feel better no acute issue. Antibiotic per ID Recommendation. Review of Systems Constitutional Constitutional: Fatigue, Weakness Pulmonary Respiratory: Coughing, Shortness of Breath Vitals/Results Vital Signs Vital Signs Date Time Temp Pulse Resp B/P (MAP) Pulse Ox O2 Delivery O2 Flow Rate FiO2 01/06/17 07:41 86 01/06/17 07:41 92 Nasal Cannula 1.50 01/06/17 07:32 98.1 85 18 102/53 (69) 92 01/06/17 06:00 90 01/06/17 05:00 89 01/06/17 04:00 96 01/06/17 04:00 98.4 96 18 123/74 (90) 92 01/06/17 03:00 89 01/06/17 02:00 88 01/06/17 01:00 80 01/06/17 00:00 98.0 94 18 130/60 (83) 93 01/06/17 00:00 84 01/05/17 23:00 80 01/05/17 22:00 82 01/05/17 21:00 78 01/05/17 20:00 82 01/05/17 20:00 98.1 82 18 119/56 (77) 94 01/05/17 18:01 78 01/05/17 17:00 76 01/05/17 16:17 83 01/05/17 15:12 97.9 77 18 108/41 (63) 94 01/05/17 15:01 77 01/05/17 14:00 74 01/05/17 13:22 75 01/05/17 12:00 78 01/05/17 11:00 97.9 78 18 105/59 (74) 95 01/05/17 11:00 76 01/05/17 10:00 76 01/05/17 09:00 82 CBC/BMP: 01/05/17 0346 01/05/17 0346 Physical Exam General General Appearance: No Acute Distress, Comfortable Eyes Eye Exam: Sclera White, Extraocular Movement Intact Throat Throat Exam: Oral Mucosa [place] & Moist, Oral Pharynx Normal Neck Neck Exam: Neck Supple, Trachea Midline Pulmonary Resp Exam: Clear Bilaterally, Breath Sounds Equal, Decreased Bases Cardiology CV Exam: Regular, Normal Sinus Rhythm Gastrointestinal/Abdomen GI Exam: Soft, Non-Tender, Bowel Sounds Present Musculoskeletal MS Exam: Joints Intact Integumentary Skin Exam: Warm, Dry Extremeties Extremities Exam: Pitting Edema Neurologic Neuro Exam: Alert, Awake, Oriented, No Focal Deficits Psychiatric Psych Exam: Appropriate Responses VTE Prophylaxis VTE Prophylaxis Meds: Heparin PUD Prophylasis PUD Prophylaxis: Protonix Assessment/Plan Assessment/Plan ASSESSMENT/PLAN 1. This is a 71-year-old male who came to the ER diagnosed with shortness of breath, cough, congestion secondary to right-sided pneumonia. The patient is on Daptomycin, Levaquin. pulmonary input noted for further recommendation. 2. Chronic renal failure. Nephrology input noted. The patient needs dialysis Friday, and Friday. 3. High TSH. on 50 mcg of levothyroxine daily. 4. History of insomnia. Continue with temazepam 30 mg p.o. at bedtime. 5. History of constipation. Continue home medication. 6. History of for chronic renal failure. Continue home medication. The patient is on hemodialysis. 7. Leukocytosis most likely secondary to pneumonia...better. 8. Anemia secondary to chronic disease including renal failure. 9. Having septic right shoulder joint. infectious disease input noted for further recommendation of antibiotic. 10. Sepsis on admission. The patient is on antibiotic per ID Recommendation. 11. DVT prophylaxis. Heparin 5000 units subcutaneous twice a day. 12. GI prophylaxis, Protonix 40 mg p.o. daily. 13. Left pleural effusion cardiothoracic surgeon input noted s/p U/S guided thoracentesis. Check CBC with diff CMP in AM. We are going to manage the patient on a daily basis and make recommendation on a daily basis. Discussed Condition with: Patient Jonn Fletcher MD Jan 06, 2017 08:46
[2017-01-06] MEDS: CALCITRIOL 0.25 MCG CAP PO SCH (09:00)
[2017-01-06] MEDS: LANTHANUM CARBONATE 500 MG CHEWABLE TABLET CHEW SCH ×3 (09:00→17:30)
[2017-01-06] MEDS: DOCUSATE SODIUM 100 MG CAP PO SCH (09:54)
[2017-01-06] MEDS: ASPIRIN 325 MG TAB PO SCH (09:55)
[2017-01-06] MEDS: AZITHROMYCIN 250 MG TAB PO SCH (09:55)
[2017-01-06] MEDS: CHOLECALCIFEROL (VIT D3) 5000 UNIT CAP PO SCH (09:55)
[2017-01-06] MEDS: LINEZOLID 600 MG TAB PO SCH ×2 (09:55→20:25)
[2017-01-06] MEDS: RIFAMPIN 150 MG CAP PO SCH (09:55)
[2017-01-06] MEDS: VITAMIN B CMPLX/VITC/FOLIC AC CAP PO SCH (09:55)
[2017-01-06] MEDS: AMIODARONE 200 MG TAB PO SCH ×2 (09:55→20:25)
[2017-01-06] MEDS: SODIUM CHLORIDE 0.9% FLUSH 10 ML FLUSH IV FLUSH SCH ×2 (09:57→20:25)
[2017-01-06] MEDS: SUCROFERRIC OXYHYDROXIDE 500 MG PO SCH ×3 (09:58→18:36)
--- NOTE | 2017-01-06 10:42 | HHI.NPPN ---
Subjective History of Present Illness 71 year old with ESRD increased dyspnea Additional Remarks No acute complaints Review of Systems Respiratory Lungs: SOB Objective Data Data Vital Signs Date Time Temp Pulse Resp B/P (MAP) Pulse Ox O2 Delivery O2 Flow Rate FiO2 01/06/17 10:23 79 01/06/17 09:25 92 Nasal Cannula 1.50 01/06/17 09:06 84 01/06/17 08:00 84 01/06/17 07:41 86 01/06/17 07:41 92 Nasal Cannula 1.50 01/06/17 07:32 98.1 85 18 102/53 (69) 92 01/06/17 06:00 90 01/06/17 05:00 89 01/06/17 04:00 96 01/06/17 04:00 98.4 96 18 123/74 (90) 92 01/06/17 03:00 89 01/06/17 02:00 88 01/06/17 01:00 80 01/06/17 00:00 98.0 94 18 130/60 (83) 93 01/06/17 00:00 84 01/05/17 23:00 80 01/05/17 22:00 82 01/05/17 21:00 78 01/05/17 20:00 82 01/05/17 20:00 98.1 82 18 119/56 (77) 94 01/05/17 18:01 78 01/05/17 17:00 76 01/05/17 16:17 83 01/05/17 15:12 97.9 77 18 108/41 (63) 94 01/05/17 15:01 77 01/05/17 14:00 74 01/05/17 13:22 75 01/05/17 12:00 78 01/05/17 11:00 97.9 78 18 105/59 (74) 95 01/05/17 11:00 76 -: 01/05/17 0346 01/05/17 0346 Physical Exam General Appearance: No Acute Distress, Comfortable Eyes Eye Exam: Sclera White, Extraocular Movement Intact Throat Throat Exam: Oral Mucosa [place] & Moist, Oral Pharynx Normal Neck Neck Exam: Neck Supple, Trachea Midline Pulmonary Resp Exam: Clear Bilaterally, Decreased Bases Cardiology CV Exam: Regular, Normal Sinus Rhythm Gastrointestinal/Abdomen GI Exam: Soft, Non-Tender, Bowel Sounds Present Musculoskeletal MS Exam: Joints Intact Integumentary Skin Exam: Warm, Dry Extremeties Extremities Exam: Pitting Edema Neurologic Neuro Exam: Alert, Awake, Oriented, No Focal Deficits Psychiatric Psych Exam: Appropriate Responses PUD Prophylasis PUD Prophylaxis: Protonix Assessment/Plan Problem List: (1) ESRD (end stage renal disease) on dialysis ICD Codes: N18.6 - End stage renal disease; Z99.2 - Dependence on renal dialysis Status: Chronic Plan: Tolerated HD Friday, with 3L UF. Continue HD TTS Some difficulty with venous needles, however had good treatment without infiltration. Next HD Friday (outpatient if discharged) Had thoracentesis Friday, feeling better. Volume status, electrolytes stable. T4 normal High calcium better post Pamidronate Previously added Vitamin D 3 supplements Echo 45% EF moderate , (2) Pneumonia ICD Codes: J18.9 - Pneumonia Status: Acute Plan: on Daptomycin/cefepime/Zithromax - follow with ID. 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
[2017-01-06] MEDS: CEFEPIME INJ 1,000 MG in SODIUM CHLORIDE 0.9% INJ 100 ML IV SCH (15:00)
--- NOTE | 2017-01-06 15:26 | HHI.IDPN ---
Subjective Subjective Remarks Readmission for recurrent SOB. No fever. Mild cough. Breathing has improved fairly rapidly. Had HD yesterday. Chest US done for large L pleural effusion. Repeat echo still shows same mod . BC negative Notes reviewed Temps ok Breathing better Not SOB Pleural fluid, exudate, C/S negative No new complaint Feels much improved Antibiotics Cubicin Cefepime Zithromax Lines PICC Past Medical History Hx MSSA bacteremia treated Hx Strep bacteremia trated Hx discitis lumbar - treated No known history of endocarditis in the past. 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 Vital Signs Date Time Temp Pulse Resp B/P (MAP) Pulse Ox O2 Delivery O2 Flow Rate FiO2 01/06/17 14:16 86 01/06/17 13:01 83 01/06/17 12:55 97.6 80 16 114/64 (81) 94 01/06/17 12:55 94 1.50 01/06/17 12:27 83 01/06/17 11:48 87 01/06/17 10:23 79 01/06/17 09:25 92 Nasal Cannula 1.50 01/06/17 09:06 84 01/06/17 08:00 84 01/06/17 07:41 86 01/06/17 07:41 92 Nasal Cannula 1.50 01/06/17 07:32 98.1 85 18 102/53 (69) 92 01/06/17 06:00 90 01/06/17 05:00 89 01/06/17 04:00 96 01/06/17 04:00 98.4 96 18 123/74 (90) 92 01/06/17 03:00 89 01/06/17 02:00 88 01/06/17 01:00 80 01/06/17 00:00 98.0 94 18 130/60 (83) 93 01/06/17 00:00 84 01/05/17 23:00 80 01/05/17 22:00 82 01/05/17 21:00 78 01/05/17 20:00 82 01/05/17 20:00 98.1 82 18 119/56 (77) 94 01/05/17 18:01 78 01/05/17 17:00 76 01/05/17 16:17 83 . Laboratory Tests Test 01/05/17 03:46 White Blood Count 8.0 TH/MM3 Red Blood Count 2.96 MIL/MM3 Hemoglobin 9.4 GM/DL Hematocrit 28.8 % Mean Corpuscular Volume 97.3 FL Mean Corpuscular Hemoglobin 31.9 PG Mean Corpuscular Hemoglobin Concent 32.8 % Red Cell Distribution Width 19.2 % Platelet Count 365 TH/MM3 Mean Platelet Volume 7.3 FL Neutrophils (%) (Auto) 72.0 % Lymphocytes (%) (Auto) 10.8 % Monocytes (%) (Auto) 9.3 % Eosinophils (%) (Auto) 5.7 % Basophils (%) (Auto) 2.2 % Neutrophils # (Auto) 5.7 TH/MM3 Lymphocytes # (Auto) 0.9 TH/MM3 Monocytes # (Auto) 0.7 TH/MM3 Eosinophils # (Auto) 0.5 TH/MM3 Basophils # (Auto) 0.2 TH/MM3 CBC Comment DIFF FINAL Differential Comment Laboratory Tests Test 01/05/17 03:46 Blood Urea Nitrogen 23 MG/DL Creatinine 5.80 MG/DL Random Glucose 95 MG/DL Total Protein 5.6 GM/DL Albumin 2.2 GM/DL Calcium Level 10.9 MG/DL Alkaline Phosphatase 85 U/L Aspartate Amino Transf (AST/SGOT) 12 U/L Alanine Aminotransferase (ALT/SGPT) 17 U/L Total Bilirubin 0.2 MG/DL Sodium Level 135 MEQ/L Potassium Level 3.7 MEQ/L Chloride Level 94 MEQ/L Carbon Dioxide Level 31.1 MEQ/L Anion Gap 10 MEQ/L Estimat Glomerular Filtration Rate 10 ML/MIN Microbiology Date/Time Source Procedure Growth Status 01/03/17 16:30 Fluid Pleural Fluid Fungal Smear - Final NO FUNGAL ELEMENTS SEEN. Resulted 01/03/17 16:30 Fluid Pleural Fluid Fungal Culture Pending Resulted 01/03/17 16:30 Fluid Pleural Fluid Gram Stain - Final Complete 01/03/17 16:30 Fluid Pleural Fluid Body Fluid Culture - Final NO GROWTH IN 72 HRS.--AEROBICALLY OR ... Complete Imaging Last Impressions Chest X-Ray 01/02/17 0000 Signed Impressions: Service Date/Time: December 16:09 - CONCLUSION: 1. Bilateral pulmonary infiltrates consistent with pneumonia and/or pulmonary edema. Clinical correlation is recommended. 2. Small right pleural effusion. Humberto Barrera MD Chest Ultrasound 01/02/17 0000 Signed Impressions: Service Date/Time: December 11:46 - CONCLUSION: 1. Left pleural effusion as above. Alexys Nicolas MD Lung Scan-[facility] Nuclear Medicine 12/31/16 0000 Signed Impressions: Service Date/Time: Saturday, December 31, 2016 23:16 - CONCLUSION: Low probability pulmonary embolism. Nadir Serrano MD Physical Exam GENERAL: awake and alert, not in respiratory distress. Comfortable at rest SKIN: Warm and dry. No generalized rash, no ecchymoses and no evidence of embolic lesions. HEAD: Atraumatic. Normocephalic. No temporal wasting, or tenderness. EYES: [place] conjunctiva. No petechia or hemorrhage. No scleral icterus. No injection or drainage. EARS, NOSE AND THROAT: Nose without bleeding or purulent nasal discharge. Mucous membranes pink and moist. NECK: Trachea midline. Supple and not tender, no meningeal signs CARDIOVASCULAR: Regular rate and rhythm. Has loud harsh systolic murmur heard over whole L precordium and at base of the heart, no rub. healed sternal incision RESPIRATORY: Breath sounds equal bilaterally. No rales, wheezing or rhonchi. Decreased breath sounds at bases, no E to A changes ABDOMEN: Soft, non-tender, nondistended. Bowel sounds present and normoactive. No guarding. No rebound. No organomegaly. EXTREMITIES: No clubbing, cyanosis, or joint effusion, has good ROM. Has improving pitting edema both LE. No calf tenderness. LUE AVF looks ok. PICC ok NEUROLOGICAL: Non-focal PSYCHIATRIC: Normal affect, calm and cooperative. LINE: No evidence of infection Assessment & Plan Remarks IMPRESSION SOB, etiology?, CXR no significant change in basilar infiltrates, has imprioved fairly quickly - possibly pulmonary edema, +/- PNA, he has some cough with white phlegm - temps ok, WBC mildly elevated - ? 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
[2017-01-06] MEDS: CINACALCET HYDROCHLORIDE 30 MG TAB PO SCH (17:29)
[2017-01-06] MEDS: LEVOFLOXACIN 250 MG TAB PO SCH (17:30)
[2017-01-06] MEDS: TEMAZEPAM 15 MG CAP PO PRN (20:24)
[2017-01-07] VITALS (30 sets, daily range): BP systolic 96–126; BP diastolic 47–66; PULSE 70–93; RESP 16–18; TEMP 97.7–98.4; O2SAT 90–96
[2017-01-07 04:35] LABS: AUTOMATED NEUTROPHIL # 7.7 TH/MM3 (1.8-7.7); BASOPHIL # 0.1 TH/MM3 (0-0.2); EOSINOPHIL # 0.4 TH/MM3 (0-0.4); EOSINOPHIL % 4.4 % (0.0-4.0); HEMO FLAGS DIFF FINAL; LYMPH % 8.2 % (9.0-44.0); LYMPHOCYTE # 0.8 TH/MM3 (1.0-4.8); MEAN CELL VOLUME 97.1 FL (80.0-100.0); MEAN CORPUSCULAR HEMOGLOBIN 31.8 PG (27.0-34.0); MEAN CORPUSCULAR HGB CONC 32.8 % (32.0-36.0); MONO % 9.6 % (0.0-8.0); NEUT % 76.8 % (16.0-70.0); PLATELET COUNT 354 TH/MM3 (150-450); RED BLOOD COUNT 2.89 MIL/MM3 (4.50-5.90); RED CELL DISTRIBUTION WIDTH 19.1 % (11.6-17.2)
[2017-01-07 05:01] LABS: ALT (GPT) 15 U/L (12-78); ANION GAP 7 MEQ/L (5-15); AST (GOT) 7 U/L (15-37); BICARBONATE 31.3 MEQ/L (21.0-32.0); BLOOD UREA NITROGEN 37 MG/DL (7-18); CHLORIDE 94 MEQ/L (98-107); GLOMERULAR FILTRATION RATE 6 ML/MIN (>89); POTASSIUM 4.5 MEQ/L (3.5-5.1); SODIUM (NA) 132 MEQ/L (136-145)
[2017-01-07 05:04] LABS: ALKALINE PHOSPHATASE 81 U/L (45-117); TOTAL BILIRUBIN ADULT 0.2 MG/DL (0.2-1.0)
[2017-01-07] MEDS: LEVOTHYROXINE SODIUM 50 MCG TAB PO SCH (06:06)
[2017-01-07] MEDS: LANTHANUM CARBONATE 500 MG CHEWABLE TABLET CHEW SCH ×3 (09:00→17:50)
[2017-01-07] MEDS: CALCITRIOL 0.25 MCG CAP PO SCH (09:00)
[2017-01-07] MEDS: SUCROFERRIC OXYHYDROXIDE 500 MG PO SCH ×3 (09:30→17:53)
--- NOTE | 2017-01-07 09:32 | HHI.PR ---
Subjective History of Present Illness Patient feel better no acute issue. ok to discharge home today with home health care. Review of Systems Constitutional Constitutional: Fatigue, Weakness Pulmonary Respiratory: Coughing Vitals/Results Vital Signs Vital Signs Date Time Temp Pulse Resp B/P (MAP) Pulse Ox O2 Delivery O2 Flow Rate FiO2 01/07/17 06:14 81 01/07/17 05:02 74 01/07/17 04:38 84 01/07/17 03:46 97.7 83 16 126/64 (84) 90 01/07/17 03:16 81 01/07/17 02:03 84 01/07/17 01:01 87 01/07/17 00:10 98.0 84 16 124/66 (85) 91 01/07/17 00:09 84 01/06/17 23:01 80 01/06/17 22:20 74 01/06/17 21:00 80 01/06/17 20:10 76 01/06/17 19:54 98.5 82 16 117/65 (82) 95 01/06/17 19:54 95 Nasal Cannula 1.00 01/06/17 19:54 77 01/06/17 19:29 93 Nasal Cannula 1.50 01/06/17 18:40 81 01/06/17 17:00 80 01/06/17 16:00 78 01/06/17 15:42 98.5 79 16 95/59 (71) 90 01/06/17 15:42 92 Nasal Cannula 1.00 01/06/17 15:00 66 01/06/17 14:16 86 01/06/17 13:01 83 01/06/17 12:55 97.6 80 16 114/64 (81) 94 01/06/17 12:55 94 1.50 01/06/17 12:27 83 01/06/17 11:48 87 01/06/17 10:23 79 CBC/BMP: 01/07/17 0400 01/07/17 0400 Lab Results Laboratory Tests Test 01/07/17 04:00 White Blood Count 10.0 TH/MM3 Red Blood Count 2.89 MIL/MM3 Hemoglobin 9.2 GM/DL Hematocrit 28.0 % Mean Corpuscular Volume 97.1 FL Mean Corpuscular Hemoglobin 31.8 PG Mean Corpuscular Hemoglobin Concent 32.8 % Red Cell Distribution Width 19.1 % Platelet Count 354 TH/MM3 Mean Platelet Volume 6.7 FL Neutrophils (%) (Auto) 76.8 % Lymphocytes (%) (Auto) 8.2 % Monocytes (%) (Auto) 9.6 % Eosinophils (%) (Auto) 4.4 % Basophils (%) (Auto) 1.0 % Neutrophils # (Auto) 7.7 TH/MM3 Lymphocytes # (Auto) 0.8 TH/MM3 Monocytes # (Auto) 1.0 TH/MM3 Eosinophils # (Auto) 0.4 TH/MM3 Basophils # (Auto) 0.1 TH/MM3 CBC Comment DIFF FINAL Differential Comment Blood Urea Nitrogen 37 MG/DL Creatinine 8.76 MG/DL Random Glucose 97 MG/DL Total Protein 5.4 GM/DL Albumin 2.2 GM/DL Calcium Level 10.7 MG/DL Alkaline Phosphatase 81 U/L Aspartate Amino Transf (AST/SGOT) 7 U/L Alanine Aminotransferase (ALT/SGPT) 15 U/L Total Bilirubin 0.2 MG/DL Sodium Level 132 MEQ/L Potassium Level 4.5 MEQ/L Chloride Level 94 MEQ/L Carbon Dioxide Level 31.3 MEQ/L Anion Gap 7 MEQ/L Estimat Glomerular Filtration Rate 6 ML/MIN Physical Exam General General Appearance: No Acute Distress, Comfortable Eyes Eye Exam: Sclera White, Extraocular Movement Intact Throat Throat Exam: Oral Mucosa [place] & Moist, Oral Pharynx Normal Neck Neck Exam: Neck Supple, Trachea Midline Pulmonary Resp Exam: Clear Bilaterally, Decreased Bases Cardiology CV Exam: Regular, Normal Sinus Rhythm Gastrointestinal/Abdomen GI Exam: Soft, Non-Tender, Bowel Sounds Present Musculoskeletal MS Exam: Joints Intact Integumentary Skin Exam: Warm, Dry Extremeties Extremities Exam: Pitting Edema Neurologic Neuro Exam: Alert, Awake, Oriented, No Focal Deficits Psychiatric Psych Exam: Appropriate Responses VTE Prophylaxis VTE Prophylaxis Meds: Heparin PUD Prophylasis PUD Prophylaxis: Protonix Assessment/Plan Assessment/Plan ASSESSMENT/PLAN 1. This is a 71-year-old male who came to the ER diagnosed with shortness of breath, cough, congestion secondary to right-sided pneumonia. The patient is on Daptomycin, Levaquin. pulmonary input noted for further recommendation. 2. Chronic renal failure. Nephrology input noted. The patient needs dialysis Friday, and Friday. 3. High TSH. on 50 mcg of levothyroxine daily. 4. History of insomnia. Continue with temazepam 30 mg p.o. at bedtime. 5. History of constipation. Continue home medication. 6. History of for chronic renal failure. Continue home medication. The patient is on hemodialysis. 7. Leukocytosis most likely secondary to pneumonia..resolved. 8. Anemia secondary to chronic disease including renal failure. 9. Having septic right shoulder joint. infectious disease input noted for further recommendation of antibiotic. 10. Sepsis on admission. The patient is on antibiotic per ID Recommendation. 11. DVT prophylaxis. Heparin 5000 units subcutaneous twice a day. 12. GI prophylaxis, Protonix 40 mg p.o. daily. 13. Left pleural effusion cardiothoracic surgeon input noted s/p U/S guided thoracentesis. ok to dicharge home with home health care patient refused to go to rehab, f/u with pcp/ nephrology/ pulmonary 1 week. Discussed Condition with: Patient Jonn Fletcher MD Jan 07, 2017 09:32
[2017-01-07] MEDS ORDERED: CIPR250T2 PO (09:37)
--- NOTE | 2017-01-07 09:42 | HHI.FF ---
Face to Face Verification Diagnosis: (1) Leukocytosis (2) Septic arthritis of shoulder (3) Sepsis (4) Hx of discitis (5) Weakness (6) Chronic kidney disease (7) Osteomyelitis of lumbar spine Physical Therapy Order: Evaluate and Treat, Improve ambulation, Strength and gait training Occupational Therapy Order: Evaluate and Treat, Gross motor coordination Home Health Nursing Order: Medical education Oxygen administration education Medication education-adverse effect IV medication administration I have seen patient Roland Conrad on 01/07/17. My clinical findings support the need for the requested home health care services because: Ltd mobility - disease progression Limited ability to care for self High risk of falls Infection w/ risk of complications I certify that my clinical findings support that this patient is homebound because: Unsteady gait/balance Unsafe to leave home unassisted Jonn Fletcher MD Jan 07, 2017 09:42
[2017-01-07] MEDS ORDERED: LEVO.05 PO (09:51)
--- NOTE | 2017-01-07 11:03 | HHI.NPPN ---
Subjective History of Present Illness 71 year old with ESRD increased dyspnea Additional Remarks No acute complaints Review of Systems Respiratory Lungs: SOB Objective Data Data Vital Signs Date Time Temp Pulse Resp B/P (MAP) Pulse Ox O2 Delivery O2 Flow Rate FiO2 01/07/17 07:40 97.7 81 18 118/64 (82) 94 01/07/17 07:00 94 1.00 01/07/17 06:14 81 01/07/17 05:02 74 01/07/17 04:38 84 01/07/17 03:46 97.7 83 16 126/64 (84) 90 01/07/17 03:16 81 01/07/17 02:03 84 01/07/17 01:01 87 01/07/17 00:10 98.0 84 16 124/66 (85) 91 01/07/17 00:09 84 01/06/17 23:01 80 01/06/17 22:20 74 01/06/17 21:00 80 01/06/17 20:10 76 01/06/17 19:54 98.5 82 16 117/65 (82) 95 01/06/17 19:54 95 Nasal Cannula 1.00 01/06/17 19:54 77 01/06/17 19:29 93 Nasal Cannula 1.50 01/06/17 18:40 81 01/06/17 17:00 80 01/06/17 16:00 78 01/06/17 15:42 98.5 79 16 95/59 (71) 90 01/06/17 15:42 92 Nasal Cannula 1.00 01/06/17 15:00 66 01/06/17 14:16 86 01/06/17 13:01 83 01/06/17 12:55 97.6 80 16 114/64 (81) 94 01/06/17 12:55 94 1.50 01/06/17 12:27 83 01/06/17 11:48 87 -: 01/07/17 0400 01/07/17 0400 Physical Exam General Appearance: No Acute Distress, Comfortable Eyes Eye Exam: Sclera White, Extraocular Movement Intact Throat Throat Exam: Oral Mucosa [place] & Moist, Oral Pharynx Normal Neck Neck Exam: Neck Supple, Trachea Midline Pulmonary Resp Exam: Clear Bilaterally, Decreased Bases Cardiology CV Exam: Regular, Normal Sinus Rhythm Gastrointestinal/Abdomen GI Exam: Soft, Non-Tender, Bowel Sounds Present Musculoskeletal MS Exam: Joints Intact Integumentary Skin Exam: Warm, Dry Extremeties Extremities Exam: Pitting Edema Neurologic Neuro Exam: Alert, Awake, Oriented, No Focal Deficits Psychiatric Psych Exam: Appropriate Responses PUD Prophylasis PUD Prophylaxis: Protonix Assessment/Plan Problem List: (1) ESRD (end stage renal disease) on dialysis ICD Codes: N18.6 - End stage renal disease; Z99.2 - Dependence on renal dialysis Status: Chronic Plan: seen during HD Tolerating dialysis today, with 3L UF. Continue HD TTS Next HD (outpatient if discharged) Had thoracentesis Friday, feeling better. Volume status, electrolytes stable. T4 normal High calcium better post Pamidronate Previously added Vitamin D 3 supplements Echo 45% EF moderate , can be dc from Nephrology point of view (2) Pneumonia ICD Codes: J18.9 - Pneumonia Status: Acute Plan: on Daptomycin/cefepime/Zithromax - follow with ID. 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
--- NOTE | 2017-01-07 11:22 | HHI.FF ---
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 Coded Allergies: *MDRO Multi-Drug Resistant Organism (Verified Adverse Reaction, Unknown, ) MRSA PCR screen POSITIVE - 03/13/16 MRSA (blood)-10/29/16 Administer Medication Daptomycin Cubicin 960 mg IV q48H Stop Treatment: Jan 27, 2017 Additional Information Additional Medications Rifampin 300 mg po BID till Jan 27, 2017 Venous access: PICC Line Additional Instructions [x] Peripheral flush and dressing changes per protocol [x] Implanted port and central welder production line arc: * Implanted port: 10 ml Normal Saline followed by 5 ml Heparin 100 units/ml Heparin flush after each use and monthly to maintain. [] May leave port accessed during therapy. [] May leave peripheral site accessed for duration of therapy. [x] If patient has SOB or respiratory distress, check oxygen saturation. If less than 90% or clinical signs of respiratory distress, administer oxygen at 2 L/min. via nasal cannula and notify physician. [x] Anaphylaxis/Reaction orders: * Stop infusion. * Keep IV line open with saline flush. * Notify physician. * Monitor vital signs every 15 minutes until symptoms resolve. * Check Oxygen saturation; Oxygen at 2 L/min. via nasal cannula if less than 90% or clinical signs of respiratory distress. * Administer diphenhydramine (Benadryl) 25 mg IV STAT, (unless patient has received as pre-med). May repeat once, if necessary. * Solu-Cortef 250 mg IVP over 30-60 seconds, use 100 mg vials for each dissolution. * Epinephrine (1mg/1 ml) 0.3 mg subcutaneously or IVP now with any signs of respiratory distress. * Check with physician for new additional pre-med orders if patient is re- challenged or re-treated. [x] May remove PICC line when treatment complete, after confirming with Physician. [x] If the patient is admitted to the hospital, the ED, or transferred via [facility] , complete transfer form including medication reconciliation order sheet. Laboratory Tests Weekly Labs: CBC w/diff, Creatinine, LFT's (Hepatic function test) Additional Information Labs once a week - Friday or Friday, copy to Angela Wright MD Jan 07, 2017 11:22
[2017-01-07] MEDS: EPOETIN ALFA 10,000 UNITS/ML VIAL IV PRN (11:30)
[2017-01-07] MEDS: SODIUM CHLOR 0.9% 1000 ML INJ 1,000 ML IV PRN (11:30)
[2017-01-07] MEDS: GELATIN 12 MM/7 MM FOAM TOP PRN (11:30)
[2017-01-07] MEDS: VITAMIN B CMPLX/VITC/FOLIC AC CAP PO SCH (12:23)
[2017-01-07] MEDS: LINEZOLID 600 MG TAB PO SCH ×2 (12:25→19:27)
[2017-01-07] MEDS: AMIODARONE 200 MG TAB PO SCH ×2 (12:25→19:27)
[2017-01-07] MEDS: CHOLECALCIFEROL (VIT D3) 5000 UNIT CAP PO SCH (12:25)
[2017-01-07] MEDS: LEVOFLOXACIN 250 MG TAB PO SCH (12:26)
[2017-01-07] MEDS: DOCUSATE SODIUM 100 MG CAP PO SCH (12:26)
[2017-01-07] MEDS: RIFAMPIN 150 MG CAP PO SCH (12:26)
[2017-01-07] MEDS: SODIUM CHLORIDE 0.9% FLUSH 10 ML FLUSH IV FLUSH SCH ×2 (12:28→20:21)
[2017-01-07] MEDS: ASPIRIN 325 MG TAB PO SCH (12:29)
[2017-01-07] MEDS ORDERED: DAPTOMYCIN IV SCH (13:00)
[2017-01-07] MEDS ORDERED: SODIUM CHLORIDE 0.9% IV SCH (13:00)
--- NOTE | 2017-01-07 13:28 | RADRPT ---
EXAM DATE/TIME: 01/07/2017 13:05 [facility] COMPARISON: CHEST SINGLE AP, December 31, 2016, 22:23. INDICATIONS : Picc line placement. MEDICAL HISTORY : Myocardial infarction. Congestive heart failure. Hypertension. anemia, diabetes, hx of MRSA SURGICAL HISTORY : CABG. Left arm dialysis fistula ENCOUNTER: Initial ACUITY: 1 week PAIN SCORE: 0/10 LOCATION: Bilateral chest FINDINGS: Right PICC line with tip in the brachiocephalic/SVC junction. There is catheter redundancy in the axi lla suggesting resistance to catheter passage. Cardiac silhouette is enlarged. Redemonstration of dif fuse bilateral interstitial prominence and right lower lobe airspace disease. Remainder of the exam i s unchanged. CONCLUSION: 1. Right PICC line tip in the brachiocephalic SVC junction. 2. Stable right lower lobe consolidation superimposed on chronic interstitial changes. Kane Chapin MD on January 07, 2017 at 13:23 Board Certified Radiologist. This report was verified electronically.
[2017-01-07] MEDS: CINACALCET HYDROCHLORIDE 30 MG TAB PO SCH (17:50)
[2017-01-07] MEDS ORDERED: SODIUM CHLORIDE 0.9% FLUSH 10 ML FLUSH IV FLUSH PRN (19:45)
--- NOTE | 2017-01-07 19:51 | RADRPT ---
EXAM DATE/TIME: 01/07/2017 19:09 [facility] COMPARISON: CHEST SINGLE AP, January 07, 2017, 13:05. INDICATIONS : PICC line placement. MEDICAL HISTORY : Myocardial infarction. Congestive heart failure. Hypertension. anemia, SURGICAL HISTORY : CABG. ENCOUNTER: Subsequent ACUITY: 1 month PAIN SCORE: 0/10 LOCATION: Bilateral chest FINDINGS: Portable AP view of the chest demonstrates a normal-sized cardiac silhouette with calcification of th e aorta. Patient is post median sternotomy. Right upper extremity PICC is present and distal tip is i n the superior vena cava. It questionably has looped upon itself within the superior vena cava. There is stable pleural-parenchymal opacity at the right lung base. No pneumothorax is seen. CONCLUSION: 1. Right upper extremity PICC distal tip in the superior vena cava. It questionably is looped upon it self within the SVC. 2. Stable small right pleural effusion and airspace consolidation at the right lung base. Geovanni Glass MD on January 07, 2017 at 19:48 Board Certified Radiologist. This report was verified electronically.
[2017-01-07] MEDS: TEMAZEPAM 15 MG CAP PO PRN (21:51)
[2017-01-08] VITALS (12 sets, daily range): BP systolic 105–119; BP diastolic 60–64; PULSE 72–89; RESP 18; TEMP 97.4–98.4; O2SAT 92–93
[2017-01-08] MEDS: LEVOTHYROXINE SODIUM 50 MCG TAB PO SCH (06:00)
--- NOTE | 2017-01-08 08:30 | HHI.PR ---
Subjective History of Present Illness Patient feel better no acute issue. ok to discharge home today with home health care. Patient was not able to go home yesterday. Review of Systems Constitutional Constitutional: Fatigue, Weakness Pulmonary Respiratory: Coughing Vitals/Results Vital Signs Vital Signs Date Time Temp Pulse Resp B/P (MAP) Pulse Ox O2 Delivery O2 Flow Rate FiO2 01/08/17 07:32 98.4 88 18 105/64 (78) 92 01/08/17 06:18 80 01/08/17 05:14 72 01/08/17 04:45 82 01/08/17 03:20 97.4 85 18 119/60 (79) 93 01/08/17 03:13 85 01/08/17 02:09 85 01/08/17 01:49 89 01/08/17 00:13 80 01/07/17 23:20 98.4 77 16 105/55 (72) 92 01/07/17 23:20 88 01/07/17 22:15 88 01/07/17 21:51 96 Nasal Cannula 1.50 01/07/17 21:00 86 01/07/17 20:00 86 01/07/17 19:50 98.0 87 18 104/47 (66) 96 01/07/17 19:50 85 01/07/17 19:50 96 Nasal Cannula 1.50 01/07/17 18:00 84 01/07/17 17:00 88 01/07/17 16:00 92 01/07/17 15:30 98.0 93 17 104/62 (76) 92 01/07/17 15:00 88 01/07/17 14:00 90 01/07/17 13:50 88 18 96/50 (65) 92 01/07/17 13:00 92 01/07/17 12:00 92 01/07/17 11:00 84 01/07/17 10:00 86 01/07/17 09:00 78 CBC/BMP: 01/07/17 0400 01/07/17 0400 Physical Exam General General Appearance: No Acute Distress, Comfortable Eyes Eye Exam: Sclera White, Extraocular Movement Intact Throat Throat Exam: Oral Mucosa [place] & Moist, Oral Pharynx Normal Neck Neck Exam: Neck Supple, Trachea Midline Pulmonary Resp Exam: Clear Bilaterally, Decreased Bases Cardiology CV Exam: Regular, Normal Sinus Rhythm Gastrointestinal/Abdomen GI Exam: Soft, Non-Tender, Bowel Sounds Present Musculoskeletal MS Exam: Joints Intact Integumentary Skin Exam: Warm, Dry Extremeties Extremities Exam: Pitting Edema Neurologic Neuro Exam: Alert, Awake, Oriented, No Focal Deficits Psychiatric Psych Exam: Appropriate Responses VTE Prophylaxis VTE Prophylaxis Meds: Heparin PUD Prophylasis PUD Prophylaxis: Protonix Assessment/Plan Assessment/Plan ASSESSMENT/PLAN 1. This is a 71-year-old male who came to the ER diagnosed with shortness of breath, cough, congestion secondary to right-sided pneumonia. The patient is on Daptomycin, Levaquin. pulmonary input noted for further recommendation. 2. Chronic renal failure. Nephrology input noted. The patient needs dialysis Friday, and Friday. 3. High TSH. on 50 mcg of levothyroxine daily. 4. History of insomnia. Continue with temazepam 30 mg p.o. at bedtime. 5. History of constipation. Continue home medication. 6. History of for chronic renal failure. Continue home medication. The patient is on hemodialysis. 7. Leukocytosis most likely secondary to pneumonia..resolved. 8. Anemia secondary to chronic disease including renal failure. 9. Having septic right shoulder joint. infectious disease input noted for further recommendation of antibiotic. 10. Sepsis on admission. The patient is on antibiotic per ID Recommendation. 11. DVT prophylaxis. Heparin 5000 units subcutaneous twice a day. 12. GI prophylaxis, Protonix 40 mg p.o. daily. 13. Left pleural effusion cardiothoracic surgeon input noted s/p U/S guided thoracentesis. ok to dicharge home with home health care patient refused to go to rehab, f/u with pcp/ nephrology/ pulmonary 1 week. Discussed Condition with: Patient Jonn Fletcher MD Jan 08, 2017 08:30
[2017-01-08] MEDS ORDERED: SODIUM CHLORIDE 0.9% FLUSH 10 ML FLUSH IV FLUSH SCH (09:00)
--- NOTE | 2017-01-08 15:36 | MD ---
cc: JONN ROWE MD ADMISSION DATE: 01/01/2017 DISCHARGE DATE: 01/08/2017 Okay to discharge the patient home with home health care. The patient refused going to rehab. The risks, benefits and alternates explained to the patient including . The patient verbalized understanding and wants to go home with home health care. CONDITION AT THE TIME OF DISCHARGE Satisfactory ACTIVITY As tolerated. DIET Cardiac diet, renal diet. ALLERGIES NO KNOWN DRUG ALLERGIES. MEDICATIONS Include: 1. Cipro 250 mg twice a day for 7 days 2. Amiodarone 200 mg p.o. 12-hour 3. Aspirin 325 mg daily 4. B-complex one p.o. daily 5. Calcitriol 0.5 mg p.o. daily 6. Sensipar 60 mg p.o. daily 7. Daptomycin injection 950 mg IV q. 48-hour 8. Colace 100 mg p.o. daily 9. Percocet 5/325 p.o. q.6 h p.r.n. pain. 10. Rifampin 300 mg p.o. daily. 11. Velphoro 500 mg chewable p.o. t.i.d. 12. Temazepam 30 mg at bedtime p.r.n/insomnia 13. Levothyroxine 50 mcg p.o. daily The patient was advised to follow up with infectious disease doctor, primary care doctor, vocational services specialist and a chief operator reformer. ADMISSION DIAGNOSIS 1. Cough, congestion secondary to left-sided pneumonia and pleural effusion. The patient was given antibiotic daptomycin and Levaquin. Pulmonary has seen the patient and the patient also given cefepime. 2. Chronic renal failure. The patient is on hemodialysis every Friday, and Friday. 3. High TSH. The patient started on 50 mcg of levothyroxine. 4. History of insomnia. 5. History of constipation. 6. Leukocytosis most likely secondary to pneumonia which has resolved. 7. Anemia secondary to chronic disease including renal failure. 8. Septic arthritis right shoulder, infectious disease managing the antibiotic aspect. 9. Sepsis on admission. The patient was given antibiotic per ID Recommendations. 10. Left pleural effusion. Cardiothoracic surgeon has seen the Patient. The patient is status post ultrasound-guided thoracocentesis. HOSPITAL COURSE This is a 71-year-old male admitted with shortness of breath diagnosed with pneumonia. The patient was given antibiotic. The patient has a septic arthritis right shoulder. The patient was given antibiotic per ID recommendation. The patient has a high TSH. The patient was started on levothyroxine 50 mcg p.o. daily. The patient remained stable during the hospital stay. No acute event happened. The patient discharged in a satisfactory condition. The patient had anemia with hemoglobin 9.29, that is the baseline and also had a creatinine of 5.8, 6.47 and 8.7. The patient had a PT 11.7, INR 1.1, APTT 36.90. D-dimer was high at 1.85. The patient had a VQ scan done that shows a low probability for pulmonary embolism. The patient had a chest x-ray done that shows right base infiltrate slightly worse with interim superimposed on mostly chronic-appearing subpleural interstitial lung disease. Ultrasound of the chest done shows left pleural effusion. Another chest x-ray done shows no evidence of pneumothorax status post two thoracocenteses. Bilateral airspace disease remained with consolidation in the right lung base. The right costophrenic angle remains blunted. Scattered airspace disease greater in the right lower lobe which is improved. The patient had a blood cultures x two done negative for five days and pleural effusion showed no fungal elements seen and no growth. Further details in the medical record. Jonn Rowe MD EA/BRENT /9:44 AM /3:31 PM
--- NOTE | 2017-01-13 09:07 | RADRPT ---
EXAM DATE/TIME: 01/03/2017 15:58 [facility] COMPARISON: No previous studies available for comparison. INDICATIONS : Pleural effusion. MEDICAL HISTORY : Myocardial infarction. Congestive heart failure. Hypercholesterolemia. Anticoagulant therapy, asprin 325mg. Irregular heartbeat. Hypertension. Cough. Dyspnea. Umbilical hernia. Weight loss. Renal diseas e. Renal failure. Dialysis. Arthritis. Diabetes. Anemia. Joint pain. Fatigue. SURGICAL HISTORY : CABG Left arm dialysis fistula. Left wrist surgery. Rotator cuff repair. ENCOUNTER: Initial ACUITY: 2 months PAIN SCORE: 0/10 LOCATION: Left chest FLUID: Total volume of 1000 cc of clear, yellow fluid was removed. Fluid was sent to lab for ordered studies. TECHNIQUE: 1. Ultrasound guidance for thoracentesis. 2. Thoracentesis. The risks, benefits, and alternatives to ultrasound guided thoracentesis were explained to the patien t in lay simple terms, including the risk of bleeding and infection. Written and verbal informed con sent was obtained. Appropriate area for thoracentesis was marked under ultrasound guidance with the patient in the uprig ht position. Overlying skin was prepped and draped in the usual sterile fashion and with local anest hetic, a dermatotomy was made with an 11 blade scalpel. A 6 [place] thoracentesis catheter was placed in the pleural space and fluid was removed. Catheter was then removed and a sterile dressing applie d. There were no immediate complications. The patient tolerated the procedure well and the left the ultrasound suite in stable condition. Chest radiograph is to be obtained. CONCLUSION: Uncomplicated ultrasound guided thoracentesis. Fluid was sent to the lab for ordered studies. Adan Nicolas MD FACR on January 13, 2017 at 9:05 Board Certified Radiologist. This report was verified electronically.
== END 2017-01-08 09:41 | disposition home health service (06) | DRG 871 ==
LOC: NEPE 19:32 → NEDA 01-01 00:06 → NEDH 01-01 04:48 → HCIS 01-01 16:08
PROVIDERS: ADMIT Family Medicine; ATTEND Family Medicine
PROC: 5A1D60Z (ICD-10-PCS; 2017-01-02)
PROC: 0W9B3ZX Drainage of Left Pleural Cavity, Percutaneous Approach, Diagnostic (ICD-10-PCS; principal; 2017-01-03)
DX: A41.9 Sepsis, unspecified organism (principal); J18.9 Pneumonia, unspecified organism; I13.2 Hypertensive heart and chronic kidney disease with heart failure and with stage 5 chronic kidney disease, or end stage renal disease; J90 Pleural effusion, not elsewhere classified; N18.6 End stage renal disease; E11.22 Type 2 diabetes mellitus with diabetic chronic kidney disease; M00.9 Pyogenic arthritis, unspecified; E03.9 Hypothyroidism, unspecified; R09.02 Hypoxemia; G47.00 Insomnia, unspecified; D63.1 Anemia in chronic kidney disease; E78.00 Pure hypercholesterolemia, unspecified; I50.9 Heart failure, unspecified; I25.10 Atherosclerotic heart disease of native coronary artery without angina pectoris; I35.0 Nonrheumatic aortic (valve) stenosis; K21.9 Gastro-esophageal reflux disease without esophagitis; M46.46 Discitis, unspecified, lumbar region; M19.011 Primary osteoarthritis, right shoulder; R01.1 Cardiac murmur, unspecified; B95.62 Methicillin resistant Staphylococcus aureus infection as the cause of diseases classified elsewhere; Z86.74 Personal history of sudden cardiac arrest; Z79.4 Long term (current) use of insulin; Z79.82 Long term (current) use of aspirin; Z99.2 Dependence on renal dialysis; Z86.14 Personal history of Methicillin resistant Staphylococcus aureus infection; Z95.1 Presence of aortocoronary bypass graft
CPT/HCPCS: 32555; 36569; 36584; 71010; 71020; 76604; 76937; 78582; 80053; 82306; 82550; 82945; 83605; 83615; 83690; 83735; 83880; 83970; 84157; 84436; 84443; 84484; 85025; 85379; 85610; 85730; 86140; 87040; 87070; 87102; 87205; 87206; 88112; 88305; 89051; 90935; 93005; 93308; 96374; A9540; A9567; C1729; J0171; J0456; J0461; J0692; J0696; J0878; J1644; J2405; J2430; J7030; J7040; J7050; Q4081

== ENCOUNTER 2017-09-15 05:53 | Day surgery (SDC) | payer MEDICARE, OTHER ==
[~2017-09-15] VITALS: Ht 182.9 cm; Wt 108.4 kg
[2017-09-15] VITALS (13 sets, daily range): BP systolic 107–150; BP diastolic 58–86; PULSE 83–92; RESP 18–20; TEMP 97.6–98.6; O2SAT 94–97
[~2017-09-15 05:53] MED LIST changes: +ASPI-183 PO; -ASPI325T PO; +CALC0.5C PO; -CALC0.5C6 PO; +CIPR250T2 PO; -COLA100C PO; +COLA100C5 PO; +LEVO.05 PO
[2017-09-15] MEDS ORDERED: CHLORHEXIDINE GLUCONATE 2 % 1 PACK (2 CLOTHS) TOPICAL PRN (06:30)
[2017-09-15] MEDS ORDERED: POVIDONE IODINE 5% (ANTISEPSIS KIT) 4 APPLICATIONS EACH NARE PRN (06:30)
[2017-09-15] MEDS ORDERED: LACTATED RINGER'S 1000 ML IV PRN (06:30)
[2017-09-15] MEDS ORDERED: LORazepam 1 MG TAB SL SCH (06:30)
[2017-09-15] MEDS ORDERED: METOPROLOL TARTRATE 25 MG TAB PO PRN (06:30)
[2017-09-15] MEDS ORDERED: SODIUM CHLORID 0.9% 500 ML IV PRN (06:30)
[2017-09-15] MEDS ORDERED: CARD120C4 PO (06:43)
[2017-09-15] MEDS ORDERED: APIX5TAB PO (06:43)
[2017-09-15] MEDS ORDERED: CO Q100C9 (06:43)
[2017-09-15] MEDS ORDERED: OMEGCAP PO (06:43)
[2017-09-15] MEDS ORDERED: CARD240C6 PO (06:43)
[2017-09-15 07:06] LABS: AUTOMATED NEUTROPHIL # 4.5 TH/MM3 (1.8-7.7); BASOPHIL # 0.1 TH/MM3 (0-0.2); EOSINOPHIL # 0.2 TH/MM3 (0-0.4); EOSINOPHIL % 2.8 % (0.0-4.0); HEMATOCRIT 35.9 % (39.0-51.0); LYMPH % 15.9 % (9.0-44.0); MEAN CELL VOLUME 96.8 FL (80.0-100.0); MEAN CORPUSCULAR HEMOGLOBIN 32.4 PG (27.0-34.0); MEAN CORPUSCULAR HGB CONC 33.5 % (32.0-36.0); MEAN PLATELET VOLUME 6.9 FL (7.0-11.0); MONOCYTE # 0.7 TH/MM3 (0-0.9); NEUT % 69.3 % (16.0-70.0); PLATELET COUNT 241 TH/MM3 (150-450); RED BLOOD COUNT 3.72 MIL/MM3 (4.50-5.90); RED CELL DISTRIBUTION WIDTH 14.3 % (11.6-17.2); WHITE BLOOD COUNT 6.5 TH/MM3 (4.0-11.0)
[2017-09-15 07:07] LABS: INTERNATIONAL NORMALIZED RATIO 1.1 RATIO
[2017-09-15] MEDS ORDERED: HEPARIN SODIUM - IV 10,000 UNITS/10 ML VIAL ONE ×2 (07:13→08:37)
[2017-09-15] MEDS ORDERED: HEPARIN-D5W 25,000 U/250 ML 250 ML ONE (07:13)
[2017-09-15] MEDS ORDERED: PROTAMINE SULFATE 50 MG/5 ML VIAL ONE (07:13)
[2017-09-15] MEDS: SODIUM CHLORID 0.9% 500 ML INJ 500 ML IV SCH ×2 (07:15→23:10)
[2017-09-15 07:20] LABS: BICARBONATE 27.2 MEQ/L (21.0-32.0); CALCIUM 8.4 MG/DL (8.5-10.1); CREATININE 7.45 MG/DL (0.60-1.30)
[2017-09-15] MEDS ORDERED: LIDOCAINE HCL 1% PF 30 ML VIAL ONE (07:31)
[2017-09-15] MEDS ORDERED: LORazepam 2 MG/ML VIAL IV PUSH PRN (09:45)
[2017-09-15] MEDS ORDERED: ATROPINE SULFATE 1 MG/ML VIAL IV PUSH PRN (09:45)
[2017-09-15] MEDS ORDERED: LIDOCAINE HCL 1% 50 ML VIAL INFIL PRN (09:45)
--- NOTE | 2017-09-15 09:55 | PD.CARD ---
Atrial Fibrillation Ablation PROCEDURE DATE: Sep 15, 2017 PROCEDURES PERFORMED: 1. Electrophysiology study on Isuprel infusion 2. CS cannulation 3. 3-D mapping 4. Transseptal approach 5. Right and left heart catheterization 6. Intracardiac echo 7. Radiofrequency ablation of atrial fibrillation 8. Pulmonary vein isolation 9. Posterior wall ablation 10. Mitral line creation 10. Anterior wall ablation INDICATIONS FOR THE PROCEDURE Mr. Conrad is a 72-year-old male with atrial fibrillation, symptomatic , on anticoagulation referred for electrophysiology study and ablation. The risks, the nature and the benefits of the procedure were clearly stated to him. The risks include pneumothorax, cardiac perforation, stroke, need for open heart surgery and even . The patient understood and agreed to proceed. DESCRIPTION OF THE PROCEDURE IN DETAIL As written informed consent was obtained prior to esophageal echocardiogram, the patient was kept on the table where he was prepped and draped in the usual sterile fashion. Conscious sedation was initiated and maintained throughout the procedure by the anesthesiologist. Once sedation was verified, the right and left inguinal areas were anesthetized with 2% Xylocaine. Using modified Seldinger technique, the left femoral vein was cannulated on three occasions, three guidewires were advanced. Over the wire a 6, 7 and a 10-[place] were advanced. Then the left femoral artery was cannulated on one occasion, one guidewire was advanced. Over the wire a 4-[place] was advanced. Then the right femoral vein was cannulated on one occasion, one guidewire was advanced. Over the wire a 8-[place] was advanced. Then under fluoroscopic guidance through the 6 and 7-[place], two 5-[place] Patti curved quadripolar electrophysiology catheters were advanced and placed around the His as well as coronary sinus. Basic interval was measured. The patient was in sinus rhythm. Through the 10-[place], a Cordis Worrell AcuNav intracardiac echo catheter was advanced and placed at the right atrium. Multiple view was obtained. There is pericardial effusion, pulmonary vein was seen, atrial septal was visualized. Then the 8-[place] in the right femoral vein was exchanged for Agilis transseptal sheath that was placed all the way to the superior vena cava. Through the sheath a Kirstin needle was advanced, then the sheath, the dilator and the needle were progressed until foci engaged. Once engaged, the needle was advanced. RF was delivered for 2 seconds. I was able to cross into the left atrium. Once the needle crossed, the dilator was advanced. Once the dilator crossed, the sheath was advanced. Once the sheath crossed, the dilator and the needle were removed. At this point I did flood the system and fluid movement was seen in the left atrium the indicates the sheath is in good position. The patient already received 10,000 units of heparin. The goal is to keep an ACT around 350 during ablation. Then through the sheath a [employer] 20 pulse circumferential catheter was advanced. Using [employer] endocardial solution mapping system, a two-dimensional configuration of the left atrium was obtained. Points were taken at the left superior and inferior veins, right superior and inferior veins, mitral valve, and appendages. Then through the sheath a [employer]. Kiko TactiCath 65cm 3.5mm irrigated tipped mapping and radiofrequency ablation catheter was advanced. Esophageal probe was placed temperature monitoring during ablation. When it increased to 0.5 degrees Celsius above baseline, I moved to a different area of the atrium. First I did isolate the left superior and inferior vein. I did make a [place] around the veins. Posterior was ablated. A mitral line was created. Then the right superior and inferior veins were isolated. I did remap the atrium. I did advance the circumferential catheter again into the vein. There was no signal into the vein, pacing from the vein showed no conduction to the atrium. Isuprel infusion was initiated at 5 mcg for over 10 minutes (patient has renal failure on HD). No tachyarrhythmia was induced, post Isuprel no tachyarrhythmia was induced. At that point the procedure was complete. All catheters were removed, atrial septal sheath was exchanged for 9-[place]ema[place] , intracardiac echo showed no pericardial effusion. There is still good flow in the pulmonary vein. The patient is going to be transferred to the recovery room. No incident report. The patient tolerated the procedure. Blood loss was minimal. FINDINGS 1. Electrocardiogram: At baseline the patient was in atrial fibrillation, post procedure the patient was in sinus rhythm. 2. Basic interval: Base cycle length was around 850. AH at 126 and HV at 40 milliseconds. 3. Tachyarrhythmia: Atrial fibrillation was mapped and ablated. The ablation was successful. CONCLUSION Successful electrophysiology study, mapping, radiofrequency ablation of atrial fibrillation, pulmonary vein isolation, posterior ablation, mitral line creation. COMMENTS AND RECOMMENDATIONS The patient is going to be transferred to the telemetry unit. Will be observed and when stable can be discharged home. Rocco Acosta MD Sep 15, 2017 09:55
[2017-09-15] MEDS ORDERED: BACITRACIN OINT 0.9 GM PKT TOP ONE (10:00)
--- NOTE | 2017-09-15 10:15 | CATHPROC ---
[employer] HIS Report Study Information Study Number Admission Scheduled Start Study Start [id number] Sep 15 2017 5:53AM 09/15/2017 Sep 15 2017 7:04AM [place] Service Electrophysiology Study Admit Source Facility Department Other [facility] - Consulting Networking Engineer Physician and Clinical Staff Initial Rocco Nix Soldering Machine Setter Fernanda Timmons,RT(R) TECH2 Soldering Machine Setter Nayeli Parada,RN Soldering Machine Setter Carlota Mares,BILLY Other Anesthesia, BAIL ATTACHER Recorder Christina Morales BSN Scrub Sharlene Knight,OB/GYN DOCTOR TECH2 Procedures Performed Procedure Location (Site) Vessel Name Ablation Procedure ICE CATHETER INSERT RA Atruim Equipment Time Spray Dyer Description Size Mfg Part Number Used/Scraped NEEDLE, TRANSSEPTAL NRG 98 [id number] 07:22 [facility] Used C1 *[id number] [employer]/ EP [id number] 07:22 KIT, TRANSDUCER / AFIB Used PACER *[id number] CATHETER, TACTICATH ABLAT BUNDLE 07:22 [facility] Used 65 BUNDLE *[id number] BUNDLE [id number] CATHETER, FR7 OPTIMA SPIRAL 07:22 [facility] FR7 *[id number]- Used BUNDLE BUNDLE [id number] 07:22 [facility] CATHETER, JSN, QUAD BUNDLE FR 5 *[id number]- Used BUNDLE [id number] 07:22 [facility] CATHETER, JSN, QUAD BUNDLE FR 5 *[id number]- Used BUNDLE [id number] SET, COOL POINT TUBING 07:22 [facility] *[id number]- Used BUNDLE BUNDLE SHEATH, FR8.5 STEERABLE SM 07:22 [facility] 71CM [id number] Used 71CM BUNDLE [id number] 09:39 [employer] MEDICAL VASCADE, FR5 CLOSURE SYSTEM FR 5 Used *[id number] 09:37 [employer] VASCADE, FR6 CLOSURE SYSTEM FR 6\\7 Used *[id number] 09:38 [employer] VASCADE, FR6 CLOSURE SYSTEM FR 6\\7 Used *[id number] 09:39 [employer]ICAL VASCADE, FR6 CLOSURE SYSTEM FR 6\\7 Used *[id number] 09:39 [employer]ICAL VASCADE, FR6 CLOSURE SYSTEM FR 6\\7 Used *[id number] COVER, TRANSDUCER CABLE [id number] 07:22 [employer] Used ACUNAV *[id number] 07:22 CORDIS/PACER SHEATH, FR10 RANJITH 11CM FR 10 Used *[id number] 07:22 CORDIS/PACER SHEATH, FR9 RANJITH 11CM FR 9 [id number] Used [id number] 07:22 [employer] PACK, CCL CUSTOM * Used *[id number] 07:22 MEDLINE PACER AQUINO, LIMB * 2530 *[id number] Used [id number] 07:22 [employer] SHEATH, FR4.5 PRELUDE 11CM FR 4.5 Used [id number] 09:36 [employer] SHEATH, FR5.5 PRELUDE 11CM FR 5 [id number] Used [id number] 07:22 NAMIC TUBING, HIGH PRESSURE 48" 48" Used *[id number] 07:22 NAMIC TUBING, HIGH PRESSURE 48" 48" Used *[id number] 07:22 [place] [employer],WARM AIR CCL * Used *[id number] 07:22 [facility] MEDICAL ELECTRODE KIT, ARABELLA X SURFACE * Used *[id number] 07:22 [facility] SHEATH, EPS, FR6 FAST CATH FR 6 Used *[id number] 07:22 [facility] SHEATH, EPS, FR7 FAST CATH FR 7 [id number] Used [id number] 07:22 [facility] SHEATH, EPS, FR8 FAST CATH FR 8 Used *[id number] CATHETER, ACUNAV FR10 ICE [id number] 08:25 ROSALIO FR 10 Used (ROSALIO) *[id number] [facility] PAD, ELECTROSURGICAL 07:22 * [id number] *[id number] Used SURGICAL GROUNDING (BLUE) History: Allergies Allergy Reaction *MDRO Multi-Drug Resistant Organism History: Risk Factors Hypertension Dyslipidemia Yes Yes Prior CABG Yes Diabetes Yes Labs Hgb (g/dl) Hct (%) RBC (MIL/MM3) WBC (l/cumm) Platelets (thousands) 11.60-17.00 35.00-51.00 4.00-5.90 4.00-11.00 150.00-450.00 12.0 35 3.7 6.5 241 Glucose (mg/dl) BUN (mg/dl) Creatinine (mg/dl) BUN:Creatinine (1:x) 74.00-106.00 7.00-18.00 0.50-1.30 10.00-20.00 111 44 7.5 5.9 Na (meq/l) K (meq/l) 136.00-145.00 3.50-5.10 136 4.9 INR (PTT:PT) 0.90-1.10 1.1 Medication Medication Total Dose (Bolus/Oral) Medication Total Dosage/Unit 1% XYLOCAINE 30 mL HEPARIN 43039 units PROTAMINE 40 mg Medications (Bolus/Oral) Medication Time Given Dosage/Unit Administered By Reason 1% XYLOCAINE 09/15/2017 8:17:29 AM 20 mL Rocco Acosta 20 mL 1% XYLOCAINE given in lab by Rocco Acosta in Left Groin via Subcutaneous. 1% XYLOCAINE 09/15/2017 8:20:36 AM 10 mL Rocco Acosta 10 mL 1% XYLOCAINE given in lab by Rocco Acosta in Right Groin via Subcutaneous. HEPARIN 09/15/2017 8:26:36 AM 17225 units Anesthesia, BAIL ATTACHER 91379 units HEPARIN given in lab by Anesthesia, BAIL ATTACHER via Peripheral IV. Ordered by Rocco Acosta. HEPARIN 09/15/2017 8:38:06 AM 3000 units Anesthesia, BAIL ATTACHER 3000 units HEPARIN given in lab by Anesthesia, BAIL ATTACHER via Peripheral IV. Ordered by Rocco Acosta. HEPARIN 09/15/2017 8:53:20 AM 2000 units Anesthesia, BAIL ATTACHER 2000 units HEPARIN given in lab by Anesthesia, BAIL ATTACHER via Peripheral IV. Ordered by Rocco Acosta. HEPARIN 09/15/2017 9:12:56 AM 3000 units Anesthesia, BAIL ATTACHER 3000 units HEPARIN given in lab by Anesthesia, BAIL ATTACHER via Peripheral IV. Ordered by Rocco Acosta. PROTAMINE 09/15/2017 9:36:50 AM 40 mg Anesthesia, BAIL ATTACHER 40 mg PROTAMINE given in lab by Anesthesia, BAIL ATTACHER. Ordered by Rocco Acosta. Medication (Drip) Medication Time Given Dosage/Unit Concentration/Unit Diluent (ml) Solution HEPARIN DRIP 09/15/2017 8:38:04 AM 1000 units/hr 14898 units 250 D5W 1000 units/hr HEPARIN DRIP given in lab by Anesthesia, BAIL ATTACHER via Peripheral IV. Pump/Drip Flow = 10 ml /hr using [place] [address] units in 250 ml. Ordered by Rocco Acosta. ISUPREL 09/15/2017 9:20:26 AM 5 mcg/min 1 mg 250 NaCl .9 5 mcg/min ISUPREL given in lab by Anesthesia, BAIL ATTACHER via Peripheral IV. Pump/Drip Flow = 75 ml/hr using NaCl .9 with a concentration of 1 mg in 250 ml. Ordered by Rocco Acosta. ISUPREL DRIP STOPPED 09/15/2017 9:29:44 AM 0 units/hr 0 0 units/hr ISUPREL DRIP STOPPED given in lab by Anesthesia, BAIL ATTACHER. Pump/Drip Flow = 0 ml/hr using [Leticia ution Name]. Ordered by Rocco Acosta. IV Solutions 09/15/2017 7:25:15 AM 50 mL (IV) NaCl .9 IV Solutions given in lab by Anesthesia, BAIL ATTACHER in Right Antecubital via Peripheral IV. Pump/Drip Flow using NaCl .9. Ordered by Rocco Acosta. Reason: As per physicians verbal order. Initial Case Assessment Cardiovascular HR Rhythm NIBP Chest Pain 88 sr 172/70 0 Edema Present Skin color Skin None Normal Warm Dry Neurological State Oriented to time-place- Alert Moves all extremities person Respiration - General Respiration Rate SpO2 (%) (B/min) 16 96 Final Case Assessment Cardiovascular HR Rhythm NIBP Chest Pain 97 sr 145/65 0 Edema Present Skin color Skin None Normal Warm Dry Neurological State Oriented to time-place- Drowsy Moves all extremities person Respiration - General Respiration Rate SpO2 (%) O2 (lpm) (B/min) 16 93 2 Chronological Log Time Study Chronological Log 7:20:40 Patient arrived via Bed. 7:20:41 Patient Name, D.O.B, / Armband Verified By R.N. 7:20:41 Consent signed by the physician and the patient and verified by the Consulting Networking Engineer staff. 7:20:42 Pre-op and post- op instructions given; patient acknowledges understanding of instructions . 7:20:43 Verbal Stimulation=2 Physical Stimulation=2 Airway=2 Respiration=2 TOTAL=8. (0=absent, 1=lopez ited, 2=present) 7:23:34 Patient has been NPO for More than 6Hrs. 7:23:34 Skin Breakdown- 7:23:35 Patient Warmer Placed on the Table. 7:23:36 Disposable Defibrillator Pads Placed On Patient. 7:23:38 Alden Prominences Protected 7:23:38 A # 20 IV was noted in the Antecubital (right). Grade = 0 0.9ns kvo 7:24:02 History and physical on the chart. IV Solutions given in lab by Anesthesia, BAIL ATTACHER in Right Antecubital via Peripheral IV. Pump/Drip Flow using NaCl .9. 7:25:15 Ordered by Rocco Acosta. Reason: As per physicians verbal order. 7:25:52 Table restraints applied according to hospital policy 7:27:05 Anesthesia at bedside. Assumes care of patient. Blake Assessment: Initial Case, HR=88 BPM, Rhythm=sr, SGOS=454/70 mmhg, Chest Pain=0, Edema=None, [place] r=Normal, Skin = Warm, Dry 7:39:03 Neurological: State=Alert, Ox3, DAVID Respiration: Resp=16 B/min, SpO2=96 % 7:52:32 Anesthesiologist at bedside; patient intubated 7:57:00 Bilateral groins prepped with 2% chlorhexidine, and draped after a 3 minute waiting time. 8:10:39 MD arrived. Time Out. Correct patient, procedure, procedure equipment, site and side verified with physician present. Time 8:13:07 concurred by MD, individual staff and BAIL ATTACHER. Time Out #2 - Consents verified, patient in correct position, all results are labled and display ed, safety precautions 8:13:22 taken, antibiotics administered. Time out concurred by MD, individual staff and BAIL ATTACHER in procedur e 8:13:39 Case Start 8:14:04 RAY in progress 8:17:00 Ray complete 8:17:29 20 mL 1% XYLOCAINE given in lab by Rocco Acosta in Left Groin via Subcutaneous. 8:18:01 Vascular access was obtained in the Fem Vein (left). 8:18:03 Vascular access was obtained in the Fem Vein (left). 8:18:08 Vascular access was obtained in the Fem Vein (left). 8:18:14 Vascular access was obtained in the Fem Art (left). A SHEATH, FR4.5 PRELUDE 11CM FR 4.5 was advanced into the Fem Art (left) using the Percutaneous technique. 8:18:28 0.9ns pressure bag connected 8:19:05 A SHEATH, EPS, FR6 FAST CATH FR 6 was advanced into the Fem Vein (left) using the Percutaneo us technique. 8:19:28 A SHEATH, EPS, FR7 FAST CATH FR 7 was advanced into the Fem Vein (left) using the Percutaneo us technique. 8:19:36 A SHEATH, FR10 RANJITH 11CM FR 10 was advanced into the Fem Vein (left) using the Percutaneou s technique. 8:20:36 10 mL 1% XYLOCAINE given in lab by Rocco Acosta in Right Groin via Subcutaneous. 8:20:58 Vascular access was obtained in the Fem Vein (right). 8:21:09 A SHEATH, EPS, FR8 FAST CATH FR 8 was advanced into the Fem Vein (right) using the Percutane ous technique. A CATHETER, JSN, QUAD BUNDLE FR 5 was advanced vis Fem Vein (left) and placed in the CS. Placeme nt was visually 8:22:34 confirmed under fluoroscopy. A CATHETER, JSN, QUAD BUNDLE FR 5 was advanced vis Fem Vein (left) and placed in the HIS. Placem ent was 8:22:54 visually confirmed under fluoroscopy. 8:24:37 CATHETER, ACUNAV FR10 ICE (ROSALIO) FR 10 Was Postioned in the RA A SHEATH, FR8.5 STEERABLE SM 71CM BUNDLE 71CM was exchanged in the Fem Vein (right). This was ne cessary in 8:25:45 order for catheter support. 8:26:36 39911 units HEPARIN given in lab by Anesthesia, BAIL ATTACHER via Peripheral IV. Ordered by Oseas Acosta. 8:26:59 Collins in 8:29:31 A eps was advanced to the right atrium and passed through the septal wall to the left atrium . 8:29:43 Collins out A CATHETER, FR7 OPTIMA SPIRAL BUNDLE FR7 was advanced vis Fem Vein (right) and placed in the LA. Placement 8:30:22 was visually confirmed under fluoroscopy. 8:31:33 Activated Clotting Time Drawn 8:31:54 Mapping in progress 8:36:04 Mapping complete; catheter removed A CATHETER, TACTICATH ABLAT 65 BUNDLE was advanced vis Fem Vein (right) and placed in the LA. Pl acement was 8:36:20 visually confirmed under fluoroscopy. 8:36:49 ACT (Normal Range 90-180) = 276 1000 units/hr HEPARIN DRIP given in lab by Anesthesia, BAIL ATTACHER via Peripheral IV. Pump/Drip Flow = 10 ml/hr using 8:38:04 [place] [address] units in 250 ml. Ordered by Hanscy. Dave 8:38:06 3000 units HEPARIN given in lab by Anesthesia, BAIL ATTACHER via Peripheral IV. Ordered by Moises Acosta 8:42:52 ablation in progress 8:45:06 Activated Clotting Time Drawn 8:53:07 ACT (Normal Range 90-180) = 322 8:53:20 2000 units HEPARIN given in lab by Anesthesia, BAIL ATTACHER via Peripheral IV. Ordered by Moises Acosta 9:07:46 Activated Clotting Time Drawn 9:09:18 Ablation continues 9:12:37 ACT (Normal Range 90-180) = 320 9:12:56 3000 units HEPARIN given in lab by Anesthesia, BAIL ATTACHER via Peripheral IV. Ordered by Moises Acosta 9:15:51 ablation catheter removed A CATHETER, FR7 OPTIMA SPIRAL BUNDLE FR7 was advanced vis Fem Vein (right) and placed in the LA. Placement 9:16:01 was visually confirmed under fluoroscopy. 9:18:39 mapping catheter out A CATHETER, TACTICATH ABLAT 65 BUNDLE was advanced vis Fem Vein (right) and placed in the LA. Pl acement was 9:18:49 visually confirmed under fluoroscopy. 5 mcg/min ISUPREL given in lab by Anesthesia, BAIL ATTACHER via Peripheral IV. Pump/Drip Flow = 75 ml/hr using NaCl .9 with 9:20:26 a concentration of 1 mg in 250 ml. Ordered by Hanscy. Dave 9:21:10 EP study in progress 9:23:56 Activated Clotting Time Drawn 9:29:29 ACT (Normal Range 90-180) = 352 0 units/hr ISUPREL DRIP STOPPED given in lab by Anesthesia, BAIL ATTACHER. Pump/Drip Flow = 0 ml/hr using [Solution Name]. 9:29:44 Ordered by Hanscy. Dave 9:34:53 Ablation catheter removed 9:34:56 All catheters removed A SHEATH, FR9 RANJITH 11CM FR 9 was exchanged in the Fem Vein (right). This was necessary in orde r to minimize 9:35:08 site leakage. A SHEATH, FR5.5 PRELUDE 11CM FR 5 was exchanged in the Fem Art (right). This was necessary in or aristeo to achieve 9:35:33 vascular hemostasis. 9:36:50 40 mg PROTAMINE given in lab by Anesthesia, BAIL ATTACHER. Ordered by Rocco Acosta. 9:36:59 VASCADE, FR6 CLOSURE SYSTEM FR 6\\7 placement in the Fem Vein (right) 9:37:27 VASCADE, FR6 CLOSURE SYSTEM FR 6\\7 placement in the Fem Vein (left) 9:38:31 VASCADE, FR6 CLOSURE SYSTEM FR 6\\7 placement in the Fem Vein (left) 9:38:55 VASCADE, FR5 CLOSURE SYSTEM FR 5 placement in the Fem Art (left) 9:39:12 Pressure held to all sites 9:39:30 10 fr Sheath removed by Dr. Beck; pressure applied to access site by Kavita. 9:41:37 Case End 9:43:04 Ablation procedure performed: AFIB. 9:43:08 EP Procedure was performed. 9:43:41 No case complications noted. 9:43:42 Cine recording checked. 9:43:45 PACU called. Spoke to Fernanda 9:43:53 Bedside Report will be given. 9:51:01 Activated Clotting Time Drawn 9:54:29 ACT (Normal Range 90-180) = 161 Assessment: Final Case, HR=97 BPM, Rhythm=sr, ETBY=900/65 mmhg, Chest Pain=0, Edema=None, [place] r=Normal, Skin = Warm, Dry 9:55:00 Neurological: State=Drowsy, Ox3, DAVID Respiration: Resp=16 B/min, SpO2=93 %, O2=2 lpm 9:55:42 Sterile dressing applied to site 10:17:55 Patient moved to stretcher 10:18:47 Defibrillator and ground pads removed. Skin intact. End Study - Contrast Media Used In Study Contrast Total Opened (mL) Total Used (mL) Total Wasted (mL) Omnipaque 0 0 0 End Study - Maximum Contrast Load Max Contrast Load (mL) 72.3 End Study - Radiation Exposure Fluoro Time (minutes) 1.1 End Study - Sheaths Sheaths Pulled By Sheath Hold Time (min) Rocco Acosta 15 End Study - Patient Disposition Complications Transferred To Interventional Outcome No Telemetry Bed successful
[2017-09-15] MEDS ORDERED: SODIUM CHLOR 0.9% 250 ML INJ 250 ML IV PRN (11:00)
[2017-09-15] MEDS ORDERED: ONDANSETRON HCL 4 MG/2 ML VIAL IV PUSH PRN (11:00)
[2017-09-15] MEDS ORDERED: TEMAZEPAM 15 MG CAP PO PRN (11:00)
[2017-09-15] MEDS ORDERED: oxyCODONE/ACETAMINOPHEN 5 MG/325 MG TAB PO PRN (11:00)
[2017-09-15] MEDS ORDERED: DO NOT ADM ANY ANTICOAGULANT DRUGS PRN (11:30)
[2017-09-15] MEDS ORDERED: ROCURONIUM INJ 50 MG/5 ML SYRINGE IV PUSH ONE (12:00)
[2017-09-15] MEDS ORDERED: ePHEDrine/NS 25 MG/5 ML SYRINGE IV ONE (12:00)
[2017-09-15] MEDS ORDERED: GLYCOPYRROLATE 1 MG/5 ML SYRINGE IV PUSH ONE (12:00)
[2017-09-15] MEDS ORDERED: NEOSTIGMINE 5 MG/5 ML SYRINGE IV PUSH ONE (12:00)
[2017-09-15] MEDS ORDERED: PHENYLEPH/NS 1000 MCG/10 ML SYR IV ONE (12:00)
[2017-09-15] MEDS ORDERED: ONDANSETRON HCL 4 MG/2 ML VIAL IV ONE (12:00)
[2017-09-15] MEDS ORDERED: PROPOFOL 200 MG/20 ML AMP IV ONE (12:00)
[2017-09-15] MEDS ORDERED: DEXAMETHASONE SOD PHOS 4 MG/ML VIAL IV ONE (12:00)
[2017-09-15] MEDS ORDERED: LIDOCAINE HCL 1% PF 5 ML SYRINGE OTHER ONE (12:00)
[2017-09-15] MEDS ORDERED: SUCROFERRIC OXYHYDROXIDE 500 MG PO SCH (13:30)
[2017-09-15] MEDS ORDERED: CINACALCET HYDROCHLORIDE 30 MG TAB PO SCH (16:00)
--- NOTE | 2017-09-15 17:51 | RADRPT ---
EXAM DATE/TIME: 09/15/2017 16:36 [place] COMPARISON: No previous studies available for comparison. INDICATIONS : Hematoma. MEDICAL HISTORY : Hypertension. Myocardial infarction. Hypercholesterolemia. Atrial fibrillation. Congestive heart fail ure. Anticoagulant therapy, asprin 325mg. Dyspnea. Renal disease. Dialysis. Arthritis. Diabetes. SURGICAL HISTORY : CABG. Left arm AV fistula. Umbilical hernia repair. Right rotator cuff surgery. Left wrist surger y. ENCOUNTER: Initial ACUITY: 1 day PAIN SCORE: 7/10 LOCATION: Left leg. AREA EVALUATED: Left groin. FINDINGS: No evidence for pseudoaneurysm as questioned. There is a large hematoma medial to the femoral arterie s measuring 15.1 x 7.2 x 1.2 cm. Visualized left common femoral artery, and proximal SFA and profunda are patent. CONCLUSION: 1. No femoral pseudoaneurysm as questioned. 2. Large groin hematoma measuring 15.1 x 7.2 x 1.2 cm. Kane Chapin MD on September 15, 2017 at 17:48 Board Certified Radiologist. This report was verified electronically.
--- NOTE | 2017-09-15 20:33 | EKG ---
Date Performed: 09/15/2017 Time Performed: 10:50:27 PTAGE: 72 years EKG: Sinus rhythm WITH FIRST DEGREE AV BLOCK MODERATE INTRAVENTRICULAR CONDUCTION DELAY ABNORMAL QRS-T ANGLE ABNORMAL ECG PREVIOUS TRACING : 09/15/2017 06.48 Since the previous tracing, no significant change noted DOCTOR: Emery Mack Interpretating Date/Time 09/15/2017 20:32:17
--- NOTE | 2017-09-15 20:51 | EKG ---
Date Performed: 09/15/2017 Time Performed: 06:48:54 PTAGE: 72 years EKG: Sinus rhythm . Lateral ST-T changes may be due to myocardial ischemia Abnormal ECG PREVIOUS TRACING : 12/31/2016 22.04 Since the previous tracing, no significant change noted DOCTOR: Emery Mack Interpretating Date/Time 09/15/2017 20:51:01
[2017-09-15] MEDS: APIXABAN 5 MG TABLET PO SCH (22:12)
[2017-09-15] MEDS: oxyCODONE/ACETAMINOPHEN 5 MG/325 MG TAB PO PRN (22:12)
[2017-09-16] VITALS (12 sets, daily range): BP systolic 102–110; BP diastolic 60–63; PULSE 86–105; RESP 14–18; TEMP 97.8–98.6; O2SAT 92–95
[2017-09-16] MEDS: oxyCODONE/ACETAMINOPHEN 5 MG/325 MG TAB PO PRN (02:42)
[2017-09-16 05:15] LABS: INTERNATIONAL NORMALIZED RATIO 1.1 RATIO; PROTHROMBIN TIME - PATIENT 10.8 SEC (9.8-11.6)
--- NOTE | 2017-09-16 07:24 | EKG ---
Date Performed: 09/16/2017 Time Performed: 06:19:04 PTAGE: 72 years EKG: Sinus rhythm with 1st degree A-V block. Incomplete LBBB Abnormal ECG Compared to prior electrocardiogram, Nonspec ific T wave changes are more marked PREVIOUS TRACING : 09/15/2017 10.50 DOCTOR: Davi Craig Interpretating Date/Time 09/16/2017 07:24:00
[2017-09-16] MEDS ORDERED: SODIUM CHLOR 0.9% 1000 ML INJ 1,000 ML OTHER PRN ×2 (08:16)
[2017-09-16] MEDS ORDERED: SODIUM CHLOR 0.9% 1000 ML INJ 1,000 ML IV PRN (08:16)
[2017-09-16] MEDS ORDERED: MANNITOL 12.5 GM/50 ML VIAL IV PRN (08:30)
[2017-09-16] MEDS ORDERED: cloNIDine HCL 0.1 MG TAB PO PRN (08:30)
[2017-09-16] MEDS ORDERED: HEPARIN SODIUM - IV 10,000 UNITS/10 ML VIAL IV FLUSH PRN (08:30)
[2017-09-16] MEDS ORDERED: ONDANSETRON HCL 4 MG/2 ML VIAL IV PUSH PRN (08:30)
[2017-09-16] MEDS ORDERED: diphenhydrAMINE HCL 25 MG CAP PO PRN (08:30)
[2017-09-16] MEDS ORDERED: SODIUM CHLORIDE 0.9% FLUSH 10 ML FLUSH IV FLUSH PRN (08:30)
[2017-09-16] MEDS ORDERED: GELATIN 12 MM/7 MM FOAM TOP PRN (08:30)
[2017-09-16] MEDS ORDERED: NITROGLYCERIN 0.4 MG SL 25 TABS/BTL SL PRN (08:30)
[2017-09-16] MEDS ORDERED: ACETAMINOPHEN 325 MG TAB PO PRN (08:30)
[2017-09-16] MEDS: APIXABAN 5 MG TABLET PO SCH (08:33)
[2017-09-16] MEDS ORDERED: VITAMIN B CMPLX/VITC/FOLIC AC CAP PO SCH (09:00)
[2017-09-16] MEDS ORDERED: NON-FORMULARY DRUG (Fish Oil-Cholecalciferol (Omega-3 Fish Oil/Vitamin) 1 CAP) PO SCH (09:00)
[2017-09-16] MEDS ORDERED: CALCITRIOL 0.25 MCG CAP PO SCH (09:00)
[2017-09-16] MEDS ORDERED: DILTIAZEM-CD 120 MG CAP ER PO SCH (09:00)
[2017-09-16] MEDS: ALBUMIN 25% INJ 100 ML IV PRN ×2 (09:47→09:48)
[2017-09-16 10:49] LABS: HEMATOCRIT 25.4 % (39.0-51.0); HEMOGLOBIN 8.5 GM/DL (13.0-17.0)
--- NOTE | 2017-09-16 11:20 | PD.CONS ---
HPI Service Nephrology Consult Requested By Dr. Acosta Reason for Consult ESRD management Primary Care Physician Andres Alvarenga MD (Paul) History of Present Illness Patient is a 72-year-old white male with history of ESRD, hypertension, history of discitis, epidural abscess, atrial fibrillation who was on hemodialysis on Friday, and Friday, he was admitted for ablation procedure and had hematoma of the left groin post procedure, he is doing well he seen during hemodialysis, he states his blood pressure runs low, denies dizziness. Review of Systems Constitutional: COMPLAINS OF: Fatigue Musculoskeletal: COMPLAINS OF: Joint pain Past Family Social History Allergies: Coded Allergies: *MDRO Multi-Drug Resistant Organism (Verified Adverse Reaction, Unknown, ) MRSA PCR screen POSITIVE - 03/13/16 MRSA (blood)-10/29/16 Past Medical History ESRD Hypertension History of discitis Epidural abscess MRSA Hyperlipidemia Congestive heart failure CAD Atrial fibrillation Osteoarthritis Secondary hyperparathyroidism Past Surgical History CABG ORIF left wrist Rotator cuff surgery Back surgery Umbilical hernia repair AV fistula placed Tenckhoff catheter placement and removal Reported Medications Reported Meds & Active Scripts Active Velphoro (Sucroferric Oxyhydroxide) 500 Mg Chew 500 Mg CHEW TIDPC Reported [place]-3 Fish Oil/Vitamin (Fish Oil-Cholecalciferol) 1,000-1,000 Mg Cap 1 Cap PO DAILY Eliquis (Apixaban) 5 Mg Tab 5 Mg PO BID Co Q 10 (Coenzyme Q10 (Ubidecarenone)) 100 Mg-5 Unit Cap Cardizem CD 24 HR (Diltiazem CD 24 HR) 120 Mg Caper 120 Mg PO DAILY Temazepam 30 Mg Cap 30 Mg PO HS PRN Vielka-Jitendra (B-Complex W/ C & Folic Acid) 1 Tab 1 Tab PO DAILY Sensipar (Cinacalcet) 60 Mg Tab 60 Mg PO DAILY@1600 Calcitriol 0.5 Mcg Cap 0.5 Mcg PO DAILY Active Ordered Medications Current Medications Medications (Trade) Dose Ordered Sig/Zenobia Route Start Time Stop Time Status Last Admin Sodium Chloride 500 ml @ 30 mls/hr [id number] IV 09/15/17 06:30 09/15/17 07:15 (Ativan) 1 mg FORGE OPERATOR HELPER SL 09/15/17 06:30 09/18/17 06:29 Lactated Ringer's 1,000 ml @ 30 mls/hr Q24H PRN IV 09/15/17 06:30 09/18/17 06:29 Sodium Chloride 500 ml @ 30 mls/hr [id number] PRN IV 09/15/17 06:30 09/18/17 06:29 (Lopressor) 25 mg FORGE OPERATOR HELPER PRN PO 09/15/17 06:30 09/18/17 06:29 (Betadine 5% Antisepsis Kit) 1 applic FORGE OPERATOR HELPER PRN EACH NARE 09/15/17 06:30 09/18/17 06:29 (Chlorhexidine 2% Cloth) 3 pack FORGE OPERATOR HELPER PRN TOPICAL 09/15/17 06:30 09/18/17 06:29 (Percocet 5-325 Mg) 1 tab Q4H PRN PO 09/15/17 11:00 09/15/17 14:39 (Percocet 5-325 Mg) 2 tab Q4H PRN PO 09/15/17 11:00 09/16/17 02:42 (Atropine Inj) 0.5 mg UNSCH PRN IV PUSH 09/15/17 09:45 (Zofran Inj) 4 mg Q4H PRN IV PUSH 09/15/17 11:00 (Eliquis) 5 mg BID PO 09/15/17 21:00 09/16/17 08:33 (Rocaltrol) 0.5 mcg DAILY PO 09/16/17 09:00 09/16/17 08:33 (Cardizem Cd) 120 mg DAILY PO 09/16/17 09:00 09/16/17 08:33 (Restoril) 30 mg HS PRN PO 09/15/17 11:00 (Nephrocaps) 1 cap DAILY PO 09/16/17 09:00 09/16/17 08:33 (Sensipar) 60 mg DAILY@1600 PO 09/15/17 16:00 09/15/17 16:09 Patient Own Medication PT OWN MED: SUCROFERRIC OXYHYDROXIDE... TIDPC PO 09/15/17 13:30 Future Hold ([facility] Nursing Information) ALL NURSING DEPARTME... UNSCH PRN .XX 09/15/17 11:30 09/16/17 11:29 Sodium Chloride 1,000 ml @ 0 mls/hr Q0M PRN OTHER 09/16/17 08:16 (Heparin Inj) 8,000 units UNSCH PRN IV FLUSH 09/16/17 08:30 Sodium Chloride 1,000 ml @ 200 mls/hr Q5H PRN IV 09/16/17 08:16 Sodium Chloride 1,000 ml @ 0 mls/hr Q0M PRN OTHER 09/16/17 08:16 (Mannitol Inj) 12.5 gm UNSCH PRN IV 09/16/17 08:30 Albumin Human 100 ml @ 60 mls/hr UNSCH PRN IV 09/16/17 08:30 09/16/17 09:48 (NS Flush) 5 ml UNSCH PRN IV FLUSH 09/16/17 08:30 (Zofran Inj) 4 mg UNSCH PRN IV PUSH 09/16/17 08:30 (Tylenol) 650 mg UNSCH PRN PO 09/16/17 08:30 (Benadryl) 25 mg UNSCH PRN PO 09/16/17 08:30 (Nitrostat Sl) 0.4 mg UNSCH PRN SL 09/16/17 08:30 (Catapres) 0.1 mg UNSCH PRN PO 09/16/17 08:30 (Gelfoam 12 Mm/7 Mm Top) 1 foam UNSCH PRN TOP 09/16/17 08:30 Family History Noncontributory Social History Denies smoking or alcohol use Physical Exam Vital Signs Vital Signs Date Time Temp Pulse Resp B/P (MAP) Pulse Ox O2 Delivery O2 Flow Rate FiO2 09/16/17 08:00 94 09/16/17 07:00 90 09/16/17 07:00 97.8 90 16 110/60 (77) 95 09/16/17 05:00 90 09/16/17 04:00 90 09/16/17 03:00 98.6 88 18 102/60 (74) 92 09/16/17 03:00 90 09/16/17 02:00 89 09/16/17 01:00 86 09/16/17 00:00 98.6 90 18 103/62 (76) 93 09/16/17 00:00 90 09/15/17 23:00 89 09/15/17 22:00 88 09/15/17 21:00 92 09/15/17 20:09 98.2 90 18 107/65 (79) 96 09/15/17 20:00 90 09/15/17 19:00 90 09/15/17 18:00 87 09/15/17 17:00 89 09/15/17 16:00 85 09/15/17 15:00 91 09/15/17 15:00 97.6 91 20 117/58 (77) 97 09/15/17 14:00 83 09/15/17 13:24 98.1 87 20 150/66 (94) 94 09/15/17 13:00 97.6 87 16 133/60 (84) 97 Nasal Cannula 2 09/15/17 12:00 86 16 124/63 (83) 97 Nasal Cannula 2 09/15/17 11:30 97.5 85 16 125/60 (81) 96 Nasal Cannula 2 09/15/17 11:15 84 16 123/62 (82) 96 Nasal Cannula 2 Physical Exam GENERAL: Well-nourished, well-developed patient. SKIN: Warm and dry. HEAD: Normocephalic. EYES: No scleral icterus. No injection or drainage. NECK: Supple, trachea midline. No JVD or lymphadenopathy. CARDIOVASCULAR: Regular rate and rhythm with 3/ 6 systolic murmurs, RESPIRATORY: Breath sounds equal bilaterally. No accessory muscle use. GASTROINTESTINAL: Abdomen soft, non-tender, nondistended. EXTREMITIES: No cyanosis, or edema. NEUROLOGICAL: Awake, alert, and oriented x 3. Non-focal. Laboratory Laboratory Tests Test 09/16/17 03:49 09/16/17 09:30 Prothrombin Time 10.8 Prothromb Time International Ratio 1.1 Activated Partial Thromboplast Time 27.5 Hemoglobin 8.5 Hematocrit 25.4 Result Diagram: 09/16/17 0930 09/15/17 0632 Assessment and Plan Problem List: (1) ESRD (end stage renal disease) on dialysis ICD Codes: N18.6 - End stage renal disease; Z99.2 - Dependence on renal dialysis Status: Chronic Plan: Patient is seen during hemodialysis blood pressure is He has left groin hematoma Give Epogen 10,000 Significant drop in his hemoglobin Blood pressure is on lower side Continue to monitor (2) Atrial fibrillation ICD Codes: I48.91 - Unspecified atrial fibrillation Plan: He has ablation procedure done (3) Aortic stenosis ICD Codes: I35.0 - Nonrheumatic aortic (valve) stenosis Status: Chronic Plan: Continue to monitor (4) CAD (coronary artery disease) ICD Codes: I25.10 - Atherosclerotic heart disease of [employer] coronary artery without angina pectoris Status: Acute Plan: Stable Problem Qualifiers (1) Aortic stenosis: Qualified Codes: I35.0 - Nonrheumatic aortic (valve) stenosis Araceli Freire MD September 16, 2017 11:20
[2017-09-16] MEDS ORDERED: EPOETIN ALFA 10,000 UNITS/ML VIAL IV PUSH PRN (11:30)
--- NOTE | 2017-09-16 14:40 | HHI.PR ---
Subjective Remarks feeling fine Objective Vital Signs Date Time Temp Pulse Resp B/P (MAP) Pulse Ox O2 Delivery O2 Flow Rate FiO2 09/16/17 14:00 105 09/16/17 13:00 104 09/16/17 08:00 94 09/16/17 07:00 90 09/16/17 07:00 97.8 90 16 110/60 (77) 95 09/16/17 05:00 90 09/16/17 04:00 90 09/16/17 03:00 98.6 88 18 102/60 (74) 92 09/16/17 03:00 90 09/16/17 02:00 89 09/16/17 01:00 86 09/16/17 00:00 98.6 90 18 103/62 (76) 93 09/16/17 00:00 90 09/15/17 23:00 89 09/15/17 22:00 88 09/15/17 21:00 92 09/15/17 20:09 98.2 90 18 107/65 (79) 96 09/15/17 20:00 90 09/15/17 19:00 90 09/15/17 18:00 87 09/15/17 17:00 89 09/15/17 16:00 85 09/15/17 15:00 91 09/15/17 15:00 97.6 91 20 117/58 (77) 97 I/O 09/15/17 09/15/17 09/15/17 09/16/17 09/16/17 09/16/17 07:00 15:00 23:00 07:00 15:00 23:00 Intake Total 720 ml 482 ml Output Total 0 ml 0 ml 1500 ml Balance 720 ml 482 ml -1500 ml Intake Oral 720 ml 482 ml Output Urine Total 0 ml 0 ml Hemodialysis 1500 ml # Voids 0 0 # Bowel Movements 0 0 Result Diagram: 09/16/17 0930 09/15/17 0632 Imaging Alert, fully oriented Lungs: ventilated Heart: s1, S2 regular , no gallop Abdomen: soft, no mass Ext: no edema Last Impressions Lower Extremity Ultrasound 09/15/17 0000 Signed Impressions: Service Date/Time: Friday, September 15, 2017 16:36 - CONCLUSION: 1. No femoral pseudoaneurysm as questioned. 2. Large groin hematoma measuring 15.1 x 7.2 x 1.2 cm. Kane Chapin MD Current Medications Medications (Trade) Dose Ordered Sig/Zenobia Route Start Time Stop Time Status Last Admin Sodium Chloride 500 ml @ 30 mls/hr [id number] IV 09/15/17 06:30 09/15/17 07:15 (Ativan) 1 mg BACTERIOLOGIST SOIL SL 09/15/17 06:30 09/18/17 06:29 Lactated Ringer's 1,000 ml @ 30 mls/hr Q24H PRN IV 09/15/17 06:30 09/18/17 06:29 Sodium Chloride 500 ml @ 30 mls/hr [id number] PRN IV 09/15/17 06:30 09/18/17 06:29 (Lopressor) 25 mg BACTERIOLOGIST SOIL PRN PO 09/15/17 06:30 09/18/17 06:29 (Betadine 5% Antisepsis Kit) 1 applic BACTERIOLOG[facility] SOIL PRN EACH NARE 09/15/17 06:30 09/18/17 06:29 (Chlorhexidine 2% Cloth) 3 pack BACTERIOLOG[employer] SOIL PRN TOPICAL 09/15/17 06:30 09/18/17 06:29 (Percocet 5-325 Mg) 1 tab Q4H PRN PO 09/15/17 11:00 09/15/17 14:39 (Percocet 5-325 Mg) 2 tab Q4H PRN PO 09/15/17 11:00 09/16/17 02:42 (Atropine Inj) 0.5 mg UNSCH PRN IV PUSH 09/15/17 09:45 (Zofran Inj) 4 mg Q4H PRN IV PUSH 09/15/17 11:00 (Eliquis) 5 mg BID PO 09/15/17 21:00 09/16/17 08:33 (Rocaltrol) 0.5 mcg DAILY PO 09/16/17 09:00 09/16/17 08:33 (Cardizem Cd) 120 mg DAILY PO 09/16/17 09:00 09/16/17 08:33 (Restoril) 30 mg HS PRN PO 09/15/17 11:00 (Nephrocaps) 1 cap DAILY PO 09/16/17 09:00 09/16/17 08:33 (Sensipar) 60 mg DAILY@1600 PO 09/15/17 16:00 09/15/17 16:09 Patient Own Medication PT OWN MED: SUCROFERRIC OXYHYDROXIDE... TIDPC PO 09/15/17 13:30 Future Hold Sodium Chloride 1,000 ml @ 0 mls/hr Q0M PRN OTHER 09/16/17 08:16 (Heparin Inj) 8,000 units UNSCH PRN IV FLUSH 09/16/17 08:30 Sodium Chloride 1,000 ml @ 200 mls/hr Q5H PRN IV 09/16/17 08:16 Sodium Chloride 1,000 ml @ 0 mls/hr Q0M PRN OTHER 09/16/17 08:16 (Mannitol Inj) 12.5 gm UNSCH PRN IV 09/16/17 08:30 Albumin Human 100 ml @ 60 mls/hr UNSCH PRN IV 09/16/17 08:30 09/16/17 09:48 (NS Flush) 5 ml UNSCH PRN IV FLUSH 09/16/17 08:30 (Zofran Inj) 4 mg UNSCH PRN IV PUSH 09/16/17 08:30 (Tylenol) 650 mg UNSCH PRN PO 09/16/17 08:30 (Benadryl) 25 mg UNSCH PRN PO 09/16/17 08:30 (Nitrostat Sl) 0.4 mg UNSCH PRN SL 09/16/17 08:30 (Catapres) 0.1 mg UNSCH PRN PO 09/16/17 08:30 (Gelfoam 12 Mm/7 Mm Top) 1 foam UNSCH PRN TOP 09/16/17 08:30 (Epogen Inj) 10,000 units UNSCH PRN IV PUSH 09/16/17 11:30 Assessment and Plan Problem List: (1) Atrial fibrillation ICD Codes: I48.91 - Unspecified atrial fibrillation Plan: SP ablation In sinus rhythm Doing well Left leg hematoma resolved Hb decreases can be DH Follow up in 2 weeks patient advise not to lift any weight for the next 2 weeks (2) ESRD (end stage renal disease) on dialysis ICD Codes: N18.6 - End stage renal disease; Z99.2 - Dependence on renal dialysis Status: Chronic Plan: SP HD today can be DH Rocco Acosta MD September 16, 2017 14:40
[2017-09-16] MEDS ORDERED: ASPI-183 PO (15:12)
[2017-09-16] MEDS ORDERED: AMIO200T PO (15:12)
[2017-09-16] MEDS ORDERED: LEVO50TA4 PO (15:13)
== END 2017-09-16 17:00 | disposition home or self-care (01) ==
LOC: HDOC 05:53 → HDIC 05:53 → HCPC 13:26 → HDOC 09-16 17:00
PROVIDERS: ATTEND Internal Medicine Interventional Cardiology
DX: I48.0 Paroxysmal atrial fibrillation (principal); R00.2 Palpitations; I13.2 Hypertensive heart and chronic kidney disease with heart failure and with stage 5 chronic kidney disease, or end stage renal disease; E11.22 Type 2 diabetes mellitus with diabetic chronic kidney disease; I50.9 Heart failure, unspecified; N18.6 End stage renal disease; I97.621 Postprocedural hematoma of a circulatory system organ or structure following other procedure; R06.00 Dyspnea, unspecified; E78.5 Hyperlipidemia, unspecified; Z79.01 Long term (current) use of anticoagulants; Z95.1 Presence of aortocoronary bypass graft; Z99.2 Dependence on renal dialysis
CPT/HCPCS: 00537; 80048; 85002; 85014; 85018; 85025; 85610; 85730; 86850; 86900; 86901; 90935; 93005; 93312; 93320; 93325; 93613; 93623; 93656; 93662; 93926; C1730; C1731; C1732; C1759; C1760; C1766; C2630; G0269; J1100; J1644; J2370; J2405; J2710; J2720; J3010; J7040; P9047; 93620